=== PATIENT | female | born 1955 | race Caucasian/White ===

== ENCOUNTER 2020-03-06 14:53 | Outpatient (REF) | payer OTHER, SELFPAY ==
[2020-03-06 15:07] LABS: Basophils Percent Auto 0.4 % (0-2); Eosinophils Absolute Auto 0.1 X10*3/uL (0.0-0.4); Eosinophils Percent Auto 1.2 % (0-4); Hematocrit 41.4 % (37-47); Hemoglobin 13.5 g/dl (12.0-16.0); Imm Gran Abs Auto 0.03 X10*3/uL (0.00-0.03); Imm Gran Pct Auto 0.3 % (0.0-0.4); Lymphocytes Absolute Auto 1.8 X10*3/uL (1.2-4.9); Lymphocytes Percent Auto 18.1 % (20-40); MANUAL DIFF FLAG NO; Mean Corpuscular HGB Conc 32.6 g/dl (31.0-35.0); Mean Corpuscular Hemoglobin 33.4 pg (27.0-33.0); Mean Corpuscular Volume 102.5 fL (80-98); Mean Platelet Volume 9.5 fL (9.4-12.3); Monocytes Percent Auto 9.4 % (2-11); Neutrophils Absolute Auto 7.2 X10*3/uL (2.0-8.3); Neutrophils Percent Auto 70.6 % (45-73); Platelet Count 347 X10*3/uL (160-400); Red Blood Count 4.04 X10*6/uL (4.20-5.50); Red Cell Distribution Width 13.5 % (11.0-16.0); White Blood Count 10.1 X10*3/uL (4.8-10.8)
== END 2020-03-06 14:54 | disposition home or self-care (01) ==
LOC: HO.BBR 14:53
PROVIDERS: Visit Provider Internal Medicine Medical Oncology
DX: D75.1 Secondary polycythemia (principal)
CPT/HCPCS: 36415; 85018; 85025; 99195

== ENCOUNTER → 2020-03-24 14:39 | Outpatient (BNVA) | payer OTHER, SELFPAY | PROVIDERS: PCP Internal Medicine; Referring Provider Internal Medicine; Visit Provider Surgery | DX: Z76.89 Persons encountering health services in other specified circumstances (principal) ==

== ENCOUNTER 2020-06-22 12:58 | Outpatient (REF) | payer OTHER, SELFPAY ==
[2020-06-22 13:19] LABS: MANUAL DIFF FLAG NO
[2020-06-22 13:21] LABS: Basophils Absolute Auto 0.1 X10*3/uL (0.0-0.2); Basophils Percent Auto 0.5 % (0-2); Eosinophils Absolute Auto 0.1 X10*3/uL (0.0-0.4); Eosinophils Percent Auto 1.3 % (0-4); Hematocrit 41.8 % (37-47); Hemoglobin 13.7 g/dl (12.0-16.0); Imm Gran Abs Auto 0.04 X10*3/uL (0.00-0.03); Imm Gran Pct Auto 0.4 % (0.0-0.4); Lymphocytes Absolute Auto 2.1 X10*3/uL (1.2-4.9); Lymphocytes Percent Auto 20.8 % (20-40); Mean Corpuscular HGB Conc 32.8 g/dl (31.0-35.0); Mean Corpuscular Hemoglobin 33.1 pg (27.0-33.0); Mean Platelet Volume 9.6 fL (9.4-12.3); Monocytes Absolute Auto 0.8 X10*3/uL (0.1-1.2); Monocytes Percent Auto 7.9 % (2-11); Neutrophils Absolute Auto 7.1 X10*3/uL (2.0-8.3); Neutrophils Percent Auto 69.1 % (45-73); Platelet Count 343 X10*3/uL (160-400); Red Blood Count 4.14 X10*6/uL (4.20-5.50); Red Cell Distribution Width 13.6 % (11.0-16.0); White Blood Count 10.3 X10*3/uL (4.8-10.8)
== END 2020-06-22 12:59 | disposition home or self-care (01) ==
LOC: HO.BBR 12:58
PROVIDERS: Visit Provider Internal Medicine Medical Oncology
DX: D75.1 Secondary polycythemia (principal)
CPT/HCPCS: 36415; 85018; 85025; 99195

== ENCOUNTER 2020-08-21 13:14 | Outpatient (REF) | payer OTHER, SELFPAY ==
[2020-08-21 13:37] LABS: MANUAL DIFF FLAG NO
[2020-08-21 13:40] LABS: Basophils Percent Auto 0.3 % (0-2); Eosinophils Absolute Auto 0.2 X10*3/uL (0.0-0.4); Eosinophils Percent Auto 1.8 % (0-4); Hematocrit 41.5 % (37-47); Hemoglobin 13.6 g/dl (12.0-16.0); Imm Gran Abs Auto 0.01 X10*3/uL (0.00-0.03); Imm Gran Pct Auto 0.1 % (0.0-0.4); Lymphocytes Absolute Auto 2.2 X10*3/uL (1.2-4.9); Lymphocytes Percent Auto 23.5 % (20-40); Mean Corpuscular HGB Conc 32.8 g/dl (31.0-35.0); Mean Corpuscular Hemoglobin 32.4 pg (27.0-33.0); Mean Corpuscular Volume 98.8 fL (80-98); Mean Platelet Volume 9.5 fL (9.4-12.3); Monocytes Absolute Auto 0.7 X10*3/uL (0.1-1.2); Monocytes Percent Auto 7.8 % (2-11); Neutrophils Absolute Auto 6.3 X10*3/uL (2.0-8.3); Neutrophils Percent Auto 66.5 % (45-73); Platelet Count 355 X10*3/uL (160-400); Red Cell Distribution Width 13.2 % (11.0-16.0); White Blood Count 9.5 X10*3/uL (4.8-10.8)
== END 2020-08-21 13:15 | disposition home or self-care (01) ==
LOC: HO.BBR 13:14
PROVIDERS: Visit Provider Internal Medicine Medical Oncology
DX: D75.1 Secondary polycythemia (principal)
CPT/HCPCS: 36415; 85018; 85025; 99195

== ENCOUNTER 2020-10-10 10:25 | Outpatient (REF) | payer OTHER, SELFPAY ==
--- NOTE | ~2020-10-10 | MM_ITS ---
EXAMINATION: MM DIAGNOSTIC DIGITAL BREAST TOMOSYNTHESIS, BILATERAL CLINICAL INFORMATION: Status post left breast lumpectomy COMPARISON: Mammography: August 23, 2019 and studies dating back to February 15, 2010 TECHNIQUE: Digital breast tomosynthesis is performed in both the craniocaudal and mediolateral oblique views along with computer-aided detection (CAD). Synthesized 2D images are generated from the tomosynthesis. Additional spot magnification views of the left breast in craniocaudal and 90 degree mediolateral views performed. FINDINGS: There are scattered areas of fibroglandular density (ACR BI-RADS breast composition Category b). Patient is status post left breast lumpectomy and radiation therapy with postsurgical scarring and skin thickening. No new abnormal dominant mass is appreciated. No suspicious grouping of microcalcifications is seen. Results are provided to the patient at time of visit by the technologist. MM/MM tomosynthesis diagnostic BI IMPRESSION: There are no significant changes from prior study. ASSESSMENT: BI-RADS 2: Benign RECOMMENDATION: Routine annual mammography screening due in 12 months. This patient's information was entered into a reminder system with a target due date for their next mammogram.
== END 2020-10-10 10:26 | disposition home or self-care (01) ==
LOC: HO.MAMMO 10:25
PROVIDERS: Visit Provider Internal Medicine
DX: R92.2 Inconclusive mammogram (principal); Z98.890 Other specified postprocedural states
CPT/HCPCS: 77062; 77066

== ENCOUNTER 2020-11-09 14:52 | Outpatient (REF) | payer OTHER, SELFPAY ==
[2020-11-09 15:05] LABS: Basophils Absolute Auto 0.1 X10*3/uL (0.0-0.2); Basophils Percent Auto 0.5 % (0-2); Eosinophils Absolute Auto 0.2 X10*3/uL (0.0-0.4); Eosinophils Percent Auto 1.3 % (0-4); Hematocrit 43.5 % (37-47); Hemoglobin 14.1 g/dl (12.0-16.0); Imm Gran Abs Auto 0.05 X10*3/uL (0.00-0.03); Imm Gran Pct Auto 0.4 % (0.0-0.4); Lymphocytes Absolute Auto 1.8 X10*3/uL (1.2-4.9); Lymphocytes Percent Auto 14.9 % (20-40); MANUAL DIFF FLAG NO; Mean Corpuscular HGB Conc 32.4 g/dl (31.0-35.0); Mean Corpuscular Hemoglobin 32.6 pg (27.0-33.0); Mean Corpuscular Volume 100.7 fL (80-98); Mean Platelet Volume 9.5 fL (9.4-12.3); Monocytes Absolute Auto 0.9 X10*3/uL (0.1-1.2); Monocytes Percent Auto 7.3 % (2-11); Neutrophils Absolute Auto 9.1 X10*3/uL (2.0-8.3); Neutrophils Percent Auto 75.6 % (45-73); Platelet Count 368 X10*3/uL (160-400); Red Blood Count 4.32 X10*6/uL (4.20-5.50); Red Cell Distribution Width 14.3 % (11.0-16.0); White Blood Count 12.1 X10*3/uL (4.8-10.8)
== END 2020-11-09 14:53 | disposition home or self-care (01) ==
LOC: HO.BBR 14:52
PROVIDERS: Visit Provider Internal Medicine Medical Oncology
DX: D75.1 Secondary polycythemia (principal)
CPT/HCPCS: 36415; 85025

== ENCOUNTER 2020-11-17 06:26 | Outpatient (REF) | payer OTHER, SELFPAY ==
[2020-11-17 06:54] LABS: MANUAL DIFF FLAG NO
[2020-11-17 06:59] LABS: Basophils Absolute Auto 0.1 X10*3/uL (0.0-0.2); Basophils Percent Auto 0.6 % (0-2); Eosinophils Absolute Auto 0.2 X10*3/uL (0.0-0.4); Eosinophils Percent Auto 2.2 % (0-4); Hematocrit 43.2 % (37-47); Hemoglobin 14.1 g/dl (12.0-16.0); Imm Gran Abs Auto 0.04 X10*3/uL (0.00-0.03); Imm Gran Pct Auto 0.5 % (0.0-0.4); Lymphocytes Absolute Auto 1.5 X10*3/uL (1.2-4.9); Lymphocytes Percent Auto 19.1 % (20-40); Mean Corpuscular HGB Conc 32.6 g/dl (31.0-35.0); Mean Corpuscular Hemoglobin 32.6 pg (27.0-33.0); Mean Corpuscular Volume 99.8 fL (80-98); Mean Platelet Volume 9.9 fL (9.4-12.3); Monocytes Absolute Auto 0.6 X10*3/uL (0.1-1.2); Monocytes Percent Auto 7.9 % (2-11); Neutrophils Absolute Auto 5.5 X10*3/uL (2.0-8.3); Neutrophils Percent Auto 69.7 % (45-73); Platelet Count 365 X10*3/uL (160-400); Red Blood Count 4.33 X10*6/uL (4.20-5.50); White Blood Count 7.9 X10*3/uL (4.8-10.8)
[2020-11-17 07:25] LABS: Alanine Aminotransferase 16 U/L (0-31); Albumin Level 4.1 g/dL (3.5-5.0); Alkaline Phosphatase 79 U/L (39-117); Anion Gap 13 (12-20); Aspartate Amino Transferase 19 U/L (5-31); Bilirubin Total 0.6 mg/dL (0.0-1.0); Blood Urea Nitrogen 16 mg/dL (9-16); Calcium 9.4 mg/dL (8.4-10.2); Carbon Dioxide 27 mmol/L (22-29); Chloride 105 mmol/L (96-108); Cholesterol 159 mg/dL; Estimated Glomerular Filt Rate > 60; Glucose Random 113 mg/dL (60-115); HDL Cholesterol 39 mg/dL; LDL Cholesterol Calculated 105 mg/dl; Potassium 4.6 mmol/L (3.3-5.1); Sodium 140 mmol/L (135-145); Total Protein 7.4 g/dL (6.5-8.0); Triglycerides 78 mg/dL
== END 2020-11-17 06:27 | disposition home or self-care (01) ==
LOC: HO.LAB 06:26
PROVIDERS: PCP Internal Medicine; Visit Provider Internal Medicine
DX: E78.2 Mixed hyperlipidemia (principal); I10 Essential (primary) hypertension; J01.80 Other acute sinusitis; J03.90 Acute tonsillitis, unspecified
CPT/HCPCS: 36415; 80053; 80061; 85025

== ENCOUNTER 2021-01-12 14:57 | Outpatient (REF) | payer OTHER, SELFPAY ==
[2021-01-12 15:10] LABS: MANUAL DIFF FLAG NO
[2021-01-12 15:11] LABS: Basophils Percent Auto 0.3 % (0-2); Eosinophils Absolute Auto 0.2 X10*3/uL (0.0-0.4); Eosinophils Percent Auto 1.6 % (0-4); Hematocrit 42.6 % (37-47); Hemoglobin 14.1 g/dl (12.0-16.0); Imm Gran Abs Auto 0.03 X10*3/uL (0.00-0.03); Imm Gran Pct Auto 0.3 % (0.0-0.4); Lymphocytes Absolute Auto 1.7 X10*3/uL (1.2-4.9); Lymphocytes Percent Auto 14.5 % (20-40); Mean Corpuscular HGB Conc 33.1 g/dl (31.0-35.0); Mean Corpuscular Hemoglobin 33.4 pg (27.0-33.0); Mean Corpuscular Volume 100.9 fL (80-98); Mean Platelet Volume 9.6 fL (9.4-12.3); Monocytes Percent Auto 8.5 % (2-11); Neutrophils Absolute Auto 8.8 X10*3/uL (2.0-8.3); Neutrophils Percent Auto 74.8 % (45-73); Platelet Count 386 X10*3/uL (160-400); Red Blood Count 4.22 X10*6/uL (4.20-5.50); Red Cell Distribution Width 13.7 % (11.0-16.0); White Blood Count 11.7 X10*3/uL (4.8-10.8)
== END 2021-01-12 14:58 | disposition home or self-care (01) ==
LOC: HO.BBR 14:57
PROVIDERS: PCP Internal Medicine; Visit Provider Internal Medicine Medical Oncology
DX: D75.1 Secondary polycythemia (principal)
CPT/HCPCS: 36415; 85014; 85018; 85025; 99195

== ENCOUNTER 2021-03-15 14:49 | Outpatient (REF) | payer OTHER, SELFPAY ==
[2021-03-15 15:04] LABS: Hematocrit 40.6 % (37.0-47.0); Hemoglobin 13.4 g/dl (12.0-16.0); Mean Platelet Volume 9.5 fL (9.4-12.3); Platelet Count 381 X10*3/uL (160-400); Red Blood Count 3.94 X10*6/uL (4.20-5.50); Red Cell Distribution Width 14.5 % (11.0-16.0); White Blood Count 11.3 X10*3/uL (4.8-10.8)
== END 2021-03-15 14:50 | disposition home or self-care (01) ==
LOC: HO.BBR 14:49
PROVIDERS: PCP Internal Medicine; Visit Provider Internal Medicine Medical Oncology
DX: D75.1 Secondary polycythemia (principal)
CPT/HCPCS: 36415; 85027

== ENCOUNTER 2021-05-13 14:44 | Outpatient (REF) | payer OTHER, SELFPAY ==
[2021-05-13 14:53] LABS: MANUAL DIFF FLAG NO
[2021-05-13 14:55] LABS: Basophils Percent Auto 0.2 % (0-2); Eosinophils Absolute Auto 0.2 X10*3/uL (0.0-0.4); Eosinophils Percent Auto 1.6 % (0-4); Hematocrit 39.9 % (37.0-47.0); Imm Gran Abs Auto 0.06 X10*3/uL (0.00-0.03); Imm Gran Pct Auto 0.5 % (0.0-0.4); Lymphocytes Absolute Auto 1.7 X10*3/uL (1.2-4.9); Lymphocytes Percent Auto 13.2 % (20-40); Mean Corpuscular HGB Conc 32.6 g/dl (31.0-35.0); Mean Corpuscular Hemoglobin 33.9 pg (27.0-33.0); Mean Corpuscular Volume 104.2 fL (80.0-98.0); Mean Platelet Volume 9.8 fL (9.4-12.3); Monocytes Absolute Auto 1.1 X10*3/uL (0.1-1.2); Monocytes Percent Auto 8.2 % (2-11); Neutrophils Absolute Auto 9.8 x10*3/uL (2.0-8.3); Neutrophils Percent Auto 76.3 % (45-73); Platelet Count 303 X10*3/uL (160-400); Red Blood Count 3.83 X10*6/uL (4.20-5.50); Red Cell Distribution Width 13.6 % (11.0-16.0); White Blood Count 12.9 X10*3/uL (4.8-10.8)
== END 2021-05-13 14:45 | disposition home or self-care (01) ==
LOC: HO.BBR 14:44
PROVIDERS: Visit Provider Internal Medicine Medical Oncology
DX: D75.1 Secondary polycythemia (principal)
CPT/HCPCS: 36415; 85025

== ENCOUNTER 2021-06-28 07:16 | Outpatient (REF) | payer OTHER, SELFPAY ==
[2021-06-28 07:44] LABS: MANUAL DIFF FLAG NO
[2021-06-28 08:01] LABS: Basophils Absolute Auto 0.1 X10*3/uL (0.0-0.2); Basophils Percent Auto 0.7 % (0-2); Eosinophils Absolute Auto 0.2 X10*3/uL (0.0-0.4); Eosinophils Percent Auto 3.1 % (0-4); Hematocrit 42.5 % (37.0-47.0); Hemoglobin 13.9 g/dl (12.0-16.0); Imm Gran Abs Auto 0.02 X10*3/uL (0.00-0.03); Imm Gran Pct Auto 0.3 % (0.0-0.4); Lymphocytes Absolute Auto 1.5 X10*3/uL (1.2-4.9); Lymphocytes Percent Auto 20.1 % (20-40); Mean Corpuscular HGB Conc 32.7 g/dl (31.0-35.0); Mean Corpuscular Hemoglobin 33.5 pg (27.0-33.0); Mean Corpuscular Volume 102.4 fL (80.0-98.0); Monocytes Absolute Auto 0.6 X10*3/uL (0.1-1.2); Monocytes Percent Auto 8.4 % (2-11); Neutrophils Absolute Auto 5.2 x10*3/uL (2.0-8.3); Neutrophils Percent Auto 67.4 % (45-73); Platelet Count 382 X10*3/uL (160-400); Red Blood Count 4.15 X10*6/uL (4.20-5.50); Red Cell Distribution Width 13.2 % (11.0-16.0); White Blood Count 7.7 X10*3/uL (4.8-10.8)
[2021-06-28 08:26] LABS: Alanine Aminotransferase 20 U/L (0-31); Alkaline Phosphatase 72 U/L (39-117); Anion Gap 11 (12-20); Aspartate Amino Transferase 18 U/L (5-31); Bilirubin Total 0.6 mg/dL (0.0-1.0); Blood Urea Nitrogen 26 mg/dL (9-16); Calcium 9.4 mg/dL (8.4-10.2); Carbon Dioxide 29 mmol/L (22-29); Chloride 101 mmol/L (96-108); Cholesterol 145 mg/dL; Estimated Glomerular Filt Rate 57; Glucose Random 104 mg/dL (60-115); HDL Cholesterol 34 mg/dL; LDL Cholesterol Calculated 89 mg/dl; Potassium 4.9 mmol/L (3.3-5.1); Sodium 136 mmol/L (135-145); Total Protein 7.2 g/dL (6.5-8.0); Triglycerides 111 mg/dL
[2021-06-28 08:45] LABS: Erythrocyte Sedimentation Rate 16 MM/HR (0-20)
[2021-06-28 08:48] LABS: Thyroid Stimulating Hormone 1.45 uIU/mL (0.32-4.0)
== END 2021-06-28 07:17 | disposition home or self-care (01) ==
LOC: HO.LAB 07:16
PROVIDERS: Absent Provider Internal Medicine Medical Oncology; PCP Internal Medicine; Visit Provider Internal Medicine
DX: Z00.01 Encounter for general adult medical examination with abnormal findings (principal); M48.062 Spinal stenosis, lumbar region with neurogenic claudication; I10 Essential (primary) hypertension; E78.00 Pure hypercholesterolemia, unspecified; C50.412 Malignant neoplasm of upper-outer quadrant of left female breast; E66.9 Obesity, unspecified; E61.1 Iron deficiency
CPT/HCPCS: 36415; 80053; 80061; 84443; 85025; 85652

== ENCOUNTER 2021-07-12 14:46 | Outpatient (REF) | payer OTHER, SELFPAY ==
[2021-07-12 15:06] LABS: Hematocrit 40.3 % (37.0-47.0); Hemoglobin 13.4 g/dl (12.0-16.0); Mean Corpuscular HGB Conc 33.3 g/dl (31.0-35.0); Mean Corpuscular Hemoglobin 33.3 pg (27.0-33.0); Mean Corpuscular Volume 100.2 fL (80.0-98.0); Mean Platelet Volume 9.9 fL (9.4-12.3); Platelet Count 334 X10*3/uL (160-400); Red Blood Count 4.02 X10*6/uL (4.20-5.50); Red Cell Distribution Width 13.1 % (11.0-16.0); White Blood Count 9.5 X10*3/uL (4.8-10.8)
== END 2021-07-12 14:47 | disposition home or self-care (01) ==
LOC: HO.BBR 14:46
PROVIDERS: Visit Provider Internal Medicine Medical Oncology
DX: D75.1 Secondary polycythemia (principal)
CPT/HCPCS: 36415; 85014; 85018; 85027; 99195

== ENCOUNTER 2021-09-21 14:40 | Outpatient (REF) | payer OTHER, SELFPAY ==
[2021-09-21 14:52] LABS: MANUAL DIFF FLAG NO
[2021-09-21 14:56] LABS: Basophils Percent Auto 0.4 % (0-2); Eosinophils Absolute Auto 0.2 X10*3/uL (0.0-0.4); Eosinophils Percent Auto 1.7 % (0-4); Hematocrit 41.6 % (37.0-47.0); Hemoglobin 13.6 g/dl (12.0-16.0); Imm Gran Abs Auto 0.04 X10*3/uL (0.00-0.03); Imm Gran Pct Auto 0.4 % (0.0-0.4); Lymphocytes Absolute Auto 1.9 X10*3/uL (1.2-4.9); Lymphocytes Percent Auto 17.5 % (20-40); Mean Corpuscular HGB Conc 32.7 g/dl (31.0-35.0); Mean Corpuscular Hemoglobin 32.7 pg (27.0-33.0); Mean Platelet Volume 9.8 fL (9.4-12.3); Monocytes Percent Auto 9.2 % (2-11); Neutrophils Absolute Auto 7.9 x10*3/uL (2.0-8.3); Neutrophils Percent Auto 70.8 % (45-73); Platelet Count 374 X10*3/uL (160-400); Red Blood Count 4.16 X10*6/uL (4.20-5.50); Red Cell Distribution Width 13.3 % (11.0-16.0); White Blood Count 11.1 X10*3/uL (4.8-10.8)
== END 2021-09-21 14:41 | disposition home or self-care (01) ==
LOC: HO.BBR 14:40
PROVIDERS: Visit Provider Internal Medicine Medical Oncology
DX: D75.1 Secondary polycythemia (principal)
CPT/HCPCS: 36415; 85018; 85025; 99195

== ENCOUNTER 2021-10-06 00:24 | Inpatient (IN) | payer OTHER, SELFPAY ==
[2021-10-06] VITALS (7 sets, daily range): BP systolic 148–185; BP diastolic 63–88; PULSE 72–87; RESP 14–20; TEMP 35.7–36.8; O2SAT 89–99; BMI 36.2
--- NOTE | ~2021-10-06 | CT_ITS ---
EXAMINATION: CT SOFT TISSUE NECK WITH CONTRAST CLINICAL INFORMATION: Peritonsillar abscess. COMPARISON: None TECHNIQUE: Following the intravenous administration of 98 mL of Omnipaque 350 intravenous contrast, helical imaging was performed in the axial plane with generation of coronal and sagittal reformatted images. This CT examination was performed using dose optimization techniques as appropriate, variously including the following: *Automated exposure control *Adjustment of mA and/or kV according to patient size (this includes techniques or standardized protocols for targeted exams where dose is matched to indication/reason for exam; i.e. extremities or head) *Use of iterative reconstruction technique DLP: 702 mGy-cm FINDINGS: Diffuse asymmetric prominence of the right palatine tonsil is noted. Mild reticulation of the peritonsillar fat is noted with findings extending to the right parapharyngeal fat and right submandibular region. No discrete tonsillar or peritonsillar fluid collection is identified. Enlargement of the right tonsil results in partial effacement of the adjacent airway. The left tonsil is less prominent size but exhibits mild diffuse fullness. Incidental note is made of bilateral tonsilliths. Of note, multifocal dental amalgam is present and gives rise to scattering artifact partially scattering visualization of adjacent transaxial structures. No lymphadenopathy is noted. Mild nonocclusive bilateral carotid bulb calcific and noncalcific atherosclerotic plaque is visualized. The visualized lung apices are clear. The thyroid is normal in appearance. Normal intraluminal opacification is noted in the internal jugular veins. The parotid and visualized submandibular glands are normal in appearance. Within the incidentally visualized intracranial structures, no gross abnormalities are noted. The orbits and globes are normal in appearance. No significant opacification of the visualized paranasal sinuses, mastoid air cells and middle ear cavities. Moderate intervertebral disc space narrowing and endplate osteophytosis is present at C5-C6. CT/CT soft tissue neck w con IMPRESSION: *Diffuse enlargement of the right palatine tonsil with mild surrounding inflammatory changes which extend to the right submandibular region. No discrete tonsillar or peritonsillar abscess identified. Enlargement of the right tonsil partially effaces the adjacent airway.
--- NOTE | 2021-10-06 01:20 | PC.NURSE ---
Pt self presents from home with reports of sore throat beginning this morning, significant swelling to primarily right tonsil and roof of mouth beginning late afternoon and worsening after dinner. Pt reports hx of abscess and frequent infections in same tonsil. A&Ox3 skin pwd respirations even unlabored, maintaining airway without difficulty despite significant swelling. Speaking in full clear sentences with hoarse voice. Denies fever or accompanying symptoms. Awaiting MD primary eval.
--- NOTE | 2021-10-06 01:24 | ED_ITS ---
HPI - URI/Sore Throat General Chief Complaint: Dyspnea Stated Complaint: throat & tonsils swollen, difficulty breathing Time Seen by Provider: 10/06/21 01:22 Source: patient Mode of arrival: ambulatory Limitations: no limitations History of Present Illness HPI Narrative: Patient complaining of increased sore throat with swelling with a muffled voice since earlier today history of tonsillar abscess in the past had COVID last month pain radiating to the right ear muffled voice no shortness of breath no fever or chills Related Data Home Medications Medication Instructions Recorded Confirmed anastrozole 1 mg tablet 1 mg PO DAILY 03/24/20 lorazepam 1 mg tablet 1 mg PO DAILY PRN 03/24/20 losartan 50 mg tablet 50 mg PO DAILY 03/24/20 pravastatin 40 mg tablet 40 mg PO DAILY 03/24/20 Previous Rx's Medication Instructions Recorded amoxicillin 875 mg-potassium 1 tab PO BID #20 tabs 10/06/21 clavulanate 125 mg tablet ibuprofen 600 mg tablet 600 mg PO Q6H PRN pain #30 tabs 10/06/21 Allergies Allergy/AdvReac Type Severity Reaction Status Date / Time gluten [Gluten] Allergy Unknown UNKNOWN Verified 03/24/20 14:51 egg [Egg] AdvReac Mild NAUSEA Verified 03/24/20 14:51 ENVIRONMENTAL Allergy Unknown UNKNOWN Uncoded 01/02/20 16:40 Review of Systems Review of Systems: Yes all other systems are reviewed and are negative PMF Past Medical History Medical History History of left breast cancer Hypercholesterolemia Hypertension Surgical History History of lumpectomy of left breast History of lymph node excision Social History Social History Alcohol intake: current Alcohol intake frequency: holidays/special occasions only Advance Directives: No Physical Exam Vital Signs: Vital Signs: Last Vital Signs Temp 98.3 F 10/06/21 00:30 Pulse 87 10/06/21 00:30 Resp 16 10/06/21 00:30 BP 185/80 H 10/06/21 00:30 Pulse Ox 97 10/06/21 00:30 O2 Del Method 10/06/21 00:30 BMI result Body Mass Index 36.2 Const: General: healthy appearing and comfortable Nutritional Appearance: average body habitus and well nourished Orientation/consciousness: oriented to person, oriented to place, oriented to time and patient oriented x3 HEENT: Mouth/tongue images: 1. Enlarged soft tissue swelling clinically perit onsillar abscess with midline shift to the right Neck: Neck: Yes normal visual inspection and Yes lymphadenopathy (Anterior cervical right-sided lymph node ++) Lymphatic: lymphadenopathy Resp: Effort & Inspection: normal respiratory effort Auscultation: clear to auscultation bilaterally Cardio: Palpation: normal PMI Rate: regular rate Rhythm: regular rhythm Heart sounds: S1 normal heart sound present and S2 normal heart sound present GI: Inspection: Yes normal to inspection Palpation (GI): Soft to palpation Auscultation: normal bowel sounds Neuro: General: oriented to person, oriented to place, oriented to time and patient oriented x3 MDM - URI/Sore Throat MDM Narrative Medical decision making narrative: Patient clinically better right peritonsillar abscess which started earlier today needle aspiration tried from superior middle and lower level of right peritonsillar area after sedation with lidocaine only very small amount of pus drained. Will do CT neck to rule out deeper space infection. Patient was given IV Rocephin and IV Decadron signed out to Dr. Aparicio pending CT scan Lab Data Attestation: I reviewed the patient's lab results. Result diagrams: 10/06/21 01:43 10/06/21 01:43 Labs: Lab Results 10/06/21 10/06/21 Range/Units 01:20 01:43 WBC 13.6 H (4.8-10.8) X10*3/uL RBC 3.71 L (4.20-5.50) X10*6/uL Hgb 12.1 (12.0-16.0) g/dl Hct 37.2 (37.0-47.0) % MCV 100.3 H (80.0-98.0) fL MCH 32.6 (27.0-33.0) pg MCHC 32.5 (31.0-35.0) g/dl RDW 13.7 (11.0-16.0) % Plt Count 382 (160-400) X10*3/uL MPV 9.7 (9.4-12.3) fL Immature Gran % (Auto) 0.4 (0.0-0.4) % Neut % (Auto) 76.2 H (45-73) % Lymph % (Auto) 12.3 L (20-40) % Irion % (Auto) 8.9 (2-11) % Eos % (Auto) 1.8 (0-4) % Baso % (Auto) 0.4 (0-2) % Lymph # (Auto) 1.7 (1.2-4.9) X10*3/uL Irion # (Auto) 1.2 (0.1-1.2) X10*3/uL Eos # (Auto) 0.2 (0.0-0.4) X10*3/uL Baso # (Auto) 0.1 (0.0-0.2) X10*3/uL Abs Immat Gran (auto) 0.05 H (0.00-0.03) X10*3/uL Absolute Neuts (auto) 10.3 H (2.0-8.3) x10*3/uL Absolute Nucleated RBC 0.000 (0.0-0.012) X10*3/uL Nucleated RBC % (auto) 0.0 (0.0-0.2) /100WBC S. pyogenes GrpA HANS Negative (Negative) Discharge Plan Discharge Clinical Impression: Abscess, peritonsillar Patient Disposition: Still a Patient Instructions: Peritonsillar Abscess (ED) Additional Instructions: Saline gargles as advised Antibiotic as prescribed Follow-up with ENT if not better Prescriptions: New ibuprofen 600 mg tablet 600 mg PO Q6H PRN (Reason: pain) Qty: 30 0RF amoxicillin-pot clavulanate 875-125 mg tablet 1 tab PO BID Qty: 20 0RF No Action losartan 50 mg tablet 50 mg PO DAILY anastrozole 1 mg tablet 1 mg PO DAILY lorazepam 1 mg tablet 1 mg PO DAILY PRN pravastatin 40 mg tablet 40 mg PO DAILY
[2021-10-06 01:40] LABS: Strep A Nucleic Acid Negative (Negative)
[2021-10-06] MEDS: cefTRIAXone sodium 1 GM in 0.9 % Sodium Chloride 50 ML IV (01:40)
[2021-10-06] MEDS: dexAMETHasone 2 MG TABLET 10 MG PO (01:41)
[2021-10-06 01:47] LABS: MANUAL DIFF FLAG NO
[2021-10-06 01:48] LABS: Basophils Absolute Auto 0.1 X10*3/uL (0.0-0.2); Basophils Percent Auto 0.4 % (0-2); Eosinophils Absolute Auto 0.2 X10*3/uL (0.0-0.4); Eosinophils Percent Auto 1.8 % (0-4); Hematocrit 37.2 % (37.0-47.0); Hemoglobin 12.1 g/dl (12.0-16.0); Imm Gran Abs Auto 0.05 X10*3/uL (0.00-0.03); Imm Gran Pct Auto 0.4 % (0.0-0.4); Lymphocytes Absolute Auto 1.7 X10*3/uL (1.2-4.9); Lymphocytes Percent Auto 12.3 % (20-40); Mean Corpuscular HGB Conc 32.5 g/dl (31.0-35.0); Mean Corpuscular Hemoglobin 32.6 pg (27.0-33.0); Mean Corpuscular Volume 100.3 fL (80.0-98.0); Mean Platelet Volume 9.7 fL (9.4-12.3); Monocytes Absolute Auto 1.2 X10*3/uL (0.1-1.2); Monocytes Percent Auto 8.9 % (2-11); Neutrophils Absolute Auto 10.3 x10*3/uL (2.0-8.3); Neutrophils Percent Auto 76.2 % (45-73); Platelet Count 382 X10*3/uL (160-400); Red Blood Count 3.71 X10*6/uL (4.20-5.50); Red Cell Distribution Width 13.7 % (11.0-16.0); White Blood Count 13.6 X10*3/uL (4.8-10.8)
[2021-10-06] MEDS: Lidocaine HCl 4 % Laryng-O-Jet 4 ML 1 APPL TOPICAL (01:51)
--- NOTE | 2021-10-06 02:04 | PC.NURSE ---
MD at bedside for right tonsil I&D. Very scant amount of pus drained. Pt tolerated well. Medicated per MAR, IV abx infusing without difficulty. Awaiting CT scan, pt aware of plan of care.
[2021-10-06 02:06] LABS: Alanine Aminotransferase 14 U/L (0-31); Albumin Level 4.1 g/dL (3.5-5.0); Alkaline Phosphatase 79 U/L (39-117); Anion Gap 13 (12-20); Aspartate Amino Transferase 13 U/L (5-31); Bilirubin Total 0.2 mg/dL (0.0-1.0); Blood Urea Nitrogen 24 mg/dL (9-16); Calcium 9.1 mg/dL (8.4-10.2); Carbon Dioxide 26 mmol/L (22-29); Chloride 106 mmol/L (96-108); Creatinine Clr Calc Pharmacy 64.6; Estimated Glomerular Filt Rate 55; Glucose Random 110 mg/dL (60-115); Potassium 4.3 mmol/L (3.3-5.1); Sodium 141 mmol/L (135-145); Total Protein 7.4 g/dL (6.5-8.0)
[2021-10-06] MEDS: iohexoL 350 MG/ML 100 ML INFUS..BTL 80 ML IV (03:03)
--- NOTE | 2021-10-06 03:21 | PC.NURSE ---
Took over assignment from FREDDIE Boss. Pt is sitting up right in bed. No sign of respiratory distress. Pt awaiting CT Scan results.
[2021-10-06] MEDS: Piperacillin Sodium/Tazobactam 4.5 GM in 0.9 % Sodium Chloride 100 ML IV (04:40)
[2021-10-06] MEDS: Ketorolac Tromethamine 15 MG/ML VIAL IVPUSH (04:40)
--- NOTE | 2021-10-06 04:46 | PM.IMHP ---
History of Present Illness Date of Service: 10/06/21 Chief Complaint: Throat pain 61-year-old female with a past medical history of hypertension, hyperlipidemia, anxiety, history of breast cancer presented to the hospital today with a chief complaint of throat pain. Patient reports that for the past 1 day she has been having throat pain, denies any fevers and chills. Denies any difficulty breathing or swallowing. Denies any nausea vomiting or diarrhea. Denies any chest pain or palpitations. Patient denies any recent travel or sick contacts. Review of all other systems is negative except mentioned above ER course: Per ER team patient noted to have asymmetric swelling of the right tonsil compared to the left tonsil; CT of the neck soft tissue showed no abscess but noted findings consistent with peritonsillar cellulitis. Patient was given Zosyn. Admitted to the hospital for further management. [facility] Medical History History of left breast cancer Hypercholesterolemia Hypertension Pertinent family history: Reviewed Surgical History History of lumpectomy of left breast History of lymph node excision Social History Alcohol intake: current Alcohol intake frequency: a few times a week Patient Tobacco Use Status: Current everyday Tobacco user Use of substances other than those prescribed or required for medical reasons: No Advance Directives: No Meds Allergies Allergy/AdvReac Type Severity Reaction Status Date / Time gluten [Gluten] Allergy Unknown UNKNOWN Verified 03/24/20 14:51 egg [Egg] AdvReac Mild NAUSEA Verified 03/24/20 14:51 ENVIRONMENTAL Allergy Unknown UNKNOWN Uncoded 01/02/20 16:40 Active Medications: Current Medications Acetaminophen (Acetaminophen 325 Mg Tablet) 650 mg PO Q6H PRN PRN Reason: Pain, Mild (Pain Scale 1-3) Dexamethasone Sodium Phosphate (Dexamethasone Sod Phosphate 4 Mg/Ml Vial) 6 mg IVPUSH DAILY SLIM Enoxaparin Sodium (Enoxaparin Sodium 40 Mg/0.4 Ml Syringe) 40 mg SUBCUT Q24H SLIM Hydromorphone HCl (Hydromorphone Hcl 1 Mg/Ml Syringe) 0.5 mg IVPUSH Q4H PRN; Protocol PRN Reason: Pain, Severe (Pain Scale 7-10) Piperacillin Sod/Tazobactam (Sod 4.5 gm/ Sodium Chloride) 100 mls @ 200 mls/hr IV ONCE STA Stop: 10/06/21 04:57 Piperacillin Sod/Tazobactam (Sod 3.375 gm/ Sodium Chloride) 50 mls @ 100 mls/hr IV Q6H [facility] Melatonin (Melatonin 3 Mg Tablet) 6 mg PO BEDTIME PRN PRN Reason: Insomnia Senna (Sennosides 8.6 Mg Tablet) 17.2 mg PO BEDTIME PRN PRN Reason: Constipation Sodium Chloride (0.9 % Sodium Chloride Flush 3 Ml Syringe) 3 ml IVFLUSH QSHIFT [facility] Home Medications Medication Instructions Recorded Confirmed Last Taken Type anastrozole 1 mg tablet 1 mg PO DAILY 03/24/20 Unknown History lorazepam 1 mg tablet 1 mg PO DAILY PRN 03/24/20 Unknown History losartan 50 mg tablet 50 mg PO DAILY 03/24/20 Unknown History pravastatin 40 mg tablet 40 mg PO DAILY 03/24/20 Unknown History Physical Exam Vital Signs and Narrative: Vital Signs: Last Vital Signs Temp 97.6 F 10/06/21 02:16 Pulse 80 10/06/21 02:16 Resp 20 10/06/21 02:16 BP 152/63 H 10/06/21 02:16 Pulse Ox 99 10/06/21 02:16 O2 Del Method 10/06/21 02:16 BMI result Body Mass Index 36.2 Gen: Appears be in no acute distress HEENT: NCAT, Moist mucosa. Noted mild tonsillar swelling and erythema. Pulmonary: Vesicular breath sounds, fair air entry CVS: Normal S1-S2 Abdomen: BS+, Soft, Nontender Extremities: Warm well perfused Neuro: Alert and awake. Results Labs CBC and Chem 7: 10/06/21 01:43 10/06/21 01:43 Labs: Laboratory Results - last 24 hr 10/06/21 10/06/21 10/06/21 01:20 01:43 01:43 MCV 100.3 H MCH 32.6 MCHC 32.5 RDW 13.7 Plt Count 382 MPV 9.7 Immature Gran % (Auto) 0.4 Neut % (Auto) 76.2 H Lymph % (Auto) 12.3 L Benzie % (Auto) 8.9 Eos % (Auto) 1.8 Baso % (Auto) 0.4 Lymph # (Auto) 1.7 Benzie # (Auto) 1.2 Eos # (Auto) 0.2 Baso # (Auto) 0.1 Abs Immat Gran (auto) 0.05 H Absolute Neuts (auto) 10.3 H Absolute Nucleated RBC 0.000 Nucleated RBC % (auto) 0.0 Anion Gap 13 Estim Creat Clear Calc 64.6 Estimated GFR 55 Random Glucose 110 Calcium 9.1 Total Bilirubin 0.2 AST 13 ALT 14 Alkaline Phosphatase 79 Total Protein 7.4 Albumin 4.1 S. pyogenes GrpA HANS Negative Imaging Radiologist's Impressions: Impressions Soft Tissue Neck CT 10/06/21 03:00 IMPRESSION: *Diffuse enlargement of the right palatine tonsil with mild surrounding inflammatory changes which extend to the right submandibular region. No discrete tonsillar or peritonsillar abscess identified. Enlargement of the right tonsil partially effaces the adjacent airway. Assessment and Plan (1) Peritonsillar cellulitis: Status: Acute Plan 66-year-old female with a past medical history of hypertension, hyperlipidemia, anxiety, breast cancer presented to the hospital with a chief complaint of throat pain-noted to have. On/cellulitis. Admitted for further management. Peritonsillar cellulitis: Continue IV Zosyn. Continue Decadron Pain control Aspiration precautions History of hypertension/hyperlipidemia: Continue home medications. DVT prophylaxis: Lovenox Code status: Full code Quality Stroke Does the patient have a stroke diagnosis?: No VTE Prior VTE?: No VTE Risk Level:: Medical - moderate - high VTE Device Contraindication: Treatment Not Indicated VTE Drug Contraindication: N/A - Med Ordered
--- NOTE | 2021-10-06 04:56 | PC.NURSE ---
medicated per Mar. pt does not demonstrate any respiratory distress. No increase sob or retractions.
[2021-10-06 06:06] LABS: COVID-19 Test Negative (Negative)
[2021-10-06 06:13] LABS: Basophils Percent Auto 0.2 % (0-2); Eosinophils Percent Auto 0.1 % (0-4); Hematocrit 36.2 % (37.0-47.0); Hemoglobin 11.9 g/dl (12.0-16.0); Imm Gran Abs Auto 0.13 X10*3/uL (0.00-0.03); Imm Gran Pct Auto 0.9 % (0.0-0.4); Lymphocytes Absolute Auto 0.5 X10*3/uL (1.2-4.9); Lymphocytes Percent Auto 3.6 % (20-40); MANUAL DIFF FLAG SCAN; Mean Corpuscular HGB Conc 32.9 g/dl (31.0-35.0); Mean Corpuscular Hemoglobin 32.7 pg (27.0-33.0); Mean Corpuscular Volume 99.5 fL (80.0-98.0); Mean Platelet Volume 9.8 fL (9.4-12.3); Monocytes Absolute Auto 0.2 X10*3/uL (0.1-1.2); Monocytes Percent Auto 1.1 % (2-11); Neutrophils Absolute Auto 13.1 x10*3/uL (2.0-8.3); Neutrophils Percent Auto 94.1 % (45-73); Platelet Count 375 X10*3/uL (160-400); Red Blood Count 3.64 X10*6/uL (4.20-5.50); Red Cell Distribution Width 13.7 % (11.0-16.0); SCAN SMEAR FLAG 1
[2021-10-06 06:31] LABS: Anion Gap 13 (12-20); Blood Urea Nitrogen 21 mg/dL (9-16); Carbon Dioxide 24 mmol/L (22-29); Chloride 105 mmol/L (96-108); Creatinine Clr Calc Pharmacy 68.7; Estimated Glomerular Filt Rate 59; Glucose Random 145 mg/dL (60-115); Potassium 4.1 mmol/L (3.3-5.1); Sodium 138 mmol/L (135-145)
[2021-10-06 06:39] LABS: SLIDE REVIEW VERIFIED
--- NOTE | 2021-10-06 07:13 | PC.NURSE ---
Pt alert and awake, speaking full sentences, muffled speech. LS CTA. Right sided tonsillar swelling noted, improved per pt. Managing secretions and airway patent.
--- NOTE | 2021-10-06 08:31 | PHA.MEDREC ---
Pharmacy Consult ? Medication Reconciliation Pharmacy has completed the medication reconciliation. Meds were extracted from claims. However, patient said she takes diclofenac 75mg only as needed and not at the prescribed BID dosing. Patient also takes vitamin b12 over the counter. Admits to not using her flovent inhaler since she had covid in august. Used her albuterol inhaler last night but prior to that said she was looking to dc it.
--- NOTE | 2021-10-06 09:08 | MHC.CM.PN ---
Attempted to meet with patient in regards to discharge planning. Patient currently at test. No family present. Will attempt to meet again. Continue to monitor for d/c needs.
[2021-10-06] MEDS: 0.9 % Sodium Chloride Flush 3 ML SYRINGE IVFLUSH ×2 (09:54→23:39)
[2021-10-06] MEDS: Piperacillin Sodium/Tazobactam 3.375 GM in 0.9 % Sodium Chloride 50 ML IV ×3 (09:55→21:56)
[2021-10-06] MEDS: dexAMETHasone sod phosphate 4 MG/ML VIAL 6 MG IVPUSH (09:57)
[2021-10-06] MEDS: Enoxaparin Sodium 40 MG/0.4 ML SYRINGE SUBCUT (09:57)
--- NOTE | 2021-10-06 15:01 | MHC.CM.PN ---
Met with patient and sig other, Mann, in regards to discharge planning. Patient lives alone, ambulates independently and had no services prior to coming to the hospital. PCP verified. Copy of HCP verified to be on file. Patient received 3 Pfizer vaccines. Patient has [employer] and Medicare. Registration made aware. IMM explained and signed. Mann will transport patient home when medically stable. Continue to monitor for d/c needs.
--- NOTE | 2021-10-06 16:25 | PM.EVENT ---
Event Note Date of Service: 10/06/21 Event Note: 66-year-old female with a past medical history of hypertension, hyperlipidemia, anxiety, breast cancer presented to the hospital with a chief complaint of throat pain-noted to have.? On/cellulitis.? Admitted for further management.? Peritonsillar cellulitis likely had small abscess also, she reports hx of tonsillar abscess in the past Continue IV Zosyn.? Continue Decadron Pain control Aspiration precautions still with some erythema and edema History of hypertension/hyperlipidemia Continue home medications.? DVT prophylaxis:? Lovenox Code status:? Full code Attending Dr. Lopez
[2021-10-06] MEDS: Acetaminophen 325 MG TABLET 650 MG PO (22:19)
[2021-10-07] VITALS: BP 154/66; PULSE 76; RESP 18; TEMP 36.8; O2SAT 97
[2021-10-07 00:40] VITALS: BMI 39.3
[2021-10-07] MEDS: Piperacillin Sodium/Tazobactam 3.375 GM in 0.9 % Sodium Chloride 50 ML IV (03:45)
[2021-10-07 07:34] VITALS: BP 130/62; PULSE 68; RESP 20; TEMP 36.7; O2SAT 93
[2021-10-07] MEDS: dexAMETHasone sod phosphate 4 MG/ML VIAL 6 MG IVPUSH (09:35)
[2021-10-07] MEDS: 0.9 % Sodium Chloride Flush 3 ML SYRINGE IVFLUSH ×3 (09:35→21:25)
[2021-10-07] MEDS: Enoxaparin Sodium 40 MG/0.4 ML SYRINGE SUBCUT (09:44)
[2021-10-07] MEDS: hydroCHLOROthiazide 25 MG TABLET PO (09:44)
[2021-10-07] MEDS: Losartan Potassium 50 MG TABLET 100 MG PO (09:44)
[2021-10-07] MEDS: Ampicillin Sodium/Sulbactam Na 3 GM in 0.9 % Sodium Chloride 100 ML IV ×3 (09:55→21:25)
--- NOTE | 2021-10-07 11:22 | HO.PM.IMPN ---
Subjective Subjective Date of Service: 10/07/21 Interval History: R tonsillar swelling improved no dysphagia or dysphonia no fever Review of Systems Review of Systems: Yes all other systems are reviewed and are negative Physical Exam Vital Signs: Vital Signs: Last Vital Signs Temp 98.1 F 10/07/21 07:34 Pulse 68 10/07/21 07:34 Resp 20 10/07/21 07:34 BP 130/62 10/07/21 07:34 Pulse Ox 93 10/07/21 07:34 O2 Del Method 10/07/21 07:34 BMI result Body Mass Index 39.3 Gen: in no acute distress HEENT: sclera anicteric, moist mucus membranes, R tonsil swollen + erythematous without exudate Neck: supple, no LAD Lungs: clear to auscultation bilaterally Heart: regular rate and rhythm, no murmurs Abd: soft, non-tender, non-distended Ext: no edema Skin: warm/well-perfused Neuro: alert and oriented x3, no focal findings Psych: appropriate affect Objective Data Active Medications Acetaminophen (Acetaminophen 325 Mg Tablet) 650 mg PO Q6H PRN PRN Reason: Pain, Mild (Pain Scale 1-3) Last Admin: 10/06/21 22:19 Dose: 650 mg Documented By: EDWIN Albuterol Sulfate (Albuterol Sulfate 90 Mcg 8 Gm Inhaler) 2 puff INHALE RQID [facility] Last Admin: 10/07/21 08:10 Dose: Not Given Documented By: ALMA Non-Admin Reason: Med Not Available Dexamethasone Sodium Phosphate (Dexamethasone Sod Phosphate 4 Mg/Ml Vial) 6 mg IVPUSH DAILY [facility] Last Admin: 10/07/21 09:35 Dose: 6 mg Documented By: TATE Enoxaparin Sodium (Enoxaparin Sodium 40 Mg/0.4 Ml Syringe) 40 mg SUBCUT Q24H [facility] Last Admin: 10/07/21 09:44 Dose: 40 mg Documented By: TATE Fluticasone Propionate (Fluticasone Propionate 100 Mcg Blst.W.Dev) 2 puff INHALE RBID [facility] Last Admin: 10/07/21 08:10 Dose: Not Given Documented By: ALMA Non-Admin Reason: Med Not Available Hydrochlorothiazide (Hydrochlorothiazide 25 Mg Tablet) 25 mg PO DAILY [facility] Last Admin: 10/07/21 09:44 Dose: 25 mg Documented By: TATE Hydromorphone HCl (Hydromorphone Hcl 1 Mg/Ml Syringe) 0.5 mg IVPUSH Q4H PRN; Protocol PRN Reason: Pain, Severe (Pain Scale 7-10) Ampicillin Sodium/Sulbactam (Sodium 3 gm/ Sodium Chloride) 100 mls @ 200 mls/hr IV Q6H [facility] Last Infusion: 10/07/21 10:51 Dose: 0 mls/hr Documented By: TATE Lorazepam (Lorazepam 1 Mg Tablet) 1 mg PO DAILY PRN PRN Reason: Anxiety Losartan Potassium (Losartan Potassium 50 Mg Tablet) 100 mg PO DAILY [facility] Last Admin: 10/07/21 09:44 Dose: 100 mg Documented By: TATE Melatonin (Melatonin 3 Mg Tablet) 6 mg PO BEDTIME PRN PRN Reason: Insomnia Senna (Sennosides 8.6 Mg Tablet) 17.2 mg PO BEDTIME PRN PRN Reason: Constipation Sodium Chloride (0.9 % Sodium Chloride Flush 3 Ml Syringe) 3 ml IVFLUSH QSHIFT [facility] Last Admin: 10/07/21 09:35 Dose: 3 ml Documented By: TATE Labs CBC & Chem 7: 10/06/21 06:07 10/06/21 06:07 Assessment and Plan (1) Peritonsillar cellulitis: Status: Acute Plan hospital d#2 66yo F with HTN, HLD, anxiety, hx breast CA, obesity admitted for peritonsillar cellulitis without abscess # peritonsillar cellulitis - changed pip/theresa to amp/sul, d#2 - continue dexamethasone d#2 - pain control: APAP, IV hydromorphone chronic issues # HTN: continue pravastatin # HLD: continue HCTZ + losartan # hx breast CA: continue anastrozole # VTE ppx: LMWH In my clinical judgment, the patient requires continued hospitalization for the following reasons: IV ABX Quality Stroke Does the patient have a stroke diagnosis?: No VTE Prior VTE?: No VTE Risk Level:: Medical - moderate - high VTE Device Contraindication: Treatment Not Indicated VTE Drug Contraindication: N/A - Med Ordered
[2021-10-07] MEDS: Cyanocobalamin (Vitamin B-12) 100 MCG TABLET 50 MCG PO (13:14)
[2021-10-07] MEDS: Anastrozole 1 MG TABLET PO (13:14)
[2021-10-07] MEDS: Acetaminophen 325 MG TABLET 650 MG PO (13:16)
[2021-10-07 15:18] VITALS: BP 134/62; PULSE 67; RESP 19; TEMP 36.3; O2SAT 95
[2021-10-07] MEDS: Albuterol Sulfate 90 MCG 8 GM INHALER 2 PUFF INHALE (20:12)
[2021-10-07] MEDS: Fluticasone Propionate 100 MCG BLST.W.DEV 2 PUFF INHALE (20:12)
[2021-10-07 21:10] VITALS: PULSE 67; RESP 19; O2SAT 95
[2021-10-07] MEDS: Pravastatin Sodium 80 MG TABLET PO (21:24)
[2021-10-07 23:05] VITALS: BP 128/59; PULSE 78; RESP 16; TEMP 36.5; O2SAT 92
[2021-10-08] MEDS: Ampicillin Sodium/Sulbactam Na 3 GM in 0.9 % Sodium Chloride 100 ML IV ×2 (04:27→09:34)
[2021-10-08 06:54] LABS: Hematocrit 35.9 % (37.0-47.0); Hemoglobin 11.7 g/dl (12.0-16.0); Mean Corpuscular HGB Conc 32.6 g/dl (31.0-35.0); Mean Corpuscular Hemoglobin 33.1 pg (27.0-33.0); Mean Corpuscular Volume 101.4 fL (80.0-98.0); Mean Platelet Volume 10.1 fL (9.4-12.3); Platelet Count 404 X10*3/uL (160-400); Red Blood Count 3.54 X10*6/uL (4.20-5.50); Red Cell Distribution Width 13.8 % (11.0-16.0); White Blood Count 16.3 X10*3/uL (4.8-10.8)
[2021-10-08 07:14] LABS: C Reactive Protein 0.71 mg/dL (< or = 0.50)
[2021-10-08] MEDS: dexAMETHasone sod phosphate 4 MG/ML VIAL 6 MG IVPUSH (07:39)
[2021-10-08] MEDS: Enoxaparin Sodium 40 MG/0.4 ML SYRINGE SUBCUT (07:43)
[2021-10-08] MEDS: Anastrozole 1 MG TABLET PO (07:44)
[2021-10-08] MEDS: Losartan Potassium 50 MG TABLET 100 MG PO (07:44)
[2021-10-08] MEDS: Cyanocobalamin (Vitamin B-12) 100 MCG TABLET 50 MCG PO (07:45)
[2021-10-08] MEDS: hydroCHLOROthiazide 25 MG TABLET PO (07:46)
[2021-10-08 08:00] VITALS: BP 132/61; PULSE 55; RESP 20; TEMP 36.9; O2SAT 94
[2021-10-08 08:26] VITALS: PULSE 68; RESP 18; O2SAT 96
[2021-10-08] MEDS: Fluticasone Propionate 100 MCG BLST.W.DEV 2 PUFF INHALE (08:26)
[2021-10-08] MEDS: Albuterol Sulfate 90 MCG 8 GM INHALER 2 PUFF INHALE (08:26)
[2021-10-08] MEDS: 0.9 % Sodium Chloride Flush 3 ML SYRINGE IVFLUSH (09:34)
--- NOTE | 2021-10-08 09:37 | P.DS_ITS ---
DS: Providers Provider Date of Service: 10/08/21 Date of admission: 10/06/21 04:40 Date of discharge: 10/08/21 Primary care physician: Deandra Vaughn MD DS: Diagnosis Discharge Diagnosis (1) Peritonsillar cellulitis: Status: Acute DS: Summary Hospital Course Hospital Course: from admission H+P by Anders Olivasflorecita, 10/06/21: 61-year-old female with a past medical history of hypertension, hyperlipidemia, anxiety, history of breast cancer presented to the hospital today with a chief complaint of throat pain.? Patient reports that for the past 1 day she has been having throat pain, denies any fevers and chills.? Denies any difficulty breathing or swallowing.? Denies any nausea vomiting or diarrhea.? Denies any chest pain or palpitations.? Patient denies any recent travel or sick contacts.? Review of all other systems is negative except mentioned above ER course: Per ER team patient noted to have asymmetric swelling of the right tonsil compared to the left tonsil; CT of the neck soft tissue showed no abscess but noted findings consistent with peritonsillar cellulitis.? Patient was given Zosyn.? Admitted to the hospital for further management. 66yo F with HTN, HLD, anxiety, hx breast CA, and obesity admitted for peritonsillar cellulitis without abscess; treated with piperacillin/tazobactam then ampicillin/sulbactam IV as well as dexamethasone. Symptoms improved and no evidence of peritonsillar abscess. She was discharged home with 7 days of amoxicillin/clavulanate, a 4-day dexamethasone taper, and instructions to follow up with Primary Care and ENT with consideration of tonsillectomy given recurrent tonsillitis. Time Spent with Patient Time attestation: Total time spent providing and/or coordinating discharge services: Discharge coordination time: Greater than 30 minutes Quality: Safe Use of Opioids Does Pt have an Active Cancer Diagnosis on the Problem List?: No Quality: Stroke Does the patient have a stroke diagnosis?: No Physical Exam Vital Signs: Vital Signs: Last Vital Signs Temp 98.4 F 10/08/21 08:00 Pulse 68 10/08/21 08:26 Resp 18 10/08/21 08:26 BP 132/61 10/08/21 08:00 Pulse Ox 94 10/08/21 08:00 O2 Del Method 10/08/21 08:00 BMI result Body Mass Index 39.3 Gen: in no acute distress HEENT: sclera anicteric, moist mucus membranes, R tonsil slghtly swollen + erythematous without exudate Neck: supple, no LAD, no dysphonia or dysphagia Lungs: clear to auscultation bilaterally Heart: regular rate and rhythm, no murmurs Abd: soft, non-tender, non-distended Ext: no edema Skin: warm/well-perfused Neuro: alert and oriented x3, no focal findings Psych: appropriate affect DS: Data Data Completed and Pending Labs on day of discharge: Laboratory Results WBC 16.3 X10*3/uL (4.8-10.8) H 10/08/21 06:23 RBC 3.54 X10*6/uL (4.20-5.50) L 10/08/21 06:23 Hgb 11.7 g/dl (12.0-16.0) L 10/08/21 06:23 Hct 35.9 % (37.0-47.0) L 10/08/21 06:23 MCV 101.4 fL (80.0-98.0) H 10/08/21 06:23 MCH 33.1 pg (27.0-33.0) H 10/08/21 06:23 MCHC 32.6 g/dl (31.0-35.0) 10/08/21 06:23 RDW 13.8 % (11.0-16.0) 10/08/21 06:23 Plt Count 404 X10*3/uL (160-400) H 10/08/21 06:23 MPV 10.1 fL (9.4-12.3) 10/08/21 06:23 Immature Gran % (Auto) 0.9 % (0.0-0.4) H 10/06/21 06:07 Neut % (Auto) 94.1 % (45-73) H 10/06/21 06:07 Lymph % (Auto) 3.6 % (20-40) L 10/06/21 06:07 [place] % (Auto) 1.1 % (2-11) L 10/06/21 06:07 Eos % (Auto) 0.1 % (0-4) 10/06/21 06:07 Baso % (Auto) 0.2 % (0-2) 10/06/21 06:07 Lymph # (Auto) 0.5 X10*3/uL (1.2-4.9) L 10/06/21 06:07 [place] # (Auto) 0.2 X10*3/uL (0.1-1.2) 10/06/21 06:07 Eos # (Auto) 0.0 X10*3/uL (0.0-0.4) 10/06/21 06:07 Baso # (Auto) 0.0 X10*3/uL (0.0-0.2) 10/06/21 06:07 Abs Immat Gran (auto) 0.13 X10*3/uL (0.00-0.03) H 10/06/21 06:07 Absolute Neuts (auto) 13.1 x10*3/uL (2.0-8.3) H 10/06/21 06:07 Absolute Nucleated RBC 0.000 X10*3/uL (0.0-0.012) 10/08/21 06:23 Nucleated RBC % (auto) 0.0 /100WBC (0.0-0.2) 10/08/21 06:23 Smear Tech's Comments VERIFIED 10/06/21 06:07 Sodium 138 mmol/L (135-145) 10/06/21 06:07 Potassium 4.1 mmol/L (3.3-5.1) 10/06/21 06:07 Chloride 105 mmol/L (96-108) 10/06/21 06:07 Carbon Dioxide 24 mmol/L (22-29) 10/06/21 06:07 Anion Gap 13 (12-20) 10/06/21 06:07 BUN 21 mg/dL (9-16) H 10/06/21 06:07 Creatinine 0.95 mg/dL (0.5-1.4) 10/06/21 06:07 Estim Creat Clear Calc 68.7 10/06/21 06:07 Estimated GFR 59 10/06/21 06:07 Random Glucose 145 mg/dL (60-115) H 10/06/21 06:07 Calcium 9.0 mg/dL (8.4-10.2) 10/06/21 06:07 Total Bilirubin 0.2 mg/dL (0.0-1.0) 10/06/21 01:43 AST 13 U/L (5-31) 10/06/21 01:43 ALT 14 U/L (0-31) 10/06/21 01:43 Alkaline Phosphatase 79 U/L (39-117) 10/06/21 01:43 C-Reactive Protein 0.71 mg/dL (< or = 0.50) H 10/08/21 06:23 Total Protein 7.4 g/dL (6.5-8.0) 10/06/21 01:43 Albumin 4.1 g/dL (3.5-5.0) 10/06/21 01:43 COVID-19 (IRENE) Negative (Negative) 10/06/21 05:41 COVID-19 Clin Com See Note 10/06/21 05:41 S. pyogenes GrpA HANS Negative (Negative) 10/06/21 01:20 Impressions Soft Tissue Neck CT 10/06/21 03:00 IMPRESSION: *Diffuse enlargement of the right palatine tonsil with mild surrounding inflammatory changes which extend to the right submandibular region. No discrete tonsillar or peritonsillar abscess identified. Enlargement of the right tonsil partially effaces the adjacent airway. Discharge Plan Discharge Patient Disposition: Home, Self-Care Discharge Diagnosis: peritonsillar cellulitis, tobacco abuse Referrals: Deandra Vaughn MD [Primary Care Provider] - 1 Week Shankar Chery MD [Physician] - 1 Week Discharge Medications: New ibuprofen 600 mg tablet 600 mg PO Q6H PRN (Reason: pain) Qty: 30 0RF amoxicillin-pot clavulanate 875-125 mg tablet 1 tab PO BID Qty: 14 0RF dexamethasone 1 mg tablet See Rx Instructions .ROUTE .COMPLEX Qty: 10 0RF Rx Instructions: 4 mg on 10/09, then 3 mg on 10/10, then 2 mg on 10/11, then 1 mg on 10/12 nicotine (polacrilex) 2 mg gum 2 mg buccal Q2H PRN (Reason: nicotine cravings) Qty: 100 0RF Continued losartan-hydrochlorothiazide 100-25 mg tablet 1 tab PO DAILY pravastatin 80 mg tablet 1 tab PO BEDTIME fluticasone propionate [Flovent HFA] 110 mcg/actuation HFA aerosol inhaler 2 puff PO BID diclofenac sodium 75 mg tablet,delayed release (DR/EC) 1 tab PO BID Label Comments: Patient says its for twice a day but she really only takes it as needed cyanocobalamin (vitamin B-12) 50 mcg Tablet 50 mcg PO DAILY albuterol sulfate 90 mcg/actuation HFA aerosol inhaler 2 puff inhalation QID anastrozole 1 mg tablet 1 mg PO DAILY lorazepam 1 mg tablet 1 mg PO DAILY PRN (Reason: Anxiety) Discharge Orders: Discharge Order (Routine); Ordered 10/08/21 Ordered By: Maria Sr Diet: advance to usual diet Activity on Discharge: As tolerated Stand Alone Forms: Patient Portal Discharge page Care Plan Goals: recovery from tonsillitis, prevention of future tonsillitis, smoking cessation Health Concerns: peritonsillar cellulitis, tobacco abuse Plan of Treatment: take amoxicillin/clavulanate 875/125 mg twice daily for 7 days take dexamethasone as follows: 4 mg on 10/09, 3 mg on 10/10, 2 mg on 10/11, then 1 mg on 10/12 follow up with Primary Care and ENT in 1 week; consider tonsillectomy stop smoking; use nicotine gum to quit Assessment: See Discharge Summary Patient Instructions: Peritonsillar Abscess (ED)
--- NOTE | 2021-10-08 11:35 | MHC.CM.PN ---
Female 66 DX Peritonsillar cellulitis. She is discharge to home today. No services have been ordered. Patient arranged for transportation.
== END 2021-10-08 10:50 | disposition home or self-care (01) | DRG 113 ==
LOC: HO.ED 05:00 → HO.EDOVER 05:28 → HO.IMC 23:30
PROVIDERS: Internal Medicine; Admitting Provider Hospitalist; Emergency Provider Emergency Medicine Emergency Medical Services; PCP Internal Medicine; Responsible Provider Family Medicine; Visit Provider Family Medicine
DX: J36 Peritonsillar abscess (principal); C50.912 Malignant neoplasm of unspecified site of left female breast; E78.5 Hyperlipidemia, unspecified; F41.9 Anxiety disorder, unspecified; Z20.822 Contact with and (suspected) exposure to COVID-19; Z79.51 Long term (current) use of inhaled steroids; Z79.811 Long term (current) use of aromatase inhibitors; Z79.899 Other long term (current) drug therapy
CPT/HCPCS: 36415; 70491; 80048; 80053; 85025; 85027; 86140; 87635; 87651; 94640; 94664; 96365; 96367; 96375; 99219; 99285; J0295; J0696; J1100; J1650; J1885; J2543; J8540; Q9967

== ENCOUNTER 2021-11-25 15:10 | Outpatient (REF) | payer OTHER, SELFPAY ==
[2021-11-25 15:28] LABS: MANUAL DIFF FLAG NO
[2021-11-25 15:29] LABS: Basophils Absolute Auto 0.1 X10*3/uL (0.0-0.2); Basophils Percent Auto 0.7 % (0-2); Eosinophils Absolute Auto 0.2 X10*3/uL (0.0-0.4); Eosinophils Percent Auto 2.9 % (0-4); Hematocrit 39.6 % (37.0-47.0); Hemoglobin 12.7 g/dl (12.0-16.0); Imm Gran Abs Auto 0.04 X10*3/uL (0.00-0.03); Imm Gran Pct Auto 0.5 % (0.0-0.4); Lymphocytes Absolute Auto 1.7 X10*3/uL (1.2-4.9); Lymphocytes Percent Auto 20.5 % (20-40); Mean Corpuscular HGB Conc 32.1 g/dl (31.0-35.0); Mean Corpuscular Hemoglobin 32.4 pg (27.0-33.0); Mean Platelet Volume 9.8 fL (9.4-12.3); Monocytes Absolute Auto 0.7 X10*3/uL (0.1-1.2); Monocytes Percent Auto 8.7 % (2-11); Neutrophils Absolute Auto 5.5 x10*3/uL (2.0-8.3); Neutrophils Percent Auto 66.7 % (45-73); Platelet Count 377 X10*3/uL (160-400); Red Blood Count 3.92 X10*6/uL (4.20-5.50); Red Cell Distribution Width 13.9 % (11.0-16.0); White Blood Count 8.2 X10*3/uL (4.8-10.8)
== END 2021-11-25 15:11 | disposition home or self-care (01) ==
LOC: HO.BBR 15:10
PROVIDERS: Visit Provider Internal Medicine Medical Oncology
DX: D75.1 Secondary polycythemia (principal)
CPT/HCPCS: 36415; 85014; 85018; 85025; 99195

== ENCOUNTER 2022-03-04 09:03 | Outpatient (REF) | payer MEDICARE, SELFPAY ==
[2022-03-04 09:46] LABS: MANUAL DIFF FLAG NO
[2022-03-04 09:49] LABS: Basophils Absolute Auto 0.1 X10*3/uL (0.0-0.2); Basophils Percent Auto 0.6 % (0-2); Eosinophils Absolute Auto 0.2 X10*3/uL (0.0-0.4); Eosinophils Percent Auto 2.2 % (0-4); Hematocrit 41.4 % (37.0-47.0); Hemoglobin 13.4 g/dl (12.0-16.0); Imm Gran Abs Auto 0.03 X10*3/uL (0.00-0.03); Imm Gran Pct Auto 0.4 % (0.0-0.4); Lymphocytes Absolute Auto 1.7 X10*3/uL (1.2-4.9); Lymphocytes Percent Auto 20.5 % (20-40); Mean Corpuscular HGB Conc 32.4 g/dl (31.0-35.0); Mean Corpuscular Hemoglobin 31.9 pg (27.0-33.0); Mean Corpuscular Volume 98.6 fL (80.0-98.0); Mean Platelet Volume 9.7 fL (9.4-12.3); Monocytes Absolute Auto 0.7 X10*3/uL (0.1-1.2); Monocytes Percent Auto 8.6 % (2-11); Neutrophils Absolute Auto 5.5 x10*3/uL (2.0-8.3); Neutrophils Percent Auto 67.7 % (45-73); Platelet Count 333 X10*3/uL (160-400); Red Cell Distribution Width 13.7 % (11.0-16.0); White Blood Count 8.1 X10*3/uL (4.8-10.8)
[2022-03-04 10:40] LABS: Alanine Aminotransferase 17 U/L (0-31); Alkaline Phosphatase 72 U/L (39-117); Anion Gap 17 (12-20); Aspartate Amino Transferase 16 U/L (5-31); Bilirubin Total 0.4 mg/dL (0.0-1.0); Blood Urea Nitrogen 20 mg/dL (9-16); Calcium 9.1 mg/dL (8.4-10.2); Carbon Dioxide 25 mmol/L (22-29); Chloride 102 mmol/L (96-108); Estimated Glomerular Filt Rate > 60; Glucose Random 97 mg/dL (60-115); Potassium 4.6 mmol/L (3.3-5.1); Sodium 139 mmol/L (135-145); Total Protein 7.1 g/dL (6.5-8.0)
== END 2022-03-04 09:04 | disposition home or self-care (01) ==
LOC: HO.BBR 09:03
PROVIDERS: Visit Provider Internal Medicine Medical Oncology
DX: C50.412 Malignant neoplasm of upper-outer quadrant of left female breast (principal); D75.1 Secondary polycythemia
CPT/HCPCS: 36415; 80053; 85018; 85025; 99195

== ENCOUNTER 2022-04-25 14:59 | Outpatient (REF) | payer MEDICARE, SELFPAY ==
--- NOTE | ~2022-04-25 | MM_ITS ---
EXAMINATION: MM SCREENING DIGITAL BREAST TOMOSYNTHESIS, BILATERAL CLINICAL INFORMATION: Screening. Asymptomatic. Status post right breast lumpectomy. COMPARISON: Mammography: October 10, 2020 and studies dating back to January 26, 2016 TECHNIQUE: Digital breast tomosynthesis is performed in both the craniocaudal and mediolateral oblique views along with computer-aided detection (CAD). Synthesized 2D images are generated from the tomosynthesis. FINDINGS: There are scattered areas of fibroglandular density (ACR BI-RADS breast composition Category b). There are no new significant masses, abnormal calcifications, or other abnormalities. Status post left breast therapy changes again seen. MM/MM tomosynthesis screening BI IMPRESSION: No significant changes from prior exam. ASSESSMENT: BI-RADS 2: Benign RECOMMENDATION: Routine annual mammography screening. This patient's information was entered into a reminder system with a target due date for their next mammogram.
== END 2022-04-25 15:00 | disposition home or self-care (01) ==
LOC: HO.MAMMO 14:59
PROVIDERS: PCP Internal Medicine; Visit Provider Internal Medicine
DX: Z12.31 Encounter for screening mammogram for malignant neoplasm of breast (principal)
CPT/HCPCS: 77063; 77067

== ENCOUNTER 2022-05-04 14:49 | Outpatient (REF) | payer MEDICARE, SELFPAY ==
[2022-05-04 15:04] LABS: MANUAL DIFF FLAG NO
[2022-05-04 15:06] LABS: Basophils Absolute Auto 0.1 X10*3/uL (0.0-0.2); Basophils Percent Auto 0.5 % (0-2); Eosinophils Absolute Auto 0.2 X10*3/uL (0.0-0.4); Eosinophils Percent Auto 2.3 % (0-4); Hematocrit 41.9 % (37.0-47.0); Hemoglobin 13.4 g/dl (12.0-16.0); Imm Gran Abs Auto 0.03 X10*3/uL (0.00-0.03); Imm Gran Pct Auto 0.3 % (0.0-0.4); Lymphocytes Absolute Auto 1.9 X10*3/uL (1.2-4.9); Lymphocytes Percent Auto 19.1 % (20-40); Mean Corpuscular Hemoglobin 31.7 pg (27.0-33.0); Mean Corpuscular Volume 99.1 fL (80.0-98.0); Mean Platelet Volume 9.5 fL (9.4-12.3); Monocytes Absolute Auto 0.7 X10*3/uL (0.1-1.2); Monocytes Percent Auto 7.2 % (2-11); Neutrophils Absolute Auto 6.9 x10*3/uL (2.0-8.3); Neutrophils Percent Auto 70.6 % (45-73); Platelet Count 370 X10*3/uL (160-400); Red Blood Count 4.23 X10*6/uL (4.20-5.50); Red Cell Distribution Width 13.7 % (11.0-16.0); White Blood Count 9.8 X10*3/uL (4.8-10.8)
== END 2022-05-04 14:50 | disposition home or self-care (01) ==
LOC: HO.BBR 14:49
PROVIDERS: PCP Internal Medicine; Visit Provider Internal Medicine Medical Oncology
DX: D75.1 Secondary polycythemia (principal)
CPT/HCPCS: 36415; 85014; 85018; 85025; 99195

== ENCOUNTER 2022-06-29 14:13 | Outpatient (REF) | payer MEDICARE, SELFPAY ==
[2022-06-29 14:30] LABS: MANUAL DIFF FLAG NO
[2022-06-29 14:33] LABS: Basophils Percent Auto 0.4 % (0-2); Eosinophils Absolute Auto 0.2 X10*3/uL (0.0-0.4); Eosinophils Percent Auto 1.6 % (0-4); Hematocrit 41.1 % (37.0-47.0); Hemoglobin 13.2 g/dl (12.0-16.0); Imm Gran Abs Auto 0.04 X10*3/uL (0.00-0.03); Imm Gran Pct Auto 0.4 % (0.0-0.4); Lymphocytes Absolute Auto 1.9 X10*3/uL (1.2-4.9); Lymphocytes Percent Auto 17.3 % (20-40); Mean Corpuscular HGB Conc 32.1 g/dl (31.0-35.0); Mean Corpuscular Hemoglobin 31.8 pg (27.0-33.0); Mean Platelet Volume 9.4 fL (9.4-12.3); Monocytes Absolute Auto 0.9 X10*3/uL (0.1-1.2); Neutrophils Absolute Auto 7.9 x10*3/uL (2.0-8.3); Neutrophils Percent Auto 72.3 % (45-73); Platelet Count 369 X10*3/uL (160-400); Red Blood Count 4.15 X10*6/uL (4.20-5.50); Red Cell Distribution Width 13.9 % (11.0-16.0); White Blood Count 10.9 X10*3/uL (4.8-10.8)
== END 2022-06-29 14:14 | disposition home or self-care (01) ==
LOC: HO.BBR 14:13
PROVIDERS: Visit Provider Internal Medicine Medical Oncology
DX: D75.1 Secondary polycythemia (principal)
CPT/HCPCS: 36415; 85025

== ENCOUNTER 2022-09-16 11:46 | Outpatient (REF) | payer MEDICARE, SELFPAY ==
[2022-09-16 11:55] LABS: MANUAL DIFF FLAG NO
[2022-09-16 12:01] LABS: Basophils Absolute Auto 0.1 X10*3/uL (0.0-0.2); Basophils Percent Auto 0.4 % (0-2); Eosinophils Absolute Auto 0.1 X10*3/uL (0.0-0.4); Eosinophils Percent Auto 1.2 % (0-4); Hematocrit 45.2 % (37.0-47.0); Hemoglobin 14.6 g/dl (12.0-16.0); Imm Gran Abs Auto 0.03 X10*3/uL (0.00-0.03); Imm Gran Pct Auto 0.3 % (0.0-0.4); Lymphocytes Absolute Auto 1.6 X10*3/uL (1.2-4.9); Mean Corpuscular HGB Conc 32.3 g/dl (31.0-35.0); Mean Corpuscular Hemoglobin 32.4 pg (27.0-33.0); Mean Corpuscular Volume 100.4 fL (80.0-98.0); Mean Platelet Volume 9.7 fL (9.4-12.3); Neutrophils Absolute Auto 8.4 x10*3/uL (2.0-8.3); Neutrophils Percent Auto 75.1 % (45-73); Platelet Count 343 X10*3/uL (160-400); Red Cell Distribution Width 14.9 % (11.0-16.0); White Blood Count 11.2 X10*3/uL (4.8-10.8)
== END 2022-09-16 11:47 | disposition home or self-care (01) ==
LOC: HO.BBR 11:46
PROVIDERS: PCP Internal Medicine; Visit Provider Internal Medicine Medical Oncology
DX: D75.1 Secondary polycythemia (principal)
CPT/HCPCS: 36415; 85014; 85018; 85025; 99195

== ENCOUNTER 2022-09-19 15:35 | Inpatient (IN) | payer MEDICARE, SELFPAY ==
--- NOTE | ~2022-09-19 | CT_ITS ---
EXAMINATION: CT ABDOMEN AND PELVIS WITHOUT CONTRAST CLINICAL INFORMATION: Pain rule out bowel obstruction COMPARISON: None available. TECHNIQUE: Multidetector volumetric imaging was performed from the superior aspect of the liver through the pubic symphysis. Sagittal and coronal reformatted images were obtained on the technologist's workstation. This CT examination was performed using dose optimization techniques as appropriate, variously including the following: *Automated exposure control *Adjustment of mA and/or kV according to patient size (this includes techniques or standardized protocols for targeted exams where dose is matched to indication/reason for exam; i.e. extremities or head) *Use of iterative reconstruction technique DLP: 847 mGy-cm FINDINGS: LUNG BASES: The visualized lung bases are unremarkable. LIVER, GALLBLADDER, AND BILIARY TREE: The liver is normal in size, shape, and attenuation. Some benign cysts are present in the liver. No focal hepatic lesion or biliary ductal dilatation is present. The gallbladder is distended and contains a large calcified gallstone at the neck. There are pericholecystic inflammatory changes seen with some pericholecystic fluid. These findings are highly suggestive of acute cholecystitis. No drainable fluid collections are seen. PANCREAS: Unremarkable. SPLEEN: Unremarkable. ADRENAL GLANDS: Unremarkable. KIDNEYS AND URETERS: The kidneys are normal in size, shape, and attenuation. No hydronephrosis, hydroureter, or calculi seen. There is nonspecific bilateral perinephric stranding. BLADDER: Unremarkable. GASTROINTESTINAL TRACT: The small and large bowel are unremarkable. The appendix is unremarkable. ABDOMINAL WALL: No significant hernia is appreciated. LYMPH NODES: Normal. VASCULAR: Unremarkable. PELVIC VISCERA: The uterus and adnexa are unremarkable. OSSEOUS STRUCTURES: Degenerative changes are present in the spine most marked from L2 through L5. No bony destructive lesions. CT/CT abdomen pelvis wo IV con IMPRESSION: 1. Findings are consistent with acute cholecystitis as described above. 2. Incidental note made of benign hepatic cysts, degenerative changes in the spine and nonspecific bilateral perinephric stranding. Fleischner guidelines were followed.
[2022-09-19 17:57] VITALS: BP 143/61; PULSE 73; RESP 18; TEMP 36.1; O2SAT 97; BMI 38.8
--- NOTE | 2022-09-19 17:58 | ED.ABDPAIN ---
HPI - Abdominal Pain General Chief Complaint: Abdominal Pain Stated Complaint: abd pain Time Seen by Provider: 09/20/22 01:07 Related Data Home Medications Medication Instructions Recorded Confirmed lorazepam 1 mg tablet 1 mg PO DAILY PRN Anxiety 03/24/20 09/20/22 losartan 100 1 tab PO DAILY 10/06/21 09/20/22 mg-hydrochlorothiazide 25 mg tablet pravastatin 80 mg tablet 1 tab PO DAILY 10/06/21 09/20/22 cholecalciferol (vitamin D3) 50 50 mcg PO DAILY 09/20/22 09/20/22 mcg (2,000 unit) tablet Allergies Allergy/AdvReac Type Severity Reaction Status Date / Time gluten [Gluten] Allergy Unknown Unknown Verified 09/20/22 09:02 environmental allergies Allergy Unknown Verified 09/20/22 09:02 egg [Egg] AdvReac Mild Nausea Verified 09/20/22 09:02 PMF Past Medical History Medical History History of left breast cancer Hypercholesterolemia Hypertension Surgical History History of lumpectomy of left breast History of lymph node excision Social History Social History Household Members: Significant Other Housing: House Do you presently have visiting nurse or other home services: No Alcohol intake: current Alcohol intake frequency: other Patient Tobacco Use Status: Current everyday Tobacco user Tobacco use type: Cigarette Cigarette Packs Per Day: 0.5 Cigarettes Per Day: 10.0 Second Hand Smoke Exposure: No service: No Current occupational status: employed Physical Exam ED Vital Signs: Vital Signs - 24 hr 09/19/22 17:57 09/19/22 21:25 09/20/22 00:24 Temperature 97.0 F 98.0 F 98.7 F Pulse Rate 73 84 77 Respiratory Rate 18 18 18 Blood Pressure 143/61 H 141/66 H 139/59 L Pulse Oximetry 97 98 97 Oxygen Delivery Method Room Air Room Air Room Air 09/20/22 00:25 Temperature Pulse Rate 77 Respiratory Rate 19 Blood Pressure 139/59 L Pulse Oximetry 94 Oxygen Delivery Method Room Air BMI result Body Mass Index 38.8 Course Course Course Narrative: Patient complains of abdominal pain mostly mid and upper which started in the middle of night last night and has not abated, nausea without vomiting, no other accompanying symptom, no vomiting no diarrhea no blood in the stool no dysuria Exam there is upper mid abdominal tenderness, no rebound no guarding Medical Decision Making Lab Data 09/19/22 21:28 09/19/22 21:28 Labs: Lab Results 09/19/22 09/19/22 09/19/22 Range/Units 21:28 21:28 21:28 WBC 15.1 H (4.8-10.8) X10*3/uL RBC 4.43 (4.20-5.50) X10*6/uL Hgb 14.3 (12.0-16.0) g/dl Hct 43.6 (37.0-47.0) % MCV 98.4 H (80.0-98.0) fL MCH 32.3 (27.0-33.0) pg MCHC 32.8 (31.0-35.0) g/dl RDW 15.0 (11.0-16.0) % Plt Count 356 (160-400) X10*3/uL MPV 9.6 (9.4-12.3) fL Immature Gran % (Auto) 0.3 (0.0-0.4) % Neut % (Auto) 82.1 H (45-73) % Lymph % (Auto) 8.4 L (20-40) % [place] % (Auto) 7.8 (2-11) % Eos % (Auto) 1.1 (0-4) % Baso % (Auto) 0.3 (0-2) % Lymph # (Auto) 1.3 (1.2-4.9) X10*3/uL [place] # (Auto) 1.2 (0.1-1.2) X10*3/uL Eos # (Auto) 0.2 (0.0-0.4) X10*3/uL Baso # (Auto) 0.0 (0.0-0.2) X10*3/uL Abs Immat Gran (auto) 0.05 H (0.00-0.03) X10*3/uL Absolute Neuts (auto) 12.4 H (2.0-8.3) x10*3/uL Absolute Nucleated RBC 0.000 (0.0-0.012) X10*3/uL Nucleated RBC % (auto) 0.0 (0.0-0.2) /100WBC Sodium 138 (135-145) mmol/L Potassium 4.4 (3.3-5.1) mmol/L Chloride 103 (96-108) mmol/L Carbon Dioxide 25 (22-29) mmol/L Anion Gap 14 (12-20) BUN 14 (9-16) mg/dL Creatinine 0.84 (0.5-1.4) mg/dL Estim Creat Clear Calc 79.5 Estimated GFR > 60 Random Glucose 112 (60-115) mg/dL Calcium 10.0 D (8.4-10.2) mg/dL Total Bilirubin 1.2 H (0.0-1.0) mg/dL Direct Bilirubin 0.4 (0.0-0.5) mg/dL AST 22 (5-31) U/L ALT 18 (0-31) U/L Alkaline Phosphatase 83 (39-117) U/L Total Protein 7.5 (6.5-8.0) g/dL Albumin 4.1 (3.5-5.0) g/dL Lipase 16 (8-78) U/L Urine Color Yellow Urine Appearance Cloudy Urine pH 8.5 (5.0-9.0) Ur Specific [place] 1.015 (1.005-1.025) Urine Protein Negative (Neg-Trace) mg/dL Urine Glucose (UA) Negative (Negative) mg/dL Urine Ketones Trace (Negative) mg/dL Urine Blood Negative (Negative) Urine Nitrite Negative (Negative) Ur Leukocyte Esterase Trace H (Negative) Urine RBC 0-2 (0-2) /HPF Urine WBC 0-5 (0-5) /HPF Ur Squamous Epith Cells >20 (0-2) /HPF Urine Bacteria 3+ (None Seen) Hyaline Casts 0-2 (0-2) /LPF Medications Administered Generic Name Dose Route Start Last Admin Trade Name Freq PRN Reason Stop Dose Admin Acetaminophen 1,000 mg in 100 mls @ 400 mls/hr 09/20/22 02:00 09/20/22 08:20 Ofirmev IV 09/20/22 20:14 Infused Q6H SLIM Infusion Dextrose/Lactated Ringer's 1,000 mls @ 125 mls/hr 09/20/22 02:00 09/20/22 04:57 D5lr IVCONT 125 mls/hr .Q8H SLIM Administration Piperacillin Sod/Tazobactam 50 mls @ 100 mls/hr 09/20/22 02:00 09/20/22 10:04 Sod 3.375 gm/ Sodium Chloride IV Infused Q6H SLIM Infusion Discontinued Medications Generic Name Dose Route Start Last Admin Trade Name Freq PRN Reason Stop Dose Admin Hydromorphone HCl 0.5 mg 09/20/22 01:47 09/20/22 02:08 Hydromorphone Hcl 0.5 Mg/0.5 Ml Syringe IVPUSH 09/20/22 01:48 0.5 mg ONCE ONE Administration Protocol Sodium Chloride 1,000 mls @ 999 mls/hr 09/20/22 02:00 09/20/22 03:29 Ns IV 09/20/22 03:00 Infused .Q1H1M SLIM Infusion Ceftriaxone Sodium 2 gm/ 50 mls @ 100 mls/hr 09/20/22 01:47 09/20/22 02:40 Sodium Chloride IV 09/20/22 02:16 Infused ONCE ONE Infusion Metronidazole 500 mg in 100 mls @ 100 mls/hr 09/20/22 01:47 09/20/22 03:09 Flagyl IV 09/20/22 02:46 Infused ONCE ONE Infusion Ondansetron HCl 4 mg 09/20/22 01:46 09/20/22 02:09 Ondansetron Hcl 4 Mg/2 Ml Vial IVPUSH 09/20/22 01:47 4 mg ONCE ONE Administration Discharge Plan Discharge Clinical Impression: Acute cholecystitis due to biliary calculus Patient Disposition: Admitted As Inpatient Interventions: Admission Worksheet (ED) Last Done: 09/20/22 10:05 Discharge Date/Time: 09/20/22 10:06
[2022-09-19 21:25] VITALS: BP 141/66; PULSE 84; RESP 18; TEMP 36.7; O2SAT 98
--- NOTE | 2022-09-19 21:31 | MHC.EDTECH ---
PATIENT BLOOD DRAWN AND URINE SAMPLE COLLECTED AND SENT TO LAB ,
[2022-09-19 21:32] LABS: MANUAL DIFF FLAG NO
--- OUTSIDE RECORDS SUMMARY | 2022-09-19 21:32 | XMS_ITS ---
Author Name Rajinder Guerrero Address [address] [place] [address] Organization Rajinder Guerrero III, MD Address [address] [place] [address] Care Team Providers Care Register Of Deeds Name Role Phone Rajinder Guerrero [facility] [phone] PROBLEMS Type Condition ICD9-CM Code QQS87-II Code Onset Dates Condition Status SNOMED Code Problem Celiac disease K90.0 Active 175723639 Problem Iron deficiency E61.1 Active 08614243 Problem Lobular carcinoma of left breast, stage 1 C50.912 Active 007642183 Problem Malignant neoplasm of upper-outer quadrant of left female breast, 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 Active 363441719 Problem Erythrocytosis D75.1 Active 901880904 Problem Tobacco dependence F17.200 Active 33581 005 Problem Obesity E66.9 Active 981996414 Problem Raynaud's syndrome without gangrene I73.00 Active 356924363 Problem Post-menopausal Z78.0 Active 94523325 ALLERGIES No Known Allergies ENCOUNTERS Encounter Location Date Diagnosis Rajinder Guerrero III, MD [address] [place] [address] [place] [address] Jul, Iron deficiency E61.1 ; Obesity E66.9 ; Tobacco dependence F17.200 ; Malignant neoplasm of upper-outer quadrant of left female breast, 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 ; Lobular carcinoma of left breast, stage 1 C50.912 and Erythrocytosis D75.1 Rajinder Guerrero III, MD [address] [place] [address] [place] [address] Mar, Iron deficiency E61.1 ; Malignant neoplasm of upper-outer quadrant of left female breast, 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 ; Celiac disease K90.0 ; Obesity E66.9 ; Tobacco dependence F17.200 ; Raynaud's syndrome without gangrene I73.00 ; Lobular carcinoma of left breast, stage 1 C50.912 and Erythrocytosis D75.1 Rajinder Guerrero III, MD [address] [place] [address] [place] [address] Oct, Malignant neoplasm of upper-outer quadrant of left female breast, 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 ; Iron deficiency E61.1 ; Celiac disease K90.0 ; Obesity E66.9 ; Tobacco dependence F17.200 ; Erythrocytosis D75.1 and Tonsillar abscess J36 Rajinder Guerrero III, MD [address] [place] [address] [place] [address] Oct, Malignant neoplasm of upper-outer quadrant of left female breast, 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 ; Obesity E66.9 ; Tobacco dependence F17.200 ; Erythrocytosis D75.1 and Peritonsillar abscess J36 Rajinder Guerrero III, MD [address] [place] [address] [place] [address] Sep, Malignant neoplasm of upper-outer quadrant of left female breast, 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 ; Obesity E66.9 ; Celiac disease K90.0 ; Tobacco dependence F17.200 ; Lobular carcinoma of left breast, stage 1 C50.912 and Erythrocytosis D75.1 Rajinder Guerrero III, MD [address] [place] [address] [place] [address] Jun, Malignant neoplasm of upper-outer quadrant of left female breast, 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 ; Iron deficiency E61.1 and Obesity E66.9 Rajinder Guerrero III, MD [address] [place] [address] [place] [address] Mar, Rajinder Guerrero III, MD [address] [place] [address] [place] [address] 15 Dec, 2020 Malignant neoplasm of upper-outer quadrant of left female breast, 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 ; Obesity E66.9 ; Iron deficiency E61.1 ; Tobacco dependence F17.200 ; Celiac disease K90.0 ; Lobular carcinoma of left breast, stage 1 C50.912 and Erythrocytosis D75.1 Rajinder Guerrero III, MD [address] [place] [address] [place] [address] Jun, Malignant neoplasm of upper-outer quadrant of left female breast, 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 ; Obesity E66.9 ; Tobacco dependence F17.200 ; Raynaud's syndrome without gangrene I73.00 and Erythrocytosis D75.1 Rajinder Guerrero III, MD [address] [place] [address] [place] [address] Dec, Lobular carcinoma of left breast, stage 1 C50.912 ; Tobacco dependence F17.200 ; Obesity E66.9 and Erythrocytosis D75.1 Rajinder Guerrero III, MD [address] [place] [address] [place] [address] Dec, Rajinder Guerrero III, MD [address] [place] [address] [place] [address] Oct, Lobular carcinoma of left breast, stage 1 C50.912 ; Iron deficiency E61.1 ; Obesity E66.9 ; Tobacco dependence F17.200 ; Raynaud's syndrome without gangrene I73.00 and Erythrocytosis D75.1 Rajinder Guerrero III, MD [address] [place] [address] [place] [address] August, Iron deficiency E61.1 ; Obesity E66.9 ; Tobacco dependence F17.200 ; Lobular carcinoma of left breast, stage 1 C50.912 and Erythrocytosis D75.1 Rajinder Guerrero III, MD [address] [place] [address] [place] [address] Apr, Malignant neoplasm of upper-outer quadrant of left female breast, 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 ; Obesity E66.9 ; Tobacco dependence F17.200 ; Post-menopausal Z78.0 ; Raynaud's syndrome without gangrene I73.00 and Polycythemia D75.1 Rajinder Guerrero III, MD [address] [place] [address] [place] [address] Oct, Lobular carcinoma of left breast, stage 1 C50.912 ; Polycythemia D75.1 ; Tobacco dependence F17.200 and Obesity E66.9 Rajinder Guerrero III, MD [address] [place] [address] [place] [address] Jul, Malignant neoplasm of upper-outer quadrant of left female breast, 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 ; Obesity E66.9 ; Tobacco dependence F17.200 and Polycythemia D75.1 Rajinder Guerrero III, MD [address] [place] [address] [place] [address] Apr, Malignant neoplasm of upper-outer quadrant of left female breast, 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 ; Obesity E66.9 ; Tobacco dependence F17.200 and Polycythemia D75.1 Rajinder Guerrero III, MD [address] [place] [address] [place] [address] Jan, Malignant neoplasm of upper-outer quadrant of left female breast, 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 ; Tobacco dependence F17.200 ; Obesity E66.9 ; Iron deficiency E61.1 and Polycythemia D75.1 Rajinder Guerrero III, MD [address] [place] [address] [place] [address] Nov, Rajinder Guerrero III, MD [address] [place] [address] [place] [address] Nov, Obesity E66.9 ; Tobacco dependence F17.200 ; Polycythemia D75.1 and Lobular carcinoma of left breast, stage 1 C50.912 Rajinder Guerrero III, MD [address] [place] [address] [place] [address] Oct, Rajinder Guerrero III, MD [address] [place] [address] [place] [address] Oct, Rajinder Guerrero III, MD [address] [place] [address] [place] [address] Sep, Malignant neoplasm of upper-outer quadrant of left female breast, 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 ; Celiac disease K90.0 ; Obesity E66.9 ; Tobacco dependence F17.200 and Polycythemia D75.1 Rajinder Guerrero III, MD [address] [place] [address] [place] [address] August, Rajinder Guerrero III, MD [address] [place] [address] August, Polycythemia D75.1 ; Malignant neoplasm of upper-outer quadrant of left female breast, 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 ; Obesity E66.9 ; Celiac disease K90.0 ; Tobacco dependence F17.200 ; Raynaud's syndrome without gangrene I73.00 and Post-menopausal Z78.0 Rajinder Guerrero III, MD [address] [place] [address] August, Rajinder Guerrero III, MD [address] [place] [address] [place] [address] Jul, Malignant neoplasm of upper-outer quadrant of left female breast, 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 ; Post-menopausal Z78.0 ; Polycythemia D75.1 ; Obesity E66.9 and Tobacco dependence F17.200 Rajinder Guerrero III, MD [address] [place] [address] [place] [address] Jul, Rajinder Guerrero III, MD [address] [place] [address] [address] [place] [address] May, Polycythemia vera D45 ; Encounter for screening breast examination Z12.31 ; Tobacco dependence F17.200 and Raynaud's syndrome without gangrene I73.00 Rajinder Guerrero III, MD [address] [place] [address] [place] [address] Oct, Polycythemia vera D45 ; Raynaud's syndrome without gangrene I73.00 ; Tobacco dependence F17.200 and Obesity E66.9 Rajinder Guerrero III, MD [address] [place] [address] [place] [address] Oct, Raynaud's syndrome without gangrene I73.00 ; Polycythemia vera D45 ; Iron deficiency E61.1 ; Celiac disease K90.0 ; Obesity E66.9 and Tobacco dependence F17.200 Rajinder Guerrero III, MD [address] [place] [address] [place] [address] Jun, Polycythemia vera D45 ; Obesity E66.9 and Tobacco dependence F17.200 Rajinder Guerrero III, MD [address] [place] [address] Mar, Polycythemia vera D45 ; Tobacco dependence F17.200 and Obesity E66.9 Rajinder Guerrero III, MD [address] [place] [address] Dec, Polycythemia vera D45 ; Obesity E66.9 and Tobacco dependence F17.200 Rajinder Guerrero III, MD [address] [place] [address] Dec, Polycythemia vera D45 Rajinder Guerrero III, MD [address] [place] [address] Dec, Rajinder Guerrero III, MD [address] [place] [address] Sep, Rajinder Guerrero III, MD [address] [place] [address] [place] [address] Sep, Polycythemia vera D45 ; Obesity E66.9 and Tobacco dependence F17.200 Rajinder Guerrero III, MD [address] [place] [address] Sep, Rajinder Guerrero III, MD [address] [place] [address] [place] [address] Sep, Rajinder Guerrero III, MD [address] [place] [address] [place] [address] Jul, Polycythemia vera D45 ; Iron deficiency E61.1 ; Tobacco dependence F17.200 and Obesity E66.9 Rajinder Guerrero III, MD [address] [place] [address] [place] [address] May, Polycythemia vera D45 ; Tobacco dependence F17.200 and Obesity E66.9 Rajinder Guerrero III, MD [address] [place] [address] [place] [address] Feb, Polycythemia vera D45 ; Iron deficiency E61.1 ; Obesity E66.9 and Tobacco dependence F17.200 Rajinder Guerrero III, MD [address] [place] [address] [place] [address] Feb, Polycythemia vera D45 and Iron deficiency E61.1 Rajinder Guerrero III, MD [address] [place] [address] [place] [address] Feb, Rajinder Guerrero III, MD [address] [place] [address] [place] [address] Nov, Polycythemia 238.4 ; Iron deficiency 280.9 ; Overweight 278.02 and Tobacco dependence 305.1 Rajinder Guerrero III, MD [address] [place] [address] Nov, Polycythemia 238.4 Rajinder Guerrero III, MD [address] [place] [address] [place] [address] Oct, Rajinder Guerrero III, MD [address] [place] [address] [place] [address] August, Rajinder Guerrero III, MD [address] [place] [address] [place] [address] August, Polycythemia 238.4 ; Overweight 278.02 and Tobacco dependence 305.1 Rajinder Guerrero III, MD [address] [place] [address] [place] [address] May, Polycythemia 238.4 ; Overweight 278.02 and Tobacco dependence 305.1 Rajinder Guerrero III, MD [address] [place] [address] [place] [address] Feb, Polycythemia 238.4 ; Cervical radiculopathy 723.4 ; Iron deficiency 280.9 ; Obesity (BMI 30.0-34.9) 278.00 and Tobacco dependence 305.1 Rajinder Guerrero III, MD [address] [place] [address] [place] [address] Feb, Headache 784.0 ; Obesity (BMI 30.0-34.9) 278.00 and Tobacco dependence 305.1 Rajinder Guerrero III, MD [address] [place] [address] Nov, Polycythemia 238.4 Rajinder Guerrero III, MD [address] [place] [address] [place] [address] Jul, Rajinder Guerrero III, MD [address] [place] [address] [place] [address] Jun, Polycythemia 238.4 ; Iron deficiency 280.9 ; Celiac disease 579.0 ; Obesity (BMI 30.0-34.9) 278.00 and Tobacco dependence 305.1 Rajinder Guerrero III, MD [address] [place] [address] [place] [address] Mar, Polycythemia 238.4 ; Iron deficiency 280.9 ; Celiac disease 579.0 and Overweight 278.02 Rajinder Guerrero III, MD [address] [place] [address] [place] [address] Jan, Rajinder Guerrero III, MD [address] [place] [address] [place] [address] Nov, Rajinder Guerrero III, MD [address] [place] [address] [place] [address] Nov, Polycythemia 238.4 Rajinder Guerrero III, MD [address] [place] [address] [place] [address] Nov, Rajinder Guerrero III, MD [address] [place] [address] [place] [address] Nov, Rajinder Guerrero III, MD [address] [place] [address] [place] [address] Oct, Rajinder Guerrero III, MD [address] [place] [address] [place] [address] Oct, Polycythemia 238.4 ; Iron deficiency 280.9 ; Celiac disease 579.0 ; Hepatic cyst 573.8 ; Abdominal pain 789.00 and Pelvic pain in female 625.9 Rajinder Guerrero III, MD [address] [place] [address] [place] [address] Oct, Rajinder Guerrero III, MD [address] [place] [address] [place] [address] Jul, Polycythemia 238.4 ; Iron deficiency 280.9 and Celiac disease 579.0 Rajinder Guerrero III, MD [address] [place] [address] [place] [address] Jul, Rajinder Guerrero III, MD [address] [place] [address] [place] [address] Jun, Rajinder Guerrero III, MD [address] [place] [address] [place] [address] Oct, Rajinder Guerrero III, MD [address] [place] [address] [place] [address] Sep, Rajinder Guerrero III, MD [address] [place] [address] [place] [address] Jul, Polycythemia 238.4 Rajinder Guerrero III, MD [address] [place] [address] Jul, Rajinedr Guerrero III, MD [address] [place] [address] Jul, Rajinder Guerrero III, MD [address] [place] [address] Jun, Rajinder Guerrero III, MD [address] [place] [address] Jun, Rajinder Guerrero III, MD [address] [place] [address] [place] [address] Dec, IMMUNIZATIONS No Known Immunizations SOCIAL HISTORY Qualifiers Date Current Smoker REASON FOR REFERRAL FUNCTIONAL STATUS PLAN OF CARE Activity Details VITAL SIGNS Height 65 in 2022-07-20 Height 65 in 2022-03-21 Height 65 in 2021-10-19 Height 65 in 2021-10-13 Height 65 in 2021-06-30 Height 65 in 2020-12-30 Height 65 in 2020-06-22 Height 65 in 2020-01-15 Height 65 in 2019-11-13 Height 65 in 2019-04-29 Height 65 in 2018-11-09 Height 65 in 2018-08-07 Height 65 in 2018-05-08 Height 65 in 2018-01-31 Height 65 in 2017-11-17 Height 65 in 2017-09-15 Height 65 in 2017-08-30 Height 65 in 2017-08-14 Height 65 in 2017-06-14 Height 65 in 2016-11-09 Height 65 in 2016-11-04 Height 65 in 2016-07-06 Height 65 in 2016-03-30 Height 65 in 2015-12-25 Height 65 in 2015-10-14 Height 65 in 2015-07-22 Height 65 in 2015-05-20 Height 65 in 2015-03-11 Height 65 in 2014-12-01 Height 65 in 2014-09-02 Height 65 in 2014-06-10 Height 65 in 2014-03-10 Height 65 in 2014-03-07 Height 65 in 2013-11-20 Height 65 in 2013-07-15 Height 65 in 2013-04-15 Height N/A in 2012-11-06 Height N/A in 2012-08-08 Height N/A in 2011-08-15 Height 65 in 2011-06-20 Weight 238 lbs 2022-07-20 Weight 240 lbs 2022-03-21 Weight 230 lbs 2021-10-19 Weight 228 lbs 2021-10-13 Weight 232 lbs 2021-06-30 Weight 235 lbs 2020-12-30 Weight 237 lbs 2020-06-22 Weight 235 lbs 2020-01-15 Weight 233 lbs 2019-11-13 Weight 225 lbs 2019-04-29 Weight 223 lbs 2018-11-09 Weight 222 lbs 2018-08-07 Weight 222 lbs 2018-05-08 Weight 220 lbs 2018-01-31 Weight 215 lbs 2017-11-17 Weight 214 lbs 2017-09-15 Weight 215 lbs 2017-08-30 Weight 212 lbs 2017-08-14 Weight 209 lbs 2017-06-14 Weight 191 lbs 2016-11-09 Weight 199 lbs 2016-11-04 Weight 198 lbs 2016-07-06 Weight 203 lbs 2016-03-30 Weight 206 lbs 2015-12-25 Weight 213 lbs 2015-10-14 Weight 217 lbs 2015-07-22 Weight 213 lbs 2015-05-20 Weight 206 lbs 2015-03-11 Weight 209 lbs 2014-12-01 Weight 202 lbs 2014-09-02 Weight 205 lbs 2014-06-10 Weight 204 lbs 2014-03-10 Weight 203 lbs 2014-03-07 Weight 202 lbs 2013-11-20 Weight 195 lbs 2013-07-15 Weight 197 lbs 2013-04-15 Weight 194 lbs 2012-11-06 Weight 194 lbs 2012-08-08 BMI 39.60 kg/m2 2022-07-20 BMI 39.93 kg/m2 2022-03-21 BMI 38.27 kg/m2 2021-10-19 BMI 37.94 kg/m2 2021-10-13 BMI 38.60 kg/m2 2021-06-30 BMI 39.10 kg/m2 2020-12-30 BMI 39.43 kg/m2 2020-06-22 BMI 39.10 kg/m2 2020-01-15 BMI 38.77 kg/m2 2019-11-13 BMI 37.44 kg/m2 2019-04-29 BMI 37.11 kg/m2 2018-11-09 BMI 36.94 kg/m2 2018-08-07 BMI 36.94 kg/m2 2018-05-08 BMI 36.61 kg/m2 2018-01-31 BMI 35.77 kg/m2 2017-11-17 BMI 35.61 kg/m2 2017-09-15 BMI 35.77 kg/m2 2017-08-30 BMI 35.27 kg/m2 2017-08-14 BMI 34.78 kg/m2 2017-06-14 BMI 31.78 kg/m2 2016-11-09 BMI 33.11 kg/m2 2016-11-04 BMI 32.95 kg/m2 2016-07-06 BMI 33.78 kg/m2 2016-03-30 BMI 34.28 kg/m2 2015-12-25 BMI 35.44 kg/m2 2015-10-14 BMI 36.11 kg/m2 2015-07-22 BMI 35.44 kg/m2 2015-05-20 BMI 34.28 kg/m2 2015-03-11 BMI 34.78 kg/m2 2014-12-01 BMI 33.61 kg/m2 2014-09-02 BMI 34.11 kg/m2 2014-06-10 BMI 33.94 kg/m2 2014-03-10 BMI 33.78 kg/m2 2014-03-07 BMI 33.61 kg/m2 2013-11-20 BMI 32.45 kg/m2 2013-07-15 BMI 32.78 kg/m2 2013-04-15 BMI 32.28 kg/m2 2012-11-06 BMI 32.28 kg/m2 2012-08-08 Heart Rate 90 /min 2022-07-20 Heart Rate 86 /min 2022-03-21 Heart Rate 91 /min 2021-10-19 Heart Rate 83 /min 2021-10-13 Heart Rate 86 /min 2021-06-30 Heart Rate 91 /min 2020-12-30 Heart Rate 88 /min 2020-06-22 Heart Rate 87 /min 2020-01-15 Heart Rate 93 /min 2019-11-13 Heart Rate 94 /min 2019-04-29 Heart Rate 88 /min 2018-11-09 Heart Rate 87 /min 2018-08-07 Heart Rate 104 /min 2018-05-08 Heart Rate 66 /min 2018-01-31 Heart Rate 82 /min 2017-11-17 Heart Rate 77 /min 2017-09-15 Heart Rate 92 /min 2017-08-30 Heart Rate 76 /min 2017-08-14 Heart Rate 85 /min 2017-06-14 Heart Rate 83 /min 2016-11-09 Heart Rate 81 /min 2016-11-04 Heart Rate 70 /min 2016-07-06 Heart Rate 88 /min 2016-03-30 Heart Rate 92 /min 2015-12-25 Heart Rate 79 /min 2015-10-14 Heart Rate 77 /min 2015-07-22 Heart Rate 78 /min 2015-05-20 Heart Rate 84 /min 2015-03-11 Heart Rate 72 /min 2014-12-01 Heart Rate 78 /min 2014-09-02 Heart Rate 78 /min 2014-06-10 Heart Rate 79 /min 2014-03-10 Heart Rate 69 /min 2014-03-07 Heart Rate 73 /min 2013-11-20 Heart Rate 78 /min 2013-07-15 Heart Rate 68 /min 2013-04-15 Heart Rate 88 /min 2012-11-06 Heart Rate 88 /min 2012-08-08 Heart Rate 80 /min 2011-08-15 Temperature 97.1 degrees Fahrenheit Temperature 96.7 degrees Fahrenheit Temperature 96.9 degrees Fahrenheit Temperature 96.8 degrees Fahrenheit Temperature 96.7 degrees Fahrenheit Temperature 97.1 degrees Fahrenheit Temperature 96.9 degrees Fahrenheit Temperature 96.7 degrees Fahrenheit Temperature 92 degrees Fahrenheit 2017-11-17 Temperature 98.3 degrees Fahrenheit Blood pressure systolic 130 mm Hg Blood pressure diastolic 80 mm Hg 2022-07 MEDICATIONS Medication Instructions Dosage Frequency Start Date End Date Duration Status LORazepam 1 MG Orally once a day 1 tablet 24h Active Losartan Potassium 50 MG Orally Once a day 1 tablet 24h Active Pravastatin Sodium 40 MG Orally Once a day 1 tablet 24h Active PROCEDURES Procedure Date Ordered Result Body Site PHONE E/M BY PHYS 11-20 MIN August 27, 2019 PHONE E/M BY PHYS 11-20 MIN October 15, 2021 TRANS CARE MGMT 7 DAY DISCH October 13, 2021 RESULTS Name Result Date Reference Range Complete Blood Count Auto Diff 2022-09-16 White Blood Count 11.2 4.8-10.8 Red Blood Count 4.50 4.20-5.50 Hemoglobin 14.6 12.0-16.0 Hematocrit 45.2 37.0-47.0 Mean Corpuscular Volume 100.4 80.0 -98.0 Mean Corpuscular Hemoglobin 32.4 27.0-33.0 Mean Corpuscular HGB Conc 32.3 31 .0-35.0 Red Cell Distribution Width 14.9 11.0-16.0 Platelet Count 343 160-400 Mean Platelet Volume 9.7 9.4-12. 3 Neutrophils Percent Auto 75.1 45- 73 Imm Gran Pct Auto 0.3 0.0-0.4 Lymphocytes Percent Auto 14.0 20- 40 Monocytes Percent Auto 9.0 2-11 Eosinophils Percent Auto 1.2 0-4 Basophils Percent Auto 0.4 0-2 NRBC Pct Auto 0.0 0.0-0.2 Neutrophils Absolute Auto 8.4 2. 0-8.3 Imm Gran Abs Auto 0.03 0.00-0.03 Lymphocytes Absolute Auto 1.6 1. 2-4.9 Monocytes Absolute Auto 1.0 0.1- 1.2 Eosinophils Absolute Auto 0.1 0. 0-0.4 Basophils Absolute Auto 0.1 0.0- 0.2 NRBC Abs Auto 0.000 0.0-0.012 Therapeutic Phlebotomy 2022-09-16 THER/HGB TNP 12.0-16.0 THER/HCT TNP 37.0-47.0 Therapeutic Phlebotomy Phlebotomy Performed Complete Blood Count Auto Diff 2022-06-29 White Blood Count 10.9 4.8-10.8 Red Blood Count 4.15 4.20-5.50 Hemoglobin 13.2 12.0-16.0 Hematocrit 41.1 37.0-47.0 Mean Corpuscular Volume 99.0 80.0 -98.0 Mean Corpuscular Hemoglobin 31.8 27.0-33.0 Mean Corpuscular HGB Conc 32.1 31 .0-35.0 Red Cell Distribution Width 13.9 11.0-16.0 Platelet Count 369 160-400 Mean Platelet Volume 9.4 9.4-12. 3 Neutrophils Percent Auto 72.3 45- 73 Imm Gran Pct Auto 0.4 0.0-0.4 Lymphocytes Percent Auto 17.3 20- 40 Monocytes Percent Auto 8.0 2-11 Eosinophils Percent Auto 1.6 0-4 Basophils Percent Auto 0.4 0-2 NRBC Pct Auto 0.0 0.0-0.2 Neutrophils Absolute Auto 7.9 2. 0-8.3 Imm Gran Abs Auto 0.04 0.00-0.03 Lymphocytes Absolute Auto 1.9 1. 2-4.9 Monocytes Absolute Auto 0.9 0.1- 1.2 Eosinophils Absolute Auto 0.2 0. 0-0.4 Basophils Absolute Auto 0.0 0.0- 0.2 NRBC Abs Auto 0.000 0.0-0.012 Therapeutic Phlebotomy 2022-06-29 THER/HGB TNP 12.0-16.0 THER/HCT TNP 37.0-47.0 Therapeutic Phlebotomy TNP Complete Blood Count Auto Diff 2022-05-04 White Blood Count 9.8 4.8-10.8 Red Blood Count 4.23 4.20-5.50 Hemoglobin 13.4 12.0-16.0 Hematocrit 41.9 37.0-47.0 Mean Corpuscular Volume 99.1 80.0 -98.0 Mean Corpuscular Hemoglobin 31.7 27.0-33.0 Mean Corpuscular HGB Conc 32.0 31 .0-35.0 Red Cell Distribution Width 13.7 11.0-16.0 Platelet Count 370 160-400 Mean Platelet Volume 9.5 9.4-12. 3 Neutrophils Percent Auto 70.6 45- 73 Imm Gran Pct Auto 0.3 0.0-0.4 Lymphocytes Percent Auto 19.1 20- 40 Monocytes Percent Auto 7.2 2-11 Eosinophils Percent Auto 2.3 0-4 Basophils Percent Auto 0.5 0-2 NRBC Pct Auto 0.0 0.0-0.2 Neutrophils Absolute Auto 6.9 2. 0-8.3 Imm Gran Abs Auto 0.03 0.00-0.03 Lymphocytes Absolute Auto 1.9 1. 2-4.9 Monocytes Absolute Auto 0.7 0.1- 1.2 Eosinophils Absolute Auto 0.2 0. 0-0.4 Basophils Absolute Auto 0.1 0.0- 0.2 NRBC Abs Auto 0.000 0.0-0.012 Therapeutic Phlebotomy 2022-05-04 THER/HGB TNP 12.0-16.0 THER/HCT TNP 37.0-47.0 Therapeutic Phlebotomy Phlebotomy Performed Complete Blood Count Auto Diff 2022-03-04 White Blood Count 8.1 4.8-10.8 Red Blood Count 4.20 4.20-5.50 Hemoglobin 13.4 12.0-16.0 Hematocrit 41.4 37.0-47.0 Mean Corpuscular Volume 98.6 80.0 -98.0 Mean Corpuscular Hemoglobin 31.9 27.0-33.0 Mean Corpuscular HGB Conc 32.4 31 .0-35.0 Red Cell Distribution Width 13.7 11.0-16.0 Platelet Count 333 160-400 Mean Platelet Volume 9.7 9.4-12. 3 Neutrophils Percent Auto 67.7 45- 73 Imm Gran Pct Auto 0.4 0.0-0.4 Lymphocytes Percent Auto 20.5 20- 40 Monocytes Percent Auto 8.6 2-11 Eosinophils Percent Auto 2.2 0-4 Basophils Percent Auto 0.6 0-2 NRBC Pct Auto 0.0 0.0-0.2 Neutrophils Absolute Auto 5.5 2. 0-8.3 Imm Gran Abs Auto 0.03 0.00-0.03 Lymphocytes Absolute Auto 1.7 1. 2-4.9 Monocytes Absolute Auto 0.7 0.1- 1.2 Eosinophils Absolute Auto 0.2 0. 0-0.4 Basophils Absolute Auto 0.1 0.0- 0.2 NRBC Abs Auto 0.000 0.0-0.012 Comprehensive Met. Panel 2022-03-04 Sodium 139 135-145 Potassium 4.6 3.3-5.1 Chloride 102 96-108 Carbon Dioxide 25 22-29 Anion Gap 17 12-20 Blood Urea Nitrogen 20 9-16 Creatinine 0.91 0.5-1.4 Estimated Glomerular Filt Rate >60 Glucose Random 97 60-115 Calcium 9.1 8.4-10.2 Bilirubin Total 0.4 0.0-1.0 Aspartate Amino Transferase 16 5-31 Alanine Aminotransferase 17 0-3 1 Total Protein 7.1 6.5-8.0 Albumin Level 4.0 3.5-5.0 Alkaline Phosphatase 72 39-117 Therapeutic Phlebotomy 2022-03-04 THER/HGB TNP 12.0-16.0 THER/HCT TNP 37.0-47.0 Therapeutic Phlebotomy Phlebotomy Performed Complete Blood Count Auto Diff 2021-11-25 White Blood Count 8.2 4.8-10.8 Red Blood Count 3.92 4.20-5.50 Hemoglobin 12.7 12.0-16.0 Hematocrit 39.6 37.0-47.0 Mean Corpuscular Volume 101.0 80.0 -98.0 Mean Corpuscular Hemoglobin 32.4 27.0-33.0 Mean Corpuscular HGB Conc 32.1 31 .0-35.0 Red Cell Distribution Width 13.9 11.0-16.0 Platelet Count 377 160-400 Mean Platelet Volume 9.8 9.4-12. 3 Neutrophils Percent Auto 66.7 45- 73 Imm Gran Pct Auto 0.5 0.0-0.4 Lymphocytes Percent Auto 20.5 20- 40 Monocytes Percent Auto 8.7 2-11 Eosinophils Percent Auto 2.9 0-4 Basophils Percent Auto 0.7 0-2 NRBC Pct Auto 0.0 0.0-0.2 Neutrophils Absolute Auto 5.5 2. 0-8.3 Imm Gran Abs Auto 0.04 0.00-0.03 Lymphocytes Absolute Auto 1.7 1. 2-4.9 Monocytes Absolute Auto 0.7 0.1- 1.2 Eosinophils Absolute Auto 0.2 0. 0-0.4 Basophils Absolute Auto 0.1 0.0- 0.2 NRBC Abs Auto 0.000 0.0-0.012 Therapeutic Phlebotomy 2021-11-25 THER/HGB TNP 12.0-16.0 THER/HCT TNP 37.0-47.0 Therapeutic Phlebotomy TNP Complete Blood Count Auto Diff 2021-09-21 White Blood Count 11.1 4.8-10.8 Red Blood Count 4.16 4.20-5.50 Hemoglobin 13.6 12.0-16.0 Hematocrit 41.6 37.0-47.0 Mean Corpuscular Volume 100.0 80.0 -98.0 Mean Corpuscular Hemoglobin 32.7 27.0-33.0 Mean Corpuscular HGB Conc 32.7 31 .0-35.0 Red Cell Distribution Width 13.3 11.0-16.0 Platelet Count 374 160-400 Mean Platelet Volume 9.8 9.4-12. 3 Neutrophils Percent Auto 70.8 45- 73 Imm Gran Pct Auto 0.4 0.0-0.4 Lymphocytes Percent Auto 17.5 20- 40 Monocytes Percent Auto 9.2 2-11 Eosinophils Percent Auto 1.7 0-4 Basophils Percent Auto 0.4 0-2 NRBC Pct Auto 0.0 0.0-0.2 Neutrophils Absolute Auto 7.9 2. 0-8.3 Imm Gran Abs Auto 0.04 0.00-0.03 Lymphocytes Absolute Auto 1.9 1. 2-4.9 Monocytes Absolute Auto 1.0 0.1- 1.2 Eosinophils Absolute Auto 0.2 0. 0-0.4 Basophils Absolute Auto 0.0 0.0- 0.2 NRBC Abs Auto 0.000 0.0-0.012 Therapeutic Phlebotomy 2021-09-21 THER/HGB TNP 12.0-16.0 THER/HCT TNP 37.0-47.0 Therapeutic Phlebotomy Phlebotomy Performed Complete Blood Count no Diff 2021-07-12 White Blood Count 9.5 4.8-10.8 Red Blood Count 4.02 4.20-5.50 Hemoglobin 13.4 12.0-16.0 Hematocrit 40.3 37.0-47.0 Mean Corpuscular Volume 100.2 80.0 -98.0 Mean Corpuscular Hemoglobin 33.3 27.0-33.0 Mean Corpuscular HGB Conc 33.3 31 .0-35.0 Red Cell Distribution Width 13.1 11.0-16.0 Platelet Count 334 160-400 Mean Platelet Volume 9.9 9.4-12. 3 NRBC Pct Auto 0.0 0.0-0.2 NRBC Abs Auto 0.000 0.0-0.012 Therapeutic Phlebotomy 2021-07-12 THER/HGB TNP 12.0-16.0 THER/HCT TNP 37.0-47.0 Therapeutic Phlebotomy TNP Complete Blood Count Auto Diff 2021-06-28 White Blood Count 7.7 4.8-10.8 Red Blood Count 4.15 4.20-5.50 Hemoglobin 13.9 12.0-16.0 Hematocrit 42.5 37.0-47.0 Mean Corpuscular Volume 102.4 80.0 -98.0 Mean Corpuscular Hemoglobin 33.5 27.0-33.0 Mean Corpuscular HGB Conc 32.7 31 .0-35.0 Red Cell Distribution Width 13.2 11.0-16.0 Platelet Count 382 160-400 Mean Platelet Volume 10.0 9.4-12. 3 Neutrophils Percent Auto 67.4 45- 73 Imm Gran Pct Auto 0.3 0.0-0.4 Lymphocytes Percent Auto 20.1 20- 40 Monocytes Percent Auto 8.4 2-11 Eosinophils Percent Auto 3.1 0-4 Basophils Percent Auto 0.7 0-2 NRBC Pct Auto 0.0 0.0-0.2 Neutrophils Absolute Auto 5.2 2. 0-8.3 Imm Gran Abs Auto 0.02 0.00-0.03 Lymphocytes Absolute Auto 1.5 1. 2-4.9 Monocytes Absolute Auto 0.6 0.1- 1.2 Eosinophils Absolute Auto 0.2 0. 0-0.4 Basophils Absolute Auto 0.1 0.0- 0.2 NRBC Abs Auto 0.000 0.0-0.012 Erythrocyte Sedimentation Rate 2021-06-28 Erythrocyte Sedimentation Rate 16 0-20 Comprehensive Met. Panel 2021-06-28 Sodium 136 135-145 Potassium 4.9 3.3-5.1 Chloride 101 96-108 Carbon Dioxide 29 22-29 Anion Gap 11 12-20 Blood Urea Nitrogen 26 9-16 Creatinine 0.98 0.5-1.4 Estimated Glomerular Filt Rate 57 Glucose Random 104 60-115 Calcium 9.4 8.4-10.2 Bilirubin Total 0.6 0.0-1.0 Aspartate Amino Transferase 18 5-31 Alanine Aminotransferase 20 0-3 1 Total Protein 7.2 6.5-8.0 Albumin Level 4.0 3.5-5.0 Alkaline Phosphatase 72 39-117 Lipid Panel 2021-06-28 Triglycerides 111 Cholesterol 145 LDL Cholesterol Calculated 89 HDL Cholesterol 34 Thyroid Stimulating Hormone 2021-06-28 Thyroid Stimulating Hormone 1.45 0.32-4.0 Complete Blood Count Auto Diff 2021-05-13 White Blood Count 12.9 4.8-10.8 Red Blood Count 3.83 4.20-5.50 Hemoglobin 13.0 12.0-16.0 Hematocrit 39.9 37.0-47.0 Mean Corpuscular Volume 104.2 80.0 -98.0 Mean Corpuscular Hemoglobin 33.9 27.0-33.0 Mean Corpuscular HGB Conc 32.6 31 .0-35.0 Red Cell Distribution Width 13.6 11.0-16.0 Platelet Count 303 160-400 Mean Platelet Volume 9.8 9.4-12. 3 Neutrophils Percent Auto 76.3 45- 73 Imm Gran Pct Auto 0.5 0.0-0.4 Lymphocytes Percent Auto 13.2 20- 40 Monocytes Percent Auto 8.2 2-11 Eosinophils Percent Auto 1.6 0-4 Basophils Percent Auto 0.2 0-2 NRBC Pct Auto 0.0 0.0-0.2 Neutrophils Absolute Auto 9.8 2. 0-8.3 Imm Gran Abs Auto 0.06 0.00-0.03 Lymphocytes Absolute Auto 1.7 1. 2-4.9 Monocytes Absolute Auto 1.1 0.1- 1.2 Eosinophils Absolute Auto 0.2 0. 0-0.4 Basophils Absolute Auto 0.0 0.0- 0.2 NRBC Abs Auto 0.000 0.0-0.012 Therapeutic Phlebotomy 2021-05-13 THER/HGB TNP 12.0-16.0 THER/HCT TNP 37.0-47.0 Therapeutic Phlebotomy TNP Complete Blood Count no Diff 2021-03-15 White Blood Count 11.3 4.8-10.8 Red Blood Count 3.94 4.20-5.50 Hemoglobin 13.4 12.0-16.0 Hematocrit 40.6 37.0-47.0 Mean Corpuscular Volume 103.0 80.0 -98.0 Mean Corpuscular Hemoglobin 34.0 27.0-33.0 Mean Corpuscular HGB Conc 33.0 31 .0-35.0 Red Cell Distribution Width 14.5 11.0-16.0 Platelet Count 381 160-400 Mean Platelet Volume 9.5 9.4-12. 3 NRBC Pct Auto 0.0 0.0-0.2 NRBC Abs Auto 0.000 0.0-0.012 Therapeutic Phlebotomy 2021-03-15 THER/HGB TNP 12.0-16.0 THER/HCT TNP 37.0-47.0 Therapeutic Phlebotomy TNP Complete Blood Count Auto Diff 2021-01-12 White Blood Count 11.7 4.8-10.8 Red Blood Count 4.22 4.20-5.50 Hemoglobin 14.1 12.0-16.0 Hematocrit 42.6 37-47 Mean Corpuscular Volume 100.9 80-9 8 Mean Corpuscular Hemoglobin 33.4 27.0-33.0 Mean Corpuscular HGB Conc 33.1 31 .0-35.0 Red Cell Distribution Width 13.7 11.0-16.0 Platelet Count 386 160-400 Mean Platelet Volume 9.6 9.4-12. 3 Neutrophils Percent Auto 74.8 45- 73 Imm Gran Pct Auto 0.3 0.0-0.4 Lymphocytes Percent Auto 14.5 20- 40 Monocytes Percent Auto 8.5 2-11 Eosinophils Percent Auto 1.6 0-4 Basophils Percent Auto 0.3 0-2 NRBC Pct Auto 0.0 0.0-0.2 Neutrophils Absolute Auto 8.8 2. 0-8.3 Imm Gran Abs Auto 0.03 0.00-0.03 Lymphocytes Absolute Auto 1.7 1. 2-4.9 Monocytes Absolute Auto 1.0 0.1- 1.2 Eosinophils Absolute Auto 0.2 0. 0-0.4 Basophils Absolute Auto 0.0 0.0- 0.2 NRBC Abs Auto 0.000 0.0-0.012 Therapeutic Phlebotomy 2021-01-12 THER/HGB TNP 12.0-16.0 THER/HCT TNP 37.0-47.0 Therapeutic Phlebotomy TNP Complete Blood Count Auto Diff 2020-11-09 White Blood Count 12.1 4.8-10.8 Red Blood Count 4.32 4.20-5.50 Hemoglobin 14.1 12.0-16.0 Hematocrit 43.5 37-47 Mean Corpuscular Volume 100.7 80-9 8 Mean Corpuscular Hemoglobin 32.6 27.0-33.0 Mean Corpuscular HGB Conc 32.4 31 .0-35.0 Red Cell Distribution Width 14.3 11.0-16.0 Platelet Count 368 160-400 Mean Platelet Volume 9.5 9.4-12. 3 Neutrophils Percent Auto 75.6 45- 73 Imm Gran Pct Auto 0.4 0.0-0.4 Lymphocytes Percent Auto 14.9 20- 40 Monocytes Percent Auto 7.3 2-11 Eosinophils Percent Auto 1.3 0-4 Basophils Percent Auto 0.5 0-2 NRBC Pct Auto 0.0 0.0-0.2 Neutrophils Absolute Auto 9.1 2. 0-8.3 Imm Gran Abs Auto 0.05 0.00-0.03 Lymphocytes Absolute Auto 1.8 1. 2-4.9 Monocytes Absolute Auto 0.9 0.1- 1.2 Eosinophils Absolute Auto 0.2 0. 0-0.4 Basophils Absolute Auto 0.1 0.0- 0.2 NRBC Abs Auto 0.000 0.0-0.012 Therapeutic Phlebotomy 2020-11-09 THER/HGB TNP 12.0-16.0 THER/HCT TNP 37.0-47.0 Therapeutic Phlebotomy TNP Complete Blood Count Auto Diff 2020-08-21 White Blood Count 9.5 4.8-10.8 Red Blood Count 4.20 4.20-5.50 Hemoglobin 13.6 12.0-16.0 Hematocrit 41.5 37-47 Mean Corpuscular Volume 98.8 80-9 8 Mean Corpuscular Hemoglobin 32.4 27.0-33.0 Mean Corpuscular HGB Conc 32.8 31 .0-35.0 Red Cell Distribution Width 13.2 11.0-16.0 Platelet Count 355 160-400 Mean Platelet Volume 9.5 9.4-12. 3 Neutrophils Percent Auto 66.5 45- 73 Imm Gran Pct Auto 0.1 0.0-0.4 Lymphocytes Percent Auto 23.5 20- 40 Monocytes Percent Auto 7.8 2-11 Eosinophils Percent Auto 1.8 0-4 Basophils Percent Auto 0.3 0-2 NRBC Pct Auto 0.0 0.0-0.2 Neutrophils Absolute Auto 6.3 2. 0-8.3 Imm Gran Abs Auto 0.01 0.00-0.03 Lymphocytes Absolute Auto 2.2 1. 2-4.9 Monocytes Absolute Auto 0.7 0.1- 1.2 Eosinophils Absolute Auto 0.2 0. 0-0.4 Basophils Absolute Auto 0.0 0.0- 0.2 NRBC Abs Auto 0.000 0.0-0.012 Therapeutic Phlebotomy 2020-08-21 THER/HGB TNP 12.0-16.0 THER/HCT TNP 37.0-47.0 Therapeutic Phlebotomy TNP Complete Blood Count Auto Diff 2020-06-22 White Blood Count 10.3 4.8-10.8 Red Blood Count 4.14 4.20-5.50 Hemoglobin 13.7 12.0-16.0 Hematocrit 41.8 37-47 Mean Corpuscular Volume 101.0 80-9 8 Mean Corpuscular Hemoglobin 33.1 27.0-33.0 Mean Corpuscular HGB Conc 32.8 31 .0-35.0 Red Cell Distribution Width 13.6 11.0-16.0 Platelet Count 343 160-400 Mean Platelet Volume 9.6 9.4-12. 3 Neutrophils Percent Auto 69.1 45- 73 Imm Gran Pct Auto 0.4 0.0-0.4 Lymphocytes Percent Auto 20.8 20- 40 Monocytes Percent Auto 7.9 2-11 Eosinophils Percent Auto 1.3 0-4 Basophils Percent Auto 0.5 0-2 NRBC Pct Auto 0.0 0.0-0.2 Neutrophils Absolute Auto 7.1 2. 0-8.3 Imm Gran Abs Auto 0.04 0.00-0.03 Lymphocytes Absolute Auto 2.1 1. 2-4.9 Monocytes Absolute Auto 0.8 0.1- 1.2 Eosinophils Absolute Auto 0.1 0. 0-0.4 Basophils Absolute Auto 0.1 0.0- 0.2 NRBC Abs Auto 0.000 0.0-0.012 Therapeutic Phlebotomy 2020-06-22 THER/HGB TNP 12.0-16.0 THER/HCT TNP 37.0-47.0 Therapeutic Phlebotomy TNP THERAPEUTIC PHLEBOTOMY ORDER 2020-01-03 HEMOGLOBIN Test not performed 04-01 HEMATOCRIT Test not performed 3747 THERAPEUTIC PHLEBOTOMY Test not performed CBC w/o DIFF 2020-01-03 WBC 7.4 4.8-10.8 RBC 3.99 4.20-5.50 HEMOGLOBIN 13.2 12.0-16.0 HEMATOCRIT 40.2 37-47 MCV 100.8 80-98 MCH 33.1 27.0-33.0 MCHC 32.8 31.0-35.0 PLATELET COUNT 309 160-400 RDW 13.4 11.0-16.0 THERAPEUTIC PHLEBOTOMY ORDER 2019-10-30 HEMOGLOBIN Test not performed 04-01 HEMATOCRIT Test not performed THERAPEUTIC PHLEBOTOMY Test not performed PROFILE, RANDOM (COMPREHENSI VE METABOLIC) 2019-10-30 NA 138 135-145 K 4.0 3.3-5.1 CL 103 96-108 CO2 25 22-29 ANION GAP 14 12-20 GLUCOSE,RANDOM 92 60-115 BUN 30 9-16 CREATININE 0.92 0.5-1.4 ESTIMATED GFR >60 PROTEIN, TOTAL 7.4 6.5-8.0 ALBUMIN 4.3 3.5-5.0 BILIRUBIN, TOTAL 0.5 0.0-1.0 CALCIUM 9.9 8.4-10.2 ALK. PHOS. 65 39-117 GOT 19 5-31 GPT 24 0-31 FERRITIN 2019-10-30 FERRITIN 101 10-250 CBC w/o DIFF 2019-10-30 WBC 9.7 4.8-10.8 RBC 4.23 4.20-5.50 HEMOGLOBIN 14.0 12.0-16.0 HEMATOCRIT 42.9 37-47 MCV 101.4 80-98 MCH 33.1 27.0-33.0 MCHC 32.6 31.0-35.0 PLATELET COUNT 348 160-400 RDW 13.6 11.0-16.0 CBC w/o DIFF 2019-09-03 WBC 9.3 4.8-10.8 RBC 4.05 4.20-5.50 HEMOGLOBIN 13.9 12.0-16.0 HEMATOCRIT 39.7 37-47 MCV 98.1 80-98 MCH 34.4 27.0-33.0 MCHC 35.1 31.0-35.0 PLATELET COUNT 332 160-400 RDW 12.9 11.0-16.0 THERAPEUTIC PHLEBOTOMY ORDER 2019-09-03 HEMOGLOBIN Test not performed 04-01 HEMATOCRIT Test not performed THERAPEUTIC PHLEBOTOMY Test not performed MAMMOGRAM DIGITAL BILATERAL DIAGNO 08 THERAPEUTIC PHLEBOTOMY ORDER 2019-07-04 HEMOGLOBIN Test not performed 04-01 HEMATOCRIT Test not performed THERAPEUTIC PHLEBOTOMY Test not performed CBC w/o DIFF 2019-07-04 WBC 10.2 4.8-10.8 RBC 4.25 4.20-5.50 HEMOGLOBIN 14.1 12.0-16.0 HEMATOCRIT 42.5 37-47 MCV 100.1 80-98 MCH 33.3 27.0-33.0 MCHC 33.2 31.0-35.0 PLATELET COUNT 389 160-400 RDW 12.6 11.0-16.0 THERAPEUTIC PHLEBOTOMY ORDER 2019-05-02 HEMOGLOBIN 14.2 12-16 HEMATOCRIT 41.7 37-47 THERAPEUTIC PHLEBOTOMY Test not performed THERAPEUTIC PHLEBOTOMY ORDER 2019-02-26 HEMOGLOBIN Test not performed 04-01 HEMATOCRIT Test not performed THERAPEUTIC PHLEBOTOMY Test not performed CBC w/o DIFF 2019-02-26 WBC 9.5 4.8-10.8 RBC 4.41 4.20-5.50 HEMOGLOBIN 14.5 12.0-16.0 HEMATOCRIT 42.7 37-47 MCV 96.8 80-98 MCH 32.8 27.0-33.0 MCHC 33.9 31.0-35.0 PLATELET COUNT 319 160-400 RDW 11.7 11.0-16.0 THERAPEUTIC PHLEBOTOMY ORDER 2018-12-31 HEMOGLOBIN Test not performed 04-01 HEMATOCRIT Test not performed THERAPEUTIC PHLEBOTOMY Test not performed CBC w/o DIFF 2018-12-31 WBC 7.6 4.8-10.8 RBC 4.45 4.20-5.50 HEMOGLOBIN 14.9 12.0-16.0 HEMATOCRIT 44.9 37-47 MCV 100.8 80-98 MCH 33.5 27.0-33.0 MCHC 33.2 31.0-35.0 PLATELET COUNT 402 160-400 RDW 12.4 11.0-16.0 THERAPEUTIC PHLEBOTOMY ORDER 2018-10-03 HEMOGLOBIN Test not performed 04-01 HEMATOCRIT Test not performed THERAPEUTIC PHLEBOTOMY Test not performed CBC w/o DIFF 2018-10-03 WBC 8.1 4.8-10.8 RBC 4.39 4.20-5.50 HEMOGLOBIN 14.6 12.0-16.0 HEMATOCRIT 43.6 37-47 MCV 99.3 80-98 MCH 33.2 27.0-33.0 MCHC 33.4 31.0-35.0 PLATELET COUNT 313 160-400 RDW 13.2 11.0-16.0 THERAPEUTIC PHLEBOTOMY ORDER 2018-09-05 HEMOGLOBIN Test not performed 04-01 HEMATOCRIT Test not performed THERAPEUTIC PHLEBOTOMY Test not performed CBC w/o DIFF 2018-09-05 WBC 9.1 4.8-10.8 RBC 4.26 4.20-5.50 HEMOGLOBIN 14.2 12.0-16.0 HEMATOCRIT 41.2 37-47 MCV 96.6 80-98 MCH 33.4 27.0-33.0 MCHC 34.5 31.0-35.0 PLATELET COUNT 328 160-400 RDW 13.2 11.0-16.0 THERAPEUTIC PHLEBOTOMY ORDER 2018-08-08 HEMOGLOBIN Test not performed 04-01 HEMATOCRIT Test not performed THERAPEUTIC PHLEBOTOMY Test not performed CBC w/o DIFF 2018-08-08 WBC 8.9 4.8-10.8 RBC 4.35 4.20-5.50 HEMOGLOBIN 14.1 12.0-16.0 HEMATOCRIT 42.7 37-47 MCV 98.2 80-98 MCH 32.4 27.0-33.0 MCHC 33.0 31.0-35.0 PLATELET COUNT 315 160-400 RDW 13.8 11.0-16.0 THERAPEUTIC PHLEBOTOMY ORDER 2018-07-04 HEMOGLOBIN Test not performed 04-01 HEMATOCRIT Test not performed THERAPEUTIC PHLEBOTOMY Test not performed CBC w/o DIFF 2018-07-04 WBC 8.8 4.8-10.8 RBC 4.30 4.20-5.50 HEMOGLOBIN 13.9 12.0-16.0 HEMATOCRIT 42.4 37-47 MCV 98.6 80-98 MCH 32.4 27.0-33.0 MCHC 32.9 31.0-35.0 PLATELET COUNT 319 160-400 RDW 13.2 11.0-16.0 MAMMOGRAM DIGITAL BILATERAL DIAGNO 07-02 THERAPEUTIC PHLEBOTOMY ORDER 2018-06-07 HEMOGLOBIN Test not performed 04-01 HEMATOCRIT Test not performed THERAPEUTIC PHLEBOTOMY Test not performed CBC w/o DIFF 2018-06-07 WBC 9.6 4.8-10.8 RBC 4.51 4.20-5.50 HEMOGLOBIN 14.5 12.0-16.0 HEMATOCRIT 44.4 37-47 MCV 98.5 80-98 MCH 32.1 27.0-33.0 MCHC 32.6 31.0-35.0 PLATELET COUNT 331 160-400 RDW 14.4 11.0-16.0 THERAPEUTIC PHLEBOTOMY ORDER 2018-06-07 HEMOGLOBIN Test not performed 04-01 HEMATOCRIT Test not performed THERAPEUTIC PHLEBOTOMY Test not performed THERAPEUTIC PHLEBOTOMY ORDER 2018-05-04 HEMOGLOBIN Test not performed 04-01 HEMATOCRIT Test not performed THERAPEUTIC PHLEBOTOMY Test not performed CBC w/o DIFF 2018-05-04 WBC 7.2 4.8-10.8 RBC 4.60 4.20-5.50 HEMOGLOBIN 14.4 12.0-16.0 HEMATOCRIT 44.0 37-47 MCV 95.5 80-98 MCH 31.2 27.0-33.0 MCHC 32.7 31.0-35.0 PLATELET COUNT 314 160-400 RDW 14.8 11.0-16.0 THERAPEUTIC PHLEBOTOMY ORDER 2018-04-05 HEMOGLOBIN Test not performed 04-01 HEMATOCRIT Test not performed THERAPEUTIC PHLEBOTOMY Test not performed CBC w/o DIFF 2018-04-05 WBC 8.3 4.8-10.8 RBC 4.36 4.20-5.50 HEMOGLOBIN 13.6 12.0-16.0 HEMATOCRIT 40.9 37-47 MCV 93.9 80-98 MCH 31.2 27.0-33.0 MCHC 33.2 31.0-35.0 PLATELET COUNT 313 160-400 RDW 15.1 11.0-16.0 THERAPEUTIC PHLEBOTOMY ORDER 2018-03-07 HEMOGLOBIN Test not performed 04-01 HEMATOCRIT Test not performed THERAPEUTIC PHLEBOTOMY Test not performed CBC w/o DIFF 2018-03-07 WBC 8.8 4.8-10.8 RBC 4.37 4.20-5.50 HEMOGLOBIN 13.2 12.0-16.0 HEMATOCRIT 41.4 37-47 MCV 94.6 80-98 MCH 30.2 27.0-33.0 MCHC 31.9 31.0-35.0 PLATELET COUNT 314 160-400 RDW 14.3 11.0-16.0 THERAPEUTIC PHLEBOTOMY ORDER 2018-02-02 HEMOGLOBIN Test not performed 04-01 HEMATOCRIT Test not performed THERAPEUTIC PHLEBOTOMY THER. PHLEBOTOMY CBC w/o DIFF 2018-02-02 WBC 7.2 4.8-10.8 RBC 5.10 4.20-5.50 HEMOGLOBIN 15.5 12.0-16.0 HEMATOCRIT 48.7 37-47 MCV 95.6 80-98 MCH 30.4 27.0-33.0 MCHC 31.8 31.0-35.0 PLATELET COUNT 341 160-400 RDW 13.9 11.0-16.0 THERAPEUTIC PHLEBOTOMY ORDER 2017-11-29 HEMOGLOBIN Test not performed 04-01 HEMATOCRIT Test not performed THERAPEUTIC PHLEBOTOMY THER. PHLEBOTOMY CBC w/o DIFF 2017-11-29 WBC 8.1 4.8-10.8 RBC 5.05 4.20-5.50 HEMOGLOBIN 15.5 12.0-16.0 HEMATOCRIT 48.5 37-47 MCV 96.1 80-98 MCH 30.6 27.0-33.0 MCHC 31.9 31.0-35.0 PLATELET COUNT 324 160-400 RDW 15.2 11.0-16.0 THERAPEUTIC PHLEBOTOMY ORDER 2017-10-25 HEMOGLOBIN Test not performed 04-01 HEMATOCRIT Test not performed THERAPEUTIC PHLEBOTOMY Test not performed CBC w/o DIFF 2017-10-25 WBC 7.9 4.8-10.8 RBC 4.67 4.20-5.50 HEMOGLOBIN 13.7 12.0-16.0 HEMATOCRIT 42.3 37-47 MCV 90.6 80-98 MCH 29.4 27.0-33.0 MCHC 32.4 31.0-35.0 PLATELET COUNT 303 160-400 RDW 16.8 11.0-16.0 THERAPEUTIC PHLEBOTOMY ORDER 2017-09-26 HEMOGLOBIN Test not performed 04-01 HEMATOCRIT Test not performed THERAPEUTIC PHLEBOTOMY Test not performed CBC w/o DIFF 2017-09-26 WBC 7.7 4.8-10.8 RBC 4.97 4.20-5.50 HEMOGLOBIN 14.6 12.0-16.0 HEMATOCRIT 45.1 37-47 MCV 90.9 80-98 MCH 29.3 27.0-33.0 MCHC 32.3 31.0-35.0 PLATELET COUNT 308 160-400 RDW 16.4 11.0-16.0 THERAPEUTIC PHLEBOTOMY ORDER 2017-09-06 HEMOGLOBIN Test not performed 04-01 HEMATOCRIT Test not performed THERAPEUTIC PHLEBOTOMY Test not performed CBC w/o DIFF 2017-09-06 WBC 10.0 4.8-10.8 RBC 4.77 4.20-5.50 HEMOGLOBIN 14.1 12.0-16.0 HEMATOCRIT 43.1 37-47 MCV 90.3 80-98 MCH 29.5 27.0-33.0 MCHC 32.6 31.0-35.0 PLATELET COUNT 350 160-400 RDW 16.3 11.0-16.0 CA 27.29 BREAST TUMOR MARKER 2017-08-17 CA 27.29 24.6 <=38.6 CBC WITH AUTO DIFF 2017-08-17 WBC 8.8 4.8-10.8 RBC 5.0 3.8-4.8 HEMOGLOBIN 14.0 11.5-16.0 HEMATOCRIT 45.3 35-47 MCV 91.1 79-98 MCH 28.2 27-32 MCHC 30.9 32-37 RDW 17.2 11-15 PLT COUNT 384 130-400 MEAN PLATELET VOLUME 10.4 7-11 NEUT % 63.4 LYMPH % 23.3 MONO % 10.0 EOS % 2.2 BASO % 0.5 ABSOLUTE NEUT 5.58 1.5-7.0 COMPREHENSIVE METABOLIC PANEL 2017-08-17 GLUCOSE 77 70-100 BUN 13 5-25 CREAT 0.82 0.5-1.1 GLOMERULAR FILTRATION RATE >60 SODIUM 142 133-145 POTASSIUM 4.4 3.5-5.5 CHLORIDE 110 96-110 CO2 25 21-32 ANION GAP 7 3-11 CALCIUM 8.6 8.5-10.5 TOTAL PROTEIN 7.4 6.0-8.0 ALBUMIN 3.9 3.2-5.0 BILI,TOTAL 0.3 0.0-1.4 SGOT 18 10-42 SGPT 22 10-60 ALK PHOS 96 42-121 BONE DENSITY DEXA 2017-08-18 THERAPEUTIC PHLEBOTOMY ORDER 2017-08-09 HEMOGLOBIN Test not performed 04-01 HEMATOCRIT Test not performed THERAPEUTIC PHLEBOTOMY Test not performed CBC w DIFF 2017-08-08 WBC 9.6 4.8-10.8 ABSOLUTE NEUTROPHIL COUNT 6.4 2. 2-7.9 RBC 4.91 4.20-5.50 HEMOGLOBIN 14.4 12.0-16.0 HEMATOCRIT 44.2 37-47 MCV 90.1 80-98 MCH 29.3 27.0-33.0 MCHC 32.5 31.0-35.0 PLATELET COUNT 415 160-400 RDW 16.1 11.0-16.0 NEUTROPHILS 66.5 45-73 LYMPHOCYTES 22.0 20-40 MONOCYTES 7.8 2-11 EOSINOPHILS 2.5 0-4 BASOPHILS 1.2 0-2 THERAPEUTIC PHLEBOTOMY ORDER 2017-07-04 HEMOGLOBIN Test not performed 04-01 HEMATOCRIT Test not performed 3747 THERAPEUTIC PHLEBOTOMY Test not performed CBC w/o DIFF 2017-07-04 WBC 9.2 4.8-10.8 RBC 4.76 4.20-5.50 HEMOGLOBIN 14.0 12.0-16.0 HEMATOCRIT 43.6 37-47 MCV 91.5 80-98 MCH 29.4 27.0-33.0 MCHC 32.2 31.0-35.0 PLATELET COUNT 360 160-400 RDW 16.0 11.0-16.0 THERAPEUTIC PHLEBOTOMY ORDER 2017-06-12 HEMOGLOBIN Test not performed 04-01 HEMATOCRIT Test not performed THERAPEUTIC PHLEBOTOMY THER. PHLEBOTOMY CBC w/o DIFF 2017-06-12 WBC 9.5 4.8-10.8 RBC 5.24 4.20-5.50 HEMOGLOBIN 15.3 12.0-16.0 HEMATOCRIT 48.8 37-47 MCV 93.1 80-98 MCH 29.2 27.0-33.0 MCHC 31.3 31.0-35.0 PLATELET COUNT 371 160-400 RDW 16.5 11.0-16.0 THERAPEUTIC PHLEBOTOMY ORDER 2017-05-10 HEMOGLOBIN Test not performed 04-01 HEMATOCRIT Test not performed THERAPEUTIC PHLEBOTOMY Test not performed CBC w/o DIFF 2017-05-10 WBC 8.7 4.8-10.8 RBC 4.91 4.20-5.50 HEMOGLOBIN 14.7 12.0-16.0 HEMATOCRIT 47.2 37-47 MCV 96.2 80-98 MCH 30.0 27.0-33.0 MCHC 31.2 31.0-35.0 PLATELET COUNT 383 160-400 RDW 15.5 11.0-16.0 THERAPEUTIC PHLEBOTOMY ORDER 2017-04-05 HEMOGLOBIN Test not performed 04-01 HEMATOCRIT Test not performed THERAPEUTIC PHLEBOTOMY Test not performed CBC w/o DIFF 2017-04-05 WBC 8.0 4.8-10.8 RBC 4.73 4.20-5.50 HEMOGLOBIN 14.5 12.0-16.0 HEMATOCRIT 45.6 37-47 MCV 96.5 80-98 MCH 30.8 27.0-33.0 MCHC 31.9 31.0-35.0 PLATELET COUNT 435 160-400 RDW 15.4 11.0-16.0 THERAPEUTIC PHLEBOTOMY ORDER 2017-03-01 HEMOGLOBIN Test not performed 04-01 HEMATOCRIT Test not performed 3747 THERAPEUTIC PHLEBOTOMY THER. PHLEBOTOMY CBC w/o DIFF 2017-03-01 WBC 9.5 4.8-10.8 RBC 5.10 4.20-5.50 HEMOGLOBIN 15.5 12.0-16.0 HEMATOCRIT 49.1 37-47 MCV 96.2 80-98 MCH 30.5 27.0-33.0 MCHC 31.7 31.0-35.0 PLATELET COUNT 326 160-400 RDW 16.4 11.0-16.0 THERAPEUTIC PHLEBOTOMY ORDER 2017-01-31 HEMOGLOBIN Test not performed 04-01 HEMATOCRIT Test not performed 3747 THERAPEUTIC PHLEBOTOMY Test not performed CBC w/o DIFF 2017-01-31 WBC 9.9 4.8-10.8 RBC 4.95 4.20-5.50 HEMOGLOBIN 14.8 12.0-16.0 HEMATOCRIT 47.1 37-47 MCV 95.3 80-98 MCH 30.0 27.0-33.0 MCHC 31.4 31.0-35.0 PLATELET COUNT 307 160-400 RDW 16.3 11.0-16.0 THERAPEUTIC PHLEBOTOMY ORDER 2017-01-03 HEMOGLOBIN Test not performed 04-01 HEMATOCRIT Test not performed 3747 THERAPEUTIC PHLEBOTOMY Test not performed CBC w/o DIFF 2017-01-03 WBC 9.4 4.8-10.8 RBC 4.90 4.20-5.50 HEMOGLOBIN 14.7 12.0-16.0 HEMATOCRIT 47.1 37-47 MCV 96.2 80-98 MCH 30.1 27.0-33.0 MCHC 31.3 31.0-35.0 PLATELET COUNT 370 160-400 RDW 17.3 11.0-16.0 THERAPEUTIC PHLEBOTOMY ORDER 2016-12-08 HEMOGLOBIN Test not performed 04-01 HEMATOCRIT Test not performed 3747 THERAPEUTIC PHLEBOTOMY Test not performed CBC w/o DIFF 2016-12-08 WBC 8.6 4.8-10.8 RBC 4.90 4.20-5.50 HEMOGLOBIN 14.3 12.0-16.0 HEMATOCRIT 46.0 37-47 MCV 94.0 80-98 MCH 29.3 27.0-33.0 MCHC 31.2 31.0-35.0 PLATELET COUNT 336 160-400 RDW 15.8 11.0-16.0 CBC 2016-11-04 WBC 8.1 4.8-10.8 RBC 4.8 3.8-4.8 HEMOGLOBIN 14.3 11.5-16.0 HEMATOCRIT 44.1 35-47 MCV 91.1 79-98 MCH 29.5 27-32 MCHC 32.4 32-37 RDW 16.2 11-15 PLT COUNT 353 130-400 MEAN PLATELET VOLUME 10.7 7-11 THERAPEUTIC PHLEBOTOMY ORDER 2016-10-20 HEMOGLOBIN Test not performed 04-01 HEMATOCRIT Test not performed THERAPEUTIC PHLEBOTOMY Test not performed CBC w/o DIFF 2016-10-20 WBC 8.6 4.8-10.8 RBC 4.56 4.20-5.50 HEMOGLOBIN 13.6 12.0-16.0 HEMATOCRIT 43.3 37-47 MCV 94.9 80-98 MCH 29.8 27.0-33.0 MCHC 31.4 31.0-35.0 PLATELET COUNT 354 160-400 RDW 15.5 11.0-16.0 THERAPEUTIC PHLEBOTOMY ORDER 2016-09-08 HEMOGLOBIN Test not performed 04-01 HEMATOCRIT Test not performed THERAPEUTIC PHLEBOTOMY THER. PHLEBOTOMY CBC w/o DIFF 2016-09-08 WBC 8.4 4.8-10.8 RBC 4.93 4.20-5.50 HEMOGLOBIN 15.2 12.0-16.0 HEMATOCRIT 45.7 37-47 MCV 92.6 80-98 MCH 30.8 27.0-33.0 MCHC 33.3 31.0-35.0 PLATELET COUNT 385 160-400 RDW 15.3 11.0-16.0 THERAPEUTIC PHLEBOTOMY ORDER 2016-07-29 HEMOGLOBIN Test not performed 04-01 HEMATOCRIT Test not performed THERAPEUTIC PHLEBOTOMY Test not performed CBC w/o DIFF 2016-07-29 WBC 6.9 4.8-10.8 RBC 4.73 4.20-5.50 HEMOGLOBIN 14.1 12.0-16.0 HEMATOCRIT 45.0 37-47 MCV 95.2 80-98 MCH 29.9 27.0-33.0 MCHC 31.4 31.0-35.0 PLATELET COUNT 391 160-400 RDW 16.0 11.0-16.0 THERAPEUTIC PHLEBOTOMY ORDER 2016-04-28 HEMOGLOBIN Test not performed 04-01 HEMATOCRIT Test not performed THERAPEUTIC PHLEBOTOMY Test not performed CBC w/o DIFF 2016-04-28 WBC 9.1 4.8-10.8 RBC 4.91 4.20-5.50 HEMOGLOBIN 13.8 12.0-16.0 HEMATOCRIT 44.2 37-47 MCV 90.1 80-98 MCH 28.2 27.0-33.0 MCHC 31.3 31.0-35.0 PLATELET COUNT 370 160-400 RDW 18.8 11.0-16.0 THERAPEUTIC PHLEBOTOMY ORDER 2016-03-02 HEMOGLOBIN Test not performed 04-01 HEMATOCRIT Test not performed THERAPEUTIC PHLEBOTOMY Test not performed CBC w/o DIFF 2016-03-02 WBC 8.9 4.8-10.8 RBC 4.85 4.20-5.50 HEMOGLOBIN 13.7 12.0-16.0 HEMATOCRIT 42.1 37-47 MCV 86.8 80-98 MCH 28.2 27.0-33.0 MCHC 32.5 31.0-35.0 PLATELET COUNT 381 160-400 RDW 17.7 11.0-16.0 THERAPEUTIC PHLEBOTOMY ORDER 2016-03-02 HEMOGLOBIN Test not performed 04-01 HEMATOCRIT Test not performed THERAPEUTIC PHLEBOTOMY Test not performed THERAPEUTIC PHLEBOTOMY ORDER 2016-01-27 HEMOGLOBIN Test not performed 04-01 HEMATOCRIT Test not performed THERAPEUTIC PHLEBOTOMY Test not performed CBC w/o DIFF 2016-01-27 WBC 7.9 4.8-10.8 RBC 5.00 4.20-5.50 HEMOGLOBIN 13.8 12.0-16.0 HEMATOCRIT 44.2 37-47 MCV 88.4 80-98 MCH 27.5 27.0-33.0 MCHC 31.1 31.0-35.0 PLATELET COUNT 454 160-400 RDW 15.5 11.0-16.0 THERAPEUTIC PHLEBOTOMY ORDER 2015-12-23 HEMOGLOBIN Test not performed 04-01 HEMATOCRIT Test not performed 47 THERAPEUTIC PHLEBOTOMY THER. PHLEBOTOMY CBC w/o DIFF 2015-12-23 WBC 9.3 4.8-10.8 RBC 5.15 4.20-5.50 HEMOGLOBIN 14.9 12.0-16.0 HEMATOCRIT 46.2 37-47 MCV 89.7 80-98 MCH 29.0 27.0-33.0 MCHC 32.4 31.0-35.0 PLATELET COUNT 477 160-400 RDW 15.0 11.0-16.0 THERAPEUTIC PHLEBOTOMY ORDER 2015-11-19 HEMOGLOBIN Test not performed 04-01 HEMATOCRIT Test not performed THERAPEUTIC PHLEBOTOMY THER. PHLEBOTOMY CBC w/o DIFF 2015-11-19 WBC 9.2 4.8-10.8 RBC 4.96 4.20-5.50 HEMOGLOBIN 14.7 12.0-16.0 HEMATOCRIT 46.0 37-47 MCV 92.6 80-98 MCH 29.6 27.0-33.0 MCHC 32.0 31.0-35.0 PLATELET COUNT 380 160-400 RDW 14.6 11.0-16.0 THERAPEUTIC PHLEBOTOMY ORDER 2015-10-22 HEMOGLOBIN Test not performed 04-01 HEMATOCRIT Test not performed THERAPEUTIC PHLEBOTOMY THER. PHLEBOTOMY CBC w/o DIFF 2015-10-22 WBC 8.4 4.8-10.8 RBC 4.97 4.20-5.50 HEMOGLOBIN 15.7 12.0-16.0 HEMATOCRIT 47.7 37-47 MCV 96.0 80-98 MCH 31.6 27.0-33.0 MCHC 32.9 31.0-35.0 PLATELET COUNT 322 160-400 RDW 15.4 11.0-16.0 CBC WITH AUTO DIFF 2015-10-13 WBC 8.3 4.8-10.8 RBC 5.4 3.8-4.8 HEMOGLOBIN 16.1 11.5-16.0 HEMATOCRIT 51.7 35-47 MCV 95.0 79-98 MCH 29.6 27-32 MCHC 31.1 32-37 RDW 16.5 11-15 PLT COUNT 348 130-400 MEAN PLATELET VOLUME 10.9 7-11 NEUT % 61.5 LYMPH % 26.7 MONO % 8.2 EOS % 2.8 BASO % 0.6 ABSOLUTE NEUT 5.13 1.5-7.0 COMPREHENSIVE METABOLIC PANEL 2015-10-13 GLUCOSE 101 70-100 BUN 11 5-25 CREAT 0.87 0.5-1.1 GLOMERULAR FILTRATION RATE >60 SODIUM 139 133-145 POTASSIUM 4.0 3.5-5.5 CHLORIDE 105 96-110 CO2 25 21-32 ANION GAP 9 3-11 CALCIUM 9.1 8.5-10.5 TOTAL PROTEIN 7.9 6.0-8.0 ALBUMIN 4.1 3.2-5.0 BILI,TOTAL 0.4 0.0-1.4 SGOT 26 10-42 SGPT 32 10-60 ALK PHOS 78 42-121 FERRITIN 2015-10-13 FERRITIN 10 8-252 CBC WITH AUTO DIFF 2015-07-20 WBC 10.0 4.8-10.8 RBC 5.2 3.8-4.8 HEMOGLOBIN 15.4 11.5-16.0 HEMATOCRIT 48.4 35-47 MCV 93.8 79-98 MCH 29.8 27-32 MCHC 31.8 32-37 RDW 17.3 11-15 PLT COUNT 372 130-400 MEAN PLATELET VOLUME 10.5 7-11 NEUT % 65.0 LYMPH % 25.0 MONO % 7.3 EOS % 1.5 BASO % 0.8 ABSOLUTE NEUT 6.49 1.5-7.0 FERRITIN 2015-07-20 FERRITIN 9 20-350 CBC WITH AUTO DIFF 2015-05-18 WBC 10.4 4.8-10.8 RBC 5.0 3.8-4.8 HEMOGLOBIN 14.6 11.5-16.0 HEMATOCRIT 46.3 35-47 MCV 93.0 79-98 MCH 29.3 27-32 MCHC 31.5 32-37 RDW 18.6 11-15 PLT COUNT 397 130-400 MEAN PLATELET VOLUME 10.3 7-11 NEUT % 62 41-85 LYMPH % 28 15-48 MONO % 8 0-12 EOS % 2 0-5 BASO % 1 0-2 ABSOLUTE NEUT 6.4 >1.5 COMPREHENSIVE METABOLIC PANEL 2015-05-18 GLUCOSE 89 70-100 BUN 15 5-25 CREAT 0.87 0.5-1.1 GLOMERULAR FILTRATION RATE >60 SODIUM 140 133-145 POTASSIUM 4.5 3.5-5.5 CHLORIDE 104 96-110 CO2 26 21-32 ANION GAP 10 3-11 CALCIUM 8.8 8.5-10.5 TOTAL PROTEIN 7.3 6.0-8.0 ALBUMIN 4.0 3.2-5.0 BILI,TOTAL 0.3 0.0-1.4 SGOT 21 10-42 SGPT 19 10-60 ALK PHOS 86 42-121 ESR 2015-05-18 ESR 2 0-30 PROFILE, RANDOM (COMPREHENSI VE METABOLIC) ELECTROLYTES NA K CL CO2 ANION GAP GLUCOSE,RANDOM BUN CREATININE CREATININE ESTIMATED GFR ESTIMATED CrCl PROTEIN, TOTAL ALBUMIN BILIRUBIN, TOTAL CALCIUM ALK. PHOS. GOT GPT CBC w DIFF MANUAL DIFF FLAG WBC WBC ABSOLUTE NEUTROPHIL COUNT ABSOLUTE NEUTROPHIL COUNT RBC HEMOGLOBIN HEMATOCRIT MCV MCH MCHC PLATELET COUNT PLATELET COUNT RDW NEUTROPHILS LYMPHOCYTES MONOCYTES EOSINOPHILS BASOPHILS ABSOLUTE NEUTROPHIL COUNT ABSOLUTE LYMPHOCYTE COUNT ABSOLUTE MONOCYTE COUNT ABSOLUTE EOSINOPHIL COUNT ABSOLUTE BASOPHIL COUNT IG/BANDS BAND FLAG BLAST FLAG VARIANT LYMPHS DFLT N DFLT L DFLT M DFLT E DFLT B LRI URI MPV FWBC FLAG NRBC FLAG RRBC FLAG NWBC FLAG MPV FLAG SED RATE (ESR) SED RATE CBC WITH AUTO DIFF 2015-03-05 WBC 9.2 4.8-10.8 RBC 5.0 3.8-4.8 HEMOGLOBIN 14.3 11.5-16.0 HEMATOCRIT 44.6 35-47 MCV 89.6 79-98 MCH 28.7 27-32 MCHC 32.1 32-37 RDW 17.6 11-15 PLT COUNT 414 130-400 MEAN PLATELET VOLUME 10.5 7-11 NEUT % 61 41-85 LYMPH % 29 15-48 MONO % 8 0-12 EOS % 3 0-5 BASO % 0 0-2 ABSOLUTE NEUT 5.6 >1.5 FERRITIN 2015-03-05 FERRITIN 8 20-350 CBC WITH AUTO DIFF 2015-01-20 WBC 8.1 4.8-10.8 RBC 5.2 3.8-4.8 HEMOGLOBIN 14.8 11.5-16.0 HEMATOCRIT 46.7 35-47 MCV 89.8 79-98 MCH 28.5 27-32 MCHC 31.7 32-37 RDW 16.3 11-15 PLT COUNT 403 130-400 MEAN PLATELET VOLUME 10.3 7-11 NEUT % 64 41-85 LYMPH % 24 15-48 MONO % 9 0-12 EOS % 3 0-5 BASO % 1 0-2 ABSOLUTE NEUT 5.1 >1.5 FERRITIN 2015-01-20 FERRITIN 7 20-350 FERRITIN FERRITIN CBC w DIFF MANUAL DIFF FLAG WBC WBC ABSOLUTE NEUTROPHIL COUNT ABSOLUTE NEUTROPHIL COUNT RBC HEMOGLOBIN HEMATOCRIT MCV MCH MCHC PLATELET COUNT PLATELET COUNT RDW NEUTROPHILS LYMPHOCYTES MONOCYTES EOSINOPHILS BASOPHILS ABSOLUTE NEUTROPHIL COUNT ABSOLUTE LYMPHOCYTE COUNT ABSOLUTE MONOCYTE COUNT ABSOLUTE EOSINOPHIL COUNT ABSOLUTE BASOPHIL COUNT IG/BANDS BAND FLAG BLAST FLAG VARIANT LYMPHS DFLT N DFLT L DFLT M DFLT E DFLT B LRI URI MPV FWBC FLAG NRBC FLAG RRBC FLAG NWBC FLAG MPV FLAG CBC WITH AUTO DIFF 2014-11-28 WBC 9.0 4.8-10.8 RBC 4.4 3.8-4.8 HEMOGLOBIN 13.0 11.5-16.0 HEMATOCRIT 41.4 35-47 MCV 94.5 79-98 MCH 29.7 27-32 MCHC 31.4 32-37 RDW 15.7 11-15 PLT COUNT 403 130-400 MEAN PLATELET VOLUME 10.6 7-11 NEUT % 67 41-85 LYMPH % 24 15-48 MONO % 6 0-12 EOS % 3 0-5 BASO % 0 0-2 ABSOLUTE NEUT 6.1 >1.5 THERAPEUTIC PHLEBOTOMY ORDER 2014-11-05 HEMOGLOBIN Test not performed 04-01 HEMATOCRIT Test not performed 3747 THERAPEUTIC PHLEBOTOMY THER. PHLEBOTOMY CBC w/o DIFF 2014-11-05 WBC 8.8 4.8-10.8 RBC 5.08 4.20-5.50 HEMOGLOBIN 14.8 12.0-16.0 HEMATOCRIT 46.9 37-47 MCV 92.4 80-98 MCH 29.2 27.0-33.0 MCHC 31.6 31.0-35.0 PLATELET COUNT 377 160-400 RDW 14.7 11.0-16.0 THERAPEUTIC PHLEBOTOMY ORDER 2014-10-03 HEMOGLOBIN Test not performed 04-01 HEMATOCRIT Test not performed 3747 THERAPEUTIC PHLEBOTOMY THER. PHLEBOTOMY CBC w/o DIFF 2014-10-03 WBC 8.8 4.8-10.8 RBC 5.18 4.20-5.50 HEMOGLOBIN 15.4 12.0-16.0 HEMATOCRIT 49.0 37-47 MCV 94.7 80-98 MCH 29.6 27.0-33.0 MCHC 31.3 31.0-35.0 PLATELET COUNT 383 160-400 RDW 15.5 11.0-16.0 THERAPEUTIC PHLEBOTOMY ORDER 2014-09-03 HEMOGLOBIN Test not performed 04-01 HEMATOCRIT Test not performed 3747 THERAPEUTIC PHLEBOTOMY THER. PHLEBOTOMY CBC w/o DIFF 2014-09-03 WBC 9.2 4.8-10.8 RBC 5.38 4.20-5.50 HEMOGLOBIN 16.5 12.0-16.0 HEMATOCRIT 50.3 37-47 MCV 93.4 80-98 MCH 30.6 27.0-33.0 MCHC 32.8 31.0-35.0 PLATELET COUNT 287 160-400 RDW 16.1 11.0-16.0 CBC WITH AUTO DIFF 2014-09-01 WBC 6.3 4.8-10.8 RBC 5.6 3.8-4.8 HEMOGLOBIN 17.3 11.5-16.0 HEMATOCRIT 52.3 35-47 MCV 94.2 79-98 MCH 31.2 27-32 MCHC 33.1 32-37 RDW 17.2 11-15 PLT COUNT 322 130-400 MEAN PLATELET VOLUME 11.2 7-11 NEUT % 62 41-85 LYMPH % 25 15-48 MONO % 10 0-12 EOS % 2 0-5 BASO % 1 0-2 ABSOLUTE NEUT 3.9 >1.5 COMPREHENSIVE METABOLIC PANEL 2014-09-01 GLUCOSE 103 70-100 BUN 13 5-25 CREAT 0.84 0.5-1.1 GLOMERULAR FILTRATION RATE >60 SODIUM 143 133-145 POTASSIUM 4.7 3.5-5.5 CHLORIDE 108 96-110 CO2 26 21-32 ANION GAP 9 3-11 CALCIUM 9.3 8.5-10.5 TOTAL PROTEIN 7.5 6.0-8.0 ALBUMIN 4.3 3.2-5.0 BILI,TOTAL 0.4 0.0-1.4 SGOT 27 10-42 SGPT 22 10-60 ALK PHOS 78 42-121 CBC WITH AUTO DIFF 2014-06-10 WBC 8.7 4.8-10.8 RBC 5.1 3.8-4.8 HEMOGLOBIN 15.7 11.5-16.0 HEMATOCRIT 48.8 35-47 MCV 95.1 79-98 MCH 30.6 27-32 MCHC 32.2 32-37 RDW 16.7 11-15 PLT COUNT 352 130-400 MEAN PLATELET VOLUME 11.0 7-11 NEUT % 66 41-85 LYMPH % 24 15-48 MONO % 7 0-12 EOS % 3 0-5 BASO % 0 0-2 ABSOLUTE NEUT 5.7 >1.5 COMPREHENSIVE METABOLIC PANEL 2014-06-10 GLUCOSE 88 70-100 BUN 13 5-25 CREAT 0.75 0.5-1.1 GLOMERULAR FILTRATION RATE >60 SODIUM 143 133-145 POTASSIUM 4.2 3.5-5.5 CHLORIDE 110 96-110 CO2 25 21-32 ANION GAP 8 3-11 CALCIUM 9.1 8.5-10.5 TOTAL PROTEIN 7.0 6.0-8.0 ALBUMIN 4.1 3.2-5.0 BILI,TOTAL 0.4 0.0-1.4 SGOT 21 10-42 SGPT 16 10-60 ALK PHOS 80 42-121 CBC WITH AUTO DIFF 2014-03-07 WBC 9.8 4.8-10.8 RBC 5.2 3.8-4.8 HEMOGLOBIN 15.2 11.5-16.0 HEMATOCRIT 47.0 35-47 MCV 90.9 79-98 MCH 29.4 27-32 MCHC 32.3 32-37 RDW 18.1 11-15 PLT COUNT 350 130-400 MEAN PLATELET VOLUME 11.0 7-11 NEUT % 70 41-85 LYMPH % 19 15-48 MONO % 7 0-12 EOS % 3 0-5 BASO % 1 0-2 ABSOLUTE NEUT 6.9 >1.5 COMPREHENSIVE METABOLIC PANEL 2014-03-07 GLUCOSE 96 70-100 BUN 15 5-25 CREAT 0.77 0.5-1.1 GLOMERULAR FILTRATION RATE >60 SODIUM 138 133-145 POTASSIUM 4.3 3.5-5.5 CHLORIDE 108 96-110 CO2 24 21-32 ANION GAP 6 3-11 CALCIUM 9.3 8.5-10.5 TOTAL PROTEIN 7.3 6.0-8.0 ALBUMIN 4.3 3.2-5.0 BILI,TOTAL 0.4 0.0-1.4 SGOT 28 10-42 SGPT 23 10-60 ALK PHOS 78 42-121 FERRITIN 2014-03-07 FERRITIN 10 20-350 RETICULOCYTE COUNT 2014-03-07 # RETICULOCYTE COUNT 0.06 0.03-0. 09 % RETICULOCYTE COUNT 1.1 0.7-1.7 IMMATURE RETIC FRACTION 11.5 2.3- 15.9 RETIC HGB EQUIVALENT 35.7 >29 CBC WITH AUTO DIFF 2013-11-18 WBC 8.5 4.8-10.8 RBC 5.0 3.8-4.8 HEMOGLOBIN 14.0 11.5-16.0 HEMATOCRIT 44.3 35-47 MCV 88.6 79-98 MCH 28.0 27-32 MCHC 31.6 32-37 RDW 16.8 11-15 PLT COUNT 389 130-400 MEAN PLATELET VOLUME 10.0 7-11 NEUT % 65 41-85 LYMPH % 25 15-48 MONO % 7 0-12 EOS % 2 0-5 BASO % 1 0-2 ABSOLUTE NEUT 5.5 >1.5 THERAPEUTIC PHLEBOTOMY ORDER 2013-10-21 HEMOGLOBIN Test not performed 04-01 HEMATOCRIT Test not performed THERAPEUTIC PHLEBOTOMY Test not performed CBC w/o DIFF 2013-10-21 WBC 9.0 4.8-10.8 RBC 4.71 4.20-5.50 HEMOGLOBIN 13.6 12.0-16.0 HEMATOCRIT 41.5 37-47 MCV 88.1 80-98 MCH 28.8 27.0-33.0 MCHC 32.7 31.0-35.0 PLATELET COUNT 360 160-400 RDW 14.9 11.0-16.0 THERAPEUTIC PHLEBOTOMY ORDER 2013-08-19 HEMOGLOBIN Test not performed 04-01 HEMATOCRIT Test not performed THERAPEUTIC PHLEBOTOMY THER. PHLEBOTOMY CBC w/o DIFF 2013-08-19 WBC 9.1 4.8-10.8 RBC 4.78 4.20-5.50 HEMOGLOBIN 15.3 12.0-16.0 HEMATOCRIT 46.1 37-47 MCV 96.4 80-98 MCH 32.0 27.0-33.0 MCHC 33.2 31.0-35.0 PLATELET COUNT 350 160-400 RDW 15.2 11.0-16.0 THERAPEUTIC PHLEBOTOMY ORDER 2013-07-22 HEMOGLOBIN Test not performed 04-01 HEMATOCRIT Test not performed THERAPEUTIC PHLEBOTOMY THER. PHLEBOTOMY CBC w/o DIFF 2013-07-22 WBC 9.7 4.8-10.8 RBC 5.32 4.20-5.50 HEMOGLOBIN 16.8 12.0-16.0 HEMATOCRIT 50.6 37-47 MCV 95.1 80-98 MCH 31.7 27.0-33.0 MCHC 33.3 31.0-35.0 PLATELET COUNT 341 160-400 RDW 15.9 11.0-16.0 PROFILE, RANDOM (COMPREHENSI VE METABOLIC) 2013-07-13 NA 139 135-145 K 4.4 3.3-5.1 CL 108 96-108 CO2 22 22-29 ANION GAP 13 12-20 GLUCOSE,RANDOM 96 60-115 BUN 10 9-16 CREATININE 0.80 0.5-1.4 ESTIMATED GFR >60 PROTEIN, TOTAL 7.1 6.5-8.0 ALBUMIN 4.0 3.5-5.0 BILIRUBIN, TOTAL 0.8 0.0-1.0 CALCIUM 9.1 8.4-10.2 ALK. PHOS. 72 39-117 GOT 16 <3-31 GPT 15 <6-31 FOLATE 2013-07-13 FOLATE 2.9 >OR = 4.0 CBC w DIFF 2013-07-13 WBC 6.1 4.8-10.8 ABSOLUTE NEUTROPHIL COUNT 3.7 2. 2-7.9 RBC 5.29 4.20-5.50 HEMOGLOBIN 16.6 12.0-16.0 HEMATOCRIT 51.0 37-47 MCV 96.3 80-98 MCH 31.3 27.0-33.0 MCHC 32.6 31.0-35.0 PLATELET COUNT 320 160-400 RDW 16.1 11.0-16.0 NEUTROPHILS 60.5 45-73 LYMPHOCYTES 26.0 20-40 MONOCYTES 9.3 2-11 EOSINOPHILS 2.6 0-4 BASOPHILS 1.6 0-2 THERAPEUTIC PHLEBOTOMY ORDER 2013-03-11 HEMOGLOBIN Test not performed 04-01 HEMATOCRIT Test not performed THERAPEUTIC PHLEBOTOMY THER. PHLEBOTOMY CBC w/o DIFF 2013-03-11 WBC 8.9 4.8-10.8 RBC 5.06 4.20-5.50 HEMOGLOBIN 16.9 12.0-16.0 HEMATOCRIT 52.6 37-47 MCV 104.0 80-98 MCH 33.4 27.0-33.0 MCHC 32.1 31.0-35.0 PLATELET COUNT 367 160-400 RDW 13.7 11.0-16.0 THERAPEUTIC PHLEBOTOMY ORDER 2013-02-11 HEMOGLOBIN Test not performed 04-01 HEMATOCRIT Test not performed THERAPEUTIC PHLEBOTOMY THER. PHLEBOTOMY CBC w/o DIFF 2013-02-11 WBC 8.1 4.8-10.8 RBC 5.04 4.20-5.50 HEMOGLOBIN 18.5 12.0-16.0 HEMATOCRIT 54.1 37-47 MCV 107.2 80-98 MCH 36.6 27.0-33.0 MCHC 34.2 31.0-35.0 PLATELET COUNT 309 160-400 RDW 14.5 11.0-16.0 THERAPEUTIC PHLEBOTOMY ORDER 2013-01-03 HEMOGLOBIN Test not performed 04-01 HEMATOCRIT Test not performed THERAPEUTIC PHLEBOTOMY THER. PHLEBOTOMY CBC w/o DIFF 2013-01-03 WBC 8.9 4.8-10.8 RBC 5.20 4.20-5.50 HEMOGLOBIN 18.7 12.0-16.0 HEMATOCRIT 54.4 37-47 MCV 104.6 80-98 MCH 35.9 27.0-33.0 MCHC 34.4 31.0-35.0 PLATELET COUNT 309 160-400 RDW 14.6 11.0-16.0 CBC w DIFF 2012-12-11 WBC 8.4 4.8-10.8 ABSOLUTE NEUTROPHIL COUNT 6.0 2. 2-7.9 RBC 5.17 4.20-5.50 HEMOGLOBIN 17.7 12.0-16.0 HEMATOCRIT 53.1 37-47 MCV 102.7 80-98 MCH 34.2 27.0-33.0 MCHC 33.2 31.0-35.0 PLATELET COUNT 322 160-400 RDW 13.8 11.0-16.0 NEUTROPHILS 70.8 45-73 LYMPHOCYTES 18.6 20-40 MONOCYTES 7.4 2-11 EOSINOPHILS 2.1 0-4 BASOPHILS 1.1 0-2 THERAPEUTIC PHLEBOTOMY ORDER 2012-12-04 HEMOGLOBIN Test not performed 04-01 HEMATOCRIT Test not performed 3747 THERAPEUTIC PHLEBOTOMY THER. PHLEBOTOMY CBC w/o DIFF 2012-12-04 WBC 10.5 4.8-10.8 RBC 5.69 4.20-5.50 HEMOGLOBIN 19.8 12.0-16.0 HEMATOCRIT 59.2 37-47 MCV 104.0 80-98 MCH 34.8 27.0-33.0 MCHC 33.5 31.0-35.0 PLATELET COUNT 314 160-400 RDW 14.3 11.0-16.0 DIFFERENTIAL,MANUAL 2012-11-26 ABSOLUTE NEUTROPHIL COUNT 4.7 2. 2-7.9 SEGS 65 45-73 BANDS 4 3-5 LYMPHOCYTES 20 20-40 VARIANT LYMPHS 2 0-6 MONOCYTES 7 2-11 EOSINOPHILS 2 0-4 PLATELET ESTIMATE NORMAL NORMAL PLATELET MORPHOLOGY NORMAL NORMAL RBC MORPHOLOGY 1+ ANISO NORMAL RBC MORPHOLOGY 1+ MACRO NORMAL RBC MORPHOLOGY 1+ POLY NORMAL CBC w/o DIFF 2012-11-26 WBC 6.6 4.8-10.8 RBC 5.58 4.20-5.50 HEMOGLOBIN 19.1 12.0-16.0 HEMATOCRIT 58.2 37-47 MCV 104.2 80-98 MCH 34.2 27.0-33.0 MCHC 32.8 31.0-35.0 PLATELET COUNT 277 160-400 RDW 14.9 11.0-16.0 ERYTHROPOIETIN 2012-11-26 ERYTHROPOIETIN 5.7 2.6-18.5 US ABD 2012-11-26 US PELVIS 2012-11-26 REASON FOR VISIT Follow-up, Erythrocytosis, Carcinoma of the left breast, Obesity, Tobacco dependence, Erythrocytosis, Iron deficiency , Malignant neoplasm of upper-outer quadrant of left female breast, Obesity, Tobacco dependence, Followup, Followup, Right peritonsillar abscess, Erythrocytosis, Lobular carcinoma, right breast, stage I, Obesity, Tobacco dependence, Iron deficiency, Right peritonsillar abscess, Left breast cancer, Erythrocytosis, Erythrocytosis, Carcinoma the left breast, Obesity, Tobacco dependence, Right peritonsillar abscess, Followup, Carcinoma of the left breast, Iron deficiency, Tobacco dependence, Erythrocytosis, Order request, Erythrocytosis, iron decifiency, obesity, Malignant Neoplasm Left breast, breast cancer, erythrocytosis, breast cancer, breast cancer, iron deficiency, obesity, tobacco dependence, erythrocytosis, needs new order for her Phlebotomy at , left breast cancer, obesity, iron deficiency, erythrocytosis, breast cancer , obesity, tobacco dependence, polycythemia, left breast cancer, breast cancer , polycythemia vera, obesity, tobacco dependence, breast cancer , breast cancer , obesity, polycythemia vera, breast cancer , breast cancer , breast cancer , irondeficiency anemia, tobacco dependence, polycythemia vera, breast cancer , Appt with Dr. Mehta, breast cancer , polycythemia, obesity, therapeutic phlebotomy, FMLA paperwork, breast cancer , polycythemia vera, Onco Type DX faxed to Dr Green, polycythemia vera, early breast cancer, speak with , breast cancer, Wants appt for New Dx, polycythemia vera, polycythemia vera, polycythemia vera,polycythemia vera, polycythemia vera, Raynaud's syndrome, blue finger tips, polycythemia vera, polycythemia vera, polycythemia vera, polycythemia vera, polycythemia vera, CHANGED APPT, polycythemia vera, appt for phlebotomy at , polycythemia vera, polycythemia vera, rescheduled this appt, Question on lab work, polycythemia vera, polycythemia vera, polycythemia vera, pt needs lab sheet faxed toher, polycythemia vera, cancelled appt for today, polycythemia vera, Lab form, pt cancelled appt for today at 3:30pm, appt for phlebotomy at , erythrocytosis, polycythemia vera, headaches, erythrocytosis, headache, erythrocytosis, appt for phlebotomy at , polycythemia vera, polycythemia vera, polycythemia vera, labs from 12/11/2012, ELEVATED HEMOGLOBIN, erythrocytosis, THERAPEUTIC PHLEBOTOMY,appt U/S, erythrocytosis, erythrocytosis, erythrocytosis, missed appt 10/11, erythtocytosis, 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, elevated hematocrit, 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, 08/06/2011 blood work results, 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 Insurance Providers Health Insurance Type Health Plan Insurance Address Health Plan Insurance Phone Health Plan Insurance Name Health Plan Coverage Dates Member ID Patient Relationship to Subscriber Patient Address Patient Phone Patient Name Patient Date of Subscriber ID Subscriber Name Subscriber Date of Group [facility] [address] [place] [address] [facility] self Larisa Dee [id number] [employer] [facility] [address] [facility] [address] [employer] [facility] self Larisa Luiz [id number]
--- OUTSIDE RECORDS SUMMARY | 2022-09-19 21:32 | XMS_ITS ---
Author Name Tevin Hayes Jr Address [address] [place] [address] Organization [facility] Address [address] [place] [address] Care Team Providers Care Network Administrator Name Role Phone Freddy SidTevin Unavailable PROBLEMS Unknown Problems ALLERGIES No Information ENCOUNTERS Encounter Location Date Diagnosis [facility] [address] [place] [address] Jul, [facility] [address] [place] [address] August, [facility] Outpatient [address], [place] [id number] Jul, [facility] ER [address], [place] [id number] Apr, IMMUNIZATIONS No Known Immunizations SOCIAL HISTORY Never Assessed REASON FOR REFERRAL FUNCTIONAL STATUS PLAN OF CARE Activity Details VITAL SIGNS MEDICATIONS Unknown Medications PROCEDURES No Known procedures RESULTS No Results REASON FOR VISIT SCREENING COLON, Patient presents today for a SCREENING COLON, R/S OV, appointment Insurance Providers Health Insurance Type Health Plan Insurance Address Health Plan Insurance Phone Health Plan Insurance Name Health Plan Coverage Dates Member ID Patient Relationship to Subscriber Patient Address Patient Phone Patient Name Patient Date of Subscriber ID Subscriber Name Subscriber Date of Group No [employer] (No Referral) [address] [address] [facility] [id number] [employer] (No Referral) self PIYUSH HERRERA [id number] [place] OF [place] [address] [facility] [address] [place] self PIYUSH HERRERA [id number]
[2022-09-19 21:34] LABS: Basophils Percent Auto 0.3 % (0-2); Eosinophils Absolute Auto 0.2 X10*3/uL (0.0-0.4); Eosinophils Percent Auto 1.1 % (0-4); Hematocrit 43.6 % (37.0-47.0); Hemoglobin 14.3 g/dl (12.0-16.0); Imm Gran Abs Auto 0.05 X10*3/uL (0.00-0.03); Imm Gran Pct Auto 0.3 % (0.0-0.4); Lymphocytes Absolute Auto 1.3 X10*3/uL (1.2-4.9); Lymphocytes Percent Auto 8.4 % (20-40); Mean Corpuscular HGB Conc 32.8 g/dl (31.0-35.0); Mean Corpuscular Hemoglobin 32.3 pg (27.0-33.0); Mean Corpuscular Volume 98.4 fL (80.0-98.0); Mean Platelet Volume 9.6 fL (9.4-12.3); Monocytes Absolute Auto 1.2 X10*3/uL (0.1-1.2); Monocytes Percent Auto 7.8 % (2-11); Neutrophils Absolute Auto 12.4 x10*3/uL (2.0-8.3); Neutrophils Percent Auto 82.1 % (45-73); Platelet Count 356 X10*3/uL (160-400); Red Blood Count 4.43 X10*6/uL (4.20-5.50); White Blood Count 15.1 X10*3/uL (4.8-10.8)
[2022-09-19 21:35] LABS: Appearance Urine Cloudy; Color Urine Yellow; Glucose Urine UA Negative (Negative); Leukocyte Esterase Urine Trace (Negative); Nitrite Urine Negative (Negative); PH 8.5 (5.0-9.0); Specific Gravity - Urine 1.015 (1.005-1.025); UMIC TRIGGER UACC YES; Urine Blood Negative (Negative); Urine Ketones Trace mg/dL (Negative); Urine Protein Negative (Neg-Trace)
[2022-09-19 21:40] LABS: Bacteria Urine 3+ (None Seen); Hyaline Casts Urine 0-2 /LPF (0-2); RBC Urine 0-2 /HPF (0-2); Squamous Epithelial Cell Urine >20 /HPF (0-2); WBC Urine 0-5 /HPF (0-5)
[2022-09-19 21:54] LABS: Alanine Aminotransferase 18 U/L (0-31); Albumin Level 4.1 g/dL (3.5-5.0); Alkaline Phosphatase 83 U/L (39-117); Anion Gap 14 (12-20); Aspartate Amino Transferase 22 U/L (5-31); Bilirubin Direct 0.4 mg/dL (0.0-0.5); Bilirubin Total 1.2 mg/dL (0.0-1.0); Blood Urea Nitrogen 14 mg/dL (9-16); Carbon Dioxide 25 mmol/L (22-29); Chloride 103 mmol/L (96-108); Creatinine Clr Calc Pharmacy 79.5; Estimated Glomerular Filt Rate > 60; Glucose Random 112 mg/dL (60-115); Lipase 16 U/L (8-78); Potassium 4.4 mmol/L (3.3-5.1); Sodium 138 mmol/L (135-145); Total Protein 7.5 g/dL (6.5-8.0)
[2022-09-20] VITALS (19 sets, daily range): BP systolic 107–156; BP diastolic 45–74; PULSE 70–93; RESP 14–19; TEMP 36–37.1; O2SAT 90–99
--- NOTE | 2022-09-20 01:45 | ED.ABDPAIN ---
HPI - Abdominal Pain General Chief Complaint: Abdominal Pain Stated Complaint: abd pain Time Seen by Provider: 09/20/22 01:07 History of Present Illness HPI narrative: Patient is a 67-year-old female presents today with having abdominal pain. The abdominal pain is worse over the epigastric area and right upper quadrant she has been having these abdominal pain on and off usually goes away by itself. Patient took some pot roast along with some potato chips the night before. Subsequently been having abdominal pain in that area for the last 24 hours. There is no chest pain is no shortness of breath there is no diaphoresis. The pain is localized. It is dull. It is associated with nausea. No vomiting. No difficulty with bowel movement. Patient from home. No pain on urination. Related Data Home Medications Medication Instructions Recorded Confirmed anastrozole 1 mg tablet 1 mg PO DAILY 03/24/20 10/06/21 lorazepam 1 mg tablet 1 mg PO DAILY PRN Anxiety 03/24/20 10/06/21 albuterol sulfate 90 mcg/actuation 2 puff inhalation QID 10/06/21 10/06/21 aerosol inhaler cyanocobalamin (vitamin B-12) 50 50 mcg PO DAILY 10/06/21 10/06/21 mcg tablet diclofenac sodium 75 mg 1 tab PO BID 10/06/21 10/06/21 tablet,delayed release fluticasone propionate 110 2 puff PO BID 10/06/21 10/06/21 mcg/actuation HFA aerosol inhaler (Flovent HFA) losartan 100 1 tab PO DAILY 10/06/21 10/06/21 mg-hydrochlorothiazide 25 mg tablet pravastatin 80 mg tablet 1 tab PO BEDTIME 10/06/21 10/06/21 Previous Rx's Medication Instructions Recorded ibuprofen 600 mg tablet 600 mg PO Q6H PRN pain #30 tabs 10/06/21 amoxicillin 875 mg-potassium 1 tab PO BID #14 tabs 10/08/21 clavulanate 125 mg tablet dexamethasone 1 mg tablet See Rx Instructions .Route 10/08/21 .COMPLEX #10 tabs nicotine (polacrilex) 2 mg gum 2 mg buccal Q2H PRN nicotine 10/08/21 cravings #100 ea Allergies Allergy/AdvReac Type Severity Reaction Status Date / Time gluten [Gluten] Allergy Unknown UNKNOWN Verified 03/24/20 14:51 egg [Egg] AdvReac Mild NAUSEA Verified 03/24/20 14:51 ENVIRONMENTAL Allergy Unknown UNKNOWN Uncoded 01/02/20 16:40 Review of Systems Review of Systems Positive abdominal pain Yes all other systems are reviewed and are negative [facility] Past Medical History Attestation statement: The following information was validated with the patient. Medical History History of left breast cancer Hypercholesterolemia Hypertension Surgical History History of lumpectomy of left breast History of lymph node excision Social History Social History Household Members: Significant Other Housing: House Do you presently have visiting nurse or other home services: No Alcohol intake: current Alcohol intake frequency: a few times a week Patient Tobacco Use Status: Current someday Tobacco user Tobacco use type: Cigarette Cigarettes Per Day: 2 Smoked in Last 30 Days: Yes Use of substances other than those prescribed or required for medical reasons: No Advance Directives: No Advance Directives Information Provided: Yes service: No Current occupational status: employed Physical Exam ED Vital Signs: Vital Signs - 24 hr 09/19/22 17:57 09/19/22 21:25 09/20/22 00:24 Temperature 97.0 F 98.0 F 98.7 F Pulse Rate 73 84 77 Respiratory Rate 18 18 18 Blood Pressure 143/61 H 141/66 H 139/59 L Pulse Oximetry 97 98 97 Oxygen Delivery Method Room Air Room Air Room Air 09/20/22 00:25 Temperature Pulse Rate 77 Respiratory Rate 19 Blood Pressure 139/59 L Pulse Oximetry 94 Oxygen Delivery Method Room Air BMI result Body Mass Index 38.8 Appearance: Alert. Oriented X3. No acute distress. Eyes: Pupils equal, round and reactive to light. ENT: Pharynx normal. Neck: Normal inspection. Neck supple. No lymph nodes noted. No crepitus CVS: Normal heart rate and rhythm. Pulses normal. Normal S1 and S2 Respiratory: No respiratory distress. Breath sounds normal. No Wheezing. No rales Abdomen: Soft and nontender. No rigidity. No distention. good BS x4 Skin: Skin warm and dry. Normal skin color. Normal skin turgor. Extremities: No lower extremity edema. Neurovascular intact to all extremities. No Lacerations. No Rash Neuro: Oriented X 3. No motor deficit. No sensory deficit. Moving all extermities. No slurred speech Medical Decision Making Medical Decision Making [facility] Narrative: Positive abdominal pain in the right upper quadrant after fatty foods. Consistent with having biliary colic/cholecystitis. Patient's lipase was normal. No evidence for pancreatitis. CT scan of the abdomen pelvis positive for having inflammation around the gallbladder with gallbladder wall thickening pericholecystic fluid consistent with cholecystitis. However patient's LFTs were essentially normal except for an elevated bili. Patient's case discussed with Dr. Cameron from surgery. Patient's symptoms unlikely secondary to ACS. History and symptoms not consistent with diverticulitis/abscess/perforation. Antibiotic was started. Patient's case consulted by surgery. Will admit for further evaluation Differential Diagnosis Cholecystitis Consult Healthcare Provider Management of the patient was discussed with: Senior Planning Manager Dr. Cameron from surgery Lab Data [facility] Lab Attestation statement: I reviewed the patient's lab results. 09/19/22 21:28 09/19/22 21:28 Labs: Lab Results 09/19/22 09/19/22 09/19/22 Range/Units 21:28 21:28 21:28 WBC 15.1 H (4.8-10.8) X10*3/uL RBC 4.43 (4.20-5.50) X10*6/uL Hgb 14.3 (12.0-16.0) g/dl Hct 43.6 (37.0-47.0) % MCV 98.4 H (80.0-98.0) fL MCH 32.3 (27.0-33.0) pg MCHC 32.8 (31.0-35.0) g/dl RDW 15.0 (11.0-16.0) % Plt Count 356 (160-400) X10*3/uL MPV 9.6 (9.4-12.3) fL Immature Gran % (Auto) 0.3 (0.0-0.4) % Neut % (Auto) 82.1 H (45-73) % Lymph % (Auto) 8.4 L (20-40) % [place] % (Auto) 7.8 (2-11) % Eos % (Auto) 1.1 (0-4) % Baso % (Auto) 0.3 (0-2) % Lymph # (Auto) 1.3 (1.2-4.9) X10*3/uL [place] # (Auto) 1.2 (0.1-1.2) X10*3/uL Eos # (Auto) 0.2 (0.0-0.4) X10*3/uL Baso # (Auto) 0.0 (0.0-0.2) X10*3/uL Abs Immat Gran (auto) 0.05 H (0.00-0.03) X10*3/uL Absolute Neuts (auto) 12.4 H (2.0-8.3) x10*3/uL Absolute Nucleated RBC 0.000 (0.0-0.012) X10*3/uL Nucleated RBC % (auto) 0.0 (0.0-0.2) /100WBC Sodium 138 (135-145) mmol/L Potassium 4.4 (3.3-5.1) mmol/L Chloride 103 (96-108) mmol/L Carbon Dioxide 25 (22-29) mmol/L Anion Gap 14 (12-20) BUN 14 (9-16) mg/dL Creatinine 0.84 (0.5-1.4) mg/dL Estim Creat Clear Calc 79.5 Estimated GFR > 60 Random Glucose 112 (60-115) mg/dL Calcium 10.0 D (8.4-10.2) mg/dL Total Bilirubin 1.2 H (0.0-1.0) mg/dL Direct Bilirubin 0.4 (0.0-0.5) mg/dL AST 22 (5-31) U/L ALT 18 (0-31) U/L Alkaline Phosphatase 83 (39-117) U/L Total Protein 7.5 (6.5-8.0) g/dL Albumin 4.1 (3.5-5.0) g/dL Lipase 16 (8-78) U/L Urine Color Yellow Urine Appearance Cloudy Urine pH 8.5 (5.0-9.0) Ur Specific [place] 1.015 (1.005-1.025) Urine Protein Negative (Neg-Trace) mg/dL Urine Glucose (UA) Negative (Negative) mg/dL Urine Ketones Trace (Negative) mg/dL Urine Blood Negative (Negative) Urine Nitrite Negative (Negative) Ur Leukocyte Esterase Trace H (Negative) Urine RBC 0-2 (0-2) /HPF Urine WBC 0-5 (0-5) /HPF Ur Squamous Epith Cells >20 (0-2) /HPF Urine Bacteria 3+ (None Seen) Hyaline Casts 0-2 (0-2) /LPF Discharge Plan Discharge Clinical Impression: Acute cholecystitis due to biliary calculus Patient Disposition: Admitted As Inpatient Prescriptions: No Action ibuprofen 600 mg tablet 600 mg PO Q6H PRN (Reason: pain) Qty: 30 0RF losartan-hydrochlorothiazide 100-25 mg tablet 1 tab PO DAILY pravastatin 80 mg tablet 1 tab PO BEDTIME fluticasone propionate [Flovent HFA] 110 mcg/actuation HFA aerosol inhaler 2 puff PO BID diclofenac sodium 75 mg tablet,delayed release (DR/EC) 1 tab PO BID Patient Comments: Patient says its for twice a day but she really only takes it as needed cyanocobalamin (vitamin B-12) 50 mcg Tablet 50 mcg PO DAILY albuterol sulfate 90 mcg/actuation HFA aerosol inhaler 2 puff inhalation QID amoxicillin-pot clavulanate 875-125 mg tablet 1 tab PO BID Qty: 14 0RF dexamethasone 1 mg tablet See Rx Instructions .ROUTE .COMPLEX Qty: 10 0RF Rx Instructions: 4 mg on 10/09, then 3 mg on 10/10, then 2 mg on 10/11, then 1 mg on 10/12 nicotine (polacrilex) 2 mg gum 2 mg buccal Q2H PRN (Reason: nicotine cravings) Qty: 100 0RF anastrozole 1 mg tablet 1 mg PO DAILY lorazepam 1 mg tablet 1 mg PO DAILY PRN (Reason: Anxiety)
--- NOTE | 2022-09-20 01:58 | PM.HPGS ---
History of Present Illness History of Present Illness Date of Service: 09/20/22 Chief complaint: acute cholecysytitis Narrative: Larisa Dee is a 67 year old female presenting with complaints of abdominal pain in the Right lower quadrant of 24 hours duration. Pain began after eating roast beef with potato chips. She reports a long history of GI upset and was previously diagnosed with reflux and celiac disease. The current episode is the worst in longest lasting episode and was felt mainly in the right upper quadrant with radiation to the back. She also reports nausea and vomiting. She subsequently presented to the emergency department and was noted to be tender in the right upper quadrant. CT abdomen and pelvis revealed a distended gallbladder with calcified gallstones, surrounding inflammation and pericholecystic fluid suggestive of acute cholecystitis. Laboratories revealed elevated WBC and bilirubin with normal transaminases. She was admitted to the surgical service for management of this acute cholecystitis. Review of Systems Review of Systems: Yes all other systems are reviewed and are negative Constitutional: Constitutional: Denies chills, Denies fever(s), Denies headache(s), Reports poor appetite and Denies weakness ENT: Denies headache(s) Cardiovascular: Cardiovascular: Denies chest pain, Denies irregular heart rhythm, Denies palpitations and Reports dyspnea Respiratory: Respiratory: Reports cough, Denies excessive phlegm production and Reports dyspnea Gastrointestinal: Gastrointestinal: Reports abdominal pain, Denies bloating, Denies change in bowel habits, Denies constipation, Denies heartburn, Denies diarrhea, Reports nausea and Reports vomiting Genitourinary: Genitourinary: Denies urinary frequency Musculoskeletal: Musculoskeletal: Denies back pain, Denies muscle weakness and Denies numbness Integumentary/Breasts: Skin/Breast: Denies changing lesions and Denies unusual bruising Neurologic: Denies headache(s), Denies numbness, Denies paresthesias and Denies weakness Psychiatric: Psychiatric: Denies anxiety and Denies depression Endocrine: Endocrine: Denies palpitations Hematologic/Lymphatic: Hematologic/Lymphatic: Denies lymphadenopathy PMFSH Past Medical History Medical History History of left breast cancer Hypercholesterolemia Hypertension Surgical History Surgical History History of lumpectomy of left breast History of lymph node excision Social History Social History Household Members: Significant Other Housing: House Do you presently have visiting nurse or other home services: No Alcohol intake: current Alcohol intake frequency: a few times a week Patient Tobacco Use Status: Never used Tobacco Tobacco use type: Cigarette Cigarettes Per Day: 2 Smoked in Last 30 Days: Yes Use of substances other than those prescribed or required for medical reasons: No Advance Directives: No Advance Directives Information Provided: Yes Nutrition Risks: No Nutritional Risk service: No Current occupational status: employed Meds Allergies Allergy/AdvReac Type Severity Reaction Status Date / Time gluten [Gluten] Allergy Unknown UNKNOWN Verified 03/24/20 14:51 egg [Egg] AdvReac Mild NAUSEA Verified 03/24/20 14:51 ENVIRONMENTAL Allergy Unknown UNKNOWN Uncoded 01/02/20 16:40 Active Medications: Current Medications Sodium Chloride (Ns) 1,000 mls @ 999 mls/hr IV .Q1H1M SLIM Stop: 09/20/22 03:00 Ceftriaxone Sodium 2 gm/ (Sodium Chloride) 50 mls @ 100 mls/hr IV ONCE ONE Stop: 09/20/22 02:16 Metronidazole (Flagyl) 500 mg in 100 mls @ 100 mls/hr IV ONCE ONE Stop: 09/20/22 02:46 Home Medications Medication Instructions Recorded Confirmed Last Taken Type anastrozole 1 mg tablet 1 mg PO DAILY 03/24/20 10/06/21 10/05/21 History lorazepam 1 mg tablet 1 mg PO DAILY PRN Anxiety 03/24/20 10/06/21 10/05/21 History albuterol sulfate 90 mcg/actuation 2 puff inhalation QID 10/06/21 10/06/21 10/05/21 History aerosol inhaler cyanocobalamin (vitamin B-12) 50 50 mcg PO DAILY 10/06/21 10/06/21 10/05/21 History mcg tablet fluticasone propionate 110 2 puff PO BID 10/06/21 10/06/21 10/05/21 History mcg/actuation HFA aerosol inhaler (Flovent HFA) losartan 100 1 tab PO DAILY 10/06/21 10/06/21 10/05/21 History mg-hydrochlorothiazide 25 mg tablet pravastatin 80 mg tablet 1 tab PO BEDTIME 10/06/21 10/06/21 10/05/21 History Physical Exam Vital Signs: Vital Signs: Last Vital Signs Temp 98.7 F 09/20/22 00:24 Pulse 77 09/20/22 00:25 Resp 19 09/20/22 00:25 BP 139/59 L 09/20/22 00:25 Pulse Ox 94 09/20/22 00:25 O2 Del Method Room Air 09/20/22 00:25 BMI result Body Mass Index 38.8 Const: General: cooperative and no acute distress Nutritional Appearance: well nourished Orientation/consciousness: patient oriented x3 Limitations: no limitations HEENT: Head: Yes normocephalic and Yes atraumatic Ears: hearing grossly normal bilaterally Resp: Effort & Inspection: normal respiratory effort, no audible wheezes, no cough and no respiratory distress Cardio: Jugular venous distension: no JVD GI: Inspection: Yes normal to inspection and Yes Abdominal panniculus present Palpation (GI): Soft to palpation, Tenderness to palpation present (GI) in the RUQ; [place]'s sign negative and with no rebound tenderness, no guarding and not rigid Percussion: Yes normal to percussion Auscultation: normal bowel sounds Skin: Other: Warm, dry, no rash Neuro: General: patient oriented x3 Extrem: General: Yes no clubbing, cyanosis or edema Results Results Labs: Short CBC 09/19/22 Range/Units 21:28 WBC 15.1 H (4.8-10.8) X10*3/uL Hgb 14.3 (12.0-16.0) g/dl Hct 43.6 (37.0-47.0) % Plt Count 356 (160-400) X10*3/uL BMP 09/19/22 21:28 Sodium 138 Potassium 4.4 Chloride 103 Carbon Dioxide 25 BUN 14 Creatinine 0.84 Calcium 10.0 D Liver Function 09/19/22 Range/Units 21:28 Total Bilirubin 1.2 H (0.0-1.0) mg/dL Direct Bilirubin 0.4 (0.0-0.5) mg/dL AST 22 (5-31) U/L ALT 18 (0-31) U/L Alkaline Phosphatase 83 (39-117) U/L Albumin 4.1 (3.5-5.0) g/dL Urine 09/19/22 Range/Units 21:28 Urine Color Yellow Urine Appearance Cloudy Urine pH 8.5 (5.0-9.0) Ur Specific [place] 1.015 (1.005-1.025) Urine Protein Negative (Neg-Trace) mg/dL Urine Glucose (UA) Negative (Negative) mg/dL Assessment and Plan (1) Acute cholecystitis due to biliary calculus: Status: Acute Plan 67-year-old female patient presenting with complaints of abdominal pain in the right upper quadrant lasting approximately 24 hours. Pain is associated with nausea and vomiting. Patient was found to have elevated bilirubin level but normal transaminases. CT abdomen and pelvis is consistent with acute cholecystitis. We discussed the options of non operative management with diet restrictions verses laparoscopic or possible open cholecystectomy. Patient wishes to proceed with surgery. After discussion of the procedure, risks, and alternatives, she consents to a laparoscopic or possible open cholecystectomy. This will be added onto the OR schedule for today. Time Spent With Patient Time: Total time managing care of this patient today ____ minutes. Quality Stroke Does the patient have a stroke diagnosis?: No VTE Prior VTE?: No VTE Risk Level:: Surgical - moderate VTE Device Contraindication: N/A - Device Ordered VTE Drug Contraindication: Treatment Not Indicated Procedures Date of Service Date of Service: 09/20/22
[2022-09-20] MEDS: 0.9 % Sodium Chloride 1,000 ML 999 ML IV (02:07)
[2022-09-20] MEDS: HYDROmorphone HCl 0.5 MG/0.5 ML SYRINGE IVPUSH ×2 (02:08→14:55)
[2022-09-20] MEDS: ondansetron HCL 4 MG/2 ML VIAL IVPUSH (02:09)
[2022-09-20] MEDS: metroNIDAZOLE/NS 500 MG/100 ML PIGGYBACK 100 MG IV (02:09)
[2022-09-20] MEDS: cefTRIAXone sodium 2 GM in 0.9 % Sodium Chloride 50 ML IV (02:10)
--- NOTE | 2022-09-20 02:10 | PC.NURSE ---
Went into room for Low O2 sat alarm. Patient stated that the Dilaudid is making her sleepy. Patent 02 sat reading was 88%. Patient placed on 2L O2/NC and Dr. Nguyen notified. No Further orders at this time.
--- OUTSIDE RECORDS SUMMARY | 2022-09-20 02:32 | XMS_ITS ---
Author Name Tevin Hayes Jr Address [address] [place] [address] 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 [address] [place] [address] Jul, [facility] [address] [place] [address] August, [facility] Outpatient [address], [place] [id number] Jul, [facility] ER [address], [place] [id number] Apr, IMMUNIZATIONS No Known Immunizations SOCIAL HISTORY [...] Group No [employer] (No Referral) [address] [address] [facility] [id number] [employer] (No Referral) self PIYUSH HERRERA [id number] [place] OF [place] [address] [facility] [address] [place] self PIYUSH HERRERA [id number]
--- OUTSIDE RECORDS SUMMARY | 2022-09-20 02:32 | XMS_ITS ---
Author Name Rajinder Guerrero Address [address] [place] [address] Organization Rajinder Guerrero III, MD Address [address] [place] [address] Care Team Providers Care Wallpaper Scraper Name Role Phone Rajinder Guerrero [facility] [phone] PROBLEMS Type Condition ICD9-CM Code CEA29-XY Code Onset Dates Condition Status SNOMED Code Problem Celiac disease K90.0 Active 072837691 Problem Iron deficiency E61.1 Active 72305605 Problem Lobular carcinoma of left breast, stage 1 C50.912 Active 720036691 Problem Malignant neoplasm of upper-outer quadrant of left female breast, 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 Active 562214463 Problem Erythrocytosis D75.1 Active 269503042 Problem Tobacco dependence F17.200 Active 25426 005 Problem Obesity E66.9 Active 481323248 Problem Raynaud's syndrome without gangrene I73.00 Active 590234355 Problem Post-menopausal Z78.0 Active 48963767 ALLERGIES No Known Allergies ENCOUNTERS Encounter Location Date Diagnosis Rajinder Guerrero III, MD [address] [place] [address] [place] [address] Jul, Iron deficiency E61.1 ; Obesity E66.9 ; Tobacco dependence F17.200 ; Malignant neoplasm of upper-outer quadrant of left female breast, 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 ; Lobular carcinoma of left breast, stage 1 C50.912 and Erythrocytosis D75.1 Rajinder Guerrero III, MD [address] [place] [address] [place] [address] Mar, Iron deficiency E61.1 ; Malignant neoplasm of upper-outer quadrant of left female breast, 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 ; Celiac disease K90.0 ; Obesity E66.9 ; Tobacco dependence F17.200 ; Raynaud's syndrome without gangrene I73.00 ; Lobular carcinoma of left breast, stage 1 C50.912 and Erythrocytosis D75.1 Rajinder Guerrero III, MD [address] [place] [address] [place] [address] Oct, Malignant neoplasm of upper-outer quadrant of left female breast, 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 ; Iron deficiency E61.1 ; Celiac disease K90.0 ; Obesity E66.9 ; Tobacco dependence F17.200 ; Erythrocytosis D75.1 and Tonsillar abscess J36 Rajinder Guerrero III, MD [address] [place] [address] [place] [address] Oct, Malignant neoplasm of upper-outer quadrant of left female breast, 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 ; Obesity E66.9 ; Tobacco dependence F17.200 ; Erythrocytosis D75.1 and Peritonsillar abscess J36 Rajinder Guerrero III, MD [address] [place] [address] [place] [address] Sep, Malignant neoplasm of upper-outer quadrant of left female breast, 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 ; Obesity E66.9 ; Celiac disease K90.0 ; Tobacco dependence F17.200 ; Lobular carcinoma of left breast, stage 1 C50.912 and Erythrocytosis D75.1 Rajinder Guerrero III, MD [address] [place] [address] [place] [address] Jun, Malignant neoplasm of upper-outer quadrant of left female breast, 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 ; Iron deficiency E61.1 and Obesity E66.9 Rajinder Guerrero III, MD [address] [place] [address] [place] [address] Mar, Rajinder Guerrero III, MD [address] [place] [address] [place] [address] 15 Dec, 2020 Malignant neoplasm of upper-outer quadrant of left female breast, 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 ; Obesity E66.9 ; Iron deficiency E61.1 ; Tobacco dependence F17.200 ; Celiac disease K90.0 ; Lobular carcinoma of left breast, stage 1 C50.912 and Erythrocytosis D75.1 Rajinder Guerrero III, MD [address] [place] [address] [place] [address] Jun, Malignant neoplasm of upper-outer quadrant of left female breast, 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 ; Obesity E66.9 ; Tobacco dependence F17.200 ; Raynaud's syndrome without gangrene I73.00 and Erythrocytosis D75.1 Rajinder Guerrero III, MD [address] [place] [address] [place] [address] Dec, Lobular carcinoma of left breast, stage 1 C50.912 ; Tobacco dependence F17.200 ; Obesity E66.9 and Erythrocytosis D75.1 Rajinder Guerrero III, MD [address] [place] [address] [place] [address] Dec, Rajinder Guerrero III, MD [address] [place] [address] [place] [address] Oct, Lobular carcinoma of left breast, stage 1 C50.912 ; Iron deficiency E61.1 ; Obesity E66.9 ; Tobacco dependence F17.200 ; Raynaud's syndrome without gangrene I73.00 and Erythrocytosis D75.1 Rajinder Guerrero III, MD [address] [place] [address] [place] [address] August, Iron deficiency E61.1 ; Obesity E66.9 ; Tobacco dependence F17.200 ; Lobular carcinoma of left breast, stage 1 C50.912 and Erythrocytosis D75.1 Rajinder Guerrero III, MD [address] [place] [address] [place] [address] Apr, Malignant neoplasm of upper-outer quadrant of left female breast, 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 ; Obesity E66.9 ; Tobacco dependence F17.200 ; Post-menopausal Z78.0 ; Raynaud's syndrome without gangrene I73.00 and Polycythemia D75.1 Rajinder Guerrero III, MD [address] [place] [address] [place] [address] Oct, Lobular carcinoma of left breast, stage 1 C50.912 ; Polycythemia D75.1 ; Tobacco dependence F17.200 and Obesity E66.9 Rajinder Guerrero III, MD [address] [place] [address] [place] [address] Jul, Malignant neoplasm of upper-outer quadrant of left female breast, 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 ; Obesity E66.9 ; Tobacco dependence F17.200 and Polycythemia D75.1 Rajinder Guerrero III, MD [address] [place] [address] [place] [address] Apr, Malignant neoplasm of upper-outer quadrant of left female breast, 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 ; Obesity E66.9 ; Tobacco dependence F17.200 and Polycythemia D75.1 Rajinder Guerrero III, MD [address] [place] [address] [place] [address] Jan, Malignant neoplasm of upper-outer quadrant of left female breast, 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 ; Tobacco dependence F17.200 ; Obesity E66.9 ; Iron deficiency E61.1 and Polycythemia D75.1 Rajinder Guerrero III, MD [address] [place] [address] [place] [address] Nov, Rajinder Guerrero III, MD [address] [place] [address] [place] [address] Nov, Obesity E66.9 ; Tobacco dependence F17.200 ; Polycythemia D75.1 and Lobular carcinoma of left breast, stage 1 C50.912 Rajinder Guerrero III, MD [address] [place] [address] [place] [address] Oct, Rajinder Guerrero III, MD [address] [place] [address] [place] [address] Oct, Rajinder Guerrero III, MD [address] [place] [address] [place] [address] Sep, Malignant neoplasm of upper-outer quadrant of left female breast, 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 ; Celiac disease K90.0 ; Obesity E66.9 ; Tobacco dependence F17.200 and Polycythemia D75.1 Rajinder Guerrero III, MD [address] [place] [address] [place] [address] August, Rajinder Guerrero III, MD [address] [place] [address] August, Polycythemia D75.1 ; Malignant neoplasm of upper-outer quadrant of left female breast, 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 ; Obesity E66.9 ; Celiac disease K90.0 ; Tobacco dependence F17.200 ; Raynaud's syndrome without gangrene I73.00 and Post-menopausal Z78.0 Rajinder Guerrero III, MD [address] [place] [address] August, Rajinder Guerrero III, MD [address] [place] [address] [place] [address] Jul, Malignant neoplasm of upper-outer quadrant of left female breast, 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 ; Post-menopausal Z78.0 ; Polycythemia D75.1 ; Obesity E66.9 and Tobacco dependence F17.200 Rajinder Guerrero III, MD [address] [place] [address] [place] [address] Jul, Rajinder Guerrero III, MD [address] [place] [address] [address] [place] [address] May, Polycythemia vera D45 ; Encounter for screening breast examination Z12.31 ; Tobacco dependence F17.200 and Raynaud's syndrome without gangrene I73.00 Rajinder Guerrero III, MD [address] [place] [address] [place] [address] Oct, Polycythemia vera D45 ; Raynaud's syndrome without gangrene I73.00 ; Tobacco dependence F17.200 and Obesity E66.9 Rajinder Guerrero III, MD [address] [place] [address] [place] [address] Oct, Raynaud's syndrome without gangrene I73.00 ; Polycythemia vera D45 ; Iron deficiency E61.1 ; Celiac disease K90.0 ; Obesity E66.9 and Tobacco dependence F17.200 Rajinder Guerrero III, MD [address] [place] [address] [place] [address] Jun, Polycythemia vera D45 ; Obesity E66.9 and Tobacco dependence F17.200 Rajinder Guerrero III, MD [address] [place] [address] Mar, Polycythemia vera D45 ; Tobacco dependence F17.200 and Obesity E66.9 Rajinder Guerrero III, MD [address] [place] [address] Dec, Polycythemia vera D45 ; Obesity E66.9 and Tobacco dependence F17.200 Rajinder Guerrero III, MD [address] [address] Dec, Polycythemia vera D45 Rajinder Guerrero III, MD [address] [address] Dec, Rajinder Guerrero III, MD [address] [address] Sep, Rajinder Guerrero III, MD [address] [place] [address] [place] [address] Sep, Polycythemia vera D45 ; Obesity E66.9 and Tobacco dependence F17.200 Rajinder Guerrero III, MD [address] [address] Sep, Rajinder Guerrero III, MD [address] [place] [address] [place] [address] Sep, Rajinder Guerrero III, MD [address] [place] [address] [place] [address] Jul, Polycythemia vera D45 ; Iron deficiency E61.1 ; Tobacco dependence F17.200 and Obesity E66.9 Rajinder Guerrero III, MD [address] [place] [address] [place] [address] May, Polycythemia vera D45 ; Tobacco dependence F17.200 and Obesity E66.9 Rajinder Guerrero III, MD [address] [place] [address] [place] [address] Feb, Polycythemia vera D45 ; Iron deficiency E61.1 ; Obesity E66.9 and Tobacco dependence F17.200 Rajinder Guerrero III, MD [address] [place] [address] [place] [address] Feb, Polycythemia vera D45 and Iron deficiency E61.1 Rajinder Guerrero III, MD [address] [place] [address] [place] [address] Feb, Rajinder Guerrero III, MD [address] [place] [address] [place] [address] Nov, Polycythemia 238.4 ; Iron deficiency 280.9 ; Overweight 278.02 and Tobacco dependence 305.1 Rajinder Guerrero III, MD [address] [place] [address] Nov, Polycythemia 238.4 Rajinder Guerrero III, MD [address] [place] [address] [place] [address] Oct, Rajinder Guerrero III, MD [address] [place] [address] [place] [address] August, Rajinder Guerrero III, MD [address] [place] [address] [place] [address] August, Polycythemia 238.4 ; Overweight 278.02 and Tobacco dependence 305.1 Rajinder Guerrero III, MD [address] [place] [address] [place] [address] May, Polycythemia 238.4 ; Overweight 278.02 and Tobacco dependence 305.1 Rajinder Guerrero III, MD [address] [place] [address] [place] [address] Feb, Polycythemia 238.4 ; Cervical radiculopathy 723.4 ; Iron deficiency 280.9 ; Obesity (BMI 30.0-34.9) 278.00 and Tobacco dependence 305.1 Rajinder Guerrero III, MD [address] [place] [address] [place] [address] Feb, Headache 784.0 ; Obesity (BMI 30.0-34.9) 278.00 and Tobacco dependence 305.1 Rajinder Guerrero III, MD [address] [place] [address] Nov, Polycythemia 238.4 Rajinder Guerrero III, MD [address] [place] [address] [place] [address] Jul, Rajinder Guerrero III, MD [address] [place] [address] [place] [address] Jun, Polycythemia 238.4 ; Iron deficiency 280.9 ; Celiac disease 579.0 ; Obesity (BMI 30.0-34.9) 278.00 and Tobacco dependence 305.1 Rajinder Guerrero III, MD [address] [place] [address] [place] [address] Mar, Polycythemia 238.4 ; Iron deficiency 280.9 ; Celiac disease 579.0 and Overweight 278.02 Rajinder Guerrero III, MD [address] [place] [address] [place] [address] Jan, Rajinder Guerrero III, MD [address] [place] [address] [place] [address] Nov, Rajinder Guerrero III, MD [address] [place] [address] [place] [address] Nov, Polycythemia 238.4 Rajinder Guerrero III, MD [address] [place] [address] [place] [address] Nov, Rajinder Guerrero III, MD [address] [place] [address] [place] [address] Nov, Rajinder Guerrero III, MD [address] [place] [address] [place] [address] Oct, Rajinder Guerrero III, MD [address] [place] [address] [place] [address] Oct, Polycythemia 238.4 ; Iron deficiency 280.9 ; Celiac disease 579.0 ; Hepatic cyst 573.8 ; Abdominal pain 789.00 and Pelvic pain in female 625.9 Rajinder Guerrero III, MD [address] [place] [address] [place] [address] Oct, Rajinder Guerrero III, MD [address] [place] [address] [place] [address] Jul, Polycythemia 238.4 ; Iron deficiency 280.9 and Celiac disease 579.0 Rajinder Guerrero III, MD [address] [place] [address] [place] [address] Jul, Rajinder Guerrero III, MD [address] [place] [address] [place] [address] Jun, Rajinder Guerrero III, MD [address] [place] [address] [place] [address] Oct, Rajinder Guerrero III, MD [address] [place] [address] [place] [address] Sep, Rajinder Guerrero III, MD [address] [place] [address] [place] [address] Jul, Polycythemia 238.4 Rajinder Guerrero III, MD [address] [place] [address] Jul, Rajinder Guerrero III, MD [address] [address] Jul, Rajinder Guerrero III, MD [address] [place] [address] Jun, Rajinder Guerrero III, MD [address] [place] [address] Jun, Rajinder Guerrero III, MD [address] [place] [address] [place] [address] Dec, IMMUNIZATIONS No Known Immunizations SOCIAL HISTORY [...] BY PHYS 11-20 MIN August 27, 2019 [facility] MGMT 7 DAY DISCH October 13, 2021 PHONE E/M BY PHYS 11-20 MIN October 15, 2021 RESULTS Name Result Date Reference Range [...] Subscriber Name Subscriber Date of Group No [employer] [address] [facility] [address] [employer] self Larisa Wegiel [id number] [facility] [address] [place] [address] [place] [address] self Larisa Wegiel [id number]
[2022-09-20] MEDS: Piperacillin Sodium/Tazobactam 3.375 GM in 0.9 % Sodium Chloride 50 ML IV ×3 (03:11→19:10)
[2022-09-20] MEDS: Acetaminophen 1,000 MG/100 ML PIGGYBACK 400 MG IV ×3 (03:11→19:11)
[2022-09-20] MEDS: Dextrose 5 % and Lactated Ring 1,000 ML 125 ML IVCONT ×2 (04:57→16:00)
--- NOTE | 2022-09-20 08:40 | PC.NURSE ---
rn to rn report given to paty. pt aware of plan care for transfer to room 377.
--- NOTE | 2022-09-20 08:46 | PHA.MEDREC ---
Pharmacy Consult ? Medication Reconciliation Pharmacy has completed the medication reconciliation.Spoke to patient at bedside, able to confirm all meds
--- NOTE | 2022-09-20 12:49 | P.CONAN_ITS ---
HPI - Anesthesia Eval Consult details Narrative: lap choly PMFSH Active Problems Active Problems: All Active Problems Acute cholecystitis due to biliary calculus (Acute) Peritonsillar cellulitis (Acute) Peritonsillar cellulitis (Acute) Past Medical History Medical History History of left breast cancer Hypercholesterolemia Hypertension Family History Family history of problems with anesthesia: No Surgical History Surgical History History of lumpectomy of left breast History of lymph node excision History of Problems with Anesthesia: No Social History Social History Household Members: Significant Other Housing: House Do you presently have visiting nurse or other home services: No Alcohol intake: current Alcohol intake frequency: other Patient Tobacco Use Status: Current everyday Tobacco user Tobacco use type: Cigarette Cigarette Packs Per Day: 0.5 Cigarettes Per Day: 10.0 Second Hand Smoke Exposure: No service: No Current occupational status: employed Meds Allergies Allergy/AdvReac Type Severity Reaction Status Date / Time gluten [Gluten] Allergy Unknown Unknown Verified 09/20/22 09:02 environmental allergies Allergy Unknown Verified 09/20/22 09:02 egg [Egg] AdvReac Mild Nausea Verified 09/20/22 09:02 Active Medications: Current Medications Hydromorphone HCl (Hydromorphone Hcl 0.5 Mg/0.5 Ml Syringe) 0.5 mg IVPUSH Q3H PRN; Protocol PRN Reason: Pain, Severe (Pain Scale 7-10) Acetaminophen (Ofirmev) 1,000 mg in 100 mls @ 400 mls/hr IV Q6H [facility] Stop: 09/20/22 20:14 Last Infusion: 09/20/22 08:20 Dose: Infused Dextrose/Lactated Ringer's (D5lr) 1,000 mls @ 125 mls/hr IVCONT .Q8H SLIM Last Admin: 09/20/22 04:57 Dose: 125 mls/hr Piperacillin Sod/Tazobactam (Sod 3.375 gm/ Sodium Chloride) 50 mls @ 100 mls/hr IV Q6H [facility] Last Infusion: 09/20/22 10:04 Dose: Infused Ondansetron HCl (Ondansetron Hcl 4 Mg/2 Ml Vial) 4 mg IVPUSH QID PRN PRN Reason: Nausea Oxycodone HCl (Oxycodone Hcl Immed Release 5 Mg Tablet) 5 mg PO Q6H PRN PRN Reason: Pain, Moderate(Pain Scale 4-6) Pharmacy Consult (Consult Rx Perform Med Rec) 1 each MISCELLANE ONCE PRN PRN Reason: Consult order Zolpidem Tartrate (Zolpidem Tartrate 5 Mg Tablet) 5 mg PO BEDTIME PRN PRN Reason: Insomnia Home Medications Medication Instructions Recorded Confirmed Last Taken Type lorazepam 1 mg tablet 1 mg PO DAILY PRN Anxiety 03/24/20 09/20/22 09/19/22 History losartan 100 1 tab PO DAILY 10/06/21 09/20/22 09/19/22 History mg-hydrochlorothiazide 25 mg tablet pravastatin 80 mg tablet 1 tab PO DAILY 10/06/21 09/20/22 09/19/22 History cholecalciferol (vitamin D3) 50 50 mcg PO DAILY 09/20/22 09/20/22 09/19/22 History mcg (2,000 unit) tablet Exam Exam Date and Time: September 20, 2022 1249 Height,Weight and Vital Signs: Height 5 ft 5 in Weight 105.7 kg Last Vital Signs Temp 97.2 F 09/20/22 10:11 Pulse 70 09/20/22 10:11 Resp 16 09/20/22 10:11 BP 111/45 L 09/20/22 10:11 Pulse Ox 95 09/20/22 10:11 O2 Del Method Room Air 09/20/22 10:11 O2 Flow Rate 2 09/20/22 04:00 Pertinent Lab Results Pertinent Lab Results: Laboratory Tests 09/19/22 09/19/22 09/19/22 21:28 21:28 21:28 WBC 15.1 H RBC 4.43 Hgb 14.3 Hct 43.6 MCV 98.4 H MCH 32.3 MCHC 32.8 RDW 15.0 Plt Count 356 MPV 9.6 Immature Gran % (Auto) 0.3 Neut % (Auto) 82.1 H Lymph % (Auto) 8.4 L Fisher % (Auto) 7.8 Eos % (Auto) 1.1 Baso % (Auto) 0.3 Lymph # (Auto) 1.3 Fisher # (Auto) 1.2 Eos # (Auto) 0.2 Baso # (Auto) 0.0 Abs Immat Gran (auto) 0.05 H Absolute Neuts (auto) 12.4 H Absolute Nucleated RBC 0.000 Nucleated RBC % (auto) 0.0 Sodium 138 Potassium 4.4 Chloride 103 Carbon Dioxide 25 Anion Gap 14 BUN 14 Creatinine 0.84 Estim Creat Clear Calc 79.5 Estimated GFR > 60 Random Glucose 112 Calcium 10.0 D Total Bilirubin 1.2 H Direct Bilirubin 0.4 AST 22 ALT 18 Alkaline Phosphatase 83 Total Protein 7.5 Albumin 4.1 Lipase 16 Urine Color Yellow Urine Appearance Cloudy Urine pH 8.5 Ur Specific [place] 1.015 Urine Protein Negative Urine Glucose (UA) Negative Urine Ketones Trace Urine Blood Negative Urine Nitrite Negative Ur Leukocyte Esterase Trace H Urine RBC 0-2 Urine WBC 0-5 Ur Squamous Epith Cells >20 Urine Bacteria 3+ Hyaline Casts 0-2 Airway Mallampati Class: I TM Dist: >3cm Neck ROM: Full Loose/Missing/Broken Teeth: No Heart: rr Lungs: cta Assessment and Plan Assessment Anesthesia Assessment: Anesthesia Plan Discussed, Smoking Cess. Discussed and Chart Reviewed Final Anesthetic Review Family History of Problems with Anesthesia: No History of Problems with Anesthesia: No NPO: Yes ASA Class: II Final Preanesthetic Review: No Changes in Pt Med Stat, Meds/Allgs Chart Reviewed, Consent Obtained/Reviewed and Anes Risks/Benef Reviewed Patient Risk: Intermediate Procedure Risk: Intermediate Anesthetic Plan Anesthetic Plan: GA and Agree w/ Assess. and Plan Disposition: Standard PACU
--- NOTE | 2022-09-20 14:21 | P.OP_ITS ---
Operative Note Operative Note Date of Service: 09/20/22 Narrative: Preoperative diagnosis: Acute cholecystitis due to cholelithiasis Postoperative diagnosis: Same Procedure: Laparoscopic cholecystectomy Surgeon: Ayad Cameron MD Whistle Punk: SARA Casas Anesthesia: General endotracheal Indications for procedure: 67-year-old female patient with prolonged history of abdominal pain in the right upper quadrant radiating to the back found on CT to have a calcified gallstone at the neck of the gallbladder with wall thickening and pericholecystic fluid suggestive of acute cholecystitis. Operative findings: Acutely inflamed gallbladder with wall thickening and p ericholecystic fluid. Evidence of gangrenous changes in the markedly distended gallbladder. Specimen: gallbladder Estimated blood loss: 10 mL Complications: none Procedure details: Patient was brought to the OR and placed in a supine position. After administering general anesthesia the patient's abdomen was prepped with ChloraPrep and draped in a sterile fashion. Local anesthesia consisting of 0.5% Sensorcaine without epinephrine was infiltrated in a periumbilical region. A 5 mm incision was made above the umbilicus in a transverse fashion. The Veress needle was then inserted while elevating abdominal cavity with towel clips. After positive drop test the abdomen was insufflated to a pressure of 15 mm of mercury. The Veress needle was then removed and a 5 mm trocar inserted. The camera was inserted in the abdomen explored. A 12 mm trocar was then placed in the epigastrium. Two 5 mm trocars placed in the right upper quadrant by the psychiatric technician assistant. The patient was placed in reverse Trendelenburg positioning and rotated to the left. The gallbladder was grasped with the fundus and retracted cephalad by the psychiatric technician assistant. The infundibulum was then grasped and retracted away from the liver bed, also by the psychiatric technician assistant. The Dolphin dissected was then used by the surgeon to dissect the peritoneum off the infundibulum to reveal the junction with the cystic duct. Cystic artery was noted slightly medial and posterior to the cystic duct. After obtaining a critical view the cystic duct was doubly clipped and divided. The cystic artery was then doubly clipped and divided. The gallbladder was then dissected off the liver bed using electrocautery with an L hook. Hemostasis was assured all times using the electrocautery. When the gallbladder is completely dissected off the liver bed was placed in an Endo-Catch bag and brought out through the epigastric incision. The gallbladder was sent to pathology for further examination. The abdomen was then re-examined. The liver bed was irrigated and suctioned dry. No bleeding or bile leak could be identified. CO2 was then evacuated and all trocars removed. Fascia was closed at the epigastric incision using a figur e-of-eight 0 Polysorb suture. Skin was closed in all incisions using a subcuticular 4 0 Polysorb suture by both the surgeon and psychiatric technician assistant. Sterile dressings consisting of Steri-Strips, 2 x 2 gauze, and Tegaderm were then applied. The patient tolerated the procedure well. Sponge instrument and needle counts reported as correct. The patient was transferred to PACU in stable condition.
[2022-09-20] MEDS: 0.9 % Sodium Chloride Flush 3 ML SYRINGE IVFLUSH (19:11)
[2022-09-21] MEDS: Dextrose 5 % and Lactated Ring 1,000 ML 125 ML IVCONT (00:21)
[2022-09-21] MEDS: Piperacillin Sodium/Tazobactam 3.375 GM in 0.9 % Sodium Chloride 50 ML IV (02:27)
[2022-09-21 03:06] VITALS: BP 125/58; PULSE 95; RESP 18; TEMP 36; O2SAT 92
[2022-09-21 07:25] VITALS: BP 121/59; PULSE 80; RESP 17; TEMP 36.1; O2SAT 95
[2022-09-21] MEDS: 0.9 % Sodium Chloride Flush 3 ML SYRINGE IVFLUSH (08:31)
[2022-09-21] MEDS: Losartan Potassium 50 MG TABLET 100 MG PO (08:35)
[2022-09-21] MEDS: Pravastatin Sodium 80 MG TABLET PO (08:35)
[2022-09-21] MEDS: hydroCHLOROthiazide 25 MG TABLET PO (08:35)
--- NOTE | 2022-09-21 08:51 | PM.PNGS ---
Subjective Subjective Date of Service: 09/21/22 Interval history: Feels well overall, much improved from before the surgery. Tolerating solid diet. Reports some mild right upper rib pain. Wants to go home. Physical Exam Vital Signs: Vital Signs: Last Vital Signs Temp 97 F 09/21/22 07:25 Pulse 80 09/21/22 07:25 Resp 17 09/21/22 07:25 BP 121/59 L 09/21/22 07:25 Pulse Ox 95 09/21/22 07:25 O2 Del Method Room Air 09/21/22 07:25 O2 Flow Rate 3 09/20/22 15:18 BMI result Body Mass Index 38.8 Const: General: comfortable, no acute distress and alert Orientation/consciousness: patient oriented x3 Resp: Effort & Inspection: normal respiratory effort GI: Inspection: No distended and Yes incision (dressings c/d/i) Palpation (GI): Soft to palpation, Tenderness to palpation present (GI) (mild, incisional), no guarding and not rigid Percussion: Yes normal to percussion Skin: General skin exam: no rashes or lesions noted Neuro: General: patient oriented x3 and moves all extremities Objective Data Active Medications Hydrochlorothiazide (Hydrochlorothiazide 25 Mg Tablet) 25 mg PO DAILY [facility] Last Admin: 09/21/22 08:35 Dose: 25 mg Documented By: CORA Hydromorphone HCl (Hydromorphone Hcl 0.5 Mg/0.5 Ml Syringe) 0.5 mg IVPUSH Q3H PRN; Protocol PRN Reason: Pain, Severe (Pain Scale 7-10) Lorazepam (Lorazepam 1 Mg Tablet) 1 mg PO DAILY PRN PRN Reason: Anxiety Losartan Potassium (Losartan Potassium 50 Mg Tablet) 100 mg PO DAILY [facility] Last Admin: 09/21/22 08:35 Dose: 100 mg Documented By: CORA Ondansetron HCl (Ondansetron Hcl 4 Mg/2 Ml Vial) 4 mg IVPUSH QID PRN PRN Reason: Nausea Oxycodone HCl (Oxycodone Hcl Immed Release 5 Mg Tablet) 5 mg PO Q6H PRN PRN Reason: Pain, Moderate(Pain Scale 4-6) Pharmacy Consult (Consult Rx Perform Med Rec) 1 each MISCELLANE ONCE PRN PRN Reason: Consult order Pravastatin Sodium (Pravastatin Sodium 80 Mg Tablet) 80 mg PO DAILY [facility] Last Admin: 09/21/22 08:35 Dose: 80 mg Documented By: CORA Sodium Chloride (0.9 % Sodium Chloride Flush 3 Ml Syringe) 3 ml IVFLUSH QSHIFT [facility] Last Admin: 09/21/22 08:31 Dose: 3 ml Documented By: CORA Vitamin D (Cholecalciferol (Vitamin D3) 25 Mcg Tablet) 50 mcg PO DAILY [facility] Zolpidem Tartrate (Zolpidem Tartrate 5 Mg Tablet) 5 mg PO BEDTIME PRN PRN Reason: Insomnia Labs 09/19/22 21:28 09/19/22 21:28 Procedures Date of Service Date of Service: 09/21/22 Progress Note: A&P Assessment and plan (1) Acute cholecystitis due to biliary calculus: Status: Acute (2) S/P laparoscopic cholecystectomy: Status: Acute Plan 67 year old female POD #1 s/p lap renetta. Doing well post op. Pain controlled, tolerating solid diet. VSS. Abd benign with appropriate post op tenderness, dressing clean. Stable for dc to home today. Patient comfortable with plan. F/u in office in 1 week. Time Spent With Patient Time: Total time managing care of this patient today ____ minutes. Quality Stroke Does the patient have a stroke diagnosis?: No VTE Prior VTE?: No VTE Risk Level:: Surgical - moderate VTE Device Contraindication: N/A - Device Ordered VTE Drug Contraindication: Treatment Not Indicated
--- NOTE | 2022-09-21 10:39 | MHC.CM.PN ---
Addendum entered by Freda Cabrera RN 09/21/22 11:47: PATIENT WAS DC PRIOR TO CM BEING ABLE TO MEET WITH [facility] PATIENT WAS GONE FROM ROOM BY THE TIME NORMAL OPERATIONS WERE BACK. NO IMM GIVEN AND PATIENT DID NOT EXPRESS ANY NEED TO STAY OR APPEAL DC TO ANY STAFF MEMBER Original Note: PATIENT IS DC HOME - SELF CARE.
--- NOTE | 2022-09-21 13:07 | PM.DS ---
DS: Providers Provider Date of Service: 09/21/22 Date of admission: 09/20/22 01:52 Date of discharge: 09/21/22 Primary care physician: Deandra Vaughn MD Attending physician on admission: Ayad Cameron Attending physician on discharge: Ayad Cameron DS: Diagnosis Discharge Diagnosis (1) Acute cholecystitis due to biliary calculus: Status: Acute (2) S/P laparoscopic cholecystectomy: Status: Acute DS: Summary Hospital Course Hospital Course: HPI AT ADMISSION: Larisa Dee is a 67 year old female presenting with complaints of abdominal pain in the Right lower quadrant of 24 hours duration. Pain began after eating roast beef with potato chips. She reports a long history of GI upset and was previously diagnosed with reflux and celiac disease. The current episode is the worst in longest lasting episode and was felt mainly in the right upper quadrant with radiation to the back. She also reports nausea and vomiting. She subsequently presented to the emergency department and was noted to be tender in the right upper quadrant. CT abdomen and pelvis revealed a distended gallbladder with calcified gallstones, surrounding inflammation and pericholecystic fluid suggestive of acute cholecystitis. Laboratories revealed elevated WBC and bilirubin with normal transaminases. BRIEF HPI: She was admitted to the surgical service for management of this acute cholecystitis. She was kept NPO, started on IVF, IV zosyn and PRN analgesics. It was recommended to proceed with laparoscopic cholecystectomy possible open. She elected to proceed and was added onto the OR schedule for that day. On 09/20/22, a laparoscopic cholecystectomy was performed by Dr. Cameron without complication. She had acutely inflamed gallbladder with wall thickening and pericholecystic fluid and evidence of gangrenous changes. She tolerated the procedure well. She had an uncomplicated recovery course. She was doing very well on POD #1 with adequate pain control on oral analgesics. She was tolerating a solid diet. She was OOB without difficulty. Her abdomen was benign with appropriate post op tenderness and clean dressings. Her vitals were stable. She felt ready for discharge. She was discharged to home on 09/21/22 in stable condition. She is to follow up with Dr. Cameron in the office in 1 week. Status at Discharge Functional status at discharge: independent ambulation Time Spent with Patient Time attestation: Total time managing care of this patient today ____ minutes. Discharge coordination time: Less than 30 minutes Quality: Safe Use of Opioids Does Pt have an Active Cancer Diagnosis on the Problem List?: No Quality: Stroke Does the patient have a stroke diagnosis?: No Physical Exam Vital Signs: Vital Signs: Last Vital Signs Temp 97 F 09/21/22 07:25 Pulse 80 09/21/22 07:25 Resp 17 09/21/22 07:25 BP 121/59 L 09/21/22 07:25 Pulse Ox 95 09/21/22 07:25 O2 Del Method Room Air 09/21/22 07:25 O2 Flow Rate 3 09/20/22 15:18 BMI result Body Mass Index 38.8 Const: General: comfortable, no acute distress and alert Orientation/consciousness: patient oriented x3 Resp: Effort & Inspection: normal respiratory effort GI: Inspection: No distended and Yes incision (dressings c/d/i) Palpation (GI): Soft to palpation, Tenderness to palpation present (GI) (mild incisional), no guarding and not rigid Percussion: Yes normal to percussion Skin: General skin exam: no rashes or lesions noted Neuro: General: patient oriented x3 and moves all extremities DS: Data Data Completed and Pending Completed studies during hospitalization [Text1]: Procedures Drainage of Tonsils, Percutaneous Approach (10/06/21) Pending studies at discharge: Pending at discharge 09/20/22 14:34 Surgical [PTH] Routine Discharge Plan Discharge Anticipated Discharge Date/Time: 09/21/22 08:46 Patient Disposition: Home, Self-Care Discharge Diagnosis: acute cholecystitis s/p lap renetta Referrals: Deandra Vaughn MD [Primary Care Provider] - 1 Week Ayad Cameron MD [Physician] - 1 Week Discharge Medications: New docusate sodium [Colace] 100 mg capsule 100 mg PO BID Qty: 30 0RF oxycodone 5 mg tablet 5 mg PO Q4H PRN (Reason: pain (scale score 7-10)) Qty: 20 0RF Rx Instructions: Partial Fill upon patient request. Continued losartan-hydrochlorothiazide 100-25 mg tablet 1 tab PO DAILY pravastatin 80 mg tablet 1 tab PO DAILY cholecalciferol (vitamin D3) 50 mcg (2,000 unit) Tablet 50 mcg PO DAILY lorazepam 1 mg tablet 1 mg PO DAILY PRN (Reason: Anxiety) Discharge Orders: Discharge Order (Routine); Ordered 09/21/22 Ordered By: Noemy Crook Diet: Low fat, low cholesterol Activity on Discharge: No heavy lifting Stand Alone Forms: Patient Portal Discharge page, Work/School Release Activity Restrictions/Additional Instructions: If the incision area is tender, you may apply an ice pack for short intervals (No more than 20 minutes on, followed by at least 20 minutes off). Do not apply heat. Do not use creams, lotions, or topical antibiotics. These can cause infection or allergic reaction. Ok to shower. Remove clear dressings 3 days following your procedure. You have steri strips (small white cloth strips) covering your incision- these will fall off ~1 week. No heavy lifting (>10lbs) or strenuous activity! Follow up in office with Dr. Cameron in 1 week. ([phone]) Call Your Doctor If: -Your temperature exceeds 101.5? F -You experience excessive pain or swelling -You have an unexpected reaction to medication -You have excessive bleeding -You experience continued vomiting/nausea -Your incision begins to separate -Your incision shows signs of infection such as increased redness, swelling, excessive pain, drainage (light blood or clear fluid is normal) or heat Care Plan Goals: Return to baseline health and resume normal activities following recovery period. Health Concerns: Acute cholecystitis, gangrenous Plan of Treatment: s/p nini renetta f/u in office in 1 week Assessment: Doing well post op Discharge Date/Time: 09/21/22 10:56
--- NOTE | 2022-09-21 14:36 | HO.POSTANES ---
Post Anesthesia Evaluation Post Anesthesia Evaluation Date of Service: 09/21/22 Vital Signs: Vital Signs Temp Pulse Resp BP Pulse Ox O2 Del Method 09/21/22 07:25 97 F 80 17 121/59 L 95 Room Air 09/21/22 03:06 96.8 F 95 18 125/58 L 92 Room Air Anesthesia: General Endotracheal-GETA Mental Status: Awake Pain Control: Satisfactory Nausea/Vomiting: None Hydration: Adequate Anesthesia-Related Issues: No Anes. Related Issues
== END 2022-09-21 10:56 | disposition home or self-care (01) | DRG 419 ==
LOC: HO.ED 09-20 02:04 → HO.EDOVER 09-20 02:31 → HO.S3 09-20 07:48
PROVIDERS: Physician Assistant Medical; Admitting Provider Surgery; Emergency Provider Emergency Medicine Emergency Medical Services; PCP Internal Medicine; Visit Provider Surgery
PROC: 0FT44ZZ Resection of Gallbladder, Percutaneous Endoscopic Approach (ICD-10-PCS; CPT 47562; principal; 2022-09-20 12:30)
DX: K80.00 Calculus of gallbladder with acute cholecystitis without obstruction (principal); E78.00 Pure hypercholesterolemia, unspecified; I10 Essential (primary) hypertension; F17.210 Nicotine dependence, cigarettes, uncomplicated; Z71.6 Tobacco abuse counseling; Z79.899 Other long term (current) drug therapy
CPT/HCPCS: 47562; 36415; 74176; 80048; 80076; 81001; 83690; 85025; 88304; 99285; J0131; J0696; J1170; J2250; J2405; J2543; J3010

== ENCOUNTER → 2022-10-03 08:53 | Outpatient (BNVA) | payer MEDICARE, SELFPAY | PROVIDERS: PCP Internal Medicine; Visit Provider Surgery | DX: Z48.815 Encounter for surgical aftercare following surgery on the digestive system (principal); Z90.49 Acquired absence of other specified parts of digestive tract; Z87.19 Personal history of other diseases of the digestive system | CPT/HCPCS: 99212 ==

== ENCOUNTER 2022-11-21 14:48 | Outpatient (REF) | payer MEDICARE, SELFPAY ==
[2022-11-21 15:07] LABS: MANUAL DIFF FLAG NO
[2022-11-21 15:09] LABS: Basophils Absolute Auto 0.1 X10*3/uL (0.0-0.2); Basophils Percent Auto 0.5 % (0-2); Eosinophils Absolute Auto 0.2 X10*3/uL (0.0-0.4); Eosinophils Percent Auto 1.8 % (0-4); Hematocrit 44.2 % (37.0-47.0); Hemoglobin 14.5 g/dl (12.0-16.0); Imm Gran Abs Auto 0.03 X10*3/uL (0.00-0.03); Imm Gran Pct Auto 0.3 % (0.0-0.4); Lymphocytes Absolute Auto 1.5 X10*3/uL (1.2-4.9); Lymphocytes Percent Auto 14.1 % (20-40); Mean Corpuscular HGB Conc 32.8 g/dl (31.0-35.0); Mean Corpuscular Hemoglobin 33.3 pg (27.0-33.0); Mean Corpuscular Volume 101.4 fL (80.0-98.0); Mean Platelet Volume 9.8 fL (9.4-12.3); Monocytes Percent Auto 9.5 % (2-11); Neutrophils Absolute Auto 7.8 x10*3/uL (2.0-8.3); Neutrophils Percent Auto 73.8 % (45-73); Platelet Count 349 X10*3/uL (160-400); Red Blood Count 4.36 X10*6/uL (4.20-5.50); Red Cell Distribution Width 14.3 % (11.0-16.0); White Blood Count 10.5 X10*3/uL (4.8-10.8)
== END 2022-11-21 14:49 | disposition home or self-care (01) ==
LOC: HO.BBR 14:48
PROVIDERS: PCP Internal Medicine Medical Oncology; Visit Provider Internal Medicine Medical Oncology
DX: D75.1 Secondary polycythemia (principal)
CPT/HCPCS: 36415; 85014; 85018; 85025; 99195

== ENCOUNTER 2023-01-25 13:57 | Outpatient (REF) | payer MEDICARE, SELFPAY | END 2023-01-25 13:58 | disposition home or self-care (01) | LOC: HO.BBR 13:57 | PROVIDERS: PCP Internal Medicine Medical Oncology; Visit Provider Internal Medicine Medical Oncology | DX: D75.1 Secondary polycythemia (principal) | CPT/HCPCS: 36415; 85014; 85018; 85025; 99195 ==

== ENCOUNTER 2023-02-21 07:17 | Day surgery (SDC) | payer MEDICARE, SELFPAY ==
[2023-02-17 16:23] VITALS: BMI 39.3
--- NOTE | 2023-02-20 09:54 | P.CONAN_ITS ---
Documented by User: Brooklynn Biswas NP 02/20/23 10:01 HPI - Anesthesia Eval Consult details Narrative: 67yo F for Upper Endoscopy and Colonoscopy Dr Hayes note states new seizure dx. Per patient, not seizures. Having rare orthostatic dizziness. MRI negative for any malignancy. Smoker s/p lap renetta 09/2022 with GA-ETT 7 PMFSH Active Problems Active Problems: All Active Problems (Updated 02/20/23 @ 08:02 by Tiesha Fernandez RN) S/P laparoscopic cholecystectomy (Acute) Acute cholecystitis due to biliary calculus (Acute) Peritonsillar cellulitis (Acute) Peritonsillar cellulitis (Acute) Past Medical History Medical History (Updated 02/21/23 @ 07:49 by Sondra Zheng, FREDDIE) Polycythemia Orthostatic dizziness Hypercholesterolemia Hypertension History of left breast cancer Family History Family history of problems with anesthesia: No Surgical History Surgical History Hx laparoscopic cholecystectomy (09/20/22) History of lymph node excision History of lumpectomy of left breast History of Problems with Anesthesia: No Social History Social History (Updated 02/20/23 @ 10:28 by Gabriella Giang RN) Household Members: None Housing: House Are you a primary medical care manager to a significant other at home: No Do you presently have visiting nurse or other home services: No Alcohol intake: current Alcohol intake frequency: other Patient Tobacco Use Status: Current someday Tobacco user Tobacco use type: Cigarette Years Smoked: 40 Smoked in Last 30 Days: Yes Second Hand Smoke Exposure: No Use of substances other than those prescribed or required for medical reasons: No Have you been hit, kicked, punched, or otherwise hurt by someone within the past year? If so, by whom?: No Are you DNR?: No Advance Directives: No Advance Directives Information Provided: Yes Advance Directives on File: No Recently lost weight without trying: No Nutrition Risks: No Nutritional Risk service: No Current occupational status: employed Meds Allergies Allergy/AdvReac Type Severity Reaction Status Date / Time gluten [Gluten] Allergy Intermediate Gastrointestinal Verified 02/21/23 07:29 Upset environmental allergies Allergy Unknown Unknown Verified 02/21/23 07:29 egg [Egg] AdvReac Intermediate Gastrointestinal Verified 02/21/23 07:29 Upset Home Medications Medication Instructions Recorded Confirmed Last Taken Type lorazepam 1 mg tablet 1 mg PO DAILY PRN Anxiety 03/24/20 02/21/23 09/19/22 History losartan 100 1 tab PO DAILY 10/06/21 02/21/23 09/19/22 History mg-hydrochlorothiazide 25 mg tablet pravastatin 80 mg tablet 1 tab PO DAILY 10/06/21 02/21/23 09/19/22 History cholecalciferol (vitamin D3) 50 50 mcg PO DAILY 09/20/22 02/21/23 09/19/22 History mcg (2,000 unit) tablet cyanocobalamin (vitamin B-12) 1,000 mcg PO DAILY 02/20/23 02/21/23 Unknown History 1,000 mcg tablet (Vitamin B-12) Exam Exam Date and Time: February 20, 2023 0954 Height,Weight and Vital Signs: Height 5 ft 5 in Weight 107.048 kg Pertinent Lab Results Pertinent Lab Results: Laboratory Tests 09/19/22 09/19/22 01/25/23 21:28 21:28 14:08 WBC 9.7 Hgb 14.0 Hct 42.6 Plt Count 352 Sodium 138 Potassium 4.4 Chloride 103 Carbon Dioxide 25 BUN 14 Creatinine 0.84 Assessment and Plan Assessment Anesthesia Assessment: Chart Reviewed Final Anesthetic Review Family History of Problems with Anesthesia: No History of Problems with Anesthesia: No Documented by User: Gabriele Walter MD 02/21/23 08:31 [facility] Past Medical History Medical History (Updated 02/21/23 @ 07:49 by Sondra Zheng RN) Polycythemia Orthostatic dizziness Hypercholesterolemia Hypertension History of left breast cancer Surgical History Surgical History Hx laparoscopic cholecystectomy (09/20/22) History of lymph node excision History of lumpectomy of left breast Social History Social History (Updated 02/20/23 @ 10:28 by Gabriella Giang RN) Household Members: None Housing: House Are you a primary medical care manager to a significant other at home: No Do you presently have visiting nurse or other home services: No Alcohol intake: current Alcohol intake frequency: other Patient Tobacco Use Status: Current someday Tobacco user Tobacco use type: Cigarette Years Smoked: 40 Smoked in Last 30 Days: Yes Second Hand Smoke Exposure: No Use of substances other than those prescribed or required for medical reasons: No Have you been hit, kicked, punched, or otherwise hurt by someone within the past year? If so, by whom?: No Are you DNR?: No Advance Directives: No Advance Directives Information Provided: Yes Advance Directives on File: No Recently lost weight without trying: No Nutrition Risks: No Nutritional Risk service: No Current occupational status: employed Meds Allergies Allergy/AdvReac Type Severity Reaction Status Date / Time gluten [Gluten] Allergy Intermediate Gastrointestinal Verified 02/21/23 07:29 Upset environmental allergies Allergy Unknown Unknown Verified 02/21/23 07:29 egg [Egg] AdvReac Intermediate Gastrointestinal Verified 02/21/23 07:29 Upset Home Medications Medication Instructions Recorded Confirmed Last Taken Type lorazepam 1 mg tablet 1 mg PO DAILY PRN Anxiety 03/24/20 02/21/23 09/19/22 History losartan 100 1 tab PO DAILY 10/06/21 02/21/23 09/19/22 History mg-hydrochlorothiazide 25 mg tablet pravastatin 80 mg tablet 1 tab PO DAILY 10/06/21 02/21/23 09/19/22 History cholecalciferol (vitamin D3) 50 50 mcg PO DAILY 09/20/22 02/21/23 09/19/22 History mcg (2,000 unit) tablet cyanocobalamin (vitamin B-12) 1,000 mcg PO DAILY 02/20/23 02/21/23 Unknown History 1,000 mcg tablet (Vitamin B-12) Exam Airway Mallampati Class: III TM Dist: <=3cm Neck ROM: Full Loose/Missing/Broken Teeth: No Heart: ok Lungs: Sats 92-96% room air. Chest CTA w norm exp phase. Assessment and Plan Assessment Anesthesia Assessment: Anesthesia Plan Discussed Final Anesthetic Review NPO: Yes ASA Class: III Final Preanesthetic Review: No Changes in Pt Med Stat, Meds/Allgs Chart Reviewed, Consent Obtained/Reviewed and Anes Risks/Benef Reviewed Patient Risk: Intermediate Procedure Risk: Intermediate Anesthetic Plan Anesthetic Plan: MAC: and Agree w/ Assess. and Plan Disposition: Standard PACU
[2023-02-20 10:28] VITALS: BMI 39.3
[2023-02-21 07:37] VITALS: BP 102/52; PULSE 64; RESP 16; TEMP 36.8; O2SAT 92
[2023-02-21] MEDS: Lactated Ringers 1,000 ML 100 ML IVCONT (07:49)
--- NOTE | 2023-02-21 08:25 | P.HPSUR_ITS ---
Pre-Procedural Eval Section A Date of Service: 02/21/23 Section B Chief Complaint: Gastro-esophageal reflux disease without esophagit Details of Present Illness: see H&P no changes Relevant Family History (Specify if Yes): No Relevant Social History: None Present Medications: see Short Stay Collaborative assessment Medical History: No relevant PMH History of Previous Operations: No relevant previous surgery Allergies: Allergies Allergy/AdvReac Type Severity Reaction Status Date / Time gluten [Gluten] Allergy Intermediate Gastrointestinal Verified 02/21/23 07:29 Upset environmental allergies Allergy Unknown Unknown Verified 02/21/23 07:29 egg [Egg] AdvReac Intermediate Gastrointestinal Verified 02/21/23 07:29 Upset Review of Systems Sugical H&P ROS: Negative: Constitution, Cardiovascular, Respiratory, Neurologi moon, Psychiatric, Hem-Onc, Allergic/Immunologic, Gastrointestinal, Genitourinary, Musculoskeletal, Integumentary, Endocrine and Eyes/Ears/Nose/Throat Exam Surgical H&P Exam: Normal: HEENT, Normal: Heart, Normal: Lungs, Normal: Extremities, Normal: Abdomen, Normal: Skin and Normal: Neurological Plan Diagnosis/Plan: Unchanged I have reviewed the history and physical and performed a pertinent physical examination on my patient. No changes have occurred unless specified. Time Spent With Patient Time: Total time managing care of this patient today ____ minutes.
--- NOTE | 2023-02-21 09:15 | P.BOP_ITS ---
Brief Operative Note Date of Service: 02/21/23 Pre-op diagnosis: gerd screening Post-op diagnosis: same Procedure: egd colonoscopy Surgeon: Tevin Hayes MD Anesthesia: MAC Was an Clay Puddler used for this Procedure?: No Estimated blood loss (mL): 2 Pathology: other Condition: stable Disposition: PACU
[2023-02-21 09:22] VITALS: BP 113/53; PULSE 81; RESP 16; TEMP 37.1; O2SAT 94
[2023-02-21 09:37] VITALS: BP 136/69; PULSE 76; RESP 16; TEMP 36.9; O2SAT 96
--- NOTE | 2023-02-21 09:57 | OP_ITS ---
DATE OF SERVICE: 02/21/2023 SURGEON: Tevin Hayes MD INDICATIONS: 1. Gastroesophageal reflux disease. 2. Bloating. 3. Colon cancer screening. PREOPERATIVE DIAGNOSIS: POSTOPERATIVE DIAGNOSIS: PROCEDURE PERFORMED: Upper endoscopy with biopsy, colonoscopy to the terminal ileum with biopsy. ESTIMATED BLOOD LOSS: COMPLICATIONS: ANESTHESIA: Monitored anesthesia care. ASSISTANTS: SPECIMENS: DESCRIPTION OF PROCEDURE: A history and physical was performed. The risks and benefits of the procedure were explained to the patient. Informed consent was obtained. The patient was placed in the left lateral decubitus position. The Olympus video gastroscope was introduced into the esophagus, stomach, and duodenum. Examination was performed. The scope was removed. She was repositioned for colonoscopy. A digital rectal exam was performed and was found to be normal. The Olympus pediatric video colonoscope was introduced into the rectum and advanced to the cecum. The cecum was identified by transillumination, palpation, and identification of the ileocecal valve. Examination was performed. The scope was removed. She tolerated the procedure well and returned to the recovery area in stable condition. FINDINGS: Upper endoscopy: 1. Esophagus: The esophagus showed a slightly irregular EG junction. Biopsies were obtained from the EG junction. There was a small sliding hiatal hernia. 2. Stomach: The stomach showed no evidence of masses, ulcers, or polyps. Antral biopsies were obtained to evaluate for H pylori. 3. Duodenum: The bulb and 2nd portion did not show classic changes of celiac disease. Biopsies were obtained from the duodenum because of the patient's history of gluten allergy. Colonoscopy: The terminal ileum was examined and appeared normal. The quality of the prep was good. There was a single polyp measuring less than 5 mm at 40 cm, which was removed with a biopsy forceps. There were approximately 4 to 5 polyps in the rectum measuring less than 5 mm. These had the appearance of hyperplastic polyps and several biopsies were obtained for histopathology. There were few diverticula seen in the sigmoid colon. Retroflexed examination showed small internal hemorrhoids. IMPRESSION: 1. Gastroesophageal reflux disease. 2. Colon polyps. RECOMMENDATION: Follow up the biopsy results. MD GHASSAN Uriarte/HERON / [id number]
== END 2023-02-21 09:53 | disposition home or self-care (01) ==
PROVIDERS: PCP Internal Medicine Medical Oncology; Visit Provider Internal Medicine Gastroenterology
PROC: (CPT 43239; principal; 2023-02-21 08:30)
DX: K21.9 Gastro-esophageal reflux disease without esophagitis (principal); K44.9 Diaphragmatic hernia without obstruction or gangrene; Z12.11 Encounter for screening for malignant neoplasm of colon; D12.5 Benign neoplasm of sigmoid colon; K62.1 Rectal polyp; Z86.010 Personal history of colon polyps; R14.0 Abdominal distension (gaseous); Z90.49 Acquired absence of other specified parts of digestive tract; E78.00 Pure hypercholesterolemia, unspecified; I10 Essential (primary) hypertension; Z85.3 Personal history of malignant neoplasm of breast; F17.210 Nicotine dependence, cigarettes, uncomplicated; Z79.899 Other long term (current) drug therapy
CPT/HCPCS: 43239; 45380; 88305; 88342; J2250

== ENCOUNTER 2023-03-29 12:47 | Outpatient (REF) | payer MEDICARE, SELFPAY ==
[2023-03-29 13:05] LABS: MANUAL DIFF FLAG NO
[2023-03-29 13:06] LABS: Basophils Absolute Auto 0.1 X10*3/uL (0.0-0.2); Basophils Percent Auto 0.5 % (0-2); Eosinophils Absolute Auto 0.2 X10*3/uL (0.0-0.4); Eosinophils Percent Auto 1.7 % (0-4); Hematocrit 44.1 % (37.0-47.0); Hemoglobin 14.2 g/dl (12.0-16.0); Imm Gran Abs Auto 0.03 X10*3/uL (0.00-0.03); Imm Gran Pct Auto 0.3 % (0.0-0.4); Lymphocytes Absolute Auto 1.8 X10*3/uL (1.2-4.9); Lymphocytes Percent Auto 19.1 % (20-40); Mean Corpuscular HGB Conc 32.2 g/dl (31.0-35.0); Mean Corpuscular Hemoglobin 32.3 pg (27.0-33.0); Mean Corpuscular Volume 100.2 fL (80.0-98.0); Mean Platelet Volume 9.6 fL (9.4-12.3); Monocytes Absolute Auto 0.8 X10*3/uL (0.1-1.2); Monocytes Percent Auto 9.1 % (2-11); Neutrophils Absolute Auto 6.4 x10*3/uL (2.0-8.3); Neutrophils Percent Auto 69.3 % (45-73); Platelet Count 345 X10*3/uL (160-400); Red Cell Distribution Width 14.2 % (11.0-16.0); White Blood Count 9.3 X10*3/uL (4.8-10.8)
[2023-03-29 14:05] LABS: Alanine Aminotransferase 16 U/L (0-31); Alkaline Phosphatase 77 U/L (39-117); Anion Gap 14 (12-20); Aspartate Amino Transferase 18 U/L (5-31); Bilirubin Total 0.4 mg/dL (0.0-1.0); Blood Urea Nitrogen 21 mg/dL (9-16); Calcium 9.1 mg/dL (8.4-10.2); Carbon Dioxide 26 mmol/L (22-29); Chloride 105 mmol/L (96-108); Estimated Glomerular Filt Rate 53; Glucose Random 83 mg/dL (60-115); Potassium 4.3 mmol/L (3.3-5.1); Sodium 141 mmol/L (135-145); Total Protein 7.5 g/dL (6.5-8.0)
== END 2023-03-29 12:48 | disposition home or self-care (01) ==
LOC: HO.BBR 12:47
PROVIDERS: PCP Internal Medicine Medical Oncology; Visit Provider Internal Medicine Medical Oncology
DX: D75.1 Secondary polycythemia (principal)
CPT/HCPCS: 36415; 80053; 85025; 99195

== ENCOUNTER 2023-04-26 15:13 | Outpatient (REF) | payer MEDICARE, SELFPAY ==
--- NOTE | ~2023-04-26 | MM_ITS ---
EXAMINATION: MM SCREENING DIGITAL BREAST TOMOSYNTHESIS, BILATERAL CLINICAL INFORMATION: Screening. Asymptomatic. The patient has a history of treated left breast cancer. COMPARISON: Mammography: This study is compared with prior exams dating back to 2018. TECHNIQUE: Digital breast tomosynthesis is performed in both the craniocaudal and mediolateral oblique views along with computer-aided detection (CAD). Synthesized 2D images are generated from the tomosynthesis. FINDINGS: There are scattered areas of fibroglandular density (ACR BI-RADS breast composition Category b). There are no significant masses, abnormal calcifications, or other abnormalities. There are posttreatment changes in the left breast as evidenced by active skin thickening from prior radiation therapy. There are benign calcifications in the upper outer quadrant of the left breast. MM/MM tomosynthesis screening BI IMPRESSION: No mammographic evidence of malignancy. ASSESSMENT: BI-RADS BI-RADS 2 - Benign Findings RECOMMENDATION: Routine annual mammography screening. 1 year F/U This examination should not preclude the clinical evaluation of a suspicious palpable abnormality. This patient's information was entered into a reminder system with a target due date for their next mammogram.
== END 2023-04-26 15:14 | disposition home or self-care (01) ==
LOC: HO.MAMMO 15:13
PROVIDERS: PCP Internal Medicine; Visit Provider Internal Medicine
DX: Z12.31 Encounter for screening mammogram for malignant neoplasm of breast (principal)
CPT/HCPCS: 77063; 77067

== ENCOUNTER → 2023-04-26 15:30 | Outpatient (BNV) | payer MEDICARE, SELFPAY | PROVIDERS: PCP Internal Medicine; Visit Provider Radiology Diagnostic Radiology | DX: Z12.31 Encounter for screening mammogram for malignant neoplasm of breast (principal) | CPT/HCPCS: 77063; 77067 ==

== ENCOUNTER 2023-06-09 10:46 | Outpatient (REF) | payer MEDICARE, SELFPAY ==
[2023-06-09 11:09] LABS: MANUAL DIFF FLAG NO
[2023-06-09 11:12] LABS: Basophils Absolute Auto 0.1 X10*3/uL (0.0-0.2); Basophils Percent Auto 0.7 % (0-2); Eosinophils Absolute Auto 0.1 X10*3/uL (0.0-0.4); Eosinophils Percent Auto 1.9 % (0-4); Hematocrit 40.3 % (37.0-47.0); Hemoglobin 13.6 g/dl (12.0-16.0); Imm Gran Abs Auto 0.01 X10*3/uL (0.00-0.03); Imm Gran Pct Auto 0.1 % (0.0-0.4); Lymphocytes Absolute Auto 1.7 X10*3/uL (1.2-4.9); Lymphocytes Percent Auto 24.7 % (20-40); Mean Corpuscular HGB Conc 33.7 g/dl (31.0-35.0); Mean Corpuscular Hemoglobin 32.9 pg (27.0-33.0); Mean Corpuscular Volume 97.3 fL (80.0-98.0); Mean Platelet Volume 9.8 fL (9.4-12.3); Monocytes Absolute Auto 0.7 X10*3/uL (0.1-1.2); Monocytes Percent Auto 10.4 % (2-11); Neutrophils Absolute Auto 4.2 x10*3/uL (2.0-8.3); Neutrophils Percent Auto 62.2 % (45-73); Platelet Count 338 X10*3/uL (160-400); Red Blood Count 4.14 X10*6/uL (4.20-5.50); Red Cell Distribution Width 14.1 % (11.0-16.0); White Blood Count 6.7 X10*3/uL (4.8-10.8)
== END 2023-06-09 10:47 | disposition home or self-care (01) ==
LOC: HO.BBR 10:46
PROVIDERS: PCP Internal Medicine; Visit Provider Internal Medicine Medical Oncology
DX: D75.1 Secondary polycythemia (principal)
CPT/HCPCS: 36415; 85014; 85018; 85025; 99195

== ENCOUNTER 2023-08-08 08:51 | Outpatient (REF) | payer MEDICARE, SELFPAY ==
[2023-08-08 09:05] LABS: MANUAL DIFF FLAG NO
[2023-08-08 09:09] LABS: Basophils Percent Auto 0.5 % (0-2); Eosinophils Absolute Auto 0.1 X10*3/uL (0.0-0.4); Eosinophils Percent Auto 1.4 % (0-4); Hematocrit 42.4 % (37.0-47.0); Hemoglobin 14.1 g/dl (12.0-16.0); Imm Gran Abs Auto 0.03 X10*3/uL (0.00-0.03); Imm Gran Pct Auto 0.4 % (0.0-0.4); Lymphocytes Absolute Auto 1.4 X10*3/uL (1.2-4.9); Mean Corpuscular HGB Conc 33.3 g/dl (31.0-35.0); Mean Corpuscular Hemoglobin 32.6 pg (27.0-33.0); Mean Corpuscular Volume 98.1 fL (80.0-98.0); Mean Platelet Volume 9.6 fL (9.4-12.3); Monocytes Absolute Auto 0.7 X10*3/uL (0.1-1.2); Neutrophils Absolute Auto 5.7 x10*3/uL (2.0-8.3); Neutrophils Percent Auto 71.7 % (45-73); Platelet Count 354 X10*3/uL (160-400); Red Blood Count 4.32 X10*6/uL (4.20-5.50); Red Cell Distribution Width 13.4 % (11.0-16.0)
== END 2023-08-08 08:52 | disposition home or self-care (01) ==
LOC: HO.BBR 08:51
PROVIDERS: PCP Internal Medicine; Visit Provider Internal Medicine Medical Oncology
DX: D75.1 Secondary polycythemia (principal)
CPT/HCPCS: 36415; 85025; 99195

== ENCOUNTER 2023-09-20 08:24 | Outpatient (REF) | payer MEDICARE, SELFPAY ==
[2023-09-20 08:41] LABS: MANUAL DIFF FLAG NO
[2023-09-20 09:39] LABS: Basophils Percent Auto 0.4 % (0-2); Eosinophils Absolute Auto 0.1 X10*3/uL (0.0-0.4); Eosinophils Percent Auto 1.9 % (0-4); Hematocrit 41.5 % (37.0-47.0); Hemoglobin 13.4 g/dl (12.0-16.0); Imm Gran Abs Auto 0.02 X10*3/uL (0.00-0.03); Imm Gran Pct Auto 0.3 % (0.0-0.4); Lymphocytes Absolute Auto 1.3 X10*3/uL (1.2-4.9); Lymphocytes Percent Auto 17.5 % (20-40); Mean Corpuscular HGB Conc 32.3 g/dl (31.0-35.0); Mean Corpuscular Hemoglobin 32.8 pg (27.0-33.0); Mean Corpuscular Volume 101.5 fL (80.0-98.0); Mean Platelet Volume 10.7 fL (9.4-12.3); Monocytes Absolute Auto 0.6 X10*3/uL (0.1-1.2); Neutrophils Absolute Auto 5.2 x10*3/uL (2.0-8.3); Neutrophils Percent Auto 71.9 % (45-73); Platelet Count 325 X10*3/uL (160-400); Red Blood Count 4.09 X10*6/uL (4.20-5.50); Red Cell Distribution Width 13.9 % (11.0-16.0); White Blood Count 7.2 X10*3/uL (4.8-10.8)
[2023-09-20 10:15] LABS: Cholesterol 151 mg/dL (<200); HDL Cholesterol 39 mg/dL (>40); LDL Cholesterol Calculated 93 mg/dL (<100); Triglycerides 97 mg/dL (<150)
[2023-09-20 10:19] LABS: Alanine Aminotransferase 20 U/L (0-31); Albumin Level 3.9 g/dL (3.5-5.0); Alkaline Phosphatase 77 U/L (39-117); Anion Gap 15 (12-20); Aspartate Amino Transferase 19 U/L (5-31); Bilirubin Total 0.5 mg/dL (0.0-1.0); Blood Urea Nitrogen 17 mg/dL (9-16); Calcium 9.4 mg/dL (8.4-10.2); Carbon Dioxide 25 mmol/L (22-29); Chloride 109 mmol/L (96-108); Estimated Glomerular Filt Rate > 60; Glucose Random 98 mg/dL (60-115); Potassium 4.6 mmol/L (3.3-5.1); Sodium 144 mmol/L (135-145); Total Protein 7.2 g/dL (6.5-8.0)
[2023-09-20 10:27] LABS: Ferritin 20 ng/mL (10-250)
== END 2023-09-20 08:25 | disposition home or self-care (01) ==
LOC: HO.LAB 08:24
PROVIDERS: Absent Provider Internal Medicine; PCP Internal Medicine; Visit Provider Internal Medicine Medical Oncology
DX: Z00.00 Encounter for general adult medical examination without abnormal findings (principal); E78.00 Pure hypercholesterolemia, unspecified; I10 Essential (primary) hypertension; M48.062 Spinal stenosis, lumbar region with neurogenic claudication; E61.1 Iron deficiency; E66.9 Obesity, unspecified; C50.412 Malignant neoplasm of upper-outer quadrant of left female breast
CPT/HCPCS: 36415; 80053; 80061; 82728; 85025

== ENCOUNTER 2023-10-09 07:49 | Outpatient (REF) | payer MEDICARE, SELFPAY ==
[2023-10-09 08:01] LABS: MANUAL DIFF FLAG NO
[2023-10-09 08:03] LABS: Basophils Absolute Auto 0.1 X10*3/uL (0.0-0.2); Basophils Percent Auto 0.7 % (0-2); Eosinophils Absolute Auto 0.1 X10*3/uL (0.0-0.4); Eosinophils Percent Auto 1.5 % (0-4); Hemoglobin 13.6 g/dl (12.0-16.0); Imm Gran Abs Auto 0.02 X10*3/uL (0.00-0.03); Imm Gran Pct Auto 0.3 % (0.0-0.4); Lymphocytes Absolute Auto 1.5 X10*3/uL (1.2-4.9); Lymphocytes Percent Auto 21.2 % (20-40); Mean Corpuscular HGB Conc 33.2 g/dl (31.0-35.0); Mean Corpuscular Hemoglobin 32.9 pg (27.0-33.0); Mean Platelet Volume 9.7 fL (9.4-12.3); Monocytes Absolute Auto 0.7 X10*3/uL (0.1-1.2); Monocytes Percent Auto 9.4 % (2-11); Neutrophils Absolute Auto 4.9 x10*3/uL (2.0-8.3); Neutrophils Percent Auto 66.9 % (45-73); Platelet Count 341 X10*3/uL (160-400); Red Blood Count 4.14 X10*6/uL (4.20-5.50); Red Cell Distribution Width 13.6 % (11.0-16.0); White Blood Count 7.3 X10*3/uL (4.8-10.8)
== END 2023-10-09 07:50 | disposition home or self-care (01) ==
LOC: HO.BBR 07:49
PROVIDERS: PCP Internal Medicine; Visit Provider Internal Medicine Medical Oncology
DX: D75.1 Secondary polycythemia (principal)
CPT/HCPCS: 36415; 85014; 85018; 85025; 99195

== ENCOUNTER 2023-10-15 17:42 | Emergency (ER) | payer MEDICARE, SELFPAY ==
--- NOTE | ~2023-10-15 | CT_ITS ---
EXAMINATION: CT SOFT TISSUE NECK WITH CONTRAST CLINICAL INFORMATION: Rule out abscess. History of peritonsillar cellulitis. COMPARISON: 10/06/2021 TECHNIQUE: Following the intravenous administration of 60 mL of Omnipaque 350 intravenous contrast, helical imaging was performed in the axial plane with generation of coronal and sagittal reformatted images. This CT examination was performed using dose optimization techniques as appropriate, variously including the following: *Automated exposure control *Adjustment of mA and/or kV according to patient size (this includes techniques or standardized protocols for targeted exams where dose is matched to indication/reason for exam; i.e. extremities or head) *Use of iterative reconstruction technique DLP: 575 mGy-cm FINDINGS: Enlargement of the palatine tonsils is noted and is more symmetric as compared to the prior study. Dystrophic calcifications are present within the inferior aspects of both tonsils. The previously seen reticulation of the peritonsillar fat has improved as compared to prior, consistent with improvement in the peritonsillar inflammation. No tonsillar or peritonsillar fluid collections are identified. Tonsillar enlargement results in airway narrowing which is more pronounced as compared to prior. Dental amalgam produces beam hardening artifact which does slightly obscure assessment of the tonsils. No additional contour abnormality or pathologic enhancement is seen within the oral cavity or pharyngeal mucosal space. The parapharyngeal fat is preserved. No extra mucosal soft tissue mass or fluid collection is seen. No retropharyngeal fluid collection is seen. No cervical adenopathy is identified. The parotid glands are homogeneous in attenuation. The submandibular glands are normal. The laryngeal structures are normal. The carotid sheath vasculature opacify normally. Atherosclerotic calcifications are present in the carotid bulbs without flow-limiting stenoses. The thyroid gland is normal. The superior mediastinum is unremarkable. The lung apices are clear. The mastoid air cells and visualized portions of the paranasal sinuses are well-aerated. The temporomandibular joints are normal. Mild apical periodontitis at the right first maxillary molar. Moderate degenerative disc disease is again noted at C5-C6 with at least mild central canal narrowing and bilateral neural foraminal encroachment. The imaged portions of the brain parenchyma are unremarkable. CT/CT soft tissue neck w IV con IMPRESSION: 1. Enlargement of the palatine tonsils is more symmetric as compared to prior and results in airway narrowing. Surrounding peritonsillar inflammation is improved as compared to prior. No tonsillar or peritonsillar abscesses are identified. 2. Moderate degenerative disc disease at C5-C6.
--- NOTE | 2023-10-15 17:46 | ED_ITS ---
HPI - URI/Sore Throat General Chief Complaint: General Medical Stated Complaint: hard time breathing/sore throat Time Seen by Provider: 10/15/23 20:49 Source: patient Mode of arrival: ambulatory Limitations: no limitations History of Present Illness ED Provider: Dr. Tammie Sandoval HPI Narrative: Patient comes to the emergency room complaining of a sore throat. Patient states that about 2 years ago she was diagnosed with tonsillar cellulitis, and is concerned that this feels about the same. Patient states that she has a sensation that her throat is swelling up in the back of her throat. Patient is still able to swallow saliva, control her own secretions. Patient denies chest pain. Patient denies any recent URI infections, no coughing, no fever or chills. Related Data Home Medications ?Medication ?Instructions ?Recorded ?Confirmed lorazepam 1 mg tablet 1 mg PO DAILY PRN Anxiety 03/24/20 02/21/23 losartan 100 1 tab PO DAILY 10/06/21 02/21/23 mg-hydrochlorothiazide 25 mg tablet pravastatin 80 mg tablet 1 tab PO DAILY 10/06/21 02/21/23 cholecalciferol (vitamin D3) 50 50 mcg PO DAILY 09/20/22 02/21/23 mcg (2,000 unit) tablet cyanocobalamin (vitamin B-12) 1,000 mcg PO DAILY 02/20/23 02/21/23 1,000 mcg tablet (Vitamin B-12) Previous Rx's ?Medication ?Instructions ?Recorded ibuprofen 600 mg tablet 600 mg PO TID PRN fever or pain 10/15/23 #20 tabs Allergies Allergy/AdvReac Type Severity Reaction Status Date / Time gluten [Gluten] Allergy Intermediate Gastrointestinal Verified 10/15/23 17:49 Upset environmental allergies Allergy Unknown Unknown Verified 10/15/23 17:49 egg [Egg] AdvReac Intermediate Gastrointestinal Verified 10/15/23 17:49 Upset Review of Systems 2 Review of Systems: Constitutional : No Weight loss, No Fever, No Chills, No Night Sweats, No Fatigue, No Malaise ENT/Mouth : No Hearing loss, No Ear Pain, No Nasal Congestion, No Sinus Pain, No Hoarseness, complaining of sore throat and sensation of throat swelling, No Rhinorrhea, No Swallowing Difficulty Eyes: No Eye Pain, No Swelling, No Redness, No Foreign Body, No Discharge, No Vision Changes Cardiovascular : No Chest Pain, No SOB, No Dyspnea on Exertion, No Orthopnea, No Edema, No Palpitations Respiratory : No Cough, No Sputum, No Wheezing, No Smoke Exposure, No Dyspnea Gastrointestinal : No Nausea, No Vomiting, No Diarrhea, No Constipation, No abdominal Pain, No Hematochezia, No Melena Genitourinary : no irregular bleeding, No Dysuria, No Urinary Frequency, No Hematuria, No Urinary Incontinence, No Urgency, No Flank Pain, No Urinary Flow Changes, No Hesitancy Musculoskeletal : No joint pain, No Myalgias, No Joint Swelling Skin : No Skin Lesions, No rash Neuro : No Weakness, No Numbness, No Paresthesias, No Loss of Consciousness, No Dizziness, No Headache Psych : No Anxiety/Panic, No Depression, No SI/HI/AH/VH, No Social Issues, Heme/Lymph: No Bruising, No Bleeding,No Lymphadenopathy Endocrine : No Polyuria, No Polydipsia, No Temperature Intolerance PMFSH Past Medical History Medical History Polycythemia Orthostatic dizziness Hypercholesterolemia Hypertension History of left breast cancer Surgical History Hx laparoscopic cholecystectomy (09/20/22) History of lymph node excision History of lumpectomy of left breast Social History Social History (Updated 02/20/23 @ 10:28 by Gabriella Giang RN) Household Members: None Housing: House Are you a primary ambulatory care to a significant other at home: No Do you presently have visiting nurse or other home services: No Alcohol intake: current Alcohol intake frequency: other Patient Tobacco Use Status: Current someday Tobacco user Tobacco use type: Cigarette Years Smoked: 40 Smoked in Last 30 Days: No Second Hand Smoke Exposure: No Advance Directives: No Advance Directives Information Provided: Yes Do you have a plan to hurt others: No Plan service: No Current occupational status: employed Physical Exam 2 Vital Signs: Vital Signs: Last Vital Signs Temp 97.6 F 10/15/23 23:03 Pulse 84 10/15/23 23:03 Resp 16 10/15/23 23:03 BP 150/66 H 10/15/23 23:03 Pulse Ox 98 10/15/23 23:03 O2 Del Method Room Air 10/15/23 23:03 BMI result Body Mass Index 40.9 Const: Other: Appearance: Alert. Oriented X3. No acute distress. Eyes: Pupils equal, round and reactive to light. ENT: Large tonsils, no peritonsillar abscess visualized, pharyngeal erythema present no drooling, patient is swallowing secretions Neck: Normal inspection. Neck supple. No lymph nodes noted. No crepitus CVS: Normal heart rate and rhythm. Pulses normal. Normal S1 and S2 Respiratory: No respiratory distress. Breath sounds normal. No Wheezing. No rales Abdomen: Soft and nontender. No rigidity. No distention. Skin: Skin warm and dry. Normal skin color. Normal skin turgor. Extremities: No lower extremity edema. No Lacerations. No Rash Neuro: Oriented X 3. No motor deficit. No sensory deficit. Moving all extremities. No slurred speech. CN 2 through 12 grossly intact Psych: calm, cooperative, normal affect Course Course Course Narrative: This is a rapid medical exam. Deferred additional HPI, ROS, PE to primary provider, 68 yo female with history of HTN, HLD, peritonsillar cellulitis here with complaints of left side sore throat, difficulty breathing since last night. No fevers, chills. Tolerating secretions in triage. Will obtain labs, viral testing, strep testing. LESLI Lux APRN Medications Administered Discontinued Medications Generic Name Dose Route Start Last Admin Trade Name Freq PRN Reason Stop Dose Admin Sodium Chloride 1,000 mls @ 999 mls/hr 10/15/23 21:33 10/15/23 22:07 Ns IVCONT 10/15/23 22:33 999 mls/hr .Q1H1M ONE Administration Iohexol 65 ml 10/15/23 21:42 10/15/23 21:42 Iohexol 350 Mg/Ml 100 Ml Infus..Btl IV 10/15/23 21:43 65 ml ONCE ONE Administration Medical Decision Making Medical Decision Making [facility] Narrative: -my interpretation of labs: White blood cell count 13.1, chemistry within normal limits, serology negative for influenza RSV COVID and strep -patient is well-appearing. Vitals are stable, no fever or tachycardia, normal respiratory rate and oxygen saturation, normal blood pressure -CT scan of soft tissue of the neck pending, patient receiving IV fluids after the IV contrast is given. -CT scan of the soft tissue of the neck shows improvement from previous CT scans. [place] tonsils are symmetric, no abscess -patient does not have any fever or chills -patient likely has viral pharyngitis, antibiotics not indicated at this time Differential Diagnosis Differential Diagnoses: The differential diagnosis associated with the presentation includes (Viral pharyngitis, streptococcal pharyngitis, COVID, RSV, pharyngeal/palatine abscess) Admission/Observation Consideration of admission/observation: Escalation of care including admission/observation considered (Given patient's past medical history, observation was considered) Lab Data MDM Lab Attestation statement: I reviewed the patient's lab results. 10/15/23 18:55 10/15/23 18:55 Labs: Lab Results 10/15/23 Range/Units 18:55 WBC 13.1 H (4.8-10.8) X10*3/uL RBC 4.13 L (4.20-5.50) X10*6/uL Hgb 13.8 (12.0-16.0) g/dl Hct 41.4 (37.0-47.0) % MCV 100.2 H (80.0-98.0) fL MCH 33.4 H (27.0-33.0) pg MCHC 33.3 (31.0-35.0) g/dl RDW 13.9 (11.0-16.0) % Plt Count 325 (160-400) X10*3/uL MPV 10.0 (9.4-12.3) fL Immature Gran % (Auto) 0.4 (0.0-0.4) % Neut % (Auto) 79.4 H (45-73) % Lymph % (Auto) 12.3 L (20-40) % [place] % (Auto) 6.4 (2-11) % Eos % (Auto) 1.1 (0-4) % Baso % (Auto) 0.4 (0-2) % Lymph # (Auto) 1.6 (1.2-4.9) X10*3/uL [place] # (Auto) 0.8 (0.1-1.2) X10*3/uL Eos # (Auto) 0.1 (0.0-0.4) X10*3/uL Baso # (Auto) 0.1 (0.0-0.2) X10*3/uL Abs Immat Gran (auto) 0.05 H (0.00-0.03) X10*3/uL Absolute Neuts (auto) 10.4 H (2.0-8.3) x10*3/uL Absolute Nucleated RBC 0.000 (0.0-0.012) X10*3/uL Nucleated RBC % (auto) 0.0 (0.0-0.2) /100WBC Sodium 141 (135-145) mmol/L Potassium 3.8 (3.3-5.1) mmol/L Chloride 107 (96-108) mmol/L Carbon Dioxide 23 (22-29) mmol/L Anion Gap 15 (12-20) BUN 17 H (9-16) mg/dL Creatinine 0.86 (0.5-1.4) mg/dL Estim Creat Clear Calc 79.0 Estimated GFR > 60 Random Glucose 83 (60-115) mg/dL Calcium 9.4 (8.4-10.2) mg/dL Influenza Type A (PCR) NEGATIVE (Negative) Influenza Type B (PCR) NEGATIVE (Negative) RSV RNA Qual (PCR) NEGATIVE (Negative) SARS-CoV-2 RNA (RT-PCR) NEGATIVE (Negative) S. pyogenes GrpA HANS Negative (Negative) Independent Interpretation I performed an independent interpretation of an: CT Scan Radiology Impression Discussion of test interpretation with radiology: I have reviewed the radiologist's reading. Radiologist Impression: FINDINGS: Enlargement of the palatine tonsils is noted and is more symmetric as compared to the prior study. Dystrophic calcifications are present within the inferior aspects of both tonsils. The previously seen reticulation of the peritonsillar fat has improved as compared to prior, consistent with improvement in the peritonsillar inflammation. No tonsillar or peritonsillar fluid collections are identified. Tonsillar enlargement results in airway narrowing which is more pronounced as compared to prior. Dental amalgam produces beam hardening artifact which does slightly obscure assessment of the tonsils. No additional contour abnormality or pathologic enhancement is seen within the oral cavity or pharyngeal mucosal space. The parapharyngeal fat is preserved. No extra mucosal soft tissue mass or fluid collection is seen. No retropharyngeal fluid collection is seen. No cervical adenopathy is identified. The parotid glands are homogeneous in attenuation. The submandibular glands are normal. The laryngeal structures are normal. The carotid sheath vasculature opacify normally. Atherosclerotic calcifications are present in the carotid bulbs without flow-limiting stenoses. The thyroid gland is normal. The superior mediastinum is unremarkable. The lung apices are clear. The mastoid air cells and visualized portions of the paranasal sinuses are well-aerated. The temporomandibular joints are normal. Mild apical periodontitis at the right first maxillary molar. Moderate degenerative disc disease is again noted at C5-C6 with at least mild central canal narrowing and bilateral neural foraminal encroachment. The imaged portions of the brain parenchyma are unremarkable. CT/CT soft tissue neck w IV con IMPRESSION: 1. Enlargement of the palatine tonsils is more symmetric as compared to prior and results in airway narrowing. Surrounding peritonsillar inflammation is improved as compared to prior. No tonsillar or peritonsillar abscesses are identified. 2. Moderate degenerative disc disease at C5-C6. Critical Care Time Critical Care Time Critical Care Time: Yes Total Critical Care Time: 45 Attestation: I have personally provided critical care time. Time includes review of lab data, radiology results, discussion with consultants, and monitoring for potential decompensation. Intervention performed as documented. Discharge Plan Discharge Clinical Impression: Acute viral pharyngitis Patient Disposition: Home, Self-Care Instructions: Pharyngitis (ED) Additional Instructions: Please follow-up with your primary care physician tomorrow. If you have any worsening or new symptoms, please return to the emergency room or call 911 Prescriptions: New ibuprofen 600 mg tablet 600 mg PO TID PRN (Reason: fever or pain) Qty: 20 0RF No Action losartan-hydrochlorothiazide 100-25 mg tablet 1 tab PO DAILY pravastatin 80 mg tablet 1 tab PO DAILY cholecalciferol (vitamin D3) 50 mcg (2,000 unit) Tablet 50 mcg PO DAILY cyanocobalamin (vitamin B-12) [Vitamin B-12] 1,000 mcg Tablet 1,000 mcg PO DAILY lorazepam 1 mg tablet 1 mg PO DAILY PRN (Reason: Anxiety) Print Language: Arabic
[2023-10-15 17:48] VITALS: BP 144/56; PULSE 76; RESP 20; TEMP 37.2; O2SAT 95; BMI 40.9
[2023-10-15 19:01] LABS: MANUAL DIFF FLAG NO
[2023-10-15 19:02] LABS: Basophils Absolute Auto 0.1 X10*3/uL (0.0-0.2); Basophils Percent Auto 0.4 % (0-2); Eosinophils Absolute Auto 0.1 X10*3/uL (0.0-0.4); Eosinophils Percent Auto 1.1 % (0-4); Hematocrit 41.4 % (37.0-47.0); Hemoglobin 13.8 g/dl (12.0-16.0); Imm Gran Abs Auto 0.05 X10*3/uL (0.00-0.03); Imm Gran Pct Auto 0.4 % (0.0-0.4); Lymphocytes Absolute Auto 1.6 X10*3/uL (1.2-4.9); Lymphocytes Percent Auto 12.3 % (20-40); Mean Corpuscular HGB Conc 33.3 g/dl (31.0-35.0); Mean Corpuscular Hemoglobin 33.4 pg (27.0-33.0); Mean Corpuscular Volume 100.2 fL (80.0-98.0); Monocytes Absolute Auto 0.8 X10*3/uL (0.1-1.2); Monocytes Percent Auto 6.4 % (2-11); Neutrophils Absolute Auto 10.4 x10*3/uL (2.0-8.3); Neutrophils Percent Auto 79.4 % (45-73); Platelet Count 325 X10*3/uL (160-400); Red Blood Count 4.13 X10*6/uL (4.20-5.50); Red Cell Distribution Width 13.9 % (11.0-16.0); White Blood Count 13.1 X10*3/uL (4.8-10.8)
[2023-10-15 19:17] LABS: Anion Gap 15 (12-20); Blood Urea Nitrogen 17 mg/dL (9-16); Calcium 9.4 mg/dL (8.4-10.2); Carbon Dioxide 23 mmol/L (22-29); Chloride 107 mmol/L (96-108); Estimated Glomerular Filt Rate > 60; Glucose Random 83 mg/dL (60-115); Potassium 3.8 mmol/L (3.3-5.1); Sodium 141 mmol/L (135-145)
[2023-10-15 19:32] LABS: IDNOW Serial# 08D9AD1C; Strep A Nucleic Acid Negative (Negative)
[2023-10-15 19:39] LABS: Influenza A PCR NEGATIVE (Negative); Influenza B PCR NEGATIVE (Negative); Resp Syncy Virus RNA Qual PCR NEGATIVE (Negative); SARS COV2 PCR INHOUSE NEGATIVE (Negative)
[2023-10-15] MEDS: iohexoL 350 MG/ML 100 ML INFUS..BTL 65 ML IV (21:42)
[2023-10-15] MEDS: 0.9 % Sodium Chloride 1,000 ML 999 ML IVCONT (22:07)
[2023-10-15 23:03] VITALS: BP 150/66; PULSE 84; RESP 16; TEMP 36.4; O2SAT 98
[2023-10-16 00:21] VITALS: BP 150/66; PULSE 84; RESP 16; TEMP 36.4; O2SAT 98
[2023-10-16 00:24] VITALS: BP 150/66; PULSE 84; RESP 16; TEMP 36.4; O2SAT 98
== END 2023-10-16 00:23 | disposition home or self-care (01) ==
PROVIDERS: Nurse Practitioner Family; Emergency Provider Emergency Medicine
DX: J02.8 Acute pharyngitis due to other specified organisms (principal); R06.02 Shortness of breath; R11.2 Nausea with vomiting, unspecified; M54.2 Cervicalgia; Z03.818 Encounter for observation for suspected exposure to other biological agents ruled out; Z79.899 Other long term (current) drug therapy
CPT/HCPCS: 0241U; 36415; 70491; 80048; 85025; 87651; 96360; 96361; 99284; Q9967

== ENCOUNTER 2023-12-06 14:51 | Outpatient (REF) | payer MEDICARE, SELFPAY ==
[2023-12-06 15:03] LABS: MANUAL DIFF FLAG NO
[2023-12-06 15:05] LABS: Basophils Absolute Auto 0.1 X10*3/uL (0.0-0.2); Basophils Percent Auto 0.5 % (0-2); Eosinophils Absolute Auto 0.2 X10*3/uL (0.0-0.4); Eosinophils Percent Auto 2.1 % (0-4); Hematocrit 40.6 % (37.0-47.0); Hemoglobin 13.5 g/dl (12.0-16.0); Imm Gran Abs Auto 0.02 X10*3/uL (0.00-0.03); Imm Gran Pct Auto 0.2 % (0.0-0.4); Lymphocytes Absolute Auto 1.8 X10*3/uL (1.2-4.9); Lymphocytes Percent Auto 18.5 % (20-40); Mean Corpuscular HGB Conc 33.3 g/dl (31.0-35.0); Mean Corpuscular Volume 99.3 fL (80.0-98.0); Mean Platelet Volume 9.6 fL (9.4-12.3); Monocytes Absolute Auto 0.8 X10*3/uL (0.1-1.2); Monocytes Percent Auto 7.8 % (2-11); Neutrophils Absolute Auto 6.8 x10*3/uL (2.0-8.3); Neutrophils Percent Auto 70.9 % (45-73); Platelet Count 327 X10*3/uL (160-400); Red Blood Count 4.09 X10*6/uL (4.20-5.50); Red Cell Distribution Width 14.6 % (11.0-16.0); White Blood Count 9.6 X10*3/uL (4.8-10.8)
== END 2023-12-06 14:52 | disposition home or self-care (01) ==
LOC: HO.BBR 14:51
PROVIDERS: Visit Provider Internal Medicine Medical Oncology
DX: D75.1 Secondary polycythemia (principal)
CPT/HCPCS: 36415; 85014; 85018; 85025; 99195

== ENCOUNTER 2023-12-21 13:24 | Outpatient (AMB) | payer MEDICARE, SELFPAY ==
--- NOTE | 2023-12-21 13:30 | HO.SPINEOV ---
Intake Visit Reasons: spinal stenosis Intake Note: Ms. Dee is here today c/o low back pain. Family Medicine Resident Required: No Allergies gluten [Gluten] Allergy (Intermediate, Verified 12/21/23 13:41) Gastrointestinal Upset environmental allergies Allergy (Unknown, Verified 12/21/23 13:41) Unknown egg [Egg] Adverse Reaction (Intermediate, Verified 12/21/23 13:41) Gastrointestinal Upset Assessment & Plan Assessment & Plan (1) Back pain: Code(s): M54.9 - Dorsalgia, unspecified Category: Medical Plan Mrs Dee is a self-referred patient who came in the office today for evaluation of chronic back pain. She has a 68-year-old female who has had back pain for years, it centered in the middle of her lumbar spine, aggravated with standing and walking. It improves if she sits down. She has no pain radiating down the legs, no tingling numbness in the lower extremities etc.. She did see Dr. Flores at [facility] point and it was felt as though she was not a surgical candidate. The patient had been doing physical therapy and chiropractic over the last few years. The chiropractor does help the upper back a little bit, but no help with the lower back. Physical therapy was not helpful. She has an MRI showing degenerative disc disease amongst other findings. She does take diclofenac and that seems to help. PMH: She had breast cancer about 6-7 years ago, had a lumpectomy and XRT in his been recovered ever since with no issues. History of hypertension, polycythemia, high cholesterol, cholecystectomy. Denies any history of heart attack, stroke, pulmonary issues, liver disease, renal disease, intestinal surgery, bleeding disorders, blood clots etc. Social hx: She does smoke about half a pack a day, no alcohol or any recreational drugs Medications: Diclofenac, lorazepam, losartan, hydrochlorothiazide, pravastatin Allergies: None Physical exam: Awake alert oriented no acute distress, she has tenderness to palpation in the middle of her lower back, strength and reflexes in the lower extremities are normal. Imaging review: There is a lumbar MRI done at [facility], this demonstrates scoliotic curvature of the spine, she has significant disc break down at L2-3 with type 2 Modic endplate changes. The patient also has central stenosis at this level. She has a large lateral bridging osteophyte. It has not clear if this is completely fused. She has disc degeneration at L3-4 with significant facet hypertrophy. She also has moderate stenosis at this level as well. She has other lesser degrees of degeneration at other levels of the spine. Radiology's reporting a small syrinx at the lower aspect of the thoracic cord and a fatty filum as well. The patient brought with her some x-rays that were done her chiropractors office and can see with standing she has a significant dextroscoliosis. The apex appears to be at the L2-3 L3-4 levels. Impression: 68-year-old female with chronic low back pain in the setting of significant collapse of the discs at L2-3 and L3-4 with type 2 Modic endplate changes, bridging osteophytes and facet hypertrophy as well as scoliosis. I went over her films with her explain to her that in the setting of radiographic findings like hers, back pain can have many sources and that surgery would be a last option. She has contemplated the idea of surgery, but never really knew would involve. We went over the fact that typically Dr. Hong would perform spinal fusion for back pain in the setting of scoliosis, including interbody cages to correct the scoliotic curvature as well as pedicle screws and rods. Right now she has not sure if she would like to have an operation to this extent. I told her that most of our patients usually would have some kind of pain management evaluation and/or injections before surgery just to consider as an alternative. I am going to send her to Dr. Escudero and have him evaluate her and see what he thinks would be best for an injection. When she is ready to consider surgery, she will give me a call. In the meantime I will review the imaging with Dr. Hong and see if he has any other thoughts or a specific surgical plan should she decide to move ahead with surgery down the road. Thank you for allowing us to care for your patient. The total time spent with this visit with this patient was 45 minutes reviewing history, physical exam, lumbar imaging review, and implementation of treatment plan or further diagnostic testing Surya Hong MD,PhD [facility] Orders: Referrals Physiatry Referral M54.9 - Dorsalgia, unspecified Coding Level of Care Code New Pt Level 4 (61130) Diagnoses Back pain M54.9
== END 2023-12-21 14:19 | disposition home or self-care (01) ==
PROVIDERS: Visit Provider Physician Assistant
DX: M54.9 Dorsalgia, unspecified (principal)
CPT/HCPCS: 99204

== ENCOUNTER → 2023-12-21 13:24 | Outpatient (BNVA) | payer MEDICARE, SELFPAY | PROVIDERS: Visit Provider Physician Assistant | DX: G89.29 Other chronic pain (principal); M54.9 Dorsalgia, unspecified | CPT/HCPCS: 99202 ==

== ENCOUNTER 2024-01-24 13:56 | Outpatient (REF) | payer MEDICARE, SELFPAY ==
[2024-01-24 14:09] LABS: Basophils Percent Auto 0.4 % (0-2); Eosinophils Absolute Auto 0.2 X10*3/uL (0.0-0.4); Hematocrit 43.6 % (37.0-47.0); Hemoglobin 14.3 g/dl (12.0-16.0); Imm Gran Abs Auto 0.03 X10*3/uL (0.00-0.03); Imm Gran Pct Auto 0.3 % (0.0-0.4); Lymphocytes Absolute Auto 1.6 X10*3/uL (1.2-4.9); Lymphocytes Percent Auto 15.6 % (20-40); MANUAL DIFF FLAG NO; Mean Corpuscular HGB Conc 32.8 g/dl (31.0-35.0); Mean Corpuscular Hemoglobin 33.3 pg (27.0-33.0); Mean Corpuscular Volume 101.4 fL (80.0-98.0); Mean Platelet Volume 9.9 fL (9.4-12.3); Monocytes Absolute Auto 0.8 X10*3/uL (0.1-1.2); Monocytes Percent Auto 7.7 % (2-11); Neutrophils Absolute Auto 7.4 x10*3/uL (2.0-8.3); Platelet Count 312 X10*3/uL (160-400); Red Cell Distribution Width 14.8 % (11.0-16.0); White Blood Count 9.9 X10*3/uL (4.8-10.8)
== END 2024-01-24 13:57 | disposition home or self-care (01) ==
LOC: HO.BBR 13:56
PROVIDERS: Visit Provider Internal Medicine Medical Oncology
DX: D75.1 Secondary polycythemia (principal)
CPT/HCPCS: 36415; 85014; 85018; 85025; 99195

== ENCOUNTER 2024-03-26 14:02 | Outpatient (REF) | payer MEDICARE, SELFPAY ==
[2024-03-26 14:15] LABS: MANUAL DIFF FLAG NO
[2024-03-26 14:16] LABS: Basophils Absolute Auto 0.1 X10*3/uL (0.0-0.2); Basophils Percent Auto 0.5 % (0-2); Eosinophils Absolute Auto 0.2 X10*3/uL (0.0-0.4); Eosinophils Percent Auto 1.5 % (0-4); Hematocrit 41.7 % (37.0-47.0); Hemoglobin 13.5 g/dl (12.0-16.0); Imm Gran Abs Auto 0.03 X10*3/uL (0.00-0.03); Imm Gran Pct Auto 0.3 % (0.0-0.4); Lymphocytes Absolute Auto 1.9 X10*3/uL (1.2-4.9); Lymphocytes Percent Auto 17.3 % (20-40); Mean Corpuscular HGB Conc 32.4 g/dl (31.0-35.0); Mean Corpuscular Hemoglobin 32.4 pg (27.0-33.0); Mean Platelet Volume 9.7 fL (9.4-12.3); Monocytes Percent Auto 9.3 % (2-11); Neutrophils Absolute Auto 7.9 x10*3/uL (2.0-8.3); Neutrophils Percent Auto 71.1 % (45-73); Platelet Count 340 X10*3/uL (160-400); Red Blood Count 4.17 X10*6/uL (4.20-5.50); Red Cell Distribution Width 14.3 % (11.0-16.0)
--- OUTSIDE RECORDS SUMMARY | 2024-03-27 21:57 | XMS_ITS ---
Author Organization Rajinder Guerrero III, MD Address [address] [place] [place] [address] Care Team Providers Care Roofer Gypsum Name Role Phone Roderick TAPIA, Deandra Primary Care Provider Rajinder Camargo Unavailable [phone] REASON FOR VISIT Follow-up Social History Sex Assigned At : Social History Observation Description Sex Assigned At Female Encounters Encounter Location Date Provider Diagnosis Rajinder Guerrero III, MD [address] [place] [address] [place] [address] 03/25/2024 Rajinder Guerrero Plan Of Treatment Next Appt Details Provider Name:Rajinder Guerrero, 04/18/2024 09:00:00 AM, [address] [place] [address] [place], [address], Progress Notes * Larisa DEEDOB:1955 (69 yo F)Acc No.[id number]:03/25/2024 Progress Notes Patient:?Larisa DEE Provider:?Rajinder Guerrero MD :1955???Age:69 Y???Sex:Female D ate:03/25/2024 Address:[address] [place], [id number] Pcp:Deandra Vaughn MD Subjective: * Chief Complaints: * ???1. Follow-up. * Medical History:? Objective: * Vitals:? Assessment: Plan: * Treatment: * Images: * The named appointment provid er may or may not be the originator of this progress note, and it is not deemed complete until electronically signed by the appointment provider. Sign off status: Pending * Provider:?Rajinder Guerrero MD Date:?12/2023 Generated for Jannie stover/Baljit/Annalise on:?03/27/2024 09:57 PM EST
--- OUTSIDE RECORDS SUMMARY | 2024-03-27 21:57 | XMS_ITS ---
Author Organization Rajinder Guerrero III, MD Address [address] [place] [address] Care Team Providers Care Psychologist Social Name Role Phone Roderick TAPIA, [facility] Primary Care Provider Rajinder Camargo Unavailable [phone] Allergies Allergen (clinical drug ingredient) Drug/Non Drug Allergy documented on EMR Reaction Allergy Type Onset Date Status No Known Drug Allergy Unknown Drug Allergy Active REASON FOR VISIT erythrocytosis, History of iron deficiency, Breast cancer, Tobacco dependence, Raynaud's syndrome Medications Medication SIG (Take, Route, Frequency, Duration) Notes Start Date End Date Status LORazepam 1 MG 1 tablet Orally once a day Active Pravastatin Sodium 40 MG 1 tablet Orally Once a day Active Losartan Potassium 50 MG 1 tablet Orally Once a day Active Social History Tobacco Use: [...] Problem Status W/U Status Risk Notes Problem [id number] Morbid obesity (E66.01) Active confirmed She has gained 8 pounds and her body mass index is now 40. We have reviewed diet and nutrition. We have made a plan to lose weight at a rate of one half of a pound per week through a diet restricted in fat calories and sodium combined with regular physical activity. Vital Signs Temperature 97.7 degrees Fahrenheit 05/19/19 24 Blood pressure systolic 136 mm Hg 05/19/19 24 Blood pressure diastolic 80 mm Hg 024 Heart Rate 94 /min 05/19/2023 Height 65 in 05/19/2023 Weight 244 lbs 05/19/2023 BMI 40.6 kg/m2 05/19/2023 Encounters Encounter Location Date Provider Diagnosis Rajinder Guerrero III, MD [address] [place] [address] [place] [address] 05/19/2023 Rajinder Guerrero Iron deficiency E61. 1 ; Malignant neoplasm of upper-outer quadrant of left female breast, 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 ; Morbid obesity E66.01 ; Celiac disease K90.0 ; Tobacco dependence F17.200 ; Raynaud's syndrome without gangrene I73.00 ; Erythrocytosis D75.1 and Lobular carcinoma of left breast, stage 1 C50.912 Assessments Encounter Date Diagnosis (ICD Code) Assessment Notes T reatment Notes Treatment Clinical Notes 05/19/2023 Iron deficiency (ICD-10 - E61.1) She is no longer anemic and a mean cell volume is macrocytic. She'll be observed carefully. The iron will be continued. Comprehensive blood work with a ferritin has been ordered. 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 We have reviewed diet and nutrition. We have made a plan to lose weight at a rate of one half of a pound per week through a diet restricted in fat calories and sodium combined with regular physical activity. 05/19/2023 Celiac disease (ICD-10 - K90.0) She has had no change in her gastrointestinal symptoms. Her weight is stable and she seems happy and well. No treatment is necessary today. 05/19/2023 Tobacco dependence (ICD-10 - F17.200) She continues to smoke and I have made her aware of the health consequences doing so. I have referred her to the smoking cessation program at [facility]. 05/19/2023 Raynaud's syndrome without gangrene (ICD-10 - I73.00) No further episodes of Raynaud's syndrome have occurred since her last visit. 05/19/2023 Erythrocytosis (ICD-10 - D75.1) She will continue the phlebotomy if needed. At this time her hematocrit and hemoglobin are normal. Currently, the increased red cell mass is well controlled. 05/19/2023 Lobular carcinoma of left breast, stage 1 (ICD-10 - C50.912) There is no sign of recurrence. The radiation changes are fading. All scars are well-healed. No masses are palpable. She will continue on the anastrozole for 5 years. She is having no side effects from the drug. Plan Of Treatment Medication Medication Name Sig Start Date Stop Date Notes LORazepam 1 MG 1 tablet Orally once a day Pravastatin Sodium 40 MG 1 tablet Orally Once a day Losartan Potassium 50 MG 1 tablet Orally Once a day Pending Test Test Name Order Date PROFILE, RANDOM (COMPREHENSIVE METABOLIC ) 05/19/2023 CBC WITH AUTO DIFF 05/19/2023 Ferritin 05/19/2023 Next Appt Details Follow Up: 4 Months, Reason: OV Provider Name:Rajinder Guerrero, 04/18/2024 09:00:00 AM, [address] [place] [address], [address], Progress Notes * Larisa DEEDOB:1955 (68 yo F)Acc No.[id number]:05/19/2023 Progress Notes Patient:?Larisa Dee Provider:?Rajinder Guerrero MD :1955???Age:68 Y???Sex:Female D ate:05/19/2023 [address] Pcp:Deandra Vaughn MD Subjective: * Chief Complaints: * ???ErythrocytosisHistory of iron deficiencyBreast cancerTobacco dependenceRaynaud's syndrome * HPI: ???COVID-19 Screening:?Questions?Have you experienced fever, chills, cough, sore throat, shortness of breath, difficulty breathing, muscle aches, loss of taste or smell??No ?Have you been exposed to the virus within the last 10 days??No ?Have you travelled internationally in the last 10 days??No ?Have you been exposed to COVID-19 in the past??No ? She returns for a scheduled visit for surveillance of her history carcinoma left breast, history of iron deficiency, tobacco dependence and erythrocytosis. She is feeling healthy and well positioned has gained weight recently. She denies any chest pain shortness of breath bleeding or joint pain. She has been compliant with all of her medications and therapies.She has been faithful with breast self examination with negative results. She is up-to-date with mammography. * ROS:?General/Constitutional:?pain?only normal aches and pains.?Chills?denies.?Fatigue?admits.?Fever?denies.?ENT:?Decreased hearing?denies.?Respiratory:?Cough?non-productive.?Cardiovascular:?Chest pain with exertion?denies.?Dyspnea on exertion?denies.?Shortness of breath?denies.?Gastrointestinal:?Constipation?occasional.?Decreased appetite?denies.?Diarrhea?denies.?Heartburn?denies.?Nausea?denies.?Rectal bleeding?denies.?Vomiting?denies.?Hematology:?bruising?denies.?petechiae?denies.?Swollen glands?none have been noted.?Genitourinary:?Frequent urination?at night.?Musculoskeletal:?Muscle aches?denies.?Painful joints?denies.?Sciatica?denies.?Weakness?denies.?Skin:?Itching?denies.?Rash?denies.?Skin lesion(s)?denies.?Neurologic:?Difficulty speaking?denies.?Dizziness?denies.?Headache?denies.?Low back pain?denies.?Psychiatric:?Depressed mood?denies.? * Medical History:? * Surgical History:?left breas t lumpectomy,SN, invasive lobular carcinoma 06/2017drainage tonsillar abscess 12/2018Cholecystectomy 09/2022 * Hospitalization/Major Diagno stic Procedure:?tonsilitis 09/2021 * Family History:?Father: dece ased 60 yrs, brain cancer, hypertension, diagnosed with Cancer.?Mother: 68 yrs, stroke,angina.?6 brother(s) , 1 sister(s) . 2 son(s) - healthy. .? Two brothers have hypertension. One brother was diagnosed with RSD. His oldest son has celiac disease. * Social History:?Tobacco Use:?Tobacco Use/Smoking?Patient is a?current smoker ?How often do you smoke cigarettes??some days, but not every day ?How many cigarettes a day do you smoke??5 or less ?How soon after you wake up do you smoke your first cigarette??after 60 minutes ?Are you interested in quitting??Thinking about quitting ?Additional Findings: Tobacco User?Light cigarette smoker ((1-9 cigs/day) ?Additional Findings: Tobacco Non-User?Ex-cigarette smoker ???She was born in [place] and is . She has 2 sons and works at [employer] in [place]. * Medications:?TakingLORazepam 1 MG Tablet 1 tablet Orally once a dayPravastatin Sodium 40 MG Tablet 1 tablet Orally Once a dayLosartan Potassium 50 MG Tablet 1 tablet Orally Once a dayTaking LORazepam 1 MG Tablet 1 tablet Orally once a dayTaking Pravastatin Sodium 40 MG Tablet 1 tablet Orally Once a dayTaking Losartan Potassium 50 MG Tablet 1 tablet Orally Once a dayDiscontinuedLORazepam 1 MG Tablet 1 tablet Orally once a dayMedication List reviewed and reconciled with the patientDiscontinued LORazepam 1 MG Tablet 1 tablet Orally once a dayMedication List reviewed and reconciled with the patient * Allergies:?No Known Drug All ergyno[Allergies Verified] Objective: * Vitals:?Ht: 65, Wt:244, BMI: 40.6, BP:136/80, HR:94, Temp:97.7, Wt-k.68. * ???Past Orders: Lab:Complete Blood Count Aut o Diff * Order Date 03/29/2023 01/25/2023 11/21/2022 White Blood Count 9.3 (Ref Range: 4.8-10.8 X10*3/uL) 9.7 (Ref Range: 4.8-10.8 X10*3/uL) 10.5 (Ref Range: 4.8-10.8 X10*3/uL) Red Blood Count 4.40 (Ref Range: 4.20-5.50 X10*6/uL) 4.21 (Ref Range: 4.20-5.50 X10*6/uL) 4.36 (Ref Range: 4.20-5.50 X10*6/uL) Hemoglobin 14.2 (Ref Range: 12.0-16.0 g/dl) 14.0 (Ref Range: 12.0-16.0 g/dl) 14.5 (Ref Range: 12.0-16.0 g/dl) Hematocrit 44.1 (Ref Range: 37.0-47.0 %) 42.6 (Ref Range: 37.0-47.0 %) 44.2 (Ref Range: 37.0-47.0 %) Mean Corpuscular Volume 100.2?H (Ref Range: 80.0-98.0 fL) 101.2?H (Ref Range: 80.0-98.0 fL) 101.4?H (Ref Range: 80.0-98.0 fL) Mean Corpuscular Hemoglobin 32.3 (Ref Range: 27.0-33.0 pg) 33.3?H (Ref Range: 27.0-33.0 pg) 33.3?H (Ref Range: 27.0-33.0 pg) Mean Corpuscular HGB Conc 32.2 (Ref Range: 31.0-35.0 g/dl) 32.9 (Ref Range: 31.0-35.0 g/dl) 32.8 (Ref Range: 31.0-35.0 g/dl) Red Cell Distribution Width 14.2 (Ref Range: 11.0-16.0 %) 14.0 (Ref Range: 11.0-16.0 %) 14.3 (Ref Range: 11.0-16.0 %) Platelet Count 345 (Ref Range: 160-400 X10*3/uL) 352 (Ref Range: 160-400 X10*3/uL) 349 (Ref Range: 160-400 X10*3/uL) Mean Platelet Volume 9.6 (Ref Range: 9.4-12.3 fL) 9.3?L (Ref Range: 9.4-12.3 fL) 9.8 (Ref Range: 9.4-12.3 fL) Neutrophils Percent Auto 69.3 (Ref Range: 45-73 %) 69.5 (Ref Range: 45-73 %) 73.8?H (Ref Range: 45-73 %) Imm Gran Pct Auto 0.3 (Ref Range: 0.0-0.4 %) 0.3 (Ref Range: 0.0-0.4 %) 0.3 (Ref Range: 0.0-0.4 %) Lymphocytes Percent Auto 19.1?L (Ref Range: 20-40 %) 19.6?L (Ref Range: 20-40 %) 14.1?L (Ref Range: 20-40 %) Monocytes Percent Auto 9.1 (Ref Range: 2-11 %) 8.2 (Ref Range: 2-11 %) 9.5 (Ref Range: 2-11 %) Eosinophils Percent Auto 1.7 (Ref Range: 0-4 %) 1.9 (Ref Range: 0-4 %) 1.8 (Ref Range: 0-4 %) Basophils Percent Auto 0.5 (Ref Range: 0-2 %) 0.5 (Ref Range: 0-2 %) 0.5 (Ref Range: 0-2 %) NRBC Pct Auto 0.0 (Ref Range: 0.0-0.2 /100WBC) 0.0 (Ref Range: 0.0-0.2 /100WBC) 0.0 (Ref Range: 0.0-0.2 /100WBC) Neutrophils Absolute Auto 6.4 (Ref Range: 2.0-8.3 x10*3/uL) 6.7 (Ref Range: 2.0-8.3 x10*3/uL) 7.8 (Ref Range: 2.0-8.3 x10*3/uL) Imm Gran Abs Auto 0.03 (Ref Range: 0.00-0.03 X10*3/uL) 0.03 (Ref Range: 0.00-0.03 X10*3/uL) 0.03 (Ref Range: 0.00-0.03 X10*3/uL) Lymphocytes Absolute Auto 1.8 (Ref Range: 1.2-4.9 X10*3/uL) 1.9 (Ref Range: 1.2-4.9 X10*3/uL) 1.5 (Ref Range: 1.2-4.9 X10*3/uL) Monocytes Absolute Auto 0.8 (Ref Range: 0.1-1.2 X10*3/uL) 0.8 (Ref Range: 0.1-1.2 X10*3/uL) 1.0 (Ref Range: 0.1-1.2 X10*3/uL) Eosinophils Absolute Auto 0.2 (Ref Range: 0.0-0.4 X10*3/uL) 0.2 (Ref Range: 0.0-0.4 X10*3/uL) 0.2 (Ref Range: 0.0-0.4 X10*3/uL) Basophils Absolute Auto 0.1 (Ref Range: 0.0-0.2 X10*3/uL) 0.1 (Ref Range: 0.0-0.2 X10*3/uL) 0.1 (Ref Range: 0.0-0.2 X10*3/uL) NRBC Abs Auto 0.000 (Ref Range: 0.0-0.012 X10*3/uL) 0.000 (Ref Range: 0.0-0.012 X10*3/uL) 0.000 (Ref Range: 0.0-0.012 X10*3/uL) * Lab:Comprehensive Met. Panel * Order Date 03/29/2023 03/04/2022 06/28/2021 Sodium 141 (Ref Range: 135-145 mmol/L) 139 (Ref Range: 135-145 mmol/L) 136 (Ref Range: 135-145 mmol/L) Bilirubin Total 0.4 (Ref Range: 0.0-1.0 mg/dL) 0.4 (Ref Range: 0.0-1.0 mg/dL) 0.6 (Ref Range: 0.0-1.0 mg/dL) Aspartate Amino Transferase 18 (Ref Range: 5-31 U/L) 16 (Ref Range: 5-31 U/L) 18 (Ref Range: 5-31 U/L) Alanine Aminotransferase 16 (Ref Range: 0-31 U/L) 17 (Ref Range: 0-31 U/L) 20 (Ref Range: 0-31 U/L) Total Protein 7.5 (Ref Range: 6.5-8.0 g/dL) 7.1 (Ref Range: 6.5-8.0 g/dL) 7.2 (Ref Range: 6.5-8.0 g/dL) Albumin Level 4.0 (Ref Range: 3.5-5.0 g/dL) 4.0 (Ref Range: 3.5-5.0 g/dL) 4.0 (Ref Range: 3.5-5.0 g/dL) Alkaline Phosphatase 77 (Ref Range: 39-117 U/L) 72 (Ref Range: 39-117 U/L) 72 (Ref Range: 39-117 U/L) Potassium 4.3 (Ref Range: 3.3-5.1 mmol/L) 4.6 (Ref Range: 3.3-5.1 mmol/L) 4.9 (Ref Range: 3.3-5.1 mmol/L) Chloride 105 (Ref Range: 96-108 mmol/L) 102 (Ref Range: 96-108 mmol/L) 101 (Ref Range: 96-108 mmol/L) Carbon Dioxide 26 (Ref Range: 22-29 mmol/L) 25 (Ref Range: 22-29 mmol/L) 29 (Ref Range: 22-29 mmol/L) Anion Gap 14 (Ref Range: 12-20) 17 (Ref Range: 12-20) 11?L (Ref Range: 12-20) Blood Urea Nitrogen 21?H (Ref Range: 9-16 mg/dL) 20?H (Ref Range: 9-16 mg/dL) 26?H (Ref Range: 9-16 mg/dL) Creatinine 1.03 (Ref Range: 0.5-1.4 mg/dL) 0.91 (Ref Range: 0.5-1.4 mg/dL) 0.98 (Ref Range: 0.5-1.4 mg/dL) Estimated Glomerular Filt Rate 53 > 60 57 Glucose Random 83 (Ref Range: 60-115 mg/dL) 97 (Ref Range: 60-115 mg/dL) 104 (Ref Range: 60-115 mg/dL) Calcium 9.1 (Ref Range: 8.4-10.2 mg/dL) 9.1 (Ref Range: 8.4-10.2 mg/dL) 9.4 (Ref Range: 8.4-10.2 mg/dL) * Lab:Therapeutic Phlebotomy * Order Date 03/29/2023 01/25/2023 11/21/2022 THER/HCT TNP (Ref Range: 37.0-47.0 %) TNP (Ref Range: 37.0-47.0 %) TNP (Ref Range: 37.0-47.0 %) THER/HGB TNP (Ref Range: 12.0-16.0 g/dL) TNP (Ref Range: 12.0-16.0 g/dL) TNP (Ref Range: 12.0-16.0 g/dL) Therapeutic Phlebotomy Phlebotomy Perfor med Phlebotomy Performed Phlebotomy Performed ???Lab:Pathology (Order Date - 02/21/2023) (Collection Date - 02/21/2023) * Examination: ???General Examination: ?GENERAL APPEARANCE:?pleasant, well nourished, well developed, in no acute distress, calm and relaxed , morbidly obese , woman.?HEAD:?atraumatic, normocephalic.?EYES:?eomi, perrla, anicteric, conjugate.?EARS:?normal.?NOSE:?septum intact.?ORAL CAVITY:?normal, unremarkable.?NECK/THYROID:?no jugular venous distention, no carotid bruit, thyroid normal.?LYMPH NODES:?no enlarged lymph nodes,spleen normal.?SKIN:?no suspicious lesions, anicteric.?HEART:?no clicks, gallops, murmurs, or rubs, regular rhythm, S1, S2 normal, no s3, or vascular bruits.?LUNGS:?clear to auscultation .?BREASTS:??no masses palpable bilaterally, Scars healed.?ABDOMEN:?bowel sounds normal, no ascites, no organomegaly, no mass , morbid obesity.?RECTAL EXAM:?not examined.?MUSCULOSKELETAL:?extremities unremarkable, no clubbing, cyanosis or edema.?PERIPHERAL PULSES:?normal.?NEUROLOGIC:?alert and oriented, cranial nerves 2-12 grossly intact, deep tendon reflexes 2+ symmetrical, motor strength normal upper and lower extremities, sensory exam intact.?PSYCH:?alert, oriented.? Assessment: * Assessment: 1.?Iron deficiency - E61.1 ( Primary), She is no longer anemic and a mean cell volume is macrocytic. She'll be observed carefully. The iron will be continued. Comprehensive blood work with a ferritin has been ordered.?2.?Malignant neoplasm of upper-outer quadrant of left female breast, unspecified estrogen receptor status - C50.412?3.?Morbid obesity - E66.01, She has gained 8 pounds and her body mass index is now 40. We have reviewed diet and nutrition. We have made a plan to lose weight at a rate of one half of a pound per week through a diet restricted in fat calories and sodium combined with regular physical activity.?4.?Celiac disease - K90.0, She has had no change in her gastrointestinal symptoms. Her weight is stable and she seems happy and well. No treatment is necessary today.?5.?Tobacco dependence - F17.200, She continues to smoke and I have made her aware of the health consequences doing so. I have referred her to the smoking cessation program at [facility].?6.?Raynaud's syndrome without gangrene - I73.00, No further episodes of Raynaud's syndrome have occurred since her last visit.?7.?Erythrocytosis - D75.1, She will continue the phlebotomy if needed. At this time her hematocrit and hemoglobin are normal. Currently, the increased red cell mass is well controlled.?8.?Lobular carcinoma of left breast, stage 1 - C50.912, There is no sign of recurrence. The radiation changes are fading. All scars are well-healed. No masses are palpable. She will continue on the anastrozole for 5 years. She is having no side effects from the drug.? Plan: * Treatment: 2.?Malignant neoplasm of upp er-outer quadrant of left female breast, unspecified estrogen receptor status?LAB: PROFILE, RANDOM (COMPREHENSIVE METABOLIC) ?LAB: CBC WITH AUTO DIFF ?LAB: Ferritin * Procedure Codes:? * Preventive Medicine:? ??Counseling:?Care goal follow-up plan:?Counseling for abnormal BMI given?Yes ?Above Normal BMI Follow-up?Dietary management education, guidance, and counseling, Dietary needs education, Exercise promotion: strength training, Exercise promotion: stretching, Feeding regime, Giving encouragement to exercise, Lifestyle education regarding diet, Nutrition / feeding management, Nutrition therapy, Prescribed activity/exercise education, Prescribed diet education, Prescribed dietary intake, Special diet education, Weight monitoring , Intervention, Order not done: Medical or Other reason not done ?Smoking/Tobacco Use?Patient counseled on the dangers of tobacco use and urged to quit.?05/19/2023 ?Patient Lifestyle Goals?Patient wants to quit ?Treatment Goals?Cut down by 1 cigarette a week, Set a quit date ?Barriers?Stress, Social smoker ?Self-Management Plan?Make a plan to cut down number of cigarettes over time and set a date to work towards quitting * Follow Up:?4 Months (Reason: OV) * Images: * Sign off status: Completed true * Provider:?Rajinder Guerrero MD Date:?05/2023 Generated for Jannie stover/Baljit/Annalise on:?03/27/2024 09:57 PM EST History and Physical Notes * [...] been exposed to COVID-19 in the past?: No Examination Category Sub-Category Detail Notes General Examination [...] lesion s, anicteric PERIPHERAL PULSES: normal BREASTS: no masses palpable b ilaterally, Scars healed MUSCULOSKELETAL: extremities unremark able, no clubbing, cyanosis or edema LYMPH NODES: no enlarged lymph no wilfrido,spleen normal RECTAL EXAM: not examined PSYCH: alert, oriented ORAL CAVITY: normal, unremarkable
--- OUTSIDE RECORDS SUMMARY | 2024-03-27 21:57 | XMS_ITS ---
Author Organization Rajinder Guerrero III, MD Address [address] [place] [address] Care Team Providers Care Edge Plugger Name Role Phone Roderick TAPIA, [facility] Primary Care Provider Rajinder Camargo Unavailable [phone] Allergies Allergen (clinical drug ingredient) Drug/Non Drug [...] W/U Status Risk Notes Problem Polycythemia vera (874335545) Polycythemia vera (D45) Active confirmed Her polycythemia [...] Date Provider Diagnosis Rajinder Guerrero III, MD [address] [place] [address] [place] [address] 09/22/2023 Rajinder Guerrero Iron deficiency E61. 1 [...] her to the smoking cessation program at [facility]. 09/22/2023 Polycythemia vera (ICD-10 - D45) [...] Up: 6 Months, Reason: OV Provider Name:Rajinder Edouardrne, 04/18/2024 09:00:00 AM, [address] [place] [address] DR, [place] [address], [place], [address], Progress Notes * CATRACHITOLarisa CLEMENTSDOB:1955 (68 yo F)Acc No.[id number]:09/22/2023 Progress Notes Patient:?Larisa Dee Provider:?Rajinder Guerrero MD :1955???Age:68 Y???Sex:Female D ate:09/22/2023 Address:[address] [place], [place] [id number] Pcp:Deandra Vaughn MD Subjective: * Chief Complaints: * ???Iron deficiencyLeft breas t Lobular carcinomaThe risks serocytosisMorbid obesity * HPI: ???COVID-19 Screening:? She returns for management of her history of erythrocytosis iron deficiency and breast cancer. Since her last visit she has been well. She has no new complaints. She has been conducting breast self-examination with negative results. Her blood work was reviewed with her in detail today. ?Questions?Have you experienced fever, chills, cough, sore throat, shortness of breath, difficulty breathing, muscle aches, loss of taste or smell??No ?Have you been exposed to the virus within the last 10 days??No ?Have you travelled internationally in the last 10 days??No ?Have you been exposed to COVID-19 in the past??Yes * ROS:?General/Constitutional:?pain?only normal aches and pains.?Chills?denies.?Fatigue?admits.?Fever?denies.?ENT:?Decreased hearing?denies.?Respiratory:?Cough?denies.?Cardiovascular:?Chest pain with exertion?denies.?Dyspnea on exertion?denies.?Shortness of breath?denies.?Gastrointestinal:?Constipation?occasional.?Decreased appetite?denies.?Diarrhea?denies.?Heartburn?denies.?Nausea?denies.?Rectal bleeding?denies.?Vomiting?denies.?Hematology:?bruising?denies.?petechiae?denies.?Swollen glands?none have been noted.?Genitourinary:?Frequent urination?a small amount.?Musculoskeletal:?Muscle aches?denies.?Painful joints?denies.?Sciatica?denies.?Weakness?denies.?Skin:?Itching?denies.?Rash?denies.?Skin lesion(s)?denies.?Neurologic:?Difficulty speaking?denies.?Dizziness?denies.?Headache?denies.?Low back pain?denies.?Psychiatric:?Depressed mood?denies.? [...] Tobacco Non-User?Ex-cigarette smoker ???She was born in [place] and is . She has 2 sons and works at [employer] in [place]. * Medications:?TakingLORazepam 1 MG Tablet 1 tablet [...] All ergyno[Allergies Verified] Objective: * Vitals:?Ht: 65, Wt:245, BMI: 40.77, BP:130/72, HR:80, Temp:98.2, Wt-k.13. * ???Past Orders: Lab:Therapeutic Phlebotomy * Order Date 08/08/2023 [...] (Ref Range: 4.8-10.8 X10*3/uL) Red Blood Count 4.09?L (Ref Range: 4.20-5.50 X10*6/uL) 4.32 (Ref Range: 4.20-5.50 X10*6/uL) 4.14?L (Ref Range: 4.20-5.50 X10*6/uL) Hemoglobin 13.4 (Ref Range: 12.0-16.0 g/dl) 14.1 (Ref Range: 12.0-16.0 g/dl) 13.6 (Ref Range: 12.0-16.0 g/dl) Hematocrit 41.5 (Ref Range: 37.0-47.0 %) 42.4 (Ref Range: 37.0-47.0 %) 40.3 (Ref Range: 37.0-47.0 %) Mean Corpuscular Volume 101.5?H (Ref Range: 80.0-98.0 fL) 98.1?H (Ref Range: 80.0-98.0 fL) 97.3 (Ref Range: [...] (Ref Range: 0.0-0.4 %) Lymphocytes Percent Auto 17.5?L (Ref Range: 20-40 %) 17.0?L (Ref Range: 20-40 %) 24.7 (Ref Range: [...] mmol/L) 4.6 (Ref Range: 3.3-5.1 mmol/L) Chloride 109?H (Ref Range: 96-108 mmol/L) 105 (Ref Range: 96-108 mmol/L) 102 (Ref Range: 96-108 mmol/L) Carbon Dioxide 25 (Ref Range: 22-29 mmol/L) 26 (Ref Range: 22-29 mmol/L) 25 (Ref Range: 22-29 mmol/L) Anion Gap 15 (Ref Range: 12-20) 14 (Ref Range: 12-20) 17 (Ref Range: 12-20) Blood Urea Nitrogen 17?H (Ref Range: 9-16 mg/dL) 21?H (Ref Range: 9-16 mg/dL) 20?H (Ref Range: 9-16 mg/dL) Creatinine 0.87 (Ref [...] - 09/20/2023) (Collection Date - 09/20/2023)? ValueReference Range?Tawobivt2179-528 - ng/mL * Examination: ???General Examination: ?GENERAL APPEARANCE:?pleasant, well nourished, well developed, in no acute distress, calm and relaxed , morbidly obese , woman.?HEAD:?atraumatic, normocephalic.?EYES:?eomi, perrla, anicteric, conjugate.?EARS:?normal.?NOSE:?septum intact.?ORAL CAVITY:?normal, unremarkable.?NECK/THYROID:?no jugular venous distention, no carotid bruit, thyroid normal.?LYMPH NODES:?no enlarged lymph nodes,spleen normal.?SKIN:?no suspicious lesions, anicteric.?HEART:?no clicks, gallops, murmurs, or rubs, regular rhythm, S1, S2 normal, no s3, or vascular bruits.?LUNGS:?clear to auscultation .?BREASTS:?not examined.?ABDOMEN:?bowel sounds normal, no ascites, no organomegaly, no [...] blood work with a ferritin has been ordered.?2.?Obesity - E66.9, Her body mass index is 40. We discussed her diet and nutrition. We made a plan to lose weight at a rate of one half of a pound per week.?3. Tobacco dependence - F17.200, She continues to smoke and I have made her aware of the health consequences doing so. I have referred her to the smoking cessation program at [facility]. 4.?Polycythemia vera - D45, Her polycythemia is stable and her hematocrit is in the normal range. She will have the CBC done every 2 months instead of one now that she is stable. She will avoid taking iron-containing medications.? Plan: * Treatment: 2.?Obesity?LAB: PROFILE, RANDOM (COMPREHENSIVE METABOLIC) ?LAB: CBC WITH [...] dangers of tobacco use and urged to quit.?09/22/2023 ?Patient Lifestyle Goals?Patient wants to quit ?Treatment Goals?Cut down by 1 cigarette a week, Set a quit date ?Barriers?Stress ?Self-Management Plan?Make a plan to cut down number of cigarettes over time and set a date to work towards quitting * Follow Up:?6 Months (Reason: OV) * Images: * Sign off status: Completed true * Provider:?Rajinder Guerrero MD Date:?10/2023 Generated for Jannie stover/Baljit/eTcinthiasmitting on:?03/27/2024 09:57 PM EST History and Physical Notes * HPI (History of Present Illness) Category Sub-Category Detail Notes COVID-19 Screening Questions Have you had any new onset fever, chills, cough, congestion, sore throat, shortness of breath, muscle aches?: No Have you been exposed to the virus withi n the last 10 days?: No Have you travelled internationally in last 10 days?: No Have you been [...]
--- OUTSIDE RECORDS SUMMARY | 2024-03-27 21:58 | XMS_ITS ---
Author Organization [facility] Address [address] [place] [address] Care Team Providers Care Repair Cameraman Name Role Phone Deandra Vaughn Primary Care Provider Unavailab Tevin Bardales Jr REASON FOR VISIT Is prior authorization needed? Encounters Encounter Location Date Provider Diagnosis [facility] [address] [place] [address] 01/26/2023 Tevin Hayes Jr PLAN OF TREATMENT No Information
--- OUTSIDE RECORDS SUMMARY | 2024-03-27 21:58 | XMS_ITS ---
Author Organization [facility] Address [address] [place] [address] Care Team Providers Care Branch Maker Name Role Phone FedeDeandra mccarthy Primary Care Provider Unavailab Tevin Bardales Jr Unavailable [phone] REASON FOR VISIT gerd,bloating,screening PROBLEMS Problem Type ICD Code Onset Dates Problem Status W/U Status Risk SNOMED Code Notes Problem GERD (gastroesop hageal reflux disease) (K21.9) Active confirmed Gastroesophagea l reflux disease (010626183) Encounters Encounter Location Date Provider Diagnosis [facility] [place] [address] [place] [phone] 02/21/2023 Tevin Hayes Jr Encounter for screening colonoscopy Z12.11 ; Colon polyps K63.5 ; GERD (gastroesophageal reflux disease) K21.9 and Bloating R14.0 ASSESSMENTS Encounter Date Diagnosis Assessment Notes Treatment Notes Treatment Clinical Notes 02/21/2023 Encounter for screening colonoscopy (ICD-10 - Z12.11) 02/21/2023 Colon polyps (ICD-10 - K63.5) 02/21/2023 GERD (gastroesophageal reflux disease) (ICD-10 - K21.9) 02/21/2023 Bloating (ICD-10 - R14.0) PLAN OF TREATMENT No Information
--- OUTSIDE RECORDS SUMMARY | 2024-03-27 21:58 | XMS_ITS | Patient Health Record ---
Author Organization [facility] Address [address] [place] [address] Care Team Providers Care Airplane Mechanic Name Role Phone Deandra Vaughn Primary Care Provider UnavailTevin Gao Jr Unavailable [phone] ALLERGIES Allergen (clinical drug ingredient) Drug/Non Drug Allergy documented on EMR Reaction Allergy Type Onset Date Status Gluten Gluten Unknown Allergy Active Eggs or Egg-derived Products Unknown Drug Allergy Active REASON FOR REFERRAL No Information MEDICATIONS Medication SIG (Take, Route, Frequency, Duration) Notes Start Date End Date Status MiraLax (colon prep) 17 GM/SCOOP mixed with Gatorade or Crystal Light Orally begin at 5:00 p.m. the day before the procedure for 1 day 01/04/2023 Active Losartan Potassium-HCTZ 100-25 MG Oral for 90 Active Metoprolol Tartrate 50 MG TAKE 1 TABLET BY MOUTH TWICE A DAY Oral for 90 Active LORazepam 1 MG Oral for 28 Act chyna Pravastatin Sodium 80 MG Oral for 90 Active IMMUNIZATIONS Vaccine Route Administration Date Status Comme nts Influenza Unknown 01/04/2022 Administered SOCIAL HISTORY Tobacco Use: Social History Observation Description Date Details (start date - stop date) Current Smoker NA - NA Sex Assigned At : Social History Observation Description Sex Assigned At Unknown Tobacco Use/Smoking Question Answer Notes Patient is a current smoker Alcohol Screen Question Answer Notes Did you have a drink contain ing alcohol in the past year? Yes How often did you have a dri nk containing alcohol in the past year? 2 to 4 times a month (2 points) How many drinks did you have on a typical day when you were drinking in the past year? 1 or 2 drinks (0 point) How often did you have 6 or more drinks on one occasion in the past year? Never (0 point) Points 2 Interpretation Negative PROBLEMS Problem Type ICD Code Onset Dates Problem Status W/U Status Risk SNOMED Code Notes Problem Gastroesophageal reflux disease, unspecified whether esophagitis present (K21.9) Active confirmed 611077752 Problem Bloating (R14.0) Active confirmed [id number] [id number] Problem Colon cancer screening (Z12.11) Active confirmed [id number] Problem GERD (gastroesophageal reflux disease) (K21.9) Active confirmed Gastroesophagea l reflux disease (831539086) PLAN OF TREATMENT Future Test Test Name Order Date UPPER GI ENDOSCOPY 01/04/2023 COLONOSCOPY 01/04/2023 Insurance Providers Payer Name Payer Address Payer Phone Subscriber Number Group Number Insured Name Patient Relationship to Insured Coverage Start Date Coverage End Date [employer] (No Referra l) [address] [address] [place] [address] [id number] PIYUSH DEE Self - patient is the insured MEDICAL (GENERAL) HISTORY Medical History History ICD Code Hypertension Hyperlipidemia Left breast cancer, XRT and hormonal the rapy Polycythemia Anxiety Recent seizures, MRI of the brain pendabby bullock Colonoscopy 07/25/08, hyperplastic polyps x2, ten-year followup Surgical History Surgery Date(Month/Year) Left breast cancer, lumpectomy/axillary node dissection 08/02 Cholecystectomy 10/07
--- OUTSIDE RECORDS SUMMARY | 2024-03-27 21:58 | XMS_ITS ---
Author Organization [facility] Address [address] [place] [address] Care Team Providers Care Critical Care Transport Nurse Name Role Phone Deandra Vaughn Primary Care Provider Unavailab Tevin Bardales Jr [phone] REASON FOR VISIT pathology Encounters Encounter Location Date Provider Diagnosis [facility] [address] [place] [address] 02/24/2023 Tevin Hayes Jr PLAN OF TREATMENT No Information
--- OUTSIDE RECORDS SUMMARY | 2024-03-27 21:58 | XMS_ITS | Patient Health Record ---
Author Organization Rajinder Guerrero III, MD Address [address] [place] [address] Care Team Providers Care School Examiner Name Role Phone Roderick TAPIA, [facility] Primary Care Provider Rajinder Camargo Unavailable [phone] Allergies Allergen (clinical drug ingredient) Drug/Non Drug Allergy documented on EMR Reaction Allergy Type Onset Date Status No Known Drug Allergy Unknown Drug Allergy Active Results Component Value Reference Range Notes Complete Blood Count Auto Di ff Reviewed date:05/07/2023 09:19:56 AM Interpretation: Performing Lab:[facility], [address] [place] [phone] Notes/Report: White Blood Count 9.3 4.8-10.8 X10*3/uL Red Blood Count 4.40 4.20-5.50 X10*6/uL Hemoglobin 14.2 12.0-16.0 g/dl Hematocrit 44.1 37.0-47.0 % Mean Corpuscular Volume 100.2 80.0-98.0 fL Mean Corpuscular Hemoglobin 32.3 27.0-33.0 pg Mean Corpuscular HGB Conc 32.2 31.0-35.0 g/dl Red Cell Distribution Width 14.2 11.0-16.0 % Platelet Count 345 160-400 X10*3/uL Mean Platelet Volume 9.6 9.4-12.3 fL Neutrophils Percent Auto 69.3 45-73 % Imm Gran Pct Auto 0.3 0.0-0.4 % Lymphocytes Percent Auto 19.1 20-40 % Monocytes Percent Auto 9.1 2-11 % Eosinophils Percent Auto 1.7 0-4 % Basophils Percent Auto 0.5 0-2 % NRBC Pct Auto 0.0 0.0-0.2 /100WBC Neutrophils Absolute Auto 6.4 2.0-8.3 x10*3/u L Imm Gran Abs Auto 0.03 0.00-0.03 X10*3/uL Lymphocytes Absolute Auto 1.8 1.2-4.9 X10*3/u L Monocytes Absolute Auto 0.8 0.1-1.2 X10*3/uL Eosinophils Absolute Auto 0.2 0.0-0.4 X10*3/u L Basophils Absolute Auto 0.1 0.0-0.2 X10*3/uL NRBC Abs Auto 0.000 0.0-0.012 X10*3/uL Comprehensive Met. Panel Reviewed date:05/07/2023 09:19:56 AM Interpretation: Performing Lab:[address] [phone] Notes/Report: Sodium 141 135-145 mmol/L Potassium 4.3 3.3-5.1 mmol/L Chloride 105 96-108 mmol/L Carbon Dioxide 26 22-29 mmol/L Anion Gap 14 12-20 Blood Urea Nitrogen 21 9-16 mg/dL Creatinine 1.03 0.5-1.4 mg/dL Estimated Glomerular Filt Rate 53 NOTE: For -Kosovan individuals, multiply the result by 1.210. Chronic Kidney Disease: Estimated GFR < 60 mL/min/1.73m2 Severe Kidney Disease: Estimated GFR < 15 mL/min/1.73m2 Glucose Random 83 60-115 mg/dL Calcium 9.1 8.4-10.2 mg/dL Bilirubin Total 0.4 0.0-1.0 mg/dL Aspartate Amino Transferase 18 5-31 U/L Alanine Aminotransferase 16 0-31 U/L Total Protein 7.5 6.5-8.0 g/dL Albumin Level 4.0 3.5-5.0 g/dL Alkaline Phosphatase 77 39-117 U/L Therapeutic Phlebotomy Reviewed date:05/07/2023 09:19:56 AM Interpretation: Performing Lab:[address] [phone] Notes/Report: THER/HGB TNP 12.0-16.0 g/dL Lab Results on file. Performed at [facility] on 03/29/23: Hgb: 14.2 g/dl Hct: 44.1 % THER/HCT TNP 37.0-47.0 % Therapeutic Phlebotomy Phlebotomy Performed 500 mls drawn on 03/29/23. Please note that a copy of this report has been sent to the Primary Care Physician, the ordering physician and any physician designated by patient request. Complete Blood Count Auto Di ff Reviewed date:06/10/2023 09:01:15 AM Interpretation: Performing Lab:[facility], [address] [place] [phone] Notes/Report: White Blood Count 6.7 4.8-10.8 X10*3/uL Red Blood Count 4.14 4.20-5.50 X10*6/uL Hemoglobin 13.6 12.0-16.0 g/dl Hematocrit 40.3 37.0-47.0 % Mean Corpuscular Volume 97.3 80.0-98.0 fL Mean Corpuscular Hemoglobin 32.9 27.0-33.0 pg Mean Corpuscular HGB Conc 33.7 31.0-35.0 g/dl Red Cell Distribution Width 14.1 11.0-16.0 % Platelet Count 338 160-400 X10*3/uL Mean Platelet Volume 9.8 9.4-12.3 fL Neutrophils Percent Auto 62.2 45-73 % Imm Gran Pct Auto 0.1 0.0-0.4 % Lymphocytes Percent Auto 24.7 20-40 % Monocytes Percent Auto 10.4 2-11 % Eosinophils Percent Auto 1.9 0-4 % Basophils Percent Auto 0.7 0-2 % NRBC Pct Auto 0.0 0.0-0.2 /100WBC Neutrophils Absolute Auto 4.2 2.0-8.3 x10*3/u L Imm Gran Abs Auto 0.01 0.00-0.03 X10*3/uL Lymphocytes Absolute Auto 1.7 1.2-4.9 X10*3/u L Monocytes Absolute Auto 0.7 0.1-1.2 X10*3/uL Eosinophils Absolute Auto 0.1 0.0-0.4 X10*3/u L Basophils Absolute Auto 0.1 0.0-0.2 X10*3/uL NRBC Abs Auto 0.000 0.0-0.012 X10*3/uL Therapeutic Phlebotomy Reviewed date:06/10/2023 09:01:15 AM Interpretation: Performing Lab:[facility], [address] [place] [phone] Notes/Report: THER/HGB TNP 12.0-16.0 g/dL Lab Results on file. Performed at [facility] on 06/09/23: Hgb: 13.6 g/dl Hct: 40.3 % THER/HCT TNP 37.0-47.0 % Therapeutic Phlebotomy TNP Reason: Pre-phlebotomy Hgb/Hct is below the established parameter for this patient. Please note that a copy of this report has been sent to the Primary Care Physician, the ordering physician and any physician designated by patient request. Complete Blood Count Auto Di ff Reviewed date:09/22/2023 02:59:21 PM Interpretation: Performing Lab:[facility], [address] [place] [phone] Notes/Report: White Blood Count 8.0 4.8-10.8 X10*3/uL Red Blood Count 4.32 4.20-5.50 X10*6/uL Hemoglobin 14.1 12.0-16.0 g/dl Hematocrit 42.4 37.0-47.0 % Mean Corpuscular Volume 98.1 80.0-98.0 fL Mean Corpuscular Hemoglobin 32.6 27.0-33.0 pg Mean Corpuscular HGB Conc 33.3 31.0-35.0 g/dl Red Cell Distribution Width 13.4 11.0-16.0 % Platelet Count 354 160-400 X10*3/uL Mean Platelet Volume 9.6 9.4-12.3 fL Neutrophils Percent Auto 71.7 45-73 % Imm Gran Pct Auto 0.4 0.0-0.4 % Lymphocytes Percent Auto 17.0 20-40 % Monocytes Percent Auto 9.0 2-11 % Eosinophils Percent Auto 1.4 0-4 % Basophils Percent Auto 0.5 0-2 % NRBC Pct Auto 0.0 0.0-0.2 /100WBC Neutrophils Absolute Auto 5.7 2.0-8.3 x10*3/u L Imm Gran Abs Auto 0.03 0.00-0.03 X10*3/uL Lymphocytes Absolute Auto 1.4 1.2-4.9 X10*3/u L Monocytes Absolute Auto 0.7 0.1-1.2 X10*3/uL Eosinophils Absolute Auto 0.1 0.0-0.4 X10*3/u L Basophils Absolute Auto 0.0 0.0-0.2 X10*3/uL NRBC Abs Auto 0.000 0.0-0.012 X10*3/uL Therapeutic Phlebotomy Reviewed date:09/22/2023 02:59:21 PM Interpretation: Performing Lab:[facility], [address] [place] [phone] Notes/Report: THER/HGB TNP 12.0-16.0 g/dL Lab Results on file. Performed at [facility] on 08/08/23: Hgb: 14.1 g/dl Hct: 42.4 % THER/HCT TNP 37.0-47.0 % Therapeutic Phlebotomy Phlebotomy Performed 500 mls drawn on 08/08/23. Please note that a copy of this report has been sent to the Primary Care Physician, the ordering physician and any physician designated by patient request. Complete Blood Count Auto Di ff Reviewed date:09/22/2023 02:59:21 PM Interpretation: Performing Lab:[facility], [address] [place] [phone] Notes/Report: White Blood Count 7.2 4.8-10.8 X10*3/uL Red Blood Count 4.09 4.20-5.50 X10*6/uL Hemoglobin 13.4 12.0-16.0 g/dl Hematocrit 41.5 37.0-47.0 % Mean Corpuscular Volume 101.5 80.0-98.0 fL Mean Corpuscular Hemoglobin 32.8 27.0-33.0 pg Mean Corpuscular HGB Conc 32.3 31.0-35.0 g/dl Red Cell Distribution Width 13.9 11.0-16.0 % Platelet Count 325 160-400 X10*3/uL Mean Platelet Volume 10.7 9.4-12.3 fL Neutrophils Percent Auto 71.9 45-73 % Imm Gran Pct Auto 0.3 0.0-0.4 % Lymphocytes Percent Auto 17.5 20-40 % Monocytes Percent Auto 8.0 2-11 % Eosinophils Percent Auto 1.9 0-4 % Basophils Percent Auto 0.4 0-2 % NRBC Pct Auto 0.0 0.0-0.2 /100WBC Neutrophils Absolute Auto 5.2 2.0-8.3 x10*3/u L Imm Gran Abs Auto 0.02 0.00-0.03 X10*3/uL Lymphocytes Absolute Auto 1.3 1.2-4.9 X10*3/u L Monocytes Absolute Auto 0.6 0.1-1.2 X10*3/uL Eosinophils Absolute Auto 0.1 0.0-0.4 X10*3/u L Basophils Absolute Auto 0.0 0.0-0.2 X10*3/uL NRBC Abs Auto 0.000 0.0-0.012 X10*3/uL Comprehensive Met. Panel Reviewed date:09/22/2023 02:59:21 PM Interpretation: Performing Lab:[facility], [address] [place] [phone] Notes/Report: Sodium 144 135-145 mmol/L Potassium 4.6 3.3-5.1 mmol/L Chloride 109 96-108 mmol/L Carbon Dioxide 25 22-29 mmol/L Anion Gap 15 12-20 Blood Urea Nitrogen 17 9-16 mg/dL Creatinine 0.87 0.5-1.4 mg/dL Estimated Glomerular Filt Rate > 60 NOTE: For -Kosovan individuals, multiply the result by 1.210. Chronic Kidney Disease: Estimated GFR < 60 mL/min/1.73m2 Severe Kidney Disease: Estimated GFR < 15 mL/min/1.73m2 Glucose Random 98 60-115 mg/dL Calcium 9.4 8.4-10.2 mg/dL Bilirubin Total 0.5 0.0-1.0 mg/dL Aspartate Amino Transferase 19 5-31 U/L Alanine Aminotransferase 20 0-31 U/L Total Protein 7.2 6.5-8.0 g/dL Albumin Level 3.9 3.5-5.0 g/dL Alkaline Phosphatase 77 39-117 U/L Ferritin Reviewed date:09/22/2023 02:59:21 PM Interpretation: Performing Lab:[facility], [address] [place] [phone] Notes/Report: Ferritin 20 10-250 ng/mL Complete Blood Count Auto Di ff Reviewed date:10/16/2023 04:39:47 PM Interpretation: Performing Lab:[facility], [address] [place] [phone] Notes/Report: White Blood Count 7.3 4.8-10.8 X10*3/uL Red Blood Count 4.14 4.20-5.50 X10*6/uL Hemoglobin 13.6 12.0-16.0 g/dl Hematocrit 41.0 37.0-47.0 % Mean Corpuscular Volume 99.0 80.0-98.0 fL Mean Corpuscular Hemoglobin 32.9 27.0-33.0 pg Mean Corpuscular HGB Conc 33.2 31.0-35.0 g/dl Red Cell Distribution Width 13.6 11.0-16.0 % Platelet Count 341 160-400 X10*3/uL Mean Platelet Volume 9.7 9.4-12.3 fL Neutrophils Percent Auto 66.9 45-73 % Imm Gran Pct Auto 0.3 0.0-0.4 % Lymphocytes Percent Auto 21.2 20-40 % Monocytes Percent Auto 9.4 2-11 % Eosinophils Percent Auto 1.5 0-4 % Basophils Percent Auto 0.7 0-2 % NRBC Pct Auto 0.0 0.0-0.2 /100WBC Neutrophils Absolute Auto 4.9 2.0-8.3 x10*3/u L Imm Gran Abs Auto 0.02 0.00-0.03 X10*3/uL Lymphocytes Absolute Auto 1.5 1.2-4.9 X10*3/u L Monocytes Absolute Auto 0.7 0.1-1.2 X10*3/uL Eosinophils Absolute Auto 0.1 0.0-0.4 X10*3/u L Basophils Absolute Auto 0.1 0.0-0.2 X10*3/uL NRBC Abs Auto 0.000 0.0-0.012 X10*3/uL Therapeutic Phlebotomy Reviewed date:10/16/2023 04:39:47 PM Interpretation: Performing Lab:[facility], [address] [place] [phone] Notes/Report: THER/HGB TNP 12.0-16.0 g/dL Lab Results on file. Performed at [facility] on 10/09/23: Hgb: 13.6 g/dl Hct: 41.0 % THER/HCT TNP 37.0-47.0 % Therapeutic Phlebotomy TNP Reason: Pre-phlebotomy Hgb/Hct is below the established parameter for this patient. Please note that a copy of this report has been sent to the Primary Care Physician, the ordering physician and any physician designated by patient request. Complete Blood Count Auto Di ff Reviewed date:12/08/2023 03:45:09 PM Interpretation: Performing Lab:[facility], [address] [place] [phone] Notes/Report: White Blood Count 9.6 4.8-10.8 X10*3/uL Red Blood Count 4.09 4.20-5.50 X10*6/uL Hemoglobin 13.5 12.0-16.0 g/dl Hematocrit 40.6 37.0-47.0 % Mean Corpuscular Volume 99.3 80.0-98.0 fL Mean Corpuscular Hemoglobin 33.0 27.0-33.0 pg Mean Corpuscular HGB Conc 33.3 31.0-35.0 g/dl Red Cell Distribution Width 14.6 11.0-16.0 % Platelet Count 327 160-400 X10*3/uL Mean Platelet Volume 9.6 9.4-12.3 fL Neutrophils Percent Auto 70.9 45-73 % Imm Gran Pct Auto 0.2 0.0-0.4 % Lymphocytes Percent Auto 18.5 20-40 % Monocytes Percent Auto 7.8 2-11 % Eosinophils Percent Auto 2.1 0-4 % Basophils Percent Auto 0.5 0-2 % NRBC Pct Auto 0.0 0.0-0.2 /100WBC Neutrophils Absolute Auto 6.8 2.0-8.3 x10*3/u L Imm Gran Abs Auto 0.02 0.00-0.03 X10*3/uL Lymphocytes Absolute Auto 1.8 1.2-4.9 X10*3/u L Monocytes Absolute Auto 0.8 0.1-1.2 X10*3/uL Eosinophils Absolute Auto 0.2 0.0-0.4 X10*3/u L Basophils Absolute Auto 0.1 0.0-0.2 X10*3/uL NRBC Abs Auto 0.000 0.0-0.012 X10*3/uL Therapeutic Phlebotomy Reviewed date:12/08/2023 03:45:09 PM Interpretation: Performing Lab:[facility], [address] [place] [phone] Notes/Report: THER/HGB TNP 12.0-16.0 g/dL Lab Results on file. Performed at [facility] on 12/06/23: Hgb: 13.5 g/dl Hct: 40.6 % THER/HCT TNP 37.0-47.0 % Therapeutic Phlebotomy TNP Reason: Pre-phlebotomy Hgb/Hct is below the established parameter for this patient. Please note that a copy of this report has been sent to the Primary Care Physician, the ordering physician and any physician designated by patient request. Complete Blood Count Auto Di ff Reviewed date:01/29/2024 07:10:24 AM Interpretation: Performing Lab:[facility], [address] [place] [phone] Notes/Report: White Blood Count 9.9 4.8-10.8 X10*3/uL Red Blood Count 4.30 4.20-5.50 X10*6/uL Hemoglobin 14.3 12.0-16.0 g/dl Hematocrit 43.6 37.0-47.0 % Mean Corpuscular Volume 101.4 80.0-98.0 fL Mean Corpuscular Hemoglobin 33.3 27.0-33.0 pg Mean Corpuscular HGB Conc 32.8 31.0-35.0 g/dl Red Cell Distribution Width 14.8 11.0-16.0 % Platelet Count 312 160-400 X10*3/uL Mean Platelet Volume 9.9 9.4-12.3 fL Neutrophils Percent Auto 74.0 45-73 % Imm Gran Pct Auto 0.3 0.0-0.4 % Lymphocytes Percent Auto 15.6 20-40 % Monocytes Percent Auto 7.7 2-11 % Eosinophils Percent Auto 2.0 0-4 % Basophils Percent Auto 0.4 0-2 % NRBC Pct Auto 0.0 0.0-0.2 /100WBC Neutrophils Absolute Auto 7.4 2.0-8.3 x10*3/u L Imm Gran Abs Auto 0.03 0.00-0.03 X10*3/uL Lymphocytes Absolute Auto 1.6 1.2-4.9 X10*3/u L Monocytes Absolute Auto 0.8 0.1-1.2 X10*3/uL Eosinophils Absolute Auto 0.2 0.0-0.4 X10*3/u L Basophils Absolute Auto 0.0 0.0-0.2 X10*3/uL NRBC Abs Auto 0.000 0.0-0.012 X10*3/uL Therapeutic Phlebotomy Reviewed date:01/29/2024 07:10:24 AM Interpretation: Performing Lab:[facility], [address] [place] [phone] Notes/Report: THER/HGB TNP 12.0-16.0 g/dL Lab Results on file. Performed at [facility] on 01/24/24: Hgb: 14.3 g/dl Hct: 43.6 % THER/HCT TNP 37.0-47.0 % Therapeutic Phlebotomy Phlebotomy Performed 500 mls drawn on 01/24/24. Please note that a copy of this report has been sent to the Primary Care Physician, the ordering physician and any physician designated by patient request. Complete Blood Count Auto Di ff (Not yet reviewed by provider) Interpretation: Performing Lab:[facility], [address] [place] [phone] Notes/Report: White Blood Count 11.0 4.8-10.8 X10*3/uL Red Blood Count 4.17 4.20-5.50 X10*6/uL Hemoglobin 13.5 12.0-16.0 g/dl Hematocrit 41.7 37.0-47.0 % Mean Corpuscular Volume 100.0 80.0-98.0 fL Mean Corpuscular Hemoglobin 32.4 27.0-33.0 pg Mean Corpuscular HGB Conc 32.4 31.0-35.0 g/dl Red Cell Distribution Width 14.3 11.0-16.0 % Platelet Count 340 160-400 X10*3/uL Mean Platelet Volume 9.7 9.4-12.3 fL Neutrophils Percent Auto 71.1 45-73 % Imm Gran Pct Auto 0.3 0.0-0.4 % Lymphocytes Percent Auto 17.3 20-40 % Monocytes Percent Auto 9.3 2-11 % Eosinophils Percent Auto 1.5 0-4 % Basophils Percent Auto 0.5 0-2 % NRBC Pct Auto 0.0 0.0-0.2 /100WBC Neutrophils Absolute Auto 7.9 2.0-8.3 x10*3/u L Imm Gran Abs Auto 0.03 0.00-0.03 X10*3/uL Lymphocytes Absolute Auto 1.9 1.2-4.9 X10*3/u L Monocytes Absolute Auto 1.0 0.1-1.2 X10*3/uL Eosinophils Absolute Auto 0.2 0.0-0.4 X10*3/u L Basophils Absolute Auto 0.1 0.0-0.2 X10*3/uL NRBC Abs Auto 0.000 0.0-0.012 X10*3/uL Therapeutic Phlebotomy (Not yet reviewed by provider) Interpretation: Performing Lab:[facility], [address] [place] [phone] Notes/Report: THER/HGB TNP 12.0-16.0 g/dL Lab Results on file. Performed at [facility] on 03/26/24: Hgb: 13.5 g/dl Hct: 41.7 % THER/HCT TNP 37.0-47.0 % Therapeutic Phlebotomy Phlebotomy Performed 500 mls drawn on 03/26/24. Please note that a copy of this report has been sent to the Primary Care Physician, the ordering physician and any physician designated by patient request. Reason For Referral No Information Medications Medication SIG (Take, Route, Frequency, Duration) Notes Start Date End Date Status Pravastatin Sodium 40 MG 1 tablet Orally Once a day Active LORazepam 1 MG 1 tablet Orally once a day Active Diclofenac Sodium 75 MG [...] Additional Findings: Tobacco Non-User Ex-cigaret te smoker Alcohol Screen Question Answer Notes Did [...] Never (0 point) Points 2 Interpretation Negative Problems Problem Type SNOMED Code ICD Code Onset Dates Problem Status W/U Status Risk Notes Problem 456669561 Obesity (E66.9) Active confirmed Her body mass index is 40. We discussed her diet and nutrition. We made a plan to lose weight at a rate of one half of a pound per week. Problem Postmenopausal state (09924607) Post-menopausal (Z78.0) Active confirmed She has not had a period in several years. Problem Polycythemia vera (618234454) Polycythemia vera (D45) Active confirmed Her polycythemi a is stable and her hematocrit is in the normal range. She will have the CBC done every 2 months instead of one now that she is stable. She will avoid taking iron-containing medications. Problem 61232357 Iron deficiency (E61.1) Active confirmed She is no longe r anemic and a mean cell volume is macrocytic. She'll be observed carefully. The iron will be continued. Comprehensive blood work with a ferritin has been ordered. Problem 226780918 Raynaud's syndrome without gangrene (I73.00) Active confirmed No further episodes of Raynaud's syndrome have occurred since her last visit. Problem 234980830 Celiac disease (K90.0) Active confirmed She has had no change in her gastrointestinal symptoms. Her weight is stable and she seems happy and well. No treatment is necessary today. Problem 59778551 Tobacco dependence (F17.200) Active confirmed She continues t o smoke and I have made her aware of the health consequences doing so. I have referred her to the smoking cessation program at [facility]. Problem 917522017 Erythrocytosis (D75.1) Active confirmed She will contin ue the phlebotomy if needed. At this time her hematocrit and hemoglobin are normal. Currently, the increased red cell mass is well controlled. Problem 609836686 Morbid obesity (E66.01) Active confirmed She has gained 8 pounds and her body mass index is now 40. We have reviewed diet and nutrition. We have made a plan to lose weight at a rate of one half of a pound per week through a diet restricted in fat calories and sodium combined with regular physical activity. Problem Malignant neoplasm of upper-outer quadrant of female breast (044290411) Malignant neoplasm of upper-outer quadrant of left female breast, unspecified estrogen receptor status (C50.412) Active confirmed She continues with surveillance mammography and breast self examination. There was no sign of metastatic disease or recurrence today. Her anastrozole was continued. Problem 992358823 Lobular carcinoma of left breast, stage 1 (C50.912) Active confirmed There is no sig n of recurrence. The radiation changes are fading. All scars are well-healed. No masses are palpable. She will continue on the anastrozole for 5 years. She is having no side effects from the drug. Vital Signs Heart Rate 80 /min 09/22/2023 Temperature 98.2 degrees Fahrenheit 09/22/2023 Blood pressure diastolic 72 mm Hg 09/22/2023 Height 65 in 09/22/2023 Blood pressure systolic 130 mm Hg 09/22/2023 Weight 245 lbs 09/22/2023 BMI 40.77 kg/m2 09/22/2023 Encounters Encounter Location Date Provider Diagnosis Rajinder Guerrero III, MD [address] [place] [address] DR [place], [place] [phone] 05/19/2023 Rajinder Guerrero Iron deficiency E61. 1 ; Malignant neoplasm of upper-outer quadrant of left female breast, 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 ; Morbid obesity E66.01 ; Celiac disease K90.0 ; Tobacco dependence F17.200 ; Raynaud's syndrome without gangrene I73.00 ; Erythrocytosis D75.1 and Lobular carcinoma of left breast, stage 1 C50.912 Rajinder Guerrero III, MD [address] [place] [address] [place] [phone] 09/22/2023 Rajinder Guerrero Iron deficiency E61. 1 [...] unspecified estrogen receptor status (ICD-10 - C50.412) 09/22/2023 Obesity (ICD-10 - E66.9) Her body mass index is 40. We discussed her diet and nutrition. We made a plan to lose weight at a rate of one half of a pound per week. 09/22/2023 Iron deficiency (ICD-10 - E61.1) She is no longer anemic and a mean cell volume is macrocytic. She'll be observed carefully. The iron will be continued. Comprehensive blood work with a ferritin has been ordered. 05/19/2023 Morbid obesity (ICD-10 - E66.01) She has gained 8 pounds and her body mass index is now 40. We have reviewed diet and nutrition. We have made a plan to lose weight at a rate of one half of a pound per week through a diet restricted in fat calories and sodium combined with regular physical activity. 09/22/2023 Tobacco dependence (ICD-10 - F17.200) She continues to smoke and I have made her aware of the health consequences doing so. I have referred her to the smoking cessation program at [facility]. 05/19/2023 Celiac disease (ICD-10 - K90.0) She has had no change in her gastrointestinal symptoms. Her weight is stable and she seems happy and well. No treatment is necessary today. 09/22/2023 Polycythemia vera (ICD-10 - D45) Her polycythemia is stable and her hematocrit is in the normal range. She will have the CBC done every 2 months instead of one now that she is stable. She will avoid taking iron-containing medications. 05/19/2023 Tobacco dependence (ICD-10 - F17.200) She continues to smoke and I have made her aware of the health consequences doing so. I have referred her to the smoking cessation program at [facility]. 05/19/2023 Raynaud's syndrome without gangrene (ICD-10 [...] effects from the drug. Plan Of Treatment Pending Test Test Name Order Date PROFILE, RANDOM (COMPREHENSIVE METABOLIC ) 05/19/2023 PROFILE, RANDOM (COMPREHENSIVE METABOLIC ) 12/30/2020 PROFILE, RANDOM (COMPREHENSIVE METABOLIC ) 08/27/2019 PROFILE, RANDOM (COMPREHENSIVE METABOLIC ) 03/21/2022 PROFILE, RANDOM (COMPREHENSIVE METABOLIC ) 04/29/2019 PROFILE, RANDOM (COMPREHENSIVE METABOLIC ) 09/22/2023 PROFILE, RANDOM (COMPREHENSIVE METABOLIC ) 06/30/2021 PROFILE, RANDOM (COMPREHENSIVE METABOLIC ) 07/20/2022 PROFILE, RANDOM (COMPREHENSIVE METABOLIC ) 11/13/2019 PROFILE, RANDOM (COMPREHENSIVE METABOLIC ) 10/19/2021 TSH (THYROID STIMULATING HORMONE) 2021 FERRITIN 08/27/2019 FERRITIN 04/29/2019 B12 06/30/2021 CBC w DIFF 10/19/2021 CBC w DIFF 06/30/2021 CBC w DIFF 12/30/2020 CBC w DIFF 03/21/2022 CBC w DIFF 08/27/2019 CBC w DIFF 07/20/2022 CBC w DIFF 11/13/2019 CBC w DIFF 04/29/2019 SED RATE (ESR) 12/30/2020 MAMMOGRAM DIGITAL BILATERAL SCREEN 06/14 CBC WITH AUTO DIFF 05/19/2023 CBC WITH AUTO DIFF 09/22/2023 Complete Blood Count Auto Diff 4 RETIC 06/30/2021 Ferritin 09/22/2023 Ferritin 05/19/2023 Ferritin 06/30/2021 Folate 06/30/2021 Therapeutic Phlebotomy 03/26/2024 Next Appt Details Provider Name:Rajinder Edouardrne, 04/18/2024 09:00:00 AM, [address] [place] [address] , [address], [place], [address], Insurance Providers Payer Name Payer Address Payer Phone Subscriber Number Group Number Insured Name Patient Relationship to Insured Coverage Start Date Coverage End Date [employer] [address] [place] [phone] [id number] Larisa Dee Self - patient is the insured MEDICARE NGS [address] [place] [phone] [id number] Larisa Dee Self - patient is the insured Medical (General) History Medical History History ICD Code history of iron deficiency celiac disease bunion left foot history of herpes zoster erythrocytosis episode of Raynaud's syndrome October invasive lobular carcinoma, l eft breast,ER+RI+Her-,8mm,N0 Surgical History Surgery Date(Month/Year) Cholecystectomy 09/2022 drainage tonsillar abscess 12/2018 left breast lumpectomy,SN, invasive lobu lar carcinoma 06/2017 Hospitalization History Reason Date(Month/Year) tonsilitis 09/2021
== END 2024-03-26 14:03 | disposition home or self-care (01) ==
LOC: HO.BBR 14:02
PROVIDERS: Visit Provider Internal Medicine Medical Oncology
DX: D75.1 Secondary polycythemia (principal)
CPT/HCPCS: 36415; 85018; 85025; 99195

== ENCOUNTER 2024-05-01 15:13 | Outpatient (REF) | payer MEDICARE, SELFPAY | END 2024-05-01 15:14 | disposition home or self-care (01) | LOC: HO.MAMMO 15:13 | PROVIDERS: PCP Internal Medicine; Visit Provider Internal Medicine | DX: Z12.31 Encounter for screening mammogram for malignant neoplasm of breast (principal) | CPT/HCPCS: 77063; 77067 ==

== ENCOUNTER → 2024-05-01 15:30 | Outpatient (BNV) | payer MEDICARE, SELFPAY | PROVIDERS: PCP Internal Medicine; Visit Provider Internal Medicine | DX: Z12.31 Encounter for screening mammogram for malignant neoplasm of breast (principal) | CPT/HCPCS: 77063; 77067 ==

== ENCOUNTER 2024-05-28 11:02 | Outpatient (REF) | payer MEDICARE, SELFPAY ==
[2024-05-28 11:12] LABS: MANUAL DIFF FLAG NO
[2024-05-28 11:15] LABS: Basophils Absolute Auto 0.1 X10*3/uL (0.0-0.2); Basophils Percent Auto 0.7 % (0-2); Eosinophils Absolute Auto 0.2 X10*3/uL (0.0-0.4); Eosinophils Percent Auto 2.7 % (0-4); Hematocrit 40.9 % (37.0-47.0); Hemoglobin 13.1 g/dl (12.0-16.0); Imm Gran Abs Auto 0.03 X10*3/uL (0.00-0.03); Imm Gran Pct Auto 0.3 % (0.0-0.4); Lymphocytes Absolute Auto 1.7 X10*3/uL (1.2-4.9); Lymphocytes Percent Auto 19.5 % (20-40); Mean Corpuscular Hemoglobin 32.1 pg (27.0-33.0); Mean Corpuscular Volume 100.2 fL (80.0-98.0); Mean Platelet Volume 9.8 fL (9.4-12.3); Monocytes Absolute Auto 0.9 X10*3/uL (0.1-1.2); Monocytes Percent Auto 10.6 % (2-11); Neutrophils Absolute Auto 5.9 x10*3/uL (2.0-8.3); Neutrophils Percent Auto 66.2 % (45-73); Platelet Count 356 X10*3/uL (160-400); Red Blood Count 4.08 X10*6/uL (4.20-5.50); Red Cell Distribution Width 14.3 % (11.0-16.0); White Blood Count 8.9 X10*3/uL (4.8-10.8)
--- OUTSIDE RECORDS SUMMARY | 2024-05-28 12:30 | XMS_ITS ---
Author Organization Rajinder Guerrero III, MD Address [address] [place] [address] Care Team Providers Care Principal Software Engineer Name Role Phone Roderick TAPIA, [facility] Primary Care Provider Rajinder Camargo Unavailable [phone] Allergies Allergen (clinical drug ingredient) Drug/Non Drug [...] W/U Status Risk Notes Problem Polycythemia vera ([id number]) Polycythemia vera (D45) Active confirmed Her polycythemia [...] Date Provider Diagnosis Rajinder Guerrero III, MD [address] [place] [address] [place] [address] 09/22/2023 Rajinder Guerrero Iron deficiency E61. 1 [...] smoking cessation program at [facility]. 09/22/2023 Polycythemia vera (ICD-10 - [...] Up: 6 Months, Reason: OV Provider Name:Rajinder Rodriguesne, 10/17/2024 09:15:00 AM, [address] [place] [address], [facility] [address], [place], [address], Progress Notes * CATRACHITOLarisa CLEMENTSDOB:1955 (68 yo F)Acc No.[id number]:09/22/2023 Progress Notes Patient:?Larisa Dee Provider:?Rajinder Guerrero MD :1955???Age:68 Y???Sex:Female D ate:09/22/2023 Address:[address] [place], [place] [address] Pcp:Deandra Vaughn MD Subjective: * Chief Complaints: [...] Tobacco Non-User?Ex-cigarette smoker ???She was born in [place] and is . She has 2 sons and works at [employer] in [place]. * Medications:?TakingLORazepam 1 MG Tablet 1 tablet [...] - 09/20/2023) (Collection Date - 09/20/2023)? ValueReference Range?[id number] - ng/mL * Examination: ???General Examination: ?GENERAL [...] smoking cessation program at [facility]. 4.?Polycythemia vera - D45, Her polycythemia is [...] Provider:?Rajinder Guerrero MD Date:?10/2023 Generated for Jannie stover/Baljit/eTransmitting on:?05/28/2024 12:30 PM EST History and Physical Notes * [...]
--- OUTSIDE RECORDS SUMMARY | 2024-05-28 12:30 | XMS_ITS ---
Author Organization Rajinder Guerrero III, MD Address [address] [place] [address] Care Team Providers Care Gas Engineer Name Role Phone Roderick TAPIA, [facility] Primary Care Provider Rajinder Camargo Unavailable [phone] Allergies Allergen (clinical drug ingredient) Drug/Non Drug [...] Date Provider Diagnosis Rajinder Guerrero III, MD [address] [place] [address] [place] [address] 04/18/2024 Rajinder Guerrero Iron deficiency E61. 1 [...] her to the smoking cessation program at [facility]. 04/18/2024 Raynaud's syndrome without gangrene (ICD-10 [...] review labs, Routine follow-up Provider Name:Rajinder Guerrero, 10/17/2024 09:15:00 AM, [address] [place] [address] , [place] [address], [place], [address], Progress Notes * Larisa DEEDOB:1955 (69 yo F)Acc No.[id number]:04/18/2024 Progress Notes Patient:?Larisa DEE Provider:?Rajinder Guerrero MD :1955???Age:69 Y???Sex:Female D ate:04/18/2024 Address:[address] [place], [place] [address] Pcp:Deandra Vaughn MD Subjective: * Chief Complaints: * ???Polycythemia veraMorbid O besityTobacco dependenceCarcinoma left breast * HPI: ???COVID-19 Screening:?Questions?Have you had any new onset fever, chills, cough, congestion, sore throat, shortness of breath, muscle aches??Yes Muscle Aches ???:?The patient, a 69-year-old female, has been experiencing [...] visit and her body mass index is 40.? We discussed lifestyle modification she could make to lose weight.? She has been examining her breasts and has had no findings. Her examination today as well was normal.? No change was made in her regimen.? She has continued to need phlebotomy but her hematocrit is 40%. * ROS:?General/Constitutional:?pain?only normal aches and pains.?Chills?denies.?Fatigue?admits.?Fever?denies.?ENT:?Decreased hearing?denies.?Respiratory:?Cough?denies.?Cardiovascular:?Chest pain with exertion?denies.?Dyspnea on exertion?denies.?Shortness of breath?denies.?Gastrointestinal:?Constipation?occasional.?Decreased appetite?denies.?Diarrhea?denies.?Heartburn?denies.?Nausea?denies.?Rectal bleeding?denies.?Vomiting?denies.?Hematology:?bruising?denies.?petechiae?denies.?Swollen glands?none have been noted.?Genitourinary:?Frequent urination?denies.?Musculoskeletal:?Muscle aches?denies.?Painful joints?denies.?Sciatica?denies.?Weakness?denies.?Skin:?Itching?denies.?Rash?denies.?Skin lesion(s)?denies.?Neurologic:?Difficulty speaking?denies.?Dizziness?denies.?Headache?denies.?Low back pain?denies.?Psychiatric:?Depressed mood?denies.?Cancer Self-Management:?Admits?Colonoscopy.? * Medical History:? * Surgical History:?left breas t lumpectomy,SN, invasive lobular carcinoma 06/2017drainage tonsillar abscess 12/2018Cholecystectomy allbladder surgery * Hospitalization/Major Diagno stic Procedure:?tonsilitis 09/2021No history * Family History:?Father: dece ased 60 yrs, brain cancer, hypertension, diagnosed with Cancer.?Mother: 68 yrs, stroke,angina.?Son(s): alive.?6 brother(s) , 1 sister(s) . 2 son(s) - healthy. .? Two brothers have hypertension. One brother was diagnosed with RSD. His oldest son has celiac disease. * Social History:?Tobacco Use:?Tobacco Use/Smoking?Patient is a?current smoker ???Drugs/Alcohol:?Drugs?Have you used drugs other than those for medical reasons in the past 12 months??No ?Alcohol Screen?Did you have a drink containing alcohol in the past year??Yes ?How often did you have a drink containing alcohol in the past year??2 to 4 times a month (2 points) ?How many drinks did you have on a typical day when you were drinking in the past year??1 or 2 drinks (0 point) ?How often did you have 6 or more drinks on one occasion in the past year??Never (0 point) ?Points?2 ?Interpretation?Negative ???She was born in [place] and is . She has 2 sons and works at [employer] in [place]. Smoking: Occasional, Exercise: Uses an exercise bike. * Medications:?TakingPravastat in Sodium 40 MG Tablet 1 tablet Orally [...] All ergyno[Allergies Verified] Objective: * Vitals:?Ht: 65, Wt:243, BMI: 40.43, BP:139/78, HR:80, Temp:98.1, Wt-k.22. * ???Past Orders: Lab:Therapeutic Phlebotomy * Collection Date 03/26/2024 [...] Date 03/26/2024 01/24/2024 12/06/2023 White Blood Count 11.0?H (Ref Range: 4.8-10.8 X10*3/uL) 9.9 (Ref Range: 4.8-10.8 X10*3/uL) 9.6 (Ref Range: 4.8-10.8 X10*3/uL) Red Blood Count 4.17?L (Ref Range: 4.20-5.50 X10*6/uL) 4.30 (Ref Range: 4.20-5.50 X10*6/uL) 4.09?L (Ref Range: 4.20-5.50 X10*6/uL) Hemoglobin 13.5 (Ref Range: 12.0-16.0 g/dl) 14.3 (Ref Range: 12.0-16.0 g/dl) 13.5 (Ref Range: 12.0-16.0 g/dl) Hematocrit 41.7 (Ref Range: 37.0-47.0 %) 43.6 (Ref Range: 37.0-47.0 %) 40.6 (Ref Range: 37.0-47.0 %) Mean Corpuscular Volume 100.0?H (Ref Range: 80.0-98.0 fL) 101.4?H (Ref Range: 80.0-98.0 fL) 99.3?H (Ref Range: 80.0-98.0 fL) Mean Corpuscular Hemoglobin 32.4 (Ref Range: 27.0-33.0 pg) 33.3?H (Ref Range: 27.0-33.0 pg) 33.0 (Ref Range: [...] Percent Auto 71.1 (Ref Range: 45-73 %) 74.0?H (Ref Range: 45-73 %) 70.9 (Ref Range: 45-73 %) Imm Gran Pct Auto 0.3 (Ref Range: 0.0-0.4 %) 0.3 (Ref Range: 0.0-0.4 %) 0.2 (Ref Range: 0.0-0.4 %) Lymphocytes Percent Auto 17.3?L (Ref Range: 20-40 %) 15.6?L (Ref Range: 20-40 %) 18.5?L (Ref Range: 20-40 %) Monocytes Percent Auto [...] 0.000 (Ref Range: 0.0-0.012 X10*3/uL) * Examination: ???General Examination: ?GENERAL APPEARANCE:?pleasant, well nourished, well developed, in no acute distress, calm and relaxed, morbidly obese, woman.?HEAD:?atraumatic, normocephalic.?EYES:?eomi, perrla, anicteric, conjugate.?EARS:?normal.?NOSE:?septum intact.?ORAL CAVITY:?normal, unremarkable.?NECK/THYROID:?no jugular venous distention, no carotid bruit, thyroid normal.?LYMPH NODES:?no enlarged lymph nodes,spleen normal.?SKIN:?no suspicious lesions, anicteric.?HEART:?no clicks, gallops, murmurs, or rubs, regular rhythm, S1, S2 normal, no s3, or vascular bruits.?LUNGS:?clear to auscultation, no wheezes, rales, rhonchi, good air movement.?BREASTS:?no dimpling, no discharge, no drainage, no masses palpable bilaterally, nontender, All scars healed.?ABDOMEN:?bowel sounds normal, no ascites, no organomegaly, no mass, morbid obesity.?RECTAL EXAM:?not examined.?MUSCULOSKELETAL:?extremities unremarkable, no clubbing, cyanosis or edema.?PERIPHERAL PULSES:?normal.?NEUROLOGIC:?alert and oriented, cranial nerves 2-12 grossly intact, deep tendon reflexes 2+ symmetrical, motor strength normal upper and lower extremities, sensory exam intact.?PSYCH:?alert, oriented.? : ???Breasts:Normal, Ears: Normal, Blood Work: Normal. ??? Assessment: * Assessment: 1.?Polycythemia vera - D45 ( Primary)???Notes :Her polycythemia is stable and her hematocrit is in the normal range. She will have the CBC done every 2 months instead of one now that she is stable. She will avoid taking iron-containing medications.???2.?Iron deficiency - E61.1???Notes :She is no longer anemic and a mean cell volume is macrocytic. She'll be observed carefully. The iron will be continued. Comprehensive blood work with a ferritin has been ordered.She has been phlebotomize continuously.? Close observation will occur and.? Treatment used if necessary.???3.?Celiac disease - K90.0???Notes :She has had no change in her gastrointestinal symptoms. Her weight is stable and she seems happy and well. No treatment is necessary today.???4.?Tobacco dependence - F17.200???Notes :She continues to smoke and I have made her aware of the health consequences doing so. I have referred her to the smoking cessation program at [facility].???5.?Raynaud's syndrome without gangrene - I73.00???Notes :No further episodes of Raynaud's syndrome have occurred since her last visit.???6.?Malignant neoplasm of upper-outer quadrant of left female breast, unspecified estrogen receptor status - C50.412???Notes :She continues with surveillance mammography and breast self examination. There was no sign of metastatic disease or recurrence today. Her anastrozole was continued.???7.?Morbid obesity - E66.01???Notes :She has gained 8 pounds and her body mass index is now 40. We have reviewed diet and nutrition. We have made a plan to lose weight at a rate of one half of a pound per week through a diet restricted in fat calories and sodium combined with regular physical activity.??? Plan: * Treatment: 2.?Celiac disease?LAB: PROFILE, FASTING (COMPREHENSIVE METABOLIC) ?LAB: CBC w DIFF ?LAB: Ferritin ?LAB: Lipid Panel 3.?Raynaud's syndrome withou t gangrene?LAB: PROFILE, FASTING (COMPREHENSIVE METABOLIC) ?LAB: CBC w DIFF ?LAB: Ferritin ?LAB: Lipid Panel * Procedure Codes:? * Preventive Medicine:? ??Counseling:?Care [...] dangers of tobacco use and urged to quit.?04/18/2024 * Follow Up:?6 Months, In six months (Reason: ov review labs, Routine follow-up) * Images: * Sign off status: Completed true * Provider:?Rajinder Guerrero MD Date:?05/2024 Generated for Jannie stover/Baljit/Katerineitting on:?05/28/2024 12:30 PM EST History and Physical [...]
--- OUTSIDE RECORDS SUMMARY | 2024-05-28 12:31 | XMS_ITS | Patient Health Record ---
Author Organization [facility] Address [address] [place] [address] Care Team Providers Care Wafer Fabrication Operator Name Role Phone Deandra Vaughn Primary Care Provider UnavailTevin Gao Jr Unavailable ALLERGIES Allergen (clinical drug ingredient) Drug/Non Drug [...] unspecified whether esophagitis present (K21.9) Active confirmed 673990269 Problem Bloating (R14.0) Active confirmed 97619 9008 Problem Colon cancer screening (Z12.11) Active confirmed 088560042 Problem GERD (gastroesophageal reflux disease) (K21.9) Active confirmed Gastroesophagea l reflux disease (504524958) PLAN OF TREATMENT Future Test Test Name Order Date UPPER GI ENDOSCOPY 01/04/2023 COLONOSCOPY 01/04/2023 Insurance Providers Payer Name Payer Address Payer Phone Subscriber Number Group Number Insured Name Patient Relationship to Insured Coverage Start Date Coverage End Date Aetna (No Referra l) [address] [address] [place] [address] [id number] PIYUSH DEE Self - patient is the insured MEDICAL (GENERAL) HISTORY Medical History History ICD Code Hypertension Hyperlipidemia Left breast cancer, XRT and hormonal the rapy Polycythemia Anxiety Recent seizures, MRI of the brain pendabby bullock Colonoscopy 07/25/08, hyperplastic polyps x2, ten-year followup Surgical History Surgery Date(Month/Year) Left breast cancer, lumpectomy/axillary node dissection 08/02 Cholecystectomy 10/07
--- OUTSIDE RECORDS SUMMARY | 2024-05-28 12:31 | XMS_ITS ---
Author Organization [facility] Address [address] [place] [address] Care Team Providers Care Nurse Research Name Role Phone FedeDeandra mccarthy Primary Care Provider Unavailab Tevin Bardales Jr Unavailable REASON FOR VISIT gerd,bloating,screening PROBLEMS Problem Type ICD Code Onset Dates Problem Status W/U Status Risk SNOMED Code Notes Problem GERD (gastroesop hageal reflux disease) (K21.9) Active confirmed Gastroesophagea l reflux disease (148362726) Encounters Encounter Location Date Provider Diagnosis [facility] Outpatient [address] [place] [phone] 02/21/2023 Tevin Hayes Jr Encounter for screening [...]
--- OUTSIDE RECORDS SUMMARY | 2024-05-28 12:31 | XMS_ITS ---
Author Organization [facility] Address [address] [place] [address] Care Team Providers Care Bench Assembler Battery Name Role Phone Deandra Vaughn Primary Care Provider Unavailab Tevin Bardales Jr REASON FOR VISIT Is prior authorization needed? Encounters Encounter Location Date Provider Diagnosis [facility] [address] [place] [address] 01/26/2023 Tevin Hayes Jr PLAN OF TREATMENT No Information
--- OUTSIDE RECORDS SUMMARY | 2024-05-28 12:31 | XMS_ITS ---
Author Organization Rajinder Guerrero III, MD Address [address] [place] [address] [address] [facility] [place] [address] Care Team Providers Care Community Health Advocate Name Role Phone Roderick TAPIA, Deandra Primary Care Provider Rajinder Camargo Unavailable [phone] REASON FOR VISIT Follow-up Social History Sex Assigned At : Social History Observation Description Sex Assigned At Female Encounters Encounter Location Date Provider Diagnosis Rajinder Guerrero III, MD [address] [place] [address] [address] [place] [facility] [place] [address] 03/25/2024 Rajinder Guerrero Plan Of Treatment Next Appt Details Provider Name:Rajinder Guerrero, 10/17/2024 09:15:00 AM, [address] [place] [address] [address], [place], [address], Progress Notes * Larisa DEEDOB:1955 (69 yo F)Acc No.[id number]:03/25/2024 Progress Notes Patient:?Larisa DEE Provider:?Rajinder Guerrero MD :1955???Age:69 Y???Sex:Female D ate:03/25/2024 Address:[address] [place], [place] [id number] Pcp:Deandra Vaughn MD Subjective: * Chief Complaints: [...] Guerrero MD Date:?12/2023 Generated for Jannie stover/Baljit/Annalise on:?05/28/2024 12:31 PM EST
--- OUTSIDE RECORDS SUMMARY | 2024-05-28 12:31 | XMS_ITS ---
Author Organization [facility] Address [address] [place] [address] Care Team Providers Care An Employee Sponsor Or Advocate And Name Role Phone Deandra Vaughn Primary Care Provider Unavailab Tevin Bardales Jr [phone] REASON FOR VISIT pathology Encounters Encounter Location Date Provider Diagnosis [facility] [address] [place] [address] 02/24/2023 Tevin Hayes Jr PLAN OF TREATMENT No Information
== END 2024-05-28 11:03 | disposition home or self-care (01) ==
LOC: HO.BBR 11:02
PROVIDERS: PCP Internal Medicine; Visit Provider Internal Medicine Medical Oncology
DX: D75.1 Secondary polycythemia (principal)
CPT/HCPCS: 36415; 85014; 85018; 85025; 99195

== ENCOUNTER 2024-07-30 09:59 | Outpatient (REF) | payer MEDICARE, SELFPAY ==
[2024-07-30 10:09] LABS: MANUAL DIFF FLAG NO
[2024-07-30 10:11] LABS: Basophils Absolute Auto 0.1 X10*3/uL (0.0-0.2); Basophils Percent Auto 0.6 % (0-2); Eosinophils Absolute Auto 0.2 X10*3/uL (0.0-0.4); Eosinophils Percent Auto 1.9 % (0-4); Hematocrit 37.4 % (37.0-47.0); Hemoglobin 12.5 g/dl (12.0-16.0); Imm Gran Abs Auto 0.03 X10*3/uL (0.00-0.03); Imm Gran Pct Auto 0.4 % (0.0-0.4); Lymphocytes Absolute Auto 1.7 X10*3/uL (1.2-4.9); Lymphocytes Percent Auto 20.5 % (20-40); Mean Corpuscular HGB Conc 33.4 g/dl (31.0-35.0); Mean Corpuscular Hemoglobin 33.2 pg (27.0-33.0); Mean Corpuscular Volume 99.2 fL (80.0-98.0); Mean Platelet Volume 9.7 fL (9.4-12.3); Monocytes Absolute Auto 0.8 X10*3/uL (0.1-1.2); Monocytes Percent Auto 9.7 % (2-11); Neutrophils Absolute Auto 5.7 x10*3/uL (2.0-8.3); Neutrophils Percent Auto 66.9 % (45-73); Platelet Count 327 X10*3/uL (160-400); Red Blood Count 3.77 X10*6/uL (4.20-5.50); Red Cell Distribution Width 14.7 % (11.0-16.0); White Blood Count 8.5 X10*3/uL (4.8-10.8)
--- OUTSIDE RECORDS SUMMARY | 2024-07-30 11:33 | XMS_ITS | Patient Health Record ---
Author Organization [facility] Address [address] [place] [address] Care Team Providers Care Manager Plan Name Role Phone Deandra Vaughn Primary Care Provider UnavailTevin Gao Jr Unavailable Allergies Allergen (clinical drug ingredient) Drug/Non Drug Allergy documented on EMR Reaction Allergy Type Onset Date Status Gluten Gluten Unknown Allergy Active Eggs or Egg-derived Products Unknown Drug Allergy Active Reason For Referral No Information Medications Medication [...] Sodium 80 MG Oral for 90 Active Immunizations Vaccine Route Administration Date Status Comme nts Influenza Unknown 01/04/2022 Administered Social History Tobacco Use: Social History Observation Description Date Details (start date - stop date) Current Smoker NA - NA Tobacco Use/Smoking Question Answer Notes Patient is [...] Problem Status W/U Status Risk Notes Problem 783752447 Colon cancer screening (Z12.11) Active confirmed Problem 640183665 Bloating (R14.0) Active confirmed Problem Gastroesophageal reflux disease (745868046) GERD (gastroesophageal reflux disease) (K21.9) Active confirmed Problem 695593118 Gastroesophageal reflux disease, unspecified whether esophagitis present (K21.9) Active confirmed Plan Of Treatment Future Test Test Name Order Date UPPER GI ENDOSCOPY 01/04/2023 COLONOSCOPY 01/04/2023 Insurance Providers Payer Name Payer Address Payer Phone Subscriber Number Group Number Insured Name Patient Relationship to Insured Coverage Start Date Coverage End Date Aetna (No Referra l) [address] [address] [place] [address] [id number] PIYUSH DEE Self - patient is the insured Medical (General) History Medical History History ICD Code Hypertension Hyperlipidemia Left breast cancer, XRT and hormonal the rapy Polycythemia Anxiety Recent seizures, MRI of the brain pendin g Colonoscopy 07/25/08, hyperplastic polyps x2, ten-year followup Surgical History Surgery Date(Month/Year) Left breast cancer, lumpectomy/axillary node dissection 08/02 Cholecystectomy 10/07
--- OUTSIDE RECORDS SUMMARY | 2024-07-30 11:33 | XMS_ITS ---
Author Organization Rajinder Guerrero III, MD Address [address] [place] [address] Care Team Providers Care Tool Grinder Operator Surface Name Role Phone Roderick TAPIA, [facility] Primary Care Provider Rajinder Camargo Unavailable [phone] Allergies Allergen (clinical drug ingredient) Drug/Non Drug [...] W/U Status Risk Notes Problem Polycythemia vera (110607455) Polycythemia vera (D45) Active confirmed Her polycythemia [...] Provider Diagnosis Rajinder Guerrero III, MD [address] [place] [address] [place] [address] 09/22/2023 Rajinder Guerrero Iron deficiency E61. 1 [...] her to the smoking cessation program at [facility]. 09/22/2023 Polycythemia vera (ICD-10 - D45) [...] OV Provider Name:Rajinder Rodriguesne, 10/17/2024 09:15:00 AM, [address] [place] [address], [facility] [address], [place], [address], Progress Notes * CATRACHITOLarisa CLEMENTSDOB:1955 (68 yo F)Acc No.[id number]:09/22/2023 Progress Notes Patient:?Larisa Dee Provider:?Rajinder Guerrero MD :1955???Age:68 Y???Sex:Female D ate:09/22/2023 Address:[address] [place], [place] [address] Pcp:Deandra Vaughn MD Subjective: * Chief Complaints: [...] Tobacco Non-User?Ex-cigarette smoker ???She was born in [place] and is . She has 2 sons and works at [employer] in [place]. * Medications:?TakingLORazepam 1 MG Tablet 1 tablet [...] - 09/20/2023) (Collection Date - 09/20/2023)? ValueReference Range?Mozcpntc4285-206 - ng/mL * Examination: ???General Examination: ?GENERAL [...] her to the smoking cessation program at [facility]. 4.?Polycythemia vera - D45, Her polycythemia [...] * Provider:?Rajinder Guerrero MD Date:?10/2023 Generated for Cintiai jolanta/Baljit/eTransmitting on:?07/30/2024 11:32 AM EDT History and Physical Notes * [...]
--- OUTSIDE RECORDS SUMMARY | 2024-07-30 11:33 | XMS_ITS ---
Author Organization Rajinder Guerrero III, MD Address [address] [place] [place] [address] Care Team Providers Care Home Appraiser Name Role Phone Roderick TAPIA, [facility] Primary Care Provider Rajinder Camargo Unavailable [phone] Allergies Allergen (clinical drug ingredient) Drug/Non Drug [...] Date Provider Diagnosis Rajinder Guerrero III, MD [address] [place] [address] [place] [address] 04/18/2024 Rajinder Guerrero Iron deficiency E61. 1 [...] her to the smoking cessation program at [facility]. 04/18/2024 Raynaud's syndrome without gangrene [...] follow-up Provider Name:Rajinder Guerrero, 10/17/2024 09:15:00 AM, [address] [place] [address] , [place] [address], [place], [address], Progress Notes * Larisa DEEDOB:1955 (69 yo F)Acc No.[id number]:04/18/2024 Progress Notes Patient:?Larisa DEE Provider:?Rajinder Guerrero MD :1955???Age:69 Y???Sex:Female D ate:04/18/2024 Address:[address] [place], [place] [address] Pcp:Deandra Vaughn MD Subjective: * Chief Complaints: [...] point) ?Points?2 ?Interpretation?Negative ???She was born in [place] and is . She has 2 sons and works at [employer] in [place]. Smoking: Occasional, Exercise: Uses an exercise bike. [...] her to the smoking cessation program at [facility].???5.?Raynaud's syndrome without gangrene - I73.00???Notes :No [...] Provider:?Rajinder Guerrero MD Date:?05/2024 Generated for Jannie stover/Baljit/eTcinthiasmitting on:?07/30/2024 11:32 AM EDT History and Physical [...]
--- OUTSIDE RECORDS SUMMARY | 2024-07-30 11:33 | XMS_ITS ---
Author Organization [facility] Address [address] [place] [address] Care Team Providers Care Clay Miner Name Role Phone Deandra Vaughn Primary Care Provider Unavailab Tevin Bardales Jr REASON FOR VISIT pathology Encounters Encounter Location Date Provider Diagnosis [facility] [address] [place] [address] 02/24/2023 Tevin Hayes Jr Plan Of Treatment No Information Progress Notes * PIYUSH DEEDOB:1955 (67 yo F)Acc No.[id number]:02/24/2023 Patient:?PIYSUH DEE :1955???Age:67 Y???Sex:Female Address:[address] [place] [address] * true * Date:? Generated for Printi ng/Falittleg/eTransmitting on:?07/30/2024 11:33 AM EDT
--- OUTSIDE RECORDS SUMMARY | 2024-07-30 11:34 | XMS_ITS ---
Author Organization Rajinder Guerrero III, MD Address [address] [place] [address] [address] [place] [address] Care Team Providers Care Geothermal Operating Engineer Name Role Phone Roderick TAPIA, Deandra Primary Care Provider Rajinder Camargo Unavailable [phone] REASON FOR VISIT Follow-up Social History Sex Assigned At : Social History Observation Description Sex Assigned At Female Encounters Encounter Location Date Provider Diagnosis Rajinder Guerrero III, MD [address] [place] [address] [address] [place] [address] 03/25/2024 Rajinder Guerrero Plan Of Treatment Next Appt Details Provider Name:Rajinder Guerrero, 10/17/2024 09:15:00 AM, [address] [place] [address] [address], [place], [address], Progress Notes * Larisa DEEDOB:1955 (69 yo F)Acc No.[id number]:03/25/2024 Progress Notes Patient:?Larisa DEE Provider:?Rajinder Guerrero MD :1955???Age:69 Y???Sex:Female D ate:03/25/2024 Address:[address] [place], [place] [id number] Pcp:Deandra Vaughn MD Subjective: * Chief Complaints: [...] Guerrero MD Date:?12/2023 Generated for Jannie stover/Baljit/Annalise on:?07/30/2024 11:33 AM EDT
--- OUTSIDE RECORDS SUMMARY | 2024-07-30 11:34 | XMS_ITS ---
Author Organization [facility] Address [address] [place] [address] Care Team Providers Care Information Technology Associate Name Role Phone Deandra Vaughn Primary Care Provider Unavailab Tevin Bardales Jr REASON FOR VISIT gerd,bloating,screening Problems Problem Type SNOMED Code ICD Code Onset Dates Problem Status W/U Status Risk Notes Problem Gastroesophageal reflux disease (436398319) GERD (gastroeso phageal reflux disease) (K21.9) Active confirmed Encounters Encounter Location Date Provider Diagnosis [facility] [place] [address] [place] [phone] 02/21/2023 Tevin Hayes Jr Encounter for screening colonoscopy Z12.11 ; Colon polyps K63.5 ; GERD (gastroesophageal reflux disease) K21.9 and Bloating R14.0 Assessments Encounter Date Diagnosis (ICD Code) Assessment Notes Treatment Notes Treatment Clinical Notes Section Notes 02/21/2023 Encounter for screening colonoscopy (ICD-10 - Z12.11) 02/21/2023 Colon polyps (ICD-10 - K63.5) 02/21/2023 GERD (gastroesophagea l reflux disease) (ICD-10 - K21.9) 02/21/2023 Bloating (ICD-10 - R14.0) Plan Of Treatment No Information Progress Notes * PIYUSH DEEDOB:1955 (69 yo F)Acc No.[id number]:02/21/2023 EGD and COL/MAC Patient:?PIYUSH DEE Provider:?Tevin Hayes MD :1955???Age:67 Y???Sex:Female D ate:02/21/2023 Address:[place] Pcp:Deandra Vaughn Subjective: * Chief Complaints: * ???1. Gerd,bloating,screenin g. * Medical History:? Objective: * Vitals:? Assessment: * Assessment: 1.?Encounter for screening c olonoscopy - Z12.11 (Primary)???2.?Colon polyps - K63.5???3.?GERD (gastroesophageal reflux disease) - K21.9???4.?Bloating - R14.0??? Plan: * Treatment: * Procedure Codes:?18863 COLON OSCOPY AND BIOPSY, 35999 UPPER GI ENDOSCOPY, BIOPSY * * The named appointment provid er may or may not be the originator of this progress note, and it is not deemed complete until electronically signed by the appointment provider. Sign off status: Pending * Provider:?Tevin Hayes MD Date:?1 04/23/2022 Generated for Jannie stover/Baljit/eTransmitting on:?07/30/2024 11:33 AM EDT
--- OUTSIDE RECORDS SUMMARY | 2024-07-30 11:34 | XMS_ITS | Patient Health Record ---
Author Organization Rajinder Guerrero III, MD Address [address] [place] [address] Care Team Providers Care Nurse Private Duty Name Role Phone Roderick TAPIA, [facility] Primary Care Provider Rajinder Camargo Unavailable [phone] Allergies Allergen (clinical drug ingredient) Drug/Non Drug Allergy documented on EMR Reaction Allergy Type Onset Date Status No Known Drug Allergy Unknown Drug Allergy Active Results Component Value Reference Range Notes Complete Blood Count Auto Di ff Reviewed date:09/22/2023 02:59:21 PM Interpretation: Performing Lab:[facility], [address] [place] [phone] Notes/Report: White Blood Count 8.0 4.8-10.8 X10*3/uL [...] Phlebotomy Reviewed date:09/22/2023 02:59:21 PM Interpretation: Performing Lab:[address] [phone] Notes/Report: THER/HGB TNP 12.0-16.0 g/dL Lab Results on file. Performed at [facility] on 08/08/23: Hgb: 14.1 g/dl Hct: 42.4 % THER/HCT TNP 37.0-47.0 % Therapeutic Phlebotomy Phlebotomy Performed 500 mls drawn on 08/08/23. Please note that a copy of this report has been sent to the Primary Care Physician, the ordering physician and any physician designated by patient request. Complete Blood Count Auto Di ff Reviewed date:09/22/2023 02:59:21 PM Interpretation: Performing Lab:[facility], [address] [place] [phone] Notes/Report: White Blood Count 7.2 4.8-10.8 X10*3/uL [...] Panel Reviewed date:09/22/2023 02:59:21 PM Interpretation: Performing Lab:[facility], [address] [place] [phone] Notes/Report: Sodium 144 135-145 mmol/L Potassium 4.6 3.3-5.1 mmol/L Chloride 109 96-108 mmol/L Carbon Dioxide 25 22-29 mmol/L Anion Gap 15 12-20 Blood Urea Nitrogen 17 9-16 mg/dL Creatinine 0.87 0.5-1.4 mg/dL Estimated Glomerular Filt Rate > 60 NOTE: For -[place] individuals, multiply the result by 1.210. Chronic [...] Ferritin Reviewed date:09/22/2023 02:59:21 PM Interpretation: Performing Lab:[facility], [address] [place] [phone] Notes/Report: Ferritin 20 10-250 ng/mL Complete Blood Count Auto Di ff Reviewed date:10/16/2023 04:39:47 PM Interpretation: Performing Lab:[facility], [address] [place] [phone] Notes/Report: White Blood Count 7.3 4.8-10.8 X10*3/uL [...] Phlebotomy Reviewed date:10/16/2023 04:39:47 PM Interpretation: Performing Lab:[facility], [address] [place] [phone] Notes/Report: THER/HGB TNP 12.0-16.0 g/dL Lab Results on file. Performed at [facility] on 10/09/23: Hgb: 13.6 g/dl Hct: [...] ff Reviewed date:12/08/2023 03:45:09 PM Interpretation: Performing Lab:[facility], [address] [place] [phone] Notes/Report: White Blood Count 9.6 4.8-10.8 X10*3/uL [...] Phlebotomy Reviewed date:12/08/2023 03:45:09 PM Interpretation: Performing Lab:[facility], [address] [place] [phone] Notes/Report: THER/HGB TNP 12.0-16.0 g/dL Lab Results on file. Performed at [facility] on 12/06/23: Hgb: 13.5 g/dl Hct: [...] ff Reviewed date:01/29/2024 07:10:24 AM Interpretation: Performing Lab:[facility], [address] [place] [phone] Notes/Report: White Blood Count 9.9 4.8-10.8 X10*3/uL [...] Phlebotomy Reviewed date:01/29/2024 07:10:24 AM Interpretation: Performing Lab:[address] [phone] Notes/Report: THER/HGB TNP 12.0-16.0 g/dL Lab Results on file. Performed at [facility] on 01/24/24: Hgb: 14.3 g/dl Hct: 43.6 % THER/HCT TNP 37.0-47.0 % Therapeutic Phlebotomy Phlebotomy Performed 500 mls drawn on 01/24/24. Please note that a copy of this report has been sent to the Primary Care Physician, the ordering physician and any physician designated by patient request. Complete Blood Count Auto Di ff Reviewed date:04/08/2024 06:11:33 AM Interpretation: Performing Lab:[facility], [address] [place] [phone] Notes/Report: White Blood Count 11.0 4.8-10.8 X10*3/uL [...] Auto 0.000 0.0-0.012 X10*3/uL Therapeutic Phlebotomy Reviewed date:04/08/2024 06:11:33 AM Interpretation: Performing Lab:[address] [phone] Notes/Report: THER/HGB TNP 12.0-16.0 g/dL Lab Results on file. Performed at [facility] on 03/26/24: Hgb: 13.5 g/dl Hct: 41.7 % THER/HCT TNP 37.0-47.0 % Therapeutic Phlebotomy Phlebotomy Performed 500 mls drawn on 03/26/24. Please note that a copy of this report has been sent to the Primary Care Physician, the ordering physician and any physician designated by patient request. Complete Blood Count Auto Di ff Reviewed date:06/09/2024 09:13:32 AM Interpretation: Performing Lab:[facility], [address] [place] [phone] Notes/Report: White Blood Count 8.9 4.8-10.8 X10*3/uL Red Blood Count 4.08 4.20-5.50 X10*6/uL Hemoglobin 13.1 12.0-16.0 g/dl Hematocrit 40.9 37.0-47.0 % Mean Corpuscular Volume 100.2 80.0-98.0 fL Mean Corpuscular Hemoglobin 32.1 27.0-33.0 pg Mean Corpuscular HGB Conc 32.0 31.0-35.0 g/dl Red Cell Distribution Width 14.3 11.0-16.0 % Platelet Count 356 160-400 X10*3/uL Mean Platelet Volume 9.8 9.4-12.3 fL Neutrophils Percent Auto 66.2 45-73 % Imm Gran Pct Auto 0.3 0.0-0.4 % Lymphocytes Percent Auto 19.5 20-40 % Monocytes Percent Auto 10.6 2-11 % Eosinophils Percent Auto 2.7 0-4 % Basophils Percent Auto 0.7 0-2 % NRBC Pct Auto 0.0 0.0-0.2 /100WBC Neutrophils Absolute Auto 5.9 2.0-8.3 x10*3/u L Imm Gran Abs Auto 0.03 0.00-0.03 X10*3/uL Lymphocytes Absolute Auto 1.7 1.2-4.9 X10*3/u L Monocytes Absolute Auto 0.9 0.1-1.2 X10*3/uL Eosinophils Absolute Auto 0.2 0.0-0.4 X10*3/u L Basophils Absolute Auto 0.1 0.0-0.2 X10*3/uL NRBC Abs Auto 0.000 0.0-0.012 X10*3/uL Therapeutic Phlebotomy Reviewed date:06/09/2024 09:13:32 AM Interpretation: Performing Lab:[facility], [address] [place] [phone] Notes/Report: THER/HGB TNP 12.0-16.0 g/dL Lab Results on file. Performed at [facility] on 05/28/24: Hgb: 13.1 g/dl Hct: 40.9 % THER/HCT TNP 37.0-47.0 % Therapeutic Phlebotomy TNP Reason: Pre-phlebotomy Hgb/Hct is below the established parameter for this patient. Please note that a copy of this report has been sent to the Primary Care Physician, the ordering physician and any physician designated by patient request. Complete Blood Count Auto Di ff (Not yet reviewed by provider) Interpretation: Performing Lab:[address] [phone] Notes/Report: White Blood Count 8.5 4.8-10.8 X10*3/uL Red Blood Count 3.77 4.20-5.50 X10*6/uL Hemoglobin 12.5 12.0-16.0 g/dl Hematocrit 37.4 37.0-47.0 % Mean Corpuscular Volume 99.2 80.0-98.0 fL Mean Corpuscular Hemoglobin 33.2 27.0-33.0 pg Mean Corpuscular HGB Conc 33.4 31.0-35.0 g/dl Red Cell Distribution Width 14.7 11.0-16.0 % Platelet Count 327 160-400 X10*3/uL Mean Platelet Volume 9.7 9.4-12.3 fL Neutrophils Percent Auto 66.9 45-73 % Imm Gran Pct Auto 0.4 0.0-0.4 % Lymphocytes Percent Auto 20.5 20-40 % Monocytes Percent Auto 9.7 2-11 % Eosinophils Percent Auto 1.9 0-4 % Basophils Percent Auto 0.6 0-2 % NRBC Pct Auto 0.0 0.0-0.2 /100WBC Neutrophils Absolute Auto 5.7 2.0-8.3 x10*3/u L Imm Gran Abs Auto 0.03 0.00-0.03 X10*3/uL Lymphocytes Absolute Auto 1.7 1.2-4.9 X10*3/u L Monocytes Absolute Auto 0.8 0.1-1.2 X10*3/uL Eosinophils Absolute Auto 0.2 0.0-0.4 X10*3/u L Basophils Absolute Auto 0.1 0.0-0.2 X10*3/uL NRBC Abs Auto 0.000 0.0-0.012 X10*3/uL Therapeutic Phlebotomy (Not yet reviewed by provider) Interpretation: Performing Lab:[facility], [address] [place] [phone] Notes/Report: THER/HGB TNP 12.0-16.0 g/dL Lab Results on file. Performed at [facility] on 07/30/24: Hgb: 12.5 g/dl Hct: 37.4% THER/HCT TNP 37.0-47.0 % Therapeutic Phlebotomy TNP [...] Problem Status W/U Status Risk Notes Problem 141977131 Obesity (E66.9) Active confirmed Her body mass index is 40. We discussed her diet and nutrition. We made a plan to lose weight at a rate of one half of a pound per week. Problem Postmenopausal state (17957537) Post-menopausal (Z78.0) Active confirmed She has not had a period in several years. Problem Polycythemia vera (641039555) Polycythemia vera (D45) Active confirmed Her polycythemia is stable and her hematocrit is in the normal range. She will have the CBC done every 2 months instead of one now that she is stable. She will avoid taking iron-containin g medications. Problem 70429426 Iron deficiency (E61.1) Active confirmed She is no longer anemic and a mean cell volume is macrocytic. She'll be observed carefully. The iron will be continued. Comprehensive blood work with a ferritin has been ordered.She has been phlebotomize continuously. Close observation will occur and. Treatment used if necessary. Problem 421994637 Raynaud's syndrome without gangrene (I73.00) Active confirmed No further episodes of Raynaud's syndrome have occurred since her last visit. Problem 12952659 Tobacco dependence (F17.200) Active confirmed She continues to smoke and I have made her aware of the health consequences doing so. I have referred her to the smoking cessation program at [facility]. Problem 196822235 Erythrocytosis (D75.1) Active confirmed She will continue the phlebotomy if needed. At this time her hematocrit and hemoglobin are normal. Currently, the increased red cell mass is well controlled. 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 There was no sign of metastatic disease or recurrence today. Her anastrozole was continued. Problem 834698118 Lobular carcinoma of left breast, stage 1 (C50.912) Active confirmed There is no sign of recurrence. The radiation changes are fading. All scars are well-healed. No masses are palpable. She will continue on the anastrozole for 5 years. She is having no side effects from the drug. Vital Signs Heart Rate 80 /min 04/18/2024 Temperature 98.1 degrees Fahrenheit 04/18/2024 Blood pressure diastolic 78 mm Hg 04/18/2024 Height 65 in 04/18/2024 Blood pressure systolic 139 mm Hg 04/18/2024 Weight 243 lbs 04/18/2024 BMI 40.43 kg/m2 04/18/2024 Encounters Encounter Location Date Provider Diagnosis Rajinder Guerrero III, MD [address] [place] [address] [address] [facility] [address] 09/22/2023 Rajinder Guerrero Iron deficiency E61. 1 ; Obesity E66.9 ; Tobacco dependence F17.200 and Polycythemia vera D45 Rajinder Guerrero III, MD [address] [place] [address] [address] [place] [address] 04/18/2024 Rajinder Guerrero Iron deficiency E61. 1 ; Polycythemia vera D45 ; Celiac disease K90.0 ; Tobacco dependence F17.200 ; Raynaud's syndrome without gangrene I73.00 ; Malignant neoplasm of upper-outer quadrant of left female breast, 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 and Morbid obesity E66.01 Assessments Encounter Date Diagnosis (ICD Code) Assessment Notes Treatment Notes Treatment Clinical Notes 09/22/2023 Obesity (ICD-10 - E66.9) Her body [...] work with a ferritin has been ordered. 04/18/2024 Polycythemia vera (ICD-10 - D45) Her polycythemia is stable and her hematocrit is in the normal range. She will have the CBC done every 2 months instead of one now that she is stable. She will avoid taking iron-containing medications. 04/18/2024 Iron deficiency (ICD-10 - E61.1) She is no longer anemic and a mean cell volume is macrocytic. She'll be observed carefully. The iron will be continued. Comprehensive blood work with a ferritin has been ordered.She has been phlebotomize continuously. Close observation will occur and. Treatment used if necessary. 09/22/2023 Tobacco dependence (ICD-10 - F17.200) She continues to smoke and I have made her aware of the health consequences doing so. I have referred her to the smoking cessation program at [facility]. 04/18/2024 Celiac disease (ICD-10 - K90.0) She [...] She will avoid taking iron-containing medications. 04/18/2024 Tobacco dependence (ICD-10 - F17.200) She continues to smoke and I have made her aware of the health consequences doing so. I have referred her to the smoking cessation program at [facility]. 04/18/2024 Raynaud's syndrome without gangrene [...] with regular physical activity. Plan Of Treatment Pending Test Test Name Order Date PROFILE, FASTING (COMPREHENSIVE METABOLI C) 04/18/2024 PROFILE, RANDOM (COMPREHENSIVE METABOLIC ) 03/21/2022 PROFILE, RANDOM (COMPREHENSIVE METABOLIC ) 04/29/2019 PROFILE, RANDOM (COMPREHENSIVE METABOLIC ) 06/30/2021 PROFILE, RANDOM (COMPREHENSIVE METABOLIC ) 09/22/2023 PROFILE, RANDOM (COMPREHENSIVE METABOLIC ) 11/13/2019 PROFILE, RANDOM (COMPREHENSIVE METABOLIC ) 07/20/2022 PROFILE, RANDOM (COMPREHENSIVE METABOLIC ) 10/19/2021 PROFILE, RANDOM (COMPREHENSIVE METABOLIC ) 12/30/2020 PROFILE, RANDOM (COMPREHENSIVE METABOLIC ) 05/19/2023 PROFILE, RANDOM (COMPREHENSIVE METABOLIC ) 08/27/2019 TSH (THYROID STIMULATING HORMONE) 2021 FERRITIN 08/27/2019 FERRITIN 04/29/2019 B12 06/30/2021 CBC w DIFF 06/30/2021 CBC w DIFF 12/30/2020 CBC w DIFF 04/18/2024 CBC w DIFF 08/27/2019 CBC w DIFF 03/21/2022 CBC w DIFF 11/13/2019 CBC w DIFF 07/20/2022 CBC w DIFF 04/29/2019 CBC w DIFF 10/19/2021 SED RATE (ESR) 12/30/2020 MAMMOGRAM DIGITAL BILATERAL SCREEN 06/14 CBC WITH AUTO DIFF 05/19/2023 CBC WITH AUTO DIFF 09/22/2023 Complete Blood Count Auto Diff RETIC 06/30/2021 Ferritin 05/19/2023 Ferritin 06/30/2021 Ferritin 04/18/2024 Ferritin 09/22/2023 Lipid Panel 04/18/2024 Folate 06/30/2021 Therapeutic Phlebotomy 07/30/2024 Next Appt Details Provider Name:Rajinder Guerrero, 10/17/2024 09:15:00 AM, [address] [place] [address] , [address], [place], [address], Insurance Providers Payer Name Payer Address Payer Phone Subscriber Number Group Number Insured Name Patient Relationship to Insured Coverage Start Date Coverage End Date [employer] [address] [place] [phone] [id number] ShajidenaLarisa Self - patient is the insured MEDICARE NGS [address] [place] [phone] [id number] Luiz Larisa Self - patient is the insured Medical (General) History Medical History History ICD Code history of iron deficiency celiac disease bunion left foot history of herpes zoster erythrocytosis episode of Raynaud's syndrome October invasive lobular carcinoma, l eft breast,ER+CO+Her-,8mm,N0 Left breast cancer in 2018, Gallbladder surgery in the past June 2017 invasive lobular carcinoma, l eft breast,ER+CO+Her-,8mm Surgical History Surgery Date(Month/Year) left breast lumpectomy,SN, invasive lobu lar carcinoma 06/2017 drainage tonsillar abscess 12/2018 Cholecystectomy 09/2022 Gallbladder surgery Hospitalization History Reason Date(Month/Year) tonsilitis 09/2021 No history
--- OUTSIDE RECORDS SUMMARY | 2024-07-30 11:34 | XMS_ITS | Data Portability ---
Author Organization [place] - [facility], Allergy Address [address] [address] Care Team Providers Care Director Of Planning Name Role Phone TIAGO SEAMAN Primary Care Provider Assessment No assessment recorded. Plan of Treatment Reminders Order Date Submit Date Provider Last Modified By Organization Details Last Modified Time Details Appointments None record ed. Lab None record ed. Referral None record ed. Procedures None record ed. Surgeries None record ed. Imaging None record ed. Medication Orders None record ed. Patient TargetsNo targets recorded. Patient Instructions Encounter Date Encounter Id Patient Instructions Last Modified By Organization Details Last Modified Time 06/10/2024 [id number] Patient with hig h body mass index and tonsil hypertrophy presents for evaluation of snoring and possible apnea. Fortunately she has had no more episodes of peritonsillar abscesses. She does have a large tongue 3+ tonsils and short cervical collar. High likelihood for sleep apnea based on examination. Suggest proceeding with the sleep study in July and considering CPAP as first-line treatment. Patient will message me after the sleep study so we can discuss the next steps ann Not available 06/10/2024 14:10:06 Reason for Referral None Reported. Problems Name Problem SNOMED Code Status Onset Date Resolution Date Notes Provider Name and Address Organization Details Recorded Time Peritonsi llar abscess 82151851 Active 2018 Peritonsi llar abscess; Note: Date Diagnosed : 12/19/2018 4:14 PM (J36) Not Available [facility] 02:56:17 Chronic tonsillit is 85343626 Active 2021 Chronic tonsillit is; Note: Date Diagnosed : 11/10/2021 3:33 PM (J35.01) Not Available [facility] 4 02:56:16 Recurrent acute streptoco ccal tonsillit is 12630646022 035916 Active 2021 Acute recurrent streptoco ccal tonsillit is; Note: Date Diagnosed : 07/20/2021 10:23 AM (J03.01) Not Available [facility] 4 02:56:17 Snoring 24869159 Active 2024 LUKE CORTEZ MD [address] [place] [address],[place] [address], [facility] [place], [address] , [facility] - [facility] 14:08:39 Hypertrop hy of tonsils 37152869 Active 2024 LUKE CORTEZ MD [address] [place] [address],[place] [address], [facility] [place], [address] , [facility] - [facility] [place] 14:08:44 Problem Notes None recorded. Procedures Surgical History Date Name Laterality Status Provider Name and Address Organization Details Recorded Time lumpectomy of breast completed LUKE POWER MD [address] [place] [address],[place] [address], [place], [address], [facility] - [facility] [place] 06/10/2024 14:05:51 incision of gallbladder completed Lynn Belcher [facility] [place] 06/10/2024 14:15:15 Imaging Results None recorded. Procedure Notes None recorded. Medical Equipment None Reported. Allergies Allergen ID Allergen Name Allergen Category Reaction Reaction Severity Criticality Documentation Date Start Date Code Code System Note Provider Name and Address Organization Details Recorded Time 572918 Eggs (edible) (substanc e) food,medi cation other Not available Not available 08/29/2023 94346 3004 SNOMED React ion: unkno wn, unspe cifie d;; Not Available [facility] 4 01:12:27 Medications Name Sig Start Date Stop Date Status Note LastModified by Organization Details LastModified Time losartan 50 mg tablet 07/20 completed Medicati on ID: [id number] D uration Value: 90 Brand Name: losartan Send Method: E-Prescr ibed Sub s Allowed: subs OK Speci al Instruct ion: TAKE 1 TABLET BY MOUTH EVERY DAY Medi cationGe nericNam e: losartan Not Available Not Available Not Available atorvasta tin 40 mg tablet TAKE 1 TABLET BY MOUTH EVERYDAY AT BEDTIME active Not Available Not Available No t Available anastrozo le 1 mg tablet active Medicati on ID: [id number] B rand Name: marisela ole Send Method: E-Prescr ibed Sub s Allowed: subs OK Speci al Instruct ion: TAKE 1 TABLET BY MOUTH EVERY DAY Medi cationGe nericNam e: anastroz ole Not Available Not Available Not Available clindamyc in HCl 300 mg capsule 1 capsule by mouth 12/29 completed Medicati on ID: [id number] D uration Value: 10 Prescri bed By Name: CALEB Rodriguez nd Name: clindamy bret HCl Send Method: E-Prescr ibed Sub s Allowed: subs OK Medic ationGen ericName : clindamy bret HCl Not Available Not Available Not Available azithromy bret 250 mg tablet TAKE 2 TABLETS BY MOUTH TODAY, THEN TAKE 1 TABLET DAILY FOR 4 DAYS DIRECTED active Not Available Not Available No t Available prednison e 20 mg tablet TAKE 1 TABLET BY MOUTH EVERY DAY active Not Available Not Available No t Available losartan 100 mg-hydroc hlorothia zide 25 mg tablet TAKE 1 TABLET BY MOUTH EVERY DAY active Not Available Not Available No t Available pravastat in 80 mg tablet TAKE 1 TABLET BY MOUTH EVERYDAY AT BEDTIME active Not Available Not Available No t Available metoprolo l tartrate 50 mg tablet TAKE 1 TABLET BY MOUTH TWICE A DAY active Not Available Not Available No t Available diclofena c sodium 75 mg tablet,de layed release TAKE 1 TABLET BY MOUTH TWICE A DAY active Not Available Not Available No t Available lorazepam 1 mg tablet TAKE 1 TABLET BY MOUTH TWICE A DAY NEEDED FOR ANXIETY active Not Available Not Available No t Available ibuprofen 600 mg tablet TAKE 1 TABLET BY MOUTH 3 TIMES A DAY NEEDED FOR FEVER OR PAIN active Not Available Not Available No t Available ibuprofen 100 mg/5 mL oral suspensio n 5 ml by mouth 2018 active Medicati on ID: [id number] D uration Value: 5 Prescri bed By Name: CALEB Rodriguez nd Name: ibuprofe n Send Method: E-Prescr ibed Sub s Allowed: subs OK Medic ationGen ericName : ibuprofe n Not Available Not Available Not Available albuterol sulfate HFA 90 mcg/actua tion aerosol inhaler INHALE 2 PUFFS BY MOUTH 4 TIMES A DAY NEEDED FOR ASTHMA active Not Available Not Available No t Available losartan 100 mg-hydroc hlorothia zide 12.5 mg tablet 07/20 completed Medicati on ID: [id number] B rand Name: losartan -hydroch lorothia zide Sen d Method: E-Prescr ibed Sub s Allowed: subs OK Speci al Instruct ion: TAKE 1 TABLET BY MOUTH EVERY DAY Medi cationGe nericNam e: losartan -hydroch lorothia zide Not Available Not Available Not Available hydrochlo rothiazid e 12.5 mg tablet active Medicati on ID: [id number] B rand Name: hydrochl orothiaz jose Send Method: E-Prescr ibed Sub s Allowed: subs OK Speci al Instruct ion: TAKE 1 TABLET BY MOUTH EVERY DAY Medi cationGe nericNam e: hydrochl orothiaz jose Not Available Not Available Not Available Vitals Date Recorded Body height Body mass index (BMI) Body weight Provider Name and Address Organization Details Last Updated DateTime 06/10/2024 165.1 cm 36.9 kg/m2 288387.51 g Antionette Galindo [place] - [facility] 06/10/2024 13:53:41 Social History None recorded. Functional Status None recorded. Mental Status None recorded. Family History Nothing Reported. Medical History Condition Response Cancer Y Anxiety Y Tonsil Infections Y GERD/Reflux Y High Cholesterol Y Gynecological HistoryNo gynecological history recorded. Obstetrics History GPAL:G 0 P 0 0 0 0 Past Encounters Encounter ID Performer Location Encounter Start Date Encounter Closed Date Diagnosis/Indication Diagnosis SNOMED-CT Code Diagnosis ICD10 Code Diagnosis Note [id number] LUKE CORTEZ MD [facility] [address] [place] [address] 06/10/2024 13:44:02 06/10/2024 15:22:07 Snoring 36306687 R06.83 Hypertroph y of tonsils 24259202 J35.1 Body mass index 30+ - obesity 471687914 Z68.36 Health Concerns Section Related Observation LastModified by Organization Detai ls LastModified Time None Recorded Concern Status LastModified by Organization Details LastModified Time None Recorded Advance Directives Directive None Recorded Payers Encounter Date Sequence Insurance Name Policy Number Policy Maradiaga Covered Member ID Maradiaga Member ID Guarantor Name 06/10/2024 1 [employer] (MEDICARE REPLACEMENT PPO) [id number] Larisa Dee [id number] Larisa Dee Notes Date Note Type Note Provider Name and Address Organization Details Recorded Time 06/10/2024 text/html Patient previous ly seen for peritonsillar abscesses. Fortunately she has had no issues since 2021. She has noted snoring and possible apnea. Scheduled for a polysomnogram in July. She has a history of polycythemia, elevated cholesterol, breast cancer and reflux. LUKE POWER MD [address] [place] [address], [place], [address], [facility] - [facility] 06/10/2024 14:10:24 OBGyn Episode No OBEpisode recorded.
== END 2024-07-30 10:00 | disposition home or self-care (01) ==
LOC: HO.BBR 09:59
PROVIDERS: Visit Provider Internal Medicine Medical Oncology
DX: D75.1 Secondary polycythemia (principal)
CPT/HCPCS: 36415; 85014; 85018; 85025; 99195

== ENCOUNTER 2024-08-14 09:51 | Outpatient (REF) | payer MEDICARE, SELFPAY ==
--- OUTSIDE RECORDS SUMMARY | 2024-08-14 10:46 | XMS_ITS | Data Portability ---
Author Organization [place] - [facility], Allergy Address [address] [address] Care Team Providers Care Booky Name Role Phone TIAGO SEAMAN Primary Care Provider [phone] Assessment No assessment recorded. Plan of Treatment [...] By Organization Details Last Modified Time 06/10/2024 [id number] Patient with hig h body mass index [...] Organization Details Recorded Time Peritonsi llar abscess 17754746 Active 2018 Peritonsi llar abscess; Note: Date Diagnosed : 12/19/2018 4:14 PM (J36) Not Available [facility] 02:56:17 Chronic tonsillit is 73716676 Active 2021 Chronic tonsillit is; Note: Date Diagnosed : 11/10/2021 3:33 PM (J35.01) Not Available [facility] 4 02:56:16 Recurrent acute streptoco ccal tonsillit is 95094804997 450488 Active 2021 Acute recurrent streptoco ccal tonsillit is; Note: Date Diagnosed : 07/20/2021 10:23 AM (J03.01) Not Available [facility] 4 02:56:17 Snoring 17639425 Active 2024 LUKE CORTEZ MD [address] [place] [address],[place] [address], [facility] [place], [address] , [facility] - [facility] 14:08:39 Hypertrop hy of tonsils 80644137 Active 2024 LUKE CORTEZ MD [address] [place] [address],[place] [address], [facility] [place], [address] , [facility] - [facility] [place] 14:08:44 Problem Notes None recorded. Procedures Surgical History Date Name Laterality Status Provider Name and Address Organization Details Recorded Time lumpectomy of breast completed LUKE POWER MD [address] [place] [address],[place] [address], [place], [address], [facility] - [facility] [place] 06/10/2024 14:05:51 incision of gallbladder completed Lynn Belcher [facility] [place] 06/10/2024 14:15:15 Imaging Results None recorded. Procedure Notes None recorded. Medical Equipment None Reported. Allergies Allergen ID Allergen Name Allergen Category Reaction Reaction Severity Criticality Documentation Date Start Date Code Code System Note Provider Name and Address Organization Details Recorded Time 833034 Eggs (edible) (substanc e) food,medi cation other Not available Not available 08/29/2023 58939 3004 SNOMED React ion: unkno wn, unspe cifie d;; Not Available [facility] 4 01:12:27 Medications Name Sig Start Date Stop Date Status Note LastModified by Organization Details LastModified Time losartan 50 mg tablet 07/20 completed Medicati on ID: [id number] D uration Value: 90 Brand Name: losartan [...] 1 mg tablet active Medicati on ID: [id number] B rand Name: marisela ole Send Method: E-Prescr ibed Sub s Allowed: subs OK Speci al Instruct ion: TAKE 1 TABLET BY MOUTH EVERY DAY Medi cationGe nericNam e: anastroz ole Not Available Not Available Not Available clindamyc in HCl 300 mg capsule 1 capsule by mouth 12/29 completed Medicati on ID: [id number] D uration Value: 10 Prescri bed By [...] by mouth 2018 active Medicati on ID: [id number] D uration Value: 5 Prescri bed By [...] mg tablet 07/20 completed Medicati on ID: [id number] B rand Name: losartan -hydroch lorothia zide Sen d Method: E-Prescr ibed Sub s Allowed: subs OK Speci al Instruct ion: TAKE 1 TABLET BY MOUTH EVERY DAY Medi cationGe nericNam e: losartan -hydroch lorothia zide Not Available Not Available Not Available hydrochlo rothiazid e 12.5 mg tablet active Medicati on ID: [id number] B rand Name: hydrochl orothiaz jose Send [...] Updated DateTime 06/10/2024 165.1 cm 36.9 kg/m2 509439.51 g Antionette Galindo [place] - [facility] 06/10/2024 13:53:41 Social History None recorded. Functional [...] SNOMED-CT Code Diagnosis ICD10 Code Diagnosis Note [id number] LUKE CORTEZ MD [facility] [address] [facility] [address] 06/10/2024 13:44:02 06/10/2024 15:22:07 Snoring 48404324 R06.83 Hypertroph y of tonsils 48175158 J35.1 Body mass index 30+ - obesity 852207764 Z68.36 Health Concerns Section Related Observation LastModified by Organization Detai ls LastModified Time None Recorded Concern Status LastModified by Organization Details LastModified Time None Recorded Advance Directives Directive None Recorded Payers Encounter Date Sequence Insurance Name Policy Number Policy Maradiaga Covered Member ID Maradiaga Member ID Guarantor Name 06/10/2024 1 [employer] (MEDICARE REPLACEMENT PPO) [id number] Larisa Dee [id number] Larisa Dee Notes Date Note Type Note Provider Name and Address Organization Details Recorded Time 06/10/2024 text/html Patient previous ly seen for peritonsillar abscesses. Fortunately she has had no issues since 2021. She has noted snoring and possible apnea. Scheduled for a polysomnogram in July. She has a history of polycythemia, elevated cholesterol, breast cancer and reflux. LUKE POWER MD [address] [place] [address], [place], [address], [facility] - [facility] 06/10/2024 14:10:24 OBGyn Episode No OBEpisode recorded.
[2024-08-14 13:01] LABS: MANUAL DIFF FLAG NO
[2024-08-14 13:16] LABS: Basophils Absolute Auto 0.1 X10*3/uL (0.0-0.2); Basophils Percent Auto 0.9 % (0-2); Eosinophils Absolute Auto 0.2 X10*3/uL (0.0-0.4); Hematocrit 40.2 % (37.0-47.0); Hemoglobin 13.1 g/dl (12.0-16.0); Imm Gran Abs Auto 0.02 X10*3/uL (0.00-0.03); Imm Gran Pct Auto 0.3 % (0.0-0.4); Lymphocytes Absolute Auto 1.7 X10*3/uL (1.2-4.9); Lymphocytes Percent Auto 22.1 % (20-40); Mean Corpuscular HGB Conc 32.6 g/dl (31.0-35.0); Mean Corpuscular Hemoglobin 33.1 pg (27.0-33.0); Mean Corpuscular Volume 101.5 fL (80.0-98.0); Mean Platelet Volume 9.8 fL (9.4-12.3); Monocytes Absolute Auto 0.8 X10*3/uL (0.1-1.2); Neutrophils Absolute Auto 4.9 x10*3/uL (2.0-8.3); Neutrophils Percent Auto 64.7 % (45-73); Platelet Count 335 X10*3/uL (160-400); Red Blood Count 3.96 X10*6/uL (4.20-5.50); Red Cell Distribution Width 15.2 % (11.0-16.0); White Blood Count 7.6 X10*3/uL (4.8-10.8)
[2024-08-14 13:30] LABS: Estimated Average Glucose 114 mg/dL; Hemoglobin A1C 126.7212 umol/L; Hemoglobin A1c % 5.6 % (<6.0); Total Hemoglobin (HGBA1C) 3360.6354 umol/L
[2024-08-14 13:52] LABS: Alanine Aminotransferase 20 U/L (0-31); Albumin Level 4.1 g/dL (3.5-5.0); Alkaline Phosphatase 73 U/L (39-117); Anion Gap 15 (12-20); Aspartate Amino Transferase 21 U/L (5-31); Bilirubin Total 0.6 mg/dL (0.0-1.0); Blood Urea Nitrogen 26 mg/dL (9-16); Calcium 9.3 mg/dL (8.4-10.2); Carbon Dioxide 25 mmol/L (22-29); Chloride 108 mmol/L (96-108); Cholesterol 141 mg/dL (<200); Estimated Glomerular Filt Rate 50; Glucose Random 105 mg/dL (60-115); HDL Cholesterol 42 mg/dL (>40); LDL Cholesterol Calculated 81 mg/dL (<100); Potassium 4.7 mmol/L (3.3-5.1); Sodium 143 mmol/L (135-145); Total Protein 7.5 g/dL (6.5-8.0); Triglycerides 91 mg/dL (<150)
[2024-08-14 14:05] LABS: Thyroid Stimulating Hormone 1.13 uIU/mL (0.32-4.0)
== END 2024-08-14 09:52 | disposition home or self-care (01) ==
LOC: HO.10HDL 09:51
PROVIDERS: Visit Provider Internal Medicine
DX: Z13.1 Encounter for screening for diabetes mellitus (principal); E66.01 Morbid (severe) obesity due to excess calories; E78.00 Pure hypercholesterolemia, unspecified; G47.33 Obstructive sleep apnea (adult) (pediatric); I10 Essential (primary) hypertension; R20.0 Anesthesia of skin; Z72.0 Tobacco use
CPT/HCPCS: 36415; 80053; 80061; 83036; 84443; 85025

== ENCOUNTER → 2024-09-11 09:23 | Outpatient (BNVA) | payer MEDICARE, SELFPAY | PROVIDERS: PCP Internal Medicine; Visit Provider Physician Assistant Surgical ==

== ENCOUNTER 2024-09-30 08:08 | Outpatient (AMB) | payer MEDICARE, SELFPAY ==
--- NOTE | 2024-09-30 08:05 | MHC.OFFVISWM ---
VS Expanded 09/30/24 08:34 Height 5 ft 5 in Weight 249 lb 2 oz BMI 41.5 Body Fat % 48.9 Body Fat Mass 122 Fat Free Mass 90 Visceral Fat Rating 17 Body Water % 36.1 Body Water Mass 90 Basal Metabolic Rate/Score 1,799 Intake Visit Reasons: [employer] [facility] Allergies environmental allergies Allergy (Unknown, Verified 09/30/24 08:05) Unknown egg [Egg] Adverse Reaction (Intermediate, Verified 09/30/24 08:05) Gastrointestinal Upset Medication List - Last Reconciled 09/30/24 by David Santana MD cholecalciferol (vitamin D3) 50 mcg PO DAILY cyanocobalamin (vitamin B-12) (Vitamin B-12) 1,000 mcg PO DAILY ibuprofen 600 mg PO TID PRN lorazepam 1 mg PO DAILY PRN losartan-hydrochlorothiazide 100-25 mg 1 tab PO DAILY pravastatin 1 tab PO DAILY HPI HPI [employer] [facility]: Details: Start time: 8.00am, End time: 8.54am ?I spent 49 minutes speaking with the patient on the phone plus an additional 5 minutes reviewing and updating records for a total of 54 minutes HPI Comments Details: Previous weight loss efforts: self diets and exercise Wakes up: 7am, Sleeps: 10pm Breakfast: 8am (yogurt, bread) Lunch: skips Dinner: 6.30pm (chicken, meatloaf) Snacks: 1.30pm (cheese, peanut butter) Exercise: stationary bike at home Beverages: Coffee: (1 cup/d with sugar and cream), tea: none, soda: none, juice: rarely, ETOH: 2 shots of Vodka with juice PFSH Medical History (Updated 09/30/24 @ 08:09 by David Santana MD) GERD (gastroesophageal reflux disease) Anxiety Sleep apnea treated with continuous positive airway pressure (CPAP) Morbid obesity Polycythemia Orthostatic dizziness Hypercholesterolemia Hypertension History of left breast cancer Surgical History (Updated 09/11/24 @ 10:02 by Lani Maloney CMA) Hx of colonoscopy Hx of bladder endoscopy Hx laparoscopic cholecystectomy (09/20/22) History of lymph node excision History of lumpectomy of left breast Family History (Updated 09/11/24 @ 10:05 by Lani Maloney CMA) Mother Hypertension High cholesterol Angina at rest Father Hypertension High cholesterol Alcoholic Son No problems noted. Son Hx of sleep apnea Social History (Updated 09/11/24 @ 10:06 by Lani Maloney CMA) Household Members: None Housing: House Are you a primary managed care provider to a significant other at home: No Do you presently have visiting nurse or other home services: No Alcohol intake: current Alcohol intake frequency: a few times a month Patient Tobacco Use Status: Current someday Tobacco user Tobacco use type: Cigarette Cigarettes Per Day: 1 Years Smoked: 40 Second Hand Smoke Exposure: No service: No Current occupational status: employed Telehealth Telehealth Telehealth Platform: Telephone Location of provider rendering services: practice address Location of patient: address on file Patient Identification confirmed using: Name, : Yes Telehealth method: voice only Patient verbally consented to treatment: Yes Patient verbally consented to billing insurance company: Yes Patient informed of any privacy concerns related to visit: Yes Minutes spent on Phone/Video with Pt.: 54 Assessment & Plan Assessment & Plan (1) Morbid obesity: Code(s): E66.01 - Morbid (severe) obesity due to excess calories Category: Medical Plan: 1. We discussed in detail the available therapeutic options: 1) our lifestyle intervention program that has an average weight loss of 10% in 3 months.? 2) Weight loss medications. We also discussed that you can self pay for the first 3 months and the cost is $399 for the first month and $499 for any other month thereafter. 3) We also discussed about the lap sleeve gastrectomy. I emphasized the importance of close follow-up, adherence to instructions and good communication. The surgery does not replace the need to change your lifestlyle which is the cause of the obesity problem. The surgery provides the motivation to try again to change your lifestyle, it reduces the appetite and make the transition to a better lifestyle easier and doubles the amount of weight you would lose compared to doing the lifestyle change without the surgery. You will need to be on a liquid diet with protein shakes for 2 weeks before surgery to maximize weight loss and boost your nutritional status to recover better from surgery and also for the first two weeks after surgery to let the stomach heal before we introduce other foods. After the first 2 weeks we will introduce protein bars and soft foods like scrambled eggs, cottage cheese and yogurt and after the 6th week will introduce meat, fish and cooked vegetables in small amounts. Over time you should be able to eat everything in small amounts. Side effects like nausea, vomiting, heartburn or abdominal pain are not common in the practice unless you are not following in the practice. This operation requires lifetime commitment to following in our practice and communication with me. You will much less weight and experience side effects if you don?t communicate or not following in the practice. Complications are rare and in our practice is about 1/10 of the national average. The patient prefers to try the anti-obesity medications. 2. Nutritional counseling. Start with one CELEBRATE REBUILD protein (buy at hospital's [employer] [facility]) shake (ONE scoop in 8oz low fat unsweetened almond milk each) at 8am-10am, one protein bar (CELEBRATE protein bars, buy at [facility] [employer] [facility]) at 11am-2pm, one CELEBRATE REBUILD protein shake (ONE scoop in 8oz low fat unsweetened almond milk each) at 3-5pm, dinner at 6pm (8 forks of protein and 8 forks of salad/vegetables) AND one more protein bar after dinner at 8pm-10pm. So you do 2 protein shakes, 2 protein bars and one meal per day. Meal to include lean meat (beef, fish, pork, turkey, chicken), or togolese yogurt, or egg whites, or beans with a salad with olive oil and fruits (berries, pears, apples, kiwi). Avoid salt, breads, potatoes, rice, pasta, desserts. 3. Start the Zepbound when you get your body composition scale once a week. We discussed the potential side effects of Zepbound such as nausea, vomiting, abdominal pain, diarrhea and constipation and you will need to contact me if any of these symptoms occur or for any other new symptom you may experience 4. Each shake would be drunk slowly, like coffee in a period of 2 hours. 6. Cut each bar in 4 pieces and eat each piece in 30min ?to make each bar last 2 hours. 6. I emphasized the importance of measuring accurately the food portion and measure it when serving the food in plate 7. The meal portions include 8 full-size forks of meat and 8 full-size forks of salad. You always eat the meat portion but you can replace up to 4 forks for salad/vegetables with rice, potatoes or pasta, or a fruit ?if you like. The less you do it the better weight loss will be. 8. One full-size fork is what it can be scooped on the fork without falling aside and not what can be bit with the fork. Use regular forks like those you find in a typical restaurant. 9.? Please send me weight measurements as soon as possible and then once a week. Always include your diet and exercise plan. 10. tart stationary bike at a resistance level of 4.0 Increase level by 1.0 every 3 min to a max level of 10.0. Stay at this level for 3 min and then return to level 4.0 and repeat same steps until 300 calories are burned. Velocity target is 12mph and heart rate is 145 bpm. Goal is to burn 2000 calories per week on exercise 11. Goal to lose at least 10% of your weight, which is about 25lbs. Minimum weight goal: 225lbs 12. Please follow the diet plan exactly without any change. If you don't like something about the plan or you feel hungry you need to communicate with me so I can help you revise the plan. You should not change the plan yourself Medications: New tirzepatide (weight loss) (Zepbound) 2.5 mg (0.5 mL) subcut QWEEK 4 weeks 2 mL 0RF
--- OUTSIDE RECORDS SUMMARY | 2024-09-30 08:16 | XMS_ITS ---
Author Organization Rajinder Guerrero III, MD Address [address] [place] [place] [address] Care Team Providers Care Oil Expeller Name Role Phone Roderick TAPIA, [facility] Primary Care Provider Rajinder Camargo Unavailable [phone] Allergies Allergen (clinical drug ingredient) Drug/Non Drug [...] W/U Status Risk Notes Problem Polycythemia vera (045970063) Polycythemia vera (D45) Active confirmed Her polycythemia [...] Date Provider Diagnosis Rajinder Guerrero III, MD [address] [place] [address] [place] [address] 09/22/2023 Rajinder Guerrero Iron deficiency E61. 1 [...] OV Provider Name:Rajinder Rodriguesne, 10/17/2024 09:15:00 AM, [address] [place] [address], [address], [place], [address], Progress Notes * CATRACHITOLarisa CLEMENTSDOB:1955 (68 yo F)Acc No.[id number]:09/22/2023 Progress Notes Patient:?Larisa Dee Provider:?Rajinder Guerrero MD :1955???Age:68 Y???Sex:Female D ate:09/22/2023 Address:[address] [place], [place] [phone] Pcp:Deandra Vaughn MD Subjective: * Chief Complaints: [...] Tobacco Non-User?Ex-cigarette smoker ???She was born in [place] and is . She has 2 sons and works at [employer] in [place]. * Medications:?TakingLORazepam 1 MG Tablet 1 tablet [...] - 09/20/2023) (Collection Date - 09/20/2023)? ValueReference Range?[id number] - ng/mL * Examination: ???General Examination: ?GENERAL [...] Provider:?Rajinder Guerrero MD Date:?10/2023 Generated for Cintiai ng/Baljit/eTransmitting on:?09/30/2024 08:16 AM EDT History and Physical Notes * [...]
[2024-09-30 08:34] VITALS: BMI 41.5
== END 2024-09-30 08:55 | disposition home or self-care (01) ==
LOC: HO.HBS 08:08
PROVIDERS: PCP Internal Medicine; Visit Provider Surgery
DX: E66.01 Morbid (severe) obesity due to excess calories (principal)
CPT/HCPCS: 99204

== ENCOUNTER 2024-10-01 09:58 | Outpatient (REF) | payer MEDICARE, SELFPAY ==
[2024-10-01 10:11] LABS: Basophils Percent Auto 0.4 % (0-2); Eosinophils Absolute Auto 0.2 X10*3/uL (0.0-0.4); Eosinophils Percent Auto 1.8 % (0-4); Hematocrit 35.7 % (37.0-47.0); Hemoglobin 12.1 g/dl (12.0-16.0); Imm Gran Abs Auto 0.04 X10*3/uL (0.00-0.03); Imm Gran Pct Auto 0.5 % (0.0-0.4); Lymphocytes Absolute Auto 1.2 X10*3/uL (1.2-4.9); Lymphocytes Percent Auto 13.8 % (20-40); MANUAL DIFF FLAG NO; Mean Corpuscular HGB Conc 33.9 g/dl (31.0-35.0); Mean Corpuscular Hemoglobin 34.6 pg (27.0-33.0); Mean Platelet Volume 9.6 fL (9.4-12.3); Monocytes Absolute Auto 0.8 X10*3/uL (0.1-1.2); Monocytes Percent Auto 9.1 % (2-11); Neutrophils Absolute Auto 6.4 x10*3/uL (2.0-8.3); Neutrophils Percent Auto 74.4 % (45-73); Platelet Count 311 X10*3/uL (160-400); Red Cell Distribution Width 14.1 % (11.0-16.0); White Blood Count 8.6 X10*3/uL (4.8-10.8)
--- OUTSIDE RECORDS SUMMARY | 2024-10-01 11:17 | XMS_ITS ---
Author Organization Rajinder Guerrero III, MD Address [address] [place] [address] Care Team Providers Care Academic Support Assistant Name Role Phone Roderick TAPIA, [facility] Primary Care Provider Rajinder Camargo Unavailable [phone] Allergies Allergen (clinical drug ingredient) Drug/Non Drug [...] W/U Status Risk Notes Problem Polycythemia vera (842101296) Polycythemia vera (D45) Active confirmed Her polycythemia [...] Provider Diagnosis Rajinder Guerrero III, MD [address] [place] [address] [place] [address] 09/22/2023 Rajinder Guerrero Iron deficiency E61. 1 [...] her to the smoking cessation program at [facility]. 09/22/2023 Polycythemia vera (ICD-10 - D45) [...] OV Provider Name:Rajinder Rodriguesne, 10/17/2024 09:15:00 AM, [address] [place] [address], [address], [place], [address], Progress Notes * CATRACHITOLarisa CLEMENTSDOB:1955 (68 yo F)Acc No.[id number]:09/22/2023 Progress Notes Patient:?Larisa Dee Provider:?Rajinder Guerrero MD :1955???Age:68 Y???Sex:Female D ate:09/22/2023 Address:[address] [place], [place] [phone] Pcp:Deandra Vaughn MD Subjective: * Chief Complaints: [...] Tobacco Non-User?Ex-cigarette smoker ???She was born in [place] and is . She has 2 sons and works at [employer] in [place]. * Medications:?TakingLORazepam 1 MG Tablet 1 tablet [...] - 09/20/2023) (Collection Date - 09/20/2023)? ValueReference Range?[id number] - ng/mL * Examination: ???General Examination: ?GENERAL [...] her to the smoking cessation program at [facility]. 4.?Polycythemia vera - D45, Her polycythemia [...] Guerrero MD Date:?10/2023 Generated for Cintiai jolanta/Baljit/eTransmitting on:?10/01/2024 11:17 AM EDT History and Physical Notes * [...]
== END 2024-10-01 09:59 | disposition home or self-care (01) ==
LOC: HO.BBR 09:58
PROVIDERS: PCP Internal Medicine; Visit Provider Internal Medicine Medical Oncology
DX: D75.1 Secondary polycythemia (principal)
CPT/HCPCS: 36415; 85014; 85018; 85025; 99195

== ENCOUNTER → 2024-10-02 13:29 | Outpatient (BNVA) | payer MEDICARE, SELFPAY | PROVIDERS: PCP Internal Medicine; Visit Provider Physician Assistant Surgical ==

== ENCOUNTER 2024-12-02 10:01 | Outpatient (REF) | payer MEDICARE, SELFPAY ==
--- OUTSIDE RECORDS SUMMARY | 2024-04-18 05:00 | XMS_ITS ---
Author Organization Rajinder Guerrero III, MD Address [address] [place] [address] Care Team Providers Care Supervisor Turkey Farm Name Role Phone Roderick TAPIA, [facility] Primary Care Provider Rajinder Camargo Unavailable [phone] Allergies Allergen (clinical drug ingredient) Drug/Non Drug [...] Provider Diagnosis Rajinder Guerrero III, MD [address] [place] [address] [place] [address] 04/18/2024 Rajinder Guerrero Iron deficiency E61. 1 [...] her to the smoking cessation program at [facility]. 04/18/2024 Raynaud's syndrome without gangrene (ICD-10 [...] follow-up Provider Name:Rajinder Guerrero, 02/21/2025 09:00:00 AM, [address] [place] [address], [address], [address], Progress Notes * LUIZ LarisaDOB:1955 (69 yo F)Acc No.[id number]:04/18/2024 Progress Notes Patient: Larisa BATES Provider: Oliva Guerrero MD :1955 A ge:69 Y S ex:Female Date:04/18/2024 Address:[address] [place], [place] [phone] Pcp:Deandra Vaughn MD Subjective: * Chief Complaints: [...] N egative S he was born in [place] and is . She has 2 sons and works at [employer] in [place]. Smoking: Occasional, Exercise: Uses an exercise bike. [...] her to the smoking cessation program at [facility]. 5 . R aynaud's syndrome without [...] 04/18/2024 Generated for Jannie stover/Baljit/Annalise on: 0 12/02/2024 10:54 AM EDT History and Physical Notes * [...]
[2024-12-02 10:17] LABS: MANUAL DIFF FLAG NO
[2024-12-02 10:18] LABS: Hematocrit 36.0 % (37.0-47.0); Hemoglobin 12.1 g/dl (12.0-16.0); Imm Gran Abs Auto 0.03 X10*3/uL (0.00-0.03); Imm Gran Pct Auto 0.4 % (0.0-0.4); Lymphocytes Absolute Auto 1.1 X10*3/uL (1.2-4.9); Mean Corpuscular HGB Conc 33.6 g/dl (31.0-35.0); Mean Corpuscular Hemoglobin 33.7 pg (27.0-33.0); Mean Corpuscular Volume 100.3 fL (80.0-98.0); NRBC Abs Auto 0.000 X10*3/uL (0.0-0.012); NRBC Pct Auto 0.0 /100WBC (0.0-0.2); Platelet Count 310 X10*3/uL (160-400); Red Blood Count 3.59 X10*6/uL (4.20-5.50); White Blood Count 8.0 X10*3/uL (4.8-10.8)
--- OUTSIDE RECORDS SUMMARY | 2024-12-02 10:55 | XMS_ITS | Patient Health Record ---
Author Organization [facility] Address [address] [place] [address] Care Team Providers Care Side Door Worker Name Role Phone Deandra Vaughn Primary Care [...] Problem Status W/U Status Risk Notes Problem 856956234 Colon cancer screening (Z12.11) Active confirmed Problem 769654014 Bloating (R14.0) Active confirmed Problem GERD (gastroesophageal reflux disease) (K21.9) Active confirmed Problem 482950098 Gastroesophageal reflux disease, unspecified whether esophagitis present (K21.9) Active confirmed Plan Of Treatment Future Test Test Name Order Date UPPER GI ENDOSCOPY 01/04/2023 COLONOSCOPY 01/04/2023 Insurance Providers Payer Name Payer Address Payer Phone Subscriber Number Group Number Insured Name Patient Relationship to Insured Coverage Start Date Coverage End Date [employer] (No Referra l) [address] [address] [place] [address] [id number] PIYUSH DEE Self - patient is the insured Medical (General) History Medical History History ICD Code Hypertension Hyperlipidemia Left breast cancer, XRT and hormonal the rapy Polycythemia Anxiety Recent seizures, MRI of the brain pendin g Colonoscopy 07/25/08, hyperplastic polyps x2, ten-year followup Surgical History Surgery Date(Month/Year) Left breast cancer, lumpectomy/axillary node dissection 08/02 Cholecystectomy 10/07
== END 2024-12-02 10:02 | disposition home or self-care (01) ==
LOC: HO.BBR 10:01
PROVIDERS: PCP Internal Medicine; Visit Provider Internal Medicine Medical Oncology
DX: D75.1 Secondary polycythemia (principal)
CPT/HCPCS: 36415; 85018; 85025; 99195

== ENCOUNTER 2024-12-11 08:00 | Outpatient (AMB) | payer MEDICARE, SELFPAY ==
--- OUTSIDE RECORDS SUMMARY | 2024-04-18 05:00 | XMS_ITS ---
Author Organization Rajinder Guerrero III, MD Address [address] [place] [address] Care Team Providers Care Underground Mine Machinery Mechanic Name Role Phone Roderick TAPIA, [facility] Primary Care Provider Rajinder Camargo Unavailable [phone] Allergies Allergen (clinical drug ingredient) Drug/Non Drug [...] 25 Blood pressure diastolic 78 mm Hg 01/02/2 025 Heart Rate 80 /min 04/18/2024 Height 65 in 04/18/2024 Weight 243 lbs 04/18/2024 BMI 40.43 kg/m2 04/18/2024 Encounters Encounter Location Date Provider Diagnosis Rajinder Guerrero III, MD [address] [place] [address] [place] [address] 04/18/2024 Rajinder Guerrero Iron deficiency E61. 1 [...] smoking cessation program at [facility]. 04/18/2024 Raynaud's syndrome without gangrene (ICD-10 [...] ov review labs, Routine follow-up Provider Name:Rajinder Guerrero, 02/21/2025 09:00:00 AM, [address] [place] [address], [address], [address], Progress Notes * LUIZ LarisaDOB:1955 (69 yo F)Acc No.[id number]:04/18/2024 Progress Notes Patient: Larisa BATES Provider: Oliva Guerrero MD :1955 A ge:69 Y S ex:Female Date:04/18/2024 Address:[address] [place], [place] [phone] Pcp:Deandra Vaughn MD Subjective: * Chief Complaints: [...] N egative S he was born in [place] and is . She has 2 sons and works at [employer] in [place]. Smoking: Occasional, Exercise: Uses an exercise bike. [...] smoking cessation program at [facility]. 5 . R aynaud's syndrome without [...] 0 04/18/2024 Generated for Jannie stover/Baljit/Annalise on: 0 12/11/2024 08:37 AM EDT History and Physical Notes * [...]
--- OUTSIDE RECORDS SUMMARY | 2024-10-17 05:15 | XMS_ITS ---
Author Organization Rajinder Guerrero III, MD Address [address] [place] [address] Care Team Providers Care Cashier Credit Name Role Phone Roderick TAPIA, [facility] Primary Care Provider Rajinder Camargo Unavailable [phone] Allergies Allergen (clinical drug ingredient) Drug/Non Drug [...] Date Provider Diagnosis Rajinder Guerrero III, MD [address] [place] [address] [place] [address] 10/17/2024 Rajinder Guerrero Iron deficiency E61. 1 [...] her to the smoking cessation program at [facility]. 10/17/2024 Malignant neoplasm of upper-outer quadrant of [...] OV Provider Name:Rajinder Rodriguesne, 02/21/2025 09:00:00 AM, [address] [place] [address] SATYA CONNOLLY, [place], [address], Progress Notes * Larisa DEEDOB:1955 (69 yo F)Acc No.[id number]:10/17/2024 Progress Notes Patient: Larisa BATES Provider: Oliva Guerrero MD :1955 A ge:69 Y S ex:Female Date:10/17/2024 Address:[address] [place] [address] FREDI LISS [id number] Pcp:Deandra Vaughn MD Subjective: * Chief Complaints: [...] urrent smoker S he was born in [place] and is . She has 2 sons and works at [employer] in [place]. Smoking: Occasional, Exercise: Uses an exercise bike. [...] her to the smoking cessation program at [facility]. 4 . M alignant neoplasm of upper-outer [...] 10/17/2024 Generated for Jannie stover/Baljit/Katerineitting on: 0 12/11/2024 08:37 AM EDT History [...]
--- OUTSIDE RECORDS SUMMARY | 2024-12-10 12:32 | XMS_ITS ---
Author Organization Rajinder Guerrero III, MD Address [address] [place] [address] [address] [facility] [place] [address] Care Team Providers Care Woods Rider Name Role Phone Roderick TAPIA, [facility] Primary Care Provider Rajinder Camargo Unavailable [phone] REASON FOR VISIT FYI only Social History Sex Assigned At : Social History Observation Description Sex Assigned At Female Encounters Encounter Location Date Provider Diagnosis Rajinder Guerrero III, MD [address] [place] [address] [address] [facility] [place] [address] 12/10/2024 Rajinder Guerrero Plan Of Treatment Next Appt Details Provider Name:Rajinder Guerrero, 02/21/2025 09:00:00 AM, [address] [place] [address] SATYA CONNOLLY, [place], [address], Progress Notes * Larisa DEEDOB:1955 (69 yo F)Acc No.[id number]:12/10/2024 Patient: Jj RAFIQ Larisa :1955 A ge:69 Y S ex:Female Address:[address] [place], [place] [address] [address] * * Date:
--- NOTE | 2024-12-11 08:00 | MHC.WMTHER ---
Intake Intake Visit Reasons: TV BH Intake Allergies environmental allergies Allergy (Unknown, Verified 10/08/24 11:31) Unknown egg (Egg) Adverse Reaction (Intermediate, Verified 10/08/24 11:31) Gastrointestinal Upset PFSH Medical History (Updated 09/30/24 @ 08:09 by David Santana MD) GERD (gastroesophageal reflux disease) Anxiety Sleep apnea treated with continuous positive airway pressure (CPAP) Morbid obesity Polycythemia Orthostatic dizziness Hypercholesterolemia Hypertension History of left breast cancer Surgical History (Updated 09/11/24 @ 10:02 by Lani Maloney CMA) Hx of colonoscopy Hx of bladder endoscopy Hx laparoscopic cholecystectomy (09/20/22) History of lymph node excision History of lumpectomy of left breast Family History (Updated 09/11/24 @ 10:05 by Lani Maloney CMA) Mother Hypertension High cholesterol Angina at rest Father Hypertension High cholesterol Alcoholic Son No problems noted. Son Hx of sleep apnea Social History (Updated 09/11/24 @ 10:06 by Lani Maloney CMA) Household Members: None Housing: House Are you a primary senior care provider to a significant other at home: No Do you presently have visiting nurse or other home services: No Alcohol intake: current Alcohol intake frequency: a few times a month Patient Tobacco Use Status: Current someday Tobacco user Tobacco use type: Cigarette Cigarettes Per Day: 1 Years Smoked: 40 Second Hand Smoke Exposure: No service: No Current occupational status: employed Behavioral Health Assessment Weight Management Therapy Therapy Notes Details The patient is a 69-year-old female presenting for a behavioral health assessment as part of her preoperative evaluation for a surgical weight loss program. She was referred by her primary care provider. The patient reports a history of severe back issues that began approximately seven years ago, following her treatment for breast cancer. Since that time, she has experienced a weight gain of at least 75 pounds. Presenting Concerns Referral Source WMP-Provider. Reason for referral Completion of behavioral health assessment as part of process for weight-loss surgery. Precipitating Event Obesity Living Situation Current Living Situation Own At risk of losing current housing? No Satisfied with current living situation? Yes Comments PT lives with her . Food/Weight/Diet Expectations of change PT started the program on 09/30/2024 at 249 lbs, and the initial goal was to lose at least 10% of her weight, which is approximately 25lbs. Before surgery, weight goal: 225lbs. Her most recent weight as of 12/04/2024 was 239Lbs Patient wants to get down to at least 175Lbs before surgery. She also wants to improve her health and physical condition. PT is implementing the following: Current meal plan: 2 protein shakes, 2 protein bars, and one meal per day. Exercise plan: stationary bike. Scale: yes. Communication w/ provider: yes, Wednesdays. History/Relationship with food She was never used to having 3 meals a day, would eat when hungry. As an adult, she could go 2-3 days without formal meals as she was not hungry. During these times, she was thin and at a healthy weight. PT reported she noticed a pattern of stress eating while working after she developed medical issues. in the last 10 years of work, she was more steady with her meals, having at least breakfast and dinner every day, but since she worked 10Hr at day, she noticed she was snacking more. Example of meals before starting the program: Breakfast: 8 am (Coffee w/ a Cambodian or blueberry pancakes, she likes something sweet for breakfast) Lunch: skips or a piece of cheese. Dinner: 6.30 pm (chicken/steak/meatloaf, with salad or a vegetable and a starch) Snacks: 1.30 pm (cheese, peanut butter) Beverages: Coffee: (1 cup/d with 2 tsp of sugar and cream). Tea: none. Soda: none. Juice: 1 cup at day of sugar free apple juice or orange juice. ETOH: 2 drinks at day, 1 shots of Vodka with juice. History/Relationship with weight PT reported she was at a healthy weight since childhood, and was a very thin person. Started gaining weight around age 59. Then, 7 years ago, she had breast cancer, and then started having back issues, which contributed to her becoming less active due to physical challenges. In the last 10 years, the patient's Lowest weight was 145Lbs and the highest 253Lbs. History/Relationship with dieting Exercise and self-diet. Social History Family history and relationship PT is , she has 2 sons from a previous relationship, and her has 3 children. They have 5 grandchildren. Both parents and most uncles and aunts have passed. 2 Brothers are also , and she has 4 brothers alive. PT reports she has good family relationships overall. 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 Developmental history and status WNL. Social support , close friends, 1 pf her brothers. Community support None. Congregation/Spirituality Baptised as a scientologist, but she raised her children as Catholics. She considers Mu-Ism. Cultural/Ethnic information . Legal Involvement and History Current or historical involvement with the legal system? None reported. Education Highest grade completed 2 years of college. Preferred learning style Auditory and Visual Currently enrolled in educational program? No Interested in further educational program? No Educational Interests/Skills Healthcare. 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 Employment Employment Status Retired (Retired in April/2024.) Wants help to find employment? No Trauma/Abuse History History of trauma? Yes (LUKE score: 2) Questionnaires PHQ-9 Over the last 2 weeks, how often have you been bothered by any of the following problems? 1. Little interest or pleasure in doing things: not at all 2. Feeling down, depressed, or hopeless: not at all 3. Trouble falling or staying asleep, or sleeping too much: several days 4. Feeling tired or having little energy: several days 5. Poor appetite or overeating: not at all 6. Feeling bad about yourself - or that you are a failure or have let yourself or your family down: not at all 7. Trouble concentrating on things, such as reading the newspaper or watching television: not at all 8. Moving or speaking so slowly that other people could have noticed. Or the opposite - being so fidgety or restless that you have been moving around a lot more than usual: not at all 9. Thoughts that you would be better off or of hurting yourself in some way: not at all Total score: 2 Depression Screening Interpretation: Negative (From new PT pack) Depression Screening Done: Yes Source: Developed by Drs. Rajinder Mooney, Oksana Tolbert, Nicholas Vargas and colleagues, with an educational fransisco from [employer]. Binge Eating Scale Group 1 A. I don't feel self-conscious about my wt. or body size when I'm with others. B. I feel concerned about how I look to others, but it normally does not make me fell disappointed with myself C. I do get self-conscious about my appearance and wt. which makes me feel disappointed in myself. D. I feel very self-conscious about my wt. and frequently I feel intense shame and disgust for myself. I try to avoid social contacts because of my self-consciousness. Response Group 1: C Group 2 A. I don't have any difficulty eating slowly in the proper manner. B. Although I seem to gobble down foods, I don't end up feeling stuffed because of eating to much. C. At times, I tend to eat quickly and then, I feel uncomfortably full afterwards. D. I have the habit of bolting down my food, without really chewing it. When this happens I usually feel uncomfortably stuffed because I've eaten to much. Response Group 2: C Group 3 A. I feel capable to control my eating urges when I want to. B. I feel like I have failed to control my eating more than the average person. C. I feel utterly helpless when it comes to feeling in control of my eating urges. D. Because I feel so helpless about controlling my eating I have become very desperate about trying to get control. Response Group 3: B Group 4 A. I don't have the habit of eating when I'm bored. B. I sometimes eat when I'm bored, but often I'm able to get busy and get my mind off food. C. I have a regular habit of eating when I'm bored, but occasionally, I can use some other activity to get my mind off eating. D. I have a strong habit of eating when I'm bored. Nothing seems to help me breath the habit. Response Group 4: C Group 5 A. I'm usually physically hungry when I eat something. B. Occasionally, I eat something on impulse even though I really am not hungry. C. I have the regular habit of eating foods, that I might not really enjoy, to satisfy a hungry feeling even though physically, I don't need the food. D. Although I'm not physically hungry, I get a hungry feeling in my mouth that only seems to be satisfied when I eat a food, like sandwich, that fills my mouth. Sometimes, when I eat the food to satisfy my mouth hunger, I then spit the food out so I won't gain weight. Response Group 5: B Group 6 A. I don't feel any guilt or self-hate after I overeat. B. After I overeat, occasionally I feel guilt or self-hate. C. Almost all the time I experience strong guilt or self-hate after I overeat. Response Group 6: B Group 7 A. I don't lose total control of my eating when dieting even after periods when I overeat. B. Sometimes when I eat a forbidden food on a diet, I feel like I blew it and eat even more. C. Frequently, I have the habit of saying to myself, I've blown it now, why not go all the way, when I overeat on a diet. When that happens I eat more. D. I have a regular habit of starting a strict diets for myself but I break the diets by going on an eating binge. My life seems to be either a feast or famine. Response Group 7: A Group 8 A. I rarely eat so much food that I feel uncomfortably stuffed afterwards. B. Usually about once a month, I each such a quantity of food, I end up feeling very stuffed. C. I have regular periods during the month when I eat large amounts of food, either at mealtime or at snacks. D. I eat so much food that I regularly feel quite uncomfortable after eating and sometimes a bit nauseous. Response Group 8: B Group 9 A. My level of calorie intake does not go up very high or go down very low on a regular basis. B. Sometimes after I overeat, I will try to reduce my caloric intake to almost nothing to compensate for the excess calories I've eaten. C. I have a regular habit of overeating during the night. It seems that my routine is not to be hungry in the morning but overeat in the evening. D. In my adult years, I have had week-long periods where I practically starve myself. This follows periods when I overeat. It seems I live a life of either feast or famine. Response Group 9: B Group 10 A. I usually am able to stop eating when I want to. I know when enough is enough. B. Every so often, I experience a compulsion to eat which I can't seem to control. C. Frequently, I experience strong urges to eat which I seem unable to control, but at other times I can control my eating urges. D. I feel incapable of controlling urges to eat. I have a fear of not being able to stop eating voluntarily. Response Group 10: B Group 11 A. I don't have any problem stopping eating when I feel full. B. I usually can stop eating when I feel full but occasionally overeat leaving me feeling uncomfortably stuffed. C. I have a problem stopping eating once I start and usually I feel uncomfortably stuffed after I eat a meal. D. Because I have a problem not being able to stop eating when I want, I sometimes have to induce vomiting to relieve my stuffed feeling. Response Group 11: B Group 12 A. I seem to eat just as much when I'm with others, Family social gatherings as when I'm by myself. B. Sometimes, when I'm with other persons, I don't eat as much as I want to eat because I'm self-conscious about my eating. C. Frequently, I eat only a small amount of food when others are present, because I'm very embarrassed about my eating. D. I feel so ashamed about overeating that I pick times to overeat when I know no one will see me. I feel like a closet eater. Response Group 12: A Group 13 A. I eat three meals a day with only an occasional between meal snack. B. I eat 3 meals a day, but I also normally snack between meals. C. When I am snacking heavily, I get in the habit of skipping regular meals. D. There are regular periods when I seem to be continually eating, with no planned meals. Response Group 13: C Group 14 A. I don't think much about trying to control unwanted eating urges. B. At least some of the time, I feel my thoughts are pre-occupied with trying to control my eating urges. C. I feel that frequently I spend much time thinking about how much I ate or about trying not to eat anymore. D. It seems to me that most of my waking hours are pre-occupied by thoughts about eating or not eating. I feel like I'm constantly struggling not to eat. Response Group 14: A Group 15 A. I don't think about food a great deal. B. I have strong craving for food but they last only for brief periods of time. C. I have days when I can't seem to think about anything else but food. D. Most of my days seem to be pre-occupied with thoughts about food. I feel like I live to eat. Response Group 15: B Group 16 A. I usually know whether or not I'm physically hungry. I take the right portion of food to satisfy me. B. Occasionally, I feel uncertain about knowing whether or not I'm physically hungry. A these times it's hard to know how much food I should take to satisfy me. C. Even though I might know how many calories I should eat, I don't have any idea what is a normal amount of food for me. Response Group 16: C Binge Eating Score: 18 Score less than 17 Minimal Risk Score between 18-26 Moderate Risk Score between 27-46 High Risk Assessment & Plan Assessment & Plan (1) Anxiety: Code(s): F41.9 - Anxiety disorder, unspecified (2) Pre-bariatric surgery psychological evaluation: Code(s): Z71.89 - Other specified counseling Plan The patient was not cleared today as the assessment was not completed. The patient will return in 2-4 weeks to continue the evaluation. Next appointment: 12/31/2024 at 11am, Telehealth Telehealth Telehealth Platform: [facility] Location of provider rendering services: other (Home office. [place], [place]) Location of patient: address on file Patient Identification confirmed using: Name, : Yes Telehealth method: voice only Patient verbally consented to treatment: Yes Patient verbally consented to billing insurance company: Yes Patient informed of any privacy concerns related to visit: Yes Minutes spent on Phone/Video with Pt.: 60 Coding Level of Care Code New Pt Tele Psy Diag Eval (32084) Patient Type New Diagnoses Anxiety F41.9 Pre-bariatric surgery psychological evaluation Z71.89 Time Spent (min) 60
--- OUTSIDE RECORDS SUMMARY | 2024-12-11 08:37 | XMS_ITS | Patient Health Record ---
Author Organization [facility] Address [address] [place] [address] Care Team Providers Care Glass Designer Name Role Phone Deandra Vaughn Primary Care Provider UnavailTevin Gao Jr Unavailable [phone] Allergies Allergen (clinical drug ingredient) Drug/Non Drug [...] Problem Status W/U Status Risk Notes Problem 794768339 Colon cancer screening (Z12.11) Active confirmed Problem 339592801 Bloating (R14.0) Active confirmed Problem GERD (gastroesophageal reflux disease) (K21.9) Active confirmed Problem [id number] Gastroesophageal reflux disease, unspecified whether esophagitis present (K21.9) Active confirmed Plan Of Treatment Future Test Test Name Order Date UPPER GI ENDOSCOPY 01/04/2023 COLONOSCOPY 01/04/2023 Insurance Providers Payer Name Payer Address Payer Phone Subscriber Number Group Number Insured Name Patient Relationship to Insured Coverage Start Date Coverage End Date [employer] (No Referra l) [address] [address] [place] [address] [id number] PIYUSH DEE Self - patient is the insured Medical (General) History Medical History History ICD Code Hypertension Hyperlipidemia Left breast cancer, XRT and hormonal the rapy Polycythemia Anxiety Recent seizures, MRI of the brain pendin g Colonoscopy 07/25/08, hyperplastic polyps x2, ten-year followup Surgical History Surgery Date(Month/Year) Left breast cancer, lumpectomy/axillary node dissection 08/02 Cholecystectomy 10/07
--- OUTSIDE RECORDS SUMMARY | 2024-12-11 08:37 | XMS_ITS | Patient Health Record ---
Author Organization Rajinder Guerrero III, MD Address [address] [place] [address] Care Team Providers Care Plant Manager Name Role Phone Roderick TAPIA, [facility] Primary Care Provider Rajinder Camargo Unavailable [phone] Allergies Allergen (clinical drug ingredient) Drug/Non Drug Allergy documented on EMR Reaction Allergy Type Onset Date Status No Known Drug Allergy Unknown Drug Allergy Active Results Component Value Reference Range Notes Complete Blood Count Auto Di ff Reviewed date:01/29/2024 07:10:24 AM Interpretation: Performing Lab:[facility], [address] [place] [phone] Notes/Report: White Blood Count 9.9 4.8-10.8 X10*3/uL [...] 0.0-0.2 /100WBC Neutrophils Absolute Auto 7.4 2.0-8.3 x10*3/uL Imm Gran Abs Auto 0.03 0.00-0.03 X10*3/uL Lymphocytes Absolute Auto 1.6 1.2-4.9 X10*3/uL Monocytes Absolute Auto 0.8 0.1-1.2 X10*3/uL Eosinophils Absolute Auto 0.2 0.0-0.4 X10*3/uL Basophils Absolute Auto 0.0 0.0-0.2 X10*3/uL NRBC Abs Auto 0.000 0.0-0.012 X10*3/uL Therapeutic Phlebotomy Reviewed date:01/29/2024 07:10:24 AM Interpretation: Performing Lab:[facility], [address] [place] [phone] Notes/Report: THER/HGB TNP 12.0-16.0 g/dL Lab Results on file. Performed at [facility] on 01/24/24: Hgb: 14.3 g/dl Hct: 43.6 % THER/HCT TNP 37.0-47.0 % Therapeutic Phlebotomy Phlebotomy Performed 500 mls drawn on 01/24/24. Please note that a copy of this report has been sent to the Primary Care Physician, the ordering physician and any physician designated by patient request. Complete Blood Count Auto Di ff Reviewed date:04/08/2024 06:11:33 AM Interpretation: Performing Lab:[facility], [address] [place] [phone] Notes/Report: White Blood Count 11.0 4.8-10.8 X10*3/uL [...] 0.0-0.2 /100WBC Neutrophils Absolute Auto 7.9 2.0-8.3 x10*3/uL Imm Gran Abs Auto 0.03 0.00-0.03 X10*3/uL Lymphocytes Absolute Auto 1.9 1.2-4.9 X10*3/uL Monocytes Absolute Auto 1.0 0.1-1.2 X10*3/uL Eosinophils Absolute Auto 0.2 0.0-0.4 X10*3/uL Basophils Absolute Auto 0.1 0.0-0.2 X10*3/uL NRBC Abs Auto 0.000 0.0-0.012 X10*3/uL Therapeutic Phlebotomy Reviewed date:04/08/2024 06:11:33 AM Interpretation: Performing Lab:[address] [address] Notes/Report: THER/HGB TNP 12.0-16.0 g/dL Lab Results on file. Performed at [facility] on 03/26/24: Hgb: 13.5 g/dl Hct: 41.7 % THER/HCT TNP 37.0-47.0 % Therapeutic Phlebotomy Phlebotomy Performed 500 mls drawn on 03/26/24. Please note that a copy of this report has been sent to the Primary Care Physician, the ordering physician and any physician designated by patient request. Complete Blood Count Auto Di ff Reviewed date:06/09/2024 09:13:32 AM Interpretation: Performing Lab:[facility], [address] [place] [phone] Notes/Report: White Blood Count 8.9 4.8-10.8 X10*3/uL [...] 0.0-0.2 /100WBC Neutrophils Absolute Auto 5.9 2.0-8.3 x10*3/uL Imm Gran Abs Auto 0.03 0.00-0.03 X10*3/uL Lymphocytes Absolute Auto 1.7 1.2-4.9 X10*3/uL Monocytes Absolute Auto 0.9 0.1-1.2 X10*3/uL Eosinophils Absolute Auto 0.2 0.0-0.4 X10*3/uL Basophils Absolute Auto 0.1 0.0-0.2 X10*3/uL NRBC Abs Auto 0.000 0.0-0.012 X10*3/uL Therapeutic Phlebotomy Reviewed date:06/09/2024 09:13:32 AM Interpretation: Performing Lab:[facility], [address] [place] [phone] Notes/Report: THER/HGB TNP 12.0-16.0 g/dL Lab Results on file. Performed at [facility] on 05/28/24: Hgb: 13.1 g/dl Hct: 40.9 % THER/HCT TNP 37.0-47.0 % Therapeutic Phlebotomy TNP Reason: Pre-phlebotomy Hgb/Hct is below the established parameter for this patient. Please note that a copy of this report has been sent to the Primary Care Physician, the ordering physician and any physician designated by patient request. Complete Blood Count Auto Di ff Reviewed date:08/03/2024 07:24:43 AM Interpretation: Performing Lab:[facility], [address] [place] [phone] Notes/Report: White Blood Count 8.5 4.8-10.8 X10*3/uL [...] 0.0-0.2 /100WBC Neutrophils Absolute Auto 5.7 2.0-8.3 x10*3/uL Imm Gran Abs Auto 0.03 0.00-0.03 X10*3/uL Lymphocytes Absolute Auto 1.7 1.2-4.9 X10*3/uL Monocytes Absolute Auto 0.8 0.1-1.2 X10*3/uL Eosinophils Absolute Auto 0.2 0.0-0.4 X10*3/uL Basophils Absolute Auto 0.1 0.0-0.2 X10*3/uL NRBC Abs Auto 0.000 0.0-0.012 X10*3/uL Therapeutic Phlebotomy Reviewed date:08/03/2024 07:24:43 AM Interpretation: Performing Lab:[facility], [address] [place] [phone] Notes/Report: THER/HGB TNP 12.0-16.0 g/dL Lab Results on file. Performed at [facility] on 07/30/24: Hgb: 12.5 g/dl Hct: 37.4% THER/HCT TNP 37.0-47.0 % Therapeutic Phlebotomy TNP Reason: Pre-phlebotomy Hgb/Hct is below the established parameter for this patient. Please note that a copy of this report has been sent to the Primary Care Physician, the ordering physician and any physician designated by patient request. Complete Blood Count Auto Di ff Reviewed date:10/02/2024 01:20:13 PM Interpretation: Performing Lab:[facility], [address] [place] [phone] Notes/Report: White Blood Count 8.6 4.8-10.8 X10*3/uL Red Blood Count 3.50 4.20-5.50 X10*6/uL Hemoglobin 12.1 12.0-16.0 g/dl Hematocrit 35.7 37.0-47.0 % Mean Corpuscular Volume 102.0 80.0-98.0 fL Mean Corpuscular Hemoglobin 34.6 27.0-33.0 pg Mean Corpuscular HGB Conc 33.9 31.0-35.0 g/dl Red Cell Distribution Width 14.1 11.0-16.0 % Platelet Count 311 160-400 X10*3/uL Mean Platelet Volume 9.6 9.4-12.3 fL Neutrophils Percent Auto 74.4 45-73 % Imm Gran Pct Auto 0.5 0.0-0.4 % Lymphocytes Percent Auto 13.8 20-40 % Monocytes Percent Auto 9.1 2-11 % Eosinophils Percent Auto 1.8 0-4 % Basophils Percent Auto 0.4 0-2 % NRBC Pct Auto 0.0 0.0-0.2 /100WBC Neutrophils Absolute Auto 6.4 2.0-8.3 x10*3/uL Imm Gran Abs Auto 0.04 0.00-0.03 X10*3/uL Lymphocytes Absolute Auto 1.2 1.2-4.9 X10*3/uL Monocytes Absolute Auto 0.8 0.1-1.2 X10*3/uL Eosinophils Absolute Auto 0.2 0.0-0.4 X10*3/uL Basophils Absolute Auto 0.0 0.0-0.2 X10*3/uL NRBC Abs Auto 0.000 0.0-0.012 X10*3/uL Therapeutic Phlebotomy Reviewed date:10/02/2024 01:20:13 PM Interpretation: Performing Lab:[facility], [address] [place] [phone] Notes/Report: THER/HGB TNP 12.0-16.0 g/dL Lab Results on file. Performed at [facility] on 10/01/24: Hgb: 12.1 g/dl Hct: 35.7 % THER/HCT TNP 37.0-47.0 % Therapeutic Phlebotomy TNP Reason: Pre-phlebotomy Hgb/Hct is below the established parameter for this patient. Please note that a copy of this report has been sent to the Primary Care Physician, the ordering physician and any physician designated by patient request. Complete Blood Count Auto Di ff Reviewed date:12/02/2024 01:40:01 PM Interpretation: Performing Lab:[facility], [address] [place] [phone] Notes/Report: White Blood Count 8.0 4.8-10.8 X10*3/uL Red Blood Count 3.59 4.20-5.50 X10*6/uL Hemoglobin 12.1 12.0-16.0 g/dl Hematocrit 36.0 37.0-47.0 % Mean Corpuscular Volume 100.3 80.0-98.0 fL Mean Corpuscular Hemoglobin 33.7 27.0-33.0 pg Mean Corpuscular HGB Conc 33.6 31.0-35.0 g/dl Red Cell Distribution Width 13.2 11.0-16.0 % Platelet Count 310 160-400 X10*3/uL Mean Platelet Volume 9.5 9.4-12.3 fL Neutrophils Percent Auto 75.4 45-73 % Imm Gran Pct Auto 0.4 0.0-0.4 % Lymphocytes Percent Auto 13.4 20-40 % Monocytes Percent Auto 8.1 2-11 % Eosinophils Percent Auto 2.0 0-4 % Basophils Percent Auto 0.7 0-2 % NRBC Pct Auto 0.0 0.0-0.2 /100WBC Neutrophils Absolute Auto 6.1 2.0-8.3 x10*3/uL Imm Gran Abs Auto 0.03 0.00-0.03 X10*3/uL Lymphocytes Absolute Auto 1.1 1.2-4.9 X10*3/uL Monocytes Absolute Auto 0.7 0.1-1.2 X10*3/uL Eosinophils Absolute Auto 0.2 0.0-0.4 X10*3/uL Basophils Absolute Auto 0.1 0.0-0.2 X10*3/uL NRBC Abs Auto 0.000 0.0-0.012 X10*3/uL Therapeutic Phlebotomy Reviewed date:12/02/2024 01:40:01 PM Interpretation: Performing Lab:[facility], [address] [place] [phone] Notes/Report: THER/HGB TNP 12.0-16.0 g/dL Lab Results on file. Performed at [facility] on 12/02/24: Hgb: 12.1 g/dl Hct: 36.0 % THER/HCT TNP 37.0-47.0 % Therapeutic Phlebotomy [...] Problem Status W/U Status Risk Notes Problem 410378985 Obesity (E66.9) Active confirmed Her body mass index is 40. We discussed her diet and nutrition. We made a plan to lose weight at a rate of one half of a pound per week. Problem Postmenopausal state (39439333) Post-menopausal (Z78.0) Active confirmed She has not had a period in several years. Problem Polycythemia vera (932330146) Polycythemia vera (D45) Active confirmed Her polycythemia is stable and her hematocrit is in the normal range. She will have the CBC done every 2 months instead of one now that she is stable. She will avoid taking iron-containin g medications. Problem 92607772 Iron deficiency (E61.1) Active confirmed She is no longer anemic and a mean cell volume is macrocytic. She'll be observed carefully. The iron will be continued. Comprehensive blood work with a ferritin has been ordered.She has been phlebotomize continuously. Close observation will occur and. Treatment used if necessary. Problem 705112187 Raynaud's syndrome without gangrene (I73.00) Active confirmed No further episodes of Raynaud's syndrome have occurred since her last visit. Problem 74433109 Tobacco dependence (F17.200) Active confirmed She continues to smoke and I have made her aware of the health consequences doing so. I have referred her to the smoking cessation program at [facility]. Problem 949301429 Erythrocytosis (D75.1) Active confirmed She will continue the phlebotomy if needed. At this time her hematocrit and hemoglobin are normal. Currently, the increased red cell mass is well controlled. Problem 503705179 Morbid obesity (E66.01) Active confirmed She has gained 86pounds and her body mass index is now 40. We have reviewed diet and nutrition. We have made a plan to lose weight at a rate of one half of a pound per week through a diet restricted in fat calories and sodium combined with regular physical activity.She is now on Zepbound Problem Malignant neoplasm of upper-outer quadrant of female breast (380708971) Malignant neoplasm of upper-outer quadrant of left female breast, unspecified estrogen receptor status (C50.412) Active confirmed She continues with surveillance mammography and breast self examination. There was no sign of metastatic disease or recurrence today. Her anastrozole was continued. Problem 085748357 Lobular carcinoma of left breast, stage 1 (C50.912) Active confirmed There is no sign of recurrence. The radiation changes are fading. All scars are well-healed. No masses are palpable. She will continue on the anastrozole for 5 years. She is having no side effects from the drug. Vital Signs Heart Rate 67 /min 10/17/2024 Temperature 97.4 degrees Fahrenheit 10/17/2024 Blood pressure diastolic 76 mm Hg 10/17/2024 Height 65 in 10/17/2024 Blood pressure systolic 138 mm Hg 10/17/2024 Weight 249 lbs 10/17/2024 BMI 41.43 kg/m2 10/17/2024 Encounters Encounter Location Date Provider Diagnosis Rajinder Guerrero III, MD [address] [place] [address] [place] [phone] 04/18/2024 Rajinder Guerrero Iron deficiency E61. 1 ; Polycythemia vera D45 ; Celiac disease K90.0 ; Tobacco dependence F17.200 ; Raynaud's syndrome without gangrene I73.00 ; Malignant neoplasm of upper-outer quadrant of left female breast, 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 and Morbid obesity E66.01 Rajinder Guerrero III, MD [address] [place] [address] [place] [phone] 10/17/2024 Rajinder Guerrero Iron deficiency E61. 1 ; Polycythemia vera D45 ; Tobacco dependence F17.200 ; Malignant neoplasm of upper-outer quadrant of left female breast, 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 and Morbid obesity E66.01 Rajinder Guerrero III, MD [address] [place] [address] [place] [phone] 12/10/2024 Rajinder Guerrero Assessments Encounter Date Diagnosis (ICD Code) Assessment Notes Treatment Notes Treatment Clinical Notes 04/18/2024 Polycythemia vera (ICD-10 - D45) Her [...] She will avoid taking iron-containing medications. 10/17/2024 Iron deficiency (ICD-10 - E61.1) She is no longer anemic and a mean cell volume is macrocytic. She'll be observed carefully. The iron will be continued. Comprehensive blood work with a ferritin has been ordered.She has been phlebotomize continuously. Close observation will occur and. Treatment used if necessary. 04/18/2024 Celiac disease (ICD-10 - K90.0) She has had no change in her gastrointestinal symptoms. Her weight is stable and she seems happy and well. No treatment is necessary today. 10/17/2024 Tobacco dependence (ICD-10 - F17.200) She continues to smoke and I have made her aware of the health consequences doing so. I have referred her to the smoking cessation program at [facility]. 04/18/2024 Tobacco dependence (ICD-10 - F17.200) She continues to smoke and I have made her aware of the health consequences doing so. I have referred her to the smoking cessation program at [facility]. 10/17/2024 Malignant neoplasm of upper-outer quadrant of left female breast, unspecified estrogen receptor status (ICD-10 - C50.412) She continues with surveillance mammography and breast self examination. There was no sign of metastatic disease or recurrence today. Her anastrozole was continued. 04/18/2024 Raynaud's syndrome without gangrene (ICD-10 - I73.00) No further episodes of Raynaud's syndrome have occurred since her last visit. 10/17/2024 Morbid obesity (ICD-10 - E66.01) She has gained 86pounds and her body mass index is now 40. We have reviewed diet and nutrition. We have made a plan to lose weight at a rate of one half of a pound per week through a diet restricted in fat calories and sodium combined with regular physical activity.She is now on Zepbound 04/18/2024 Malignant neoplasm of upper-outer quadrant of [...] C) 04/18/2024 PROFILE, RANDOM (COMPREHENSIVE METABOLIC ) 12/30/2020 PROFILE, RANDOM (COMPREHENSIVE METABOLIC ) 05/19/2023 PROFILE, RANDOM (COMPREHENSIVE METABOLIC ) 08/27/2019 PROFILE, RANDOM (COMPREHENSIVE METABOLIC ) 03/21/2022 PROFILE, RANDOM (COMPREHENSIVE METABOLIC ) 04/29/2019 PROFILE, RANDOM (COMPREHENSIVE METABOLIC ) 06/30/2021 PROFILE, RANDOM (COMPREHENSIVE METABOLIC ) 09/22/2023 PROFILE, RANDOM (COMPREHENSIVE METABOLIC ) 11/13/2019 PROFILE, RANDOM (COMPREHENSIVE METABOLIC ) 07/20/2022 PROFILE, RANDOM (COMPREHENSIVE METABOLIC ) 10/17/2024 PROFILE, RANDOM (COMPREHENSIVE METABOLIC ) 10/19/2021 TSH (THYROID STIMULATING HORMONE) 2021 FERRITIN 08/27/2019 FERRITIN 04/29/2019 B12 06/30/2021 CBC w DIFF 10/17/2024 CBC w DIFF 10/19/2021 CBC w DIFF 06/30/2021 CBC w DIFF 12/30/2020 CBC w DIFF 04/18/2024 CBC w DIFF 08/27/2019 CBC w DIFF 03/21/2022 CBC w DIFF 11/13/2019 CBC w DIFF 07/20/2022 CBC w DIFF 04/29/2019 SED RATE (ESR) 12/30/2020 MAMMOGRAM DIGITAL BILATERAL SCREEN 06/14 CBC WITH AUTO DIFF 05/19/2023 CBC WITH AUTO DIFF 09/22/2023 RETIC 06/30/2021 Ferritin 10/17/2024 Ferritin 05/19/2023 Ferritin 06/30/2021 Ferritin 04/18/2024 Ferritin 09/22/2023 Lipid Panel 04/18/2024 Folate 06/30/2021 Next Appt Details Provider Name:Rajinder Guerrero, 02/21/2025 09:00:00 AM, [address] [place] [address] DR, [address], [place], [address], Insurance Providers Payer Name Payer Address Payer Phone Subscriber Number Group Number Insured Name Patient Relationship to Insured Coverage Start Date Coverage End Date [employer] [address] [place] [phone] [id number] Larisa Dee Self - patient is the insured MEDICARE NGS [address] [place] [phone] [id number] Larisa Dee Self - patient is the insured Medical (General) History Medical History History ICD Code history of iron deficiency celiac disease bunion left foot history of herpes zoster erythrocytosis episode of Raynaud's syndrome October invasive lobular carcinoma, l eft breast,ER+MA+Her-,8mm,N0 Left breast cancer in 2018, Gallbladder surgery in the past June 2017 invasive lobular carcinoma, l eft breast,ER+MA+Her-,8mm Surgical History Surgery Date(Month/Year) Gallbladder surgery Cholecystectomy 09/2022 drainage tonsillar abscess 12/2018 left breast lumpectomy,SN, invasive lobu lar carcinoma 06/2017 Hospitalization History Reason Date(Month/Year) No history tonsilitis 09/2021
== END 2024-12-11 09:02 | disposition home or self-care (01) ==
LOC: HO.HBST 08:16
PROVIDERS: PCP Internal Medicine; Visit Provider Counselor Mental Health
DX: F41.9 Anxiety disorder, unspecified (principal); Z71.89 Other specified counseling
CPT/HCPCS: 90791

== ENCOUNTER 2024-12-23 07:57 | Outpatient (REF) | payer MEDICARE, SELFPAY ==
--- OUTSIDE RECORDS SUMMARY | 2023-09-22 11:00 | XMS_ITS ---
Author Organization Rajinder Guerrero III, MD Address [address] [place] [address] Care Team Providers Care Broadcast Maintenance Technician Name Role Phone Roderick TAPIA, [facility] Primary Care Provider Rajinder Camargo Unavailable [phone] Allergies Allergen (clinical drug ingredient) Drug/Non Drug [...] W/U Status Risk Notes Problem Polycythemia vera ([id number]) Polycythemia vera (D45) Active confirmed Her polycythemia [...] Date Provider Diagnosis Rajinder Guerrero III, MD [address] [place] [address] [place] [address] 09/22/2023 Rajinder Guerrero Iron deficiency E61. 1 [...] her to the smoking cessation program at [facility]. 09/22/2023 Polycythemia vera (ICD-10 - D45) [...] OV Provider Name:Rajinder Guerrero, 02/21/2025 09:00:00 AM, [address] [place] [address], [place] [address], [place], [address], Progress Notes * LUIZ TamaraoscarDOB:1955 (68 yo F)Acc No.[id number]:09/22/2023 Progress Notes Patient: Larisa Conklin Provider: Oliva Guerrero MD :1955 A ge:68 Y S ex:Female Date:09/22/2023 Address:[address] [place], [place] [phone] Pcp:Deandra Vaughn MD Subjective: * Chief Complaints: [...] x-cigarette smoker S he was born in [place] and is . She has 2 sons and works at [employer] in [place]. * Medications: T akingLORazepam 1 MG Tablet [...] - 09/20/2023) (Collection Date - 09/20/2023)? ValueReference Range?[id number] - ng/mL * Examination: G eneral Examination: [...] her to the smoking cessation program at [facility]. 4. P olycythemia vera - D45, [...] MD Date: 0 09/22/2023 Generated for Jannie stover/Baljit/Katerineitting on: 0 12/23/2024 08:00 AM EDT History and Physical Notes * HPI (History of Present Illness) Category Sub-Category Detail Notes COVID-19 Screening Questions Have you had any new onset fever, chills, cough, congestion, sore throat, shortness of breath, muscle aches?: No Have you been exposed to the virus withi n the last 10 days?: No Have you travelled internationally in [facility] last 10 days?: No Have you [...]
--- OUTSIDE RECORDS SUMMARY | 2024-03-25 14:15 | XMS_ITS ---
Author Organization Rajinder Guerrero III, MD Address [address] [place] [address] [address] [facility] [place] [address] Care Team Providers Care Tannery Worker Name Role Phone Roderick TAPIA, Deandra Primary Care Provider Rajinder Camargo Unavailable [phone] REASON FOR VISIT Follow-up Social History Sex Assigned At : Social History Observation Description Sex Assigned At Female Encounters Encounter Location Date Provider Diagnosis Rajinder Guerrero III, MD [address] [place] [address] [place] [address] 03/25/2024 Rajinder Guerrero Plan Of Treatment Next Appt Details Provider Name:Rajinder Guerrero, 02/21/2025 09:00:00 AM, [address] [place] [address] [place], [address], Progress Notes * Larisa DEEDOB:1955 (69 yo F)Acc No.[id number]:03/25/2024 Progress Notes Patient: Larisa BATES Provider: Oliva Guerrero MD :1955 A ge:69 Y S ex:Female Date:03/25/2024 Address:[address] [place], [place] [address] [id number] Pcp:Deandra Vaughn MD Subjective: * Chief Complaints: [...] MD Date: 1 05/26/2023 Generated for Jannie stover/Baljit/Annalise on: 0 12/23/2024 08:01 AM EDT
--- OUTSIDE RECORDS SUMMARY | 2024-04-18 05:00 | XMS_ITS ---
Author Organization Rajinder Guerrero III, MD Address [address] [place] [address] Care Team Providers Care Fiscal Economist Name Role Phone Roderick TAPIA, [facility] Primary Care Provider Rajinder Camargo Unavailable [phone] Allergies Allergen (clinical drug ingredient) Drug/Non Drug [...] Date Provider Diagnosis Rajinder Guerrero III, MD [address] [place] [address] [place] [address] 04/18/2024 Rajinder Guerrero Iron deficiency E61. 1 [...] her to the smoking cessation program at [facility]. 04/18/2024 Raynaud's syndrome without gangrene (ICD-10 [...] follow-up Provider Name:Rajinder Guerrero, 02/21/2025 09:00:00 AM, [address] [place] [address], [address], [address], Progress Notes * LUIZ LarisaDOB:1955 (69 yo F)Acc No.[id number]:04/18/2024 Progress Notes Patient: Larisa BATES Provider: Oliva Guerrero MD :1955 A ge:69 Y S ex:Female Date:04/18/2024 Address:[address] [place], [place] [phone] Pcp:Deandra Vaughn MD Subjective: * Chief Complaints: [...] N egative S he was born in [place] and is . She has 2 sons and works at [employer] in [place]. Smoking: Occasional, Exercise: Uses an exercise [...] her to the smoking cessation program at [facility]. 5 . R aynaud's syndrome without [...] 04/18/2024 Generated for Jannie stover/Baljit/Annalise on: 0 12/23/2024 08:00 AM EDT History [...]
--- OUTSIDE RECORDS SUMMARY | 2024-10-17 05:15 | XMS_ITS ---
Author Organization Rajinder Guerrero III, MD Address [address] [facility] [place] [address] Care Team Providers Care Wood Piler Name Role Phone Roderick TAPIA, [facility] Primary Care Provider Rajinder Camargo Unavailable [phone] Allergies Allergen (clinical drug ingredient) Drug/Non Drug [...] Date Provider Diagnosis Rajinder Guerrero III, MD [address] [place] [address] [place] [address] 10/17/2024 Rajinder Guerrero Iron deficiency E61. 1 [...] her to the smoking cessation program at [facility]. 10/17/2024 Malignant neoplasm of upper-outer quadrant of [...] OV Provider Name:Rajinder Rodriguesne, 02/21/2025 09:00:00 AM, [address] [place] [address] SATYA CONNOLLY, [place], [address], Progress Notes * Larisa DEEDOB:1955 (69 yo F)Acc No.[id number]:10/17/2024 Progress Notes Patient: Larisa BATES Provider: Oliva Guerrero MD :1955 A ge:69 Y S ex:Female Date:10/17/2024 Address:[address] [place] [address] FR[place] [id number] Pcp:Deandra Vaughn MD Subjective: * Chief Complaints: [...] urrent smoker S he was born in [place] and is . She has 2 sons and works at [employer] in [place]. Smoking: Occasional, Exercise: Uses an exercise bike. [...] her to the smoking cessation program at [facility]. 4 . M alignant neoplasm of upper-outer [...] Guerrero MD Date: 0 10/17/2024 Generated for Cintiai jolanta/Baljit/Katerineitting on: 0 12/23/2024 08:01 AM EDT History and Physical Notes * [...]
--- OUTSIDE RECORDS SUMMARY | 2024-12-10 12:32 | XMS_ITS ---
Author Organization Rajinder Guerrero III, MD Address [address] [place] [address] [place] [address] Care Team Providers Care Cable Ferry Operator Name Role Phone Roderick TAPIA, [facility] Primary Care Provider Rajinder Camargo Unavailable [phone] REASON FOR VISIT FYI only Social History Sex Assigned At : Social History Observation Description Sex Assigned At Female Encounters Encounter Location Date Provider Diagnosis Rajinder Guerrero III, MD [address] [place] [address] [place] [address] 12/10/2024 Rajinder Guerrero Plan Of Treatment Next Appt Details Provider Name:Raijnder Guerrero, 02/21/2025 09:00:00 AM, [address] [place] [address] [address] [place], [place], [address], Progress Notes * Larisa DEEDOB:1955 (69 yo F)Acc No.[id number]:12/10/2024 Patient: Jj CONROY Larisa :1955 A ge:69 Y S ex:Female Address:[address] [place], [place] [address] [address] * true * Date: Generated for Printi ng/Faxing/eTransmitting on: 0 12/23/2024 08:00 AM EDT
--- NOTE | ~2024-12-23 | XR_ITS ---
EXAMINATION: XR CHEST 2 VIEWS HISTORY: E66.01 - Morbid (severe) obesity due to excess calories COMPARISON: There are no prior studies available for comparison. FINDINGS: PA and lateral views of the chest are submitted. The lungs are expanded and clear. There is no pleural effusion, pneumothorax, or pulmonary vascular congestion. The heart is enlarged. There is degenerative disc disease of the spine. XR/XR chest 2V IMPRESSION: Cardiomegaly. The lungs are clear. Electronically signed by: Rajinder Olson MD 12/23/2024 09:21 AM EDT
--- NOTE | 2024-12-23 08:01 | ECG_ITS ---
Test Reason : e66.01 Blood Pressure : */* mmHG Vent. Rate : 53 BPM Atrial Rate : 53 BPM P-R Int : 198 ms QRS Dur : 90 ms QT Int : 442 ms P-R-T Axes : 64 2 22 degrees QTcB Int : 414 ms Sinus bradycardia Low voltage QRS Cannot rule out Anterior infarct , age undetermined Abnormal ECG No previous ECGs available Referred By: David Santana Electronically Signed By: KULWINDER DINERO MD
--- OUTSIDE RECORDS SUMMARY | 2024-12-23 08:01 | XMS_ITS | Patient Health Record ---
Author Organization [facility] Address [address] [place] [address] Care Team Providers Care Advertising Inserter Name Role Phone Deandra Vaughn Primary Care Provider UnavailTevin Gao Jr Unavailable [phone] Allergies Allergen (clinical drug ingredient) Drug/Non Drug [...] Problem Status W/U Status Risk Notes Problem 265987111 Colon cancer screening (Z12.11) Active confirmed Problem 647980401 Bloating (R14.0) Active confirmed Problem Gastroesophageal reflux disease (579476041) GERD (gastroesophageal reflux disease) (K21.9) Active confirmed Problem 563608745 Gastroesophageal reflux disease, unspecified whether esophagitis present (K21.9) Active confirmed Plan Of Treatment Future Test Test Name Order Date UPPER GI ENDOSCOPY 01/04/2023 COLONOSCOPY 01/04/2023 Insurance Providers Payer Name Payer Address Payer Phone Subscriber Number Group Number Insured Name Patient Relationship to Insured Coverage Start Date Coverage End Date [employer] (No Referra l) [address] [address] [place] [address] [id number] PIYUSH DEE Self - patient is the insured Medical (General) History Medical History History ICD Code Hypertension Hyperlipidemia Left breast cancer, XRT and hormonal the rapy Polycythemia Anxiety Recent seizures, MRI of the brain pendin g Colonoscopy 07/25/08, hyperplastic polyps x2, ten-year followup Surgical History Surgery Date(Month/Year) Left breast cancer, lumpectomy/axillary node dissection 08/02 Cholecystectomy 10/07
--- OUTSIDE RECORDS SUMMARY | 2024-12-23 08:01 | XMS_ITS | Patient Health Record ---
Author Organization Rajinder Guerrero III, MD Address [address] [place] [address] Care Team Providers Care Emt Dispatcher Name Role Phone Roderick TAPIA, [facility] Primary Care Provider Rajinder Camargo Unavailable [phone] Allergies Allergen (clinical drug ingredient) Drug/Non Drug Allergy documented on EMR Reaction Allergy Type Onset Date Status No Known Drug Allergy Unknown Drug Allergy Active Results Component Value Reference Range Notes Complete Blood Count Auto Di ff Reviewed date:01/29/2024 07:10:24 AM Interpretation: Performing Lab:[facility], [address] [place] [phone] Notes/Report: White Blood Count 9.9 4.8-10.8 X10*3/uL [...] Phlebotomy Reviewed date:01/29/2024 07:10:24 AM Interpretation: Performing Lab:[facility], [address] [place] [phone] Notes/Report: THER/HGB TNP 12.0-16.0 g/dL Lab Results on file. Performed at [facility] on 01/24/24: Hgb: 14.3 g/dl Hct: 43.6 % THER/HCT TNP 37.0-47.0 % Therapeutic Phlebotomy Phlebotomy Performed 500 mls drawn on 01/24/24. Please note that a copy of this report has been sent to the Primary Care Physician, the ordering physician and any physician designated by patient request. Complete Blood Count Auto Di ff Reviewed date:04/08/2024 06:11:33 AM Interpretation: Performing Lab:[facility], [address] [place] [phone] Notes/Report: White Blood Count 11.0 4.8-10.8 X10*3/uL [...] Phlebotomy Reviewed date:04/08/2024 06:11:33 AM Interpretation: Performing Lab:[address] [phone] Notes/Report: THER/HGB TNP 12.0-16.0 g/dL Lab Results on file. Performed at [facility] on 03/26/24: Hgb: 13.5 g/dl Hct: 41.7 % THER/HCT TNP 37.0-47.0 % Therapeutic Phlebotomy Phlebotomy Performed 500 mls drawn on 03/26/24. Please note that a copy of this report has been sent to the Primary Care Physician, the ordering physician and any physician designated by patient request. Complete Blood Count Auto Di ff Reviewed date:06/09/2024 09:13:32 AM Interpretation: Performing Lab:[facility], [address] [place] [phone] Notes/Report: White Blood Count 8.9 4.8-10.8 X10*3/uL [...] Phlebotomy Reviewed date:06/09/2024 09:13:32 AM Interpretation: Performing Lab:[facility], [address] [place] [phone] Notes/Report: THER/HGB TNP 12.0-16.0 g/dL Lab Results on file. Performed at [facility] on 05/28/24: Hgb: 13.1 g/dl Hct: [...] ff Reviewed date:08/03/2024 07:24:43 AM Interpretation: Performing Lab:[facility], [address] [place] [phone] Notes/Report: White Blood Count 8.5 4.8-10.8 X10*3/uL [...] Phlebotomy Reviewed date:08/03/2024 07:24:43 AM Interpretation: Performing Lab:[facility], [address] [place] [phone] Notes/Report: THER/HGB TNP 12.0-16.0 g/dL Lab Results on file. Performed at [facility] on 07/30/24: Hgb: 12.5 g/dl Hct: [...] ff Reviewed date:10/02/2024 01:20:13 PM Interpretation: Performing Lab:[facility], [address] [place] [phone] Notes/Report: White Blood Count 8.6 4.8-10.8 X10*3/uL [...] Phlebotomy Reviewed date:10/02/2024 01:20:13 PM Interpretation: Performing Lab:[facility], [address] [place] [phone] Notes/Report: THER/HGB TNP 12.0-16.0 g/dL Lab Results on file. Performed at [facility] on 10/01/24: Hgb: 12.1 g/dl Hct: 35.7 [...] ff Reviewed date:12/02/2024 01:40:01 PM Interpretation: Performing Lab:[facility], [address] [place] [phone] Notes/Report: White Blood Count 8.0 4.8-10.8 X10*3/uL [...] Phlebotomy Reviewed date:12/02/2024 01:40:01 PM Interpretation: Performing Lab:[facility], [address] [place] [phone] Notes/Report: THER/HGB TNP 12.0-16.0 g/dL Lab Results on file. Performed at [facility] on 12/02/24: Hgb: 12.1 g/dl Hct: 36.0 [...] Problem Status W/U Status Risk Notes Problem 797296418 Obesity (E66.9) Active confirmed Her body mass index is 40. We discussed her diet and nutrition. We made a plan to lose weight at a rate of one half of a pound per week. Problem Postmenopausal state (43367067) Post-menopausal (Z78.0) Active confirmed She has not had a period in several years. Problem Polycythemia vera (017755744) Polycythemia vera (D45) Active confirmed Her polycythemia is stable and her hematocrit is in the normal range. She will have the CBC done every 2 months instead of one now that she is stable. She will avoid taking iron-containin g medications. Problem 78375121 Iron deficiency (E61.1) Active confirmed She is no longer anemic and a mean cell volume is macrocytic. She'll be observed carefully. The iron will be continued. Comprehensive blood work with a ferritin has been ordered.She has been phlebotomize continuously. Close observation will occur and. Treatment used if necessary. Problem 057707931 Raynaud's syndrome without gangrene (I73.00) Active confirmed No further episodes of Raynaud's syndrome have occurred since her last visit. Problem 33124512 Tobacco dependence (F17.200) Active confirmed She continues to smoke and I have made her aware of the health consequences doing so. I have referred her to the smoking cessation program at [facility]. Problem 189642192 Erythrocytosis (D75.1) Active confirmed She will continue the phlebotomy if needed. At this time her hematocrit and hemoglobin are normal. Currently, the increased red cell mass is well controlled. 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 There was no sign of metastatic disease or recurrence today. Her anastrozole was continued. Problem 684249616 Lobular carcinoma of left breast, stage 1 [...] Provider Diagnosis Rajinder Guerrero III, MD [address] [place] [address] [place] [id number] 04/18/2024 Rajinder Guerrero Iron deficiency E61. 1 ; Polycythemia vera D45 ; Celiac disease K90.0 ; Tobacco dependence F17.200 ; Raynaud's syndrome without gangrene I73.00 ; Malignant neoplasm of upper-outer quadrant of left female breast, 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 and Morbid obesity E66.01 Rajinder Guerrero III, MD [address] [place] [address] [place] [id number] 10/17/2024 Rajinder Guerrero Iron deficiency E61. 1 ; Polycythemia vera D45 ; Tobacco dependence F17.200 ; Malignant neoplasm of upper-outer quadrant of left female breast, 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 and Morbid obesity E66.01 Rajinder Guerrero III, MD [address] [place] [address] [place] [id number] 12/10/2024 Rajinder Guerrero Assessments Encounter Date Diagnosis [...] her to the smoking cessation program at [facility]. 04/18/2024 Tobacco dependence (ICD-10 - F17.200) She continues to smoke and I have made her aware of the health consequences doing so. I have referred her to the smoking cessation program at [facility]. 10/17/2024 Malignant neoplasm of upper-outer quadrant [...] Details Provider Name:Rajinder Guerrero, 02/21/2025 09:00:00 AM, [address] [place] [address] DR, [address], [place], [phone], Insurance Providers Payer Name Payer Address Payer Phone Subscriber Number Group Number Insured Name Patient Relationship to Insured Coverage Start Date Coverage End Date [employer] [address] [place] [phone] [id number] Larisa Dee Self - patient is the insured MEDICARE NGS [address] [place] [phone] [id number] Larisa Dee Self - patient is the insured Medical (General) History Medical History History ICD Code history of iron deficiency celiac disease bunion left foot history of herpes zoster erythrocytosis episode of Raynaud's syndrome October invasive lobular carcinoma, l eft breast,ER+PA+Her-,8mm,N0 Left breast cancer in 2018, Gallbladder surgery in the past June 2017 invasive lobular carcinoma, l eft breast,ER+PA+Her-,8mm Surgical History Surgery Date(Month/Year) Gallbladder surgery Cholecystectomy 09/2022 drainage tonsillar abscess 12/2018 left breast lumpectomy,SN, invasive lobu lar carcinoma 06/2017 Hospitalization History Reason Date(Month/Year) No history tonsilitis 09/2021
[2024-12-23 08:44] LABS: MANUAL DIFF FLAG NO
[2024-12-23 09:23] LABS: Hematocrit 34.9 % (37.0-47.0); Hemoglobin 11.8 g/dl (12.0-16.0); Imm Gran Abs Auto 0.03 X10*3/uL (0.00-0.03); Imm Gran Pct Auto 0.4 % (0.0-0.4); Lymphocytes Absolute Auto 1.3 X10*3/uL (1.2-4.9); Mean Corpuscular HGB Conc 33.8 g/dl (31.0-35.0); Mean Corpuscular Hemoglobin 33.7 pg (27.0-33.0); Mean Corpuscular Volume 99.7 fL (80.0-98.0); NRBC Abs Auto 0.000 X10*3/uL (0.0-0.012); NRBC Pct Auto 0.0 /100WBC (0.0-0.2); Platelet Count 359 X10*3/uL (160-400); Red Blood Count 3.50 X10*6/uL (4.20-5.50); White Blood Count 8.3 X10*3/uL (4.8-10.8)
[2024-12-23 09:29] LABS: Hemoglobin A1C 112.7150 umol/L; Total Hemoglobin (HGBA1C) 3084.3722 umol/L
[2024-12-23 10:07] LABS: Alanine Aminotransferase 27 U/L (0-31); Albumin Level 4.2 g/dL (3.5-5.0); Alkaline Phosphatase 68 U/L (39-117); Anion Gap 11 (12-20); Aspartate Amino Transferase 24 U/L (5-31); Blood Urea Nitrogen 32 mg/dL (9-16); Calcium 9.1 mg/dL (8.4-10.2); Carbon Dioxide 24 mmol/L (22-29); Chloride 110 mmol/L (96-108); Cholesterol 120 mg/dL (<200); Estimated Glomerular Filt Rate 49; HDL Cholesterol 35 mg/dL (>40); Iron 104 mcg/dL (30-160); Percent Iron Saturation 41 % (15-50); Potassium 4.7 mmol/L (3.3-5.1); Sodium 140 mmol/L (135-145); Total Iron Binding Capacity 256 mcg/dL (228-428); Total Protein 7.3 g/dL (6.5-8.0); Triglycerides 85 mg/dL (<150); Unsaturated Iron Binding 152 ug/dL
[2024-12-23 10:15] LABS: Ferritin 118 ng/mL (10-250)
[2024-12-23 10:30] LABS: Folate 8.7 ng/mL (> or = 4.0); Vitamin B12 490 pg/mL (200-900)
== END 2024-12-23 07:58 | disposition home or self-care (01) ==
LOC: HO.XRAY 07:57
PROVIDERS: PCP Internal Medicine; Visit Provider Surgery
DX: Z13.1 Encounter for screening for diabetes mellitus (principal); I10 Essential (primary) hypertension; E78.00 Pure hypercholesterolemia, unspecified; E66.01 Morbid (severe) obesity due to excess calories
CPT/HCPCS: 36415; 71046; 80053; 80061; 82306; 82607; 82728; 82746; 83036; 83525; 83540; 84425; 84443; 84590; 84630; 85025; 86140; 93005

== ENCOUNTER → 2024-12-23 08:01 | Outpatient (BNV) | payer MEDICARE, SELFPAY | PROVIDERS: PCP Internal Medicine; Visit Provider Internal Medicine Cardiovascular Disease | DX: R00.1 Bradycardia, unspecified (principal) | CPT/HCPCS: 93010 ==

== ENCOUNTER → 2024-12-23 08:43 | Outpatient (BNV) | payer MEDICARE, SELFPAY | PROVIDERS: PCP Internal Medicine; Visit Provider Radiology Diagnostic Radiology | DX: E66.01 Morbid (severe) obesity due to excess calories (principal); I51.7 Cardiomegaly | CPT/HCPCS: 71046 ==

== ENCOUNTER 2024-12-31 11:09 | Outpatient (AMB) | payer MEDICARE, SELFPAY ==
--- OUTSIDE RECORDS SUMMARY | 2023-09-22 11:00 | XMS_ITS ---
Author Organization Rajinder Guerrero III, MD Address [address] [place] [address] Care Team Providers Care Booking Supervisor Name Role Phone Roderick TAPIA, [facility] Primary Care Provider Rajinder Camargo Unavailable [phone] Allergies Allergen (clinical drug ingredient) Drug/Non Drug [...] W/U Status Risk Notes Problem Polycythemia vera ([id number]) Polycythemia vera (D45) Active confirmed Her polycythemia [...] Date Provider Diagnosis Rajinder Guerrero III, MD [address] [place] [address] [place] [address] 09/22/2023 Rajinder Guerrero Iron deficiency E61. 1 [...] her to the smoking cessation program at [facility]. 09/22/2023 Polycythemia vera (ICD-10 - D45) [...] Up: 6 Months, Reason: OV Provider Name:Rajinder Guerrero, 02/21/2025 09:00:00 AM, [address] [place] [address], [place] [address], [place], [address], Progress Notes * LUIZ TamaraoscarDOB:1955 (68 yo F)Acc No.[id number]:09/22/2023 Progress Notes Patient: Larisa Conklin Provider: Oliva Guerrero MD :1955 A ge:68 Y S ex:Female Date:09/22/2023 Address:[address] [place], [place] [id number] Pcp:Deandra Vaughn MD Subjective: * Chief Complaints: [...] x-cigarette smoker S he was born in [place] and is . She has 2 sons and works at [employer] in [place]. * Medications: T akingLORazepam 1 MG Tablet [...] - 09/20/2023) (Collection Date - 09/20/2023)? ValueReference Range?[id number] - ng/mL * Examination: G eneral Examination: [...] her to the smoking cessation program at [facility]. 4. P olycythemia vera - D45, [...] Guerrero MD Date: 0 09/22/2023 Generated for Janine stover/Baljit/Katerineitting on: 0 12/31/2024 03:15 PM EDT History and Physical Notes * HPI (History of Present Illness) Category Sub-Category Detail Notes COVID-19 Screening Questions Have you had any new onset fever, chills, cough, congestion, sore throat, shortness of breath, muscle aches?: No Have you been exposed to the virus withi n the last 10 days?: No Have you travelled internationally in [facility] last 10 days?: No Have you been [...]
--- OUTSIDE RECORDS SUMMARY | 2024-03-25 14:15 | XMS_ITS ---
Author Organization Rajinder Guerrero III, MD Address [address] [place] [address] [address] [place] [address] Care Team Providers Care Deliver Driver Name Role Phone Roderick TAPIA, Deandra Primary Care Provider Rajinder Camargo Unavailable [phone] REASON FOR VISIT Follow-up Social History Sex Assigned At : Social History Observation Description Sex Assigned At Female Encounters Encounter Location Date Provider Diagnosis Rajinder Guerrero III, MD [address] [place] [address] [address] [facility] [place] [address] 03/25/2024 Rajinder Guerrero Plan Of Treatment Next Appt Details Provider Name:Rajinder Guerrero, 02/21/2025 09:00:00 AM, [address] [place] [address] [place], [address], Progress Notes * Larisa DEEDOB:1955 (69 yo F)Acc No.[id number]:03/25/2024 Progress Notes Patient: Larisa BATES Provider: Oliva Guerrero MD :1955 A ge:69 Y S ex:Female Date:03/25/2024 Address:[address] [place], [place] [address] [id number] Pcp:Deandra Vaughn MD Subjective: * Chief Complaints: [...] Guerrero MD Date: 1 05/26/2023 Generated for Jnanie stover/Baljit/Annalise on: 0 12/31/2024 03:16 PM EDT
--- OUTSIDE RECORDS SUMMARY | 2024-04-18 05:00 | XMS_ITS ---
Author Organization Rajinder Guerrero III, MD Address [address] [place] [address] Care Team Providers Care Treasury Consultant Name Role Phone Roderick TAPIA, [facility] Primary Care Provider Rajinder Camargo Unavailable [phone] Allergies Allergen (clinical drug ingredient) Drug/Non Drug [...] Provider Diagnosis Rajinder Guerrero III, MD [address] [place] [address] [place] [address] 04/18/2024 Rajinder Guerrero Iron deficiency E61. 1 [...] smoking cessation program at [facility]. 04/18/2024 Raynaud's syndrome without gangrene (ICD-10 [...] follow-up Provider Name:Rajinder Guerrero, 02/21/2025 09:00:00 AM, [address] [place] [address], [address], [address], Progress Notes * LUIZ LarisaDOB:1955 (69 yo F)Acc No.[id number]:04/18/2024 Progress Notes Patient: Larisa BATES Provider: Oliva Guerrero MD :1955 A ge:69 Y S ex:Female Date:04/18/2024 Address:[address] [place], [place] [phone] Pcp:Deandra Vaughn MD Subjective: * Chief Complaints: [...] N egative S he was born in [place] and is . She has 2 sons and works at [employer] in [place]. Smoking: Occasional, Exercise: Uses an exercise bike. [...] smoking cessation program at [facility]. 5 . R aynaud's syndrome without [...] 04/18/2024 Generated for Jannie stover/Baljit/Annalise on: 0 12/31/2024 03:15 PM EDT History [...]
--- OUTSIDE RECORDS SUMMARY | 2024-10-17 05:15 | XMS_ITS ---
Author Organization Rajinder Guerrero III, MD Address [address] [place] [address] Care Team Providers Care Counseling Psychologist Name Role Phone Roderick TAPIA, [facility] Primary Care Provider Rajinder Camargo Unavailable [phone] Allergies Allergen (clinical drug ingredient) Drug/Non Drug [...] Provider Diagnosis Rajinder Guerrero III, MD [address] [place] [address] [place] [address] 10/17/2024 Rajinder Guerrero Iron deficiency E61. 1 ; [...] to the smoking cessation program at [facility]. 10/17/2024 Malignant neoplasm of upper-outer quadrant [...] Up: 4 Months, Reason: OV Provider Name:Rajinder Rodriguesne, 02/21/2025 09:00:00 AM, [address] [place] [address] SATYA CONNOLLY, [place], [address], Progress Notes * Larisa DEEDOB:1955 (69 yo F)Acc No.[id number]:10/17/2024 Progress Notes Patient: Larisa BATES Provider: Oliva Guerrero MD :1955 A ge:69 Y S ex:Female Date:10/17/2024 Address:[address] [place] [address] FREDI LISS [id number] Pcp:Deandra Vaughn MD Subjective: * Chief Complaints: [...] urrent smoker S he was born in [place] and is . She has 2 sons and works at [employer] in [place]. Smoking: Occasional, Exercise: Uses an exercise bike. [...] to the smoking cessation program at [facility]. 4 . M alignant neoplasm of [...] 0 10/17/2024 Generated for Jannie stover/Baljit/Malinismitting on: 0 12/31/2024 03:16 PM EDT History and Physical Notes * [...]
--- OUTSIDE RECORDS SUMMARY | 2024-12-10 12:32 | XMS_ITS ---
Author Organization Rajinder Guerrero III, MD Address [address] [place] [address] [place] [address] Care Team Providers Care Emergency Registrar Name Role Phone Roderick TAPIA, [facility] Primary Care Provider Rajinder Camargo Unavailable [phone] REASON FOR VISIT FYI only Social History Sex Assigned At : Social History Observation Description Sex Assigned At Female Encounters Encounter Location Date Provider Diagnosis Rajinder Guerrero III, MD [address] [place] [address] [address] [facility] [place] [address] 12/10/2024 Rajinder Guerrero Plan Of Treatment Next Appt Details Provider Name:Rajinder Guerrero, 02/21/2025 09:00:00 AM, [address] [place] [address] [address] [place], [place], [address], Progress Notes * Larisa DEEDOB:1955 (69 yo F)Acc No.[id number]:12/10/2024 Patient: Jj CONROY Larisa :1955 A ge:69 Y S ex:Female Address:[address] [place], [place] [address] [address] * true * Date: Generated for Printi ng/Faxing/eTransmitting on: 0 12/31/2024 03:15 PM EDT
--- NOTE | 2024-12-31 11:05 | A.OFFWM_ITS ---
Intake Intake Visit Reasons: TV BH Intake Part 2 Allergies environmental allergies Allergy (Unknown, Verified 10/08/24 11:31) Unknown egg (Egg) Adverse Reaction (Intermediate, Verified 10/08/24 11:31) Gastrointestinal Upset PFSH Medical History (Updated 12/23/24 @ 19:31 by David Santana MD) Abnormal EKG GERD (gastroesophageal reflux disease) Anxiety Sleep apnea treated with continuous positive airway pressure (CPAP) Morbid obesity Polycythemia Orthostatic dizziness Hypercholesterolemia Hypertension History of left breast cancer Surgical History (Updated 09/11/24 @ 10:02 by Lani Maloney CMA) Hx of colonoscopy Hx of bladder endoscopy Hx laparoscopic cholecystectomy (09/20/22) History of lymph node excision History of lumpectomy of left breast Family History (Updated 09/11/24 @ 10:05 by Lani Maloney CMA) Mother Hypertension High cholesterol Angina at rest Father Hypertension High cholesterol Alcoholic Son No problems noted. Son Hx of sleep apnea Social History (Updated 09/11/24 @ 10:06 by Lani Maloney CMA) Household Members: None Housing: House Are you a primary customer care assistant to a significant other at home: No Do you presently have visiting nurse or other home services: No Alcohol intake: current Alcohol intake frequency: a few times a month Patient Tobacco Use Status: Current someday Tobacco user Tobacco use type: Cigarette Cigarettes Per Day: 1 Years Smoked: 40 Second Hand Smoke Exposure: No service: No Current occupational status: employed Behavioral Health Assessment Weight Management Therapy Therapy Notes Details The patient is a 69-year-old female presenting for a second visit to complete the behavioral health assessment as part of her preoperative evaluation for a surgical weight loss program. She was referred by her primary care provider. The patient reports a history of severe back issues that began approximately seven years ago, following her treatment for breast cancer. Since that time, she has experienced a weight gain of at least 75 pounds. Presenting Concerns Referral Source WMP-Provider. Reason for referral Completion of behavioral health assessment as part of process for weight-loss surgery. Precipitating Event Obesity Living Situation Current Living Situation Own At risk of losing current housing? No Satisfied with current living situation? Yes Comments PT lives with her . Food/Weight/Diet Expectations of change PT started the program on 09/30/2024 at 249 lbs, and the initial goal was to lose at least 10% of her weight, which is approximately 25lbs. Before surgery, the weight goal is 225 pounds. Her weight as of 12/04/2024 was 239Lbs and the most recent as of 12/25/2024 was 234Lbs Patient wants to get down to at least 175Lbs or as much as she can to function better. She also wants to improve her health and physical condition. PT is implementing the following: Current meal plan: 2 protein shakes, 2 protein bars, and one meal per day. Exercise plan: stationary bike. Scale: yes. Communication w/ provider: yes, Wednesdays. History/Relationship with food She was never used to having 3 meals a day, would eat when hungry. As an adult, she could go 2-3 days without formal meals as she was not hungry. During these times, she was thin and at a healthy weight. PT reported she noticed a pattern of stress eating while working after she developed medical issues. in the last 10 years of work, she was more steady with her meals, having at least breakfast and dinner every day, but since she worked 10Hr at day, she noticed she was snacking more. Example of meals before starting the program: Breakfast: 8 am (Coffee w/ a Frisian or blueberry pancakes, she likes something sweet for breakfast) Lunch: skips or a piece of cheese. Dinner: 6.30 pm (chicken/steak/meatloaf, with salad or a vegetable and a starch) Snacks: 1.30 pm (cheese, peanut butter) Beverages: Coffee: (1 cup/d with 2 tsp of sugar and cream). Tea: none. Soda: none. Juice: 1 cup at day of sugar free apple juice or orange juice. ETOH: 2 drinks at day, 1 shots of Vodka with juice. History/Relationship with weight PT reported she was at a healthy weight since childhood, and was a very thin person. Started gaining weight around age 59. Then, 7 years ago, she had breast cancer, and then started having back issues, which contributed to her becoming less active due to physical challenges. In the last 10 years, the patient's Lowest weight was 145Lbs and the highest 253Lbs. History/Relationship with dieting Exercise and self-diet. Binge Eating Do you frequently eat large amounts of food in short periods of time, not feeling physically hungry? No Do you feel out of control when you eat a large amount of food in a short period of time? No Do you eat large amounts of food rapidly and typically alone? No Night Eating Do you wake up at least once during the night to eat? No If you wake up in the night, do you find that it is necessary to eat something in order to fall back asleep? No Do you have little or no appetite in the morning and feel very hungry in the evening, often overeating between dinner and when you go to bed? No Social History Family history and relationship PT is , she has 2 sons from a previous relationship, and her has 3 children. They have 5 grandchildren. Both parents and most uncles and aunts have passed. 2 Brothers are also , and she has 4 brothers alive. PT reports she has good family relationships overall. 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 Developmental history and status WNL. Social support , close friends, 1 pf her brothers. Community support None. Catholic/Spirituality Baptised as a pentecostalism, but she raised her children as Catholics. She considers Religious. Cultural/Ethnic information . Legal Involvement and History Current or historical involvement with the legal system? None reported. Education Highest grade completed 2 years of college. Preferred learning style Auditory and Visual Currently enrolled in educational program? No Interested in further educational program? No Educational Interests/Skills Healthcare. 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 Employment Employment Status Retired (Retired in April/2024.) Wants help to find employment? No Meaningful activities paint, listen to music, play piano Financial Situation Describe current financial situation Comfortable Financial assistance? None Service Service? No Mental Health and Addiction Treatment Current/Past substance abuse? No Comments Alcohol: 1-2 drinks at dinner for couple months after senior living, currently 1-2 drinks at week. Cigarettes/Tobacco: 2-3 at day, daily. Working on decreased. Cannabis/Edibles: None. Current/Past addictive behavior concerns? No Psychiatric history The patient reports a history of anxiety and past panic attacks, for which she currently takes lorazepam 1 mg daily. She notes that she has not experienced panic attacks in several years. She is followed by a psychiatrist every two months for medication management but has never participated in counseling or psychotherapy. There is no history of inpatient psychiatric treatment or mental health crises. She denies any history or current concerns regarding suicidal ideation, suicide attempts, self-harm, or harm to others. Medical and Physical Health Summary Additional Medical History not covered in history Polycythemia Sexual History concerns None reported Physical exam in the last year? Yes Pain Screening Current pain? Yes Pain in the last few months? Yes Comments Lower back pain due to Spinal stenosis Medications Is the patient compliant with medications? Yes (Stopped zepbound. ) Does the patient have Hogan Guardian in place? Not applicable Does the patient use complimentary health approaches? No (Thinking about going back to a chiropractor for back issues, also does massage therapy once in a while. ) Trauma/Abuse History History of trauma? No (LUKE score: 2) Questionnaires PHQ-9 Over the last 2 weeks, how often have you been bothered by any of the following problems? 1. Little interest or pleasure in doing things: not at all 2. Feeling down, depressed, or hopeless: not at all 3. Trouble falling or staying asleep, or sleeping too much: several days 4. Feeling tired or having little energy: not at all 5. Poor appetite or overeating: not at all 6. Feeling bad about yourself - or that you are a failure or have let yourself or your family down: not at all 7. Trouble concentrating on things, such as reading the newspaper or watching television: not at all 8. Moving or speaking so slowly that other people could have noticed. Or the opposite - being so fidgety or restless that you have been moving around a lot more than usual: several days (Anxious last week.) 9. Thoughts that you would be better off or of hurting yourself in some way: not at all Total score: 2 Depression Screening Interpretation: Positive Depression Screening Done: Yes 66770 - PHQ-9 Billing: Yes Source: Developed by Drs. Rajinder Mooney, Oksana BNicholas Doll and colleagues, with an educational fransisco from [employer]. Binge Eating Scale Group 1 A. I don't feel self-conscious about my wt. or body size when I'm with others. B. I feel concerned about how I look to others, but it normally does not make me fell disappointed with myself C. I do get self-conscious about my appearance and wt. which makes me feel disappointed in myself. D. I feel very self-conscious about my wt. and frequently I feel intense shame and disgust for myself. I try to avoid social contacts because of my self- consciousness. Response Group 1: C Group 2 A. I don't have any difficulty eating slowly in the proper manner. B. Although I seem to gobble down foods, I don't end up feeling stuffed because of eating to much. C. At times, I tend to eat quickly and then, I feel uncomfortably full afterwards. D. I have the habit of bolting down my food, without really chewing it. When this happens I usually feel uncomfortably stuffed because I've eaten to much. Response Group 2: C Group 3 A. I feel capable to control my eating urges when I want to. B. I feel like I have failed to control my eating more than the average person. C. I feel utterly helpless when it comes to feeling in control of my eating urges. D. Because I feel so helpless about controlling my eating I have become very desperate about trying to get control. Response Group 3: B Group 4 A. I don't have the habit of eating when I'm bored. B. I sometimes eat when I'm bored, but often I'm able to get busy and get my mind off food. C. I have a regular habit of eating when I'm bored, but occasionally, I can use some other activity to get my mind off eating. D. I have a strong habit of eating when I'm bored. Nothing seems to help me breath the habit. Response Group 4: C Group 5 A. I'm usually physically hungry when I eat something. B. Occasionally, I eat something on impulse even though I really am not hungry. C. I have the regular habit of eating foods, that I might not really enjoy, to satisfy a hungry feeling even though physically, I don't need the food. D. Although I'm not physically hungry, I get a hungry feeling in my mouth that only seems to be satisfied when I eat a food, like sandwich, that fills my mouth. Sometimes, when I eat the food to satisfy my mouth hunger, I then spit the food out so I won't gain weight. Response Group 5: B Group 6 A. I don't feel any guilt or self-hate after I overeat. B. After I overeat, occasionally I feel guilt or self-hate. C. Almost all the time I experience strong guilt or self-hate after I overeat. Response Group 6: B Group 7 A. I don't lose total control of my eating when dieting even after periods when I overeat. B. Sometimes when I eat a forbidden food on a diet, I feel like I blew it and eat even more. C. Frequently, I have the habit of saying to myself, I've blown it now, why not go all the way, when I overeat on a diet. When that happens I eat more. D. I have a regular habit of starting a strict diets for myself but I break the diets by going on an eating binge. My life seems to be either a feast or famine. Response Group 7: A Group 8 A. I rarely eat so much food that I feel uncomfortably stuffed afterwards. B. Usually about once a month, I each such a quantity of food, I end up feeling very stuffed. C. I have regular periods during the month when I eat large amounts of food, either at mealtime or at snacks. D. I eat so much food that I regularly feel quite uncomfortable after eating and sometimes a bit nauseous. Response Group 8: B Group 9 A. My level of calorie intake does not go up very high or go down very low on a regular basis. B. Sometimes after I overeat, I will try to reduce my caloric intake to almost nothing to compensate for the excess calories I've eaten. C. I have a regular habit of overeating during the night. It seems that my routine is not to be hungry in the morning but overeat in the evening. D. In my adult years, I have had week-long periods where I practically starve myself. This follows periods when I overeat. It seems I live a life of either feast or famine. Response Group 9: B Group 10 A. I usually am able to stop eating when I want to. I know when enough is enough. B. Every so often, I experience a compulsion to eat which I can't seem to control. C. Frequently, I experience strong urges to eat which I seem unable to control, but at other times I can control my eating urges. D. I feel incapable of controlling urges to eat. I have a fear of not being able to stop eating voluntarily. Response Group 10: B Group 11 A. I don't have any problem stopping eating when I feel full. B. I usually can stop eating when I feel full but occasionally overeat leaving me feeling uncomfortably stuffed. C. I have a problem stopping eating once I start and usually I feel uncomfortably stuffed after I eat a meal. D. Because I have a problem not being able to stop eating when I want, I sometimes have to induce vomiting to relieve my stuffed feeling. Response Group 11: B Group 12 A. I seem to eat just as much when I'm with others, Family social gatherings as when I'm by myself. B. Sometimes, when I'm with other persons, I don't eat as much as I want to eat because I'm self-conscious about my eating. C. Frequently, I eat only a small amount of food when others are present, because I'm very embarrassed about my eating. D. I feel so ashamed about overeating that I pick times to overeat when I know no one will see me. I feel like a closet eater. Response Group 12: A Group 13 A. I eat three meals a day with only an occasional between meal snack. B. I eat 3 meals a day, but I also normally snack between meals. C. When I am snacking heavily, I get in the habit of skipping regular meals. D. There are regular periods when I seem to be continually eating, with no planned meals. Response Group 13: C Group 14 A. I don't think much about trying to control unwanted eating urges. B. At least some of the time, I feel my thoughts are pre-occupied with trying to control my eating urges. C. I feel that frequently I spend much time thinking about how much I ate or about trying not to eat anymore. D. It seems to me that most of my waking hours are pre-occupied by thoughts about eating or not eating. I feel like I'm constantly struggling not to eat. Response Group 14: A Group 15 A. I don't think about food a great deal. B. I have strong craving for food but they last only for brief periods of time. C. I have days when I can't seem to think about anything else but food. D. Most of my days seem to be pre-occupied with thoughts about food. I feel like I live to eat. Response Group 15: B Group 16 A. I usually know whether or not I'm physically hungry. I take the right portion of food to satisfy me. B. Occasionally, I feel uncertain about knowing whether or not I'm physically hungry. A these times it's hard to know how much food I should take to satisfy me. C. Even though I might know how many calories I should eat, I don't have any idea what is a normal amount of food for me. Response Group 16: C Binge Eating Score: 18 Score less than 17 Minimal Risk Score between 18-26 Moderate Risk Score between 27-46 High Risk Assessment & Plan Assessment & Plan (1) Anxiety: Code(s): F41.9 - Anxiety disorder, unspecified (2) Pre-bariatric surgery psychological evaluation: Code(s): Z71.89 - Other specified counseling Plan Following a comprehensive behavioral health assessment?including review of the Binge Eating Scale, PHQ-9, mental status evaluation, and patient self- report?there are currently no behavioral health contraindications to proceeding with bariatric surgery. The patient demonstrates appropriate insight, motivation, and psychological readiness for the procedure. No active psychiatric symptoms or maladaptive eating behaviors were identified that would impede surgical outcomes at this time. The patient is cleared from a behavioral health perspective to proceed with bariatric surgery and documentation can be submitted for insurance approval as indicated. PT will return for a follow-up behavioral health visit 1?4 weeks postoperatively to monitor psychological adjustment, reinforce coping strategies, and screen for any emerging concerns such as mood changes, adjustment difficulties, or disordered eating patterns. Additional behavioral health support will be provided as needed based on postoperative assessment. Next ashley: 1-4 weeks PO. Telehealth Telehealth Telehealth Platform: [employer] Location of provider rendering services: other (Home office. [place], [place]) Location of patient: address on file Patient Identification confirmed using: Name, : Yes Telehealth method: voice only Patient verbally consented to treatment: Yes Patient verbally consented to billing insurance company: Yes Patient informed of any privacy concerns related to visit: Yes Minutes spent on Phone/Video with Pt.: 60 Coding Level of Care Code Established Pt Tele Psytx >53 mins (83149) Patient Type Established Diagnoses Anxiety F41.9 Pre-bariatric surgery psychological evaluation Z71.89 Additional Codes PHQ-9 - 97421 - PHQ-9 Billing: Yes ([id number]) Time Spent (min) 60
--- OUTSIDE RECORDS SUMMARY | 2024-12-31 15:16 | XMS_ITS | Patient Health Record ---
Author Organization [facility] Address [address] [place] [address] Care Team Providers Care Room Service Manager Name Role Phone Deandra Vaughn Primary Care [...] Problem Status W/U Status Risk Notes Problem [id number] Colon cancer screening (Z12.11) Active confirmed Problem [id number] Bloating (R14.0) Active confirmed Problem Gastroesophageal reflux disease (539435022) GERD (gastroesophageal reflux disease) (K21.9) Active confirmed Problem [id number] Gastroesophageal reflux disease, unspecified whether esophagitis present (K21.9) Active confirmed Plan Of Treatment Future Test Test Name Order Date UPPER GI ENDOSCOPY 01/04/2023 COLONOSCOPY 01/04/2023 Insurance Providers Payer Name Payer Address Payer Phone Subscriber Number Group Number Insured Name Patient Relationship to Insured Coverage Start Date Coverage End Date [employer] (No Referra l) [address] [address] [place] [address] [id number] PIYUSH DEE Self - patient is the insured Medical (General) History Medical History History ICD Code Hypertension Hyperlipidemia Left breast cancer, XRT and hormonal the rapy Polycythemia Anxiety Recent seizures, MRI of the brain pendin g Colonoscopy 07/25/08, hyperplastic polyps x2, ten-year followup Surgical History Surgery Date(Month/Year) Left breast cancer, lumpectomy/axillary node dissection 08/02 Cholecystectomy 10/07
--- OUTSIDE RECORDS SUMMARY | 2024-12-31 15:16 | XMS_ITS | Patient Health Record ---
Author Organization Rajinder Guerrero III, MD Address [address] [place] [address] Care Team Providers Care Preschool Special Education Teacher Name Role Phone Roderick TAPIA, [facility] Primary Care Provider Rajinder Camargo Unavailable [phone] Allergies Allergen (clinical drug ingredient) Drug/Non Drug Allergy documented on EMR Reaction Allergy Type Onset Date Status No Known Drug Allergy Unknown Drug Allergy Active Results Component Value Reference Range Notes Complete Blood Count Auto Di ff Reviewed date:01/29/2024 07:10:24 AM Interpretation: Performing Lab:[facility], [address] [place] [address] Notes/Report: White Blood Count 9.9 4.8-10.8 X10*3/uL [...] Phlebotomy Reviewed date:01/29/2024 07:10:24 AM Interpretation: Performing Lab:[facility], [address] [place] [phone] Notes/Report: THER/HGB TNP 12.0-16.0 g/dL Lab Results on file. Performed at [facility] on 01/24/24: Hgb: 14.3 g/dl Hct: 43.6 % THER/HCT TNP 37.0-47.0 % Therapeutic Phlebotomy Phlebotomy Performed 500 mls drawn on 01/24/24. Please note that a copy of this report has been sent to the Primary Care Physician, the ordering physician and any physician designated by patient request. Complete Blood Count Auto Di ff Reviewed date:04/08/2024 06:11:33 AM Interpretation: Performing Lab:[facility], [address] [place] [phone] Notes/Report: White Blood Count 11.0 4.8-10.8 X10*3/uL [...] Phlebotomy Reviewed date:04/08/2024 06:11:33 AM Interpretation: Performing Lab:[address] [phone] Notes/Report: THER/HGB TNP 12.0-16.0 g/dL Lab Results on file. Performed at [facility] on 03/26/24: Hgb: 13.5 g/dl Hct: 41.7 % THER/HCT TNP 37.0-47.0 % Therapeutic Phlebotomy Phlebotomy Performed 500 mls drawn on 03/26/24. Please note that a copy of this report has been sent to the Primary Care Physician, the ordering physician and any physician designated by patient request. Complete Blood Count Auto Di ff Reviewed date:06/09/2024 09:13:32 AM Interpretation: Performing Lab:[facility], [address] [place] [phone] Notes/Report: White Blood Count 8.9 4.8-10.8 X10*3/uL [...] Phlebotomy Reviewed date:06/09/2024 09:13:32 AM Interpretation: Performing Lab:[facility], [address] [place] [phone] Notes/Report: THER/HGB TNP 12.0-16.0 g/dL Lab Results on file. Performed at [facility] on 05/28/24: Hgb: 13.1 g/dl Hct: [...] ff Reviewed date:08/03/2024 07:24:43 AM Interpretation: Performing Lab:[facility], [address] [place] [phone] Notes/Report: White Blood Count 8.5 4.8-10.8 X10*3/uL [...] Phlebotomy Reviewed date:08/03/2024 07:24:43 AM Interpretation: Performing Lab:[facility], [address] [place] [phone] Notes/Report: THER/HGB TNP 12.0-16.0 g/dL Lab Results on file. Performed at [facility] on 07/30/24: Hgb: 12.5 g/dl Hct: [...] ff Reviewed date:10/02/2024 01:20:13 PM Interpretation: Performing Lab:[facility], [address] [place] [phone] Notes/Report: White Blood Count 8.6 4.8-10.8 X10*3/uL [...] Phlebotomy Reviewed date:10/02/2024 01:20:13 PM Interpretation: Performing Lab:[facility], [address] [place] [phone] Notes/Report: THER/HGB TNP 12.0-16.0 g/dL Lab Results on file. Performed at [facility] on 10/01/24: Hgb: 12.1 g/dl Hct: [...] ff Reviewed date:12/02/2024 01:40:01 PM Interpretation: Performing Lab:[facility], [address] [place] [phone] Notes/Report: White Blood Count 8.0 4.8-10.8 X10*3/uL [...] Phlebotomy Reviewed date:12/02/2024 01:40:01 PM Interpretation: Performing Lab:[facility], [address] [place] [phone] Notes/Report: THER/HGB TNP 12.0-16.0 g/dL Lab Results on file. Performed at [facility] on 12/02/24: Hgb: 12.1 g/dl Hct: [...] Problem Status W/U Status Risk Notes Problem 494771022 Obesity (E66.9) Active confirmed Her body mass index is 40. We discussed her diet and nutrition. We made a plan to lose weight at a rate of one half of a pound per week. Problem Postmenopausal state (48793346) Post-menopausal (Z78.0) Active confirmed She has not had a period in several years. Problem Polycythemia vera (109663823) Polycythemia vera (D45) Active confirmed Her polycythemia is stable and her hematocrit is in the normal range. She will have the CBC done every 2 months instead of one now that she is stable. She will avoid taking iron-containin g medications. Problem 04000861 Iron deficiency (E61.1) Active confirmed She is no longer anemic and a mean cell volume is macrocytic. She'll be observed carefully. The iron will be continued. Comprehensive blood work with a ferritin has been ordered.She has been phlebotomize continuously. Close observation will occur and. Treatment used if necessary. Problem 962718391 Raynaud's syndrome without gangrene (I73.00) Active confirmed No further episodes of Raynaud's syndrome have occurred since her last visit. Problem 72092862 Tobacco dependence (F17.200) Active confirmed She continues to smoke and I have made her aware of the health consequences doing so. I have referred her to the smoking cessation program at [facility]. Problem 961319048 Erythrocytosis (D75.1) Active confirmed She will continue the phlebotomy if needed. At this time her hematocrit and hemoglobin are normal. Currently, the increased red cell mass is well controlled. 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 There was no sign of metastatic disease or recurrence today. Her anastrozole was continued. Problem 911782264 Lobular carcinoma of left breast, stage 1 [...] Provider Diagnosis Rajinder Guerrero III, MD [address] [place] [address] [place] [address] 04/18/2024 Rajinder Guerrero Iron deficiency E61. 1 ; Polycythemia vera D45 ; Celiac disease K90.0 ; Tobacco dependence F17.200 ; Raynaud's syndrome without gangrene I73.00 ; Malignant neoplasm of upper-outer quadrant of left female breast, 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 and Morbid obesity E66.01 Rajinder Guerrero III, MD [address] [place] [address] [place] [address] 10/17/2024 Rajinder Guerrero Iron deficiency E61. 1 ; Polycythemia vera D45 ; Tobacco dependence F17.200 ; Malignant neoplasm of upper-outer quadrant of left female breast, 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 and Morbid obesity E66.01 Rajinder Guerrero III, MD [address] [place] [address] [place] [phone] 12/10/2024 Rajinder Guerrero Assessments Encounter Date Diagnosis [...] her to the smoking cessation program at [facility]. 04/18/2024 Tobacco dependence (ICD-10 - F17.200) She continues to smoke and I have made her aware of the health consequences doing so. I have referred her to the smoking cessation program at [facility]. 10/17/2024 Malignant neoplasm of upper-outer quadrant [...] Details Provider Name:Rajinder Guerrero, 02/21/2025 09:00:00 AM, [address] [place] [address] DR, [address], [place], [address], Insurance Providers Payer Name Payer Address Payer Phone Subscriber Number Group Number Insured Name Patient Relationship to Insured Coverage Start Date Coverage End Date AET[employer] [address] [place] [phone] [id number] Larisa Dee Self - patient is the insured MEDICARE NGS [address] [place] [phone] [id number] Larisa Dee Self - patient is the insured Medical (General) History Medical History History ICD Code history of iron deficiency celiac disease bunion left foot history of herpes zoster erythrocytosis episode of Raynaud's syndrome October invasive lobular carcinoma, l eft breast,ER+SC+Her-,8mm,N0 Left breast cancer in 2018, Gallbladder surgery in the past June 2017 invasive lobular carcinoma, l eft breast,ER+SC+Her-,8mm Surgical History Surgery Date(Month/Year) Gallbladder surgery Cholecystectomy 09/2022 drainage tonsillar abscess 12/2018 left breast lumpectomy,SN, invasive lobu lar carcinoma 06/2017 Hospitalization History Reason Date(Month/Year) No history tonsilitis 09/2021
== END 2024-12-31 12:26 | disposition home or self-care (01) ==
LOC: HO.HBST 11:09
PROVIDERS: PCP Internal Medicine; Visit Provider Counselor Mental Health
DX: F41.9 Anxiety disorder, unspecified (principal); Z71.89 Other specified counseling
CPT/HCPCS: 90837

== ENCOUNTER 2025-01-03 07:47 | Outpatient (REF) | payer MEDICARE, SELFPAY ==
--- OUTSIDE RECORDS SUMMARY | 2023-09-22 11:00 | XMS_ITS ---
Author Organization Rajinder Guerrero III, MD Address [address] [place] [address] Care Team Providers Care Brake Cou[address] Freight Name Role Phone Roderick TAPIA, [facility] Primary Care Provider Rajinder Camargo Unavailable [phone] Allergies Allergen (clinical drug ingredient) Drug/Non Drug [...] W/U Status Risk Notes Problem Polycythemia vera ([id number]) Polycythemia vera (D45) Active confirmed Her polycythemia [...] Date Provider Diagnosis Rajinder Guerrero III, MD [address] [place] [address] [place] [address] 09/22/2023 Rajinder Guerrero Iron deficiency E61. 1 [...] her to the smoking cessation program at [facility]. 09/22/2023 Polycythemia vera (ICD-10 [...] OV Provider Name:Rajinder Guerrero, 02/21/2025 09:00:00 AM, [address] [place] [address], [place] [address], [place], [address], Progress Notes * LUIZ TamaraoscarDOB:1955 (68 yo F)Acc No.[id number]:09/22/2023 Progress Notes Patient: Larisa Conklin Provider: Oliva Guerrero MD :1955 A ge:68 Y S ex:Female Date:09/22/2023 Address:[address] [place], [place] [phone] Pcp:Deandra Vaughn MD Subjective: * Chief Complaints: [...] x-cigarette smoker S he was born in [place] and is . She has 2 sons and works at [employer] in [place]. * Medications: T akingLORazepam 1 MG Tablet [...] - 09/20/2023) (Collection Date - 09/20/2023)? ValueReference Range?[id number] - ng/mL * Examination: G eneral Examination: [...] her to the smoking cessation program at [facility]. 4. P olycythemia vera [...] 09/22/2023 Generated for Jannie stover/Baljit/Katerineitting on: 0 01/03/2025 07:49 AM EDT History and Physical Notes * HPI (History of Present Illness) Category Sub-Category Detail Notes COVID-19 Screening Questions Have you had any new onset fever, chills, cough, congestion, sore throat, shortness of breath, muscle aches?: No Have you been exposed to the virus withi n the last 10 days?: No Have you travelled internationally in [facility] last 10 days?: No Have you been [...]
--- OUTSIDE RECORDS SUMMARY | 2024-03-25 14:15 | XMS_ITS ---
Author Organization Rajinder Guerrero III, MD Address [address] [place] [address] [address] [facility] [address] Care Team Providers Care Government Service Executive Name Role Phone Roderick TAPIA, Deandra Primary Care Provider Rajinder Camargo Unavailable [phone] REASON FOR VISIT Follow-up Social History Sex Assigned At : Social History Observation Description Sex Assigned At Female Encounters Encounter Location Date Provider Diagnosis Rajinder Guerrero III, MD [address] [place] [address] [address] [facility] [place] [address] 03/25/2024 Rajinder Guerrero Plan Of Treatment Next Appt Details Provider Name:Rajinder Guerrero, 02/21/2025 09:00:00 AM, [address] [place] [address] [place], [address], Progress Notes * Larisa DEEDOB:1955 (69 yo F)Acc No.[id number]:03/25/2024 Progress Notes Patient: Larisa BATES Provider: Oliva Guerrero MD :1955 A ge:69 Y S ex:Female Date:03/25/2024 Address:[address] [place], [place] [address] [id number] Pcp:Deandra Vaughn MD Subjective: * Chief Complaints: [...] 05/26/2023 Generated for Jannie stover/Baljit/Annalise on: 0 01/03/2025 07:50 AM EDT
--- OUTSIDE RECORDS SUMMARY | 2024-04-18 05:00 | XMS_ITS ---
Author Organization Rajinder Guerrero III, MD Address [address] [place] [address] Care Team Providers Care Diagnostic Assistant Name Role Phone Roderick TAPIA, [facility] Primary Care Provider Rajinder Camargo Unavailable [phone] Allergies Allergen (clinical drug ingredient) Drug/Non Drug [...] Date Provider Diagnosis Rajinder Guerrero III, MD [address] [place] [address] [place] [address] 04/18/2024 Rajinder Guerrero Iron deficiency E61. 1 [...] her to the smoking cessation program at [facility]. 04/18/2024 Raynaud's syndrome without gangrene [...] follow-up Provider Name:Rajinder Guerrero, 02/21/2025 09:00:00 AM, [address] [place] [address], [address], [address], Progress Notes * LUIZ LarisaDOB:1955 (69 yo F)Acc No.[id number]:04/18/2024 Progress Notes Patient: Larisa BATES Provider: Oliva Guerrero MD :1955 A ge:69 Y S ex:Female Date:04/18/2024 Address:[address] [place], [place] [phone] Pcp:Deandra Vaughn MD Subjective: * Chief Complaints: [...] N egative S he was born in [place] and is . She has 2 sons and works at [email or web address] in [place]. Smoking: Occasional, Exercise: Uses an exercise bike. [...] her to the smoking cessation program at [facility]. 5 . R aynaud's syndrome [...] 04/18/2024 Generated for Jannie stover/Baljit/Annalise on: 0 01/03/2025 07:49 AM EDT History [...]
--- OUTSIDE RECORDS SUMMARY | 2024-10-17 05:15 | XMS_ITS ---
Author Organization Rajinedr Guerrero III, MD Address [address] [place] [address] Care Team Providers Care Tablet Making Machine Operator Name Role Phone Roderick TAPIA, [facility] Primary Care Provider Rajinder Camargo Unavailable [phone] Allergies Allergen (clinical drug ingredient) Drug/Non Drug [...] Date Provider Diagnosis Rajinder Guerrero III, MD [address] [place] [address] [place] [address] 10/17/2024 Rajinder Guerrero Iron deficiency E61. 1 [...] her to the smoking cessation program at [facility]. 10/17/2024 Malignant neoplasm of upper-outer quadrant [...] OV Provider Name:Rajinder Rodriguesne, 02/21/2025 09:00:00 AM, [address] [place] [address] SATYA CONNOLLY, [place], [address], Progress Notes * Larisa DEEDOB:1955 (69 yo F)Acc No.[id number]:10/17/2024 Progress Notes Patient: Larisa BATES Provider: Oliva Guerrero MD :1955 A ge:69 Y S ex:Female Date:10/17/2024 Address:[address] [place] [address] [id number] Pcp:Deandra Vaughn MD Subjective: * Chief Complaints: [...] urrent smoker S he was born in [place] and is . She has 2 sons and works at [employer] in [place]. Smoking: Occasional, Exercise: Uses an exercise bike. [...] her to the smoking cessation program at [facility]. 4 . M alignant neoplasm of [...] MD Date: 0 10/17/2024 Generated for Cintiai jolanta/Baljit/Malinismitting on: 0 01/03/2025 07:50 AM EDT History and Physical Notes * [...]
--- OUTSIDE RECORDS SUMMARY | 2024-12-10 12:32 | XMS_ITS ---
Author Organization Rajinder Guerrero III, MD Address [address] [place] [address] [place] [address] Care Team Providers Care Watch Repair Person Name Role Phone Roderick TAPIA, [facility] Primary Care Provider Rajinder Camarog Unavailable [phone] REASON FOR VISIT FYI only Social History Sex Assigned At : Social History Observation Description Sex Assigned At Female Encounters Encounter Location Date Provider Diagnosis Rajinder Guerrero III, MD [address] [place] [address] [address] [facility] [place] [address] 12/10/2024 Rajinder Guerrero Plan Of Treatment Next Appt Details Provider Name:Rajinder Guerrero, 02/21/2025 09:00:00 AM, [address] [place] [address] SATYA CONNOLLY, [place], [address], Progress Notes * Larisa DEEDOB:1955 (69 yo F)Acc No.[id number]:12/10/2024 Patient: Jj CONROY Larisa :1955 A ge:69 Y S ex:Female Address:[address] [place], [place] [address] [address] * true * Date: Generated for Printi ng/Faxing/eTransmitting on: 0 01/03/2025 07:49 AM EDT
--- NOTE | ~2025-01-03 | US_ITS ---
EXAMINATION: US ABDOMEN COMPLETE WITH LIVER ELASTOGRAPHY HISTORY: E66.01 - Morbid (severe) obesity due to excess calories TECHNIQUE: Real-time grayscale ultrasound imaging of the abdomen was performed and images were reviewed. COMPARISON: Correlation is made with an unenhanced CT of the abdomen dated 09/19/2022. FINDINGS: Liver: The right lobe of the liver measures 15.7 cm in size. The left lobe of the liver measures 10.9 cm in size. The liver demonstrates mildly increased echotexture, consistent with steatosis. No focal mass or intrahepatic biliary ductal dilatation is identified. There is normal hepatopedal flow in the portal vein. Ultrasound elastography of the liver was performed with 10 separate measurements of the liver parenchyma with the patient in the supine position. Measurements were obtained approximately 2 cm below Francois's capsule and perpendicular to the capsule. The median shear wave velocity is 1.67 m/s. The interquartile range/median (IQR/median) is 0.05. Gallbladder and biliary tree: The gallbladder is surgically absent. The common bile duct is normal in caliber measuring 7 mm. Kidneys: The right kidney measures 12.1 cm in length and demonstrates mild calyceal prominence. The left kidney measures 11.8 cm in length and demonstrates a 1.2 cm cyst in the interpolar region. The kidneys are otherwise unremarkable, without evidence of solid masses, hydronephrosis, or calculi. Pancreas: The pancreatic head, neck, and body are unremarkable. The pancreatic tail is obscured by bowel gas. Spleen: The spleen is normal in size and contour, measuring 9.4 cm in length. Abdominal aorta and inferior vena cava: The visualized portions of the abdominal aorta and inferior vena cava are normal in caliber. There is no free fluid in the abdomen. US/US abdomen comp w elastography IMPRESSION: Mild hepatic steatosis. The median shear wave velocity in the liver is 1.67 m/s, corresponding to a median liver stiffness of 8.43 kPa. The IQR/median value is 0.05. This is indicative of a quality data set. Findings are indicative of a low elastography value which rules out advanced chronic liver disease in asymptomatic patients. REFERENCE: Society of Radiologists in Ultrasound Liver Stiffness Thresholds (2019): LIVER STIFFNESS THRESHOLDS: *Shear wave velocity less than 1.3 m/s (Liver Stiffness equal or less than 5 kPa): High probability of being normal. *Shear wave velocity less than 1.7 m/s (Liver Stiffness less than 9 kPa): In the absence of other known clinical signs, rules out compensated advanced chronic liver disease. *Shear wave velocity between 1.7-2.1 m/s (Liver Stiffness 9-13 kPa): Suggestive of compensated advanced chronic liver disease but need further test for confirmation. *Shear wave velocity between 2.1-2.4 m/s (Liver Stiffness 13-17 kPa): Rules in compensated advanced chronic liver disease. *Shear wave velocity greater than 2.4 m/s (Liver Stiffness over 17 kPa): Suggestive of clinically significant portal hypertension. QUALITY OF DATA SET: *IQR/Median value equal or less than 0.15 implies a quality data set. *IQR/Median value over 0.15 implies a poor quality data set. SIGNIFICANT CHANGE FROM PRIOR EXAM: Significant change if liver stiffness measurement is 10% or greater from prior exam. OTHER CONSIDERATIONS: The stage of liver fibrosis may be overestimated in the setting of acute hepatitis, liver inflammation, elevated liver function tests, hepatic vascular congestion, obstructive cholestasis, non-fasting state, and infiltrative diseases such as amyloidosis and lymphoma. In some patients with NAFLD, the liver stiffness thresholds for compensated advanced chronic liver disease may be lower. In causes other than viral hepatitis and NAFLD, liver stiffness thresholds are not well established. Electronically signed by: Rajinder Olson MD 01/03/2025 09:23 AM EDT
--- OUTSIDE RECORDS SUMMARY | 2025-01-03 07:50 | XMS_ITS | Patient Health Record ---
Author Organization [facility] Address [address] [place] [address] Care Team Providers Care Regional Ehs Manager Name Role Phone Deandra Vaughn Primary [...] Problem Status W/U Status Risk Notes Problem 740123365 Colon cancer screening (Z12.11) Active confirmed Problem 123362038 Bloating (R14.0) Active confirmed Problem Gastroesophageal reflux disease (809403473) GERD (gastroesophageal reflux disease) (K21.9) Active confirmed Problem 514089919 Gastroesophageal reflux disease, unspecified whether esophagitis present (K21.9) Active confirmed Plan Of Treatment Future Test Test Name Order Date UPPER GI ENDOSCOPY 01/04/2023 COLONOSCOPY 01/04/2023 Insurance Providers Payer Name Payer Address Payer Phone Subscriber Number Group Number Insured Name Patient Relationship to Insured Coverage Start Date Coverage End Date [employer] (No Referra l) [address] [address] [place] [address] [id number] PIYUSH DEE Self - patient is the insured Medical (General) History Medical History History ICD Code Hypertension Hyperlipidemia Left breast cancer, XRT and hormonal the rapy Polycythemia Anxiety Recent seizures, MRI of the brain pendin g Colonoscopy 07/25/08, hyperplastic polyps x2, ten-year followup Surgical History Surgery Date(Month/Year) Left breast cancer, lumpectomy/axillary node dissection 08/02 Cholecystectomy 10/07
--- OUTSIDE RECORDS SUMMARY | 2025-01-03 07:50 | XMS_ITS | Patient Health Record ---
Author Organization Rajinder Guerrero III, MD Address [address] [place] [address] Care Team Providers Care Sporting Goods Sales Associate Name Role Phone Roderick TAPIA, [facility] Primary Care Provider Rajinder Camargo Unavailable [phone] Allergies Allergen (clinical drug ingredient) Drug/Non Drug Allergy documented on EMR Reaction Allergy Type Onset Date Status No Known Drug Allergy Unknown Drug Allergy Active Results Component Value Reference Range Notes Complete Blood Count Auto Di ff Reviewed date:01/29/2024 07:10:24 AM Interpretation: Performing Lab:[facility], [address] [place] [address] Notes/Report: White Blood Count 9.9 4.8-10.8 X10*3/uL [...] Phlebotomy Reviewed date:01/29/2024 07:10:24 AM Interpretation: Performing Lab:[facility], [address] [place] [phone] Notes/Report: THER/HGB TNP 12.0-16.0 g/dL Lab Results on file. Performed at [facility] on 01/24/24: Hgb: 14.3 g/dl Hct: 43.6 % THER/HCT TNP 37.0-47.0 % Therapeutic Phlebotomy Phlebotomy Performed 500 mls drawn on 01/24/24. Please note that a copy of this report has been sent to the Primary Care Physician, the ordering physician and any physician designated by patient request. Complete Blood Count Auto Di ff Reviewed date:04/08/2024 06:11:33 AM Interpretation: Performing Lab:[facility], [address] [place] [phone] Notes/Report: White Blood Count 11.0 4.8-10.8 X10*3/uL [...] Phlebotomy Reviewed date:04/08/2024 06:11:33 AM Interpretation: Performing Lab:[address] [address] Notes/Report: THER/HGB TNP 12.0-16.0 g/dL Lab Results on file. Performed at [facility] on 03/26/24: Hgb: 13.5 g/dl Hct: 41.7 % THER/HCT TNP 37.0-47.0 % Therapeutic Phlebotomy Phlebotomy Performed 500 mls drawn on 03/26/24. Please note that a copy of this report has been sent to the Primary Care Physician, the ordering physician and any physician designated by patient request. Complete Blood Count Auto Di ff Reviewed date:06/09/2024 09:13:32 AM Interpretation: Performing Lab:[facility], [address] [place] [phone] Notes/Report: White Blood Count 8.9 4.8-10.8 X10*3/uL [...] Phlebotomy Reviewed date:06/09/2024 09:13:32 AM Interpretation: Performing Lab:[facility], [address] [place] [phone] Notes/Report: THER/HGB TNP 12.0-16.0 g/dL Lab Results on file. Performed at [facility] on 05/28/24: Hgb: 13.1 g/dl [...] ff Reviewed date:08/03/2024 07:24:43 AM Interpretation: Performing Lab:[facility], [address] [place] [phone] Notes/Report: White Blood Count 8.5 4.8-10.8 X10*3/uL [...] Phlebotomy Reviewed date:08/03/2024 07:24:43 AM Interpretation: Performing Lab:[facility], [address] [place] [phone] Notes/Report: THER/HGB TNP 12.0-16.0 g/dL Lab Results on file. Performed at [facility] on 07/30/24: Hgb: 12.5 g/dl [...] ff Reviewed date:10/02/2024 01:20:13 PM Interpretation: Performing Lab:[facility], [address] [place] [phone] Notes/Report: White Blood Count 8.6 4.8-10.8 X10*3/uL [...] Phlebotomy Reviewed date:10/02/2024 01:20:13 PM Interpretation: Performing Lab:[facility], [address] [place] [phone] Notes/Report: THER/HGB TNP 12.0-16.0 g/dL Lab Results on file. Performed at [facility] on 10/01/24: Hgb: 12.1 g/dl [...] ff Reviewed date:12/02/2024 01:40:01 PM Interpretation: Performing Lab:[facility], [address] [place] [phone] Notes/Report: White Blood Count 8.0 4.8-10.8 X10*3/uL [...] Phlebotomy Reviewed date:12/02/2024 01:40:01 PM Interpretation: Performing Lab:[facility], [address] [place] [phone] Notes/Report: THER/HGB TNP 12.0-16.0 g/dL Lab Results on file. Performed at [facility] on 12/02/24: Hgb: 12.1 g/dl [...] Problem Status W/U Status Risk Notes Problem 372039418 Obesity (E66.9) Active confirmed Her body mass index is 40. We discussed her diet and nutrition. We made a plan to lose weight at a rate of one half of a pound per week. Problem Postmenopausal state (82734193) Post-menopausal (Z78.0) Active confirmed She has not had a period in several years. Problem Polycythemia vera (142374328) Polycythemia vera (D45) Active confirmed Her polycythemia is stable and her hematocrit is in the normal range. She will have the CBC done every 2 months instead of one now that she is stable. She will avoid taking iron-containin g medications. Problem 57785074 Iron deficiency (E61.1) Active confirmed She is no longer anemic and a mean cell volume is macrocytic. She'll be observed carefully. The iron will be continued. Comprehensive blood work with a ferritin has been ordered.She has been phlebotomize continuously. Close observation will occur and. Treatment used if necessary. Problem 082272542 Raynaud's syndrome without gangrene (I73.00) Active confirmed No further episodes of Raynaud's syndrome have occurred since her last visit. Problem 64816817 Tobacco dependence (F17.200) Active confirmed She continues to smoke and I have made her aware of the health consequences doing so. I have referred her to the smoking cessation program at [facility]. Problem 513429715 Erythrocytosis (D75.1) Active confirmed She will continue the phlebotomy if needed. At this time her hematocrit and hemoglobin are normal. Currently, the increased red cell mass is well controlled. Problem 874137705 Morbid obesity (E66.01) Active confirmed She has [...] neoplasm of upper-outer quadrant of female breast (816730966) Malignant neoplasm of upper-outer quadrant of left female breast, unspecified estrogen receptor status (C50.412) Active confirmed She continues with surveillance mammography and breast self examination. There was no sign of metastatic disease or recurrence today. Her anastrozole was continued. Problem 469434513 Lobular carcinoma of left breast, stage 1 [...] Date Provider Diagnosis Rajinder Guerrero III, MD [address] [place] [address] [place] [address] 04/18/2024 Rajinder Guerrero Iron deficiency E61. 1 ; Polycythemia vera D45 ; Celiac disease K90.0 ; Tobacco dependence F17.200 ; Raynaud's syndrome without gangrene I73.00 ; Malignant neoplasm of upper-outer quadrant of left female breast, 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 and Morbid obesity E66.01 Rajinder uGerrero III, MD [address] [place] [address] [place] [address] 10/17/2024 Rajinder Guerrero Iron deficiency E61. 1 ; Polycythemia vera D45 ; Tobacco dependence F17.200 ; Malignant neoplasm of upper-outer quadrant of left female breast, 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 and Morbid obesity E66.01 Rajinder Guerrero III, MD [address] [place] [address] [place] [address] 12/10/2024 Rajinder Guerrero Assessments Encounter Date Diagnosis [...] her to the smoking cessation program at [facility]. 04/18/2024 Tobacco dependence (ICD-10 - F17.200) She continues to smoke and I have made her aware of the health consequences doing so. I have referred her to the smoking cessation program at [facility]. 10/17/2024 Malignant neoplasm of upper-outer [...] Details Provider Name:Rajinder Guerrero, 02/21/2025 09:00:00 AM, [address] [place] [address] [address], [place], [address], Insurance Providers Payer Name Payer Address Payer Phone Subscriber Number Group Number Insured Name Patient Relationship to Insured Coverage Start Date Coverage End Date [employer] [address] [place] [phone] [id number] Larisa Dee Self - patient is the insured MEDICARE NGS [address] [place] [phone] [id number] Larisa Dee Self - patient is the insured Medical (General) History Medical History History ICD Code history of iron deficiency celiac disease bunion left foot history of herpes zoster erythrocytosis episode of Raynaud's syndrome October invasive lobular carcinoma, l eft breast,ER+AK+Her-,8mm,N0 Left breast cancer in 2018, Gallbladder surgery in the past June 2017 invasive lobular carcinoma, l eft breast,ER+AK+Her-,8mm Surgical History Surgery Date(Month/Year) Gallbladder surgery Cholecystectomy 09/2022 drainage tonsillar abscess 12/2018 left breast lumpectomy,SN, invasive lobu lar carcinoma 06/2017 Hospitalization History Reason Date(Month/Year) No history tonsilitis 09/2021
== END 2025-01-03 07:48 | disposition home or self-care (01) ==
LOC: HO.US 07:47
PROVIDERS: PCP Internal Medicine; Visit Provider Surgery
DX: E66.01 Morbid (severe) obesity due to excess calories (principal); E78.00 Pure hypercholesterolemia, unspecified; I10 Essential (primary) hypertension
CPT/HCPCS: 76700; 76981

== ENCOUNTER → 2025-01-03 07:48 | Outpatient (BNV) | payer MEDICARE, SELFPAY | PROVIDERS: PCP Internal Medicine; Visit Provider Radiology Diagnostic Radiology | DX: K76.0 Fatty (change of) liver, not elsewhere classified (principal) | CPT/HCPCS: 76700 ==

== ENCOUNTER → 2025-01-21 10:38 | Outpatient (REF) | payer MEDICARE, SELFPAY ==
--- OUTSIDE RECORDS SUMMARY | 2023-09-22 11:00 | XMS_ITS ---
Author Organization Rajinder Guerrero III, MD Address [address] [place] [address] Care Team Providers Care Electronics Parts Sales Representative Name Role Phone Roderick TAP[facility] [...] W/U Status Risk Notes Problem Polycythemia vera ([id number]) Polycythemia vera (D45) Active confirmed Her polycythemia [...] Date Provider Diagnosis Rajinder Guerrero III, MD [address] [place] [address] [place] [address] 09/22/2023 Rajinder Guerrero Iron deficiency E61. 1 [...] her to the smoking cessation program at [facility]. 09/22/2023 Polycythemia vera (ICD-10 - D45) [...] Provider Name:Rajinder Guerrero , 02/21/2025 09:00:00 AM, [address] [place] [address], [place] [address], [place], [address], Progress Notes * LUIZ TmaaraoscarDOB:1955 (68 yo F)Acc No.[id number]:09/22/2023 Progress Notes Patient: Larisa Conklin Provider: Oliva Guerrero MD :1955 A ge:68 Y S ex:Female Date:09/22/2023 Address:[address] [place], [place] [phone] Pcp:Deandra Vaughn MD Subjective: * Chief Complaints: [...] x-cigarette smoker S he was born in [place] and is . She has 2 sons and works at [employer] in [place]. * Medications: T akingLORazepam 1 MG Tablet [...] - 09/20/2023) (Collection Date - 09/20/2023)? ValueReference Range?[id number] - ng/mL * Examination: G eneral Examination: [...] her to the smoking cessation program at [facility]. 4. P olycythemia vera - D45, [...] 09/22/2023 Generated for Jannie stover/Baljit/Annalise on: 1 12:51 PM EDT History and Physical Notes * [...]
--- OUTSIDE RECORDS SUMMARY | 2024-03-25 14:15 | XMS_ITS ---
Author Organization Rajinder Guerrero III, MD Address [address] [place] [address] [place] [address] Care Team Providers Care Midwife Name Role Phone Roderick TAPIA, Deandra Primary Care Provider Dr. Rajinder Camargo III Unavailable REASON FOR VISIT Follow-up Social History Sex Assigned At : Social History Observation Description Sex Assigned At Female Encounters Encounter Location Date Provider Diagnosis Rajinder Guerrero III, MD [address] [place] [address] [address] [facility] [address] 03/25/2024 Rajinder Guerrero Plan Of Treatment Next Appt Details Provider Name:Rajinder Guerrero , 02/21/2025 09:00:00 AM, [address] [place] [address] [place], [address], Progress Notes * Larisa DEEDOB:1955 (69 yo F)Acc No.[id number]:03/25/2024 Progress Notes Patient: Larisa BATES Provider: Oliva Guerrero MD :1955 A ge:69 Y S ex:Female Date:03/25/2024 Address:[address] [place], [place] [address] [id number] Pcp:Deandra Vaughn MD Subjective: * Chief Complaints: * 1 . Follow-up. * Medical History: Objective: * Vitals: Assessment: Plan: * Treatment: * Images: * The named appointment provid er may or may not be the originator of this progress note, and it is not deemed complete until electronically signed by the appointment provider. Sign off status: Pending * Provider: Oliva Guerrero MD Date: 1 05/26/2023 Generated for Jannie stover/aBljit/Annalise on: 12:52 PM EDT
--- OUTSIDE RECORDS SUMMARY | 2024-04-18 05:00 | XMS_ITS ---
Author Organization Rajinder Guerrero III, MD Address [address] [place] [address] Care Team Providers Care Business Database Analyst Name Role Phone Roderick TAPIA, [facility] Primary Care Provider Dr. Rajinder Camargo III Unavailable [phone] Allergies Allergen (clinical drug ingredient) Drug/Non Drug [...] Provider Diagnosis Rajinder Guerrero III, MD [address] [place] [address] [place] [address] 04/18/2024 Rajinder Guerrero Iron deficiency E61. 1 [...] her to the smoking cessation program at [facility]. 04/18/2024 Raynaud's syndrome without gangrene (ICD-10 [...] Name:Rajinder Guerrero , 02/21/2025 09:00:00 AM, [address] [place] [address] [address] [address], [place], [address], Progress Notes * LUIZ LarisaDOB:1955 (69 yo F)Acc No.[id number]:04/18/2024 Progress Notes Patient: Larisa BATES Provider: Oliva Guerrero MD :1955 A ge:69 Y S ex:Female Date:04/18/2024 Address:[address] [place], [place] [phone] Pcp:Deandra Vaughn MD Subjective: * Chief Complaints: [...] N egative S he was born in [place] and is . She has 2 sons and works at [employer] in [place]. Smoking: Occasional, Exercise: Uses an exercise bike. [...] her to the smoking cessation program at [facility]. 5 . R aynaud's syndrome without [...] 0 04/18/2024 Generated for Jannie stover/Baljit/Annalise on: 12:51 PM EDT History and Physical Notes [...]
--- OUTSIDE RECORDS SUMMARY | 2024-10-17 05:15 | XMS_ITS ---
Author Organization Rajinder Guerrero III, MD Address [address] [place] [address] Care Team Providers Care Industrial Production Manager Name Role Phone Roderick TAPIA, [facility] Primary Care Provider Dr. Rajinder Camargo III Unavailable [phone] Allergies Allergen (clinical drug ingredient) Drug/Non Drug [...] Date Provider Diagnosis Rajinder Guerrero III, MD [address] [place] [address] [place] [address] 10/17/2024 Rajinder Rodriguesne Iron deficiency E61. 1 [...] her to the smoking cessation program at [facility]. 10/17/2024 Malignant neoplasm of upper-outer quadrant [...] Provider Name:Rajinder Rodriguesne , 02/21/2025 09:00:00 AM, [address] [place] [address] SATYA CONNOLLY, [place], [address], Progress Notes * Larisa DEEDOB:1955 (69 yo F)Acc No.[id number]:10/17/2024 Progress Notes Patient: Larisa BATES Provider: Oliva Guerrero MD :1955 A ge:69 Y S ex:Female Date:10/17/2024 Address:[address] [place], [place] [phone] Pcp:Deandra Vaughn MD Subjective: * Chief Complaints: [...] urrent smoker S he was born in [place] and is . She has 2 sons and works at [employer] in [place]. Smoking: Occasional, Exercise: Uses an exercise bike. [...] her to the smoking cessation program at [facility]. 4 . M alignant neoplasm of [...] 10/17/2024 Generated for Jannie stover/Baljit/Annalise on: 1 12:52 PM EDT History and Physical Notes * [...]
--- OUTSIDE RECORDS SUMMARY | 2024-12-10 12:32 | XMS_ITS ---
Author Organization Rajinder Guerrero III, MD Address [address] [place] [address] Care Team Providers Care Licensed Nuclear Operator Name Role Phone Roderick TAPIA, [facility] Primary Care Provider Dr. Rajinder Camargo III Unavailable REASON FOR VISIT FYI only Social History Sex Assigned At : Social History Observation Description Sex Assigned At Female Encounters Encounter Location Date Provider Diagnosis Rajinder Guerrero III, MD [address] [place] [address] [address] [facility] [place] [address] 12/10/2024 Rajinder Guerrero Plan Of Treatment Next Appt Details Provider Name:Rajinder Guerrero , 02/21/2025 09:00:00 AM, [address] [place] [address] [place], [address], Progress Notes * Larisa HERRERADOB:1955 (69 yo F)Acc No.[id number]:12/10/2024 Patient: Larisa BATES :1955 A ge:69 Y S ex:Female Address:[address] [place] [address] * true * Date: Generated for Printi ng/Faxing/eTransmitting on: 12:51 PM EDT
--- NOTE | 2025-01-21 10:40 | CA_ITS ---
Acquisition Time: 2025-01-21 11:04:01 Total Exercise Time: 00:02:55 Test Indications: ABN EKG Medications: SEE H&P Protocol: JERSON Max HR: 139 BPM 91% of Pred: 152 BPM Max BP: 124/78 mmHG Max Work Load: 4.6 METS Exercise stress test with exercise 2 min 55 sec of Jerson protocol, achieving 65% MPHR with request to stop due to leg fatigue and moderate shortness of breath, no chest discomfort, without arrythmia, without BP check during exercise, with nondiagnostic EKG for ischemia due to supotimal heart rate. Echo images obtained at rest and immediately post peak exercise, Definity contrast use. BP in recovery was normal range. Shortness of breath quickly resolved. Test reviewed with Dr Argueta Referred By: David Santana Electronically Signed By: BRYSON ROSSI
--- OUTSIDE RECORDS SUMMARY | 2025-01-21 12:52 | XMS_ITS | Patient Health Record ---
Author Organization [facility] Address [address] [place] [address] Care Team Providers Care It Service Manager Name Role Phone Deandra Vaughn Primary Care Provider UnavailTevin Gao Jr Unavailable [phone] Allergies Allergen (clinical drug ingredient) Drug/Non [...] Problem Status W/U Status Risk Notes Problem 014597886 Colon cancer screening (Z12.11) Active confirmed Problem 411168078 Bloating (R14.0) Active confirmed Problem Gastroesophageal reflux disease (913988908) GERD (gastroesophageal reflux disease) (K21.9) Active confirmed Problem 522087851 Gastroesophageal reflux disease, unspecified whether esophagitis present (K21.9) Active confirmed Plan Of Treatment Future Test Test Name Order Date UPPER GI ENDOSCOPY 01/04/2023 COLONOSCOPY 01/04/2023 Insurance Providers Payer Name Payer Address Payer Phone Subscriber Number Group Number Insured Name Patient Relationship to Insured Coverage Start Date Coverage End Date Aetna (No Referra l) [address] [address] [place] [address] [id number] PIYUSH DEE Self - patient is the insured Medical (General) History Medical History History ICD Code Hypertension Hyperlipidemia Left breast cancer, XRT and hormonal the rapy Polycythemia Anxiety Recent seizures, MRI of the brain pendin g Colonoscopy 07/25/08, hyperplastic polyps x2, ten-year followup Surgical History Surgery Date(Month/Year) Left breast cancer, lumpectomy/axillary node dissection 08/02 Cholecystectomy 10/07
--- OUTSIDE RECORDS SUMMARY | 2025-01-21 12:52 | XMS_ITS | Patient Health Record ---
Author Organization Rajinder Guerrero III, MD Address [address] [place] [address] Care Team Providers Care Lending Consultant Name Role Phone Roderick TAPIA, [facility] Primary Care Provider Dr. Rajinder Camargo III Unavailable Allergies Allergen (clinical drug ingredient) Drug/Non Drug Allergy documented on EMR Reaction Allergy Type Onset Date Status No Known Drug Allergy Unknown Drug Allergy Active Results Component Value Reference Range Notes Complete Blood Count Auto Di ff Reviewed date:01/29/2024 07:10:24 AM Interpretation: Performing Lab:[facility], [address] [place] [phone] Notes/Report: White Blood Count 9.9 4.8-10.8 X10*3/uL [...] Phlebotomy Reviewed date:01/29/2024 07:10:24 AM Interpretation: Performing Lab:[facility], [address] [place] [phone] Notes/Report: THER/HGB TNP 12.0-16.0 g/dL Lab Results on file. Performed at [facility] on 01/24/24: Hgb: 14.3 g/dl Hct: 43.6 % THER/HCT TNP 37.0-47.0 % Therapeutic Phlebotomy Phlebotomy Performed 500 mls drawn on 01/24/24. Please note that a copy of this report has been sent to the Primary Care Physician, the ordering physician and any physician designated by patient request. Complete Blood Count Auto Di ff Reviewed date:04/08/2024 06:11:33 AM Interpretation: Performing Lab:[facility], [address] [place] [phone] Notes/Report: White Blood Count 11.0 4.8-10.8 X10*3/uL [...] Phlebotomy Reviewed date:04/08/2024 06:11:33 AM Interpretation: Performing Lab:[facility], [address] [place] [phone] Notes/Report: THER/HGB TNP 12.0-16.0 g/dL Lab Results on file. Performed at [facility] on 03/26/24: Hgb: 13.5 g/dl Hct: 41.7 % THER/HCT TNP 37.0-47.0 % Therapeutic Phlebotomy Phlebotomy Performed 500 mls drawn on 03/26/24. Please note that a copy of this report has been sent to the Primary Care Physician, the ordering physician and any physician designated by patient request. Complete Blood Count Auto Di ff Reviewed date:06/09/2024 09:13:32 AM Interpretation: Performing Lab:[facility], [address] [place] [phone] Notes/Report: White Blood Count 8.9 4.8-10.8 X10*3/uL [...] Phlebotomy Reviewed date:06/09/2024 09:13:32 AM Interpretation: Performing Lab:[facility], [address] [place] [phone] Notes/Report: THER/HGB TNP 12.0-16.0 g/dL Lab Results on file. Performed at [facility] on 05/28/24: Hgb: 13.1 g/dl Hct: [...] ff Reviewed date:08/03/2024 07:24:43 AM Interpretation: Performing Lab:[facility], [address] [place] [phone] Notes/Report: White Blood Count 8.5 4.8-10.8 X10*3/uL [...] Phlebotomy Reviewed date:08/03/2024 07:24:43 AM Interpretation: Performing Lab:[facility], [address] [place] [phone] Notes/Report: THER/HGB TNP 12.0-16.0 g/dL Lab Results on file. Performed at [facility] on 07/30/24: Hgb: 12.5 g/dl Hct: [...] ff Reviewed date:10/02/2024 01:20:13 PM Interpretation: Performing Lab:[facility], [address] [place] [phone] Notes/Report: White Blood Count 8.6 4.8-10.8 X10*3/uL [...] Phlebotomy Reviewed date:10/02/2024 01:20:13 PM Interpretation: Performing Lab:[facility], [address] [place] [phone] Notes/Report: THER/HGB TNP 12.0-16.0 g/dL Lab Results on file. Performed at [facility] on 10/01/24: Hgb: 12.1 g/dl Hct: [...] ff Reviewed date:12/02/2024 01:40:01 PM Interpretation: Performing Lab:[facility], [address] [place] [phone] Notes/Report: White Blood Count 8.0 4.8-10.8 X10*3/uL [...] Phlebotomy Reviewed date:12/02/2024 01:40:01 PM Interpretation: Performing Lab:[facility], [address] [place] [phone] Notes/Report: THER/HGB TNP 12.0-16.0 g/dL Lab Results on file. Performed at [facility] on 12/02/24: Hgb: 12.1 g/dl Hct: [...] Problem Status W/U Status Risk Notes Problem 012207329 Obesity (E66.9) Active confirmed Her body mass index is 40. We discussed her diet and nutrition. We made a plan to lose weight at a rate of one half of a pound per week. Problem Postmenopausal state (33406882) Post-menopausal (Z78.0) Active confirmed She has not had a period in several years. Problem Polycythemia vera (427075997) Polycythemia vera (D45) Active confirmed Her polycythemia is stable and her hematocrit is in the normal range. She will have the CBC done every 2 months instead of one now that she is stable. She will avoid taking iron-containin g medications. Problem 99666552 Iron deficiency (E61.1) Active confirmed She is no longer anemic and a mean cell volume is macrocytic. She'll be observed carefully. The iron will be continued. Comprehensive blood work with a ferritin has been ordered.She has been phlebotomize continuously. Close observation will occur and. Treatment used if necessary. Problem 895821277 Raynaud's syndrome without gangrene (I73.00) Active confirmed No further episodes of Raynaud's syndrome have occurred since her last visit. Problem 61414841 Tobacco dependence (F17.200) Active confirmed She continues to smoke and I have made her aware of the health consequences doing so. I have referred her to the smoking cessation program at [facility]. Problem 972724491 Erythrocytosis (D75.1) Active confirmed She will continue the phlebotomy if needed. At this time her hematocrit and hemoglobin are normal. Currently, the increased red cell mass is well controlled. 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 There was no sign of metastatic disease or recurrence today. Her anastrozole was continued. Problem 692062292 Lobular carcinoma of left breast, stage 1 [...] Provider Diagnosis Rajinder Guerrero III, MD [address] [place] [address] [place] [phone] 04/18/2024 Rajinder Guerrero Iron deficiency E61. 1 ; Polycythemia vera D45 ; Celiac disease K90.0 ; Tobacco dependence F17.200 ; Raynaud's syndrome without gangrene I73.00 ; Malignant neoplasm of upper-outer quadrant of left female breast, 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 and Morbid obesity E66.01 Rajinder Guerrero III, MD [address] [place] [address] [place] [address] 10/17/2024 Rajinder Guerrero Iron deficiency E61. 1 ; Polycythemia vera D45 ; Tobacco dependence F17.200 ; Malignant neoplasm of upper-outer quadrant of left female breast, 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 and Morbid obesity E66.01 Rajinder Guerrero III, MD [address] [place] [address] [place] [phone] 12/10/2024 Rajinder Guerrero Assessments Encounter Date Diagnosis [...] her to the smoking cessation program at [facility]. 04/18/2024 Tobacco dependence (ICD-10 - F17.200) She continues to smoke and I have made her aware of the health consequences doing so. I have referred her to the smoking cessation program at [facility]. 10/17/2024 Malignant neoplasm of upper-outer quadrant [...] 10/17/2024 PROFILE, RANDOM (COMPREHENSIVE METABOLIC ) 10/19/2021 PROFILE, [...] CBC w DIFF 04/29/2019 CBC w DIFF 10/17/2024 CBC w DIFF 10/19/2021 SED RATE (ESR) 12/30/2020 MAMMOGRAM DIGITAL BILATERAL SCREEN 06/14 CBC WITH AUTO DIFF 05/19/2023 CBC WITH AUTO DIFF 09/22/2023 RETIC 06/30/2021 Ferritin 10/17/2024 Ferritin 05/19/2023 Ferritin 04/18/2024 Ferritin 06/30/2021 Ferritin 09/22/2023 Lipid Panel 04/18/2024 Folate 06/30/2021 Next Appt Details Provider Name:Rajinder Guerrero , 02/21/2025 09:00:00 AM, [address] [place] [address] [address], [address], [place], [address], Insurance Providers Payer Name Payer Address Payer Phone Subscriber Number Group Number Insured Name Patient Relationship to Insured Coverage Start Date Coverage End Date AETNA [address] [place] [address] [id number] Larisa Dee Self - patient is the insured MEDICARE NGS [address] [place] [phone] [id number] Larisa Dee Self - patient is the insured Medical (General) History Medical History History ICD Code history of iron deficiency celiac disease bunion left foot history of herpes zoster erythrocytosis episode of Raynaud's syndrome October invasive lobular carcinoma, l eft breast,ER+IA+Her-,8mm,N0 Left breast cancer in 2018, Gallbladder surgery in the past June 2017 invasive lobular carcinoma, l eft breast,ER+IA+Her-,8mm Surgical History Surgery Date(Month/Year) Gallbladder surgery Cholecystectomy 09/2022 drainage tonsillar abscess 12/2018 left breast lumpectomy,SN, invasive lobu lar carcinoma 06/2017 Hospitalization History Reason Date(Month/Year) No history tonsilitis 09/2021
== END ==
LOC: HO.CARD 10:38
PROVIDERS: PCP Internal Medicine; Visit Provider Surgery
DX: R94.31 Abnormal electrocardiogram [ECG] [EKG] (principal)
CPT/HCPCS: 93350; Q9957

== ENCOUNTER → 2025-01-21 10:40 | Outpatient (BNV) | payer MEDICARE, SELFPAY | PROVIDERS: PCP Internal Medicine; Visit Provider Nurse Practitioner Family | DX: R06.02 Shortness of breath (principal); R53.83 Other fatigue | CPT/HCPCS: 93016; 93018; 93350; 93352 ==

== ENCOUNTER 2025-01-31 12:44 | Outpatient (REF) | payer MEDICARE, SELFPAY ==
--- OUTSIDE RECORDS SUMMARY | 2023-09-22 11:00 | XMS_ITS ---
Author Organization Rajinder Guerrero III, MD Address [address] [place] [address] Care Team Providers Care Switchboard Wirer Name Role Phone Roderick TAPIA, [facility] Primary Care Provider Dr. Rajinder Camargo [...] W/U Status Risk Notes Problem Polycythemia vera ([id number]) Polycythemia vera (D45) Active confirmed Her polycythemia [...] Date Provider Diagnosis Rajinder Guerrero III, MD [address] [place] [address] [place] [address] 09/22/2023 Rajinder Guerrero Iron deficiency E61. 1 [...] her to the smoking cessation program at [facility]. 09/22/2023 Polycythemia vera (ICD-10 - D45) [...] Provider Name:Rajinder Guerrero , 02/21/2025 09:00:00 AM, [address] [place] [address], [place] [address], [place], [address], Progress Notes * LUIZ TamaraoscarDOB:1955 (68 yo F)Acc No.[id number]:09/22/2023 Progress Notes Patient: Larisa Conklin Provider: Oliva Guerrero MD :1955 A ge:68 Y S ex:Female Date:09/22/2023 Address:[address] [place], [place] [phone] Pcp:Deandra Vaughn MD Subjective: * Chief Complaints: [...] x-cigarette smoker S he was born in [place] and is . She has 2 sons and works at [employer] in [place]. * Medications: T akingLORazepam 1 MG Tablet [...] - 09/20/2023) (Collection Date - 09/20/2023)? ValueReference Range?[id number] - ng/mL * Examination: G eneral Examination: [...] her to the smoking cessation program at [facility]. 4. P olycythemia vera - D45, [...] 09/22/2023 Generated for Jannie stover/Baljit/Annalise on: 1 03:04 PM EDT History and Physical Notes * [...]
--- OUTSIDE RECORDS SUMMARY | 2024-03-25 14:15 | XMS_ITS ---
Author Organization Rajinder Guerrero III, MD Address [address] [place] [address] [place] [address] Care Team Providers Care Shift Manager Name Role Phone Roderick TAPIA, Deandra Primary Care Provider Dr. Rajinder Camargo III Unavailable REASON FOR VISIT Follow-up Social History Sex Assigned At : Social History Observation Description Sex Assigned At Female Encounters Encounter Location Date Provider Diagnosis Rajinder Guerrero III, MD [address] [place] [address] [address] [facility] [place] [address] 03/25/2024 Rajinder Guerrero Plan Of Treatment Next Appt Details Provider Name:Rajinder Guerrero , 02/21/2025 09:00:00 AM, [address] [place] [address] [place], [address], Progress Notes * Larisa DEEDOB:1955 (69 yo F)Acc No.[id number]:03/25/2024 Progress Notes Patient: Larisa BATES Provider: Oliva Guerrero MD :1955 A ge:69 Y S ex:Female Date:03/25/2024 Address:[address] [place], [place] [address] [id number] Pcp:Deandra Vaughn MD Subjective: * Chief Complaints: [...] 1 05/26/2023 Generated for Jannie stover/Baljit/Annalise on: 03:04 PM EDT
--- OUTSIDE RECORDS SUMMARY | 2024-04-18 05:00 | XMS_ITS ---
Author Organization Rajinder Guerrero III, MD Address [address] [place] [address] Care Team Providers Care Marine Cargo Surveyor Name Role Phone Roderick TAPIA, [facility] Primary Care Provider Dr. Rajinder Camargo [...] Date Provider Diagnosis Rajinder Guerrero III, MD [address] [place] [address] [place] [address] 04/18/2024 Rajinder Guerrero Iron deficiency E61. 1 [...] to the smoking cessation program at [facility]. 04/18/2024 Raynaud's syndrome without gangrene (ICD-10 [...] Provider Name:Rajinder Guerrero , 02/21/2025 09:00:00 AM, [address] [place] [address] [address] [address], [place], [address], Progress Notes * LUIZ LarisaDOB:1955 (69 yo F)Acc No.[id number]:04/18/2024 Progress Notes Patient: Larisa BATES Provider: Oliva Guerrero MD :1955 A ge:69 Y S ex:Female Date:04/18/2024 Address:[address] [place], [place] [phone] Pcp:Deandra Vaughn MD Subjective: * Chief Complaints: [...] N egative S he was born in [place] and is . She has 2 sons and works at [employer] in [place]. Smoking: Occasional, Exercise: Uses an exercise bike. [...] to the smoking cessation program at [facility]. 5 . R aynaud's syndrome without [...] 0 04/18/2024 Generated for Jannie stover/Baljit/Annalise on: 03:04 PM EDT History and Physical Notes [...]
--- OUTSIDE RECORDS SUMMARY | 2024-10-17 05:15 | XMS_ITS ---
Author Organization Rajinder Guerrero III, MD Address [address] [facility] [place] [address] Care Team Providers Care Fisher Seal Name Role Phone Roderick TAPIA, [facility] Primary Care Provider Dr. Rajinder Camargo [...] Date Provider Diagnosis Rajinder Guerrero III, MD [address] [place] [address] [place] [address] 10/17/2024 Rajinder Rodriguesne Iron deficiency E61. 1 [...] smoking cessation program at [facility]. 10/17/2024 Malignant neoplasm of upper-outer quadrant [...] Months, Reason: OV Provider Name:Rajinder Rodriguesne , 02/21/2025 09:00:00 AM, [address] [place] [address] SATYA CONNOLLY, [place], [address], Progress Notes * Larisa DEEDOB:1955 (69 yo F)Acc No.[id number]:10/17/2024 Progress Notes Patient: Larisa BATES Provider: Oliva Guerrero MD :1955 A ge:69 Y S ex:Female Date:10/17/2024 Address:[address] [place], [place] [phone] Pcp:Deandra Vaughn MD Subjective: * Chief Complaints: [...] urrent smoker S he was born in [place] and is . She has 2 sons and works at [employer] in [place]. Smoking: Occasional, Exercise: Uses an exercise bike. [...] smoking cessation program at [facility]. 4 . M alignant neoplasm of [...] 10/17/2024 Generated for Jannie stover/Baljit/Annalise on: 1 03:04 [...]
--- OUTSIDE RECORDS SUMMARY | 2024-12-10 12:32 | XMS_ITS ---
Author Organization Rajinder Guerrero III, MD Address [address] [place] [address] Care Team Providers Care Accounts Specialist Name Role Phone Roderick TAPIA, [facility] Primary Care Provider Dr. Rajinder Camargo III Unavailable REASON FOR VISIT FYI only Social History Sex Assigned At : Social History Observation Description Sex Assigned At Female Encounters Encounter Location Date Provider Diagnosis Rajinder Guerrero III, MD [address] [place] [address] [address] [facility] [place] [address] 12/10/2024 Rajinder Guerrero Plan Of Treatment Next Appt Details Provider Name:Rajinder Guerrero , 02/21/2025 09:00:00 AM, [address] [place] [address] [place], [address], Progress Notes * Larisa HERRERADOB:1955 (69 yo F)Acc No.[id number]:12/10/2024 Patient: Larisa BATES :1955 A ge:69 Y S ex:Female Address:[address] [place] [address] * true * Date: Generated for Printi ng/Faxing/eTransmitting on: 03:03 PM EDT
--- NOTE | 2025-01-31 13:01 | PFT_ITS ---
Flows: FEV1: 76 % of predicted at 1.77 L FVC: 78 % of predicted at 2.34 L FEV1/FVC: 76 % Bronchodilator response: Present in small to medium airways only Volumes: Total lung capacity: 74 % of predicted at 3.84 L Residual volume: 75 % of predicted at 1.49 L Slow vital capacity: 75 % of predicted at 2.35 L Expiratory reserve volume: 28 % of predicted at 0.22 L Diffusion capacity: Mildly decreased, corrects to normal after adjustment for alveolar ventilation. Impression: Moderate restrictive ventilatory defect with bronchodilator response present in small to medium airways only. Decreased expiratory reserve volume suggests extrathoracic restriction likely secondary to abdominal obesity. Combination of restrictive ventilatory defect with decreased diffusion capacity suggests underlying pulmonary parenchymal disease. Clinical correlation is advised. MTDD
[2025-01-31 13:46] VITALS: PULSE 51
--- OUTSIDE RECORDS SUMMARY | 2025-01-31 15:04 | XMS_ITS | Patient Health Record ---
Author Organization [facility] Address [address] [place] [address] Care Team Providers Care Director Television News Name Role Phone Deandra Vaughn Primary Care Provider Tevin Moreno Jr Unavailable Allergies Allergen (clinical drug ingredient) [...] at 5:00 p.m. the day before the procedure; Duration: 1 day 01/04/2023 Active Losartan Potassium-HCTZ 100-25 MG Oral; Duration: 90 Active Metoprolol Tartrate 50 MG TAKE 1 TABLET BY MOUTH TWICE A DAY Oral; Duration: 90 Active LORazepam 1 MG Oral; Duration: 28 Active Pravastatin Sodium 80 MG Oral; Duration: 90 Active Immunizations Vaccine Route Administration Date [...] Problem Status W/U Status Risk Notes Problem Colon cancer screening (213967352) Colon cancer screening (Z12.11) Active confirmed Problem Flatulence, eructation and gas pain (161214747) Bloating (R14.0) Active confirmed Problem Gastroesophageal reflux disease (521586596) GERD (gastroesophageal reflux disease) (K21.9) Active confirmed Problem Gastroesophageal reflux disease (590466961) Gastroesophageal reflux disease, unspecified whether esophagitis present (K21.9) Active confirmed Plan Of Treatment Future Test Test Name Order Date UPPER GI ENDOSCOPY 01/04/2023 COLONOSCOPY 01/04/2023 Insurance Providers Payer Name Payer Address Payer Phone Subscriber Number Group Number Insured Name Patient Relationship to Insured Coverage Start Date Coverage End Date Aetna (No Referra l) [address] [address] [place] [address] [id number] PIYUSH DEE Self - patient is the insured Medical (General) History Medical History History ICD Code Hypertension Hyperlipidemia Left breast cancer, XRT and hormonal the rapy Polycythemia Anxiety Recent seizures, MRI of the brain pendin g Colonoscopy 07/25/08, hyperplastic polyps x2, ten-year followup Surgical History Surgery Date(Month/Year) Left breast cancer, lumpectomy/axillary node dissection 08/02 Cholecystectomy 10/07
--- OUTSIDE RECORDS SUMMARY | 2025-01-31 15:04 | XMS_ITS | Patient Health Record ---
Author Organization Rajinder Guerrero III, MD Address [address] [place] [address] Care Team Providers Care Air Export Agent Name Role Phone Roderick TAPIA, [facility] Primary Care Provider Dr. Rajinder Camargo III Unavailable Allergies Allergen (clinical drug ingredient) Drug/Non Drug Allergy documented on EMR Reaction Allergy Type Onset Date Status No Known Drug Allergy Unknown Drug Allergy Active Results Component Value Reference Range Notes Complete Blood Count Auto Di ff Reviewed date:04/08/2024 06:11:33 AM Interpretation: Performing Lab:[facility], [address] [place] [phone] Notes/Report: White Blood Count 11.0 4.8-10.8 X10*3/uL [...] Phlebotomy Reviewed date:04/08/2024 06:11:33 AM Interpretation: Performing Lab:[facility], [address] [place] [phone] Notes/Report: THER/HGB TNP 12.0-16.0 g/dL Lab Results on file. Performed at [facility] on 03/26/24: Hgb: 13.5 g/dl Hct: 41.7 % THER/HCT TNP 37.0-47.0 % Therapeutic Phlebotomy Phlebotomy Performed 500 mls drawn on 03/26/24. Please note that a copy of this report has been sent to the Primary Care Physician, the ordering physician and any physician designated by patient request. Complete Blood Count Auto Di ff Reviewed date:06/09/2024 09:13:32 AM Interpretation: Performing Lab:[facility], [address] [place] [phone] Notes/Report: White Blood Count 8.9 4.8-10.8 X10*3/uL [...] Phlebotomy Reviewed date:06/09/2024 09:13:32 AM Interpretation: Performing Lab:[address] [phone] Notes/Report: THER/HGB TNP 12.0-16.0 g/dL Lab Results on file. Performed at [facility] on 05/28/24: Hgb: 13.1 g/dl Hct: [...] ff Reviewed date:08/03/2024 07:24:43 AM Interpretation: Performing Lab:[facility], [address] [place] [phone] Notes/Report: White Blood Count 8.5 4.8-10.8 X10*3/uL [...] Phlebotomy Reviewed date:08/03/2024 07:24:43 AM Interpretation: Performing Lab:[facility], [address] [place] [phone] Notes/Report: THER/HGB TNP 12.0-16.0 g/dL Lab Results on file. Performed at [facility] on 07/30/24: Hgb: 12.5 g/dl Hct: [...] ff Reviewed date:10/02/2024 01:20:13 PM Interpretation: Performing Lab:[facility], [address] [place] [phone] Notes/Report: White Blood Count 8.6 4.8-10.8 X10*3/uL [...] Phlebotomy Reviewed date:10/02/2024 01:20:13 PM Interpretation: Performing Lab:[facility], [address] [place] [phone] Notes/Report: THER/HGB TNP 12.0-16.0 g/dL Lab Results on file. Performed at [facility] on 10/01/24: Hgb: 12.1 g/dl Hct: [...] ff Reviewed date:12/02/2024 01:40:01 PM Interpretation: Performing Lab:[facility], [address] [place] [phone] Notes/Report: White Blood Count 8.0 4.8-10.8 X10*3/uL [...] Phlebotomy Reviewed date:12/02/2024 01:40:01 PM Interpretation: Performing Lab:[facility], [address] [place] [phone] Notes/Report: THER/HGB TNP 12.0-16.0 g/dL Lab Results on file. Performed at [facility] on 12/02/24: Hgb: 12.1 g/dl Hct: [...] Problem Status W/U Status Risk Notes Problem 158272057 Obesity (E66.9) Active confirmed Her body mass index is 40. We discussed her diet and nutrition. We made a plan to lose weight at a rate of one half of a pound per week. Problem Postmenopausal state (76336434) Post-menopausal (Z78.0) Active confirmed She has not had a period in several years. Problem Polycythemia vera (127883641) Polycythemia vera (D45) Active confirmed Her polycythemia is stable and her hematocrit is in the normal range. She will have the CBC done every 2 months instead of one now that she is stable. She will avoid taking iron-containin g medications. Problem 28117469 Iron deficiency (E61.1) Active confirmed She is no longer anemic and a mean cell volume is macrocytic. She'll be observed carefully. The iron will be continued. Comprehensive blood work with a ferritin has been ordered.She has been phlebotomize continuously. Close observation will occur and. Treatment used if necessary. Problem 804663661 Raynaud's syndrome without gangrene (I73.00) Active confirmed No further episodes of Raynaud's syndrome have occurred since her last visit. Problem 86421487 Tobacco dependence (F17.200) Active confirmed She continues to smoke and I have made her aware of the health consequences doing so. I have referred her to the smoking cessation program at [facility]. Problem 203489218 Erythrocytosis (D75.1) Active confirmed She will continue the phlebotomy if needed. At this time her hematocrit and hemoglobin are normal. Currently, the increased red cell mass is well controlled. 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 There was no sign of metastatic disease or recurrence today. Her anastrozole was continued. Problem 516419540 Lobular carcinoma of left breast, stage 1 [...] Date Provider Diagnosis Rajinder Guerrero III, MD [address] [place] [address] [place] [address] 04/18/2024 Rajinder Guerrero Iron deficiency E61. 1 ; Polycythemia vera D45 ; Celiac disease K90.0 ; Tobacco dependence F17.200 ; Raynaud's syndrome without gangrene I73.00 ; Malignant neoplasm of upper-outer quadrant of left female breast, 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 and Morbid obesity E66.01 Rajinder Guerrero III, MD [address] [place] [address] [place] [address] 10/17/2024 Rajinder Guerrero Iron deficiency E61. 1 ; Polycythemia vera D45 ; Tobacco dependence F17.200 ; Malignant neoplasm of upper-outer quadrant of left female breast, 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 and Morbid obesity E66.01 Rajinder Guerrero III, MD [address] [place] [address] [place] [address] 12/10/2024 Rajinder Guerrero Assessments Encounter Date Diagnosis [...] her to the smoking cessation program at [facility]. 04/18/2024 Tobacco dependence (ICD-10 - F17.200) She continues to smoke and I have made her aware of the health consequences doing so. I have referred her to the smoking cessation program at [facility]. 10/17/2024 Malignant neoplasm of upper-outer quadrant [...] Provider Name:Rajinder Guerrero , 02/21/2025 09:00:00 AM, [address] [address] [address], [place], [address], Insurance Providers Payer Name Payer Address Payer Phone Subscriber Number Group Number Insured Name Patient Relationship to Insured Coverage Start Date Coverage End Date AETNA [address] [place] [phone] [id number] Larisa Dee Self - patient is the insured MEDICARE NGS [address] [place] [phone] [id number] Larisa Dee Self - patient is the insured Medical (General) History Medical History History ICD Code history of iron deficiency celiac disease bunion left foot history of herpes zoster erythrocytosis episode of Raynaud's syndrome October invasive lobular carcinoma, l eft breast,ER+AL+Her-,8mm,N0 Left breast cancer in 2018, Gallbladder surgery in the past June 2017 invasive lobular carcinoma, l eft breast,ER+AL+Her-,8mm Surgical History Surgery Date(Month/Year) Gallbladder surgery Cholecystectomy 09/2022 drainage tonsillar abscess 12/2018 left breast lumpectomy,SN, invasive lobu lar carcinoma 06/2017 Hospitalization History Reason Date(Month/Year) No history tonsilitis 09/2021
== END 2025-01-31 12:45 | disposition home or self-care (01) ==
LOC: HO.RESP 12:44
PROVIDERS: PCP Internal Medicine; Visit Provider Surgery
DX: I27.20 Pulmonary hypertension, unspecified (principal)
CPT/HCPCS: 94060; 94640; 94727; 94729

== ENCOUNTER → 2025-01-31 13:01 | Outpatient (BNV) | payer MEDICARE, SELFPAY | PROVIDERS: PCP Internal Medicine; Visit Provider Internal Medicine Pulmonary Disease | DX: J98.4 Other disorders of lung (principal) | CPT/HCPCS: 94060; 94727; 94729 ==

== ENCOUNTER 2025-02-04 10:01 | Outpatient (REF) | payer MEDICARE, SELFPAY ==
--- OUTSIDE RECORDS SUMMARY | 2023-09-22 11:00 | XMS_ITS ---
Author Organization Rajinder Guerrero III, MD Address [address] [place] [address] Care Team Providers Care Millwright Apprentice Name Role Phone Roderick TAPIA, [facility] [...] W/U Status Risk Notes Problem Polycythemia vera ([id number]) Polycythemia vera (D45) Active confirmed Her polycythemia [...] Date Provider Diagnosis Rajinder Guerrero III, MD [address] [place] [address] [place] [address] 09/22/2023 Rajinder Guerrero Iron deficiency E61. 1 [...] her to the smoking cessation program at [facility]. 09/22/2023 Polycythemia vera (ICD-10 - D45) [...] Provider Name:Rajinder Guerrero , 02/21/2025 09:00:00 AM, [address] [place] [address], [place] [address], [place], [address], Progress Notes * LUIZ TamaraoscarDOB:1955 (68 yo F)Acc No.[id number]:09/22/2023 Progress Notes Patient: Larisa Conklin Provider: Oliva Guerrero MD :1955 A ge:68 Y S ex:Female Date:09/22/2023 Address:[address] [place], [place] [phone] Pcp:Deandra Vaughn MD Subjective: * Chief Complaints: [...] x-cigarette smoker S he was born in [place] and is . She has 2 sons and works at [employer] in [place]. * Medications: T akingLORazepam 1 MG Tablet [...] - 09/20/2023) (Collection Date - 09/20/2023)? ValueReference Range?[id number] - ng/mL * Examination: G eneral Examination: [...] her to the smoking cessation program at [facility]. 4. P olycythemia vera - D45, [...] 09/22/2023 Generated for Jannie stover/Baljit/Annalise on: 1 11:37 AM EDT History and Physical Notes * [...]
--- OUTSIDE RECORDS SUMMARY | 2024-03-25 14:15 | XMS_ITS ---
Author Organization Rajinder Guerrero III, MD Address [address] [place] [address] [place] [address] Care Team Providers Care Gasfitter Name Role Phone Roderick TAPIA, Deandra Primary Care Provider Dr. Rajinder Camargo III Unavailable [phone] REASON FOR VISIT Follow-up Social History Sex Assigned At : Social History Observation Description Sex Assigned At Female Encounters Encounter Location Date Provider Diagnosis Rajinder Guerrero III, MD [address] [place] [address] [address] [facility] [place] [address] 03/25/2024 Rajinder Guerrero Plan Of Treatment Next Appt Details Provider Name:Rajinder Guerrero , 02/21/2025 09:00:00 AM, [address] [place] [address] [place], [address], Progress Notes * Larisa DEEDOB:1955 (69 yo F)Acc No.[id number]:03/25/2024 Progress Notes Patient: Larisa BATES Provider: Oliva Guerrero MD :1955 A ge:69 Y S ex:Female Date:03/25/2024 Address:[address] [place], [place] [id number] Pcp:Deandra Vaughn MD Subjective: * Chief Complaints: [...] 1 05/26/2023 Generated for Jannie stover/Baljit/Annalise on: 11:38 AM EDT
--- OUTSIDE RECORDS SUMMARY | 2024-04-18 05:00 | XMS_ITS ---
Author Organization Rajinder Guerrero III, MD Address [address] [place] [address] Care Team Providers Care Bushing Press Operator Name Role Phone Roderick TAPIA, [facility] Primary Care Provider Dr. Rajinder Camargo III [...] Provider Diagnosis Rajinder Guerrero III, MD [address] [place] [address] [place] [address] 04/18/2024 Rajinder Guerrero Iron deficiency E61. 1 [...] her to the smoking cessation program at [facility]. 04/18/2024 Raynaud's syndrome without gangrene (ICD-10 [...] labs, Routine follow-up Provider Name:Rajinder Guerrero , 02/21/2025 09:00:00 AM, [address] [place] [address] [address] [address], [place], [address], Progress Notes * LUIZ LarisaDOB:1955 (69 yo F)Acc No.[id number]:04/18/2024 Progress Notes Patient: Larisa BATES Provider: Oliva Guerrero MD :1955 A ge:69 Y S ex:Female Date:04/18/2024 Address:[address] [place], [place] [phone] Pcp:Deandra Vaughn MD Subjective: * Chief Complaints: [...] N egative S he was born in [place] and is . She has 2 sons and works at [employer] in [place]. Smoking: Occasional, Exercise: Uses an exercise bike. [...] her to the smoking cessation program at [facility]. 5 . R aynaud's syndrome without [...] 0 04/18/2024 Generated for Jannie stover/Baljit/Annalise on: 11:37 AM EDT History and Physical Notes [...]
--- OUTSIDE RECORDS SUMMARY | 2024-10-17 05:15 | XMS_ITS ---
Author Organization Rajinder Guerrero III, MD Address [address] [address] Care Team Providers Care Manager Ethics Name Role Phone Roderick TAPIA, [facility] Primary Care Provider Dr. Rajinder Camargo III Unavailable [phone] Allergies Allergen (clinical drug ingredient) Drug/Non Drug [...] Date Provider Diagnosis Rajinder Guerrero III, MD [address] [place] [address] [place] [address] 10/17/2024 Rajinder Rodriguesne Iron deficiency E61. 1 [...] to the smoking cessation program at [facility]. 10/17/2024 Malignant neoplasm of upper-outer quadrant [...] Provider Name:Rajinder Rodriguesne , 02/21/2025 09:00:00 AM, [address] [place] [address] SATYA CONNOLLY, [place], [address], Progress Notes * Larisa DEEDOB:1955 (69 yo F)Acc No.[id number]:10/17/2024 Progress Notes Patient: Larisa BATES Provider: Oliva Guerrero MD :1955 A ge:69 Y S ex:Female Date:10/17/2024 Address:[address] [place], [place] [phone] Pcp:Deandra Vaughn MD Subjective: * Chief Complaints: [...] urrent smoker S he was born in [place] and is . She has 2 sons and works at [employer] in [place]. Smoking: Occasional, Exercise: Uses an exercise bike. [...] to the smoking cessation program at [facility]. 4 . M alignant neoplasm of [...] 10/17/2024 Generated for Jannie stover/Baljit/Annalise on: 1 11:38 AM EDT History and Physical Notes * [...]
--- OUTSIDE RECORDS SUMMARY | 2024-12-10 12:32 | XMS_ITS ---
Author Organization Rajinder Guerrero III, MD Address [address] [place] [address] Care Team Providers Care Operations Tech Name Role Phone Roderick TAPIA, [facility] Primary Care Provider Dr. Rajinder Camargo III Unavailable REASON FOR VISIT FYI only Social History Sex Assigned At : Social History Observation Description Sex Assigned At Female Encounters Encounter Location Date Provider Diagnosis Raijnder Guerrero III, MD [address] [place] [address] [address] [facility] [place] [address] 12/10/2024 Rajinder Guerrero Plan Of Treatment Next Appt Details Provider Name:Rajinder Guerrero , 02/21/2025 09:00:00 AM, [address] [place] [address] [place], [address], Progress Notes * Larisa HERRERADOB:1955 (69 yo F)Acc No.[id number]:12/10/2024 Patient: Larisa BATES :1955 A ge:69 Y S ex:Female Address:[address] [place] [address] * true * Date: Generated for Printi ng/Faxing/eTransmitting on: 11:37 AM EDT
[2025-02-04 10:12] LABS: MANUAL DIFF FLAG NO
[2025-02-04 10:17] LABS: Hematocrit 34.9 % (37.0-47.0); Hemoglobin 11.5 g/dl (12.0-16.0); Imm Gran Abs Auto 0.02 X10*3/uL (0.00-0.03); Imm Gran Pct Auto 0.3 % (0.0-0.4); Lymphocytes Absolute Auto 1.2 X10*3/uL (1.2-4.9); Mean Corpuscular HGB Conc 33.0 g/dl (31.0-35.0); Mean Corpuscular Hemoglobin 33.3 pg (27.0-33.0); Mean Corpuscular Volume 101.2 fL (80.0-98.0); NRBC Abs Auto 0.000 X10*3/uL (0.0-0.012); NRBC Pct Auto 0.0 /100WBC (0.0-0.2); Platelet Count 285 X10*3/uL (160-400); Red Blood Count 3.45 X10*6/uL (4.20-5.50); White Blood Count 7.1 X10*3/uL (4.8-10.8)
--- OUTSIDE RECORDS SUMMARY | 2025-02-04 11:38 | XMS_ITS | Patient Health Record ---
Author Organization [facility] Address [address] [place] [address] Care Team Providers Care Golf Course Laborer Name Role Phone Deandra Vaughn Primary Care [...] Status Risk Notes Problem Colon cancer screening (819651472) Colon cancer screening (Z12.11) Active confirmed Problem Flatulence, eructation and gas pain (190068176) Bloating (R14.0) Active confirmed Problem Gastroesophageal reflux disease (896411523) GERD (gastroesophageal reflux disease) (K21.9) Active confirmed Problem Gastroesophageal reflux disease (741410139) Gastroesophageal reflux disease, unspecified whether esophagitis present (K21.9) Active confirmed Plan Of Treatment Future Test Test Name Order Date UPPER GI ENDOSCOPY 01/04/2023 COLONOSCOPY 01/04/2023 Insurance Providers Payer Name Payer Address Payer Phone Subscriber Number Group Number Insured Name Patient Relationship to Insured Coverage Start Date Coverage End Date Aetna (No Referra l) [address] [address] [place] [address] [id number] PIYUSH DEE Self - patient is the insured Medical (General) History Medical History History ICD Code Hypertension Hyperlipidemia Left breast cancer, XRT and hormonal the rapy Polycythemia Anxiety Recent seizures, MRI of the brain pendin g Colonoscopy 07/25/08, hyperplastic polyps x2, ten-year followup Surgical History Surgery Date(Month/Year) Left breast cancer, lumpectomy/axillary node dissection 08/02 Cholecystectomy 10/07
--- OUTSIDE RECORDS SUMMARY | 2025-02-04 11:38 | XMS_ITS | Patient Health Record ---
Author Organization Rajinder Guerrero III, MD Address [address] [place] [address] Care Team Providers Care Ruffling Hemmer Automatic Name Role Phone Roderick TAPIA, [facility] Primary Care Provider Dr. Rajinder Camargo III Unavailable [phone] Allergies Allergen (clinical drug ingredient) Drug/Non Drug Allergy documented on EMR Reaction Allergy Type Onset Date Status No Known Drug Allergy Unknown Drug Allergy Active Results Component Value Reference Range Notes Complete Blood Count Auto Di ff Reviewed date:04/08/2024 06:11:33 AM Interpretation: Performing Lab:[facility], [address] [place] [phone] Notes/Report: White Blood Count 11.0 4.8-10.8 X10*3/uL [...] Phlebotomy Reviewed date:04/08/2024 06:11:33 AM Interpretation: Performing Lab:[facility], [address] [place] [address] Notes/Report: THER/HGB TNP 12.0-16.0 g/dL Lab Results [...] ff Reviewed date:06/09/2024 09:13:32 AM Interpretation: Performing Lab:[facility], [address] [place] [phone] Notes/Report: White Blood Count 8.9 4.8-10.8 X10*3/uL [...] Phlebotomy Reviewed date:06/09/2024 09:13:32 AM Interpretation: Performing Lab:[address] [address] Notes/Report: THER/HGB TNP 12.0-16.0 g/dL Lab Results [...] ff Reviewed date:08/03/2024 07:24:43 AM Interpretation: Performing Lab:[facility], [address] [place] [phone] Notes/Report: White Blood Count 8.5 4.8-10.8 X10*3/uL [...] Phlebotomy Reviewed date:08/03/2024 07:24:43 AM Interpretation: Performing Lab:[facility], [address] [place] [phone] Notes/Report: THER/HGB TNP 12.0-16.0 g/dL Lab Results [...] ff Reviewed date:10/02/2024 01:20:13 PM Interpretation: Performing Lab:[facility], [address] [place] [phone] Notes/Report: White Blood Count 8.6 4.8-10.8 X10*3/uL [...] Phlebotomy Reviewed date:10/02/2024 01:20:13 PM Interpretation: Performing Lab:[facility], [address] [place] [address] Notes/Report: THER/HGB TNP 12.0-16.0 g/dL Lab Results [...] ff Reviewed date:12/02/2024 01:40:01 PM Interpretation: Performing Lab:[facility], [address] [place] [address] Notes/Report: White Blood Count 8.0 4.8-10.8 X10*3/uL [...] Phlebotomy Reviewed date:12/02/2024 01:40:01 PM Interpretation: Performing Lab:[facility], [address] [place] [phone] Notes/Report: THER/HGB TNP 12.0-16.0 g/dL Lab Results [...] (Not yet reviewed by provider) Interpretation: Performing Lab:[facility], [address] [place] [address] Notes/Report: White Blood Count 7.1 4.8-10.8 X10*3/uL Red Blood Count 3.45 4.20-5.50 X10*6/uL Hemoglobin 11.5 12.0-16.0 g/dl Hematocrit 34.9 37.0-47.0 % Mean Corpuscular Volume 101.2 80.0-98.0 fL Mean Corpuscular Hemoglobin 33.3 27.0-33.0 pg Mean Corpuscular HGB Conc 33.0 31.0-35.0 g/dl Red Cell Distribution Width 13.6 11.0-16.0 % Platelet Count 285 160-400 X10*3/uL Mean Platelet Volume 9.9 9.4-12.3 fL Neutrophils Percent Auto 70.8 45-73 % Imm Gran Pct Auto 0.3 0.0-0.4 % Lymphocytes Percent Auto 16.4 20-40 % Monocytes Percent Auto 9.0 2-11 % Eosinophils Percent Auto 2.7 0-4 % Basophils Percent Auto 0.8 0-2 % NRBC Pct Auto 0.0 0.0-0.2 /100WBC Neutrophils Absolute Auto 5.0 2.0-8.3 x10*3/uL Imm Gran Abs Auto 0.02 0.00-0.03 X10*3/uL Lymphocytes Absolute Auto 1.2 1.2-4.9 X10*3/uL Monocytes Absolute Auto 0.6 0.1-1.2 X10*3/uL Eosinophils Absolute Auto 0.2 0.0-0.4 X10*3/uL Basophils Absolute Auto 0.1 0.0-0.2 X10*3/uL NRBC Abs Auto 0.000 0.0-0.012 X10*3/uL Reason For Referral No Information Medications Medication [...] Problem Status W/U Status Risk Notes Problem 375948874 Obesity (E66.9) Active confirmed Her body mass index is 40. We discussed her diet and nutrition. We made a plan to lose weight at a rate of one half of a pound per week. Problem Postmenopausal state (95075504) Post-menopausal (Z78.0) Active confirmed She has not had a period in several years. Problem Polycythemia vera (943817007) Polycythemia vera (D45) Active confirmed Her polycythemia is stable and her hematocrit is in the normal range. She will have the CBC done every 2 months instead of one now that she is stable. She will avoid taking iron-containin g medications. Problem 98432466 Iron deficiency (E61.1) Active confirmed She is no longer anemic and a mean cell volume is macrocytic. She'll be observed carefully. The iron will be continued. Comprehensive blood work with a ferritin has been ordered.She has been phlebotomize continuously. Close observation will occur and. Treatment used if necessary. Problem 850899479 Raynaud's syndrome without gangrene (I73.00) Active confirmed No further episodes of Raynaud's syndrome have occurred since her last visit. Problem 14933854 Tobacco dependence (F17.200) Active confirmed She continues to smoke and I have made her aware of the health consequences doing so. I have referred her to the smoking cessation program at [facility]. Problem 315424715 Erythrocytosis (D75.1) Active confirmed She will continue the phlebotomy if needed. At this time her hematocrit and hemoglobin are normal. Currently, the increased red cell mass is well controlled. 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 There was no sign of metastatic disease or recurrence today. Her anastrozole was continued. Problem 762948652 Lobular carcinoma of left breast, stage 1 [...] Date Provider Diagnosis Rajinder Guerrero III, MD [address] [place] [address] [place] [phone] 04/18/2024 Rajinder Guerrero Iron deficiency E61. 1 ; Polycythemia vera D45 ; Celiac disease K90.0 ; Tobacco dependence F17.200 ; Raynaud's syndrome without gangrene I73.00 ; Malignant neoplasm of upper-outer quadrant of left female breast, 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 and Morbid obesity E66.01 Rajinder Guerrero III, MD [address] [place] [address] [place] [address] 10/17/2024 Rajinder Guerrero Iron deficiency E61. 1 ; Polycythemia vera D45 ; Tobacco dependence F17.200 ; Malignant neoplasm of upper-outer quadrant of left female breast, 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 and Morbid obesity E66.01 Rajinder Guerrero III, MD [address] [place] [address] [place] [address] 12/10/2024 Rajinder Guerrero Assessments Encounter Date Diagnosis [...] Blood Count Auto Diff RETIC 06/30/2021 Ferritin 10/17/2024 Ferritin 05/19/2023 Ferritin 04/18/2024 Ferritin 06/30/2021 Ferritin 09/22/2023 Lipid Panel 04/18/2024 Folate 06/30/2021 Next Appt Details Provider Name:Rajinder Guerrero , 02/21/2025 09:00:00 AM, [address] [place] [address] SATYA CONNOLLY, [place]YLE [place], [phone], Insurance Providers Payer Name Payer Address Payer Phone Subscriber Number Group Number Insured Name Patient Relationship to Insured Coverage Start Date Coverage End Date [employer] [address] [place] [phone] [id number] Larisa Dee Self - patient is the insured MEDICARE NGS [address] [place] [phone] [id number] Larisa Dee Self - patient is the insured Medical (General) History Medical History History ICD Code history of iron deficiency celiac disease bunion left foot history of herpes zoster erythrocytosis episode of Raynaud's syndrome October invasive lobular carcinoma, l eft breast,ER+CO+Her-,8mm,N0 Left breast cancer in 2018, Gallbladder surgery in the past June 2017 invasive lobular carcinoma, l eft breast,ER+CO+Her-,8mm Surgical History Surgery Date(Month/Year) Gallbladder surgery Cholecystectomy 09/2022 drainage tonsillar abscess 12/2018 left breast lumpectomy,SN, invasive lobu lar carcinoma 06/2017 Hospitalization History Reason Date(Month/Year) No history tonsilitis 09/2021
--- OUTSIDE RECORDS SUMMARY | 2025-02-04 11:39 | XMS_ITS | Data Portability ---
Author Organization [place] - [facility], Allergy Address [address] [place] [address] Care Team Providers Care Skoog Patching Machine Operator Name Role Phone TIAGO SEAMAN Primary Care Provider [phone] Assessment No assessment recorded. Plan of Treatment [...] By Organization Details Last Modified Time 06/10/2024 [id number] Patient with hig h body mass index [...] Organization Details Recorded Time Peritonsi llar abscess 28102473 Active 2018 Peritonsi llar abscess; Note: Date Diagnosed : 12/19/2018 4:14 PM (J36) Not Available [facility] 4 02:56:17 Recurrent acute streptoco ccal tonsillit is 43667516255 537752 Active 2021 Acute recurrent streptoco ccal tonsillit is; Note: Date Diagnosed : 07/20/2021 10:23 AM (J03.01) Not Available [facility] 4 02:56:17 Chronic tonsillit is 60819441 Active 2021 Chronic tonsillit is; Note: Date Diagnosed : 11/10/2021 3:33 PM (J35.01) Not Available [facility] 4 02:56:16 Snoring 95768083 Active 2024 LUKE CORTEZ MD [address] [facility],[place] [address], [place], [address] , [facility] - [facility] 5 14:08:39 Hypertrop hy of tonsils 61223708 [facility] 2024 LUKE CORTEZ MD [address] [facility],[place] [address], [place], [address] , [facility] - [facility] 14:08:44 Problem Notes None recorded. Procedures Surgical History Date Name Laterality Status Provider Name and Address Organization Details Recorded Time lumpectomy of breast completed LUKE POWER MD [address] [facility],[place] [address], [place], [address], [facility] - [facility] 06/10/2024 14:05:51 incision of gallbladder completed Lynn Belcher [facility] 06/10/2024 14:15:15 Imaging Results None recorded. Procedure Notes None recorded. Medical Equipment None Reported. Allergies Allergen ID Allergen Name Allergen Category Reaction Reaction Severity Criticality Documentation Date Start Date Code Code System Note Provider Name and Address Organization Details Recorded Time 717597 Eggs (edible) (substanc e) food,medi cation other Not available Not available 08/29/2023 03458 3004 SNOMED React ion: unkno wn, unspe cifie d;; Not Available [facility] 4 01:12:27 Medications Name Sig Start Date Stop Date Status Note LastModified by Organization Details LastModified Time losartan 50 mg tablet 07/20 completed Medicati on ID: [id number] D uration Value: 90 Brand Name: losartan [...] 1 mg tablet active Medicati on ID: [id number] B rand Name: marisela ole Send Method: E-Prescr ibed Sub s Allowed: subs OK Speci al Instruct ion: TAKE 1 TABLET BY MOUTH EVERY DAY Medi cationGe nericNam e: anastroz ole Not Available Not Available Not Available clindamyc in HCl 300 mg capsule 1 capsule by mouth 12/29 completed Medicati on ID: [id number] D uration Value: 10 Prescri bed By [...] by mouth 2018 active Medicati on ID: 000535 D uration Value: 5 Prescri bed By [...] mg tablet 07/20 completed Medicati on ID: [id number] B rand Name: losartan -hydroch lorothia zide Sen d Method: E-Prescr ibed Sub s Allowed: subs OK Speci al Instruct ion: TAKE 1 TABLET BY MOUTH EVERY DAY Medi cationGe nericNam e: losartan -hydroch lorothia zide Not Available Not Available Not Available hydrochlo rothiazid e 12.5 mg tablet active Medicati on ID: [id number] B rand Name: hydrochl orothiaz jose Send [...] Updated DateTime 06/10/2024 165.1 cm 36.9 kg/m2 589247.51 g Antionette Galindo [place] - [facility] 06/10/2024 13:53:41 Social History None recorded. Functional Status None recorded. Mental Status None recorded. Family History Nothing Reported. Medical History Condition Response Cancer Y Anxiety Y Tonsil Infections Y High Cholesterol Y GERD/Reflux Y Gynecological HistoryNo gynecological history recorded. Obstetrics History GPAL:G 0 P 0 0 0 0 Past Encounters Encounter ID Performer Location Encounter Start Date Encounter Closed Date Diagnosis/Indication Diagnosis SNOMED-CT Code Diagnosis ICD10 Code Diagnosis IMO Codes Diagnosis Note [id number] LUKE CORTEZ MD [facility] [address] [place] [address] 06/10/2024 13:44:02 06/10/2024 15:22:07 Snoring 83894368 R06.83 Hypertroph y of tonsils 14277664 J35.1 Body mass index 30+ - obesity 153469223 Z68.36 Health Concerns Section Related Observation LastModified by Organization Detai ls LastModified Time None Recorded Concern Status LastModified by Organization Details LastModified Time None Recorded Advance Directives Directive None Recorded Payers Insurance Date Sequence Insurance Name Policy Number Policy Maradiaga Covered Member ID Maradiaga Member ID Guarantor Name 06/10/2024 1 MEDICARE B-[place]: [facility] [employer] Larisa Dee [id number] Larisa Dee 06/10/2024 1 [employer] (MEDICARE REPLACEMENT/A DVANTAGE - PPO) [id number] Larisa Dee [id number] Larisa Dee Notes Date Note Type Note Provider Name and Address Organization Details Recorded Time 06/10/2024 text/html ROS as noted in the HPI Patient previously seen for peritonsillar abscesses. Fortunately she has had no issues since 2021. She has noted snoring and possible apnea. Scheduled for a polysomnogram in July. She has a history of polycythemia, elevated cholesterol, breast cancer and reflux. LUKE POWER MD [address] [place] [address], [place], [address], [facility] - [facility] 06/10/2024 14:10:24 OBGyn Episode No OBEpisode recorded.
== END 2025-02-04 10:02 | disposition home or self-care (01) ==
LOC: HO.BBR 10:01
PROVIDERS: PCP Internal Medicine; Visit Provider Internal Medicine Medical Oncology
DX: D75.1 Secondary polycythemia (principal)
CPT/HCPCS: 36415; 85014; 85018; 85025; 99195

== ENCOUNTER → 2025-02-05 10:46 | Outpatient (REF) | payer MEDICARE, SELFPAY ==
--- OUTSIDE RECORDS SUMMARY | 2023-09-22 11:00 | XMS_ITS ---
Author Organization Rajinder Guerrero III, MD Address [address] [place] [address] Care Team Providers Care Senior Sales Associate Name Role Phone Roderick TAPIA, Bayne Jones [...] W/U Status Risk Notes Problem Polycythemia vera ([id number]) Polycythemia vera (D45) Active confirmed Her polycythemia [...] Date Provider Diagnosis Rajinder Guerrero III, MD [address] [place] [address] [place] [address] 09/22/2023 Rajinder Guerrero Iron deficiency E61. 1 [...] her to the smoking cessation program at [facility]. 09/22/2023 Polycythemia vera (ICD-10 - D45) Her [...] Months, Reason: OV Provider Name:Rajinder Guerrero , 02/21/2025 09:00:00 AM, [address] [place] [address], [place] [address], [place], [address], Progress Notes * LUIZ TamaraoscarDOB:1955 (68 yo F)Acc No.[id number]:09/22/2023 Progress Notes Patient: Larisa Conklin Provider: Oliva Guerrero MD :1955 A ge:68 Y S ex:Female Date:09/22/2023 Address:[address] [place], [place] [id number] Pcp:Deandra Vaughn MD Subjective: * Chief Complaints: [...] x-cigarette smoker S he was born in [place] and is . She has 2 sons and works at [employer] in [place]. * Medications: T akingLORazepam 1 MG Tablet [...] - 09/20/2023) (Collection Date - 09/20/2023)? ValueReference Range?[id number] - ng/mL * Examination: G eneral Examination: [...] her to the smoking cessation program at [facility]. 4. P olycythemia vera - D45, Her [...] 09/22/2023 Generated for Jannie stover/Baljit/Annalise on: 1 01:53 PM EDT History and Physical Notes * [...]
--- OUTSIDE RECORDS SUMMARY | 2024-03-25 14:15 | XMS_ITS ---
Author Organization Rajinder Guerrero III, MD Address [address] [place] [address] [place] [address] Care Team Providers Care Power Technician Name Role Phone Roderick TAPIA, Deandra Primary Care Provider Dr. Rajinder Camargo III Unavailable REASON FOR VISIT Follow-up Social History Sex Assigned At : Social History Observation Description Sex Assigned At Female Encounters Encounter Location Date Provider Diagnosis Rajinder Guerrero III, MD [address] [place] [address] [facility] [place] [address] 03/25/2024 Rajinder Guerrero Plan Of Treatment Next Appt Details Provider Name:Rajinder Guerrero , 02/21/2025 09:00:00 AM, [address] [place] [address] [place], [address], Progress Notes * Larisa DEEDOB:1955 (69 yo F)Acc No.[id number]:03/25/2024 Progress Notes Patient: Larisa BATES Provider: Oliva Guerrero MD :1955 A ge:69 Y S ex:Female Date:03/25/2024 Address:[address] [place], [place] [address] [id number] Pcp:Deandra Vaughn MD Subjective: * Chief Complaints: [...] 1 05/26/2023 Generated for Jannie stover/Baljit/Annalise on: 01:54 PM EDT
--- OUTSIDE RECORDS SUMMARY | 2024-04-18 05:00 | XMS_ITS ---
Author Organization Rajinder Guerrero III, MD Address [address] [place] [address] Care Team Providers Care Trade Promotion Analyst Name Role Phone Roderick TAPIA, [facility] Primary Care Provider Dr. Rajinder Camargo [...] Date Provider Diagnosis Rajinder Guerrero III, MD [address] [place] [address] [place] [address] 04/18/2024 Rajinder Guerrero Iron deficiency E61. 1 [...] the smoking cessation program at [facility]. 04/18/2024 Raynaud's syndrome without gangrene (ICD-10 [...] Provider Name:Rajinder Guerrero , 02/21/2025 09:00:00 AM, [address] [place] [address] [address] [place] [address] [address], [place], [address], Progress Notes * LUIZ LarisaDOB:1955 (69 yo F)Acc No.[id number]:04/18/2024 Progress Notes Patient: Larisa BATES Provider: Oliva Guerrero MD :1955 A ge:69 Y S ex:Female Date:04/18/2024 Address:[address] [place], [place] [phone] Pcp:Deandra Vaughn MD Subjective: * Chief Complaints: [...] N egative S he was born in [place] and is . She has 2 sons and works at [employer] in [place]. Smoking: Occasional, Exercise: Uses an exercise bike. [...] the smoking cessation program at [facility]. 5 . R aynaud's syndrome without [...] 0 04/18/2024 Generated for Jannie stover/Baljit/Annalise on: 01:53 PM EDT History and Physical Notes [...]
--- OUTSIDE RECORDS SUMMARY | 2024-10-17 05:15 | XMS_ITS ---
Author Organization Rajinder Guerrero III, MD Address [address] [place] [address] Care Team Providers Care Protection Specialist Name Role Phone Roderick TAPIA, [facility] Primary Care Provider Dr. Rajinder Camargo III Unavailable [phone] Allergies Allergen (clinical drug ingredient) Drug/Non Drug [...] Date Provider Diagnosis Rajinder Guerrero III, MD [address] [place] [address] [place] [address] 10/17/2024 Rajinder Rodriguesne Iron deficiency E61. 1 [...] her to the smoking cessation program at [facility]. 10/17/2024 Malignant neoplasm of upper-outer quadrant of [...] Provider Name:Rajinder Rodriguesne , 02/21/2025 09:00:00 AM, [address] [place] [address] SATYA CONNOLLY, [place], [address], Progress Notes * Larisa DEEDOB:1955 (69 yo F)Acc No.[id number]:10/17/2024 Progress Notes Patient: Larisa BATES Provider: Oliva Guerrero MD :1955 A ge:69 Y S ex:Female Date:10/17/2024 Address:[address] [place], [place] [phone] Pcp:Deandra Vaughn MD Subjective: * Chief Complaints: [...] urrent smoker S he was born in [place] and is . She has 2 sons and works at [employer] in [place]. Smoking: Occasional, Exercise: Uses an exercise bike. [...] her to the smoking cessation program at [facility]. 4 . M alignant neoplasm of upper-outer [...] 10/17/2024 Generated for Jannie stover/Baljit/Annalise on: 1 01:55 PM EDT History and Physical Notes * [...]
--- OUTSIDE RECORDS SUMMARY | 2024-12-10 12:32 | XMS_ITS ---
Author Organization Rajinder Guerrero III, MD Address [address] [place] [address] Care Team Providers Care Traveling Nurse Name Role Phone Roderick TAPIA, [facility] Primary Care Provider Dr. Rajinder Camargo III Unavailable [phone] REASON FOR VISIT FYI only Social History Sex Assigned At : Social History Observation Description Sex Assigned At Female Encounters Encounter Location Date Provider Diagnosis Rajinder Guerrero III, MD [address] [place] [address] DR [facility] [place] [place] [address] 12/10/2024 Rajinder Guerrero Plan Of Treatment Next Appt Details Provider Name:Rajinder Guerrero , 02/21/2025 09:00:00 AM, [address] [place] [address] [place], [address], Progress Notes * Larisa HERRERADOB:1955 (69 yo F)Acc No.[id number]:12/10/2024 Patient: Larisa BATES :1955 A ge:69 Y S ex:Female Address:[address] [place] [address] * true * Date: Generated for Printi ng/Faxing/eTransmitting on: 01:53 PM EDT
--- NOTE | 2025-02-05 10:49 | CA_ITS ---
Acquisition Time: 2025-02-05 10:55:33 Total Exercise Time: 00:23:23 Test Indications: PREOP Medications: SEE H&P Protocol: DOBUTAMINE Max HR: 136 BPM 89% of Pred: 152 BPM Max BP: 140/70 mmHG Max Work Load: 1.0 METS Pharmacological stress test with Dobutamine infusion max at 40mcg/kg/min, achieving 88% MPHR, with reports of back pain, no CP or SOB, without any arrythmias, with normotensive response to infusion. Without any EKG changes meeting criteria for ischemia. In recovery, pt continued to do well. Back pain improved. Echo images obtained by tech at rest, mid infusion, and post peak HR. Definity contrast utilized. Test reviewed with Dr. Argueta. Referred By: David Santana Electronically Signed By: Bennett Guzman
--- OUTSIDE RECORDS SUMMARY | 2025-02-05 13:54 | XMS_ITS | Patient Health Record ---
Author Organization [facility] Address [address] [place] [address] Care Team Providers Care Trackwalker Name Role Phone Deandra Vaughn Primary Care [...] Status Risk Notes Problem Colon cancer screening (622358600) Colon cancer screening (Z12.11) Active confirmed Problem Flatulence, eructation and gas pain (718725267) Bloating (R14.0) Active confirmed Problem Gastroesophageal reflux disease (929481112) GERD (gastroesophageal reflux disease) (K21.9) Active confirmed Problem Gastroesophageal reflux disease (624080246) Gastroesophageal reflux disease, unspecified whether esophagitis present (K21.9) Active confirmed Plan Of Treatment Future Test Test Name Order Date UPPER GI ENDOSCOPY 01/04/2023 COLONOSCOPY 01/04/2023 Insurance Providers Payer Name Payer Address Payer Phone Subscriber Number Group Number Insured Name Patient Relationship to Insured Coverage Start Date Coverage End Date A[employer] (No Referra l) [address] [address] [place] [address] [id number] PIYUSH DEE Self - patient is the insured Medical (General) History Medical History History ICD Code Hypertension Hyperlipidemia Left breast cancer, XRT and hormonal the rapy Polycythemia Anxiety Recent seizures, MRI of the brain pendin g Colonoscopy 07/25/08, hyperplastic polyps x2, ten-year followup Surgical History Surgery Date(Month/Year) Left breast cancer, lumpectomy/axillary node dissection 08/02 Cholecystectomy 10/07
--- OUTSIDE RECORDS SUMMARY | 2025-02-05 13:54 | XMS_ITS | Patient Health Record ---
Author Organization Rajinder Guerrero III, MD Address [address] [place] [address] Care Team Providers Care Crib Clerk Name Role Phone Roderick TAPIA, [facility] Primary Care Provider Dr. Rajinder Camargo III Unavailable [phone] Allergies Allergen (clinical drug ingredient) Drug/Non Drug Allergy documented on EMR Reaction Allergy Type Onset Date Status No Known Drug Allergy Unknown Drug Allergy Active Results Component Value Reference Range Notes Complete Blood Count Auto Di ff Reviewed date:04/08/2024 06:11:33 AM Interpretation: Performing Lab:[facility], [address] [place] [phone] Notes/Report: White Blood Count 11.0 4.8-10.8 X10*3/uL [...] Phlebotomy Reviewed date:04/08/2024 06:11:33 AM Interpretation: Performing Lab:[facility], [address] [place] [phone] Notes/Report: THER/HGB TNP 12.0-16.0 g/dL Lab Results on file. Performed at [facility] on 03/26/24: Hgb: 13.5 g/dl Hct: 41.7 % THER/HCT TNP 37.0-47.0 % Therapeutic Phlebotomy Phlebotomy Performed 500 mls drawn on 03/26/24. Please note that a copy of this report has been sent to the Primary Care Physician, the ordering physician and any physician designated by patient request. Complete Blood Count Auto Di ff Reviewed date:06/09/2024 09:13:32 AM Interpretation: Performing Lab:[facility], [address] [place] [phone] Notes/Report: White Blood Count 8.9 4.8-10.8 X10*3/uL [...] Phlebotomy Reviewed date:06/09/2024 09:13:32 AM Interpretation: Performing Lab:[address] [phone] Notes/Report: THER/HGB TNP 12.0-16.0 g/dL Lab Results on file. Performed at [facility] on 05/28/24: Hgb: 13.1 g/dl [...] ff Reviewed date:08/03/2024 07:24:43 AM Interpretation: Performing Lab:[facility], [address] [place] [phone] Notes/Report: White Blood Count 8.5 4.8-10.8 X10*3/uL [...] Phlebotomy Reviewed date:08/03/2024 07:24:43 AM Interpretation: Performing Lab:[facility], [address] [place] [phone] Notes/Report: THER/HGB TNP 12.0-16.0 g/dL Lab Results on file. Performed at [facility] on 07/30/24: Hgb: 12.5 g/dl [...] ff Reviewed date:10/02/2024 01:20:13 PM Interpretation: Performing Lab:[facility], [address] [place] [phone] Notes/Report: White Blood Count 8.6 4.8-10.8 X10*3/uL [...] Phlebotomy Reviewed date:10/02/2024 01:20:13 PM Interpretation: Performing Lab:[facility], [address] [place] [phone] Notes/Report: THER/HGB TNP 12.0-16.0 g/dL Lab Results on file. Performed at [facility] on 10/01/24: Hgb: 12.1 g/dl Hct: [...] ff Reviewed date:12/02/2024 01:40:01 PM Interpretation: Performing Lab:[facility], [address] [place] [phone] Notes/Report: White Blood Count 8.0 4.8-10.8 X10*3/uL [...] Phlebotomy Reviewed date:12/02/2024 01:40:01 PM Interpretation: Performing Lab:[facility], [address] [place] [phone] Notes/Report: THER/HGB TNP 12.0-16.0 g/dL Lab Results on file. Performed at [facility] on 12/02/24: Hgb: 12.1 g/dl Hct: [...] (Not yet reviewed by provider) Interpretation: Performing Lab:[facility], [address] [place] [phone] Notes/Report: White Blood Count 7.1 4.8-10.8 X10*3/uL [...] (Not yet reviewed by provider) Interpretation: Performing Lab:[facility], [address] [place] [phone] Notes/Report: THER/HGB TNP 12.0-16.0 g/dL Lab Results on file. Performed at [facility] on 02/04/25: Hgb: 11.5 g/dl Hct: 34.9 % THER/HCT TNP 37.0-47.0 % Therapeutic Phlebotomy [...] Problem Status W/U Status Risk Notes Problem 585371291 Obesity (E66.9) Active confirmed Her body mass index is 40. We discussed her diet and nutrition. We made a plan to lose weight at a rate of one half of a pound per week. Problem Postmenopausal state (94739359) Post-menopausal (Z78.0) Active confirmed She has not had a period in several years. Problem Polycythemia vera (421947432) Polycythemia vera (D45) Active confirmed Her polycythemia is stable and her hematocrit is in the normal range. She will have the CBC done every 2 months instead of one now that she is stable. She will avoid taking iron-containin g medications. Problem 11940804 Iron deficiency (E61.1) Active confirmed She is no longer anemic and a mean cell volume is macrocytic. She'll be observed carefully. The iron will be continued. Comprehensive blood work with a ferritin has been ordered.She has been phlebotomize continuously. Close observation will occur and. Treatment used if necessary. Problem 109881241 Raynaud's syndrome without gangrene (I73.00) Active confirmed No further episodes of Raynaud's syndrome have occurred since her last visit. Problem 52576324 Tobacco dependence (F17.200) Active confirmed She continues to smoke and I have made her aware of the health consequences doing so. I have referred her to the smoking cessation program at [facility]. Problem 332939580 Erythrocytosis (D75.1) Active confirmed She will continue the phlebotomy if needed. At this time her hematocrit and hemoglobin are normal. Currently, the increased red cell mass is well controlled. Problem 606460777 Morbid obesity (E66.01) Active confirmed She has [...] neoplasm of upper-outer quadrant of female breast (917229227) Malignant neoplasm of upper-outer quadrant of left female breast, unspecified estrogen receptor status (C50.412) Active confirmed She continues with surveillance mammography and breast self examination. There was no sign of metastatic disease or recurrence today. Her anastrozole was continued. Problem 245983368 Lobular carcinoma of left breast, stage 1 [...] Date Provider Diagnosis Rajinder Guerrero III, MD [address] [place] [address] [place] [phone] 04/18/2024 Rajinder Guerrero Iron deficiency E61. 1 ; Polycythemia vera D45 ; Celiac disease K90.0 ; Tobacco dependence F17.200 ; Raynaud's syndrome without gangrene I73.00 ; Malignant neoplasm of upper-outer quadrant of left female breast, 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 and Morbid obesity E66.01 Rajinder Guerrero III, MD [address] [place] [address] [place] [phone] 10/17/2024 Rajinder Guerrero Iron deficiency E61. 1 ; Polycythemia vera D45 ; Tobacco dependence F17.200 ; Malignant neoplasm of upper-outer quadrant of left female breast, 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 and Morbid obesity E66.01 Rajinder Guerrero III, MD [address] [place] [address] [place] [phone] 12/10/2024 Rajinder Guerrero Assessments Encounter Date Diagnosis [...] her to the smoking cessation program at [facility]. 04/18/2024 Tobacco dependence (ICD-10 - F17.200) She continues to smoke and I have made her aware of the health consequences doing so. I have referred her to the smoking cessation program at [facility]. 10/17/2024 Malignant neoplasm of upper-outer [...] DIFF 09/22/2023 Complete Blood Count Auto Diff 5 RETIC 06/30/2021 Ferritin 10/17/2024 Ferritin 05/19/2023 Ferritin 04/18/2024 Ferritin 06/30/2021 Ferritin 09/22/2023 Lipid Panel 04/18/2024 Folate 06/30/2021 Therapeutic Phlebotomy 02/04/2025 Next Appt Details Provider Name:Rajinder Guerrero , 02/21/2025 09:00:00 AM, [address] [place] [address] , [address], [place], [phone], Insurance Providers Payer Name Payer Address Payer Phone Subscriber Number Group Number Insured Name Patient Relationship to Insured Coverage Start Date Coverage End Date [employer] [address] [place] [phone] [id number] Larisa Dee Self - patient is the insured MEDICARE NGS [address] [place] [phone] [id number] Larisa Dee Self - patient is the insured Medical (General) History Medical History History ICD Code history of iron deficiency celiac disease bunion left foot history of herpes zoster erythrocytosis episode of Raynaud's syndrome October invasive lobular carcinoma, l eft breast,ER+MI+Her-,8mm,N0 Left breast cancer in 2018, Gallbladder surgery in the past June 2017 invasive lobular carcinoma, l eft breast,ER+MI+Her-,8mm Surgical History Surgery Date(Month/Year) Gallbladder surgery Cholecystectomy 09/2022 drainage tonsillar abscess 12/2018 left breast lumpectomy,SN, invasive lobu lar carcinoma 06/2017 Hospitalization History Reason Date(Month/Year) No history tonsilitis 09/2021
== END ==
LOC: HO.CARD 10:46
PROVIDERS: PCP Internal Medicine; Visit Provider Surgery
DX: Z01.810 Encounter for preprocedural cardiovascular examination (principal); R94.31 Abnormal electrocardiogram [ECG] [EKG]
CPT/HCPCS: 93351; J1250; Q9957

== ENCOUNTER → 2025-02-05 10:49 | Outpatient (BNV) | payer MEDICARE, SELFPAY | PROVIDERS: PCP Internal Medicine | DX: R94.31 Abnormal electrocardiogram [ECG] [EKG] (principal) | CPT/HCPCS: 93016; 93018; 93350; 93352 ==

== ENCOUNTER 2025-03-01 09:35 | Outpatient (REF) | payer MEDICARE, SELFPAY ==
--- NOTE | ~2025-03-01 | CT_ITS ---
CLINICAL HISTORY: I27.20 - Pulmonary hypertension, unspecified CT chest without contrast Comparison: Chest x-ray from 12/23/[address] of the abdomen from 09/19/2022, given liver lesion Findings: With regards to reported pulmonary hypertension main pulmonary artery, right main pulmonary artery, and left main pulmonary artery are mildly dilated with main pulmonary artery measuring 3.3 cm diameter in this noncontrast study. Pulmonary embolism not excluded without contrast. Mild emphysematous changes noted, including imaged lung apices. 3 mm pulmonary nodule abuts pleural surface in the right upper lobe laterally. Additional sub 4 mm bilateral pulmonary nodules are nonspecific by CT. Mild bibasilar atelectasis and bilateral peripheral scarring noted. Mild bronchiectasis including right lower lobe (350 of series 3). No consolidation. No pneumothorax or pleural effusion. Small mediastinal lymph nodes are nonspecific and may be reactive. Right paratracheal lymph node measures 5 mm short axis. Moderate cardiomegaly with multi chamber enlargement of the heart. Vascular calcifications include imaged aorta and its branches in this noncontrast study. 1.7 cm low-density lesion in the left lobe of the liver is not characterize without contrast. Mild fat deposition also noted in the liver. The spleen is nonenlarged. Mild volume loss of the imaged pancreas noted. The gallbladder is surgically absent. Degenerative disc changes, Schmorl's nodes, and facet arthropathy are multifocal. Fusion of the sternum and manubrium. Minimal rib deformities appear old/chronic. IMPRESSION: 1. Mild bibasilar atelectasis. 2. Combination of mild emphysematous changes and peripheral scarring. 3. Mild pulmonary artery dilatation in this noncontrast study as can be seen with reported pulmonary hypertension. 4. 1.7 cm low-density lesion of the liver is nonspecific. Recommend outpatient liver mass imaging for additional characterization, given increase in size compared to 09/19/2022. This document has been electronically signed by: Ron Elizondo MD on 03/01/2025 11:45:59
--- OUTSIDE RECORDS SUMMARY | 2025-03-01 09:39 | XMS_ITS | Data Portability ---
Author Organization [place] - [facility], Allergy Address [address] [place] [address] Care Team Providers Care Process Design Engineer Name Role Phone TIAGO SEAMAN Primary Care [...] By Organization Details Last Modified Time 06/10/2024 24460 Patient with hig h body mass index [...] Organization Details Recorded Time Peritonsi llar abscess 55473935 Active 2018 Peritonsi llar abscess; Note: Date Diagnosed : 12/19/2018 4:14 PM (J36) Not Available [facility] 4 02:56:17 Recurrent acute streptoco ccal tonsillit is 17095056441 156872 Active 2021 Acute recurrent streptoco ccal tonsillit is; Note: Date Diagnosed : 07/20/2021 10:23 AM (J03.01) Not Available [facility] 4 02:56:17 Chronic tonsillit is 58510233 Active 2021 Chronic tonsillit is; Note: Date Diagnosed : 11/10/2021 3:33 PM (J35.01) Not Available [facility] 4 02:56:16 Snoring 81342804 Active 2024 LUKE CORTEZ MD [address] [address], [place], [address] , [facility] - [facility] 5 14:08:39 Hypertrop hy of tonsils 38489379 [facility] 2024 LUKE CORTEZ MD [address],[place] [address], [place], [address] , [facility] - [facility] 14:08:44 Problem Notes None recorded. Procedures Surgical History Date Name Laterality Status Provider Name and Address Organization Details Recorded Time lumpectomy of breast completed LUKE POWER MD [address],[place] [address], [place], [address], [facility] - [facility] 06/10/2024 14:05:51 incision of gallbladder completed Lynn Belcher [facility] 06/10/2024 14:15:15 Imaging Results None recorded. Procedure Notes None recorded. Medical Equipment None Reported. Allergies Allergen ID Allergen Name Allergen Category Reaction Reaction Severity Criticality Documentation Date Start Date Code Code System Note Provider Name and Address Organization Details Recorded Time 725510 Eggs (edible) (substanc e) food,medi cation other Not available Not available 08/29/2023 81219 3004 SNOMED React ion: unkno wn, unspe cifie d;; Not Available [facility] 4 01:12:27 Medications Name Sig Start Date Stop Date Status Note LastModified by Organization Details LastModified Time losartan 50 mg tablet 07/20 completed Medicati on ID: [id number] D uration Value: 90 Brand Name: losartan [...] 1 mg tablet active Medicati on ID: [id number] B rand Name: marisela ole Send Method: E-Prescr ibed Sub s Allowed: subs OK Speci al Instruct ion: TAKE 1 TABLET BY MOUTH EVERY DAY Medi cationGe nericNam e: anastroz ole Not Available Not Available Not Available clindamyc in HCl 300 mg capsule 1 capsule by mouth 12/29 completed Medicati on ID: [id number] D uration Value: 10 Prescri bed By [...] by mouth 2018 active Medicati on ID: [id number] D uration Value: 5 Prescri bed By [...] mg tablet 07/20 completed Medicati on ID: [id number] B rand Name: losartan -hydroch lorothia zide Sen d Method: E-Prescr ibed Sub s Allowed: subs OK Speci al Instruct ion: TAKE 1 TABLET BY MOUTH EVERY DAY Medi cationGe nericNam e: losartan -hydroch lorothia zide Not Available Not Available Not Available hydrochlo rothiazid e 12.5 mg tablet active Medicati on ID: [id number] B rand Name: hydrochl orothiaz jose Send [...] Updated DateTime 06/10/2024 165.1 cm 36.9 kg/m2 346888.51 g Antionette Galindo [place] - [facility] 06/10/2024 13:53:41 Social History None recorded. [...] ICD10 Code Diagnosis IMO Codes Diagnosis Note [id number] LUKE CORTEZ MD [facility] [address] [place] [address] 06/10/2024 13:44:02 06/10/2024 15:22:07 Snoring 09482652 R06.83 Hypertroph y of tonsils 37338386 J35.1 Body mass index 30+ - obesity 605250637 Z68.36 Health Concerns Section Related Observation LastModified by Organization Detai ls LastModified Time None Recorded Concern Status LastModified by Organization Details LastModified Time None Recorded Advance Directives Directive None Recorded Payers Insurance Date Sequence Insurance Name Policy Number Policy Maradiaga Covered Member ID Maradiaga Member ID Guarantor Name 06/10/2024 1 MEDICARE B-[place]: [facility] [employer] Larisa Dee [id number] Larisa Dee 06/10/2024 1 [employer] (MEDICARE REPLACEMENT/A DVANTAGE - PPO) [id number] Larisa Dee [id number] Larisa Dee Notes Date Note Type Note [...] breast cancer and reflux. LUKE POWER MD [address] [place] [address], [place], [address], [facility] - [facility] 06/10/2024 14:10:24 OBGyn Episode No OBEpisode recorded.
== END 2025-03-01 09:36 | disposition home or self-care (01) ==
LOC: HO.CT 09:35
PROVIDERS: PCP Internal Medicine; Visit Provider Surgery
DX: I27.20 Pulmonary hypertension, unspecified (principal)
CPT/HCPCS: 71250

== ENCOUNTER → 2025-03-01 09:41 | Outpatient (BNV) | payer MEDICARE, SELFPAY | PROVIDERS: PCP Internal Medicine; Visit Provider Radiology Neuroradiology | DX: J98.11 Atelectasis (principal); I28.8 Other diseases of pulmonary vessels; J43.9 Emphysema, unspecified | CPT/HCPCS: 71250 ==

== ENCOUNTER → 2025-03-04 09:53 | Outpatient (REF) | payer MEDICARE, SELFPAY ==
--- NOTE | 2025-03-04 09:57 | CA_ITS ---
Transthoracic Echocardiogram Patient (Last, First, Middle): Larisa Dee, Gender: F Date of : 1955 Age: 69 Procedure Date: 03/04/2025 Procedure Type: Transthoracic Echocardiogram Location: OP Height: 165.1 cm Weight: 100.25 kg BSA: 2.06 m2 Heart Rate: bpm BP: 124 / 60 mmHg Outside Contractor Sales: Referring MD: David Santana MD Symptoms: I51.7 - Cardiomegaly Study Quality: Adequate ECG Rhythm: Sinus Conclusions: - The left ventricular systolic function is hyperdynamic. The visually estimated ejection fraction is >70%. - Possible basal inferior hypokinesis, but difficult to assess. - Evidence suggests grade II (moderate) diastolic dysfunction. - No obvious valvular pathology seen on this study. Findings Procedure Information Contrast agent, definity, is being given per protocol without apparent complications. Left Ventricle Normal left ventricular cavity size. There is normal left ventricular wall thickness. The left ventricular systolic function is hyperdynamic. The visually estimated ejection fraction is >70%. Evidence suggests grade II (moderate) diastolic dysfunction. Possible basal inferior hypokinesis, but difficult to assess. Right Ventricle Normal right ventricular cavity size and systolic function. Atria Both atria are normal in size. Aortic Valve There is mild calcification of the aortic valve. There is no aortic valve stenosis. There is no aortic valve regurgitation. Mitral Valve The mitral valve appears normal. There is trace mitral valve regurgitation. There is no mitral valve stenosis. Pulmonic Valve The pulmonic valve is likely normal. Tricuspid Valve There is trace tricuspid valve regurgitation. There is no evidence of pulmonary hypertension. Great Vessels The asc aorta is normal in size. Venous The inferior vena cava is normal in size and collapses greater than 50% with inspiration. Pericardium/Pleural There is no evidence of pericardial effusion. Prior Study Comparison No prior study available for comparison. Recommendations, Care & Conclusions No obvious valvular pathology seen on this study. Measurements 2D Linear Measurements IVSd: 0.97 0.6-0.9/0.6-1.0 cm LVIDd: 4.97 3.9-5.3/4.2-5.9 cm LVIDd Index: 2.41 2.4-3.2/2.2-3.1 cm/m2 LVIDs: 3.36 2.0-3.6 cm LVPWd: 1.00 0.7-1.1 cm Ao Root: 2.90 2.1-3.5 cm LA Diam: 4.50 2.7-3.8/3.0-4.0 cm LAIDs Index: 2.18 1.5-2.3 cm/m2 LV Mass: 219.35 67-162/88-224 g LV Mass Index: 106.48 43-95/49-115 g/m2 LVOT Diam: 2.20 3.0+(-)1.3 cm 2D Systolic Function EF 4C: 77.50 >55% EF 2C: 63.70 >55% EF BiP: 71.00 >55% Mitral Valve MV VTI: 0.51 MV Pk Steven: 1.10 MV Mn Steven: 0.55 MV Pk Grad: 5.00 MV Mn Grad: 2.00 MV Pk E: 0.97 MV PK A: 0.81 MV Decel Time: 171.00 E/A: 1.20 E'Lateral: 8.05 E'Medial: 5.87 E/E' Med: 16.60 E/E' Lat: 12.10 PHT: 50.00 MVA PHT: 4.40 MVA Continuity: 2.40 Decel Stokes: 5.70 Aortic Valve AoV Pk Steven: 1.65 AoV Mn Steven: 1.03 AoV VTI: 0.47 AoV Pk Grad: 11.00 Aov Mn Grad: 5.00 SENAIT Cont.VTI: 2.60 LVOT LVOT Pk Steven: 1.16 LVOT Mn Steven: 0.69 LVOT VTI: 0.32 LVOT Pk Grad: 5.00 LVOT Mn Grad: 2.00 LVOT Diam: 2.20 LVOT Area: 3.80 Diastolic Function MV Pk E: 0.97 MV Pk A: 0.81 E/A: 1.20 E'Medial: 5.87 E/E' Med: 16.60 E' Laterial: 8.05 E/E' Lat: 12.10 Right Ventricle TAPSE (mm): 34.00 TVS' Steven: 12.00 Tricuspid Valve TR Pk Steven: 1.94 TR Pk Grad: 15.00 RA Press: 3.00 RVSP: 18.00 Great Vessels Aorta Ao Root-2D: 2.90 2.0-3.7 cm Ao Asc: 3.20 2.1-3.4 cm Pulmonary Veins Pulm Vein S/D 1.20 Pulmonary Valve PV Pk Steven: 1.07 Peak PV Grad: 5.00 Updated in Other Vendor System with Status of Final Dat Thompson MD electronically signed on 03/04/2025 3:28:46 PM with status of Final
== END ==
LOC: HO.CARD 09:53
PROVIDERS: PCP Internal Medicine Medical Oncology; Visit Provider Surgery
DX: I51.7 Cardiomegaly (principal)
CPT/HCPCS: 93306; Q9957

== ENCOUNTER → 2025-03-04 09:57 | Outpatient (BNV) | payer MEDICARE, SELFPAY | PROVIDERS: PCP Internal Medicine Medical Oncology; Visit Provider Internal Medicine | DX: I51.7 Cardiomegaly (principal); I51.89 Other ill-defined heart diseases | CPT/HCPCS: 93306 ==

== ENCOUNTER 2025-03-10 08:36 | Outpatient (AMB) | payer MEDICARE, SELFPAY ==
--- OUTSIDE RECORDS SUMMARY | 2023-09-22 10:00 | XMS_ITS ---
Author Organization Rajinder Guerrero III, MD Address [address] [place] [address] Care Team Providers Care Outboard System Operator Name Role Phone Roderick TAPIA, [facility] Primary Care Provider Dr. Rajinder [...] W/U Status Risk Notes Problem Polycythemia vera ([id number]) Polycythemia vera (D45) Active confirmed Her polycythemia [...] Date Provider Diagnosis Rajinder Guerrero III, MD [address] [place] [address] [place] [address] 09/22/2023 Rajinder Guerrero Iron deficiency E61. 1 [...] her to the smoking cessation program at [facility]. 09/22/2023 Polycythemia vera (ICD-10 - D45) [...] Provider Name:Rajinder Guerrero , 06/23/2025 09:45:00 AM, [address] [place] [address], [place] [address], [place], [address], Progress Notes * SHARON TamaraoscarDOB:1955 (68 yo F)Acc No.[id number]:09/22/2023 Progress Notes Patient: Larisa Conklin Provider: Oliva Guerrero MD :1955 A ge:68 Y S ex:Female Date:09/22/2023 Address:[address] [place], [place] [id number] Pcp:Deandra Vaughn MD Subjective: * Chief Complaints: [...] x-cigarette smoker S he was born in [place] and is . She has 2 sons and works at [employer] in [place]. * Medications: T akingLORazepam 1 MG Tablet [...] - 09/20/2023) (Collection Date - 09/20/2023)? ValueReference Range?[id number] - ng/mL * Examination: G eneral Examination: [...] her to the smoking cessation program at [facility]. 4. P olycythemia vera - D45, [...] 0 09/22/2023 Generated for Jannie stover/Baljit/Annalise on: 05/10/2024 08:54 AM EST History and Physical Notes * HPI [...]
--- OUTSIDE RECORDS SUMMARY | 2024-03-25 13:15 | XMS_ITS ---
Author Organization Rajinder Guerrero III, MD Address [address] [place] [address] [place] [address] Care Team Providers Care Rn Cardiology Name Role Phone Roderick TAPIA, Deandra Primary Care Provider Dr. Rajinder Camargo III Unavailable REASON FOR VISIT Follow-up Social History Sex Assigned At : Social History Observation Description Sex Assigned At Female Encounters Encounter Location Date Provider Diagnosis Rajinder Guerrero III, MD [address] [place] [address] [facility] [place] [address] 03/25/2024 Rajinder Guerrero Plan Of Treatment Next Appt Details Provider Name:Rajinder Guerrero , 06/23/2025 09:45:00 AM, [address] [place] [address] [place], [address], Progress Notes * Larisa DEEDOB:1955 (70 yo F)Acc No.[id number]:03/25/2024 Progress Notes Patient: Larisa BATES Provider: Oliva Guerrero MD :1955 A ge:69 Y S ex:Female Date:03/25/2024 Address:[address] [place], [place] [address] [id number] Pcp:Deandra Vaughn MD Subjective: * Chief Complaints: [...] Date: 05/26/2023 Generated for Jannie stover/Baljit/Annalise on: 05/10/2024 08:55 AM EST
--- OUTSIDE RECORDS SUMMARY | 2024-04-18 04:00 | XMS_ITS ---
Author Organization Rajinder Guerrero III, MD Address [address] [place] [address] Care Team Providers Care Violin Restorer Name Role Phone Roderick TAPIA, [facility] Primary Care Provider Dr. Rajinder Camargo III Unavailable Allergies Allergen (clinical drug ingredient) Drug/Non Drug Allergy documented on EMR Reaction Allergy Type Onset Date Status No Known Drug Allergy Unknown Drug Allergy Active REASON FOR VISIT Polycythemia vera, Morbid Obesity, Tobacco dependence, Carcinoma left breast Medications Medication SIG (Take, Route, Frequency, Duration) Notes Start Date End Date Status Pravastatin Sodium 40 MG 1 tablet Orally Once a day Active Diclofenac Sodium 75 MG TAKE 1 TABLET BY MOUTH TWICE A DAY Oral Active Losartan Potassium-HCTZ 100-25 MG TAKE 1 TABLET BY MOUTH EVERY DAY Oral Active Social History Tobacco Use: Social History [...] Never (0 point) Points 2 Interpretation Negative Vital Signs Temperature 98.1 degrees Fahrenheit 04/18/19 25 Blood pressure systolic 139 mm Hg 04/18/19 25 Blood pressure diastolic 78 mm Hg 025 Heart Rate 80 /min 04/18/2024 Height 65 in 04/18/2024 Weight 243 lbs 04/18/2024 BMI 40.43 kg/m2 04/18/2024 Encounters Encounter Location Date Provider Diagnosis Rajinder Guerrero III, MD [address] [place] [address] [place] [address] 04/18/2024 Rajinder Guerrero Iron deficiency E61. 1 ; Polycythemia vera D45 ; Celiac disease K90.0 ; Tobacco dependence F17.200 ; Raynaud's syndrome without gangrene I73.00 ; Malignant neoplasm of upper-outer quadrant of left female breast, 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 and Morbid obesity E66.01 Assessments Encounter Date Diagnosis (ICD Code) Assessment Notes Treatment Notes Treatment Clinical Notes 04/18/2024 Iron deficiency (ICD-10 - E61.1) She is no longer anemic and a mean cell volume is macrocytic. She'll be observed carefully. The iron will be continued. Comprehensive blood work with a ferritin has been ordered.She has been phlebotomize continuously. Close observation will occur and. Treatment used if necessary. 04/18/2024 Polycythemia vera (ICD-10 - D45) Her polycythemia is stable and her hematocrit is in the normal range. She will have the CBC done every 2 months instead of one now that she is stable. She will avoid taking iron-containing medications. 04/18/2024 Celiac disease (ICD-10 - K90.0) She has had no change in her gastrointestinal symptoms. Her weight is stable and she seems happy and well. No treatment is necessary today. 04/18/2024 Tobacco dependence (ICD-10 - F17.200) She continues to smoke and I have made her aware of the health consequences doing so. I have referred her to the smoking cessation program at [facility]. 04/18/2024 Raynaud's syndrome without gangrene (ICD-10 - I73.00) No further episodes of Raynaud's syndrome have occurred since her last visit. 04/18/2024 Malignant neoplasm of upper-outer quadrant of left female breast, unspecified estrogen receptor status (ICD-10 - C50.412) She continues with surveillance mammography and breast self examination. There was no sign of metastatic disease or recurrence today. Her anastrozole was continued. 04/18/2024 Morbid obesity (ICD-10 - E66.01) She has gained 8 pounds and her body mass index is now 40. We have reviewed diet and nutrition. We have made a plan to lose weight at a rate of one half of a pound per week through a diet restricted in fat calories and sodium combined with regular physical activity. Plan Of Treatment Medication Medication Name Sig Start Date Stop Date Notes Pravastatin Sodium 40 MG 1 tablet Orally Once a day Diclofenac Sodium 75 MG TAKE 1 TABLET BY MOUTH TWICE A DAY Oral Losartan Potassium-HCTZ 100- 25 MG TAKE 1 TABLET BY MOUTH EVERY DAY Oral Pending Test Test Name Order Date PROFILE, FASTING (COMPREHENSIVE METABOLI C) 04/18/2024 CBC w DIFF 04/18/2024 Ferritin 04/18/2024 Lipid Panel 04/18/2024 Next Appt Details Follow Up: 6 Months, In six months, Reason: ov review labs, Routine follow-up Provider Name:Rajinder Guerrero , 06/23/2025 09:45:00 AM, [address] [place] [address] [address] [address], [place], [address], Progress Notes * LUIZ LarisaDOB:1955 (69 yo F)Acc No.[id number]:04/18/2024 Progress Notes Patient: Larisa BATES Provider: Oliva Guerrero MD :1955 A ge:69 Y S ex:Female Date:04/18/2024 Address:[address] [place], [place] [phone] Pcp:Deandra Vaughn MD Subjective: * Chief Complaints: * P olycythemia veraMorbid ObesityTobacco dependenceCarcinoma left breast * HPI: C OVID-19 Screening: Questions H ave you had any new onset fever, chills, cough, congestion, sore throat, shortness of breath, muscle aches? Y es Muscle Aches * : The patient, a 69-year-old female, has been experiencing bloating regardless of her diet. She has had a colonoscopy and was tested for celiac disease, but the results were negative. However, she still experiences bloating. She also mentioned that she has been losing weight and has been using an exercise bike. She has a history of left breast cancer from 2018, but currently, she reports no troubles with her breasts. She also mentioned that she has been putting ointment in her ears for the past few days. She occasionally smokes and is hoping to quit by her birthday in May. She has lost 2 pounds since her last visit and her body mass index is 40. We discussed lifestyle modification she could make to lose weight. She has been examining her breasts and has had no findings. Her examination today as well was normal. No change was made in her regimen. She has continued to need phlebotomy but her hematocrit is 40%. * ROS: G eneral/Constitutional: pain o nly [...] have been noted. G enitourinary: Frequent urination d enies. M usculoskeletal: Muscle aches d enies. P ainful joints d enies. S ciatica d enies. W eakness d enies. S kin: Itching d enies. R alesha d enies. S kin lesion(s)?denies. N eurologic: Difficulty speaking d enies. D izziness d enies.?Headache d enies. L ow back pain d enies. P sychiatric: Depressed mood d enies. C ancer Self-Management: Admits C olonoscopy. * Medical History: * Surgical History: l eft breast lumpectomy,SN, invasive lobular carcinoma 06/2017drainage tonsillar abscess 12/2018Cholecystectomy allbladder surgery * Hospitalization/Major Diagno stic Procedure: t onsilitis 09/2021No history * Family History: F ather: 60 yrs, brain cancer, hypertension, diagnosed with Cancer. M other: 68 yrs, stroke,angina. S on(s): alive. 6 brother(s) , 1 sister(s) . 2 son(s) - healthy. . Two brothers have hypertension. One brother was diagnosed with RSD. His oldest son has celiac disease. * Social History: T obacco Use: T obacco Use/Smoking P atient is a c urrent smoker D rugs/Alcohol: D rugs H ave you used drugs other than those for medical reasons in the past 12 months? N o Alcohol Screen D id you have a drink containing alcohol in the past year? Y es H ow often did you have a drink containing alcohol in the past year? 2 to 4 times a month (2 points) H ow many drinks did you have on a typical day when you were drinking in the past year? 1 or 2 drinks (0 point) H ow often did you have 6 or more drinks on one occasion in the past year? N ever (0 point) P oints 2 I nterpretation N egative S he was born in [place] and is . She has 2 sons and works at [employer] in [place]. Smoking: Occasional, Exercise: Uses an exercise bike. * Medications: T akingPravastatin Sodium 40 MG Tablet 1 tablet Orally Once a day Losartan Potassium-HCTZ 100-25 MG Tablet TAKE 1 TABLET BY MOUTH EVERY DAY Oral Diclofenac Sodium 75 MG Tablet Delayed Release TAKE 1 TABLET BY MOUTH TWICE A DAY Oral Taking Pravastatin Sodium 40 MG Tablet 1 tablet Orally Once a day Taking Losartan Potassium-HCTZ 100-25 MG Tablet TAKE 1 TABLET BY MOUTH EVERY DAY Oral Taking Diclofenac Sodium 75 MG Tablet Delayed Release TAKE 1 TABLET BY MOUTH TWICE A DAY Oral DiscontinuedLORazepam 1 MG Tablet 1 tablet Orally once a day Losartan Potassium 50 MG Tablet 1 tablet Orally Once a day Medication List reviewed and reconciled with the patientDiscontinued LORazepam 1 MG Tablet 1 tablet Orally once a day Discontinued Losartan Potassium 50 MG Tablet 1 tablet Orally Once a day Medication List reviewed and reconciled with the patient * Allergies: N o Known Drug Allergyno[Allergies Verified] Objective: * Vitals: H t: 65, Wt:243, BMI:40.43, BP:139/78, HR:80, Temp:98.1, Wt-k.22. * P ast Orders: Lab:Therapeutic Phlebotomy * Collection Date 03/26/2024 01/24/2024 12/06/2023 Collection Time 02:07 PM 02:00 PM Order Date 03/26/2024 01/24/2024 12/06/2023 THER/HCT TNP (Ref Range: 37.0-47.0 %) TNP (Ref Range: 37.0-47.0 %) TNP (Ref Range: 37.0-47.0 %) THER/HGB TNP (Ref Range: 12.0-16.0 g/dL) TNP (Ref Range: 12.0-16.0 g/dL) TNP (Ref Range: 12.0-16.0 g/dL) Therapeutic Phlebotomy Phlebotomy Perfor med Phlebotomy Performed TNP * Lab:Complete Blood Count Aut o Diff * Collection Date 03/26/2024 01/24/2024 12/06/2023 Collection Time 02:11 PM 01:59 PM 03:00 PM Order Date 03/26/2024 01/24/2024 12/06/2023 White Blood Count 11.0 H (Ref Range: 4.8-10.8 X10*3/uL) 9.9 (Ref Range: 4.8-10.8 X10*3/uL) 9.6 (Ref Range: 4.8-10.8 X10*3/uL) Red Blood Count 4.17 L (Ref Range: 4.20-5.50 X10*6/uL) 4.30 (Ref Range: 4.20-5.50 X10*6/uL) 4.09 L (Ref Range: 4.20-5.50 X10*6/uL) Hemoglobin 13.5 (Ref Range: 12.0-16.0 g/dl) 14.3 (Ref Range: 12.0-16.0 g/dl) 13.5 (Ref Range: 12.0-16.0 g/dl) Hematocrit 41.7 (Ref Range: 37.0-47.0 %) 43.6 (Ref Range: 37.0-47.0 %) 40.6 (Ref Range: 37.0-47.0 %) Mean Corpuscular Volume 100.0 H (Ref Range: 80.0-98.0 fL) 101.4 H (Ref Range: 80.0-98.0 fL) 99.3 H (Ref Range: 80.0-98.0 fL) Mean Corpuscular Hemoglobin 32.4 (Ref Range: 27.0-33.0 pg) 33.3 H (Ref Range: 27.0-33.0 pg) 33.0 (Ref Range: 27.0-33.0 pg) Mean Corpuscular HGB Conc 32.4 (Ref Range: 31.0-35.0 g/dl) 32.8 (Ref Range: 31.0-35.0 g/dl) 33.3 (Ref Range: 31.0-35.0 g/dl) Red Cell Distribution Width 14.3 (Ref Range: 11.0-16.0 %) 14.8 (Ref Range: 11.0-16.0 %) 14.6 (Ref Range: 11.0-16.0 %) Platelet Count 340 (Ref Range: 160-400 X10*3/uL) 312 (Ref Range: 160-400 X10*3/uL) 327 (Ref Range: 160-400 X10*3/uL) Mean Platelet Volume 9.7 (Ref Range: 9.4-12.3 fL) 9.9 (Ref Range: 9.4-12.3 fL) 9.6 (Ref Range: 9.4-12.3 fL) Neutrophils Percent Auto 71.1 (Ref Range: 45-73 %) 74.0 H (Ref Range: 45-73 %) 70.9 (Ref Range: 45-73 %) Imm Gran Pct Auto 0.3 (Ref Range: 0.0-0.4 %) 0.3 (Ref Range: 0.0-0.4 %) 0.2 (Ref Range: 0.0-0.4 %) Lymphocytes Percent Auto 17.3 L (Ref Range: 20-40 %) 15.6 L (Ref Range: 20-40 %) 18.5 L (Ref Range: 20-40 %) Monocytes Percent Auto 9.3 (Ref Range: 2-11 %) 7.7 (Ref Range: 2-11 %) 7.8 (Ref Range: 2-11 %) Eosinophils Percent Auto 1.5 (Ref Range: 0-4 %) 2.0 (Ref Range: 0-4 %) 2.1 (Ref Range: 0-4 %) Basophils Percent Auto 0.5 (Ref Range: 0-2 %) 0.4 (Ref Range: 0-2 %) 0.5 (Ref Range: 0-2 %) NRBC Pct Auto 0.0 (Ref Range: 0.0-0.2 /100WBC) 0.0 (Ref Range: 0.0-0.2 /100WBC) 0.0 (Ref Range: 0.0-0.2 /100WBC) Neutrophils Absolute Auto 7.9 (Ref Range: 2.0-8.3 x10*3/uL) 7.4 (Ref Range: 2.0-8.3 x10*3/uL) 6.8 (Ref Range: 2.0-8.3 x10*3/uL) Imm Gran Abs Auto 0.03 (Ref Range: 0.00-0.03 X10*3/uL) 0.03 (Ref Range: 0.00-0.03 X10*3/uL) 0.02 (Ref Range: 0.00-0.03 X10*3/uL) Lymphocytes Absolute Auto 1.9 (Ref Range: 1.2-4.9 X10*3/uL) 1.6 (Ref Range: 1.2-4.9 X10*3/uL) 1.8 (Ref Range: 1.2-4.9 X10*3/uL) Monocytes Absolute Auto 1.0 (Ref Range: 0.1-1.2 X10*3/uL) 0.8 (Ref Range: 0.1-1.2 X10*3/uL) 0.8 (Ref Range: 0.1-1.2 X10*3/uL) Eosinophils Absolute Auto 0.2 (Ref Range: 0.0-0.4 X10*3/uL) 0.2 (Ref Range: 0.0-0.4 X10*3/uL) 0.2 (Ref Range: 0.0-0.4 X10*3/uL) Basophils Absolute Auto 0.1 (Ref Range: 0.0-0.2 X10*3/uL) 0.0 (Ref Range: 0.0-0.2 X10*3/uL) 0.1 (Ref Range: 0.0-0.2 X10*3/uL) NRBC Abs Auto 0.000 (Ref Range: 0.0-0.012 X10*3/uL) 0.000 (Ref Range: 0.0-0.012 X10*3/uL) 0.000 (Ref Range: 0.0-0.012 X10*3/uL) * Examination: G eneral Examination: GENERAL APPEARANCE: p leasant, well nourished, well developed, in no acute distress, calm and relaxed, morbidly obese, woman. HEAD: a traumatic, normocephalic. EYES: e [...] or vascular bruits. LUNGS: c lear to auscultation, no wheezes, rales, rhonchi, good air movement. BREASTS: n o dimpling, no discharge, no drainage, no masses palpable bilaterally, nontender, All scars healed. ABDOMEN: b owel sounds normal, no ascites, no organomegaly, no mass, morbid obesity. RECTAL EXAM: n ot examined. MUSCULOSKELETAL: e xtremities unremarkable, no clubbing, cyanosis or edema. PERIPHERAL PULSES: n ormal. NEUROLOGIC: a lert and oriented, cranial nerves 2-12 grossly intact, deep tendon reflexes 2+ symmetrical, motor strength normal upper and lower extremities, sensory exam intact. PSYCH: a lert, oriented. - : B reasts:Normal, Ears: Normal, Blood Work: Normal. Assessment: * Assessment: 1. P olycythemia vera - D45 (Primary) N otes :Her polycythemia is stable and her hematocrit is in the normal range. She will have the CBC done every 2 months instead of one now that she is stable. She will avoid taking iron-containing medications. 2 . I kassy deficiency - E61.1 N otes :She is no longer anemic and a mean cell volume is macrocytic. She'll be observed carefully. The iron will be continued. Comprehensive blood work with a ferritin has been ordered.She has been phlebotomize continuously. Close observation will occur and. Treatment used if necessary. 3 . C eliac disease - K90.0 N otes :She has had no change in her gastrointestinal symptoms. Her weight is stable and she seems happy and well. No treatment is necessary today. 4 . T obacco dependence - F17.200 N otes :She continues to smoke and I have made her aware of the health consequences doing so. I have referred her to the smoking cessation program at [facility]. 5 . R aynaud's syndrome without gangrene - I73.00 N otes :No further episodes of Raynaud's syndrome have occurred since her last visit. 6 . 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 There was no sign of metastatic disease or recurrence today. Her anastrozole was continued. 7 . M orbid obesity - E66.01 N otes :She has gained 8 pounds and her body mass index is now 40. We have reviewed diet and nutrition. We have made a plan to lose weight at a rate of one half of a pound per week through a diet restricted in fat calories and sodium combined with regular physical activity. Plan: * Treatment: 2. C eliac disease L AB: PROFILE, FASTING (COMPREHENSIVE METABOLIC) L AB: CBC w DIFF L AB: Ferritin L AB: Lipid Panel 3. R aynaud's syndrome without gangrene L AB: PROFILE, FASTING (COMPREHENSIVE METABOLIC) L AB: CBC w DIFF L AB: Ferritin L AB: Lipid Panel * Procedure Codes: * Preventive Medicine: Counseling: [...] tobacco use and urged to quit. 0 04/18/2024 * Follow Up: 6 Months, In six months (Reason: ov review labs, Routine follow-up) * Images: * Sign off status: Completed true * Provider: Oliva Guerrero MD Date: 0 04/18/2024 Generated for Jannie stover/Baljit/Annalise on: 05/10/2024 08:54 AM EST History and Physical Notes * HPI (History of Present Illness) Category Sub-Category Detail Notes COVID-19 Screening Questions Have you had any new onset fever, chills, cough, congestion, sore throat, shortness of breath, muscle aches?: Yes Muscle Aches Examination Category Sub-Category Detail Notes General Examination GENERAL APPEARANCE: pleasant , well nourished, well developed, in no acute distress, calm and relaxed, morbidly obese, woman HEAD: atraumatic, normocep halic EYES: eomi, perrla, anicte kanwal, conjugate EARS: normal NOSE: septum intact NECK/THYROID: no jugular venous di stention, no carotid bruit, thyroid normal HEART: no clicks, gallops, murmurs, or rubs, regular rhythm, S1, S2 normal, no s3, or vascular bruits LUNGS: clear to auscultatio n, no wheezes, rales, rhonchi, good air movement ABDOMEN: bowel sounds normal, no ascites, no organomegaly, no mass, morbid obesity NEUROLOGIC: alert and oriented, cranial nerves 2-12 grossly intact, deep tendon reflexes 2+ symmetrical, motor strength normal upper and lower extremities, sensory exam intact SKIN: no suspicious lesion s, anicteric PERIPHERAL PULSES: normal BREASTS: no dimpling, no disc harge, no drainage, no masses palpable bilaterally, nontender, All scars healed MUSCULOSKELETAL: extremities unremark able, no clubbing, cyanosis or edema LYMPH NODES: no enlarged lymph no wilfrido,spleen normal RECTAL EXAM: not examined PSYCH: alert, oriented ORAL CAVITY: normal, unremarkable
--- OUTSIDE RECORDS SUMMARY | 2024-10-17 04:15 | XMS_ITS ---
Author Organization Rajinder Guerrero III, MD Address [address] [place] [address] Care Team Providers Care Charter Representative Name Role Phone Roderick TAPIA, [facility] Primary Care Provider Dr. Rajinder Camargo III Unavailable [phone] Allergies Allergen (clinical drug ingredient) Drug/Non Drug [...] Date Provider Diagnosis Rajinder Guerrero III, MD [address] [place] [address] [place] [address] 10/17/2024 Rajinder Rodriguesne Iron deficiency E61. 1 [...] her to the smoking cessation program at [facility]. 10/17/2024 Malignant neoplasm of upper-outer quadrant of [...] Provider Name:Rajinder Rodriguesne , 06/23/2025 09:45:00 AM, [address] [place] [address] [address], [place], [address], Progress Notes * Larisa DEEDOB:1955 (69 yo F)Acc No.[id number]:10/17/2024 Progress Notes Patient: Larisa BATES Provider: Oliva Guerrero MD :1955 A ge:69 Y S ex:Female Date:10/17/2024 Address:[address] [place], [place] [phone] Pcp:Deandra Vaughn MD Subjective: * Chief Complaints: [...] urrent smoker S he was born in [place] and is . She has 2 sons and works at [employer] in [place]. Smoking: Occasional, Exercise: Uses an exercise bike. [...] her to the smoking cessation program at [facility]. 4 . M alignant neoplasm of upper-outer [...] 10/17/2024 Generated for Jannie stover/Baljit/Katerineitting on: 1 05/10/2024 08:55 AM EST History and Physical Notes * [...]
--- OUTSIDE RECORDS SUMMARY | 2024-12-10 11:32 | XMS_ITS ---
Author Organization Rajinder Guerrero III, MD Address [address] [place] [address] Care Team Providers Care Cell Support Operator Name Role Phone Roderick TAPIA, [facility] Primary Care Provider Dr. Rajinder Camargo III Unavailable REASON FOR VISIT FYI only Social History Sex Assigned At : Social History Observation Description Sex Assigned At Female Encounters Encounter Location Date Provider Diagnosis Rajinder Guerrero III, MD [address] [place] [address] [address] [facility] [address] 12/10/2024 Rajinder Guerrero Plan Of Treatment Next Appt Details Provider Name:Rajinder Guerrero , 06/23/2025 09:45:00 AM, [address] [place] [address] [place], [address], Progress Notes * Larisa HERRERADOB:1955 (69 yo F)Acc No.[id number]:12/10/2024 Patient: Larisa BATES :1955 A ge:69 Y S ex:Female Address:[address] [place] [address] * true * Date: Generated for Printi ng/Falittleg/eTransmitting on: 05/10/2024 08:54 AM EST
--- OUTSIDE RECORDS SUMMARY | 2025-02-21 04:00 | XMS_ITS ---
Author Organization Rajinder Guerrero III, MD Address [address] [place] [address] Care Team Providers Care Mold Yard Worker Name Role Phone Roderick TAPIA, [facility] Primary Care Provider Dr. Raijnder Camargo III Unavailable Allergies Allergen (clinical drug [...] W/U Status Risk Notes Problem Macrocytic anemia (31655546) Macrocytic anemia (D53.9) Active confirmed Her mean [...] Date Provider Diagnosis Rajinder Guerrero III, MD [address] [place] [address] [place] [address] 02/21/2025 Rajinder Guerrero Iron deficiency E61. 1 [...] her to the smoking cessation program at [facility]. 02/21/2025 Raynaud's syndrome without gangrene (ICD-10 [...] Provider Name:Rajinder Guerrero , 06/23/2025 09:45:00 AM, [address] [place] [address], [address], [address], Progress Notes * Larisa DEEDOB:1955 (69 yo F)Acc No.[id number]:02/21/2025 Progress Notes Patient: Larisa BATES Provider: Oliva Guerrero MD :1955 A ge:69 Y S ex:Female Date:02/21/2025 Address:[address] [place], [place] [phone] Pcp:Deandra Vaughn MD Subjective: * Chief Complaints: [...] involved in the weight loss program at [facility] and has been having a cardiac [...] urrent smoker S he was born in [place] and is . She has 2 sons and works at [email or web address] in [place]. Smoking: Occasional, Exercise: Uses an exercise bike. [...] her to the smoking cessation program at [facility]. 6 . R aynaud's syndrome without [...] Date: 04/23/2024 Generated for Cintiai jolanta/Baljit/Sukiransmitting on: 05/10/2024 08:55 AM EST History and Physical [...]
--- OUTSIDE RECORDS SUMMARY | 2025-03-10 08:55 | XMS_ITS | Patient Health Record ---
Author Organization [facility] Address [address] [place] [address] Care Team Providers Care Unit Technician Name Role Phone Deandra Vaughn Primary Care [...] Status Risk Notes Problem Colon cancer screening (486737843) Colon cancer screening (Z12.11) Active confirmed Problem Flatulence, eructation and gas pain (936092089) Bloating (R14.0) Active confirmed Problem Gastroesophageal reflux disease (156896425) GERD (gastroesophageal reflux disease) (K21.9) Active confirmed Problem Gastroesophageal reflux disease (405438002) Gastroesophageal reflux disease, unspecified whether esophagitis present (K21.9) Active confirmed Plan Of Treatment Future Test Test Name Order Date UPPER GI ENDOSCOPY 01/04/2023 COLONOSCOPY 01/04/2023 Insurance Providers Payer Name Payer Address Payer Phone Subscriber Number Group Number Insured Name Patient Relationship to Insured Coverage Start Date Coverage End Date [employer] (No Referra l) [address] [address] [place] [address] [id number] PIYUSH DEE Self - patient is the insured Medical (General) History Medical History History ICD Code Hypertension Hyperlipidemia Left breast cancer, XRT and hormonal the rapy Polycythemia Anxiety Recent seizures, MRI of the brain pendin g Colonoscopy 07/25/08, hyperplastic polyps x2, ten-year followup Surgical History Surgery Date(Month/Year) Left breast cancer, lumpectomy/axillary node dissection 08/02 Cholecystectomy 10/07
--- OUTSIDE RECORDS SUMMARY | 2025-03-10 08:55 | XMS_ITS | Patient Health Record ---
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 Rajinder Camargo III Unavailable Allergies Allergen (clinical drug ingredient) Drug/Non Drug Allergy documented on EMR Reaction Allergy Type Onset Date Status Egg Protein (Egg White) Unknown Drug Allergy Active tirzepatide Zepbound rash Drug Allergy Activ e Results Component Value Reference Range Notes Complete Blood Count Auto Di ff Reviewed date:04/08/2024 06:11:33 AM Interpretation: Performing Lab:[facility], [address] [place] [phone] Notes/Report: White Blood Count 11.0 4.8-10.8 X10*3/uL [...] Phlebotomy Reviewed date:04/08/2024 06:11:33 AM Interpretation: Performing Lab:[facility], [address] [place] [phone] Notes/Report: THER/HGB TNP 12.0-16.0 g/dL Lab Results on file. Performed at [facility] on 03/26/24: Hgb: 13.5 g/dl Hct: 41.7 % THER/HCT TNP 37.0-47.0 % Therapeutic Phlebotomy Phlebotomy Performed 500 mls drawn on 03/26/24. Please note that a copy of this report has been sent to the Primary Care Physician, the ordering physician and any physician designated by patient request. Complete Blood Count Auto Di ff Reviewed date:06/09/2024 09:13:32 AM Interpretation: Performing Lab:[facility], [address] [place] [phone] Notes/Report: White Blood Count 8.9 4.8-10.8 X10*3/uL [...] Phlebotomy Reviewed date:06/09/2024 09:13:32 AM Interpretation: Performing Lab:[address] [address] Notes/Report: THER/HGB TNP 12.0-16.0 g/dL Lab Results on file. Performed at [facility] on 05/28/24: Hgb: 13.1 g/dl Hct: [...] ff Reviewed date:08/03/2024 07:24:43 AM Interpretation: Performing Lab:[address] [phone] Notes/Report: White Blood Count 8.5 4.8-10.8 X10*3/uL [...] Phlebotomy Reviewed date:08/03/2024 07:24:43 AM Interpretation: Performing Lab:[facility], [address] [place] [phone] Notes/Report: THER/HGB TNP 12.0-16.0 g/dL Lab Results on file. Performed at [facility] on 07/30/24: Hgb: 12.5 g/dl Hct: [...] ff Reviewed date:10/02/2024 01:20:13 PM Interpretation: Performing Lab:[facility], [address] [place] [phone] Notes/Report: White Blood Count 8.6 4.8-10.8 X10*3/uL [...] Phlebotomy Reviewed date:10/02/2024 01:20:13 PM Interpretation: Performing Lab:[facility], [address] [place] [phone] Notes/Report: THER/HGB TNP 12.0-16.0 g/dL Lab Results on file. Performed at [facility] on 10/01/24: Hgb: 12.1 g/dl Hct: [...] ff Reviewed date:12/02/2024 01:40:01 PM Interpretation: Performing Lab:[facility], [address] [place] [phone] Notes/Report: White Blood Count 8.0 4.8-10.8 X10*3/uL [...] Phlebotomy Reviewed date:12/02/2024 01:40:01 PM Interpretation: Performing Lab:[facility], [address] [place] [phone] Notes/Report: THER/HGB TNP 12.0-16.0 g/dL Lab Results on file. Performed at [facility] on 12/02/24: Hgb: 12.1 g/dl Hct: [...] ff Reviewed date:02/09/2025 07:31:57 AM Interpretation: Performing Lab:[facility], [address] [place] [phone] Notes/Report: White Blood Count 7.1 4.8-10.8 X10*3/uL [...] Phlebotomy Reviewed date:02/09/2025 07:31:57 AM Interpretation: Performing Lab:[facility], [address] [place] [phone] Notes/Report: THER/HGB TNP 12.0-16.0 g/dL Lab Results on file. Performed at [facility] on 02/04/25: Hgb: 11.5 g/dl Hct: [...] Problem Status W/U Status Risk Notes Problem 349760666 Obesity (E66.9) Active confirmed She has lost 22 pounds since her last visit. She is using Zepbound. Her regimen was continued unchanged. Problem Postmenopausal state (25194130) Post-menopausal (Z78.0) Active confirmed She has not had a period in several years. Problem Polycythemia vera (200532832) Polycythemia vera (D45) Active confirmed Her polycythemia is stable and her hematocrit is in the normal range. She will have the CBC done every 2 months instead of one now that she is stable. She will avoid taking iron-containin g medications. Problem 99278771 Iron deficiency (E61.1) Active confirmed She is no longer anemic and a mean cell volume is macrocytic. She'll be observed carefully. The iron will be continued. Comprehensive blood work with a ferritin has been ordered.She has been phlebotomize continuously. Close observation will occur and. Treatment used if necessary. Problem 480163647 Raynaud's syndrome without gangrene (I73.00) Active confirmed No further episodes of Raynaud's syndrome have occurred since her last visit. Problem 30610234 Tobacco dependence (F17.200) Active confirmed She continues to smoke and I have made her aware of the health consequences doing so. I have referred her to the smoking cessation program at [facility]. Problem 587585892 Erythrocytosis (D75.1) Active confirmed She will continue the phlebotomy if needed. At this time her hematocrit and hemoglobin are normal. Currently, the increased red cell mass is well controlled. Problem Macrocytic anemia (60429392) Macrocytic anemia (D53.9) Active confirmed Her mean cell volume remains slightly elevated. Her hematocrit varies between 34 and 36. Phlebotomy has not been necessary recently. 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 There was no sign of metastatic disease or recurrence today. Her anastrozole was continued. Problem 050643780 Lobular carcinoma of left breast, stage 1 [...] Date Provider Diagnosis Rajinder Guerrero III, MD [address] [place] [address] [place] [address] 04/18/2024 Rajinder Guerrero Iron deficiency E61. 1 ; Polycythemia vera D45 ; Celiac disease K90.0 ; Tobacco dependence F17.200 ; Raynaud's syndrome without gangrene I73.00 ; Malignant neoplasm of upper-outer quadrant of left female breast, 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 and Morbid obesity E66.01 Rajinder Guerrero III, MD [address] [place] [address] [place] [address] 10/17/2024 Rajinder Guerrero Iron deficiency E61. 1 ; Polycythemia vera D45 ; Tobacco dependence F17.200 ; Malignant neoplasm of upper-outer quadrant of left female breast, 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 and Morbid obesity E66.01 Rajinder Guerrero III, MD [address] [place] [address] [place] [address] 02/21/2025 Rajinder Guerrero Iron deficiency E61. 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. 02/21/2025 Obesity (ICD-10 - E66.9) She has lost 22 pounds since her last visit. She is using Zepbound. Her regimen was continued unchanged. 04/18/2024 Tobacco dependence (ICD-10 - F17.200) She continues to smoke and I have made her aware of the health consequences doing so. I have referred her to the smoking cessation program at [facility]. 10/17/2024 Malignant neoplasm of upper-outer quadrant [...] her to the smoking cessation program at [facility]. 04/18/2024 Malignant neoplasm of upper-outer quadrant of [...] Name:Rajinder Guerrero , 06/23/2025 09:45:00 AM, [address] [place] [address] DR, [facility], [place], [address], Insurance Providers Payer Name Payer Address Payer Phone Subscriber Number Group Number Insured Name Patient Relationship to Insured Coverage Start Date Coverage End Date [employer] [address] [place] [phone] [id number] Luiz Larisa Self - patient is the insured MEDICARE NGS [address] [place] [address] [id number] SusanLarisa villalobos Self - patient is the insured Medical (General) History Medical History History ICD Code history of iron deficiency celiac disease bunion left foot history of herpes zoster erythrocytosis episode of Raynaud's syndrome October invasive lobular carcinoma, l eft breast,ER+NJ+Her-,8mm,N0 Left breast cancer in 2018, Gallbladder surgery in the past June 2017 invasive lobular carcinoma, l eft breast,ER+[place]+Her-,8mm Surgical History Surgery Date(Month/Year) Gallbladder surgery Cholecystectomy 09/2022 drainage tonsillar abscess 12/2018 left breast lumpectomy,SN, invasive lobu lar carcinoma 06/2017 Hospitalization History Reason Date(Month/Year) No history tonsilitis 09/2021
--- OUTSIDE RECORDS SUMMARY | 2025-03-10 08:56 | XMS_ITS | Data Portability ---
Author Organization [place] - [facility], Allergy Address [address] [place] [phone] Care Team Providers Care Information Services Vice President Name Role Phone TIAGO SEAMAN Primary Care Provider [phone] Assessment No assessment recorded. Plan of Treatment [...] By Organization Details Last Modified Time 06/10/2024 05502 Patient with hig h body mass index [...] Organization Details Recorded Time Peritonsi llar abscess 91561789 Active 2018 Peritonsi llar abscess; Note: Date Diagnosed : 12/19/2018 4:14 PM (J36) Not Available [facility] 4 02:56:17 Recurrent acute streptoco ccal tonsillit is 21314808545 497443 Active 2021 Acute recurrent streptoco ccal tonsillit is; Note: Date Diagnosed : 07/20/2021 10:23 AM (J03.01) Not Available [facility] 4 02:56:17 Chronic tonsillit is 02954322 Active 2021 Chronic tonsillit is; Note: Date Diagnosed : 11/10/2021 3:33 PM (J35.01) Not Available [facility] 4 02:56:16 Snoring 79857767 Active 2024 LUKE CORTEZ MD [address] [facility],[place] [address], [place], [address] , [facility] - [facility] 5 14:08:39 Hypertrop hy of tonsils 51653808 [facility] 2024 LUKE CORTEZ MD [address] [facility],[place] [address], [place], [address] , [facility] - [facility] 14:08:44 Problem Notes None recorded. Procedures Surgical History Date Name Laterality Status Provider Name and Address Organization Details Recorded Time lumpectomy of breast completed LUKE POWER MD [address] [facility],[place] [address], [place], [address], [facility] - [facility] 06/10/2024 14:05:51 incision of gallbladder completed Lynn Belcher [facility] 06/10/2024 14:15:15 Imaging Results None recorded. Procedure Notes None recorded. Medical Equipment None Reported. Allergies Allergen ID Allergen Name Allergen Category Reaction Reaction Severity Criticality Documentation Date Start Date Code Code System Note Provider Name and Address Organization Details Recorded Time 131429 Eggs (edible) (substanc e) food,medi cation other Not available Not available 08/29/2023 43730 3004 SNOMED React ion: unkno wn, unspe cifie d;; Not Available [facility] 4 01:12:27 Medications Name Sig Start Date Stop Date Status Note LastModified by Organization Details LastModified Time losartan 50 mg tablet 07/20 completed Medicati on ID: [id number] D uration Value: 90 Brand Name: losartan [...] 1 mg tablet active Medicati on ID: [id number] B rand Name: marisela ole Send Method: E-Prescr ibed Sub s Allowed: subs OK Speci al Instruct ion: TAKE 1 TABLET BY MOUTH EVERY DAY Medi cationGe nericNam e: anastroz ole Not Available Not Available Not Available clindamyc in HCl 300 mg capsule 1 capsule by mouth 12/29 completed Medicati on ID: [id number] D uration Value: 10 Pres[address] By [...] by mouth 2018 active Medicati on ID: [id number] D uration Value: 5 Prescri bed By [...] mg tablet 07/20 completed Medicati on ID: [id number] B rand Name: losartan -hydroch lorothia zide Sen d Method: E-Prescr ibed Sub s Allowed: subs OK Speci al Instruct ion: TAKE 1 TABLET BY MOUTH EVERY DAY Medi cationGe nericNam e: losartan -hydroch lorothia zide Not Available Not Available Not Available hydrochlo rothiazid e 12.5 mg tablet active Medicati on ID: [id number] B rand Name: hydrochl orothiaz jose Send [...] Updated DateTime 06/10/2024 165.1 cm 36.9 kg/m2 941219.51 g Antionette Galindo [place] - [facility] 06/10/2024 13:53:41 Social History None recorded. Functional Status None recorded. Mental Status None recorded. Family History Nothing Reported. Medical History Condition Response Anxiety Y Tonsil Infections Y Cancer Y High Cholesterol Y GERD/Reflux Y Gynecological HistoryNo gynecological history recorded. Obstetrics History GPAL:G 0 P 0 0 0 0 Past Encounters Encounter ID Performer Location Encounter Start Date Encounter Closed Date Diagnosis/Indication Diagnosis SNOMED-CT Code Diagnosis ICD10 Code Diagnosis IMO Codes Diagnosis Note [id number] LUKE CORTEZ MD [facility] [address] [place] [address] 06/10/2024 13:44:02 06/10/2024 15:22:07 Snoring 04803101 R06.83 Hypertroph y of tonsils 87570213 J35.1 Body mass index 30+ - obesity 414100571 Z68.36 Health Concerns Section Related Observation LastModified by Organization Detai ls LastModified Time None Recorded Concern Status LastModified by Organization Details LastModified Time None Recorded Advance Directives Directive None Recorded Payers Insurance Date Sequence Insurance Name Policy Number Policy Maradiaga Covered Member ID Maradiaga Member ID Guarantor Name 06/10/2024 1 MEDICARE B-[place]: [facility] [employer] Larisa Dee [id number] Larisa Dee 06/10/2024 1 [employer] (MEDICARE REPLACEMENT/A DVANTAGE - PPO) [id number] Larisa Dee [id number] Larisa Dee Notes Date Note Type Note Provider Name and Address Organization Details Recorded Time 06/10/2024 text/html ROS as noted in the HPI Patient previously seen for peritonsillar abscesses. Fortunately she has had no issues since 2021. She has noted snoring and possible apnea. Scheduled for a polysomnogram in July. She has a history of polycythemia, elevated cholesterol, breast cancer and reflux. LUKE OPWER MD [address] [place] [address], [place], [address], [facility] - [facility] 06/10/2024 14:10:24 OBGyn Episode No OBEpisode recorded.
--- NOTE | 2025-03-10 13:02 | MHC.OFFVISWM ---
VS Expanded 03/10/25 13:06 Height 5 ft 5 in Weight 219 lb 5 oz BMI 36.5 Body Fat % 46 Body Fat Mass 100.9 Fat Free Mass 118.5 Visceral Fat Rating 16 Body Water % 37 Body Water Mass 81.2 Basal Metabolic Rate/Score 1,185 Intake Visit Reasons: TV Pre Op LSG 03/20/25 Allergies environmental allergies Allergy (Unknown, Verified 10/08/24 11:31) Unknown egg (Egg) Adverse Reaction (Intermediate, Verified 10/08/24 11:31) Gastrointestinal Upset Medication List - Last Reconciled 03/10/25 by David Santana MD cholecalciferol (vitamin D3) 50 mcg PO DAILY cyanocobalamin (vitamin B-12) (Vitamin B-12) 1,000 mcg PO DAILY ibuprofen 600 mg PO TID PRN lorazepam 1 mg PO DAILY PRN losartan-hydrochlorothiazide 100-25 mg 1 tab PO DAILY ondansetron 4 mg PO Q12H pantoprazole 40 mg PO DAILY pantoprazole 40 mg PO DAILY polyethylene glycol 3350 17 grams PO DAILY pravastatin 1 tab PO DAILY sucralfate 10 mL PO BID sucralfate 10 mL PO BID HPI HPI TV Pre Op LSG 03/20/25: Details: Start time: 12.47pm, End time: 1.17pm ?I spent 25 minutes speaking with the patient on the phone plus an additional 5 minutes reviewing and updating records for a total of 30 minutes HPI Comments Details: Overall weight loss: 26.7lbs, or 10.84% This is the preop appointment for the upcoming sleeve gastrectomy [facility] Medical History (Updated 03/10/25 @ 13:10 by David Santana MD) BMI 34.0-34.9,adult Obesity Cardiomegaly Abnormal EKG GERD (gastroesophageal reflux disease) Anxiety Sleep apnea treated with continuous positive airway pressure (CPAP) Morbid obesity Polycythemia Orthostatic dizziness Hypercholesterolemia Hypertension History of left breast cancer Surgical History (Updated 09/11/24 @ 10:02 by Lani Maloney CMA) Hx of colonoscopy Hx of bladder endoscopy Hx laparoscopic cholecystectomy (09/20/22) History of lymph node excision History of lumpectomy of left breast Family History (Updated 09/11/24 @ 10:05 by Lani Maloney CMA) Mother Hypertension High cholesterol Angina at rest Father Hypertension High cholesterol Alcoholic Son No problems noted. Son Hx of sleep apnea Social History (Updated 09/11/24 @ 10:06 by Lani Maloney CMA) Household Members: None Housing: House Are you a primary director medicare sales to a significant other at home: No Do you presently have visiting nurse or other home services: No Alcohol intake: current Alcohol intake frequency: a few times a month Patient Tobacco Use Status: Current someday Tobacco user Tobacco use type: Cigarette Cigarettes Per Day: 1 Years Smoked: 40 Second Hand Smoke Exposure: No service: No Current occupational status: employed Telehealth Telehealth Telehealth Platform: Telephone Location of provider rendering services: practice address Location of patient: address on file Patient Identification confirmed using: Name, : Yes Telehealth method: voice only Patient verbally consented to treatment: Yes Patient verbally consented to billing insurance company: Yes Patient informed of any privacy concerns related to visit: Yes Minutes spent on Phone/Video with Pt.: 30 Assessment & Plan Assessment & Plan (1) Obesity: Code(s): E66.9 - Obesity, unspecified Category: Medical Qualifiers: Obesity type: due to excess calories Obesity classification: adult class 1 (BMI 30 - 34.9) Serious obesity comorbidity presence: with serious comorbidity Body mass index: BMI 34.0-34.9 Qualified Code(s): E66.811 - Obesity, class 1; E66.09 - Other obesity due to excess calories; Z68.34 - Body mass index [BMI] 34.0-34.9, adult Plan: 1. Plan for lap sleeve gastrectomy including upper GI endoscopy. All tests has been completed and reviewed and the patient is cleared for the surgery. ?If diaphragmatic or ventral hernias are present at time of surgery, these will be repaired laparoscopically as well. Risks and complications were discussed in detail including possible conversion to an open procedure, anastomotic leak, bleeding requiring transfusion, small bowel obstruction, , DVT and pulmonary embolism, cardiac, or pulmonary complications, as half-way complications such as anastomotic ulcer, insufficient weight loss and vitamin deficiencies. I emphasized the importance of close follow-up, adherence to instructions and good communication. So far she has proven to be an excellent communicator and very compliant with all our directions accomplishing a great weight loss. I believe that she is an excellent candidate and she is ready. 2. Preop prescriptions were provided and explained the purpose of each one. Need to be purchased preop. Start Pantoprazole now as you get it from the pharmacy, 1 pill per day. Sucralfate and Zofran are for after surgery as needed. 3. Bowel prep: please do 7 packets ?of Miralax mixing each one with a an 8oz glass of water, crystal light, gatorade zero, or propel ?on 03/18/25 and the same amount on 03/19/25. The Miralax you begin with one packet at a time in 8oz water or crystal light, gatorade zero, or propel ?as early in the day as you can and you do them back to back until you finish them. Continue the protein shakes during ?the bowel prep. 4. Needs to purchase 1oz medicine cups . 5. Needs to purchase Children's liquid Tylenol for postop pain control. 6. She needs to stop the Iburpofen. Avoid aspirin, motrin, Advil, Aleve, Meloxicam, Excedrin, Ibuprofen, Naproxyn. Tylenol is OK. 7. She needs to purchase the Celebrate multivitamins from the hospital's gift shop, chewable or pills whatever you prefer. 8. Will do basic preop blood work-up tomorrow 03/11/25 fasting for 12 hours and is scheduled to see the Anesthesiologist prior to the day of surgery. 9. Importance of adherence to postop folllow-up and recommendations was underscored and she understands that. 10. Continue to avoid food and bars and continue with 2 Celebrate Rebuild protein shakes (ONE scoop EACH in 8oz almond milk) at 5am-7am and 8am-10am and THREE Celebrate Rebuild protein shake with TWO scoops in 8oz of almond milk at 11am-1pm, 2pm-4pm and 5pm-7pm 11. No soups, broths or V8 12. The patient's?medical?history has been reviewed and they are considered low risk for post op DVT and therefore DVT prophylaxis is not considered necessary. Travel after surgery was reviewed. The patient has not disclosed any travel plans during the first 30 days after surgery and they have been advised that within the first 30 days after surgery any bus, plane, train or car travel over 2 hours in duration is contraindicated due to the possibility of developing blood clots from immobility. Any travel, needs to include periods of ambulation of 10 minutes in duration every 2 hours.? Patient was instructed to discuss any plans for travel during this period with their bariatric surgeon.? 13. Use your CPAP daily and bring it to the hospital with your mask 14. As of tomorrow, please check your blood pressure daily in the morning. If your blood pressure is: Below 120/70: do not take the Losartan/HCTZ 121/71 to 135/85: take HALF Losartan/HCTZ Over 136/86: take the whole Losartan/HCTZ 15. Please take at the day of surgery the following medications: ONLY the Losartan/HCTZ, if the blood pressure that day is high enough to justify it based on the parameters at the previous bullet point. 16. Stop any control pills and don't use them for one month after surgery 17. Absolutely no smoking or vaping, or marijuana until the surgery and for at least the first 4 weeks. Only nicotine patches are allowed. 18. Send me weight measurements on Monday03/12/25 and then on 03/20/25, the day of surgery before you go to the hospital. 19. Avoid any steroids by mouth for any reason. Let me know if someone prescribes them to you 20. These instructions supersede anything else you read in the handbook, anything you watched in videos or classes or you were told by any other provider. If there is any conflict, you follow the above instructions and nothing else. Orders: Orders Insulin Today E66.9 - Obesity, unspecified, Z68.34 - Body mass index [BMI] 34.0-34.9, adult Complete Blood Count Auto Diff Today E66.9 - Obesity, unspecified, Z68.34 - Body mass index [BMI] 34.0-34.9, adult Lipid Panel Today E66.9 - Obesity, unspecified, Z68.34 - Body mass index [BMI] 34.0-34.9, adult Hemoglobin A1c Today E66.9 - Obesity, unspecified, Z68.34 - Body mass index [BMI] 34.0-34.9, adult Comprehensive Met. Panel Today E66.9 - Obesity, unspecified, Z68.34 - Body mass index [BMI] 34.0-34.9, adult TSH reflex Free T4 Today E66.9 - Obesity, unspecified, Z68.34 - Body mass index [BMI] 34.0-34.9, adult C Reactive Protein Today E66.9 - Obesity, unspecified, Z68.34 - Body mass index [BMI] 34.0-34.9, adult Partial Thromboplastin Time Today E66.9 - Obesity, unspecified, Z68.34 - Body mass index [BMI] 34.0-34.9, adult Type and Screen Today E66.9 - Obesity, unspecified, Z68.34 - Body mass index [BMI] 34.0-34.9, adult Prothrombin Time INR Today E66.9 - Obesity, unspecified, Z68.34 - Body mass index [BMI] 34.0-34.9, adult Medications: New pantoprazole 40 mg PO DAILY 90 tabs 0RF K21.9 - Gastro-esophageal reflux disease without esophagitis sucralfate 10 mL PO BID 600 mL 2RF K21.9 - Gastro-esophageal reflux disease without esophagitis pantoprazole 40 mg PO DAILY 90 tabs 0RF K21.9 - Gastro-esophageal reflux disease without esophagitis ondansetron 4 mg PO Q12H 20 tabs 0RF nausea and vomiting R11.0 - Nausea sucralfate 10 mL PO BID 600 mL 2RF K21.9 - Gastro-esophageal reflux disease without esophagitis polyethylene glycol 3350 Mix each measuring cup with 8oz of water, Crystal light, or Gatorade zero, or Propel and do 7 measuring cups on 03/18/25 and another 7 measuring cups on 03/19/25 17 grams PO DAILY 238 grams 0RF Z01.818 - Encounter for other preprocedural examination
[2025-03-10 13:06] VITALS: BMI 36.5
== END 2025-03-10 13:18 | disposition home or self-care (01) ==
LOC: HO.HBS 08:36
PROVIDERS: PCP Internal Medicine; Visit Provider Surgery
DX: E66.811 Obesity, class 1 (principal); Z68.36 Body mass index [BMI] 36.0-36.9, adult
CPT/HCPCS: 99024

== ENCOUNTER 2025-03-11 06:39 | Day surgery (SDC) | payer MEDICARE, SELFPAY ==
--- OUTSIDE RECORDS SUMMARY | 2023-09-22 10:00 | XMS_ITS ---
Author Organization Rajinder Guerrero III, MD Address [address] [place] [address] Care Team Providers Care Hims Clerk Name Role Phone Roderick TAPIA, [facility] Primary Care Provider Dr. Rajinder Camargo III Unavailable [phone] Allergies Allergen (clinical drug ingredient) Drug/Non Drug [...] W/U Status Risk Notes Problem Polycythemia vera (063637506) Polycythemia vera (D45) Active confirmed Her polycythemia [...] Date Provider Diagnosis Rajinder Guerrero III, MD [address] [place] [address] [place] [address] 09/22/2023 Rajinder Guerrero Iron deficiency E61. 1 [...] her to the smoking cessation program at [facility]. 09/22/2023 Polycythemia vera (ICD-10 - D45) [...] Provider Name:Rajinder Guerrero , 06/23/2025 09:45:00 AM, [address] [place] [address], [place] [address], [place], [address], Progress Notes * SHARON TamaraoscarDOB:1955 (68 yo F)Acc No.[id number]:09/22/2023 Progress Notes Patient: Larisa Conklin Provider: Oliva Guerrero MD :1955 A ge:68 Y S ex:Female Date:09/22/2023 Address:[address] [place], [place] [id number] Pcp:Deandra Vaughn MD Subjective: * Chief Complaints: [...] x-cigarette smoker S he was born in [place] and is . She has 2 sons and works at [employer] in [place]. * Medications: T akingLORazepam 1 MG Tablet [...] - 09/20/2023) (Collection Date - 09/20/2023)? ValueReference Range?[id number] - ng/mL * Examination: G eneral Examination: [...] her to the smoking cessation program at [facility]. 4. P olycythemia vera - D45, [...] 0 09/22/2023 Generated for Jannie stover/Baljit/Annalise on: 1 05/06/2024 08:19 PM EST History and Physical Notes * [...]
--- OUTSIDE RECORDS SUMMARY | 2024-03-25 13:15 | XMS_ITS ---
Author Organization Rajinder Guerrero III, MD Address [address] [place] [address] [place] [address] Care Team Providers Care Cloth Piecer Name Role Phone Roderick TAPIA, Deandra Primary Care Provider Dr. Rajinder Camargo III Unavailable [phone] REASON FOR VISIT Follow-up Social History Sex Assigned At : Social History Observation Description Sex Assigned At Female Encounters Encounter Location Date Provider Diagnosis Rajinder Guerrero III, MD [address] [place] [address] [place] [address] 03/25/2024 Rajinder Guerrero Plan Of Treatment Next Appt Details Provider Name:Rajinder Guerrero , 06/23/2025 09:45:00 AM, [address] [place] [address] [place], [address], Progress Notes * Larisa DEEDOB:1955 (69 yo F)Acc No.[id number]:03/25/2024 Progress Notes Patient: Larisa BATES Provider: Oliva Guerrero MD :1955 A ge:69 Y S ex:Female Date:03/25/2024 Address:[address] [place], [place] [address] [id number] Pcp:Deandra Vaughn MD Subjective: * Chief Complaints: [...] Date: 05/26/2023 Generated for Jannie stover/Baljit/Annalise on: 05/06/2024 08:19 PM EST
--- OUTSIDE RECORDS SUMMARY | 2024-04-18 04:00 | XMS_ITS ---
Author Organization Rajinder Guerrero III, MD Address [address] [place] [address] Care Team Providers Care Auxiliary Equipment Operator Name Role Phone Roderick TAPIA, [facility] Primary Care Provider Dr. Rajinder Camargo III Unavailable [phone] Allergies Allergen (clinical drug ingredient) Drug/Non Drug [...] Provider Diagnosis Rajinder Guerrero III, MD [address] [place] [address] [place] [address] 04/18/2024 Rajinder Guerrero Iron deficiency E61. 1 [...] her to the smoking cessation program at [facility]. 04/18/2024 Raynaud's syndrome without gangrene (ICD-10 [...] Provider Name:Rajinder Guerrero , 06/23/2025 09:45:00 AM, [address] [place] [address] [address] [address], [place], [address], Progress Notes * LUIZ LarisaDOB:1955 (69 yo F)Acc No.[id number]:04/18/2024 Progress Notes Patient: Larisa BATES Provider: Oliva Guerrero MD :1955 A ge:69 Y S ex:Female Date:04/18/2024 Address:[address] [place], [place] [phone] Pcp:Deandra Vaughn MD Subjective: * Chief Complaints: [...] N egative S he was born in [place] and is . She has 2 sons and works at [employer] in [place]. Smoking: Occasional, Exercise: Uses an exercise bike. [...] her to the smoking cessation program at [facility]. 5 . R aynaud's syndrome without [...] 0 04/18/2024 Generated for Jannie stover/Baljit/Annalise on: 05/06/2024 08:19 PM EST History and Physical [...]
--- OUTSIDE RECORDS SUMMARY | 2024-10-17 04:15 | XMS_ITS ---
Author Organization Rajinder Guerrero III, MD Address [address] [place] [address] Care Team Providers Care Card Dealer Name Role Phone Roderick TAPIA, [facility] Primary Care Provider Dr. Rajinder [...] Provider Diagnosis Rajinder Guerrero III, MD [address] [place] [address] [place] [address] 10/17/2024 Rajinder Rodriguesne Iron deficiency E61. 1 [...] to the smoking cessation program at [facility]. 10/17/2024 Malignant neoplasm of upper-outer quadrant of [...] Provider Name:Rajinder Rodriguesne , 06/23/2025 09:45:00 AM, [address] [place] [address] [address], [place], [address], Progress Notes * Larisa DEEDOB:1955 (69 yo F)Acc No.[id number]:10/17/2024 Progress Notes Patient: Larisa BATES Provider: Oliva Guerrero MD :1955 A ge:69 Y S ex:Female Date:10/17/2024 Address:[address] [place], [place] [phone] Pcp:Deandra Vaughn MD Subjective: * Chief Complaints: [...] urrent smoker S he was born in [place] and is . She has 2 sons and works at [employer] in [place]. Smoking: Occasional, Exercise: Uses an exercise bike. [...] to the smoking cessation program at [facility]. 4 . M alignant neoplasm of upper-outer [...] MD Date: 0 10/17/2024 Generated for Jannie stover/Baljit/Malinismitting on: 1 05/06/2024 08:20 PM EST History and Physical Notes * [...]
--- OUTSIDE RECORDS SUMMARY | 2024-12-10 11:32 | XMS_ITS ---
Author Organization Rajinder Guerrero III, MD Address [address] [place] [address] Care Team Providers Care Curtains And Draperies Salesperson Name Role Phone Roderick TAPIA, [facility] Primary Care Provider Dr. Rajinder Camargo III Unavailable [phone] REASON FOR VISIT FYI only Social History Sex Assigned At : Social History Observation Description Sex Assigned At Female Encounters Encounter Location Date Provider Diagnosis Rajinder Guerrero III, MD [address] [place] [address] [address] [facility] [place] [address] 12/10/2024 Rajinder Guerrero Plan Of Treatment Next Appt Details Provider Name:Rajinder Guerrero , 06/23/2025 09:45:00 AM, [address] [place] [address] [place], [address], Progress Notes * Larisa HERRERADOB:1955 (69 yo F)Acc No.[id number]:12/10/2024 Patient: Larisa BATES :1955 A ge:69 Y S ex:Female Address:[address] [place] [address] * true * Date: Generated for Cintiai ng/Falittleg/eTransmitting on: 05/06/2024 08:19 PM EST
--- OUTSIDE RECORDS SUMMARY | 2025-02-21 04:00 | XMS_ITS ---
Author Organization Rajinder Guerrero III, MD Address [address] [place] [address] Care Team Providers Care Director Of Managed Services Name Role Phone Roderick TAPIA, [facility] [...] W/U Status Risk Notes Problem Macrocytic anemia (42226443) Macrocytic anemia (D53.9) Active confirmed Her mean [...] Date Provider Diagnosis Rajinder Guerrero III, MD [address] [place] [address] [place] [address] 02/21/2025 Rajinder Guerrero Iron deficiency E61. 1 [...] her to the smoking cessation program at [facility]. 02/21/2025 Raynaud's syndrome without gangrene (ICD-10 [...] Provider Name:Rajinder Guerrero , 06/23/2025 09:45:00 AM, [address] [place] [address], [address], [address], Progress Notes * Larisa DEEDOB:1955 (69 yo F)Acc No.[id number]:02/21/2025 Progress Notes Patient: Larisa BATES Provider: Oliva Guerrero MD :1955 A ge:69 Y S ex:Female Date:02/21/2025 Address:[address] [place], [place] [phone] Pcp:Deandra Vaughn MD Subjective: * Chief Complaints: [...] involved in the weight loss program at [facility] and has been having a cardiac [...] urrent smoker S he was born in [place] and is . She has 2 sons and works at [employer] in [place]. Smoking: Occasional, Exercise: Uses an exercise bike. [...] her to the smoking cessation program at [facility]. 6 . R aynaud's syndrome without [...] Date: 04/23/2024 Generated for Cintiai jolanta/Baljit/eTransmitting on: 05/06/2024 08:19 PM EST History and [...]
--- OUTSIDE RECORDS SUMMARY | 2025-03-06 20:20 | XMS_ITS | Patient Health Record ---
Author Organization [facility] Address [address] [place] [address] Care Team Providers Care Aquatic Habitat Biologist Name Role Phone Deandra Vaughn Primary Care Provider Tevin Moreno Jr Unavailable Allergies Allergen (clinical drug ingredient) Drug/Non Drug Allergy documented on EMR Reaction Allergy Type Onset Date Status Eggs or Egg-derived Products Unknown Drug Allergy Active Gluten Gluten Unknown Allergy Active Reason For Referral No Information Medications Medication SIG (Take, Route, Frequency, Duration) Notes Start Date End Date Status MiraLax (colon prep) 17 GM/SCOOP Powder mixed with Gatorade or Crystal Light Orally begin at 5:00 p.m. the day before the procedure; Duration: 1 day 01/04/2023 Active Losartan Potassium-HCTZ 100-25 MG Tablet Oral; Duration: 90 Activ e Metoprolol Tartrate 50 MG Tablet TAKE 1 TABLET BY MOUTH TWICE A DAY Oral; Duration: 90 Active LORazepam 1 MG Tablet Oral; Duration: 28 Active Pravastatin Sodium 80 MG Tablet Oral; Duration: 90 Active Immunizations Vaccine Route Administration Date Status Comme nts Influenza Unknown 01/04/2022 Administered Social History Tobacco Use: Social History Observation Description Date Details (start date - stop date) Current Smoker NA - NA Social History Drugs/Alcohol: Social Info Question Answer Notes Alcohol Screen Did you have a drink containing alcohol in the past year? 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 Problems Problem Type SNOMED Code ICD Code Onset Dates Problem Status W/U Status Risk Notes Problem Colon cancer screening (874094379) Colon cancer screening (Z12.11) Active confirmed Problem Flatulence, eructation and gas pain (561913791) Bloating (R14.0) Active confirmed Problem Gastroesophageal reflux disease (606728867) GERD (gastroesophageal reflux disease) (K21.9) Active confirmed Problem Gastroesophageal reflux disease (827323495) Gastroesophageal reflux disease, unspecified whether esophagitis present (K21.9) Active confirmed Plan Of Treatment Future Test Test Name Order Date UPPER GI ENDOSCOPY 01/04/2023 COLONOSCOPY 01/04/2023 Insurance Providers Payer Name Payer Address Payer Phone Subscriber Number Group Number Insured Name Patient Relationship to Insured Coverage Start Date Coverage End Date [employer] (No Referra l) [address] [address] [place] [address] [id number] PIYUSH DEE Self - patient is the insured Medical (General) History Medical History History ICD Code Hypertension Hyperlipidemia Left breast cancer, XRT and hormonal the rapy Polycythemia Anxiety Recent seizures, MRI of the brain pendin g Colonoscopy 07/25/08, hyperplastic polyps x2, ten-year followup Surgical History Surgery Date(Month/Year) Left breast cancer, lumpectomy/axillary node dissection 08/02 Cholecystectomy 10/07
--- OUTSIDE RECORDS SUMMARY | 2025-03-06 20:20 | XMS_ITS | Data Portability ---
Author Organization [place] - [facility], Allergy Address [address] [place] [address] Care Team Providers Care Product Managent Intern Name Role Phone TIAGO SEAMAN Primary Care [...] By Organization Details Last Modified Time 06/10/2024 [id number] Patient with hig h body mass index [...] Organization Details Recorded Time Peritonsi llar abscess 97225118 Active 2018 Peritonsi llar abscess; Note: Date Diagnosed : 12/19/2018 4:14 PM (J36) Not Available [facility] 4 02:56:17 Recurrent acute streptoco ccal tonsillit is 89384034535 463042 Active 2021 Acute recurrent streptoco ccal tonsillit is; Note: Date Diagnosed : 07/20/2021 10:23 AM (J03.01) Not Available [facility] 4 02:56:17 Chronic tonsillit is 18911230 Active 2021 Chronic tonsillit is; Note: Date Diagnosed : 11/10/2021 3:33 PM (J35.01) Not Available [facility] 4 02:56:16 Snoring 30422234 Active 2024 LUKE CORTEZ MD [address] [facility],[place] [address], [place], [address] , [facility] - [facility] 5 14:08:39 Hypertrop hy of tonsils 40784415 [facility] 2024 LUKE CORTEZ MD [address] [facility] [facility],[place] [address], [facility] [place], [address] , [facility] - [facility] 14:08:44 Problem Notes None recorded. Procedures Surgical History Date Name Laterality Status Provider Name and Address Organization Details Recorded Time lumpectomy of breast completed LUKE POWER MD [address] [facility],[place] [address], [place], [address], [facility] - [facility] 06/10/2024 14:05:51 incision of gallbladder completed Lynn Belcher [facility] 06/10/2024 14:15:15 Imaging Results None recorded. Procedure Notes None recorded. Medical Equipment None Reported. Allergies Allergen ID Allergen Name Allergen Category Reaction Reaction Severity Criticality Documentation Date Start Date Code Code System Note Provider Name and Address Organization Details Recorded Time 552741 Eggs (edible) (substanc e) food,medi cation other Not available Not available 08/29/2023 93360 3004 SNOMED React ion: unkno wn, unspe cifie d;; Not Available [facility] 4 01:12:27 Medications Name Sig Start Date Stop Date Status Note LastModified by Organization Details LastModified Time losartan 50 mg tablet 07/20 completed Medicati on ID: [id number] D uration Value: 90 Brand Name: losartan [...] 1 mg tablet active Medicati on ID: [id number] B rand Name: marisela ole Send Method: E-Prescr ibed Sub s Allowed: subs OK Speci al Instruct ion: TAKE 1 TABLET BY MOUTH EVERY DAY Medi cationGe nericNam e: anastroz ole Not Available Not Available Not Available clindamyc in HCl 300 mg capsule 1 capsule by mouth 12/29 completed Medicati on ID: [id number] D uration Value: 10 Prescri bed By [...] by mouth 2018 active Medicati on ID: [id number] D uration Value: 5 Prescri bed By [...] mg tablet 07/20 completed Medicati on ID: [id number] B rand Name: losartan -hydroch lorothia zide Sen d Method: E-Prescr ibed Sub s Allowed: subs OK Speci al Instruct ion: TAKE 1 TABLET BY MOUTH EVERY DAY Medi cationGe nericNam e: losartan -hydroch lorothia zide Not Available Not Available Not Available hydrochlo rothiazid e 12.5 mg tablet active Medicati on ID: [id number] B rand Name: hydrochl orothiaz jose Send [...] Updated DateTime 06/10/2024 165.1 cm 36.9 kg/m2 166637.51 g Antionette Galindo [place] - [facility] 06/10/2024 13:53:41 Social History None recorded. [...] ICD10 Code Diagnosis IMO Codes Diagnosis Note [id number] LUKE CORTEZ MD [facility] [address] [place] [address] 06/10/2024 13:44:02 06/10/2024 15:22:07 Snoring 22083492 R06.83 Hypertroph y of tonsils 63016513 J35.1 Body mass index 30+ - obesity 025268007 Z68.36 Health Concerns Section Related Observation LastModified by Organization Detai ls LastModified Time None Recorded Concern Status LastModified by Organization Details LastModified Time None Recorded Advance Directives Directive None Recorded Payers Insurance Date Sequence Insurance Name Policy Number Policy Maradiaga Covered Member ID Maradiaga Member ID Guarantor Name 06/10/2024 1 MEDICARE B-[place]: [facility] [employer] Larisa Dee [id number] Larisa Dee 06/10/2024 1 [employer] (MEDICARE REPLACEMENT/A DVANTAGE - PPO) [id number] Larisa Dee [id number] Larisa Dee Notes Date Note Type Note [...] breast cancer and reflux. LUKE POWER MD [address] [place] [address], [place], [address], [facility] - [facility] 06/10/2024 14:10:24 OBGyn Episode No OBEpisode recorded.
--- OUTSIDE RECORDS SUMMARY | 2025-03-06 20:20 | XMS_ITS | Patient Health Record ---
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 Rajinder Camargo III Unavailable Allergies Allergen (clinical drug ingredient) Drug/Non Drug Allergy documented on EMR Reaction Allergy Type Onset Date Status Egg Protein (Egg White) Unknown Drug Allergy Active tirzepatide Zepbound rash Drug Allergy Activ e Results Component Value Reference Range Notes Complete Blood Count Auto Di ff Reviewed date:04/08/2024 06:11:33 AM Interpretation: Performing Lab:[facility], [address] [place] [address] Notes/Report: White Blood Count 11.0 4.8-10.8 X10*3/uL [...] Phlebotomy Reviewed date:04/08/2024 06:11:33 AM Interpretation: Performing Lab:[facility], [address] [place] [address] Notes/Report: THER/HGB TNP 12.0-16.0 g/dL Lab Results on file. Performed at [facility] on 03/26/24: Hgb: 13.5 g/dl Hct: 41.7 % THER/HCT TNP 37.0-47.0 % Therapeutic Phlebotomy Phlebotomy Performed 500 mls drawn on 03/26/24. Please note that a copy of this report has been sent to the Primary Care Physician, the ordering physician and any physician designated by patient request. Complete Blood Count Auto Di ff Reviewed date:06/09/2024 09:13:32 AM Interpretation: Performing Lab:[facility], [address] [place] [address] Notes/Report: White Blood Count 8.9 4.8-10.8 X10*3/uL [...] Phlebotomy Reviewed date:06/09/2024 09:13:32 AM Interpretation: Performing Lab:[address] [address] Notes/Report: THER/HGB TNP 12.0-16.0 g/dL Lab Results on file. Performed at [facility] on 05/28/24: Hgb: 13.1 g/dl Hct: 40.9 [...] ff Reviewed date:08/03/2024 07:24:43 AM Interpretation: Performing Lab:[address] [address] Notes/Report: White Blood Count 8.5 4.8-10.8 X10*3/uL [...] Phlebotomy Reviewed date:08/03/2024 07:24:43 AM Interpretation: Performing Lab:[facility], [address] [place] [address] Notes/Report: THER/HGB TNP 12.0-16.0 g/dL Lab Results on file. Performed at [facility] on 07/30/24: Hgb: 12.5 g/dl Hct: 37.4% THER/HCT TNP 37.0-47.0 % Therapeutic Phlebotomy TNP Reason: Pre-phlebotomy Hgb/Hct is below the established parameter for this patient. Please note that a copy of this report has been sent to the Primary Care Physician, the ordering physician and any physician designated by patient request. Complete Blood Count Auto Di ff Reviewed date:10/02/2024 01:20:13 PM Interpretation: Performing Lab:[facility], [address] [place] [address] Notes/Report: White Blood Count 8.6 4.8-10.8 X10*3/uL [...] Phlebotomy Reviewed date:10/02/2024 01:20:13 PM Interpretation: Performing Lab:[facility], [address] [place] [address] Notes/Report: THER/HGB TNP 12.0-16.0 g/dL Lab Results on file. Performed at [facility] on 10/01/24: Hgb: 12.1 g/dl Hct: 35.7 [...] ff Reviewed date:12/02/2024 01:40:01 PM Interpretation: Performing Lab:[facility], [address] [place] [address] Notes/Report: White Blood Count 8.0 4.8-10.8 X10*3/uL [...] Phlebotomy Reviewed date:12/02/2024 01:40:01 PM Interpretation: Performing Lab:[facility], [address] [place] [address] Notes/Report: THER/HGB TNP 12.0-16.0 g/dL Lab Results on file. Performed at [facility] on 12/02/24: Hgb: 12.1 g/dl Hct: 36.0 % THER/HCT TNP 37.0-47.0 % Therapeutic Phlebotomy TNP Reason: Pre-phlebotomy Hgb/Hct is below the established parameter for this patient. Please note that a copy of this report has been sent to the Primary Care Physician, the ordering physician and any physician designated by patient request. Complete Blood Count Auto Di ff Reviewed date:02/09/2025 07:31:57 AM Interpretation: Performing Lab:[facility], [address] [place] [address] Notes/Report: White Blood Count 7.1 4.8-10.8 X10*3/uL [...] Auto 0.000 0.0-0.012 X10*3/uL Therapeutic Phlebotomy Reviewed date:02/09/2025 07:31:57 AM Interpretation: Performing Lab:[facility], [address] [place] [phone] Notes/Report: THER/HGB TNP 12.0-16.0 g/dL Lab Results on file. Performed at [facility] on 02/04/25: Hgb: 11.5 g/dl Hct: 34.9 [...] Duration) Notes Start Date End Date Status Diclofenac Sodium 75 MG TAKE 1 TABLET BY MOUTH TWICE A DAY Oral Active Metoprolol Tartrate 50 MG TAKE 1 TABLET BY MOUTH TWICE A DAY Oral Active Losartan Potassium-HCTZ 100-25 MG TAKE 1 TABLET BY MOUTH EVERY DAY Oral Active LORazepam 1 MG Oral Activ e Atorvastatin Calcium 40 MG Oral Active Social History Tobacco Use: Social [...] Problem Status W/U Status Risk Notes Problem 120448522 Obesity (E66.9) Active confirmed She has lost 22 pounds since her last visit. She is using Zepbound. Her regimen was continued unchanged. Problem Postmenopausal state (12923868) Post-menopausal (Z78.0) Active confirmed She has not had a period in several years. Problem Polycythemia vera (875582892) Polycythemia vera (D45) Active confirmed Her polycythemia is stable and her hematocrit is in the normal range. She will have the CBC done every 2 months instead of one now that she is stable. She will avoid taking iron-containin g medications. Problem 77197055 Iron deficiency (E61.1) Active confirmed She is no longer anemic and a mean cell volume is macrocytic. She'll be observed carefully. The iron will be continued. Comprehensive blood work with a ferritin has been ordered.She has been phlebotomize continuously. Close observation will occur and. Treatment used if necessary. Problem 945498412 Raynaud's syndrome without gangrene (I73.00) Active confirmed No further episodes of Raynaud's syndrome have occurred since her last visit. Problem 72321021 Tobacco dependence (F17.200) Active confirmed She continues to smoke and I have made her aware of the health consequences doing so. I have referred her to the smoking cessation program at [facility]. Problem 540169821 Erythrocytosis (D75.1) Active confirmed She will continue the phlebotomy if needed. At this time her hematocrit and hemoglobin are normal. Currently, the increased red cell mass is well controlled. Problem Macrocytic anemia (49119120) Macrocytic anemia (D53.9) Active confirmed Her mean cell volume remains slightly elevated. Her hematocrit varies between 34 and 36. Phlebotomy has not been necessary recently. 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 There was no sign of metastatic disease or recurrence today. Her anastrozole was continued. Problem 517965543 Lobular carcinoma of left breast, stage 1 (C50.912) Active confirmed There is no sign of recurrence. The radiation changes are fading. All scars are well-healed. No masses are palpable. She will continue on the anastrozole for 5 years. She is having no side effects from the drug. Vital Signs Heart Rate 51 /min 02/21/2025 Temperature 98.1 degrees Fahrenheit 02/21/2025 Blood pressure diastolic 56 mm Hg 02/21/2025 Height 65 in 02/21/2025 Blood pressure systolic 126 mm Hg 02/21/2025 Weight 227 lbs 02/21/2025 BMI 37.77 kg/m2 02/21/2025 Encounters Encounter Location Date Provider Diagnosis Rajinder Guererro III, MD [address] [place] [address] [place] [address] 04/18/2024 Rajinder Guerrero Iron deficiency E61. 1 ; Polycythemia vera D45 ; Celiac disease K90.0 ; Tobacco dependence F17.200 ; Raynaud's syndrome without gangrene I73.00 ; Malignant neoplasm of upper-outer quadrant of left female breast, 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 and Morbid obesity E66.01 Rajinder Guerrero III, MD [address] [place] [address] [place] [address] 10/17/2024 Rajinder Guerrero Iron deficiency E61. 1 ; Polycythemia vera D45 ; Tobacco dependence F17.200 ; Malignant neoplasm of upper-outer quadrant of left female breast, 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 and Morbid obesity E66.01 Rajinder Guerrero III, MD [address] [place] [address] [place] [address] 02/21/2025 Rajinder Guerrero Iron deficiency E61. 1 ; Polycythemia vera D45 ; Obesity E66.9 ; Macrocytic anemia D53.9 ; Tobacco dependence F17.200 ; Raynaud's syndrome without gangrene I73.00 and Malignant neoplasm of upper-outer quadrant of left female breast, 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 Rajinder Guerrero III, MD [address] [place] [address] [place] [address] 12/10/2024 Rajinder Guerrero Assessments Encounter Date Diagnosis [...] She will avoid taking iron-containing medications. 02/21/2025 Iron deficiency (ICD-10 - E61.1) She [...] to the smoking cessation program at [facility]. 02/21/2025 Obesity (ICD-10 - E66.9) She has lost 22 pounds since her last visit. She is using Zepbound. Her regimen was continued unchanged. 04/18/2024 Tobacco dependence (ICD-10 - F17.200) She continues to smoke and I have made her aware of the health consequences doing so. I have referred her to the smoking cessation program at [facility]. 10/17/2024 Malignant neoplasm of upper-outer quadrant of left female breast, unspecified estrogen receptor status (ICD-10 - C50.412) She continues with surveillance mammography and breast self examination. There was no sign of metastatic disease or recurrence today. Her anastrozole was continued. 02/21/2025 Macrocytic anemia (ICD-10 - D53.9) Her mean cell volume remains slightly elevated. Her hematocrit varies between 34 and 36. Phlebotomy has not been necessary recently. 04/18/2024 Raynaud's syndrome without gangrene (ICD-10 - [...] regular physical activity.She is now on Zepbound 02/21/2025 Tobacco dependence (ICD-10 - F17.200) She continues to smoke and I have made her aware of the health consequences doing so. I have referred her to the smoking cessation program at [facility]. 04/18/2024 Malignant neoplasm of upper-outer quadrant of left female breast, unspecified estrogen receptor status (ICD-10 - C50.412) She continues with surveillance mammography and breast self examination. There was no sign of metastatic disease or recurrence today. Her anastrozole was continued. 02/21/2025 Raynaud's syndrome without gangrene (ICD-10 - I73.00) No further episodes of Raynaud's syndrome have occurred since her last visit. 04/18/2024 Morbid obesity (ICD-10 - E66.01) She has gained 8 pounds and her body mass index is now 40. We have reviewed diet and nutrition. We have made a plan to lose weight at a rate of one half of a pound per week through a diet restricted in fat calories and sodium combined with regular physical activity. 02/21/2025 Malignant neoplasm of upper-outer quadrant of left female breast, unspecified estrogen receptor status (ICD-10 - C50.412) She continues with surveillance mammography and breast self examination. There was no sign of metastatic disease or recurrence today. Her anastrozole was continued. Plan Of Treatment Pending Test Test Name Order Date PROFILE, FASTING (COMPREHENSIVE METABOLI C) 04/18/2024 PROFILE, RANDOM (COMPREHENSIVE METABOLIC ) 03/21/2022 PROFILE, RANDOM (COMPREHENSIVE METABOLIC ) 02/21/2025 PROFILE, RANDOM (COMPREHENSIVE METABOLIC ) 04/29/2019 PROFILE, [...] CBC w DIFF 03/21/2022 CBC w DIFF 02/21/2025 CBC w DIFF 11/13/2019 CBC w DIFF 07/20/2022 CBC w DIFF 04/29/2019 CBC w DIFF 10/17/2024 CBC w DIFF 10/19/2021 SED RATE (ESR) 12/30/2020 MAMMOGRAM DIGITAL BILATERAL SCREEN 06/14 CBC WITH AUTO DIFF 05/19/2023 CBC WITH AUTO DIFF 09/22/2023 RETIC 06/30/2021 RETIC 02/21/2025 Ferritin 10/17/2024 Ferritin 05/19/2023 Ferritin 04/18/2024 Ferritin 06/30/2021 Ferritin 09/22/2023 Ferritin 02/21/2025 Lipid Panel 04/18/2024 Vitamin B12 and Folate 02/21/2025 Folate 06/30/2021 Next Appt Details Provider Name:Rajinder Guerrero , 06/23/2025 09:45:00 AM, [address] [place] [address] DR, [facility] [address], [place], [address], Insurance Providers Payer Name Payer Address Payer Phone Subscriber Number Group Number Insured Name Patient Relationship to Insured Coverage Start Date Coverage End Date [employer] [address] [place] [phone] [id number] Luiz Larisa Self - patient is the insured MEDICARE NGS [address] [place] [address] [id number] SusanLarisa villalobos Self - patient is the insured Medical (General) History Medical History History ICD Code history of iron deficiency celiac disease bunion left foot history of herpes zoster erythrocytosis episode of Raynaud's syndrome October invasive lobular carcinoma, l eft breast,ER+MO+Her-,8mm,N0 Left breast cancer in 2018, Gallbladder surgery in the past June 2017 invasive lobular carcinoma, l eft breast,ER+MO+Her-,8mm Surgical History Surgery Date(Month/Year) Gallbladder surgery Cholecystectomy 09/2022 drainage tonsillar abscess 12/2018 left breast lumpectomy,SN, invasive lobu lar carcinoma 06/2017 Hospitalization History Reason Date(Month/Year) No history tonsilitis 09/2021
[2025-03-11 05:37] VITALS: BMI 36.4
[2025-03-11 06:53] VITALS: BP 128/60; PULSE 57; RESP 20; TEMP 37.1; O2SAT 96; BMI 36.3
[2025-03-11] MEDS: Lactated Ringers 1,000 ML 100 ML IVCONT (07:08)
--- NOTE | 2025-03-11 07:41 | HO.ANESPROP2 ---
Documented by User: Fátima Marie NP 03/10/25 09:27 HPI - Anesthesia Eval Consult details Narrative: 70 yr old female for upper endoscopy BMI 41 as of 09/2024 BRY: on CPAP PMF Active Problems Active Problems: All Active Problems (Updated 03/06/25 @ 15:37 by Chika Georges CNP) Knee pain (Acute) Cardiomegaly (Acute) Abnormal EKG (Acute) GERD (gastroesophageal reflux disease) (Acute) Anxiety (Acute) Sleep apnea treated with continuous positive airway pressure (CPAP) (Acute) Morbid obesity (Acute) Hypercholesterolemia (Acute) Hypertension (Acute) Back pain (Acute) S/P laparoscopic cholecystectomy (Acute) Acute cholecystitis due to biliary calculus (Acute) Peritonsillar cellulitis (Acute) Peritonsillar cellulitis (Acute) Past Medical History Medical History (Updated 03/10/25 @ 13:10 by David Santana MD) BMI 34.0-34.9,adult Obesity Cardiomegaly Abnormal EKG GERD (gastroesophageal reflux disease) Anxiety Sleep apnea treated with continuous positive airway pressure (CPAP) Morbid obesity Polycythemia Orthostatic dizziness Hypercholesterolemia Hypertension History of left breast cancer Family History Family History (Updated 09/11/24 @ 10:05 by Lani Maloney CMA) Mother Hypertension High cholesterol Angina at rest Father Hypertension High cholesterol Alcoholic Son No problems noted. Son Hx of sleep apnea Family history of problems with anesthesia: No Surgical History Surgical History (Updated 03/11/25 @ 06:59 by Alla Napoles RN) Hx of colonoscopy Hx of bladder endoscopy Hx laparoscopic cholecystectomy (09/20/22) History of lymph node excision History of lumpectomy of left breast History of Problems with Anesthesia: No Social History Social History (Updated 09/11/24 @ 10:06 by Lani Maloney CMA) Household Members: None Housing: House Are you a primary special needs caregiver to a significant other at home: No Do you presently have visiting nurse or other home services: No Alcohol intake: current Alcohol intake frequency: does not drink Patient Tobacco Use Status: Current everyday Tobacco user Tobacco use type: Cigarette Cigarettes Per Day: 1 Years Smoked: 40 Second Hand Smoke Exposure: No Have you been hit, kicked, punched, or otherwise hurt by someone within the past year? If so, by whom?: No Are you DNR?: No Advance Directives: No Advance Directives Information Provided: Yes service: No Current occupational status: employed Meds Allergies Allergy/AdvReac Type Severity Reaction Status Date / Time environmental allergies Allergy Unknown Unknown Verified 10/08/24 11:31 egg (Egg) AdvReac Intermediate Gastrointestinal Verified 10/08/24 11:31 Upset Home Medications ?Medication ?Instructions ?Recorded ?Confirmed ?Last Taken ?Type lorazepam 1 mg tablet 1 mg PO DAILY PRN Anxiety 03/24/20 03/11/25 03/11/25 History losartan 100 1 tab PO DAILY 10/06/21 03/11/25 03/11/25 History mg-hydrochlorothiazide 25 mg tablet pravastatin 80 mg tablet 1 tab PO DAILY 10/06/21 03/11/25 09/19/22 History cholecalciferol (vitamin D3) 50 50 mcg PO DAILY 09/20/22 03/11/25 09/19/22 History mcg (2,000 unit) tablet cyanocobalamin (vitamin B-12) 1,000 mcg PO DAILY 02/20/23 03/11/25 Unknown History 1,000 mcg tablet (Vitamin B-12) Exam Pertinent Lab Results Pertinent Lab Results: Laboratory Tests 12/23/24 02/04/25 08:41 10:09 WBC 7.1 RBC 3.45 L Hgb 11.5 L Hct 34.9 L Plt Count 285 Sodium 140 Potassium 4.7 Chloride 110 H Carbon Dioxide 24 Creatinine 1.11 Narrative Narrative: EKG 12/2024 Vent. Rate : 53 BPM Atrial Rate : 53 BPM P-R Int : 198 ms QRS Dur : 90 ms QT Int : 442 ms P-R-T Axes : 64 2 22 degrees QTcB Int : 414 ms Sinus bradycardia Low voltage QRS Cannot rule out Anterior infarct , age undetermined Abnormal ECG No previous ECGs available Stress ECHO 02/05/25 Findings: At rest images are of good qaulity. There is normal LV systolic function with no wall motion abnormalities. At lows dose images are of good quality. There is good augmentation of overall LV systolic function with no regionalw all motion abnormalities. At peak exercise images were of adequate quality due to some off axis views. There is excellent augmentation of overall LV systolic functuon with small end systolic volume with no regioanal wall motion abnormalities. Conclusion : [place] stress echo is negative for ischemia at achieved HR. ECHO 03/04/25 Conclusions: - The left ventricular systolic function is hyperdynamic. The visually estimated ejection fraction is >70%. - Possible basal inferior hypokinesis, but difficult to assess. - Evidence suggests grade II (moderate) diastolic dysfunction. - No obvious valvular pathology seen on this study. EST 01/21/25 Exercise stress test with exercise 2 min 55 sec of Jose protocol, achieving 65% MPHR with request to stop due to leg fatigue and moderate shortness of breath, no chest discomfort, without arrythmia, without BP check during exercise, with nondiagnostic EKG for ischemia due to supotimal heart rate. Echo images obtained at rest and immediately post peak exercise, Definity contrast use. BP in recovery was normal range. Shortness of breath quickly resolved. Test reviewed with Dr Argueta Assessment and Plan Final Anesthetic Review Family History of Problems with Anesthesia: No History of Problems with Anesthesia: No Documented by User: Sondra Zhong DO 03/11/25 07:43 [facility] Past Medical History Medical History (Updated 03/10/25 @ 13:10 by David Santana MD) BMI 34.0-34.9,adult Obesity Cardiomegaly Abnormal EKG GERD (gastroesophageal reflux disease) Anxiety Sleep apnea treated with continuous positive airway pressure (CPAP) Morbid obesity Polycythemia Orthostatic dizziness Hypercholesterolemia Hypertension History of left breast cancer Family History Family History (Updated 09/11/24 @ 10:05 by Lani Maloney CMA) Mother Hypertension High cholesterol Angina at rest Father Hypertension High cholesterol Alcoholic Son No problems noted. Son Hx of sleep apnea Family history of problems with anesthesia: No Surgical History Surgical History (Updated 03/11/25 @ 06:59 by Alla Napoles RN) Hx of colonoscopy Hx of bladder endoscopy Hx laparoscopic cholecystectomy (09/20/22) History of lymph node excision History of lumpectomy of left breast History of Problems with Anesthesia: No Social History Social History (Updated 09/11/24 @ 10:06 by Lani Colon, [employer]) Household Members: None Housing: House Are you a primary special needs caregiver to a significant other at home: No Do you presently have visiting nurse or other home services: No Alcohol intake: current Alcohol intake frequency: does not drink Patient Tobacco Use Status: Current everyday Tobacco user Tobacco use type: Cigarette Cigarettes Per Day: 1 Years Smoked: 40 Second Hand Smoke Exposure: No Have you been hit, kicked, punched, or otherwise hurt by someone within the past year? If so, by whom?: No Are you DNR?: No Advance Directives: No Advance Directives Information Provided: Yes service: No Current occupational status: employed Meds Allergies Allergy/AdvReac Type Severity Reaction Status Date / Time environmental allergies Allergy Unknown Unknown Verified 10/08/24 11:31 egg (Egg) AdvReac Intermediate Gastrointestinal Verified 10/08/24 11:31 Upset Home Medications ?Medication ?Instructions ?Recorded ?Confirmed ?Last Taken ?Type lorazepam 1 mg tablet 1 mg PO DAILY PRN Anxiety 03/24/20 03/11/25 03/11/25 History losartan 100 1 tab PO DAILY 10/06/21 03/11/25 03/11/25 History mg-hydrochlorothiazide 25 mg tablet pravastatin 80 mg tablet 1 tab PO DAILY 10/06/21 03/11/25 09/19/22 History cholecalciferol (vitamin D3) 50 50 mcg PO DAILY 09/20/22 03/11/25 09/19/22 History mcg (2,000 unit) tablet cyanocobalamin (vitamin B-12) 1,000 mcg PO DAILY 02/20/23 03/11/25 Unknown History 1,000 mcg tablet (Vitamin B-12) Exam Exam Date and Time: 03/11/25 0730 Height,Weight and Vital Signs: Height 5 ft 5 in Weight 98.883 kg Vital Signs Temperature 98.7 F 03/11/25 06:53 Pulse Rate 57 03/11/25 06:53 Respiratory Rate 20 03/11/25 06:53 Blood Pressure 128/60 03/11/25 06:53 Pulse Oximetry 96 03/11/25 06:53 Oxygen Delivery Method Room Air 03/11/25 06:53 Temperature 98.7 F 03/11/25 06:53 Pulse Rate 57 03/11/25 06:53 Respiratory Rate 20 03/11/25 06:53 Blood Pressure 128/60 03/11/25 06:53 Pulse Oximetry 96 03/11/25 06:53 Oxygen Delivery Method Room Air 03/11/25 06:53 Airway Mallampati Class: II TM Dist: <=3cm Neck ROM: Full Loose/Missing/Broken Teeth: No (patient denies any loose or broken teeth) Heart: S1S2 Lungs: CTAB Assessment and Plan Assessment Anesthesia Assessment: Anesthesia Plan Discussed and Chart Reviewed Final Anesthetic Review Family History of Problems with Anesthesia: No History of Problems with Anesthesia: No NPO: Yes ASA Class: III Final Preanesthetic Review: No Changes in Pt Med Stat, Meds/Allgs Chart Reviewed, Consent Obtained/Reviewed and Anes Risks/Benef Reviewed Patient Risk: Intermediate Procedure Risk: Low Anesthetic Plan Anesthetic Plan: MAC:, Neuraxial Block: and Agree w/ Assess. and Plan Disposition: Standard PACU
--- NOTE | 2025-03-11 07:56 | MHC.SHP ---
Pre-Procedural Eval Section A - 24 Hr Update-Section A only Date of Service: 03/11/25 The patient is an INPATIENT: No The patient has been examined within 24 hours of the surgical procedure. The History & Physical has been completed within 30 days and I have reviewed it.: Yes Section B - Complete if H&P > 30 days Chief Complaint: Morbid (severe) obesity due to excess calories Details of Present Illness: GERD Relevant Family History (Specify if Yes): No Relevant Social History: None Present Medications: None Medical History: No relevant PMH History of Previous Operations: No relevant previous surgery Allergies: Allergies Allergy/AdvReac Type Severity Reaction Status Date / Time environmental allergies Allergy Unknown Unknown Verified 10/08/24 11:31 egg (Egg) AdvReac Intermediate Gastrointestinal Verified 10/08/24 11:31 Upset Review of Systems Sugical H&P ROS: Negative: Constitution, Cardiovascular, Respiratory, Neurological, Psychiatric, Hem-Onc, Allergic/Immunologic, Gastrointestinal, Genitourinary, Musculoskeletal, Integumentary, Endocrine and Eyes/Ears/Nose/Throat Exam Surgical H&P Exam: Normal: HEENT, Normal: Heart, Normal: Lungs, Normal: Extremities, Normal: Abdomen, Normal: Skin and Normal: Neurological Plan Diagnosis/Plan: Unchanged (EGD to assess etiology of GERD. Risks of bleeding and perforation were discussed with the patient and she is in agreement with the plan.) I have reviewed the history and physical and performed a pertinent physical examination on my patient. No changes have occurred unless specified. Time Spent With Patient Time: Total time managing care of this patient today ____ minutes.
--- NOTE | 2025-03-11 07:59 | P.BOP_ITS ---
Brief Operative Note Date of Service: 03/11/25 Pre-op diagnosis: GERD Post-op diagnosis: same Procedure: PROCEDURE DATE: 03/11/2025 PREOPERATIVE DIAGNOSIS: GERD POSTOPERATIVE DIAGNOSIS: ?Same as above. 1) moderate diaphragmatic hernia, 2) gastritis PROCEDURE: [id number] with biopsies Surgeon: ?Da Santana M.D.. Ph.D. Filters Assembler: None ? Anesthesia: IV sedation Estimated blood loss: ?Minimal FINDINGS AND PROCEDURE: ? OPERATIVE INDICATIONS: ?The patient is a 70 year old female known to me who is interested in bariatric surgery. The patient has GERD. Based on this information I recommended an upper endoscopy to evaluate the patient's symptoms. Risks and complications of the surgery were discussed with the patient in advance particularly the possibility of perforation or bleeding that may require surgical intervention. The patient understood the risks and was in agreement with the plan. ? PROCEDURE: After informed consent was obtained by the patient, the patient was ?transferred to the Operating Room and was placed in the supine position.? After successful induction of IV sedation, a mouth block was inserted and the patient was placed in the left lateral decubitus position. An upper endoscopy was performed next, the oropharynx and esophagus appeared within the normal limits. There was a moderate size 4cm hiatal hernia. The z- line was smooth. Two biopsies were obtained from the distal esophagus 2-3 cm proximal to the GE junction and two additional biopsies from the GE junction. The stomach was entered and it appeared to be of normal size. There was gastritis at the antrum. There was no stricture or ulcer. A biopsy was obtained from the gastric fundus and the antrum. No significant bleeding was noted from any of the biopsy sites. Retroflexion of the scope confirmed the presence of a moderate size diaphragmatic hernia. The scope was then advanced into the duodenum up to the 4th portion, which appeared to be normal as well. At that point the duodenum ?and the stomach were decompressed and the scope was withdrawn from the patient's mouth. The patient extubated and was transferred in stable condition to the Recovery Room for further care. I was present and performed all steps of the procedure. There were no residents to assist with this case. Da Santana M.D., Ph.D. Surgeon: David Santana MD Anesthesia: MAC Was an Filters Assembler used for this Procedure?: No Estimated blood loss (mL): 0 IV fluids (mL): 400 Urine output (mL): 0 (No Maynard to record output) Pathology: other (1) antrum x1, 2) fundus x1, 3) GE junction x2, 4) distal esophagus x2) Condition: stable Disposition: PACU
[2025-03-11 08:22] VITALS: BP 115/38; PULSE 76; RESP 16; TEMP 36.2; O2SAT 97
[2025-03-11 08:38] VITALS: BP 134/67; PULSE 66; RESP 18; TEMP 36.3; O2SAT 95
== END 2025-03-11 09:33 | disposition home or self-care (01) ==
PROVIDERS: PCP Internal Medicine; Visit Provider Surgery
PROC: 0DJ08ZZ Inspection of Upper Intestinal Tract, Via Natural or Artificial Opening Endoscopic (ICD-10-PCS; CPT 43235; principal; 2025-03-11 08:10)
DX: K21.9 Gastro-esophageal reflux disease without esophagitis (principal); E66.01 Morbid (severe) obesity due to excess calories; Z68.41 Body mass index [BMI] 40.0-44.9, adult; K29.50 Unspecified chronic gastritis without bleeding; K44.9 Diaphragmatic hernia without obstruction or gangrene; R94.31 Abnormal electrocardiogram [ECG] [EKG]; Z85.3 Personal history of malignant neoplasm of breast; Z92.3 Personal history of irradiation; I10 Essential (primary) hypertension; E78.00 Pure hypercholesterolemia, unspecified; D75.1 Secondary polycythemia; J30.9 Allergic rhinitis, unspecified; R42 Dizziness and giddiness; G47.33 Obstructive sleep apnea (adult) (pediatric); Z99.89 Dependence on other enabling machines and devices; Z79.1 Long term (current) use of non-steroidal anti-inflammatories (NSAID); Z79.899 Other long term (current) drug therapy; Z91.0120 Allergy to eggs, unspecified; Z90.49 Acquired absence of other specified parts of digestive tract; Z98.890 Other specified postprocedural states
CPT/HCPCS: 43239; 88305; 88313; 88342; J2704

== ENCOUNTER → 2025-03-11 06:39 | Outpatient (BNV) | payer MEDICARE, SELFPAY | PROVIDERS: PCP Internal Medicine; Visit Provider Surgery | DX: K21.9 Gastro-esophageal reflux disease without esophagitis (principal); K29.00 Acute gastritis without bleeding; K44.9 Diaphragmatic hernia without obstruction or gangrene | CPT/HCPCS: 43239 ==

== ENCOUNTER 2025-03-12 11:19 | Outpatient (REF) | payer MEDICARE, SELFPAY ==
--- NOTE | ~2025-03-12 | XR_ITS ---
EXAMINATION: X-ray bilateral knees CLINICAL INFORMATION: Pain COMPARISON: None TECHNIQUE: AP bilateral knees 2 views. Right knee 3 views. Left knee 3 views. FINDINGS: Right knee: Moderate medial compartment arthritis. Mild lateral compartment arthritis. Medial patellar tilt with moderate-severe patellofemoral arthritis. Prominently oriented foci of sclerosis sclerosis in the medullary cavity of the distal femur, could reflect sequela of postsurgical changes. No acute fracture or dislocation. No significant effusion. Superior patellar enthesopathy. Left knee: Moderate to severe medial compartment arthritis. Mild lateral compartment arthritis. Medial patellar tilt with severe joint space narrowing medially. No acute fracture or dislocation. Small effusion. XR/XR Knee Tru 4V IMPRESSION: Right knee: Tricompartment osteoarthritis more prominent in the medial and patellofemoral compartment. Left knee: Tricompartment arthritis. Prominent in the medial and patellofemoral compartment.. Electronically signed by: Darrin Clifford MD 03/14/2025 08:35 AM NAYAN
--- OUTSIDE RECORDS SUMMARY | 2025-03-12 14:11 | XMS_ITS | Data Portability ---
Author Organization [place] - [facility], Allergy Address [address] [place] [address] Care Team Providers Care Pet Care Technician Name Role Phone TIAGO SEAMAN Primary Care [...] By Organization Details Last Modified Time 06/10/2024 [id number] Patient with hig h body mass index [...] Organization Details Recorded Time Peritonsi llar abscess 18122882 Active 2018 Peritonsi llar abscess; Note: Date Diagnosed : 12/19/2018 4:14 PM (J36) Not Available [facility] 4 02:56:17 Recurrent acute streptoco ccal tonsillit is 80349291913 043617 Active 2021 Acute recurrent streptoco ccal tonsillit is; Note: Date Diagnosed : 07/20/2021 10:23 AM (J03.01) Not Available [facility] 4 02:56:17 Chronic tonsillit is 21812109 Active 2021 Chronic tonsillit is; Note: Date Diagnosed : 11/10/2021 3:33 PM (J35.01) Not Available [facility] 4 02:56:16 Snoring 36956044 Active 2024 LUKE CORTEZ MD [address] [facility],[place] [address], [place], [address] , [facility] - [facility] 5 14:08:39 Hypertrop hy of tonsils 20780455 [facility] 2024 LUKE CORTEZ MD [address] [facility],[place] [address], [place], [address] , [facility] - [facility] 14:08:44 Problem Notes None recorded. Procedures Surgical History Date Name Laterality Status Provider Name and Address Organization Details Recorded Time lumpectomy of breast completed LUKE POWER MD [address] [facility],[place] [address], [place], [address], [facility] - [facility] 06/10/2024 14:05:51 incision of gallbladder completed Lynn Belcher [facility] 06/10/2024 14:15:15 Imaging Results None recorded. Procedure Notes None recorded. Medical Equipment None Reported. Allergies Allergen ID Allergen Name Allergen Category Reaction Reaction Severity Criticality Documentation Date Start Date Code Code System Note Provider Name and Address Organization Details Recorded Time 318871 Eggs (edible) (substanc e) food,medi cation other Not available Not available 08/29/2023 10520 3004 SNOMED React ion: unkno wn, unspe cifie d;; Not Available [facility] 4 01:12:27 Medications Name Sig Start Date Stop Date Status Note LastModified by Organization Details LastModified Time losartan 50 mg tablet 07/20 completed Medicati on ID: [id number] D uration Value: 90 Brand Name: losartan [...] 1 mg tablet active Medicati on ID: [id number] B rand Name: marisela ole Send Method: E-Prescr ibed Sub s Allowed: subs OK Speci al Instruct ion: TAKE 1 TABLET BY MOUTH EVERY DAY Medi cationGe nericNam e: anastroz ole Not Available Not Available Not Available clindamyc in HCl 300 mg capsule 1 capsule by mouth 12/29 completed Medicati on ID: [id number] D uration Value: 10 Prescri bed By [...] by mouth 2018 active Medicati on ID: [id number] D uration Value: 5 Prescri bed By [...] mg tablet 07/20 completed Medicati on ID: [id number] B rand Name: losartan -hydroch lorothia zide Sen d Method: E-Prescr ibed Sub s Allowed: subs OK Speci al Instruct ion: TAKE 1 TABLET BY MOUTH EVERY DAY Medi cationGe nericNam e: losartan -hydroch lorothia zide Not Available Not Available Not Available hydrochlo rothiazid e 12.5 mg tablet active Medicati on ID: [id number] B rand Name: hydrochl orothiaz jose Send [...] Updated DateTime 06/10/2024 165.1 cm 36.9 kg/m2 055344.51 g Antionette Galindo [place] - [facility] 06/10/2024 13:53:41 Social History None recorded. [...] ICD10 Code Diagnosis IMO Codes Diagnosis Note [id number] LUKE CORTEZ MD [facility] [address] [place] [address] 06/10/2024 13:44:02 06/10/2024 15:22:07 Snoring 31791637 R06.83 Hypertroph y of tonsils 37143350 J35.1 Body mass index 30+ - obesity 966260795 Z68.36 Health Concerns Section Related Observation LastModified by Organization Detai ls LastModified Time None Recorded Concern Status LastModified by Organization Details LastModified Time None Recorded Advance Directives Directive None Recorded Payers Insurance Date Sequence Insurance Name Policy Number Policy Maradiaga Covered Member ID Maradiaga Member ID Guarantor Name 06/10/2024 1 MEDICARE B-[place]: [facility] [employer] Larisa Dee [id number] Larisa Dee 06/10/2024 1 [employer] (MEDICARE REPLACEMENT/A DVANTAGE - PPO) [id number] Larisa Dee [id number] Larisa Dee Notes Date Note Type Note [...] breast cancer and reflux. LUKE POWER MD [address] [place] [address], [place], [address], [facility] - [facility] 06/10/2024 14:10:24 OBGyn Episode No OBEpisode recorded.
== END 2025-03-12 11:20 | disposition home or self-care (01) ==
LOC: HO.XRAY 11:19
PROVIDERS: PCP Internal Medicine; Visit Provider Nurse Practitioner
DX: M17.0 Bilateral primary osteoarthritis of knee (principal); M76.51 Patellar tendinitis, right knee
CPT/HCPCS: 73564

== ENCOUNTER → 2025-03-12 11:35 | Outpatient (BNV) | payer MEDICARE, SELFPAY | PROVIDERS: PCP Internal Medicine; Visit Provider Radiology Diagnostic Ultrasound | DX: M17.0 Bilateral primary osteoarthritis of knee (principal) | CPT/HCPCS: 73564 ==

== ENCOUNTER 2025-03-12 13:05 | Outpatient (AMB) | payer MEDICARE, SELFPAY ==
--- OUTSIDE RECORDS SUMMARY | 2023-09-22 10:00 | XMS_ITS ---
Author Organization Rajinder Guerrero III, MD Address [address] [place] [address] Care Team Providers Care Reduction Furnace Operator Helper Name Role Phone Roderick TAPIA, [facility] Primary Care Provider Dr. Rajinder Camargo III Unavailable Allergies Allergen (clinical drug ingredient) Drug/Non Drug Allergy documented on EMR Reaction Allergy Type Onset Date Status No Known Drug Allergy Unknown Drug Allergy Active REASON FOR VISIT Iron deficiency, Left breast Lobular carcinoma, The risks serocytosis, Morbid obesity Medications Medication SIG (Take, Route, Frequency, Duration) Notes Start Date End Date Status Pravastatin Sodium 40 MG 1 tablet Orally Once a day Active Diclofenac Sodium 75 MG TAKE 1 TABLET BY MOUTH TWICE A DAY Oral Active Losartan Potassium-HCTZ 100-25 MG TAKE 1 TABLET BY MOUTH EVERY DAY Oral Active Losartan Potassium 50 MG 1 tablet Orally Once a day Active LORazepam 1 MG 1 tablet Orally once a day Active Social History Tobacco Use: Social History Observation Description Date Details (start date - stop date) Current Smoker NA - NA Sex Assigned At : Social History Observation Description Sex Assigned At Female Tobacco Use/Smoking Question Answer Notes Patient is a current smoker How often do you smoke cigarettes? some days, bu t not every day How many cigarettes a day do you smoke? 5 or les s How soon after you wake up d o you smoke your first cigarette? after 60 minutes Are you interested in quitting? Thinking about q uitting Additional Findings: Tobacco User Light cigarett e smoker ((1-9 cigs/day) Additional Findings: Tobacco Non-User Ex-cigaret te smoker Problems Problem Type SNOMED Code ICD Code Onset Dates Problem Status W/U Status Risk Notes Problem Polycythemia vera (697014702) Polycythemia vera (D45) Active confirmed Her polycythemia is stable and her hematocrit is in the normal range. She will have the CBC done every 2 months instead of one now that she is stable. She will avoid taking iron-containin g medications. Vital Signs Temperature 98.2 degrees Fahrenheit 09/22/19 24 Blood pressure systolic 130 mm Hg 09/22/19 24 Blood pressure diastolic 72 mm Hg 024 Heart Rate 80 /min 09/22/2023 Height 65 in 09/22/2023 Weight 245 lbs 09/22/2023 BMI 40.77 kg/m2 09/22/2023 Encounters Encounter Location Date Provider Diagnosis Rajinder Guerrero III, MD [address] [place] [address] [place] [address] 09/22/2023 Rajinder Guerrero Iron deficiency E61. 1 ; Obesity E66.9 ; Tobacco dependence F17.200 and Polycythemia vera D45 Assessments Encounter Date Diagnosis (ICD Code) Assessment Notes Treatment Notes Treatment Clinical Notes 09/22/2023 Iron deficiency (ICD-10 - E61.1) She is no longer anemic and a mean cell volume is macrocytic. She'll be observed carefully. The iron will be continued. Comprehensive blood work with a ferritin has been ordered. 09/22/2023 Obesity (ICD-10 - E66.9) Her body mass index is 40. We discussed her diet and nutrition. We made a plan to lose weight at a rate of one half of a pound per week. 09/22/2023 Tobacco dependence (ICD-10 - F17.200) She continues to smoke and I have made her aware of the health consequences doing so. I have referred her to the smoking cessation program at [facility]. 09/22/2023 Polycythemia vera (ICD-10 - D45) Her polycythemia is stable and her hematocrit is in the normal range. She will have the CBC done every 2 months instead of one now that she is stable. She will avoid taking iron-containing medications. Plan Of Treatment Medication Medication Name Sig Start Date Stop Date Notes Pravastatin Sodium 40 MG 1 tablet Orally Once a day Diclofenac Sodium 75 MG TAKE 1 TABLET BY MOUTH TWICE A DAY Oral Losartan Potassium-HCTZ 100- 25 MG TAKE 1 TABLET BY MOUTH EVERY DAY Oral Losartan Potassium 50 MG 1 tablet Orally Once a day LORazepam 1 MG 1 tablet Orally once a day Pending Test Test Name Order Date PROFILE, RANDOM (COMPREHENSIVE METABOLIC ) 09/22/2023 CBC WITH AUTO DIFF 09/22/2023 Ferritin 09/22/2023 Next Appt Details Follow Up: 6 Months, Reason: OV Provider Name:Rajinder Guerrero , 06/23/2025 09:45:00 AM, [address] [place] [address], [place] [address], [place], [address], Progress Notes * SHARON TamaraoscarDOB:1955 (68 yo F)Acc No.[id number]:09/22/2023 Progress Notes Patient: Larisa [place] Provider: Oliva Guerrero MD :1955 A ge:68 Y S ex:Female Date:09/22/2023 Address:[address] [place], [place] [phone] Pcp:Deandra Vaughn MD Subjective: * Chief Complaints: * I kassy deficiencyLeft breast Lobular carcinomaThe risks serocytosisMorbid obesity * HPI: C OVID-19 Screening: She returns for management of her history of erythrocytosis iron deficiency and breast cancer. Since her last visit she has been well. She has no new complaints. She has been conducting breast self-examination with negative results. Her blood work was reviewed with her in detail today. Questions H ave you experienced fever, chills, cough, sore throat, shortness of breath, difficulty breathing, muscle aches, loss of taste or smell? N o H ave you been exposed to the virus within the last 10 days? N o H ave you travelled internationally in the last 10 days? N o H ave you been exposed to COVID-19 in the past? Y es * ROS: G eneral/Constitutional: pain o nly normal aches and pains. C hills d enies.?Fatigue a dmits. F ever d enies. E NT: Decreased hearing d enies. R espiratory: Cough d enies. C ardiovascular: Chest pain with exertion d enies. D yspnea on exertion?denies. S hortness of breath d enies. G astrointestinal: Constipation o ccasional. D ecreased appetite d enies. D iarrhea d enies. H eartburn d enies. N ausea d enies. R ectal bleeding d enies. V omiting d enies. H ematology: bruising d enies. p etechiae d enies. S wollen glands n one have been noted. G enitourinary: Frequent urination a small amount. M usculoskeletal: Muscle aches d enies. P ainful joints d enies. S ciatica d enies. W eakness d enies. S kin: Itching d enies. R alesha d enies. S kin lesion(s)?denies. N eurologic: Difficulty speaking d enies. D izziness d enies.?Headache d enies. L ow back pain d enies. P sychiatric: Depressed mood d enies. * Medical History: * Surgical History: l eft breast lumpectomy,SN, invasive lobular carcinoma 06/2017drainage tonsillar abscess 12/2018Cholecystectomy 09/2022 * Hospitalization/Major Diagno stic Procedure: t onsilitis 09/2021 * Family History: F ather: 60 yrs, brain cancer, hypertension, diagnosed with Cancer. M other: 68 yrs, stroke,angina. 6 brother(s) , 1 sister(s) . 2 son(s) - healthy. . Two brothers have hypertension. One brother was diagnosed with RSD. His oldest son has celiac disease. * Social History: T obacco Use: T obacco Use/Smoking P atient is a c urrent smoker H ow often do you smoke cigarettes? s ome days, but not every day H ow many cigarettes a day do you smoke? 5 or less H ow soon after you wake up do you smoke your first cigarette? a fter 60 minutes A re you interested in quitting? T hinking about quitting A dditional Findings: Tobacco User L ight cigarette smoker ((1-9 cigs/day) A dditional Findings: Tobacco Non-User E x-cigarette smoker S he was born in [place] and is . She has 2 sons and works at [employer] in [place]. * Medications: T akingLORazepam 1 MG Tablet 1 tablet Orally once a dayPravastatin Sodium 40 MG Tablet 1 tablet Orally Once a dayLosartan Potassium-HCTZ 100-25 MG Tablet TAKE 1 TABLET BY MOUTH EVERY DAY Oral Diclofenac Sodium 75 MG Tablet Delayed Release TAKE 1 TABLET BY MOUTH TWICE A DAY Oral Taking LORazepam 1 MG Tablet 1 tablet Orally once a dayTaking Pravastatin Sodium 40 MG Tablet 1 tablet Orally Once a dayTaking Losartan Potassium-HCTZ 100-25 MG Tablet TAKE 1 TABLET BY MOUTH EVERY DAY Oral Taking Diclofenac Sodium 75 MG Tablet Delayed Release TAKE 1 TABLET BY MOUTH TWICE A DAY Oral DiscontinuedLosartan Potassium 50 MG Tablet 1 tablet Orally Once a dayMedication List reviewed and reconciled with the patientDiscontinued Losartan Potassium 50 MG Tablet 1 tablet Orally Once a dayMedication List reviewed and reconciled with the patient * Allergies: N o Known Drug Allergyno[Allergies Verified] Objective: * Vitals: H t: 65, Wt:245, BMI:40.77, BP:130/72, HR:80, Temp:98.2, Wt-k.13. * P ast Orders: Lab:Therapeutic Phlebotomy * Order Date 08/08/2023 06/09/2023 03/29/2023 THER/HCT TNP (Ref Range: 37.0-47.0 %) TNP (Ref Range: 37.0-47.0 %) TNP (Ref Range: 37.0-47.0 %) THER/HGB TNP (Ref Range: 12.0-16.0 g/dL) TNP (Ref Range: 12.0-16.0 g/dL) TNP (Ref Range: 12.0-16.0 g/dL) Therapeutic Phlebotomy Phlebotomy Perfor med TNP Phlebotomy Performed * Lab:Complete Blood Count Aut o Diff * Order Date 09/20/2023 08/08/2023 06/09/2023 White Blood Count 7.2 (Ref Range: 4.8-10.8 X10*3/uL) 8.0 (Ref Range: 4.8-10.8 X10*3/uL) 6.7 (Ref Range: 4.8-10.8 X10*3/uL) Red Blood Count 4.09 L (Ref Range: 4.20-5.50 X10*6/uL) 4.32 (Ref Range: 4.20-5.50 X10*6/uL) 4.14 L (Ref Range: 4.20-5.50 X10*6/uL) Hemoglobin 13.4 (Ref Range: 12.0-16.0 g/dl) 14.1 (Ref Range: 12.0-16.0 g/dl) 13.6 (Ref Range: 12.0-16.0 g/dl) Hematocrit 41.5 (Ref Range: 37.0-47.0 %) 42.4 (Ref Range: 37.0-47.0 %) 40.3 (Ref Range: 37.0-47.0 %) Mean Corpuscular Volume 101.5 H (Ref Range: 80.0-98.0 fL) 98.1 H (Ref Range: 80.0-98.0 fL) 97.3 (Ref Range: 80.0-98.0 fL) Mean Corpuscular Hemoglobin 32.8 (Ref Range: 27.0-33.0 pg) 32.6 (Ref Range: 27.0-33.0 pg) 32.9 (Ref Range: 27.0-33.0 pg) Mean Corpuscular HGB Conc 32.3 (Ref Range: 31.0-35.0 g/dl) 33.3 (Ref Range: 31.0-35.0 g/dl) 33.7 (Ref Range: 31.0-35.0 g/dl) Red Cell Distribution Width 13.9 (Ref Range: 11.0-16.0 %) 13.4 (Ref Range: 11.0-16.0 %) 14.1 (Ref Range: 11.0-16.0 %) Platelet Count 325 (Ref Range: 160-400 X10*3/uL) 354 (Ref Range: 160-400 X10*3/uL) 338 (Ref Range: 160-400 X10*3/uL) Mean Platelet Volume 10.7 (Ref Range: 9.4-12.3 fL) 9.6 (Ref Range: 9.4-12.3 fL) 9.8 (Ref Range: 9.4-12.3 fL) Neutrophils Percent Auto 71.9 (Ref Range: 45-73 %) 71.7 (Ref Range: 45-73 %) 62.2 (Ref Range: 45-73 %) Imm Gran Pct Auto 0.3 (Ref Range: 0.0-0.4 %) 0.4 (Ref Range: 0.0-0.4 %) 0.1 (Ref Range: 0.0-0.4 %) Lymphocytes Percent Auto 17.5 L (Ref Range: 20-40 %) 17.0 L (Ref Range: 20-40 %) 24.7 (Ref Range: 20-40 %) Monocytes Percent Auto 8.0 (Ref Range: 2-11 %) 9.0 (Ref Range: 2-11 %) 10.4 (Ref Range: 2-11 %) Eosinophils Percent Auto 1.9 (Ref Range: 0-4 %) 1.4 (Ref Range: 0-4 %) 1.9 (Ref Range: 0-4 %) Basophils Percent Auto 0.4 (Ref Range: 0-2 %) 0.5 (Ref Range: 0-2 %) 0.7 (Ref Range: 0-2 %) NRBC Pct Auto 0.0 (Ref Range: 0.0-0.2 /100WBC) 0.0 (Ref Range: 0.0-0.2 /100WBC) 0.0 (Ref Range: 0.0-0.2 /100WBC) Neutrophils Absolute Auto 5.2 (Ref Range: 2.0-8.3 x10*3/uL) 5.7 (Ref Range: 2.0-8.3 x10*3/uL) 4.2 (Ref Range: 2.0-8.3 x10*3/uL) Imm Gran Abs Auto 0.02 (Ref Range: 0.00-0.03 X10*3/uL) 0.03 (Ref Range: 0.00-0.03 X10*3/uL) 0.01 (Ref Range: 0.00-0.03 X10*3/uL) Lymphocytes Absolute Auto 1.3 (Ref Range: 1.2-4.9 X10*3/uL) 1.4 (Ref Range: 1.2-4.9 X10*3/uL) 1.7 (Ref Range: 1.2-4.9 X10*3/uL) Monocytes Absolute Auto 0.6 (Ref Range: 0.1-1.2 X10*3/uL) 0.7 (Ref Range: 0.1-1.2 X10*3/uL) 0.7 (Ref Range: 0.1-1.2 X10*3/uL) Eosinophils Absolute Auto 0.1 (Ref Range: 0.0-0.4 X10*3/uL) 0.1 (Ref Range: 0.0-0.4 X10*3/uL) 0.1 (Ref Range: 0.0-0.4 X10*3/uL) Basophils Absolute Auto 0.0 (Ref Range: 0.0-0.2 X10*3/uL) 0.0 (Ref Range: 0.0-0.2 X10*3/uL) 0.1 (Ref Range: 0.0-0.2 X10*3/uL) NRBC Abs Auto 0.000 (Ref Range: 0.0-0.012 X10*3/uL) 0.000 (Ref Range: 0.0-0.012 X10*3/uL) 0.000 (Ref Range: 0.0-0.012 X10*3/uL) * Lab:Comprehensive Met. Panel * Order Date 09/20/2023 03/29/2023 03/04/2022 Sodium 144 (Ref Range: 135-145 mmol/L) 141 (Ref Range: 135-145 mmol/L) 139 (Ref Range: 135-145 mmol/L) Bilirubin Total 0.5 (Ref Range: 0.0-1.0 mg/dL) 0.4 (Ref Range: 0.0-1.0 mg/dL) 0.4 (Ref Range: 0.0-1.0 mg/dL) Aspartate Amino Transferase 19 (Ref Range: 5-31 U/L) 18 (Ref Range: 5-31 U/L) 16 (Ref Range: 5-31 U/L) Alanine Aminotransferase 20 (Ref Range: 0-31 U/L) 16 (Ref Range: 0-31 U/L) 17 (Ref Range: 0-31 U/L) Total Protein 7.2 (Ref Range: 6.5-8.0 g/dL) 7.5 (Ref Range: 6.5-8.0 g/dL) 7.1 (Ref Range: 6.5-8.0 g/dL) Albumin Level 3.9 (Ref Range: 3.5-5.0 g/dL) 4.0 (Ref Range: 3.5-5.0 g/dL) 4.0 (Ref Range: 3.5-5.0 g/dL) Alkaline Phosphatase 77 (Ref Range: 39-117 U/L) 77 (Ref Range: 39-117 U/L) 72 (Ref Range: 39-117 U/L) Potassium 4.6 (Ref Range: 3.3-5.1 mmol/L) 4.3 (Ref Range: 3.3-5.1 mmol/L) 4.6 (Ref Range: 3.3-5.1 mmol/L) Chloride 109 H (Ref Range: 96-108 mmol/L) 105 (Ref Range: 96-108 mmol/L) 102 (Ref Range: 96-108 mmol/L) Carbon Dioxide 25 (Ref Range: 22-29 mmol/L) 26 (Ref Range: 22-29 mmol/L) 25 (Ref Range: 22-29 mmol/L) Anion Gap 15 (Ref Range: 12-20) 14 (Ref Range: 12-20) 17 (Ref Range: 12-20) Blood Urea Nitrogen 17 H (Ref Range: 9-16 mg/dL) 21 H (Ref Range: 9-16 mg/dL) 20 H (Ref Range: 9-16 mg/dL) Creatinine 0.87 (Ref Range: 0.5-1.4 mg/dL) 1.03 (Ref Range: 0.5-1.4 mg/dL) 0.91 (Ref Range: 0.5-1.4 mg/dL) Estimated Glomerular Filt Rate > 60 53 > 60 Glucose Random 98 (Ref Range: 60-115 mg/dL) 83 (Ref Range: 60-115 mg/dL) 97 (Ref Range: 60-115 mg/dL) Calcium 9.4 (Ref Range: 8.4-10.2 mg/dL) 9.1 (Ref Range: 8.4-10.2 mg/dL) 9.1 (Ref Range: 8.4-10.2 mg/dL) ???Lab:Ferritin (Order Date - 09/20/2023) (Collection Date - 09/20/2023)? ValueReference Range?[id number] - ng/mL * Examination: G eneral Examination: GENERAL APPEARANCE: p rodrigo, well nourished, well developed, in no acute distress, calm and relaxed , morbidly obese , woman. HEAD: a traumatic, normocephalic. EYES: e geovany, perrla, anicteric, conjugate. EARS: n ormal. NOSE: s eptum intact. ORAL CAVITY: n ormal, unremarkable. NECK/THYROID: n o jugular venous distention, no carotid bruit, thyroid normal. LYMPH NODES: n o enlarged lymph nodes,spleen normal. SKIN: n o suspicious lesions, anicteric. HEART: n o clicks, gallops, murmurs, or rubs, regular rhythm, S1, S2 normal, no s3, or vascular bruits. LUNGS: c lear to auscultation . BREASTS: n ot examined. ABDOMEN: b owel sounds normal, no ascites, no organomegaly, no mass , morbid obesity. RECTAL EXAM: n ot examined. MUSCULOSKELETAL: e xtremities unremarkable, no clubbing, cyanosis or edema. PERIPHERAL PULSES: n ormal. NEUROLOGIC: a lert and oriented, cranial nerves 2-12 grossly intact, deep tendon reflexes 2+ symmetrical, motor strength normal upper and lower extremities, sensory exam intact. PSYCH: a lert, oriented. Assessment: * Assessment: 1. I kassy deficiency - E61.1 (Primary), She is no longer anemic and a mean cell volume is macrocytic. She'll be observed carefully. The iron will be continued. Comprehensive blood work with a ferritin has been ordered. 2 . O besity - E66.9, Her body mass index is 40. We discussed her diet and nutrition. We made a plan to lose weight at a rate of one half of a pound per week. 3 . Tobacco dependence - F17.200, She continues to smoke and I have made her aware of the health consequences doing so. I have referred her to the smoking cessation program at [facility]. 4. P olycythemia vera - D45, Her polycythemia is stable and her hematocrit is in the normal range. She will have the CBC done every 2 months instead of one now that she is stable. She will avoid taking iron-containing medications. Plan: * Treatment: 2. O besity L AB: PROFILE, RANDOM (COMPREHENSIVE METABOLIC) L AB: CBC WITH AUTO DIFF L AB: Ferritin * Procedure Codes: * Preventive Medicine: Counseling: C are goal follow-up plan: Counseling for abnormal BMI given Y es Above Normal BMI Follow-up D ietary management education, guidance, and counseling, Dietary needs education, Exercise promotion: strength training, Exercise promotion: stretching, Feeding regime, Giving encouragement to exercise, Lifestyle education regarding diet, Nutrition / feeding management, Nutrition therapy, Prescribed activity/exercise education, Prescribed diet education, Prescribed dietary intake, Special diet education, Weight monitoring , Intervention, Order not done: Medical or Other reason not done S moking/Tobacco Use Patient counseled on the dangers of tobacco use and urged to quit. 0 09/22/2023 Patient Lifestyle Goals P atient wants to quit Treatment Goals C ut down by 1 cigarette a week, Set a quit date Barriers S tress Self-Management Plan M analia a plan to cut down number of cigarettes over time and set a date to work towards quitting * Follow Up: 6 Months (Reason: OV) * Images: * Sign off status: Completed true * Provider: Oliva Guerrero MD Date: 0 09/22/2023 Generated for Jannie stover/Baljit/Annalise on: 05/12/2024 04:11 PM EST History and Physical Notes * HPI (History of Present Illness) Category Sub-Category Detail Notes COVID-19 Screening Questions Have you had any new onset fever, chills, cough, congestion, sore throat, shortness of breath, muscle aches?: No Have you been exposed to the virus withi n the last 10 days?: No Have you travelled internationally in e last 10 days?: No Have you been exposed to COVID-19 in the past?: Yes Examination Category Sub-Category Detail Notes General Examination GENERAL APPEARANCE: pleasant , well nourished, well developed, in no acute distress, calm and relaxed , morbidly obese , woman HEAD: atraumatic, normocep halic EYES: eomi, perrla, anicte kanwal, conjugate EARS: normal NOSE: septum intact NECK/THYROID: no jugular venous di stention, no carotid bruit, thyroid normal HEART: no clicks, gallops, murmurs, or rubs, regular rhythm, S1, S2 normal, no s3, or vascular bruits LUNGS: clear to auscultatio n ABDOMEN: bowel sounds normal, no ascites, no organomegaly, no mass , morbid obesity NEUROLOGIC: alert and oriented, cranial nerves 2-12 grossly intact, deep tendon reflexes 2+ symmetrical, motor strength normal upper and lower extremities, sensory exam intact SKIN: no suspicious lesion s, anicteric PERIPHERAL PULSES: normal BREASTS: not examined MUSCULOSKELETAL: extremities unremark able, no clubbing, cyanosis or edema LYMPH NODES: no enlarged lymph no wilfrido,spleen normal RECTAL EXAM: not examined PSYCH: alert, oriented ORAL CAVITY: normal, unremarkable
--- OUTSIDE RECORDS SUMMARY | 2024-03-25 13:15 | XMS_ITS ---
Author Organization Rajinder Guerrero III, MD Address [address] [place] [address] [place] [address] Care Team Providers Care Application Assistant Name Role Phone Roderick TAPIA, Deandra Primary Care Provider Dr. Rajinder Camargo III Unavailable REASON FOR VISIT Follow-up Social History Sex Assigned At : Social History Observation Description Sex Assigned At Female Encounters Encounter Location Date Provider Diagnosis Rajinder Guerrero III, MD [address] [place] [address] [place] [address] 03/25/2024 Rajinder Guerrero Plan Of Treatment Next Appt Details Provider Name:Rajinder Guerrero , 06/23/2025 09:45:00 AM, [address] [place] [address] [place], [address], Progress Notes * Larisa DEEDOB:1955 (70 yo F)Acc No.[id number]:03/25/2024 Progress Notes Patient: Larisa BATES Provider: Oliva Guerrero MD :1955 A ge:69 Y S ex:Female Date:03/25/2024 Address:[address] [place], [place] [address] [id number] Pcp:Deandra Vaughn MD Subjective: * Chief Complaints: * 1 . Follow-up. * Medical History: Objective: * Vitals: Assessment: Plan: * Treatment: * Images: * The named appointment provid er may or may not be the originator of this progress note, and it is not deemed complete until electronically signed by the appointment provider. Sign off status: Pending * Provider: Oliva Guerrero MD Date: 05/26/2023 Generated for Jannie stover/Baljit/Annalise on: 05/12/2024 04:11 PM EST
--- OUTSIDE RECORDS SUMMARY | 2024-10-17 04:15 | XMS_ITS ---
Author Organization Rajinder Guerrero III, MD Address [address] [place] [address] Care Team Providers Care Management Psychologist Name Role Phone Roderick TAPIA, [facility] Primary Care Provider Dr. Rajinder [...] Provider Diagnosis Rajinder Guerrero III, MD [address] [place] [address] [place] [address] 10/17/2024 Rajinder Rodriguesne Iron deficiency E61. 1 [...] her to the smoking cessation program at [facility]. 10/17/2024 Malignant neoplasm of upper-outer quadrant [...] Provider Name:Rajinder Rodriguesne , 06/23/2025 09:45:00 AM, [address] [place] [address] [address], [place], [address], Progress Notes * Larisa DEEDOB:1955 (69 yo F)Acc No.[id number]:10/17/2024 Progress Notes Patient: Larisa BATES Provider: Oliva Guerrero MD :1955 A ge:69 Y S ex:Female Date:10/17/2024 Address:[address] [place], [place] [phone] Pcp:Deandra Vaughn MD Subjective: * Chief Complaints: [...] urrent smoker S he was born in [place] and is . She has 2 sons and works at [employer] in [place]. Smoking: Occasional, Exercise: Uses an exercise bike. [...] her to the smoking cessation program at [facility]. 4 . M alignant neoplasm of [...] 10/17/2024 Generated for Jannie stover/Baljit/Katerineitting on: 1 05/12/2024 04:12 PM EST History and Physical Notes * [...]
--- OUTSIDE RECORDS SUMMARY | 2024-12-10 11:32 | XMS_ITS ---
Author Organization Rajinder Guerrero III, MD Address [address] [place] [address] Care Team Providers Care Media Manager Name Role Phone Roderick TAPIA, [facility] Primary Care Provider Dr. Rajinder Camargo III Unavailable REASON FOR VISIT FYI only Social History Sex Assigned At : Social History Observation Description Sex Assigned At Female Encounters Encounter Location Date Provider Diagnosis Rajinder Guerrero III, MD [address] [place] [address] [address] [facility] [place] [address] 12/10/2024 Rajinder Guerrero Plan Of Treatment Next Appt Details Provider Name:Rajinder Guerrero , 06/23/2025 09:45:00 AM, [address] [place] [address] [place], [address], Progress Notes * Larisa HERRERADOB:1955 (69 yo F)Acc No.[id number]:12/10/2024 Patient: Larisa BATES :1955 A ge:69 Y S ex:Female Address:[address] [place] [address] * true * Date: Generated for Cintiai ng/Falittleg/eTransmitting on: 05/12/2024 04:10 PM EST
--- OUTSIDE RECORDS SUMMARY | 2025-02-21 04:00 | XMS_ITS ---
Author Organization Rajinder Guerrero III, MD Address [address] [place] [address] Care Team Providers Care Power And Recovery Shift Engineer Name Role Phone Roderick TAPIA, [facility] Primary Care Provider Dr. Rajinder [...] W/U Status Risk Notes Problem Macrocytic anemia (13221961) Macrocytic anemia (D53.9) Active confirmed Her mean [...] Provider Diagnosis Rajinder Guerrero III, MD [address] [place] [address] [place] [address] 02/21/2025 Rajinder Guerrero Iron deficiency E61. 1 [...] the smoking cessation program at [facility]. 02/21/2025 Raynaud's syndrome without gangrene (ICD-10 [...] Provider Name:Rajinder Guerrero , 06/23/2025 09:45:00 AM, [address] [place] [address], [address], [address], Progress Notes * Larisa DEEDOB:1955 (69 yo F)Acc No.[id number]:02/21/2025 Progress Notes Patient: Larisa BATES Provider: Oliva Guerrero MD :1955 A ge:69 Y S ex:Female Date:02/21/2025 Address:[address] [place], [place] [phone] Pcp:Deandra Vaughn MD Subjective: * Chief Complaints: [...] involved in the weight loss program at [facility] and has been having a cardiac [...] urrent smoker S he was born in [place] and is . She has 2 sons and works at [employer] in [place]. Smoking: Occasional, Exercise: Uses an exercise [...] the smoking cessation program at [facility]. 6 . R aynaud's syndrome without [...] Date: 04/23/2024 Generated for Cintiai jolanta/Baljit/eTransmitting on: 05/12/2024 04:11 PM EST History and [...]
--- NOTE | 2025-03-12 13:18 | MHC.OFFVISWM ---
VS Expanded 03/12/25 13:24 BP 131/62 Blood Pressure Location Rt brachial Blood Pressure Position Sitting Pulse 54 Pulse Source Pulse Oximeter Temp 96.7 F L Temperature Source Temporal Artery Scan Pulse Oximetry 96 Oxygen Delivery Method Room Air Height 5 ft 5 in Weight 217 lb BMI 36.1 Body Fat % 46.1 Body Fat Mass 100.0 Fat Free Mass 116.8 Visceral Fat Rating 14.0 Body Water % 38.0 Body Water Mass 82.4 Muscle Mass/Score 110.8 Basal Metabolic Rate/Score 1,632 Intake Visit Reasons: OV Follow Up SWL / Knee Pain Allergies environmental allergies Allergy (Unknown, Verified 03/12/25 13:29) Unknown egg (Egg) Adverse Reaction (Intermediate, Verified 03/12/25 13:29) Gastrointestinal Upset HPI Comments Details: 70-year-old woman complaining of left knee pain. Pain is mostly in the back/outside of the knee feels like a ?pulled muscle or tendon.? Pain worse with stairs and hills. Not using an assistive device but notes a mild limp when walking. Can not take NSAIDs as she is preparing for lap sleeve gastrectomy next week with Dr. Santana. Has had similar issues with her knee in the past she had a cortisone injection from her PCP many years ago which was very helpful. Mentions history of bakers cyst. Has a knee sleeve at home which is somewhat helpful. She was unable to exercise for a few days due to pain, but has restarted her stationary bike almost everyday. Her pain seems to be improving she has been able to use the stationary bike again. When discussing her meal plan which Dr. Baptiste recently changed on Monday, she reports new bloating. She states this plan has more shakes and more almond milk. Has intolerance/abd distention with regular milk. Current meal plan: 2 Celebrate Rebuild protein shakes (ONE scoop EACH in 8oz almond milk) at 5am-7am and 8am-10am and THREE Celebrate Rebuild protein shake with TWO scoops in 8oz of almond milk at 11am-1pm, 2pm-4pm and 5pm-7pm Exercise plan: Stationary bike 35 mins in the morning and another 35 in the evening - almost every day. Burning 300 calories/day Had 3 days off due to knee pain, but better now [facility] Medical History (Updated 03/12/25 @ 14:54 by Chika Georges CNP) Back pain BMI 34.0-34.9,adult Obesity Cardiomegaly Abnormal EKG GERD (gastroesophageal reflux disease) Anxiety Sleep apnea treated with continuous positive airway pressure (CPAP) Morbid obesity Polycythemia Orthostatic dizziness Hypercholesterolemia Hypertension History of left breast cancer Surgical History History of esophagogastroduodenoscopy (EGD) Hx of colonoscopy Hx of bladder endoscopy Hx laparoscopic cholecystectomy (09/20/22) History of lymph node excision History of lumpectomy of left breast Family History Mother Hypertension High cholesterol Angina at rest Father Hypertension High cholesterol Alcoholic Son No problems noted. Son Hx of sleep apnea Social History Household Members: None Housing: House Are you a primary transitions rn care coordinator to a significant other at home: No Do you presently have visiting nurse or other home services: No Alcohol intake: current Alcohol intake frequency: does not drink Patient Tobacco Use Status: Current everyday Tobacco user Tobacco use type: Cigarette Cigarettes Per Day: 1 Years Smoked: 40 Second Hand Smoke Exposure: No service: No Current occupational status: employed Physical Exam Vital Signs: Last Vital Signs Temp 96.7 F L 03/12/25 13:24 Pulse 54 03/12/25 13:24 BP 131/62 03/12/25 13:24 Pulse Ox 96 03/12/25 13:24 Oxygen Delivery Method Room Air 03/12/25 13:24 BMI result Body Mass Index 36.1 Const General: cooperative, healthy appearing, comfortable and no acute distress Orientation/consciousness: patient oriented x3 Neuro General: patient oriented x3 Extrem Other: Musculoskeletal exam: left knee Able to arise from seated position without difficulty Gait: subtle left-sided limp. No assistive device Edema: mild around knee, mild swelling to posterior knee, potentially small bakers cyst Tenderness to palpation: lateral joint line Neurovascularly intact Full ROM 0-120 degrees + Quad raise + D/P flexion Stable to valgus and varus stress Results Reviewed Results Reviewed: Imaging: X-rays obtained and independently reviewed with patient in office today. Awaiting radiologist final read. 4 views bilateral knees x-rays show moderate joint space narrowing, more advanced on medial aspects. There is squaring off of the tibia and subchondral sclerosis. Small bone spurs noted medially and on the patella. Assessment & Plan Assessment & Plan (1) Osteoarthritis of knees, bilateral: Code(s): M17.0 - Bilateral primary osteoarthritis of knee Category: Medical Plan: Assessment: patient has moderate osteoarthritis of bilateral knees Plan: -first-line treatments include NSAIDs both oral and topical, as needed knee brace/sleeve, activity modification, and low-impact exercises such as stationary bike and swimming. - Daily exercise low impact such as stationary bike which she is utilizing. Recommend heat before exercise and ice after for recovery, as needed. She uses the knee brace as needed, only somewhat helpful. - As she is preparing for lap sleeve gastrectomy she can not take oral NSAIDs and they would be very limited postop as well. I recommend topical Voltaren gel following instructions on package. Tylenol OTC is an option, since it is not an NSAID. Max 3000mg/day - Offered discounted membership to the [employer] if she wants to try swimming, she declined for now. - Offered a handout with knee strengthening exercises, she declined for now. - I offered cortisone injection and we can make an appointment in the future. She declined for now. Follow up: prn (2) Left knee pain: Code(s): M25.562 - Pain in left knee Category: Medical Plan: .
[2025-03-12 13:24] VITALS: BP 131/62; PULSE 54; TEMP 35.9; O2SAT 96; BMI 36.1
--- OUTSIDE RECORDS SUMMARY | 2025-03-12 16:11 | XMS_ITS | Patient Health Record ---
Author Organization [facility] Address [address] [place] [address] Care Team Providers Care Masking Machine Feeder Name Role Phone Deandra Vaughn Primary Care [...] Status Risk Notes Problem Colon cancer screening (985268628) Colon cancer screening (Z12.11) Active confirmed Problem Flatulence, eructation and gas pain (786803915) Bloating (R14.0) Active confirmed Problem Gastroesophageal reflux disease (704931419) GERD (gastroesophageal reflux disease) (K21.9) Active confirmed Problem Gastroesophageal reflux disease (778228987) Gastroesophageal reflux disease, unspecified whether esophagitis present (K21.9) Active confirmed Plan Of Treatment Future Test Test Name Order Date UPPER GI ENDOSCOPY 01/04/2023 COLONOSCOPY 01/04/2023 Insurance Providers Payer Name Payer Address Payer Phone Subscriber Number Group Number Insured Name Patient Relationship to Insured Coverage Start Date Coverage End Date [employer] (No Referra l) [address] [address] [place] [address] [id number] PIYUSH DEE Self - patient is the insured Medical (General) History Medical History History ICD Code Hypertension Hyperlipidemia Left breast cancer, XRT and hormonal the rapy Polycythemia Anxiety Recent seizures, MRI of the brain pendin g Colonoscopy 07/25/08, hyperplastic polyps x2, ten-year followup Surgical History Surgery Date(Month/Year) Left breast cancer, lumpectomy/axillary node dissection 08/02 Cholecystectomy 10/07
--- OUTSIDE RECORDS SUMMARY | 2025-03-12 16:12 | XMS_ITS | Patient Health Record ---
Author Organization Rajinder Guerrero III, MD Address [address] [place] [address] Care Team Providers Care Hematologist Name Role Phone Roderick TAPIA, [facility] Primary Care Provider Dr. Rajinder Camargo III Unavailable [phone] Allergies Allergen (clinical drug ingredient) Drug/Non Drug Allergy documented on EMR Reaction Allergy Type Onset Date Status Egg Protein (Egg White) Unknown Drug Allergy Active tirzepatide Zepbound rash Drug Allergy Activ e Results Component Value Reference Range Notes Complete Blood Count Auto Di ff Reviewed date:04/08/2024 06:11:33 AM Interpretation: Performing Lab:[facility], [address] [place] [address] Notes/Report: White Blood Count 11.0 4.8-10.8 X10*3/uL [...] Phlebotomy Reviewed date:04/08/2024 06:11:33 AM Interpretation: Performing Lab:[facility], [address] [place] [phone] Notes/Report: THER/HGB TNP 12.0-16.0 g/dL Lab Results on file. Performed at [facility] on 03/26/24: Hgb: 13.5 g/dl Hct: 41.7 % THER/HCT TNP 37.0-47.0 % Therapeutic Phlebotomy Phlebotomy Performed 500 mls drawn on 03/26/24. Please note that a copy of this report has been sent to the Primary Care Physician, the ordering physician and any physician designated by patient request. Complete Blood Count Auto Di ff Reviewed date:06/09/2024 09:13:32 AM Interpretation: Performing Lab:[facility], [address] [place] [phone] Notes/Report: White Blood Count 8.9 4.8-10.8 X10*3/uL [...] Phlebotomy Reviewed date:06/09/2024 09:13:32 AM Interpretation: Performing Lab:[address] [phone] Notes/Report: THER/HGB TNP 12.0-16.0 g/dL Lab Results on file. Performed at [facility] on 05/28/24: Hgb: 13.1 g/dl Hct: [...] ff Reviewed date:08/03/2024 07:24:43 AM Interpretation: Performing Lab:[address] [address] Notes/Report: White Blood Count 8.5 4.8-10.8 X10*3/uL [...] Phlebotomy Reviewed date:08/03/2024 07:24:43 AM Interpretation: Performing Lab:[facility], [address] [place] [phone] Notes/Report: THER/HGB TNP 12.0-16.0 g/dL Lab Results on file. Performed at [facility] on 07/30/24: Hgb: 12.5 g/dl Hct: [...] ff Reviewed date:10/02/2024 01:20:13 PM Interpretation: Performing Lab:[facility], [address] [place] [phone] Notes/Report: White Blood Count 8.6 4.8-10.8 X10*3/uL [...] Phlebotomy Reviewed date:10/02/2024 01:20:13 PM Interpretation: Performing Lab:[facility], [address] [place] [phone] Notes/Report: THER/HGB TNP 12.0-16.0 g/dL Lab Results on file. Performed at [facility] on 10/01/24: Hgb: 12.1 g/dl Hct: [...] ff Reviewed date:12/02/2024 01:40:01 PM Interpretation: Performing Lab:[facility], [address] [place] [phone] Notes/Report: White Blood Count 8.0 4.8-10.8 X10*3/uL [...] Phlebotomy Reviewed date:12/02/2024 01:40:01 PM Interpretation: Performing Lab:[facility], [address] [place] [phone] Notes/Report: THER/HGB TNP 12.0-16.0 g/dL Lab Results on file. Performed at [facility] on 12/02/24: Hgb: 12.1 g/dl Hct: [...] ff Reviewed date:02/09/2025 07:31:57 AM Interpretation: Performing Lab:[facility], [address] [place] [phone] Notes/Report: White Blood Count 7.1 4.8-10.8 X10*3/uL [...] Phlebotomy Reviewed date:02/09/2025 07:31:57 AM Interpretation: Performing Lab:[facility], [address] [place] [phone] Notes/Report: THER/HGB TNP 12.0-16.0 g/dL Lab Results on file. Performed at [facility] on 02/04/25: Hgb: 11.5 g/dl Hct: [...] Problem Status W/U Status Risk Notes Problem 983880523 Obesity (E66.9) Active confirmed She has lost 22 pounds since her last visit. She is using Zepbound. Her regimen was continued unchanged. Problem Postmenopausal state (83701300) Post-menopausal (Z78.0) Active confirmed She has not had a period in several years. Problem Polycythemia vera (243131917) Polycythemia vera (D45) Active confirmed Her polycythemia is stable and her hematocrit is in the normal range. She will have the CBC done every 2 months instead of one now that she is stable. She will avoid taking iron-containin g medications. Problem 31132104 Iron deficiency (E61.1) Active confirmed She is no longer anemic and a mean cell volume is macrocytic. She'll be observed carefully. The iron will be continued. Comprehensive blood work with a ferritin has been ordered.She has been phlebotomize continuously. Close observation will occur and. Treatment used if necessary. Problem 868646263 Raynaud's syndrome without gangrene (I73.00) Active confirmed No further episodes of Raynaud's syndrome have occurred since her last visit. Problem 79906169 Tobacco dependence (F17.200) Active confirmed She continues to smoke and I have made her aware of the health consequences doing so. I have referred her to the smoking cessation program at [facility]. Problem 499813484 Erythrocytosis (D75.1) Active confirmed She will continue the phlebotomy if needed. At this time her hematocrit and hemoglobin are normal. Currently, the increased red cell mass is well controlled. Problem Macrocytic anemia (29244680) Macrocytic anemia (D53.9) Active confirmed Her mean cell volume remains slightly elevated. Her hematocrit varies between 34 and 36. Phlebotomy has not been necessary recently. 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 There was no sign of metastatic disease or recurrence today. Her anastrozole was continued. Problem 334308572 Lobular carcinoma of left breast, stage 1 [...] Provider Diagnosis Rajinder Guerrero III, MD [address] [place] [address] [place] [address] 04/18/2024 Rajinder Guerrero Iron deficiency E61. 1 ; Polycythemia vera D45 ; Celiac disease K90.0 ; Tobacco dependence F17.200 ; Raynaud's syndrome without gangrene I73.00 ; Malignant neoplasm of upper-outer quadrant of left female breast, 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 and Morbid obesity E66.01 Rajinder Guerrero III, MD [address] [place] [address] [place] [address] 10/17/2024 Rajinder Guerrero Iron deficiency E61. 1 ; Polycythemia vera D45 ; Tobacco dependence F17.200 ; Malignant neoplasm of upper-outer quadrant of left female breast, 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 and Morbid obesity E66.01 Rajinder Guerrero III, MD [address] [place] [address] [place] [address] 02/21/2025 Rajinder Guerrero Iron deficiency E61. 1 ; Polycythemia vera D45 ; Obesity E66.9 ; Macrocytic anemia D53.9 ; Tobacco dependence F17.200 ; Raynaud's syndrome without gangrene I73.00 and Malignant neoplasm of upper-outer quadrant of left female breast, 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 Rajinder Guerrero III, MD [address] [place] [address] [place] [address] 12/10/2024 Rajinder Guerrero Assessments Encounter Date Diagnosis [...] her to the smoking cessation program at [facility]. 02/21/2025 Obesity (ICD-10 - E66.9) She has lost 22 pounds since her last visit. She is using Zepbound. Her regimen was continued unchanged. 04/18/2024 Tobacco dependence (ICD-10 - F17.200) She continues to smoke and I have made her aware of the health consequences doing so. I have referred her to the smoking cessation program at [facility]. 10/17/2024 Malignant neoplasm of upper-outer quadrant [...] her to the smoking cessation program at [facility]. 04/18/2024 Malignant neoplasm of upper-outer quadrant [...] Provider Name:Rajinder Guerrero , 06/23/2025 09:45:00 AM, [address] [place] [address] DR, [facility], [place], [address], Insurance Providers Payer Name Payer Address Payer Phone Subscriber Number Group Number Insured Name Patient Relationship to Insured Coverage Start Date Coverage End Date [employer] [address] [place] [phone] [id number] Luiz Larisa Self - patient is the insured MEDICARE NGS [address] [place] [address] [phone] [id number] SusanLarisa villalobos Self - patient is the insured Medical (General) History Medical History History ICD Code history of iron deficiency celiac disease bunion left foot history of herpes zoster erythrocytosis episode of Raynaud's syndrome October invasive lobular carcinoma, l eft breast,ER+IN+Her-,8mm,N0 Left breast cancer in 2018, Gallbladder surgery in the past June 2017 invasive lobular carcinoma, l eft breast,ER+IN+Her-,8mm Surgical History Surgery Date(Month/Year) Gallbladder surgery Cholecystectomy 09/2022 drainage tonsillar abscess 12/2018 left breast lumpectomy,SN, invasive lobu lar carcinoma 06/2017 Hospitalization History Reason Date(Month/Year) No history tonsilitis 09/2021
== END 2025-03-12 13:58 | disposition home or self-care (01) ==
LOC: HO.HBS 13:05
PROVIDERS: PCP Internal Medicine; Visit Provider Nurse Practitioner
DX: E66.812 Obesity, class 2 (principal); Z68.36 Body mass index [BMI] 36.0-36.9, adult; M17.0 Bilateral primary osteoarthritis of knee; M25.562 Pain in left knee
CPT/HCPCS: 99214; G2211

== ENCOUNTER 2025-03-20 09:26 | Inpatient (IN) | payer MEDICARE, SELFPAY ==
[2025-03-11 06:37] LABS: MANUAL DIFF FLAG NO
[2025-03-11 07:18] LABS: Hematocrit 36.4 % (37.0-47.0); Hemoglobin 11.8 g/dl (12.0-16.0); Imm Gran Abs Auto 0.01 X10*3/uL (0.00-0.03); Imm Gran Pct Auto 0.2 % (0.0-0.4); Lymphocytes Absolute Auto 1.0 X10*3/uL (1.2-4.9); Mean Corpuscular HGB Conc 32.4 g/dl (31.0-35.0); Mean Corpuscular Hemoglobin 33.2 pg (27.0-33.0); Mean Corpuscular Volume 102.5 fL (80.0-98.0); NRBC Abs Auto 0.000 X10*3/uL (0.0-0.012); NRBC Pct Auto 0.0 /100WBC (0.0-0.2); Platelet Count 285 X10*3/uL (160-400); Red Blood Count 3.55 X10*6/uL (4.20-5.50); White Blood Count 6.3 X10*3/uL (4.8-10.8)
[2025-03-11 07:46] LABS: INTERNATIONAL NORM RATIO 1.0 (0.9-1.1); Prothrombin Time 11.7 SEC (11.2-13.5)
[2025-03-11 07:49] LABS: Partial Thromboplastin Time 30.7 SEC (26.7-34.1)
[2025-03-11 07:50] LABS: Alanine Aminotransferase 30 U/L (0-31); Albumin Level 4.5 g/dL (3.5-5.0); Alkaline Phosphatase 67 U/L (39-117); Anion Gap 12 (12-20); Aspartate Amino Transferase 27 U/L (5-31); Blood Urea Nitrogen 21 mg/dL (9-16); Calcium 10.0 mg/dL (8.4-10.2); Carbon Dioxide 26 mmol/L (22-29); Chloride 108 mmol/L (96-108); Cholesterol 124 mg/dL (<200); Estimated Glomerular Filt Rate 58; HDL Cholesterol 48 mg/dL (>40); Potassium 4.5 mmol/L (3.3-5.1); Sodium 141 mmol/L (135-145); Total Protein 7.4 g/dL (6.5-8.0); Triglycerides 73 mg/dL (<150)
[2025-03-17 09:41] VITALS: BMI 35.4
--- NOTE | 2025-03-17 12:04 | HO.ANESPROP2 ---
Documented by User: Brooklynn Biswas NP 03/17/25 12:07 HPI - Anesthesia Eval Consult details Narrative: 70yo F for Gastrectomy Sleeve,EGD,possible Diaphragmatic Hernia,possible Ventral Hernia,possible Open PMFSH Active Problems Active Problems: All Active Problems Osteoarthritis of knees, bilateral (Acute) Left knee pain (Acute) Knee pain (Acute) Back pain (Acute) S/P laparoscopic cholecystectomy (Acute) Acute cholecystitis due to biliary calculus (Acute) Peritonsillar cellulitis (Acute) Peritonsillar cellulitis (Acute) BMI 34.0-34.9,adult (Acute) Obesity (Acute) Cardiomegaly (Acute) Abnormal EKG (Acute) GERD (gastroesophageal reflux disease) (Acute) Anxiety (Acute) Sleep apnea treated with continuous positive airway pressure (CPAP) (Acute) Morbid obesity (Acute) Hypercholesterolemia (Acute) Hypertension (Acute) Past Medical History Medical History Back pain BMI 34.0-34.9,adult Obesity Cardiomegaly Abnormal EKG GERD (gastroesophageal reflux disease) Anxiety Sleep apnea treated with continuous positive airway pressure (CPAP) Morbid obesity Polycythemia Orthostatic dizziness Hypercholesterolemia Hypertension History of left breast cancer Family History Family History Mother Hypertension High cholesterol Angina at rest Father Hypertension High cholesterol Alcoholic Son No problems noted. Son Hx of sleep apnea Family history of problems with anesthesia: No Surgical History Surgical History History of esophagogastroduodenoscopy (EGD) Hx of colonoscopy Hx of bladder endoscopy Hx laparoscopic cholecystectomy (09/20/22) History of lymph node excision History of lumpectomy of left breast History of Problems with Anesthesia: No Social History Social History Household Members: None Housing: House Are you a primary careers counsellor to a significant other at home: No Do you presently have visiting nurse or other home services: No Alcohol intake: current Alcohol intake frequency: does not drink Patient Tobacco Use Status: Current everyday Tobacco user Tobacco use type: Cigarette Cigarettes Per Day: 1 Years Smoked: 40 Second Hand Smoke Exposure: No service: No Current occupational status: employed Meds Allergies Allergy/AdvReac Type Severity Reaction Status Date / Time oxycodone (From OxyContin) Allergy Severe severe Verified 03/17/25 09:38 nausea environmental allergies Allergy Intermediate Itchy Eyes Verified 03/17/25 09:14 egg (Egg) AdvReac Intermediate Gastrointestinal Verified 03/12/25 13:29 Upset Home Medications ?Medication ?Instructions ?Recorded ?Confirmed ?Last Taken ?Type lorazepam 1 mg tablet 1 mg PO DAILY PRN Anxiety 03/24/20 03/17/25 03/11/25 History losartan 100 1 tab PO DAILY 10/06/21 03/17/25 03/11/25 History mg-hydrochlorothiazide 25 mg tablet pravastatin 80 mg tablet 1 tab PO DAILY 10/06/21 03/17/25 09/19/22 History cholecalciferol (vitamin D3) 50 50 mcg PO DAILY 09/20/22 03/17/25 09/19/22 History mcg (2,000 unit) tablet cyanocobalamin (vitamin B-12) 1,000 mcg PO DAILY 02/20/23 03/17/25 Unknown History 1,000 mcg tablet (Vitamin B-12) albuterol sulfate 90 mcg/actuation 2 puff inhalation QID 03/17/25 03/17/25 Unknown History aerosol inhaler Exam Height,Weight and Vital Signs: Height 5 ft 5 in Weight 96.615 kg Pertinent Lab Results Pertinent Lab Results: Laboratory Tests 03/11/25 03/11/25 06:30 06:36 WBC 6.3 RBC 3.55 L Hgb 11.8 L Hct 36.4 L MCV 102.5 H MCH 33.2 H MCHC 32.4 RDW 13.5 Plt Count 285 MPV 10.2 Immature Gran % (Auto) 0.2 Neut % (Auto) 72.3 Lymph % (Auto) 15.7 L [place] % (Auto) 8.4 Eos % (Auto) 2.4 Baso % (Auto) 1.0 Lymph # (Auto) 1.0 L [place] # (Auto) 0.5 Eos # (Auto) 0.2 Baso # (Auto) 0.1 Abs Immat Gran (auto) 0.01 Absolute Neuts (auto) 4.6 Absolute Nucleated RBC 0.000 Nucleated RBC % (auto) 0.0 PT 11.7 INR 1.0 APTT 30.7 Sodium 141 Potassium 4.5 Chloride 108 Carbon Dioxide 26 Anion Gap 12 BUN 21 H Creatinine 0.95 Estim Creat Clear Calc TNP Estimated GFR 58 Random Glucose 105 Estimat Average Glucose 100 Hemoglobin A1c % 5.1 Insulin Level 11 Calcium 10.0 D Total Bilirubin 1.0 AST 27 ALT 30 Alkaline Phosphatase 67 C-Reactive Protein 0.48 Total Protein 7.4 Albumin 4.5 Triglycerides 73 Cholesterol 124 LDL Cholesterol, Calc 62 HDL Cholesterol 48 TSH 1.53 Blood Type A Positive Antibody Screen NEGATIVE Narrative Narrative: EKG 12/2024 Vent. Rate : 53 BPM Atrial Rate : 53 BPM P-R Int : 198 ms QRS Dur : 90 ms QT Int : 442 ms P-R-T Axes : 64 2 22 degrees QTcB Int : 414 ms Sinus bradycardia Low voltage QRS Cannot rule out Anterior infarct , age undetermined Abnormal ECG No previous ECGs available Stress ECHO 01/2025 Conclusion : Stress echo is non diagnostic for myocardial ischemia. Patient develops significantly elevated RVSP with exertion. [facility] correlation is suggested and may consider CPET level 3 testing CPET Stress ECHO Conclusion : [place] stress echo is negative for ischemia at achieved HR. ECHO 02/2025 Conclusions: - The left ventricular systolic function is hyperdynamic. The visually estimated ejection fraction is >70%. - Possible basal inferior hypokinesis, but difficult to assess. - Evidence suggests grade II (moderate) diastolic dysfunction. - No obvious valvular pathology seen on this study. Assessment and Plan Assessment Anesthesia Assessment: Chart Reviewed Final Anesthetic Review Family History of Problems with Anesthesia: No History of Problems with Anesthesia: No Documented by User: Tavia Cotto MD 03/20/25 09:16 [facility] Past Medical History Medical History Back pain BMI 34.0-34.9,adult Obesity Cardiomegaly Abnormal EKG GERD (gastroesophageal reflux disease) Anxiety Sleep apnea treated with continuous positive airway pressure (CPAP) Morbid obesity Polycythemia Orthostatic dizziness Hypercholesterolemia Hypertension History of left breast cancer Family History Family History Mother Hypertension High cholesterol Angina at rest Father Hypertension High cholesterol Alcoholic Son No problems noted. Son Hx of sleep apnea Surgical History Surgical History History of esophagogastroduodenoscopy (EGD) Hx of colonoscopy Hx of bladder endoscopy Hx laparoscopic cholecystectomy (09/20/22) History of lymph node excision History of lumpectomy of left breast Social History Social History Household Members: None Housing: House Are you a primary careers counsellor to a significant other at home: No Do you presently have visiting nurse or other home services: No Alcohol intake: current Alcohol intake frequency: does not drink Patient Tobacco Use Status: Current everyday Tobacco user Tobacco use type: Cigarette Cigarettes Per Day: 1 Years Smoked: 40 Second Hand Smoke Exposure: No service: No Current occupational status: employed Meds Allergies Allergy/AdvReac Type Severity Reaction Status Date / Time oxycodone (From OxyContin) Allergy Severe severe Verified 03/17/25 09:38 nausea environmental allergies Allergy Intermediate Itchy Eyes Verified 03/17/25 09:14 egg (Egg) AdvReac Intermediate Gastrointestinal Verified 03/12/25 13:29 Upset Home Medications ?Medication ?Instructions ?Recorded ?Confirmed ?Last Taken ?Type lorazepam 1 mg tablet 1 mg PO DAILY PRN Anxiety 03/24/20 03/17/25 03/11/25 History losartan 100 1 tab PO DAILY 10/06/21 03/17/25 03/11/25 History mg-hydrochlorothiazide 25 mg tablet pravastatin 80 mg tablet 1 tab PO DAILY 10/06/21 03/17/25 09/19/22 History cholecalciferol (vitamin D3) 50 50 mcg PO DAILY 09/20/22 03/17/25 09/19/22 History mcg (2,000 unit) tablet cyanocobalamin (vitamin B-12) 1,000 mcg PO DAILY 02/20/23 03/17/25 Unknown History 1,000 mcg tablet (Vitamin B-12) albuterol sulfate 90 mcg/actuation 2 puff inhalation QID 03/17/25 03/17/25 Unknown History aerosol inhaler Exam Airway Mallampati Class: II TM Dist: >3cm Neck ROM: Full Heart: rrr Lungs: cta Assessment and Plan Assessment Anesthesia Assessment: Anesthesia Plan Discussed Final Anesthetic Review NPO: Yes ASA Class: III Final Preanesthetic Review: No Changes in Pt Med Stat, Meds/Allgs Chart Reviewed, Consent Obtained/Reviewed and Anes Risks/Benef Reviewed Patient Risk: Intermediate Procedure Risk: Intermediate Anesthetic Plan Anesthetic Plan: GA and Agree w/ Assess. and Plan Disposition: Standard PACU
[2025-03-20] VITALS (10 sets, daily range): BP systolic 113–165; BP diastolic 56–73; PULSE 68–78; RESP 12–26; TEMP 36.4–36.9; O2SAT 92–99; BMI 35.8
--- NOTE | 2025-03-20 09:50 | PHA.MEDREC ---
Pharmacy Consult ? Medication Reconciliation Pharmacy has completed the medication reconciliation. Reviewed med rec done by nursing, confirmed gaps with pharmacy claims, pt filled the ondansetron, pantoprazole, and sucralfate prescribed by Dr Rowland last month.
[2025-03-20] MEDS: Lactated Ringers 1,000 ML 999 ML IV (10:11)
[2025-03-20] MEDS: Aprepitant 32 MG/4.4 ML VIAL IVPUSH (10:11)
--- NOTE | 2025-03-20 10:47 | P.BOP_ITS ---
Brief Operative Note Date of Service: 03/20/25 Pre-op diagnosis: Severe obesity with comorbidities (see below) Post-op diagnosis: same (& congenital abdominal adhesions) Procedure: INITIAL PATIENT BMI ON PRESENTATION AT OUR OFFICE: 41.5 kg/m2 LAST BMI BEFORE SURGERY: 34.1 kg/m2 COMORBIDITIES: Sleep apnea on CPAP, hypertension, hyperlipidemia, anxiety, GERD, breast cancer, liver steatosis, liver fibrosis, grade II diastolic dysfunction ?The patient presented to the Weight Management Program with significant obesity that was negatively impacting the patient's comorbidities as listed above.? The program is a phased program with a special focus on preoperative medical weight management to promote substantial weight loss and prepare the patients for the second phase of the program: bariatric surgery. The patient participated in an intensive weekly lifestyle ?intervention and exercise program during which the patient ?has lost between the initial office visit and the last preoperative visit 28.2 lbs, or 11.45% of initial actual body weight. It was deemed appropriate for the patient to now have bariatric surgery. In light of the current Covid-19 pandemic and the well documented strong association of obesity and increased risk of worse outcomes if infected with Covid-19 (REFERENCES: https://pubmed.ncbi.nlm.nih.gov/28291871/ ,? https://pubmed.ncbi.nlm.nih.gov/10088411/ ), any delay in undergoing bariatric surgery may lead to the patient's worsening health condition and increased?risk of more severe Covid-19 disease if infected. In addition a recent?study from [facility] published in [facility] on 04/12/2021 ([email or web address]) found that, among patients with obesity, substantial weight loss achieved with surgery was associated with improved outcomes of COVID-19 infection. The findings suggest that obesity can be a modifiable risk factor for the severity of COVID-19 infection. In addition, the patient met the BMI-criteria for bariatric surgery based on the BMI on initial presentation. The patient should not be penalized for achieving such weight loss because ?it is not sustainable long-term without surgical intervention and it was achieved in preparation for bariatric surgery ?under my direction and based on my published research ([email or web address] and? https://www.soard.org/article/[email or web address](37)80730-X/pdf ) ?that a 10% preoperative weight loss improves long-term weight loss after surgery and reduces perioperative complications.? Insurance carriers such as [facility] have endorsed my recommendations ?and have included in their policies criteria to include a 10% preoperative weight loss requirement. PROCEDURE: Esophago-gastroscopy, laparoscopic lysis of adhesions, laparoscopic sleeve gastrectomy and laparoscopic gastropexy INDICATIONS: This is a 70 year-old female who was electively scheduled for laparoscopic, possibly open sleeve gastrectomy. The risks and complications of the procedure were discussed with the patient in advance, particularly the possibility of ; pulmonary embolism; staple line leak; bleeding; GERD; cardiac, pulmonary, or renal complications; as well as long-term problems such as insufficient weight loss, vitamin deficiency, strictures, or ulcers. The patient understood all the risks, and was in agreement to proceed with surgery. DESCRIPTION OF PROCEDURE: After informed consent was obtained from the patient, the patient was given preoperative antibiotics, and was transferred to the operating room. After successful induction of general anesthesia, pneumatic compression devices were placed on both lower extremities. An upper endoscopy was performed next. The oropharynx and esophagus appeared to be within normal limits. There was no diaphragmatic hernia present. The stomach was entered. Then after all fluid and air were suctioned and the stomach was fully decompressed, the scope was withdrawn and secured in the mid esophagus. The patient was then prepped and draped in the usual sterile manner, and abdominal access was established at the right upper quadrant with the Willian technique. A 12 mm blunt port was inserted, and the abdomen was insufflated with CO2 to a pressure of 15 mmHg. Under direct visualization, additional ports were placed, specifically two 5 mm Versi-step ports to the left upper quadrant, and a 5 mm Versi-Step port to the right upper quadrant. 1% lidocaine plain was used to infiltrate all port sites as well as all fascia defects. There were adhesions in the abdomen from previous hysterectomy involving the omentum and the anterior abdominal wall. Those were left intact as they did not interfere with our procedure. Following that, the patient was placed in a steep reverse Trendelenburg position. An additional 5 mm port was placed to the right flank for the Mediflex retractor that was used to retract the left lobe of the liver. The gastro-esophageal fat pad was opened with the ultrasonic device (Thunderbeat, Olympus) and the anterior esophagus and hiatus were exposed. The angle of His was opened with the ultrasonic device the fundus of the stomach from any diaphragmatic and splenic attachments. I then opened the gastrocolic ligament between the transverse colon and the greater curvature of the stomach with the ultrasonic device to enter the lesser sac and facilitate the ligation of the short gastric vessels. I started at a mid-point along the greater curvature and using the Thunderbeat, all short gastric vessels were divided all the way to the angle of His until the left lisa was completely dissected at its entirety. I then divided the gastro-colic ligament distally to a distance of about 3-4 cm proximal to the pylorus. There were extensive retrogastric congenital adhesions that were lysed completely with the Thunderbeat. The stomach was then divided transversely with four Endo LALO-45 purple and two LALO-60 articulating purple loads using the SIGNIA stapler and loads. Every effort was made that the gastric sleeve had a tubular shape and an even caliber throughout. Once the sleeve resection was completed, the staple line of the gastric sleeve was reinforced with Hemoclips. The resected stomach was retrieved without difficulty from the Willian port. A gastropexy was then performed in order to prevent postoperative GERD and partial gastric volvulus. Several interrupted 2.0 Surgidac sutures were placed between the sleeve's staple line and the previously divided greater omentum and gastro-colic ligament using the Endo-Stitch device. ?An upper endoscopy was performed. There was no narrowing at the GE junction. The scope was easily advanced all the way to the pylorus which was clearly visualized. There was no narrowing anywhere and the sleeve's caliber was even throughout. The sleeve's staple line was inspected and there was no evidence of ischemia, bleeding or dehiscence. At that point the gastroscope was withdrawn from the patient?s mouth while we were decompressing the bowel and the stomach from any remaining air. I looked into the lesser sac to see how the sleeve was situating and it was situating well. There was no bleeding from the staple line, spleen, or short gastric vessels. The Mediflex retractor was removed, and the undersurface of the liver was inspected and there was no bleeding. The patient was placed in supine position. I closed the fascial defect of the 12 mm port site with a figure of eight #1 Polysorb suture. Then 30cc Ropivacaine plain with 10 mg of Dexamethasone were used to infiltrate the fascial closure as well as all skin incisions. At this point, the abdomen was deflated, all ports were removed under direct vision, and no bleeding was noted from any of the port sites. The skin incisions were irrigated with saline and were closed with 4-0 absorbable monofilament sutures. Steri-Strips and OpSites were used to cover all incisions. The patient was extubated and was transferred in stable condition to the recovery room for further care. I was present and performed all manzo parts of the procedure. Ms. Thomason was the assistant casino shift manager and Ms Georges the second. There were no residents to assist with this case. Da Santana MD, PhD, FACS Surgeon: David Santana MD Anesthesia: GETA, local and other (TAP block) Was an Tennis Player used for this Procedure?: No Tennis Player: Jonelle Thomason Estimated blood loss (mL): 10 IV fluids (mL): 2,000 Urine output (mL): 0 (No Maynard to record output) Pathology: other (1) Stomach, 2) Gastro-esophageal fat pad) Condition: stable Disposition: PACU
--- NOTE | 2025-03-20 10:47 | MHC.SHP ---
Pre-Procedural Eval Section A - 24 Hr Update-Section A only Date of Service: 03/20/25 The patient is an INPATIENT: Yes The patient has been examined within 24 hours of the surgical procedure. The History & Physical has been completed within 30 days and I have reviewed it.: Yes Section B - Complete if H&P > 30 days Chief Complaint: obesity Relevant Family History (Specify if Yes): No Relevant Social History: None Present Medications: None Medical History: No relevant PMH History of Previous Operations: No relevant previous surgery Allergies: Allergies Allergy/AdvReac Type Severity Reaction Status Date / Time oxycodone (From OxyContin) Allergy Severe severe Verified 03/20/25 09:49 nausea environmental allergies Allergy Intermediate Itchy Eyes Verified 03/20/25 09:49 egg (Egg) AdvReac Intermediate Gastrointestinal Verified 03/20/25 09:49 Upset Review of Systems Sugical H&P ROS: Negative: Constitution, Cardiovascular, Respiratory, Neurological, Psychiatric, Hem-Onc, Allergic/Immunologic, Gastrointestinal, Genitourinary, Musculoskeletal, Integumentary, Endocrine and Eyes/Ears/Nose/Throat Exam Surgical H&P Exam: Normal: HEENT, Normal: Heart, Normal: Lungs, Normal: Extremities, Normal: Abdomen, Normal: Skin and Normal: Neurological Plan Diagnosis/Plan: Unchanged I have reviewed the history and physical and performed a pertinent physical examination on my patient. No changes have occurred unless specified. Time Spent With Patient Time: Total time managing care of this patient today ____ minutes.
--- NOTE | 2025-03-20 10:54 | PM.PNGS ---
Subjective Subjective Date of Service: 03/21/25 Interval history: Feels well. Mild incisional pain. She is tolerating phase 1 bariatric diet Physical Exam Vital Signs: Vital Signs: Last Vital Signs Temp 98.0 F 03/20/25 10:00 Pulse 71 03/20/25 10:00 Resp 15 03/20/25 10:00 BP 133/63 03/20/25 10:00 Pulse Ox 95 03/20/25 10:00 O2 Del Method Room Air 03/20/25 10:00 BMI result Body Mass Index 35.4 GI: Inspection: Yes normal to inspection, Yes incision (clean, dry and intact) and Yes obesity Palpation (GI): Soft to palpation Extrem: Right lower extremity: normal to inspection (no calf tenderness) Left lower extremity: normal to inspection (no calf tenderness) Objective Data Active Medications Haloperidol Lactate (Haloperidol Lactate 5 Mg/Ml Vial) 1 mg IVPUSH ONCE PRN PRN Reason: intractable nausea Stop: 03/20/25 15:16 Hydromorphone HCl (Hydromorphone Hcl 0.5 Mg/0.5 Ml Syringe) 0.25 mg IVPUSH Q5M PRN PRN Reason: Pain, Moderate to Severe (Pain Scale 4-10) Stop: 03/20/25 15:16 Lactated Ringer's (Lr) 1,000 mls @ 100 mls/hr IVCONT .Q10H [facility] Stop: 03/20/25 13:29 Lactated Ringer's (Lr) 1,000 mls @ 999 mls/hr IV .Q1H1M [facility] Stop: 03/20/25 11:30 Last Admin: 03/20/25 10:11 Dose: 999 mls/hr Documented By: MABEL Naloxone HCl (Naloxone Hcl 0.4 Mg/Ml Vial) 0.04 mg IVPUSH Q5M PRN PRN Reason: Excessive sedation or RR < 8 Ondansetron HCl (Ondansetron Hcl 4 Mg/2 Ml Vial) 4 mg IVPUSH ONCE PRN PRN Reason: Nausea and Vomiting Stop: 03/20/25 15:16 Labs 03/21/25 05:24 03/21/25 05:24 Procedures Date of Service Date of Service: 03/21/25 Progress Note: A&P Assessment and plan (1) Obesity: Status: Acute Assessment and Plan: s/p laparoscopic sleeve gastrectomy, lysis of adhesions and gastropexy Doing well Will check am labs and if OK the patient will be discharged home (2) BMI 34.0-34.9,adult: Status: Acute (3) Hypertension: Status: Acute (4) Anxiety: Status: Acute (5) Hypercholesterolemia: Status: Acute (6) GERD (gastroesophageal reflux disease): Status: Acute (7) Osteoarthritis of knees, bilateral: Status: Acute (8) Sleep apnea treated with continuous positive airway pressure (CPAP): Status: Acute (9) Steatosis, liver: Status: Acute (10) Liver fibrosis: Status: Acute (11) S/P laparoscopic sleeve gastrectomy: Status: Acute (12) Congenital intra-abdominal adhesions: Status: Acute Time Spent With Patient Time: Total time managing care of this patient today ____ minutes. Quality Stroke Does the patient have a stroke diagnosis?: No VTE Prior VTE?: No VTE Risk Level:: Surgical - moderate VTE Device Contraindication: N/A - Device Ordered VTE Drug Contraindication: Treatment Not Indicated
--- NOTE | 2025-03-20 14:07 | PM.DS ---
DS: Providers Provider Date of Service: 03/20/25 Date of admission: 03/20/25 09:26 Date of discharge: 03/21/25 Primary care physician: Deandra Vaughn MD DS: Diagnosis Discharge Diagnosis (1) Obesity: Status: Acute (2) BMI 34.0-34.9,adult: Status: Acute (3) Hypertension: Status: Acute (4) Anxiety: Status: Acute (5) Hypercholesterolemia: Status: Acute (6) GERD (gastroesophageal reflux disease): Status: Acute (7) Osteoarthritis of knees, bilateral: Status: Acute (8) Sleep apnea treated with continuous positive airway pressure (CPAP): Status: Acute (9) Steatosis, liver: Status: Acute (10) Liver fibrosis: Status: Acute (11) S/P laparoscopic sleeve gastrectomy: Status: Acute (12) Congenital intra-abdominal adhesions: Status: Acute DS: Summary Hospital Course Hospital Course: ADMITTING DIAGNOSIS: morbid obesity DISCHARGE DIAGNOSIS: same, s/p laparoscopic sleeve gastrectomy and gastropexy PAST HISTORY:? Medical History GERD (gastroesophageal reflux disease) Anxiety Sleep apnea treated with continuous positive airway pressure (CPAP) Morbid obesity Polycythemia Orthostatic dizziness Hypercholesterolemia Hypertension History of left breast cancer Surgical History Hx of colonoscopy Hx of bladder endoscopy Hx laparoscopic cholecystectomy (09/20/22) History of lymph node excision History of lumpectomy of left breast PROCEDURE: upper endoscopy, laparoscopic sleeve gastrectomy and gastropexy DISCHARGE SUMMARY: History of Present Illness: The patient is a?70 year-old woman with a BMI of 35.4 kg/m2 and associated co-morbidities as described above. The patient had extensive work-up, lost 36.2 lbs preoperatively and was electively scheduled for laparoscopic, possible open sleeve gastrectomy and gastropexy. Risks and complications of the surgery were discussed with the patient in advance, particularly the possibility of , pulmonary embolism, anastomotic leak, bleeding, bowel injury, GERD, cardiac, renal or pulmonary complications. The patient understood all the risks and was in agreement with the surgical plan. Hospital Course: The patient underwent an uneventful laparoscopic sleeve gastrectomy with gastropexy on the day of admission. Postoperatively, the patient was transferred to the surgical floor. The patient received IV Acetaminophen and IV dilaudid for pain control. Patient was started on bariatric phase 1 diet POD #0. On postoperative day one, the patient was feeling well without nausea, vomiting, fevers, or tachycardia. The patient had some mild incisional pain and the abdomen was soft.? On the morning of postoperative day one, the patient was continued on 1 ounce of water or ice every half hour. During the day, the patient did fairly well, having some incisional pain, but able to ambulate adequately and to tolerate liquids well. Since the patient is doing well, we decided that the patient was ready to be discharged. The patient was given instructions to follow-up with me next week and to call my office for any fever over 101, persistent abdominal pain, nausea, vomiting, GERD, symptoms of DVT such as calf tenderness, or leg swelling, or pulmonary embolism such as chest pain or shortness of breath.? The patient was also instructed to drink 40-60 ounces of liquids per day using the 1-ounce cups. The patient had been given prescriptions for Tylenol for pain, Zofran prn for nausea, and pantoprazole and carafate previously. The patient was encouraged to ambulate and use the incentive spirometer. The patient was allowed to shower, but no baths, and encouraged to stay active at home. All of these instructions were given to the patient personally. All questions were answered and the patient understood all instructions, the instructions were also given to the patient in print. Time Attestation Discharge Coordination Time (in mins): 30 Quality: Safe Use of Opioids Does Pt have an Active Cancer Diagnosis on the Problem List?: No Quality: Stroke Does the patient have a stroke diagnosis?: No Physical Exam Vital Signs: Vital Signs: Last Vital Signs Temp 98.4 F 03/20/25 13:58 Pulse 74 03/20/25 13:58 Resp 14 03/20/25 13:58 BP 128/57 L 03/20/25 13:58 Pulse Ox 99 03/20/25 13:58 O2 Del Method Simple Mask 03/20/25 13:58 O2 Flow Rate 6 03/20/25 13:58 BMI result Body Mass Index 35.4 DS: Data Data Completed and Pending Completed studies during hospitalization [Text1]: Procedures Drainage of Tonsils, Percutaneous Approach (10/06/21) Resection of Gallbladder, Percutaneous Endoscopic Approach (09/20/22) Pending studies at discharge: Pending at discharge 03/20/25 13:10 Surgical [PTH] Routine Discharge Plan Discharge Anticipated Discharge Date/Time: 03/21/25 11:00 Patient Disposition: Home, Self-Care Discharge Diagnosis: s/p laparoscopic sleeve gastrectomy with gastropexy Referrals: Deandra Vaughn MD [Primary Care Provider, Internal Medicine] - 1 Week Discharge Medications: Continued pravastatin 80 mg tablet 1 tab PO DAILY albuterol sulfate 90 mcg/actuation HFA aerosol inhaler 2 puff INHALATION QID lorazepam 1 mg tablet 1 mg PO DAILY PRN (Reason: Anxiety) pantoprazole 40 mg tablet,delayed release (DR/EC) 40 mg PO DAILY Qty: 90 0RF sucralfate 100 mg/mL suspension 10 ml PO BID Qty: 600 2RF ondansetron 4 mg tablet,disintegrating 4 mg PO Q12H Qty: 20 0RF Held losartan 50 mg tablet 50 mg PO DAILY Hold Instructions: Resume on 03/22/25. Check your blood pressure every morning as soon as you wake up and send it to Dr. Santana. Do no take the blood pressure medication if the blood pressure is below 120/70. Wait every day to hear back from Dr. Santana before you take the medication. Discontinued ibuprofen 600 mg tablet 600 mg PO TID PRN (Reason: fever or pain) Qty: 20 0RF cholecalciferol (vitamin D3) 50 mcg (2,000 unit) Tablet 50 mcg PO DAILY cyanocobalamin (vitamin B-12) [Vitamin B-12] 1,000 mcg Tablet 1,000 mcg PO DAILY Discharge Orders: Discharge Order (Routine); Ordered 03/21/25 Ordered By: David Santana Activity on Discharge: No heavy lifting Stand Alone Forms: Patient Portal Discharge page Print Language: Israeli Activity Restrictions/Additional Instructions: Discharge Instructions: You may shower the day after discharge. No tub baths, sex or returning to work until discussed at first post op appointment. No alcohol, tobacco, or illegal drug use. Continue to use incentive spirometer hourly while awake. Walk in home for 5-10 minutes every 2 hours during the first week. Wear abdominal binder with activity. Activity: limit stair climbing, no bending, no heavy lifting, no driving, no exercise, no work. No lifting > 10 lbs x6 weeks post op. No driving within 24 hours of taking narcotic pain medications. Follow all meal plan instructions from your bariatric surgeon. Do not advance diet until approved by surgeon. Review bariatric handbook and call with any questions. If you do not move your bowels in the next 2 days, please take milk of magnesia over the counter. Dressing Change/Wound Care: Your incisions are covered with waterproof dressings. You can shower with these and pat dry. Do not rub over dressings or incisions. If the area is tender, you may apply an ice pack for short intervals (no more than 20 minutes on, followed by at least 20 minutes off). Do not apply heat. Do not use creams, lotions, or topical antibiotics unless instructed to do so by your surgeon. Do not hesitate to contact the office with any questions at or concerns such as: - Temperature exceeds 101.5 F, fevers, chills - Excessive pain or swelling, abdominal pain - Unexpected reaction to medication - Excessive bleeding - Continued vomiting/nausea - Incision begins to separate - Signs of infection such as increased redness, swelling, excessive pain, heat, or drainage (light blood or clear fluid is normal) - Shortness of breath - Chest pain - Leg pain or swelling - Go to ER for any emergent symptoms General instructions: Please walk around your home every 1-2 hrs to prevent blood clots from forming in your legs. You do not need to wake from sleeping to walk. Please sleep in a bed or couch to prevent kinking at the hips and knees. Please take your incentive spirometer (your lung aircraft inspector) home with you and use it for the next few days to prevent pneumonia. Please make sure you are consuming 40-60 ounces of total fluids per day. Avoid all carbonation. The patient's medical history has been reviewed and they are considered low risk for post op DVT and therefore DVT prophylaxis is not considered necessary. Travel after surgery was reviewed. The patient has not disclosed any travel plans during the first 30 days after surgery and they have been advised that within the first 30 days after surgery any bus, plane, train or car travel over 2 hours in duration is contraindicated due to the possibility of developing blood clots from immobility. Any travel, needs to include periods of ambulation of 10 minutes in duration every 2 hours.? The patient was instructed to discuss any plans for travel during this period with their bariatric surgeon. Follow up as scheduled in 1 week in office Care Plan Goals: weight loss Health Concerns: obesity Plan of Treatment: weight loss Assessment: s/p laparoscopic sleeve gastrectomy with gastropexy Discharge Date/Time: 03/21/25 10:15
[2025-03-20 14:37] LABS: Hematocrit 37.0 % (37.0-47.0); Hemoglobin 12.1 g/dl (12.0-16.0)
[2025-03-20 14:54] LABS: Anion Gap 16 (12-20); Blood Urea Nitrogen 14 mg/dL (9-16); Calcium 9.2 mg/dL (8.4-10.2); Carbon Dioxide 20 mmol/L (22-29); Chloride 106 mmol/L (96-108); Creatinine Clr Calc Pharmacy 65.6; Estimated Glomerular Filt Rate 60; Potassium 4.6 mmol/L (3.3-5.1); Sodium 137 mmol/L (135-145)
[2025-03-20] MEDS: Lactated Ringers 1,000 ML 100 ML IVCONT (15:56)
[2025-03-21] MEDS: Lactated Ringers 1,000 ML 100 ML IVCONT (00:55)
[2025-03-21 03:06] VITALS: BP 141/66; PULSE 88; RESP 17; TEMP 36.5; O2SAT 96
[2025-03-21 05:57] LABS: Hematocrit 38.6 % (37.0-47.0); Hemoglobin 12.4 g/dl (12.0-16.0); Imm Gran Abs Auto 0.02 X10*3/uL (0.00-0.03); Imm Gran Pct Auto 0.2 % (0.0-0.4); Lymphocytes Absolute Auto 0.4 X10*3/uL (1.2-4.9); MANUAL DIFF FLAG SCAN; Mean Corpuscular HGB Conc 32.1 g/dl (31.0-35.0); Mean Corpuscular Hemoglobin 32.7 pg (27.0-33.0); Mean Corpuscular Volume 101.8 fL (80.0-98.0); NRBC Abs Auto 0.000 X10*3/uL (0.0-0.012); NRBC Pct Auto 0.0 /100WBC (0.0-0.2); Platelet Count 253 X10*3/uL (160-400); Red Blood Count 3.79 X10*6/uL (4.20-5.50); SCAN SMEAR FLAG 1; White Blood Count 9.4 X10*3/uL (4.8-10.8)
[2025-03-21 06:10] LABS: Anion Gap 19 (12-20); Blood Urea Nitrogen 15 mg/dL (9-16); Calcium 9.9 mg/dL (8.4-10.2); Carbon Dioxide 20 mmol/L (22-29); Chloride 104 mmol/L (96-108); Creatinine Clr Calc Pharmacy 63.8; Estimated Glomerular Filt Rate 58; Potassium 4.8 mmol/L (3.3-5.1); Sodium 138 mmol/L (135-145)
[2025-03-21 08:00] VITALS: BP 131/62; PULSE 84; RESP 18; TEMP 36.8; O2SAT 92
--- NOTE | 2025-03-21 08:02 | PC.NURSE ---
Abd lap sites dressings changed
--- NOTE | 2025-03-21 08:45 | HO.POSTANES ---
Post Anesthesia Evaluation Post Anesthesia Evaluation Date of Service: 03/21/25 Vital Signs: Vital Signs Temp Pulse Resp BP Pulse Ox O2 Del Method 03/21/25 08:00 98.2 F 84 18 131/62 92 Room Air 03/21/25 03:06 97.7 F 88 17 141/66 H 96 Room Air Anesthesia: General Mental Status: Awake Pain Control: Satisfactory Nausea/Vomiting: None Hydration: Adequate Anesthesia-Related Issues: No Anes. Related Issues
[2025-03-21] MEDS: Albuterol Sulfate 90 MCG 8 GM INHALER 2 PUFF INHALE (08:59)
[2025-03-21 09:02] VITALS: PULSE 78; RESP 15; O2SAT 96
--- NOTE | 2025-03-21 11:07 | MHC.CM.PN ---
pt dcd home self care prior to being seen by cm
== END 2025-03-21 10:15 | disposition home or self-care (01) | DRG 620 ==
LOC: HO.SSSA 14:04 → HO.S3 14:46
PROVIDERS: Nurse Practitioner; Admitting Provider Surgery; PCP Internal Medicine; Visit Provider Surgery
PROC: 0DB64Z3 Excision of Stomach, Percutaneous Endoscopic Approach, Vertical (ICD-10-PCS; CPT 43845; principal; 2025-03-20 11:20)
DX: E66.01 Morbid (severe) obesity due to excess calories (principal); Q43.3 Congenital malformations of intestinal fixation; F17.210 Nicotine dependence, cigarettes, uncomplicated; Z71.6 Tobacco abuse counseling; G47.33 Obstructive sleep apnea (adult) (pediatric); E78.5 Hyperlipidemia, unspecified; K74.00 Hepatic fibrosis, unspecified; K76.0 Fatty (change of) liver, not elsewhere classified; I11.9 Hypertensive heart disease without heart failure; Z68.34 Body mass index [BMI] 34.0-34.9, adult; Z79.899 Other long term (current) drug therapy
CPT/HCPCS: 36415; 80048; 80053; 80061; 83036; 83525; 84443; 85014; 85018; 85025; 85610; 85730; 86140; 86850; 86900; 86901; 88304; 88307; 88342; 94664; A4649; C9145; J0131; J0690; J1100; J1171; J1308; J2003; J2250; J2371; J2405; J2704; J2795; J3010; J7120

== ENCOUNTER → 2025-03-20 09:26 | Outpatient (BNV) | payer MEDICARE, SELFPAY | PROVIDERS: Admitting Provider Surgery; PCP Internal Medicine; Visit Provider Surgery | DX: E66.811 Obesity, class 1 (principal); Z68.34 Body mass index [BMI] 34.0-34.9, adult; Z98.84 Bariatric surgery status | CPT/HCPCS: 99024; 99499 ==

== ENCOUNTER 2025-03-26 | Outpatient (REF) | payer MEDICARE, SELFPAY ==
--- OUTSIDE RECORDS SUMMARY | 2024-03-25 13:15 | XMS_ITS ---
Author Organization Rajinder Guerrero III, MD Address [address] [place] [address] [place] [address] Care Team Providers Care Cookie Padder Name Role Phone Roderick TAPIA, Deandra Primary Care Provider Dr. Rajinder Camargo III Unavailable [phone] REASON FOR VISIT Follow-up Social History Sex Assigned At : Social History Observation Description Sex Assigned At Female Encounters Encounter Location Date Provider Diagnosis Rajinder Guerrero III, MD [address] [place] [address] [facility] [place] [address] 03/25/2024 Rajinder Guerrero Plan Of Treatment Next Appt Details Provider Name:Rajinder Guerrero , 06/23/2025 09:45:00 AM, [address] [place] [address] [place], [address], Progress Notes * Larisa DEEDOB:1955 (70 yo F)Acc No.[id number]:03/25/2024 Progress Notes Patient: Larisa BATES Provider: Oliva Guerrero MD :1955 A ge:69 Y S ex:Female Date:03/25/2024 Address:[address] [place], [place] [address] [id number] Pcp:Deandra Vaughn MD Subjective: * Chief Complaints: [...] Date: 05/26/2023 Generated for Jannie stover/Baljit/Annalise on: 0 05/08/2025 12:26 PM EST
--- OUTSIDE RECORDS SUMMARY | 2024-04-18 04:00 | XMS_ITS ---
Author Organization Rajinder Guerrero III, MD Address [address] [place] [address] Care Team Providers Care Shake Packer Name Role Phone Roderick TAPIA, [facility] Primary Care Provider Dr. Rajinder Camargo III Unavailable [phone] Allergies Allergen (clinical drug ingredient) Drug/Non Drug [...] Date Provider Diagnosis Rajinder Guerrero III, MD [address] [place] [address] [place] [address] 04/18/2024 Rajinder Guerrero Iron deficiency E61. 1 [...] her to the smoking cessation program at [facility]. 04/18/2024 Raynaud's syndrome without gangrene (ICD-10 - [...] Provider Name:Rajinder Guerrero , 06/23/2025 09:45:00 AM, [address] [place] [address] [address] [address], [place], [address], Progress Notes * LUIZ LarisaDOB:1955 (69 yo F)Acc No.[id number]:04/18/2024 Progress Notes Patient: Larisa BATES Provider: Oliva Guerrero MD :1955 A ge:69 Y S ex:Female Date:04/18/2024 Address:[address] [place], [place] [id number] Pcp:Deandra Vaughn MD Subjective: * Chief Complaints: [...] N egative S he was born in [place] and is . She has 2 sons and works at [employer] in [place]. Smoking: Occasional, Exercise: Uses an exercise bike. [...] her to the smoking cessation program at [facility]. 5 . R aynaud's syndrome without gangrene [...] MD Date: 0 04/18/2024 Generated for Jannie stover/Baljit/Katerineitting on: 05/08/2025 12:26 PM EST History and Physical Notes * [...]
--- OUTSIDE RECORDS SUMMARY | 2024-10-17 04:15 | XMS_ITS ---
Author Organization Rajinder Guerrero III, MD Address [address] [place] [address] Care Team Providers Care Observatory Director Name Role Phone Roderick TAPIA, [facility] Primary Care Provider Dr. Rajinder Camargo III Unavailable [phone] Allergies Allergen (clinical drug ingredient) Drug/Non Drug [...] Date Provider Diagnosis Rajinder Guerrero III, MD [address] [place] [address] [place] [address] 10/17/2024 Rajinder Rodriguesne Iron deficiency E61. 1 [...] the smoking cessation program at [facility]. 10/17/2024 Malignant neoplasm of upper-outer quadrant [...] Provider Name:Rajinder Rodriguesne , 06/23/2025 09:45:00 AM, [address] [place] [address] [address], [place], [address], Progress Notes * Larisa DEEDOB:1955 (69 yo F)Acc No.[id number]:10/17/2024 Progress Notes Patient: Larisa BATES Provider: Oliva Guerrero MD :1955 A ge:69 Y S ex:Female Date:10/17/2024 Address:[address] [place], [place] [phone] Pcp:Deandra Vaughn MD Subjective: * Chief Complaints: [...] urrent smoker S he was born in [place] and is . She has 2 sons and works at [employer] in [place]. Smoking: Occasional, Exercise: Uses an exercise bike. [...] the smoking cessation program at [facility]. 4 . M alignant neoplasm of [...] 0 10/17/2024 Generated for Jannie stover/Baljit/Katerineitting on: 0 05/08/2025 12:26 PM EST History and Physical [...]
--- OUTSIDE RECORDS SUMMARY | 2024-12-10 11:32 | XMS_ITS ---
Author Organization Rajinder Guerrero III, MD Address [address] [address] Care Team Providers Care Undertaker Assistant Name Role Phone Roderick TAPIA, [facility] Primary Care Provider Dr. Rajinder Camargo III Unavailable REASON FOR VISIT FYI only Social History Sex Assigned At : Social History Observation Description Sex Assigned At Female Encounters Encounter Location Date Provider Diagnosis Rajinder Guerrero III, MD [address] [place] [address] [address] [facility] [place] [address] 12/10/2024 Rajinder Guerrero Plan Of Treatment Next Appt Details Provider Name:Rajinder Guerrero , 06/23/2025 09:45:00 AM, [address] [place] [address] [place], [address], Progress Notes * Larisa HERRERADOB:1955 (69 yo F)Acc No.[id number]:12/10/2024 Patient: Larisa BATES :1955 A ge:69 Y S ex:Female Address:[address] [place] [address] * true * Date: Generated for Printi ng/Falittleg/eTransmitting on: 0 05/08/2025 12:25 PM EST
--- OUTSIDE RECORDS SUMMARY | 2025-02-21 04:00 | XMS_ITS ---
Author Organization Rajinder Guerrero III, MD Address [address] [place] [address] Care Team Providers Care Spray Worker Name Role Phone Roderick TAPIA, [facility] Primary Care Provider Dr. Rajinder Camargo III Unavailable [phone] Allergies Allergen (clinical drug ingredient) Drug/Non Drug [...] W/U Status Risk Notes Problem Macrocytic anemia (00130740) Macrocytic anemia (D53.9) Active confirmed Her mean [...] Provider Diagnosis Rajinder Guerrero III, MD [address] [place] [address] [place] [address] 02/21/2025 Rajinder Guerrero Iron deficiency E61. 1 [...] her to the smoking cessation program at [facility]. 02/21/2025 Raynaud's syndrome without gangrene (ICD-10 [...] Name:Rajinder Guerrero , 06/23/2025 09:45:00 AM, [address] [place] [address], [address], [address], Progress Notes * Larisa DEEDOB:1955 (69 yo F)Acc No.[id number]:02/21/2025 Progress Notes Patient: Larisa BATES Provider: Oliva Guerrero MD :1955 A ge:69 Y S ex:Female Date:02/21/2025 Address:[address] [place], [place] [phone] Pcp:Deandra Vaughn MD Subjective: * Chief Complaints: [...] involved in the weight loss program at [facility] and has been having a cardiac [...] urrent smoker S he was born in [place] and is . She has 2 sons and works at [employer] in [place]. Smoking: Occasional, Exercise: Uses an exercise bike. [...] her to the smoking cessation program at [facility]. 6 . R aynaud's syndrome without [...] Guerrero MD Date: 04/23/2024 Generated for Cintiai jolanta/Baljit/eTransmitting on: 0 05/08/2025 12:26 PM EST History [...]
--- OUTSIDE RECORDS SUMMARY | 2025-05-08 12:27 | XMS_ITS | Data Portability ---
Author Organization [place] - [facility], Allergy Address [address] [place] [address] Care Team Providers Care Tower Crane Operator Name Role Phone TIAGO SEAMAN Primary Care Provider [phone] Assessment No assessment recorded. Plan of Treatment [...] By Organization Details Last Modified Time 06/10/2024 03308 Patient with hig h body mass index [...] Organization Details Recorded Time Peritonsi llar abscess 68331572 Active 2018 Peritonsi llar abscess; Note: Date Diagnosed : 12/19/2018 4:14 PM (J36) Not Available [facility] 4 02:[facility]17 Recurrent acute streptoco ccal tonsillit is 30337177836 551755 Active 2021 Acute recurrent streptoco ccal tonsillit is; Note: Date Diagnosed : 07/20/2021 10:23 AM (J03.01) Not Available [facility] 4 02:56:17 Chronic tonsillit is 30442431 Active 2021 Chronic tonsillit is; Note: Date Diagnosed : 11/10/2021 3:33 PM (J35.01) Not Available [facility] 4 02:56:16 Snoring 68764982 Active 2024 LUKE CORTEZ MD [address] [facility],[place] [address], [place], [address] , [facility] - [facility] 5 14:08:39 Hypertrop hy of tonsils 04868021 [facility] 2024 LUKE CORTEZ MD [address] [facility],[place] [address], [facility] [place], [address] , [facility] - [facility] 14:08:44 Problem Notes None recorded. Procedures Surgical History Date Name Laterality Status Provider Name and Address Organization Details Recorded Time lumpectomy of breast completed LUKE POWER MD [address] [facility],[place] [address], [place], [address], [facility] - [facility] 06/10/2024 14:05:51 incision of gallbladder completed Lnyn Belcher [facility] 06/10/2024 14:15:15 Imaging Results None recorded. Procedure Notes None recorded. Medical Equipment None Reported. Allergies Allergen ID Allergen Name Allergen Category Reaction Reaction Severity Criticality Documentation Date Start Date Code Code System Note Provider Name and Address Organization Details Recorded Time [id number] Eggs (edible) (substanc e) food,medi cation other Not available Not available 08/29/2023 24944 3004 SNOMED React ion: unkno wn, unspe cifie d;; Not Available [facility] 4 01:12:27 Medications Name Sig Start Date Stop Date Status Note LastModified by Organization Details LastModified Time losartan 50 mg tablet 07/20 completed Medicati on ID: [id number] D uration Value: 90 Brand Name: losartan [...] 1 mg tablet active Medicati on ID: [id number] B rand Name: marisela ole Send Method: E-Prescr ibed Sub s Allowed: subs OK Speci al Instruct ion: TAKE 1 TABLET BY MOUTH EVERY DAY Medi cationGe nericNam e: anastroz ole Not Available Not Available Not Available clindamyc in HCl 300 mg capsule 1 capsule by mouth 12/29 completed Medicati on ID: [id number] D uration Value: 10 Prescri bed By [...] by mouth 2018 active Medicati on ID: [id number] D uration Value: 5 Prescri bed By [...] mg tablet 07/20 completed Medicati on ID: [id number] B rand Name: losartan -hydroch lorothia zide Sen d Method: E-Prescr ibed Sub s Allowed: subs OK Speci al Instruct ion: TAKE 1 TABLET BY MOUTH EVERY DAY Medi cationGe nericNam e: losartan -hydroch lorothia zide Not Available Not Available Not Available hydrochlo rothiazid e 12.5 mg tablet active Medicati on ID: [id number] B rand Name: hydrochl orothiaz jose Send [...] Updated DateTime 06/10/2024 165.1 cm 36.9 kg/m2 561754.51 g Antionette Galindo [place] - [facility] 06/10/2024 13:53:41 Social History None recorded. [...] ICD10 Code Diagnosis IMO Codes Diagnosis Note [id number] LUKE CORTEZ MD [facility] [address] [place] [address] 06/10/2024 13:44:02 06/10/2024 15:22:07 Snoring 20097718 R06.83 Hypertroph y of tonsils 36188861 J35.1 Body mass index 30+ - obesity 265281810 Z68.36 Health Concerns Section Related Observation LastModified by Organization Detai ls LastModified Time None Recorded Concern Status LastModified by Organization Details LastModified Time None Recorded Advance Directives Directive None Recorded Payers Insurance Date Sequence Insurance Name Policy Number Policy Maradiaga Covered Member ID Maradiaga Member ID Guarantor Name 06/10/2024 1 MEDICARE B-[place]: [facility] [employer] Larisa Dee [id number] Larisa Dee 06/10/2024 1 [employer] (MEDICARE REPLACEMENT/A DVANTAGE - PPO) [id number] Larisa Dee [id number] Larisa Dee Notes Date Note Type Note [...] breast cancer and reflux. LUKE POWER MD [address] [place] [address], [place], [address], [facility] - [facility] 06/10/2024 14:10:24 OBGyn Episode No OBEpisode recorded.
--- OUTSIDE RECORDS SUMMARY | 2025-05-08 12:27 | XMS_ITS | Patient Health Record ---
Author Organization [facility] Address [address] [place] [address] Care Team Providers Care Vice President Of Talent Management Name Role Phone Deandra Vaughn Primary Care [...] Status Risk Notes Problem Colon cancer screening (780575950) Colon cancer screening (Z12.11) Active confirmed Problem Flatulence, eructation and gas pain (845909809) Bloating (R14.0) Active confirmed Problem Gastroesophageal reflux disease (826614001) GERD (gastroesophageal reflux disease) (K21.9) Active confirmed Problem Gastroesophageal reflux disease (805142230) Gastroesophageal reflux disease, unspecified whether esophagitis present (K21.9) Active confirmed Plan Of Treatment Future Test Test Name Order Date UPPER GI ENDOSCOPY 01/04/2023 COLONOSCOPY 01/04/2023 Insurance Providers Payer Name Payer Address Payer Phone Subscriber Number Group Number Insured Name Patient Relationship to Insured Coverage Start Date Coverage End Date [employer] (No Referra l) [address] [address] [place] [address] [id number] PIYUSH DEE Self - patient is the insured Medical (General) History Medical History History ICD Code Hypertension Hyperlipidemia Left breast cancer, XRT and hormonal the rapy Polycythemia Anxiety Recent seizures, MRI of the brain pendin g Colonoscopy 07/25/08, hyperplastic polyps x2, ten-year followup Surgical History Surgery Date(Month/Year) Left breast cancer, lumpectomy/axillary node dissection 08/02 Cholecystectomy 10/07
--- OUTSIDE RECORDS SUMMARY | 2025-05-08 12:27 | XMS_ITS | Patient Health Record ---
Author Organization Rajinder Guerrero III, MD Address [address] [place] [address] Care Team Providers Care Drop Wire Aliner Name Role Phone Roderick TAPIA, [facility] Primary Care Provider Dr. Rajinder Camargo III Unavailable Allergies Allergen (clinical drug ingredient) Drug/Non Drug Allergy documented on EMR Reaction Allergy Type Onset Date Status Egg Protein (Egg White) Unknown Drug Allergy Active tirzepatide Zepbound rash Drug Allergy Activ e Results Component Value Reference Range Notes Complete Blood Count Auto Di ff Reviewed date:06/09/2024 09:13:32 AM Interpretation: Performing Lab:[facility], [address] [place] [phone] Notes/Report: White Blood Count 8.9 4.8-10.8 X10*3/uL [...] Phlebotomy Reviewed date:06/09/2024 09:13:32 AM Interpretation: Performing Lab:[facility], [address] [place] [phone] Notes/Report: THER/HGB TNP 12.0-16.0 g/dL Lab Results on file. Performed at [facility] on 05/28/24: Hgb: 13.1 g/dl Hct: [...] ff Reviewed date:08/03/2024 07:24:43 AM Interpretation: Performing Lab:[facility], [address] [place] [phone] Notes/Report: White Blood Count 8.5 4.8-10.8 X10*3/uL [...] Phlebotomy Reviewed date:08/03/2024 07:24:43 AM Interpretation: Performing Lab:[facility], [address] [place] [phone] Notes/Report: THER/HGB TNP 12.0-16.0 g/dL Lab Results on file. Performed at [facility] on 07/30/24: Hgb: 12.5 g/dl Hct: [...] ff Reviewed date:10/02/2024 01:20:13 PM Interpretation: Performing Lab:[facility], [address] [place] [phone] Notes/Report: White Blood Count 8.6 4.8-10.8 X10*3/uL [...] Phlebotomy Reviewed date:10/02/2024 01:20:13 PM Interpretation: Performing Lab:[facility], [address] [place] [phone] Notes/Report: THER/HGB TNP 12.0-16.0 g/dL Lab Results on file. Performed at [facility] on 10/01/24: Hgb: 12.1 g/dl Hct: [...] ff Reviewed date:12/02/2024 01:40:01 PM Interpretation: Performing Lab:[address] [address] Notes/Report: White Blood Count 8.0 4.8-10.8 X10*3/uL [...] Phlebotomy Reviewed date:12/02/2024 01:40:01 PM Interpretation: Performing Lab:[facility], [address] [place] [phone] Notes/Report: THER/HGB TNP 12.0-16.0 g/dL Lab Results on file. Performed at [facility] on 12/02/24: Hgb: 12.1 g/dl Hct: [...] ff Reviewed date:02/09/2025 07:31:57 AM Interpretation: Performing Lab:[facility], [address] [place] [phone] Notes/Report: White Blood Count 7.1 4.8-10.8 X10*3/uL [...] Phlebotomy Reviewed date:02/09/2025 07:31:57 AM Interpretation: Performing Lab:[facility], [address] [place] [phone] Notes/Report: THER/HGB TNP 12.0-16.0 g/dL Lab Results on file. Performed at [facility] on 02/04/25: Hgb: 11.5 g/dl Hct: [...] ff Reviewed date:04/07/2025 04:59:29 PM Interpretation: Performing Lab:[facility], [address] [place] [phone] Notes/Report: White Blood Count 4.7 4.8-10.8 X10*3/uL [...] Phlebotomy Reviewed date:04/07/2025 04:59:29 PM Interpretation: Performing Lab:[facility], [address] [place] [phone] Notes/Report: THER/HGB TNP 12.0-16.0 g/dL Lab Results on file. Performed at [facility] on 04/07/25: Hgb: 12.2 g/dl Hct: [...] Problem Status W/U Status Risk Notes Problem 086404660 Obesity (E66.9) Active confirmed She has lost 22 pounds since her last visit. She is using Zepbound. Her regimen was continued unchanged. Problem Postmenopausal state (31082358) Post-menopausal (Z78.0) Active confirmed She has not had a period in several years. Problem Polycythemia vera (616543530) Polycythemia vera (D45) Active confirmed Her polycythemia is stable and her hematocrit is in the normal range. She will have the CBC done every 2 months instead of one now that she is stable. She will avoid taking iron-containin g medications. Problem 09093257 Iron deficiency (E61.1) Active confirmed She is no longer anemic and a mean cell volume is macrocytic. She'll be observed carefully. The iron will be continued. Comprehensive blood work with a ferritin has been ordered.She has been phlebotomize continuously. Close observation will occur and. Treatment used if necessary. Problem 157793304 Raynaud's syndrome without gangrene (I73.00) Active confirmed No further episodes of Raynaud's syndrome have occurred since her last visit. Problem 30218328 Tobacco dependence (F17.200) Active confirmed She continues to smoke and I have made her aware of the health consequences doing so. I have referred her to the smoking cessation program at [facility]. Problem 402764980 Erythrocytosis (D75.1) Active confirmed She will continue the phlebotomy if needed. At this time her hematocrit and hemoglobin are normal. Currently, the increased red cell mass is well controlled. Problem Macrocytic anemia (28992350) Macrocytic anemia (D53.9) Active confirmed Her mean cell volume remains slightly elevated. Her hematocrit varies between 34 and 36. Phlebotomy has not been necessary recently. 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 There was no sign of metastatic disease or recurrence today. Her anastrozole was continued. Problem 372245979 Lobular carcinoma of left breast, stage 1 [...] Date Provider Diagnosis Rajinder Guerrero III, MD [address] [place] [address] [place] [address] 10/17/2024 Rajinder Guerrero Iron deficiency E61. 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 1 ; Polycythemia vera D45 ; Obesity E66.9 ; Macrocytic anemia D53.9 ; Tobacco dependence F17.200 ; Raynaud's syndrome without gangrene I73.00 and Malignant neoplasm of upper-outer quadrant of left female breast, 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 Rajinder Guerrero III, MD [address] [place] [address] [place] [address] 12/10/2024 Rajinder Guerrero Assessments Encounter Date Diagnosis (ICD Code) Assessment Notes Treatment Notes Treatment Clinical Notes 10/17/2024 Polycythemia vera (ICD-10 - D45) Her [...] occur and. Treatment used if necessary. 10/17/2024 Tobacco dependence (ICD-10 - F17.200) She continues to smoke and I have made her aware of the health consequences doing so. I have referred her to the smoking cessation program at [facility]. 02/21/2025 Obesity (ICD-10 - E66.9) She has lost 22 pounds since her last visit. She is using Zepbound. Her regimen was continued unchanged. 10/17/2024 Malignant neoplasm of upper-outer quadrant of [...] 36. Phlebotomy has not been necessary recently. 10/17/2024 Morbid obesity (ICD-10 - E66.01) She [...] cessation program at [facility]. 02/21/2025 Raynaud's syndrome without gangrene (ICD-10 [...] Provider Name:Rajinder Guerrero , 06/23/2025 09:45:00 AM, [address] [place] [address] , [facility] [place], [place], [address], Insurance Providers Payer Name Payer Address Payer Phone Subscriber Number Group Number Insured Name Patient Relationship to Insured Coverage Start Date Coverage End Date [employer] [address] [place] [address] [id number] Larisa Dee Self - patient is the insured MEDICARE NGS [address] [place] [address] [id number] Larisa Dee Self - patient is the [...]
== END 2025-03-26 00:01 ==
LOC: CF
PROVIDERS: PCP Internal Medicine; Visit Provider Nurse Practitioner
DX: Z48.815 Encounter for surgical aftercare following surgery on the digestive system (principal); I10 Essential (primary) hypertension; E66.01 Morbid (severe) obesity due to excess calories; E78.00 Pure hypercholesterolemia, unspecified; Z98.84 Bariatric surgery status; Z68.34 Body mass index [BMI] 34.0-34.9, adult
CPT/HCPCS: 99212

== ENCOUNTER 2025-03-26 10:50 | Outpatient (AMB) | payer MEDICARE, SELFPAY ==
--- NOTE | 2025-03-26 11:07 | A.OFFVIS_ITS ---
VS Expanded 03/26/25 11:19 03/26/25 12:35 BP 129/59 L Blood Pressure Location Rt brachial Blood Pressure Position Sitting Pulse 63 Pulse Source Pulse Oximeter Temp 96.8 F Temperature Source Temporal Artery Scan Pulse Oximetry 95 Oxygen Delivery Method Room Air Height 5 ft 5 in Weight 207 lb BMI 34.4 Intake Visit Reasons: (OV) PO LSG 03/20/25 Intake Note: pt refused tanita. pt stated Dr Baptiste would like her weight from home scale tomorrow 03/27/25 Allergies oxycodone (From OxyContin) Allergy (Severe, Verified 03/26/25 11:20) severe nausea environmental allergies Allergy (Intermediate, Verified 03/26/25 11:20) Itchy Eyes egg (Egg) Adverse Reaction (Intermediate, Verified 03/26/25 11:20) Gastrointestinal Upset Medication List - Last Reconciled 03/26/25 by Chika Georges, BERNA albuterol sulfate 90 mcg/actuation 2 puffs inhalation QID lorazepam 1 mg PO DAILY PRN losartan 50 mg PO DAILY Held on 03/21/25. Instructions: Resume on 03/22/25. Check your blood pressure every morning as soon as you wake up and send it to Dr. Santana. Do no take the blood pressure medication if the blood pressure is below 120/70. Wait every day to hear back from Dr. Santana before you take the medication. multivitamin 1 tab PO DAILY ondansetron 4 mg PO Q12H pantoprazole 40 mg PO DAILY pravastatin 1 tab PO DAILY sucralfate 10 mL PO BID HPI Comments Details: 70 year old woman s/p LSG on?03/20/2025. Presents for 1 week post op visit. Starting weight was 249.2 lbs. Operative weight was 214 lbs. She was told by Dr. Baptiste to wait until tomorrow to give him a weight. She weighed herself on her home scale today and reports 207 lbs, representing a 42.2 lbs weight loss since start of the program 09/30/2024. BMI today of 34.4. No complaints of nausea, emesis, abdominal pain or reflux, or constipation. BP - checking everyday, fluctuating. Losartan per parameters from Dr. Bridges Compliant with binder. Pantoprazole and carafate as prescribed. Started Celebrate bariatric MVI per Dr. Bridges Current meal plan: Celebrate 1 scoop in 8oz water x3 per day 10-12, 2-4, 4-8 sips 2mL at a time Hydration adequate - 40 oz per day Exercise routine: Stationary bike, slow and only a few mins PFSH Medical History Back pain BMI 34.0-34.9,adult Obesity Cardiomegaly Abnormal EKG GERD (gastroesophageal reflux disease) Anxiety Sleep apnea treated with continuous positive airway pressure (CPAP) Morbid obesity Polycythemia Orthostatic dizziness Hypercholesterolemia Hypertension History of left breast cancer Surgical History History of esophagogastroduodenoscopy (EGD) Hx of colonoscopy Hx of bladder endoscopy Hx laparoscopic cholecystectomy (09/20/22) History of lymph node excision History of lumpectomy of left breast Family History Mother Hypertension High cholesterol Angina at rest Father Hypertension High cholesterol Alcoholic Son No problems noted. Son Hx of sleep apnea Social History Household Members: Significant Other Housing: Apartment Are you a primary acute care clinical nurse specialist to a significant other at home: No Do you presently have visiting nurse or other home services: No Alcohol intake: current Alcohol intake frequency: does not drink Patient Tobacco Use Status: Current someday Tobacco user Tobacco use type: Cigarette Cigarettes Per Day: 1 Years Smoked: 40 e-Cigarette/Vaping Use: Never Used Second Hand Smoke Exposure: No service: No Current occupational status: employed Assessment & Plan Assessment & Plan (1) S/P laparoscopic sleeve gastrectomy: Code(s): Z98.84 - Bariatric surgery status Category: Surgical Plan: Plan: - May shower tomorrow but no bath or submersion of abdomen in water until healed. - Reviewed S&S of infection, incisional care - Light exercise, stationary bike. No abdominal exercises x 6 weeks. Discussed starting cardio exercise slowly. - Abdominal binder for the next 2 weeks with activity or exercise. - Continue meal plan per Dr. Baptiste until next f/u. - Reviewed pantoprazole and carafate dosing. - Continue MVI - Will be emailed link for post op video for review. Follow up: 5 weeks
[2025-03-26 11:19] VITALS: BP 129/59; PULSE 63; TEMP 36; O2SAT 95
[2025-03-26 12:35] VITALS: BMI 34.4
== END 2025-03-26 12:07 | disposition home or self-care (01) ==
LOC: HO.HBS 10:50
PROVIDERS: PCP Internal Medicine Medical Oncology; Visit Provider Nurse Practitioner
DX: E66.811 Obesity, class 1 (principal); Z68.34 Body mass index [BMI] 34.0-34.9, adult; Z90.3 Acquired absence of stomach [part of]; Z98.84 Bariatric surgery status
CPT/HCPCS: 99024

== ENCOUNTER 2025-04-07 08:51 | Outpatient (REF) | payer MEDICARE, SELFPAY ==
--- OUTSIDE RECORDS SUMMARY | 2024-03-25 13:15 | XMS_ITS ---
Author Organization Rajinder Guerrero III, MD Address [address] [place] [address] [place] [address] Care Team Providers Care Pressure Controller Name Role Phone Roderick TAPIA, Deandra Primary Care Provider Dr. Rajinder Camargo III Unavailable [phone] REASON FOR VISIT Follow-up Social History Sex Assigned At : Social History Observation Description Sex Assigned At Female Encounters Encounter Location Date Provider Diagnosis Rajinder Guerrero III, MD [address] [place] [address] [address] [facility] [place] [address] 03/25/2024 Rajinder Guerrero Plan Of Treatment Next Appt Details Provider Name:Rajinder Guerrero , 06/23/2025 09:45:00 AM, [address] [place] [address] [place], [address], Progress Notes * Larisa DEEDOB:1955 (70 yo F)Acc No.[id number]:03/25/2024 Progress Notes Patient: Larisa BATES Provider: Oliva Guerrero MD :1955 A ge:69 Y S ex:Female Date:03/25/2024 Address:[address] [place], [place] [address] [id number] Pcp:Deandra Vaughn MD Subjective: * Chief Complaints: [...] Date: 05/26/2023 Generated for Jannie stover/Baljit/Annalise on: 06/08/2024 09:28 AM EST
--- OUTSIDE RECORDS SUMMARY | 2024-04-18 04:00 | XMS_ITS ---
Author Organization Rajinder Guerrero III, MD Address [address] [place] [address] Care Team Providers Care Steel Crane Operator Name Role Phone Roderick TAPIA, [facility] Primary Care Provider Dr. Rajinder Camargo III Unavailable [phone] Allergies Allergen (clinical drug ingredient) Drug/Non Drug [...] Date Provider Diagnosis Rajinder Guerrero III, MD [address] [place] [address] [place] [address] 04/18/2024 Rajinder Guerrero Iron deficiency E61. 1 [...] her to the smoking cessation program at [facility]. 04/18/2024 Raynaud's syndrome without gangrene (ICD-10 - [...] Provider Name:Rajinder Guerrero , 06/23/2025 09:45:00 AM, [address] [place] [address] [address] [address], [place], [address], Progress Notes * LUIZ LarisaDOB:1955 (69 yo F)Acc No.[id number]:04/18/2024 Progress Notes Patient: Larisa BATES Provider: Oliva Guerrero MD :1955 A ge:69 Y S ex:Female Date:04/18/2024 Address:[address] [place], [place] [phone] Pcp:Deandra Vaughn MD Subjective: * Chief Complaints: [...] N egative S he was born in [place] and is . She has 2 sons and works at [employer] in [place]. Smoking: Occasional, Exercise: Uses an exercise bike. [...] her to the smoking cessation program at [facility]. 5 . R aynaud's syndrome without gangrene [...] 0 04/18/2024 Generated for Jannie stover/Baljit/Annalise on: 06/08/2024 09:27 AM EST History and Physical Notes * [...]
--- OUTSIDE RECORDS SUMMARY | 2024-10-17 04:15 | XMS_ITS ---
Author Organization Rajinder Guerrero III, MD Address [address] [address] Care Team Providers Care Lard Refiner Name Role Phone Roderick TAPIA, [facility] Primary Care Provider Dr. Rajinder Camargo III Unavailable Allergies Allergen (clinical drug ingredient) Drug/Non Drug Allergy documented on EMR Reaction Allergy Type Onset Date Status No Known Drug Allergy Unknown Drug Allergy Active REASON FOR VISIT Lobular breast cancer, Iron deficiency, Tobacco dependence, Morbid obesity, Polycythemia vera Medications Medication SIG (Take, Route, Frequency, Duration) Notes Start Date End Date Status Losartan Potassium-HCTZ 100-25 MG TAKE 1 TABLET BY MOUTH EVERY DAY Oral Active Pravastatin Sodium 40 MG 1 tablet Orally Once a day Active Diclofenac Sodium 75 MG TAKE 1 TABLET BY MOUTH TWICE A DAY Oral Active Zepbound 2.5 MG/0.5ML 0.5 mL Subcutaneous 10/18/19 25 Active Social History Tobacco Use: Social History Observation Description Date Details (start date - stop date) Current Smoker NA - NA Sex Assigned At : Social History Observation Description Sex Assigned At Female Tobacco Use/Smoking Question Answer Notes Patient is a current smoker Vital Signs Temperature 97.4 degrees Fahrenheit 10/18/19 25 Blood pressure systolic 138 mm Hg 10/18/19 25 Blood pressure diastolic 76 mm Hg 025 Heart Rate 67 /min 10/17/2024 Height 65 in 10/17/2024 Weight 249 lbs 10/17/2024 BMI 41.43 kg/m2 10/17/2024 Encounters Encounter Location Date Provider Diagnosis Rajinder Guerrero III, MD [address] [place] [address] [place] [address] 10/17/2024 Rajinder Rodriguesne Iron deficiency E61. 1 ; Polycythemia vera D45 ; Tobacco dependence F17.200 ; Malignant neoplasm of upper-outer quadrant of left female breast, 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 and Morbid obesity E66.01 Assessments Encounter Date Diagnosis (ICD Code) Assessment Notes Treatment Notes Treatment Clinical Notes 10/17/2024 Iron deficiency (ICD-10 - E61.1) She is no longer anemic and a mean cell volume is macrocytic. She'll be observed carefully. The iron will be continued. Comprehensive blood work with a ferritin has been ordered.She has been phlebotomize continuously. Close observation will occur and. Treatment used if necessary. 10/17/2024 Polycythemia vera (ICD-10 - D45) Her polycythemia is stable and her hematocrit is in the normal range. She will have the CBC done every 2 months instead of one now that she is stable. She will avoid taking iron-containing medications. 10/17/2024 Tobacco dependence (ICD-10 - F17.200) She continues to smoke and I have made her aware of the health consequences doing so. I have referred her to the smoking cessation program at [facility]. 10/17/2024 Malignant neoplasm of upper-outer quadrant of left female breast, unspecified estrogen receptor status (ICD-10 - C50.412) She continues with surveillance mammography and breast self examination. There was no sign of metastatic disease or recurrence today. Her anastrozole was continued. 10/17/2024 Morbid obesity (ICD-10 - E66.01) She has gained 86pounds and her body mass index is now 40. We have reviewed diet and nutrition. We have made a plan to lose weight at a rate of one half of a pound per week through a diet restricted in fat calories and sodium combined with regular physical activity.She is now on Zepbound Plan Of Treatment Medication Medication Name Sig Start Date Stop Date Notes Losartan Potassium-HCTZ 100-25 MG TAKE 1 TABLET BY MOUTH EVERY DAY Oral Pravastatin Sodium 40 MG 1 tablet Orally Once a day Diclofenac Sodium 75 MG TAKE 1 TABLET BY MOUTH TWICE A DAY Oral Zepbound 2.5 MG/0.5ML 0.5 mL Subcutaneous 10/17/2024 Pending Test Test Name Order Date PROFILE, RANDOM (COMPREHENSIVE METABOLIC ) 10/17/2024 CBC w DIFF 10/17/2024 Ferritin 10/17/2024 Next Appt Details Follow Up: 4 Months, Reason: OV Provider Name:Rajinder Rodriguesne , 06/23/2025 09:45:00 AM, [address] [place] [address] [address], [place], [address], Progress Notes * Larisa DEEDOB:1955 (69 yo F)Acc No.[id number]:10/17/2024 Progress Notes Patient: Larisa BATES Provider: Oliva Guerrero MD :1955 A ge:69 Y S ex:Female Date:10/17/2024 Address:[address] [place], [place] [phone] Pcp:Deandra Vaughn MD Subjective: * Chief Complaints: * L obular breast cancerIron deficiencyTobacco dependenceMorbid obesityPolycythemia vera * HPI: C OVID-19 Screening: S he returns for her hematological followup. She has not had any phlebotomy in 6 months because her hemoglobin and hematocrit have been stable. She had a mammogram in August. She has not noticed any lumps in her breast. She is morbidly obese but now is on Zepbound. She is on CPAP after anesthesia recommended a sleep study which was done eventually and which was positive. She had a cholecystectomy recently. She is medically stable and doing well. Her blood work was reviewed with her in detail. Questions H ave you had any new onset fever, chills, cough, congestion, sore throat, shortness of breath, muscle aches? N o * ROS: G eneral/Constitutional: pain o nly normal aches and pains. C hills d enies.?Fatigue a dmits. F ever d enies. E NT: Decreased hearing d enies. R espiratory: Cough n on-productive. C ardiovascular: Chest pain with exertion d [...] been noted. G enitourinary: Frequent urination a t night. M usculoskeletal: Muscle aches d enies. P [...] T obacco Use: T obacco Use/Smoking P jovanna is a c urrent smoker S he was born in [place] and is . She has 2 sons and works at [employer] in [place]. Smoking: Occasional, Exercise: Uses an exercise bike. * Medications: T akingZepbound 2.5 MG/0.5ML Solution 0.5 mL Subcutaneous Pravastatin Sodium 40 MG Tablet 1 tablet Orally Once a day Losartan Potassium-HCTZ 100-25 MG Tablet TAKE 1 TABLET BY MOUTH EVERY DAY Oral Diclofenac Sodium 75 MG Tablet Delayed Release TAKE 1 TABLET BY MOUTH TWICE A DAY Oral Medication List reviewed and reconciled with the patientTaking Zepbound 2.5 MG/0.5ML Solution 0.5 mL Subcutaneous Taking Pravastatin Sodium 40 MG Tablet 1 tablet Orally Once a day Taking Losartan Potassium-HCTZ 100-25 MG Tablet TAKE 1 TABLET BY MOUTH EVERY DAY Oral Taking Diclofenac Sodium 75 MG Tablet Delayed Release TAKE 1 TABLET BY MOUTH TWICE A DAY Oral Medication List reviewed and reconciled with the patient * Allergies: N o Known Drug Allergyno[Allergies Verified] Objective: * Vitals: H t: 65, Wt:249, BMI:41.43, BP:138/76, HR:67, Temp:97.4, Wt-k.94. * P ast Orders: Lab:Complete Blood Count Aut o Diff * Collection Date 10/01/2024 07/30/2024 05/28/2024 Collection Time 10:08 AM 10:07 AM 11:11 AM Order Date 10/01/2024 07/30/2024 05/28/2024 White Blood Count 8.6 (Ref Range: 4.8-10.8 X10*3/uL) 8.5 (Ref Range: 4.8-10.8 X10*3/uL) 8.9 (Ref Range: 4.8-10.8 X10*3/uL) Red Blood Count 3.50 L (Ref Range: 4.20-5.50 X10*6/uL) 3.77 L (Ref Range: 4.20-5.50 X10*6/uL) 4.08 L (Ref Range: 4.20-5.50 X10*6/uL) Hemoglobin 12.1 (Ref Range: 12.0-16.0 g/dl) 12.5 (Ref Range: 12.0-16.0 g/dl) 13.1 (Ref Range: 12.0-16.0 g/dl) Hematocrit 35.7 L (Ref Range: 37.0-47.0 %) 37.4 (Ref Range: 37.0-47.0 %) 40.9 (Ref Range: 37.0-47.0 %) Mean Corpuscular Volume 102.0 H (Ref Range: 80.0-98.0 fL) 99.2 H (Ref Range: 80.0-98.0 fL) 100.2 H (Ref Range: 80.0-98.0 fL) Mean Corpuscular Hemoglobin 34.6 H (Ref Range: 27.0-33.0 pg) 33.2 H (Ref Range: 27.0-33.0 pg) 32.1 (Ref Range: 27.0-33.0 pg) Mean Corpuscular HGB Conc 33.9 (Ref Range: 31.0-35.0 g/dl) 33.4 (Ref Range: 31.0-35.0 g/dl) 32.0 (Ref Range: 31.0-35.0 g/dl) Red Cell Distribution Width 14.1 (Ref Range: 11.0-16.0 %) 14.7 (Ref Range: 11.0-16.0 %) 14.3 (Ref Range: 11.0-16.0 %) Platelet Count 311 (Ref Range: 160-400 X10*3/uL) 327 (Ref Range: 160-400 X10*3/uL) 356 (Ref Range: 160-400 X10*3/uL) Mean Platelet Volume 9.6 (Ref Range: 9.4-12.3 fL) 9.7 (Ref Range: 9.4-12.3 fL) 9.8 (Ref Range: 9.4-12.3 fL) Neutrophils Percent Auto 74.4 H (Ref Range: 45-73 %) 66.9 (Ref Range: 45-73 %) 66.2 (Ref Range: 45-73 %) Imm Gran Pct Auto 0.5 H (Ref Range: 0.0-0.4 %) 0.4 (Ref Range: 0.0-0.4 %) 0.3 (Ref Range: 0.0-0.4 %) Lymphocytes Percent Auto 13.8 L (Ref Range: 20-40 %) 20.5 (Ref Range: 20-40 %) 19.5 L (Ref Range: 20-40 %) Monocytes Percent Auto 9.1 (Ref Range: 2-11 %) 9.7 (Ref Range: 2-11 %) 10.6 (Ref Range: 2-11 %) Eosinophils Percent Auto 1.8 (Ref Range: 0-4 %) 1.9 (Ref Range: 0-4 %) 2.7 (Ref Range: 0-4 %) Basophils Percent Auto 0.4 (Ref Range: 0-2 %) 0.6 (Ref Range: 0-2 %) 0.7 (Ref Range: 0-2 %) NRBC Pct Auto 0.0 (Ref Range: 0.0-0.2 /100WBC) 0.0 (Ref Range: 0.0-0.2 /100WBC) 0.0 (Ref Range: 0.0-0.2 /100WBC) Neutrophils Absolute Auto 6.4 (Ref Range: 2.0-8.3 x10*3/uL) 5.7 (Ref Range: 2.0-8.3 x10*3/uL) 5.9 (Ref Range: 2.0-8.3 x10*3/uL) Imm Gran Abs Auto 0.04 H (Ref Range: 0.00-0.03 X10*3/uL) 0.03 (Ref Range: 0.00-0.03 X10*3/uL) 0.03 (Ref Range: 0.00-0.03 X10*3/uL) Lymphocytes Absolute Auto 1.2 (Ref Range: 1.2-4.9 X10*3/uL) 1.7 (Ref Range: 1.2-4.9 X10*3/uL) 1.7 (Ref Range: 1.2-4.9 X10*3/uL) Monocytes Absolute Auto 0.8 (Ref Range: 0.1-1.2 X10*3/uL) 0.8 (Ref Range: 0.1-1.2 X10*3/uL) 0.9 (Ref Range: 0.1-1.2 X10*3/uL) Eosinophils Absolute Auto 0.2 (Ref Range: 0.0-0.4 X10*3/uL) 0.2 (Ref Range: 0.0-0.4 X10*3/uL) 0.2 (Ref Range: 0.0-0.4 X10*3/uL) Basophils Absolute Auto 0.0 (Ref Range: 0.0-0.2 X10*3/uL) 0.1 (Ref Range: 0.0-0.2 X10*3/uL) 0.1 (Ref Range: 0.0-0.2 X10*3/uL) NRBC Abs Auto 0.000 (Ref Range: 0.0-0.012 X10*3/uL) 0.000 (Ref Range: 0.0-0.012 X10*3/uL) 0.000 (Ref Range: 0.0-0.012 X10*3/uL) * Lab:Therapeutic Phlebotomy * Collection Date 10/01/2024 07/30/2024 05/28/2024 Collection Time 10:01 AM 10:02 AM 11:05 AM Order Date 10/01/2024 07/30/2024 05/28/2024 THER/HCT TNP (Ref Range: 37.0-47.0 %) TNP (Ref Range: 37.0-47.0 %) TNP (Ref Range: 37.0-47.0 %) THER/HGB TNP (Ref Range: 12.0-16.0 g/dL) TNP (Ref Range: 12.0-16.0 g/dL) TNP (Ref Range: 12.0-16.0 g/dL) Therapeutic Phlebotomy TNP TNP TNP * Examination: G eneral Examination: GENERAL APPEARANCE: [...] LUNGS: c lear to auscultation . BREASTS: no masses palpable bilaterally. ABDOMEN: b owel sounds normal, no ascites, no organomegaly, no mass, cholecystectomy scar, morbid obesity, Spleen unremarkable. RECTAL EXAM: n ot examined. MUSCULOSKELETAL: e xtremities unremarkable, no clubbing, cyanosis or edema. PERIPHERAL PULSES: n ormal. NEUROLOGIC: a lert and oriented, cranial nerves 2-12 grossly intact, deep tendon reflexes 2+ symmetrical, motor strength normal upper and lower extremities, sensory exam intact. PSYCH: a lert, oriented. Assessment: * Assessment: 1. P olycythemia vera [...] and. Treatment used if necessary. 3 . T obacco dependence - F17.200 N otes :She continues to smoke and I have made her aware of the health consequences doing so. I have referred her to the smoking cessation program at [facility]. 4 . 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 There was no sign of metastatic disease or recurrence today. Her anastrozole was continued. 5 . M orbid obesity - E66.01 N otes :She has gained 86pounds and her body mass index is now 40. We have reviewed diet and nutrition. We have made a plan to lose weight at a rate of one half of a pound per week through a diet restricted in fat calories and sodium combined with regular physical activity.She is now on Zepbound Plan: * Treatment: 2. I kassy deficiency Continue Pravastatin Sodium Tablet, 40 MG, 1 tablet, Orally, Once a day; C ontinue Losartan Potassium-HCTZ Tablet, 100-25 MG, TAKE 1 TABLET BY MOUTH EVERY DAY, Oral; C ontinue Diclofenac Sodium Tablet Delayed Release, 75 MG, TAKE 1 TABLET BY MOUTH TWICE A DAY, Oral. L AB: PROFILE, RANDOM (COMPREHENSIVE METABOLIC) L AB: CBC w DIFF L AB: Ferritin * Procedure Codes: [...] tobacco use and urged to quit. 0 10/17/2024 Patient Lifestyle Goals P atient wants to quit Treatment Goals S et a quit date, Cut down by 1 cigarette a week Barriers S tress, Social smoker Self-Management Plan M analia a plan to cut down number of cigarettes over time and set a date to work towards quitting * Follow Up: 4 Months (Reason: OV) * Images: * Sign off status: Completed true * Provider: Oliva Guerrero MD Date: 0 10/17/2024 Generated for Jannie stover/Baljit/Katerineitting on: 1 06/08/2024 09:28 AM EST History and Physical Notes * HPI (History of Present Illness) Category Sub-Category Detail Notes COVID-19 Screening Questions Have you had any new onset fever, chills, cough, congestion, sore throat, shortness of breath, muscle aches?: No Examination Category Sub-Category Detail Notes General [...] normal, no ascites, no organomegaly, no mass, cholecystectomy scar, morbid obesity, Spleen unremarkable NEUROLOGIC: alert and oriented, cranial nerves 2-12 grossly intact, deep tendon reflexes 2+ symmetrical, motor strength normal upper and lower extremities, sensory exam intact SKIN: no suspicious lesion s, anicteric PERIPHERAL PULSES: normal BREASTS: no masses palpable b ilaterally MUSCULOSKELETAL: extremities unremark able, no clubbing, cyanosis or edema LYMPH NODES: no enlarged lymph no wilfrido,spleen normal RECTAL EXAM: not examined PSYCH: alert, oriented ORAL CAVITY: normal, unremarkable
--- OUTSIDE RECORDS SUMMARY | 2024-12-10 11:32 | XMS_ITS ---
Author Organization Rajinder Guerrero III, MD Address [address] [place] [address] Care Team Providers Care Financial Aid Administrator Name Role Phone Roderick TAPIA, [facility] Primary Care Provider Dr. Rajinder Camargo III Unavailable REASON FOR VISIT FYI only Social History Sex Assigned At : Social History Observation Description Sex Assigned At Female Encounters Encounter Location Date Provider Diagnosis Rajinder Guerrero III, MD [address] [place] [address] [address] [facility] [place] [address] 12/10/2024 Rajinder Guerrero Plan Of Treatment Next Appt Details Provider Name:Rajinder Guerrero , 06/23/2025 09:45:00 AM, [address] [place] [address] [place], [address], Progress Notes * Larisa HERRERADOB:1955 (69 yo F)Acc No.[id number]:12/10/2024 Patient: Larisa BATES :1955 A ge:69 Y S ex:Female Address:[address] [place] [address] * true * Date: Generated for Cintiai ng/Falittleg/eTransmitting on: 06/08/2024 09:27 AM EST
--- OUTSIDE RECORDS SUMMARY | 2025-02-21 04:00 | XMS_ITS ---
Author Organization Rajinder Guerrero III, MD Address [address] [place] [address] Care Team Providers Care Senior Clinical Study Manager Name Role Phone Roderick TAPIA, [facility] Primary Care Provider Dr. Rajinder Camargo III Unavailable [phone] Allergies Allergen (clinical drug ingredient) Drug/Non Drug [...] W/U Status Risk Notes Problem Macrocytic anemia (55709965) Macrocytic anemia (D53.9) Active confirmed Her mean [...] Date Provider Diagnosis Rajinder Guerrero III, MD [address] [place] [address] [place] [address] 02/21/2025 Rajinder Guerrero Iron deficiency E61. 1 [...] to the smoking cessation program at [facility]. 02/21/2025 Raynaud's syndrome without gangrene (ICD-10 [...] Name:Rajinder Guerrero , 06/23/2025 09:45:00 AM, [address] [place] [address], [address], [address], Progress Notes * Larisa DEEDOB:1955 (69 yo F)Acc No.[id number]:02/21/2025 Progress Notes Patient: Larisa BATES Provider: Oliva Guerrero MD :1955 A ge:69 Y S ex:Female Date:02/21/2025 Address:[address] [place], [place] [phone] Pcp:Deandra Vaughn MD Subjective: * Chief Complaints: [...] involved in the weight loss program at [facility] and has been having a cardiac [...] urrent smoker S he was born in [place] and is . She has 2 sons and works at [employer] in [place]. Smoking: Occasional, Exercise: Uses an exercise bike. [...] to the smoking cessation program at [facility]. 6 . R aynaud's syndrome without [...] Date: 04/23/2024 Generated for Cintiai jolanta/Baljit/Sukiransmitting on: 06/08/2024 09:27 AM EST History and [...]
[2025-04-07 09:05] LABS: MANUAL DIFF FLAG NO
[2025-04-07 09:06] LABS: Hematocrit 37.5 % (37.0-47.0); Hemoglobin 12.2 g/dl (12.0-16.0); Imm Gran Abs Auto 0.00 X10*3/uL (0.00-0.03); Imm Gran Pct Auto 0.0 % (0.0-0.4); Lymphocytes Absolute Auto 0.9 X10*3/uL (1.2-4.9); Mean Corpuscular HGB Conc 32.5 g/dl (31.0-35.0); Mean Corpuscular Hemoglobin 32.4 pg (27.0-33.0); Mean Corpuscular Volume 99.7 fL (80.0-98.0); NRBC Abs Auto 0.000 X10*3/uL (0.0-0.012); NRBC Pct Auto 0.0 /100WBC (0.0-0.2); Platelet Count 242 X10*3/uL (160-400); Red Blood Count 3.76 X10*6/uL (4.20-5.50); White Blood Count 4.7 X10*3/uL (4.8-10.8)
--- OUTSIDE RECORDS SUMMARY | 2025-04-07 09:28 | XMS_ITS | Patient Health Record ---
Author Organization Rajinder Guerrero III, MD Address [address] [place] [address] Care Team Providers Care Dye Beck Reel Operator Name Role Phone Roderick TAPIA, [facility] [...] ff Reviewed date:06/09/2024 09:13:32 AM Interpretation: Performing Lab:[facility], [address] [place] [phone] Notes/Report: White Blood Count 8.9 4.8-10.8 X10*3/uL [...] Phlebotomy Reviewed date:06/09/2024 09:13:32 AM Interpretation: Performing Lab:[facility], [address] [place] [address] Notes/Report: THER/HGB TNP 12.0-16.0 g/dL Lab Results on file. Performed at [facility] on 05/28/24: Hgb: 13.1 g/dl Hct: 40.9 [...] ff Reviewed date:08/03/2024 07:24:43 AM Interpretation: Performing Lab:[facility], [address] [place] [phone] Notes/Report: White Blood Count 8.5 4.8-10.8 X10*3/uL [...] Phlebotomy Reviewed date:08/03/2024 07:24:43 AM Interpretation: Performing Lab:[facility], [address] [place] [phone] Notes/Report: THER/HGB TNP 12.0-16.0 g/dL Lab Results on file. Performed at [facility] on 07/30/24: Hgb: 12.5 g/dl Hct: 37.4% THER/HCT TNP 37.0-47.0 % Therapeutic Phlebotomy TNP Reason: Pre-phlebotomy Hgb/Hct is below the established parameter for this patient. Please note that a copy of this report has been sent to the Primary Care Physician, the ordering physician and any physician designated by patient request. Complete Blood Count Auto Di ff Reviewed date:10/02/2024 01:20:13 PM Interpretation: Performing Lab:[facility], [address] [place] [phone] Notes/Report: White Blood Count 8.6 4.8-10.8 X10*3/uL [...] 2.0-8.3 x10*3/u L Imm Gran Abs Auto 0.04 0.00-0.03 X10*3/uL Lymphocytes Absolute Auto 1.2 1.2-4.9 X10*3/u L Monocytes Absolute Auto 0.8 0.1-1.2 X10*3/uL Eosinophils Absolute Auto 0.2 0.0-0.4 X10*3/u L Basophils Absolute Auto 0.0 0.0-0.2 X10*3/uL NRBC Abs Auto 0.000 0.0-0.012 X10*3/uL Therapeutic Phlebotomy Reviewed date:10/02/2024 01:20:13 PM Interpretation: Performing Lab:[facility], [address] [place] [phone] Notes/Report: THER/HGB TNP 12.0-16.0 g/dL Lab Results on file. Performed at [facility] on 10/01/24: Hgb: 12.1 g/dl Hct: 35.7 [...] ff Reviewed date:12/02/2024 01:40:01 PM Interpretation: Performing Lab:[address] [phone] Notes/Report: White Blood Count 8.0 4.8-10.8 X10*3/uL [...] 0.0-0.2 /100WBC Neutrophils Absolute Auto 6.1 2.0-8.3 x10*3/u L Imm Gran Abs Auto 0.03 0.00-0.03 X10*3/uL Lymphocytes Absolute Auto 1.1 1.2-4.9 X10*3/u L Monocytes Absolute Auto 0.7 0.1-1.2 X10*3/uL Eosinophils Absolute Auto 0.2 0.0-0.4 X10*3/u L Basophils Absolute Auto 0.1 0.0-0.2 X10*3/uL NRBC Abs Auto 0.000 0.0-0.012 X10*3/uL Therapeutic Phlebotomy Reviewed date:12/02/2024 01:40:01 PM Interpretation: Performing Lab:[facility], [address] [place] [phone] Notes/Report: THER/HGB TNP 12.0-16.0 g/dL Lab Results on file. Performed at [facility] on 12/02/24: Hgb: 12.1 g/dl Hct: 36.0 [...] ff Reviewed date:02/09/2025 07:31:57 AM Interpretation: Performing Lab:[facility], [address] [place] [phone] Notes/Report: White Blood Count 7.1 4.8-10.8 X10*3/uL [...] 0.0-0.2 /100WBC Neutrophils Absolute Auto 5.0 2.0-8.3 x10*3/u L Imm Gran Abs Auto 0.02 0.00-0.03 X10*3/uL Lymphocytes Absolute Auto 1.2 1.2-4.9 X10*3/u L Monocytes Absolute Auto 0.6 0.1-1.2 X10*3/uL Eosinophils Absolute Auto 0.2 0.0-0.4 X10*3/u L Basophils Absolute Auto 0.1 0.0-0.2 X10*3/uL NRBC Abs Auto 0.000 0.0-0.012 X10*3/uL Therapeutic Phlebotomy Reviewed date:02/09/2025 07:31:57 AM Interpretation: Performing Lab:[facility], [address] [place] [phone] Notes/Report: THER/HGB TNP 12.0-16.0 g/dL Lab Results on file. Performed at [facility] on 02/04/25: Hgb: 11.5 g/dl Hct: 34.9 [...] (Not yet reviewed by provider) Interpretation: Performing Lab:[facility], [address] [place] [phone] Notes/Report: White Blood Count 4.7 4.8-10.8 X10*3/uL Red Blood Count 3.76 4.20-5.50 X10*6/uL Hemoglobin 12.2 12.0-16.0 g/dl Hematocrit 37.5 37.0-47.0 % Mean Corpuscular Volume 99.7 80.0-98.0 fL Mean Corpuscular Hemoglobin 32.4 27.0-33.0 pg Mean Corpuscular HGB Conc 32.5 31.0-35.0 g/dl Red Cell Distribution Width 13.3 11.0-16.0 % Platelet Count 242 160-400 X10*3/uL Mean Platelet Volume 10.4 9.4-12.3 fL Neutrophils Percent Auto 65.6 45-73 % Imm Gran Pct Auto 0.0 0.0-0.4 % Lymphocytes Percent Auto 18.6 20-40 % Monocytes Percent Auto 11.6 2-11 % Eosinophils Percent Auto 3.6 0-4 % Basophils Percent Auto 0.6 0-2 % NRBC Pct Auto 0.0 0.0-0.2 /100WBC Neutrophils Absolute Auto 3.1 2.0-8.3 x10*3/u L Imm Gran Abs Auto 0.00 0.00-0.03 X10*3/uL Lymphocytes Absolute Auto 0.9 1.2-4.9 X10*3/u L Monocytes Absolute Auto 0.6 [...] Problem Status W/U Status Risk Notes Problem 444538586 Obesity (E66.9) Active confirmed She has lost 22 pounds since her last visit. She is using Zepbound. Her regimen was continued unchanged. Problem Postmenopausal state (18270928) Post-menopausal (Z78.0) Active confirmed She has not had a period in several years. Problem Polycythemia vera (913602912) Polycythemia vera (D45) Active confirmed Her polycythemia is stable and her hematocrit is in the normal range. She will have the CBC done every 2 months instead of one now that she is stable. She will avoid taking iron-containin g medications. Problem 58800217 Iron deficiency (E61.1) Active confirmed She is no longer anemic and a mean cell volume is macrocytic. She'll be observed carefully. The iron will be continued. Comprehensive blood work with a ferritin has been ordered.She has been phlebotomize continuously. Close observation will occur and. Treatment used if necessary. Problem 913812423 Raynaud's syndrome without gangrene (I73.00) Active confirmed No further episodes of Raynaud's syndrome have occurred since her last visit. Problem 80741593 Tobacco dependence (F17.200) Active confirmed She continues to smoke and I have made her aware of the health consequences doing so. I have referred her to the smoking cessation program at [facility]. Problem 951770121 Erythrocytosis (D75.1) Active confirmed She will continue the phlebotomy if needed. At this time her hematocrit and hemoglobin are normal. Currently, the increased red cell mass is well controlled. Problem Macrocytic anemia (15000246) Macrocytic anemia (D53.9) Active confirmed Her mean cell volume remains slightly elevated. Her hematocrit varies between 34 and 36. Phlebotomy has not been necessary recently. Problem 303653241 Morbid obesity (E66.01) Active confirmed She has [...] neoplasm of upper-outer quadrant of female breast (414984777) Malignant neoplasm of upper-outer quadrant of left female breast, unspecified estrogen receptor status (C50.412) Active confirmed She continues with surveillance mammography and breast self examination. There was no sign of metastatic disease or recurrence today. Her anastrozole was continued. Problem 226360420 Lobular carcinoma of left breast, stage 1 [...] Date Provider Diagnosis Rajinder Guerrero III, MD [address] [place] [address] [place] [address] 04/18/2024 Rajinder Guerrero Iron deficiency E61. 1 ; Polycythemia vera D45 ; Celiac disease K90.0 ; Tobacco dependence F17.200 ; Raynaud's syndrome without gangrene I73.00 ; Malignant neoplasm of upper-outer quadrant of left female breast, 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 and Morbid obesity E66.01 Rajinder Guerrero III, MD [address] [place] [address] [place] [address] 10/17/2024 Rajinder Guerrero Iron deficiency E61. 1 ; Polycythemia vera D45 ; Tobacco dependence F17.200 ; Malignant neoplasm of upper-outer quadrant of left female breast, 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 and Morbid obesity E66.01 Rajinder Guerrero III, MD [address] [place] [address] [place] [address] 02/21/2025 Rajinder Guerrero Iron deficiency E61. 1 ; Polycythemia vera D45 ; Obesity E66.9 ; Macrocytic anemia D53.9 ; Tobacco dependence F17.200 ; Raynaud's syndrome without gangrene I73.00 and Malignant neoplasm of upper-outer quadrant of left female breast, 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 Rajinder Guerrero III, MD [address] [place] [address] [place] [address] 12/10/2024 Rajinder Guerrero Assessments Encounter Date Diagnosis [...] to the smoking cessation program at [facility]. 02/21/2025 Obesity (ICD-10 - E66.9) She has lost 22 pounds since her last visit. She is using Zepbound. Her regimen was continued unchanged. 04/18/2024 Tobacco dependence (ICD-10 - F17.200) She continues to smoke and I have made her aware of the health consequences doing so. I have referred her to the smoking cessation program at [facility]. 10/17/2024 Malignant neoplasm of upper-outer [...] to the smoking cessation program at [facility]. 04/18/2024 Malignant neoplasm of upper-outer quadrant of [...] C) 04/18/2024 PROFILE, RANDOM (COMPREHENSIVE METABOLIC ) 08/27/2019 PROFILE, RANDOM (COMPREHENSIVE METABOLIC ) 03/21/2022 PROFILE, RANDOM (COMPREHENSIVE METABOLIC ) 02/21/2025 PROFILE, RANDOM (COMPREHENSIVE METABOLIC ) 04/29/2019 PROFILE, RANDOM (COMPREHENSIVE METABOLIC ) 09/22/2023 PROFILE, RANDOM (COMPREHENSIVE METABOLIC ) 06/30/2021 PROFILE, RANDOM (COMPREHENSIVE METABOLIC ) 07/20/2022 PROFILE, RANDOM (COMPREHENSIVE METABOLIC ) 11/13/2019 PROFILE, RANDOM (COMPREHENSIVE METABOLIC ) 10/17/2024 PROFILE, RANDOM (COMPREHENSIVE METABOLIC ) 10/19/2021 PROFILE, RANDOM (COMPREHENSIVE METABOLIC ) 05/19/2023 PROFILE, RANDOM (COMPREHENSIVE METABOLIC ) 12/30/2020 TSH (THYROID STIMULATING HORMONE) 2021 FERRITIN 08/27/2019 FERRITIN 04/29/2019 B12 06/30/2021 CBC w DIFF 10/17/2024 CBC w DIFF 10/19/2021 CBC w DIFF 06/30/2021 CBC w DIFF 12/30/2020 CBC w DIFF 04/18/2024 CBC w DIFF 03/21/2022 CBC w DIFF 08/27/2019 CBC w DIFF 02/21/2025 CBC w DIFF 07/20/2022 CBC w DIFF 11/13/2019 CBC w DIFF 04/29/2019 SED RATE (ESR) 12/30/2020 MAMMOGRAM DIGITAL BILATERAL SCREEN 06/14 CBC WITH AUTO DIFF 05/19/2023 CBC WITH AUTO DIFF 09/22/2023 Complete Blood Count Auto Diff RETIC 06/30/2021 RETIC 02/21/2025 Ferritin 10/17/2024 Ferritin 05/19/2023 Ferritin 04/18/2024 Ferritin 06/30/2021 Ferritin 09/22/2023 Ferritin 02/21/2025 Lipid Panel 04/18/2024 Vitamin B12 and Folate 02/21/2025 Folate 06/30/2021 Therapeutic Phlebotomy 04/07/2025 Next Appt Details Provider Name:Rajinder Guerrero , 06/23/2025 09:45:00 AM, [address] [place] [address] , SATYA Vela, [place], [address], Insurance Providers Payer Name Payer Address Payer Phone Subscriber Number Group Number Insured Name Patient Relationship to Insured Coverage Start Date Coverage End Date AETNA [address] [place] [phone] [id number] Larisa Dee Self - patient is the insured MEDICARE NGS [address] [place] [phone] [id number] LuizTamaraty Self - patient is the insured Medical (General) History Medical History History ICD Code history of iron deficiency celiac disease bunion left foot history of herpes zoster erythrocytosis episode of Raynaud's syndrome October invasive lobular carcinoma, l eft breast,ER+NV+Her-,8mm,N0 Left breast cancer in 2018, Gallbladder surgery in the past June 2017 invasive lobular carcinoma, l eft breast,ER+NV+Her-,8mm Surgical History Surgery Date(Month/Year) Gallbladder surgery Cholecystectomy 09/2022 drainage tonsillar abscess 12/2018 left breast lumpectomy,SN, invasive lobu lar carcinoma 06/2017 Hospitalization History Reason Date(Month/Year) No history tonsilitis 09/2021
--- OUTSIDE RECORDS SUMMARY | 2025-04-07 09:28 | XMS_ITS | Patient Health Record ---
Author Organization [facility] Address [address] [place] [address] Care Team Providers Care Novelty Worker Name Role Phone Deandra Vaughn Primary Care Provider Tevin Moreno Jr Unavailable [phone] Allergies Allergen (clinical drug ingredient) Drug/Non [...] Status Risk Notes Problem Colon cancer screening (082013292) Colon cancer screening (Z12.11) Active confirmed Problem Flatulence, eructation and gas pain (046410024) Bloating (R14.0) Active confirmed Problem Gastroesophageal reflux disease (449688112) GERD (gastroesophageal reflux disease) (K21.9) Active confirmed Problem Gastroesophageal reflux disease (215407764) Gastroesophageal reflux disease, unspecified whether esophagitis present (K21.9) Active confirmed Plan Of Treatment Future Test Test Name Order Date UPPER GI ENDOSCOPY 01/04/2023 COLONOSCOPY 01/04/2023 Insurance Providers Payer Name Payer Address Payer Phone Subscriber Number Group Number Insured Name Patient Relationship to Insured Coverage Start Date Coverage End Date Aetna (No Referra l) [address] [address] [place] [address] [id number] PIYUSH DEE Self - patient is the insured Medical (General) History Medical History History ICD Code Hypertension Hyperlipidemia Left breast cancer, XRT and hormonal the rapy Polycythemia Anxiety Recent seizures, MRI of the brain pendin g Colonoscopy 07/25/08, hyperplastic polyps x2, ten-year followup Surgical History Surgery Date(Month/Year) Left breast cancer, lumpectomy/axillary node dissection 08/02 Cholecystectomy 10/07
--- OUTSIDE RECORDS SUMMARY | 2025-04-07 09:29 | XMS_ITS | Data Portability ---
Author Organization [place] - [facility], Allergy Address [address] [place] [address] Care Team Providers Care Matching Machine Operator Name Role Phone TIAGO SEAMAN [...] By Organization Details Last Modified Time 06/10/2024 52170 Patient with hig h body mass index [...] Organization Details Recorded Time Peritonsi llar abscess 64410290 Active 2018 Peritonsi llar abscess; Note: Date Diagnosed : 12/19/2018 4:14 PM (J36) Not Available [facility] 4 02:56:17 Recurrent acute streptoco ccal tonsillit is 61659571868 887518 Active 2021 Acute recurrent streptoco ccal tonsillit is; Note: Date Diagnosed : 07/20/2021 10:23 AM (J03.01) Not Available [facility] 4 02:56:17 Chronic tonsillit is 86345948 Active 2021 Chronic tonsillit is; Note: Date Diagnosed : 11/10/2021 3:33 PM (J35.01) Not Available [facility] 4 02:56:16 Snoring 84699030 Active 2024 LUKE CORTEZ MD [address] [facility],[place] [address], [place], [address] , [facility] - [facility] 5 14:08:39 Hypertrop hy of tonsils 25318349 [facility] 2024 LUKE CORTEZ MD [address] [facility],[place] [address], [place], [address] , [facility] - [facility] 14:08:44 Problem Notes None recorded. Procedures Surgical History Date Name Laterality Status Provider Name and Address Organization Details Recorded Time lumpectomy of breast completed LUKE POWER MD [address] [facility],[place] [address], [place], [address], [facility] - [facility] 06/10/2024 14:05:51 incision of gallbladder completed Lynn Belcher [facility] 06/10/2024 14:15:15 Imaging Results None recorded. Procedure Notes None recorded. Medical Equipment None Reported. Allergies Allergen ID Allergen Name Allergen Category Reaction Reaction Severity Criticality Documentation Date Start Date Code Code System Note Provider Name and Address Organization Details Recorded Time 902086 Eggs (edible) (substanc e) food,medi cation other Not available Not available 08/29/2023 13216 3004 SNOMED React ion: unkno wn, unspe cifie d;; Not Available [facility] 4 01:12:27 Medications Name Sig Start Date Stop Date Status Note LastModified by Organization Details LastModified Time losartan 50 mg tablet 07/20 completed Medicati on ID: [id number] D uration Value: 90 Brand Name: losartan [...] 1 mg tablet active Medicati on ID: [id number] B rand Name: marisela ole Send Method: E-Prescr ibed Sub s Allowed: subs OK Speci al Instruct ion: TAKE 1 TABLET BY MOUTH EVERY DAY Medi cationGe nericNam e: anastroz ole Not Available Not Available Not Available clindamyc in HCl 300 mg capsule 1 capsule by mouth 12/29 completed Medicati on ID: [id number] D uration Value: 10 Prescri bed By [...] by mouth 2018 active Medicati on ID: [id number] D uration Value: 5 Prescri bed By [...] mg tablet 07/20 completed Medicati on ID: [id number] B rand Name: losartan -hydroch lorothia zide Sen d Method: E-Prescr ibed Sub s Allowed: subs OK Speci al Instruct ion: TAKE 1 TABLET BY MOUTH EVERY DAY Medi cationGe nericNam e: losartan -hydroch lorothia zide Not Available Not Available Not Available hydrochlo rothiazid e 12.5 mg tablet active Medicati on ID: [id number] B rand Name: hydrochl orothiaz jose Send [...] Updated DateTime 06/10/2024 165.1 cm 36.9 kg/m2 525226.51 g Antionette Galindo [place] - [facility] 06/10/2024 13:53:41 Social History None [...] ICD10 Code Diagnosis IMO Codes Diagnosis Note [id number] LUKE CORTEZ MD [facility] [address] [place] [address] 06/10/2024 13:44:02 06/10/2024 15:22:07 Snoring 53597305 R06.83 Hypertroph y of tonsils 30747771 J35.1 Body mass index 30+ - obesity 562710856 Z68.36 Health Concerns Section Related Observation LastModified by Organization Detai ls LastModified Time None Recorded Concern Status LastModified by Organization Details LastModified Time None Recorded Advance Directives Directive None Recorded Payers Insurance Date Sequence Insurance Name Policy Number Policy Maradiaga Covered Member ID Maradiaga Member ID Guarantor Name 06/10/2024 1 MEDICARE B-[place]: [facility] [employer] Larisa Dee [id number] Larisa Dee 06/10/2024 1 [employer]ET[employer] (MEDICARE REPLACEMENT/A DVANTAGE - PPO) [id number] Larisa Dee [id number] Larisa Dee Notes Date Note Type Note [...] breast cancer and reflux. LUKE POWER MD [address] [place] [address], [place], [address], [facility] - [facility] 06/10/2024 14:10:24 OBGyn Episode No OBEpisode recorded.
== END 2025-04-07 08:52 | disposition home or self-care (01) ==
LOC: HO.BBR 08:51
PROVIDERS: PCP Internal Medicine; Visit Provider Internal Medicine Medical Oncology
DX: D75.1 Secondary polycythemia (principal)
CPT/HCPCS: 36415; 85025

== ENCOUNTER 2025-04-15 10:48 | Outpatient (AMB) | payer MEDICARE, SELFPAY ==
--- OUTSIDE RECORDS SUMMARY | 2024-03-25 13:15 | XMS_ITS ---
Author Organization Rajinder Guerrero III, MD Address [address] [place] [address] [place] [address] Care Team Providers Care Wheel Buffer Name Role Phone Roderick TAPIA, Deandra Primary Care Provider Dr. Rajinder Camargo III Unavailable REASON FOR VISIT Follow-up Social History Sex Assigned At : Social History Observation Description Sex Assigned At Female Encounters Encounter Location Date Provider Diagnosis Rajinder Guerrero III, MD [address] [place] [address] [address] [facility] [place] [address] 03/25/2024 Rajinder Guerrero Plan Of Treatment Next Appt Details Provider Name:Rajinder Guerrero , 06/23/2025 09:45:00 AM, [address] [place] [address] [place], [address], Progress Notes * Larisa DEEDOB:1955 (70 yo F)Acc No.[id number]:03/25/2024 Progress Notes Patient: Larisa BATES Provider: Oliva Guerrero MD :1955 A ge:69 Y S ex:Female Date:03/25/2024 Address:[address] [place], [place] [address] [id number] Pcp:Deandra Vaughn MD Subjective: * Chief Complaints: [...] Date: 05/26/2023 Generated for Jannie stover/Baljit/Annalise on: 02:36 PM EST
--- OUTSIDE RECORDS SUMMARY | 2024-04-18 04:00 | XMS_ITS ---
Author Organization Rajinder Guerrero III, MD Address [address] [place] [address] Care Team Providers Care Child Adolescent Psychiatrist Name Role Phone Roderick TAPIA, [facility] Primary Care Provider Dr. Rajinder Camargo III Unavailable [phone] Allergies Allergen (clinical drug ingredient) Drug/Non Drug [...] Date Provider Diagnosis Rajinder Guerrero III, MD [address] [place] [address] [place] [address] 04/18/2024 Rajinder Guerrero Iron deficiency E61. 1 [...] her to the smoking cessation program at [facility]. 04/18/2024 Raynaud's syndrome without gangrene (ICD-10 [...] Provider Name:Rajinder Guerrero , 06/23/2025 09:45:00 AM, [address] [place] [address] [address] [address], [place], [address], Progress Notes * LUIZ LarisaDOB:1955 (69 yo F)Acc No.[id number]:04/18/2024 Progress Notes Patient: Larisa BATES Provider: Oliva Guerrero MD :1955 A ge:69 Y S ex:Female Date:04/18/2024 Address:[address] [place], [place] [phone] Pcp:Deandra Vaughn MD Subjective: * Chief Complaints: [...] N egative S he was born in [place] and is . She has 2 sons and works at [employer] in [place]. Smoking: Occasional, Exercise: Uses an exercise bike. [...] her to the smoking cessation program at [facility]. 5 . R aynaud's syndrome without [...] 0 04/18/2024 Generated for Jannie stover/Baljit/Annalise on: 02:36 PM EST History and Physical Notes * [...]
--- OUTSIDE RECORDS SUMMARY | 2024-10-17 04:15 | XMS_ITS ---
Author Organization Rajinder Guerrero III, MD Address [address] [place] [address] Care Team Providers Care Copper Plater Name Role Phone Roderick TAPIA, [facility] Primary Care Provider Dr. Rajinder Camargo III [...] Date Provider Diagnosis Rajinder Guerrero III, MD [address] [place] [address] [place] [address] 10/17/2024 Rajinder Rodriguesne Iron deficiency E61. 1 [...] her to the smoking cessation program at [facility]. 10/17/2024 Malignant neoplasm of upper-outer quadrant [...] Provider Name:Rajinder Rodriguesne , 06/23/2025 09:45:00 AM, [address] [place] [address] [address], [place], [address], Progress Notes * Larisa DEEDOB:1955 (69 yo F)Acc No.[id number]:10/17/2024 Progress Notes Patient: Larisa BATES Provider: Oliva Guerrero MD :1955 A ge:69 Y S ex:Female Date:10/17/2024 Address:[address] [place], [place] [phone] Pcp:Deandra Vaughn MD Subjective: * Chief Complaints: [...] urrent smoker S he was born in [place] and is . She has 2 sons and works at [employer] in [place]. Smoking: Occasional, Exercise: Uses an exercise bike. [...] her to the smoking cessation program at [facility]. 4 . M alignant neoplasm of [...] MD Date: 0 10/17/2024 Generated for Jannie stover/Baljit/Annalise on: 1 02:36 PM EST History and Physical Notes [...]
--- OUTSIDE RECORDS SUMMARY | 2024-12-10 11:32 | XMS_ITS ---
Author Organization Rajinder Guerrero III, MD Address [address] [place] [address] Care Team Providers Care Retail Shift Supervisor Name Role Phone Roderick TAPIA, [facility] Primary Care Provider Dr. Rajinder Camargo III Unavailable REASON FOR VISIT FYI only Social History Sex Assigned At : Social History Observation Description Sex Assigned At Female Encounters Encounter Location Date Provider Diagnosis Rajinder Guerrero III, MD [address] [place] [address] [address] [facility] [place] [address] 12/10/2024 Rajinder Guerrero Plan Of Treatment Next Appt Details Provider Name:Rajinder Guerrero , 06/23/2025 09:45:00 AM, [address] [place] [address] [place], [address], Progress Notes * Larisa HERRERADOB:1955 (69 yo F)Acc No.[id number]:12/10/2024 Patient: Larisa BATES :1955 A ge:69 Y S ex:Female Address:[address] [place] [address] * true * Date: Generated for Cintiai ng/Falittleg/eTransmitting on: 02:35 PM EST
--- OUTSIDE RECORDS SUMMARY | 2025-02-21 04:00 | XMS_ITS ---
Author Organization Rajinder Guerrero III, MD Address [address] [address] Care Team Providers Care Combat Rifle Crewmember Name Role Phone Roderick TAPIA, [facility] Primary Care Provider Dr. Rajinder Camargo III Unavailable Allergies Allergen (clinical drug ingredient) Drug/Non Drug Allergy documented on EMR Reaction Allergy Type Onset Date Status Egg Protein (Egg White) Unknown Drug Allergy Active tirzepatide Zepbound rash Drug Allergy Activ e REASON FOR VISIT Carcinoma left breast, Tobacco dependence, Morbid obesity, Polycythemia vera, Iron deficiency Medications Medication SIG (Take, Route, Frequency, Duration) Notes Start Date End Date Status Metoprolol Tartrate 50 MG TAKE 1 TABLET BY MOUTH TWICE A DAY Oral Active LORazepam 1 MG Oral Activ e Atorvastatin Calcium 40 MG Oral Active Diclofenac Sodium 75 MG TAKE 1 [...] Answer Notes Patient is a current smoker Problems Problem Type SNOMED Code ICD Code Onset Dates Problem Status W/U Status Risk Notes Problem Macrocytic anemia (31752756) Macrocytic anemia (D53.9) Active confirmed Her mean cell volume remains slightly elevated. Her hematocrit varies between 34 and 36. Phlebotomy has not been necessary recently. Vital Signs Temperature 98.1 degrees Fahrenheit 02/22/20 25 Blood pressure systolic 126 mm Hg 02/22/20 25 Blood pressure diastolic 56 mm Hg 025 Heart Rate 51 /min 02/21/2025 Height 65 in 02/21/2025 Weight 227 lbs 02/21/2025 BMI 37.77 kg/m2 02/21/2025 Encounters Encounter Location Date Provider Diagnosis Rajinder Guerrero III, MD [address] [place] [address] [place] [address] 02/21/2025 Rajinder Guerrero Iron deficiency E61. 1 ; Polycythemia vera D45 ; Obesity E66.9 ; Macrocytic anemia D53.9 ; Tobacco dependence F17.200 ; Raynaud's syndrome without gangrene I73.00 and Malignant neoplasm of upper-outer quadrant of left female breast, 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 Assessments Encounter Date Diagnosis (ICD Code) Assessment Notes Treatment Notes Treatment Clinical Notes 02/21/2025 Iron deficiency (ICD-10 - E61.1) She is no longer anemic and a mean cell volume is macrocytic. She'll be observed carefully. The iron will be continued. Comprehensive blood work with a ferritin has been ordered.She has been phlebotomize continuously. Close observation will occur and. Treatment used if necessary. 02/21/2025 Polycythemia vera (ICD-10 - D45) Her polycythemia is stable and her hematocrit is in the normal range. She will have the CBC done every 2 months instead of one now that she is stable. She will avoid taking iron-containing medications. 02/21/2025 Obesity (ICD-10 - E66.9) She has lost 22 pounds since her last visit. She is using Zepbound. Her regimen was continued unchanged. 02/21/2025 Macrocytic anemia (ICD-10 - D53.9) Her mean cell volume remains slightly elevated. Her hematocrit varies between 34 and 36. Phlebotomy has not been necessary recently. 02/21/2025 Tobacco dependence (ICD-10 - F17.200) She continues to smoke and I have made her aware of the health consequences doing so. I have referred her to the smoking cessation program at [facility]. 02/21/2025 Raynaud's syndrome without gangrene (ICD-10 - I73.00) No further episodes of Raynaud's syndrome have occurred since her last visit. 02/21/2025 Malignant neoplasm of upper-outer quadrant of left female breast, unspecified estrogen receptor status (ICD-10 - C50.412) She continues with surveillance mammography and breast self examination. There was no sign of metastatic disease or recurrence today. Her anastrozole was continued. Plan Of Treatment Medication Medication Name Sig Start Date Stop Date Notes Metoprolol Tartrate 50 MG TAKE 1 TABLET BY MOUTH TWICE A DAY Oral LORazepam 1 MG Oral Atorvastatin Calcium 40 MG Oral Diclofenac Sodium 75 MG TAKE 1 TABLET BY MOUTH TWICE A DAY Oral Losartan Potassium-HCTZ 100- 25 MG TAKE 1 TABLET BY MOUTH EVERY DAY Oral Pending Test Test Name Order Date PROFILE, RANDOM (COMPREHENSIVE METABOLIC ) 02/21/2025 CBC w DIFF 02/21/2025 RETIC 02/21/2025 Ferritin 02/21/2025 Vitamin B12 and Folate 02/21/2025 Next Appt Details Follow Up: 4 Months, Reason: OV Provider Name:Rajinder Guerrero , 06/23/2025 09:45:00 AM, [address] [place] [address], [address], [phone], Progress Notes * Larisa DEEDOB:1955 (69 yo F)Acc No.[id number]:02/21/2025 Progress Notes Patient: Larisa BATES Provider: Oliva Guerrero MD :1955 A ge:69 Y S ex:Female Date:02/21/2025 Address:[address] [place] [phone] Pcp:Deandra Vaughn MD Subjective: * Chief Complaints: * C arcinoma left breastTobacco dependenceMorbid obesityPolycythemia veraIron deficiency * HPI: C OVID-19 Screening: She returns to the office for ongoing management of breast cancer and polycythemia vera. She has not been requiring therapeutic phlebotomy. Her latest hematocrit was 34%. She feels generally healthy and well and has no new complaints. She has been conducting breast self-examination with negative results. Her blood work was reviewed with her in detail. She is only smoking 3 cigarettes a week now. She is involved in the weight loss program at [facility] and has been having a cardiac and pulmonary evaluation. A stress echo was normal and a pulmonary function test showed mild restrictive disease somewhat related to her weight. She reports no chest pain and her breathing is comfortable. Her blood work was reviewed with her. She has a mild anemia. No change in her regimen was necessary. Blood work will continue at short intervals and she will return to the office in 3 months. Questions H ave you had any new [...] enies. D iarrhea d enies. H eartburn o ccasional. N ausea d enies. R ectal bleeding [...] urrent smoker S he was born in [place] and is . She has 2 sons and works at [employer] in [place]. Smoking: Occasional, Exercise: Uses an exercise bike. * Medications: T akingLosartan Potassium-HCTZ 100-25 MG Tablet TAKE 1 TABLET BY MOUTH EVERY DAY Oral Diclofenac Sodium 75 MG Tablet Delayed Release TAKE 1 TABLET BY MOUTH TWICE A DAY Oral Metoprolol Tartrate 50 MG Tablet TAKE 1 TABLET BY MOUTH TWICE A DAY Oral LORazepam 1 MG Tablet Oral Atorvastatin Calcium 40 MG Tablet Oral Taking Losartan Potassium-HCTZ 100-25 MG Tablet TAKE 1 TABLET BY MOUTH EVERY DAY Oral Taking Diclofenac Sodium 75 MG Tablet Delayed Release TAKE 1 TABLET BY MOUTH TWICE A DAY Oral Taking Metoprolol Tartrate 50 MG Tablet TAKE 1 TABLET BY MOUTH TWICE A DAY Oral Taking LORazepam 1 MG Tablet Oral Taking Atorvastatin Calcium 40 MG Tablet Oral DiscontinuedPravastatin Sodium 40 MG Tablet 1 tablet Orally Once a day Zepbound 2.5 MG/0.5ML Solution 0.5 mL Subcutaneous Medication List reviewed and reconciled with the patientDiscontinued Pravastatin Sodium 40 MG Tablet 1 tablet Orally Once a day Discontinued Zepbound 2.5 MG/0.5ML Solution 0.5 mL Subcutaneous Medication List reviewed and reconciled with the patient * Allergies: Z epbound: rashEgg Protein (Egg White)no[Allergies Verified] Objective: * Vitals: H t: 65, Wt:227, BMI:37.77, BP:126/56, HR:51, Temp:98.1, Wt-k.97. * P ast Orders: Lab:Therapeutic Phlebotomy * Collection Date 02/04/2025 12/02/2024 10/01/2024 Collection Time 10:05 AM 10:05 AM 10:01 AM Order Date 02/04/2025 12/02/2024 10/01/2024 THER/HCT TNP (Ref Range: 37.0-47.0 %) TNP (Ref Range: 37.0-47.0 %) TNP (Ref Range: 37.0-47.0 %) THER/HGB TNP (Ref Range: 12.0-16.0 g/dL) TNP (Ref Range: 12.0-16.0 g/dL) TNP (Ref Range: 12.0-16.0 g/dL) Therapeutic Phlebotomy TNP TNP TNP * Lab:Complete Blood Count Aut o Diff * Collection Date 02/04/2025 12/02/2024 10/01/2024 Collection Time 10:09 AM 10:15 AM 10:08 AM Order Date 02/04/2025 12/02/2024 10/01/2024 White Blood Count 7.1 (Ref Range: 4.8-10.8 X10*3/uL) 8.0 (Ref Range: 4.8-10.8 X10*3/uL) 8.6 (Ref Range: 4.8-10.8 X10*3/uL) Red Blood Count 3.45 L (Ref Range: 4.20-5.50 X10*6/uL) 3.59 L (Ref Range: 4.20-5.50 X10*6/uL) 3.50 L (Ref Range: 4.20-5.50 X10*6/uL) Hemoglobin 11.5 L (Ref Range: 12.0-16.0 g/dl) 12.1 (Ref Range: 12.0-16.0 g/dl) 12.1 (Ref Range: 12.0-16.0 g/dl) Hematocrit 34.9 L (Ref Range: 37.0-47.0 %) 36.0 L (Ref Range: 37.0-47.0 %) 35.7 L (Ref Range: 37.0-47.0 %) Mean Corpuscular Volume 101.2 H (Ref Range: 80.0-98.0 fL) 100.3 H (Ref Range: 80.0-98.0 fL) 102.0 H (Ref Range: 80.0-98.0 fL) Mean Corpuscular Hemoglobin 33.3 H (Ref Range: 27.0-33.0 pg) 33.7 H (Ref Range: 27.0-33.0 pg) 34.6 H (Ref Range: 27.0-33.0 pg) Mean Corpuscular HGB Conc 33.0 (Ref Range: 31.0-35.0 g/dl) 33.6 (Ref Range: 31.0-35.0 g/dl) 33.9 (Ref Range: 31.0-35.0 g/dl) Red Cell Distribution Width 13.6 (Ref Range: 11.0-16.0 %) 13.2 (Ref Range: 11.0-16.0 %) 14.1 (Ref Range: 11.0-16.0 %) Platelet Count 285 (Ref Range: 160-400 X10*3/uL) 310 (Ref Range: 160-400 X10*3/uL) 311 (Ref Range: 160-400 X10*3/uL) Mean Platelet Volume 9.9 (Ref Range: 9.4-12.3 fL) 9.5 (Ref Range: 9.4-12.3 fL) 9.6 (Ref Range: 9.4-12.3 fL) Neutrophils Percent Auto 70.8 (Ref Range: 45-73 %) 75.4 H (Ref Range: 45-73 %) 74.4 H (Ref Range: 45-73 %) Imm Gran Pct Auto 0.3 (Ref Range: 0.0-0.4 %) 0.4 (Ref Range: 0.0-0.4 %) 0.5 H (Ref Range: 0.0-0.4 %) Lymphocytes Percent Auto 16.4 L (Ref Range: 20-40 %) 13.4 L (Ref Range: 20-40 %) 13.8 L (Ref Range: 20-40 %) Monocytes Percent Auto 9.0 (Ref Range: 2-11 %) 8.1 (Ref Range: 2-11 %) 9.1 (Ref Range: 2-11 %) Eosinophils Percent Auto 2.7 (Ref Range: 0-4 %) 2.0 (Ref Range: 0-4 %) 1.8 (Ref Range: 0-4 %) Basophils Percent Auto 0.8 (Ref Range: 0-2 %) 0.7 (Ref Range: 0-2 %) 0.4 (Ref Range: 0-2 %) NRBC Pct Auto 0.0 (Ref Range: 0.0-0.2 /100WBC) 0.0 (Ref Range: 0.0-0.2 /100WBC) 0.0 (Ref Range: 0.0-0.2 /100WBC) Neutrophils Absolute Auto 5.0 (Ref Range: 2.0-8.3 x10*3/uL) 6.1 (Ref Range: 2.0-8.3 x10*3/uL) 6.4 (Ref Range: 2.0-8.3 x10*3/uL) Imm Gran Abs Auto 0.02 (Ref Range: 0.00-0.03 X10*3/uL) 0.03 (Ref Range: 0.00-0.03 X10*3/uL) 0.04 H (Ref Range: 0.00-0.03 X10*3/uL) Lymphocytes Absolute Auto 1.2 (Ref Range: 1.2-4.9 X10*3/uL) 1.1 L (Ref Range: 1.2-4.9 X10*3/uL) 1.2 (Ref Range: 1.2-4.9 X10*3/uL) Monocytes Absolute Auto 0.6 (Ref Range: 0.1-1.2 X10*3/uL) 0.7 (Ref Range: 0.1-1.2 X10*3/uL) 0.8 (Ref Range: 0.1-1.2 X10*3/uL) Eosinophils Absolute Auto 0.2 (Ref Range: 0.0-0.4 X10*3/uL) 0.2 (Ref Range: 0.0-0.4 X10*3/uL) 0.2 (Ref Range: 0.0-0.4 X10*3/uL) Basophils Absolute Auto 0.1 (Ref Range: 0.0-0.2 X10*3/uL) 0.1 (Ref Range: 0.0-0.2 X10*3/uL) 0.0 (Ref Range: 0.0-0.2 X10*3/uL) NRBC Abs Auto 0.000 (Ref Range: 0.0-0.012 X10*3/uL) 0.000 (Ref Range: 0.0-0.012 X10*3/uL) 0.000 (Ref Range: 0.0-0.012 X10*3/uL) * Examination: G eneral Examination: GENERAL APPEARANCE: p leasant, well nourished, well developed, in no acute distress, calm and relaxed. HEAD: a traumatic, normocephalic. EYES: e geovany, [...] sounds normal, no ascites, no organomegaly, no mass. RECTAL EXAM: n ot examined. MUSCULOSKELETAL: e [...] and. Treatment used if necessary. 3 . O besity - E66.9 N otes :She has lost 22 pounds since her last visit. She is using Zepbound. Her regimen was continued unchanged. 4 . M acrocytic anemia - D53.9 N otes :Her mean cell volume remains slightly elevated. Her hematocrit varies between 34 and 36. Phlebotomy has not been necessary recently. 5 . T obacco dependence - F17.200 N otes :She continues to smoke and I have made her aware of the health consequences doing so. I have referred her to the smoking cessation program at [facility]. 6 . R aynaud's syndrome without gangrene - I73.00 N otes :No further episodes of Raynaud's syndrome have occurred since her last visit. 7 . 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 There was no sign of metastatic disease or recurrence today. Her anastrozole was continued. Plan: * Treatment: 2. I kassy deficiency Continue Losartan Potassium-HCTZ Tablet, 100-25 MG, TAKE 1 TABLET BY MOUTH EVERY DAY, Oral; C ontinue Diclofenac Sodium Tablet Delayed Release, 75 MG, TAKE 1 TABLET BY MOUTH TWICE A DAY, Oral; Continue Metoprolol Tartrate Tablet, 50 MG, TAKE 1 TABLET BY MOUTH TWICE A DAY, Oral; C ontinue LORazepam Tablet, 1 MG, Oral; C ontinue Atorvastatin Calcium Tablet, 40 MG, Oral. L AB: PROFILE, RANDOM (COMPREHENSIVE METABOLIC) L AB: CBC w DIFF L AB: RETIC L AB: Ferritin L AB: Vitamin B12 and Folate 3. O besity L AB: PROFILE, RANDOM (COMPREHENSIVE METABOLIC) L AB: CBC w DIFF L AB: RETIC L AB: Ferritin L AB: Vitamin B12 and Folate 4. M acrocytic anemia L AB: PROFILE, RANDOM (COMPREHENSIVE METABOLIC) L AB: CBC w DIFF L AB: RETIC L AB: Ferritin L AB: Vitamin B12 and Folate * Procedure Codes: * Preventive Medicine: Counseling: [...] of tobacco use and urged to quit. 1 04/23/2024 Patient Lifestyle Goals P atient wants to quit Treatment Goals S et a quit date, Cut down by 1 cigarette a week Barriers S ocial smoker, Stress Self-Management Plan M analia a plan to cut down number of cigarettes over time and set a date to work towards quitting K . * Follow Up: 4 Months (Reason: OV) * Images: * Sign off status: Completed true * Provider: Oliva Guerrero MD Date: 04/23/2024 Generated for Cintiai jolanta/Baljit/Sukiransmitting on: 02:36 PM EST History and Physical Notes * HPI (History of Present Illness) Category Sub-Category Detail Notes COVID-19 Screening Questions Have you had any new onset fever, chills, cough, congestion, sore throat, shortness of breath, muscle aches?: No Examination Category Sub-Category Detail Notes General Examination GENERAL APPEARANCE: pleasant , well nourished, well developed, in no acute distress, calm and relaxed HEAD: atraumatic, normocep halic EYES: eomi, perrla, anicte kanwla, conjugate EARS: normal NOSE: septum intact NECK/THYROID: no jugular venous di stention, no carotid bruit, thyroid normal HEART: no clicks, gallops, murmurs, or rubs, regular rhythm, S1, S2 normal, no s3, or vascular bruits LUNGS: clear to auscultatio n ABDOMEN: bowel sounds normal, no ascites, no organomegaly, no mass NEUROLOGIC: alert and oriented, cranial nerves 2-12 [...]
--- NOTE | 2025-04-15 10:35 | A.OFFWM_ITS ---
Intake Intake Visit Reasons: VIDEO PO LSG 03/20/25 Allergies oxycodone (From OxyContin) Allergy (Severe, Verified 03/26/25 11:20) severe nausea environmental allergies Allergy (Intermediate, Verified 03/26/25 11:20) Itchy Eyes egg (Egg) Adverse Reaction (Intermediate, Verified 03/26/25 11:20) Gastrointestinal Upset PFSH Medical History Back pain BMI 34.0-34.9,adult Obesity Cardiomegaly Abnormal EKG GERD (gastroesophageal reflux disease) Anxiety Sleep apnea treated with continuous positive airway pressure (CPAP) Morbid obesity Polycythemia Orthostatic dizziness Hypercholesterolemia Hypertension History of left breast cancer Surgical History History of esophagogastroduodenoscopy (EGD) Hx of colonoscopy Hx of bladder endoscopy Hx laparoscopic cholecystectomy (09/20/22) History of lymph node excision History of lumpectomy of left breast Family History Mother Hypertension High cholesterol Angina at rest Father Hypertension High cholesterol Alcoholic Son No problems noted. Son Hx of sleep apnea Social History Household Members: Significant Other Housing: Apartment Are you a primary intensive care ambulance paramedic to a significant other at home: No Do you presently have visiting nurse or other home services: No Alcohol intake: current Alcohol intake frequency: does not drink Patient Tobacco Use Status: Current someday Tobacco user Tobacco use type: Cigarette Cigarettes Per Day: 1 Years Smoked: 40 e-Cigarette/Vaping Use: Never Used Second Hand Smoke Exposure: No service: No Current occupational status: employed Behavioral Health Assessment Weight Management Therapy Therapy Notes Details Subjective: The patient is status post bariatric surgery on?03/20/2025. Weight on the day of surgery was?214 lbs, with a most recent weight of?207 lbs?as of last . The patient denies pain or complications and reports tolerating the prescribed liquid diet well. The patient reports emotional challenges managing the holiday season, noting difficulty related to cooking for others and missing the social and communal aspects of eating, despite denying hunger. Mood is described as?normal. She identifies her and family as primary supports. She denies hunger, c ravings, or food-related intrusive thoughts. The patient reports resuming exercise and is aiming to burn approximately?2,000 kcal per week?through physical activity. Objective: The patient presented for a post operative behavioral health follow-up. A guided emotional check-in assessed mood, adjustment, and recovery. Psychoeducation was provided regarding common post-bariatric emotional changes, distinguishing hunger from cravings, and strategies to support mindset and adherence to Weight Management Program guidelines. Program resources were reviewed. Assessment/Response: * Mental status: WNL * Risk reported/identified: None. Assessment & Plan Assessment & Plan (1) Anxiety: Code(s): F41.9 - Anxiety disorder, unspecified (2) Status post bariatric surgery: Code(s): Z98.84 - Bariatric surgery status Plan The patient is emotionally stable and adjusting well post?operatively. No follow?up is scheduled or indicated at this time. The patient was advised to reach out for behavioral health support as needed. No safety concerns identified. Telehealth Telehealth Telehealth Platform: DoxPlace[employer] Location of provider rendering services: other (Home office. [place], [place]) Location of patient: address on file Patient Identification confirmed using: Name, : Yes Telehealth method: voice only Patient verbally consented to treatment: Yes Patient verbally consented to billing insurance company: Yes Patient informed of any privacy concerns related to visit: Yes Minutes spent on Phone/Video with Pt.: 25 [place] [address] Tele Psytx 30 mins Patient Type Established Diagnoses Anxiety F41.9 Status post bariatric surgery Z98.84 Time Spent (min) 25
--- OUTSIDE RECORDS SUMMARY | 2025-04-15 14:36 | XMS_ITS | Patient Health Record ---
Author Organization [facility] Address [address] [place] [address] Care Team Providers Care Erector Operator Name Role Phone Deandra Vaughn Primary [...] Status Risk Notes Problem Colon cancer screening (020289770) Colon cancer screening (Z12.11) Active confirmed Problem Flatulence, eructation and gas pain (726141423) Bloating (R14.0) Active confirmed Problem Gastroesophageal reflux disease (605936418) GERD (gastroesophageal reflux disease) (K21.9) Active confirmed Problem Gastroesophageal reflux disease (057782080) Gastroesophageal reflux disease, unspecified whether esophagitis present (K21.9) Active confirmed Plan Of Treatment Future Test Test Name Order Date UPPER GI ENDOSCOPY 01/04/2023 COLONOSCOPY 01/04/2023 Insurance Providers Payer Name Payer Address Payer Phone Subscriber Number Group Number Insured Name Patient Relationship to Insured Coverage Start Date Coverage End Date Aetna (No Referra l) [address] [address] [place] [address] [id number] PIYUSH DEE Self - patient is the insured Medical (General) History Medical History History ICD Code Hypertension Hyperlipidemia Left breast cancer, XRT and hormonal the rapy Polycythemia Anxiety Recent seizures, MRI of the brain pendin g Colonoscopy 07/25/08, hyperplastic polyps x2, ten-year followup Surgical History Surgery Date(Month/Year) Left breast cancer, lumpectomy/axillary node dissection 08/02 Cholecystectomy 10/07
--- OUTSIDE RECORDS SUMMARY | 2025-04-15 14:37 | XMS_ITS | Patient Health Record ---
Author Organization Rajinder Guerrero III, MD Address [address] [place] [address] Care Team Providers Care Paleontology Teacher Name Role Phone Roderick TAPIA, [facility] Primary Care Provider Dr. Rajinder Camargo III Unavailable Allergies Allergen (clinical drug ingredient) Drug/Non Drug Allergy documented on EMR Reaction Allergy Type Onset Date Status Egg Protein (Egg White) Unknown Drug Allergy Active tirzepatide Zepbound rash Drug Allergy Activ e Results Component Value Reference Range Notes Complete Blood Count Auto Di ff Reviewed date:06/09/2024 09:13:32 AM Interpretation: Performing Lab:[facility], [address] [place] [phone] Notes/Report: White Blood Count 8.9 4.8-10.8 X10*3/uL [...] Phlebotomy Reviewed date:06/09/2024 09:13:32 AM Interpretation: Performing Lab:[facility], [address] [place] [phone] Notes/Report: THER/HGB TNP 12.0-16.0 g/dL Lab Results on file. Performed at [facility] on 05/28/24: Hgb: 13.1 g/dl Hct: [...] ff Reviewed date:08/03/2024 07:24:43 AM Interpretation: Performing Lab:[facility], [address] [place] [phone] Notes/Report: White Blood Count 8.5 4.8-10.8 X10*3/uL [...] Phlebotomy Reviewed date:08/03/2024 07:24:43 AM Interpretation: Performing Lab:[facility], [address] [place] [phone] Notes/Report: THER/HGB TNP 12.0-16.0 g/dL Lab Results on file. Performed at [facility] on 07/30/24: Hgb: 12.5 g/dl Hct: [...] ff Reviewed date:10/02/2024 01:20:13 PM Interpretation: Performing Lab:[facility], [address] [place] [phone] Notes/Report: White Blood Count 8.6 4.8-10.8 X10*3/uL [...] Phlebotomy Reviewed date:10/02/2024 01:20:13 PM Interpretation: Performing Lab:[facility], [address] [place] [phone] Notes/Report: THER/HGB TNP 12.0-16.0 g/dL Lab Results on file. Performed at [facility] on 10/01/24: Hgb: 12.1 g/dl Hct: [...] ff Reviewed date:12/02/2024 01:40:01 PM Interpretation: Performing Lab:[address] [address] Notes/Report: White Blood Count 8.0 4.8-10.8 X10*3/uL [...] Phlebotomy Reviewed date:12/02/2024 01:40:01 PM Interpretation: Performing Lab:[facility], [address] [place] [phone] Notes/Report: THER/HGB TNP 12.0-16.0 g/dL Lab Results on file. Performed at [facility] on 12/02/24: Hgb: 12.1 g/dl Hct: [...] ff Reviewed date:02/09/2025 07:31:57 AM Interpretation: Performing Lab:[facility], [address] [place] [phone] Notes/Report: White Blood Count 7.1 4.8-10.8 X10*3/uL [...] Phlebotomy Reviewed date:02/09/2025 07:31:57 AM Interpretation: Performing Lab:[facility], [address] [place] [phone] Notes/Report: THER/HGB TNP 12.0-16.0 g/dL Lab Results on file. Performed at [facility] on 02/04/25: Hgb: 11.5 g/dl Hct: 34.9 % THER/HCT TNP 37.0-47.0 % Therapeutic Phlebotomy TNP Reason: Pre-phlebotomy Hgb/Hct is below the established parameter for this patient. Please note that a copy of this report has been sent to the Primary Care Physician, the ordering physician and any physician designated by patient request. Complete Blood Count Auto Di ff Reviewed date:04/07/2025 04:59:29 PM Interpretation: Performing Lab:[facility], [address] [place] [phone] Notes/Report: White Blood Count 4.7 4.8-10.8 X10*3/uL [...] Auto 0.000 0.0-0.012 X10*3/uL Therapeutic Phlebotomy Reviewed date:04/07/2025 04:59:29 PM Interpretation: Performing Lab:[facility], [address] [place] [phone] Notes/Report: THER/HGB TNP 12.0-16.0 g/dL Lab Results on file. Performed at [facility] on 04/07/25: Hgb: 12.2 g/dl Hct: 37.5 % THER/HCT TNP 37.0-47.0 % Therapeutic Phlebotomy [...] Problem Status W/U Status Risk Notes Problem 498220504 Obesity (E66.9) Active confirmed She has lost 22 pounds since her last visit. She is using Zepbound. Her regimen was continued unchanged. Problem Postmenopausal state (26395052) Post-menopausal (Z78.0) Active confirmed She has not had a period in several years. Problem Polycythemia vera (445011567) Polycythemia vera (D45) Active confirmed Her polycythemia is stable and her hematocrit is in the normal range. She will have the CBC done every 2 months instead of one now that she is stable. She will avoid taking iron-containin g medications. Problem 22290158 Iron deficiency (E61.1) Active confirmed She is no longer anemic and a mean cell volume is macrocytic. She'll be observed carefully. The iron will be continued. Comprehensive blood work with a ferritin has been ordered.She has been phlebotomize continuously. Close observation will occur and. Treatment used if necessary. Problem 494529955 Raynaud's syndrome without gangrene (I73.00) Active confirmed No further episodes of Raynaud's syndrome have occurred since her last visit. Problem 86277229 Tobacco dependence (F17.200) Active confirmed She continues to smoke and I have made her aware of the health consequences doing so. I have referred her to the smoking cessation program at [facility]. Problem 465525709 Erythrocytosis (D75.1) Active confirmed She will continue the phlebotomy if needed. At this time her hematocrit and hemoglobin are normal. Currently, the increased red cell mass is well controlled. Problem Macrocytic anemia (13492955) Macrocytic anemia (D53.9) Active confirmed Her mean cell volume remains slightly elevated. Her hematocrit varies between 34 and 36. Phlebotomy has not been necessary recently. Problem 390959609 Morbid obesity (E66.01) Active confirmed She has [...] neoplasm of upper-outer quadrant of female breast (422924659) Malignant neoplasm of upper-outer quadrant of left female breast, unspecified estrogen receptor status (C50.412) Active confirmed She continues with surveillance mammography and breast self examination. There was no sign of metastatic disease or recurrence today. Her anastrozole was continued. Problem 953778681 Lobular carcinoma of left breast, stage 1 [...] Provider Diagnosis Rajinder Guerrero III, MD [address] [place] [address] [place] [address] 04/18/2024 Rajinder Guerrero Iron deficiency E61. 1 ; Polycythemia vera D45 ; Celiac disease K90.0 ; Tobacco dependence F17.200 ; Raynaud's syndrome without gangrene I73.00 ; Malignant neoplasm of upper-outer quadrant of left female breast, 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 and Morbid obesity E66.01 Rajinder Guerrero III, MD [address] [place] [address] [place] [address] 10/17/2024 Rajinder Guerrero Iron deficiency E61. 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 1 ; Polycythemia vera D45 ; Obesity E66.9 ; Macrocytic anemia D53.9 ; Tobacco dependence F17.200 ; Raynaud's syndrome without gangrene I73.00 and Malignant neoplasm of upper-outer quadrant of left female breast, 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 Rajinder Guerrero III, MD [address] [place] [address] [place], [place] [address] 12/10/2024 Rajinder Guerrero Assessments Encounter Date Diagnosis [...] her to the smoking cessation program at [facility]. 02/21/2025 Obesity (ICD-10 - E66.9) She has lost 22 pounds since her last visit. She is using Zepbound. Her regimen was continued unchanged. 04/18/2024 Tobacco dependence (ICD-10 - F17.200) She continues to smoke and I have made her aware of the health consequences doing so. I have referred her to the smoking cessation program at [facility]. 10/17/2024 Malignant neoplasm of upper-outer quadrant [...] her to the smoking cessation program at [facility]. 04/18/2024 Malignant neoplasm of upper-outer quadrant [...] Provider Name:Rajinder Guerrero , 06/23/2025 09:45:00 AM, [address] [place] [address] [address] [facility] [address], [place], [address], Insurance Providers Payer Name Payer Address Payer Phone Subscriber Number Group Number Insured Name Patient Relationship to Insured Coverage Start Date Coverage End Date [employer] [address] [place] [address] [id number] Larisa Dee Self - patient is the insured MEDICARE NGS [address] [place] [phone] [id number] ShajiLarisa fernandes Self - patient is the insured Medical [...]
== END 2025-04-15 11:20 | disposition home or self-care (01) ==
LOC: HO.HBST 10:48
PROVIDERS: PCP Internal Medicine; Visit Provider Counselor Mental Health
DX: F41.9 Anxiety disorder, unspecified (principal); Z98.84 Bariatric surgery status
CPT/HCPCS: 90832